=== PATIENT | female | born 2000 | race Caucasian/White ===

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

== ENCOUNTER 2020-01-02 16:13 | Emergency (ER) | payer MEDICAID, SELFPAY ==
[2020-01-02 16:14] VITALS: BP 156/89; PULSE 107; PULSE 99; RESP 17; RESP 18; TEMP 36.7; O2SAT 96; BMI 40.5
--- NOTE | 2020-01-02 16:35 | ED.DCSUM_ITS ---
History of Present Illness Chief Complaint: Abd Pain Informant: Patient, Family Onset: Days - 3 days Context: Gradual Onset Timing: Waxes and wanes Current Severity: Mild Maximum Severity: Moderate Narrative: Patient presents a 3-day history of periumbilical abdominal pain. Family notes he thought was because she is not having normal bowel movements and gave her a laxative. In spite of having a bowel movement she still complains of pain. She had no fever. No vomiting. She has not had a menstrual cycle in the last 4 months. Family family called PCP today who advised her to come to the emergency room for possible CT scan. - Past Medical History (1) Hypothyroid Status: Chronic Past Medical History - Allergies and Home Meds Allergies/Adverse Reactions: Allergies amoxicillin [From Augmentin] Allergy (Verified 01/02/20 16:13) Other amoxicillin trihydrate [From Augmentin] Allergy (Verified 01/02/20 16:13) Other azithromycin Allergy (Verified 01/02/20 16:13) Other clavulanic acid [From Augmentin] Allergy (Verified 01/02/20 16:13) Other erythromycin base [From E-Mycin] Allergy (Verified 01/02/20 16:13) Unknown potassium clavulanate [From Augmentin] Allergy (Verified 01/02/20 16:13) Other ibuprofen Adverse Reaction (Verified 01/02/20 16:13) Nausea Primary Care Physician: Care Physician,No Primary [Primary Care Provider] - Prior records reviewed: Yes Surgical History: no surgical history Lives: With Family Smoking Status: Never smoker Review of Systems General: Denies: Chills, Fever Eyes: Denies: Visual changes - bilaterally ENT: Denies: Bilateral ear pain Cardiovascular: Denies: Chest pain Respiratory: Denies: Dyspnea, Cough Gastrointestinal: Reports: Abdominal pain. Denies: Nausea, Vomiting, Diarrhea Genitourinary: Denies: Dysuria Musculoskeletal: Denies: Extremity Pain Skin: Denies: Rash Neurological: Denies: Headache Allergy: Denies: Uticaria Physical Exam Vital Signs/Narrative: Vital Signs Temp Pulse Resp BP Pulse Ox 01/02/20 16:14 98.0 F 99 17 156/89 H 96 Inital Vital Signs reviewed: Yes General: Well nourished, Well developed Head: Normocephalic ENT: Moist mucous membranes Neck: Supple Cardiovascular: Regular rate, Regular rhythm Respiratory: No distress, CTA bilaterally Abdomen: Soft, Nontender, Hypoactive bowel sounds Extremities: Nontender Skin: Normal color Neurological: Alert, Oriented x3 Psychological: Normal affect Diagnostic/Tx/Re-eval Impressions Abdomen X-Ray 01/02/20 17:15 IMPRESSION: Question mild constipation without evidence for obstruction. Electronically Signed: Sameer Saxena DO at 17:35 EDT Tel [phone], Service support , 01/02/20 17:15 XRAY Abdomen [Abd Inc Decub and/or Erect] [RAD] Stat Laboratory Results 01/02/20 01/02/20 01/02/20 16:50 16:50 16:50 WBC 12.7 H RBC 5.25 Hgb 14.7 Hct 46.5 MCV 88.6 MCH 28.0 MCHC 31.6 L RDW Std Deviation 43.8 RDW Coeff of Alcon 13.5 Plt Count 323 MPV 10.1 Immature Gran % (Auto) 0.200 Neut % (Auto) 49.9 Lymph % (Auto) 39.7 Mccreary % (Auto) 8.2 Eos % (Auto) 1.3 Baso % (Auto) 0.7 Absolute Neuts (auto) 6.3 Absolute Lymphs (auto) 5.04 H Nucleated RBC % 0 Differential Comment SEE COMMENT Platelet Estimate ADEQUATE RBC Morphology N CHROM Anisocytosis RARE Sodium 139 Potassium 3.8 Chloride 106 Carbon Dioxide 29.0 Anion Gap 4 L BUN 9 Creatinine 0.63 Estim Creat Clear Calc 144.89 Est GFR (MDRD) Af Amer 156 Est GFR (MDRD) Non-Af 129 BUN/Creatinine Ratio 14.3 Glucose 81 Calcium 9.6 Serum , Qual NEGATIVE Urine Color Urine Clarity Urine pH Ur Specific Lorraine Urine Protein Urine Glucose (UA) Urine Ketones Urine Occult Blood Urine Nitrite Urine Bilirubin Urine Urobilinogen Ur Leukocyte Esterase Urine RBC Urine WBC Ur Squamous Epith Cells Urine Bacteria Urine Mucus 01/02/20 19:05 WBC RBC Hgb Hct MCV MCH MCHC RDW Std Deviation RDW Coeff of Alcon Plt Count MPV Immature Gran % (Auto) Neut % (Auto) Lymph % (Auto) Mccreary % (Auto) Eos % (Auto) Baso % (Auto) Absolute Neuts (auto) Absolute Lymphs (auto) Nucleated RBC % Differential Comment Platelet Estimate RBC Morphology Anisocytosis Sodium Potassium Chloride Carbon Dioxide Anion Gap BUN Creatinine Estim Creat Clear Calc Est GFR (MDRD) Af Amer Est GFR (MDRD) Non-Af BUN/Creatinine Ratio Glucose Calcium Serum , Qual Urine Color Yellow Urine Clarity Sl. Cloudy Urine pH 5.0 Ur Specific Lorraine 1.020 Urine Protein Negative Urine Glucose (UA) Normal Urine Ketones Negative Urine Occult Blood 10 H Urine Nitrite Negative Urine Bilirubin Negative Urine Urobilinogen Normal Ur Leukocyte Esterase 100 H Urine RBC 0-5 SEEN Urine WBC 0-5 SEEN Ur Squamous Epith Cells 10-25 SEEN Urine Bacteria 0 SEEN Urine Mucus 0 SEEN - Medical Decision Making Patient was given p.o. fluids. At this time there is no evidence of acute infection. I am not impressed with abdominal exam in regards to appendicitis. She does have mild constipation. She begin a prescription for MiraLAX. ED Disposition - Plan for ED Patient: Disposition: Home or Assisted Living Diagnosis: Abdominal pain, Constipation Instructions: ED Constipation, ED Abdominal Pain Unkn Cause Fem Prescriptions: Polyethylene Glycol 3350 [Miralax] 17 gm PO DAILY #30 packet Transmission Status: Pending to [facility]
[2020-01-02 17:00] LABS: Absolute Lymphocyte Count 5.04 X10^3/uL (0.83-4.51); Absolute Neutrophil Count 6.3 X10^3/uL (2.0-7.7); Basophil# 0.09 X10^3/uL; Basophil% 0.7 % (0-1); Eosinophil# 0.16 X10^3/uL; Eosinophils% 1.3 % (0-5); Hematocrit 46.5 % (37-47); Hemoglobin 14.7 g/dL (12.0-15.0); Lymphocyte # 5.04 X10^3/ul (4.0); Lymphocyte % 39.7 % (19-41); Mean Corp Hgb Conc 31.6 g/dL (32-36); Mean Corpuscular Volume 88.6 fL (81-99); Mean Platelet Vol. 10.1 fl (6.2-12.0); Monocyte# 1.04 X10^3/uL; Monocyte% 8.2 % (0-10); NRBC Flagged by Analyzer 0 % (0-5); Neutrophil # 6.34 X10^3/uL (2.7-7.7); Neutrophil % 49.9 % (47-70); POSITIVE DIFFERENTIAL YES; Platelet Count 323 K/mm3 (150-450); RBC Distribution Width CV 13.5 % (11.6-14.6); RBC Distribution Width SD 43.8 fl (35.1-43.9); Red Blood Count 5.25 M/mm3 (4.2-5.4); White Blood Count 12.7 K/mm3 (4.4-11.0)
[2020-01-02 17:15] LABS: Anion Gap 4 (5-15); BUN 9 mg/dL (7-18); BUN/Creat Ratio 14.3 RATIO (10-20); Calcium,Total 9.6 mg/dL (8.5-10.1); Chloride 106 mmol/L (98-107); Creatinine, Serum 0.63 mg/dL (0.55-1.02); EST Glomerular Filtration Rate 129 mL/min (>60); Est Glom Filt Rate - Afr Amer 156 mL/min (>60); Estimated Creatinine Clearance 144.89 ml/min; Glucose 81 mg/dL (74-106); Potassium 3.8 mmol/L (3.5-5.1); Sodium Level 139 mmol/L (136-145)
--- NOTE | 2020-01-02 17:15 | RAD_ITS ---
STUDY: X-RAY - ABDOMEN/PELVIS REASON FOR EXAM: Female, 19 years old. Mid abdominal pain beginning 2 days ago. TECHNIQUE: AP supine and upright views of the abdomen and pelvis. COMPARISON: April 29, 2019. FINDINGS: Normal visualized lung bases. Air and feces is seen within the colon without marked distention. There is no small bowel dilatation. There are no air-fluid levels. There is no demonstrated free abdominal air. Question hepatomegaly. The spleen and kidneys appear normal. Normal soft tissue structures. Normal visualized osseous structures. RAD/Abd Inc Decub and/or Erect IMPRESSION: Question mild constipation without evidence for obstruction. Electronically Signed: Sameer Saxena DO at 17:35 EDT Tel [phone], Service support ,
[2020-01-02 17:21] LABS: Differential Indicated SCAN CRITERIA MET
[2020-01-02 17:22] LABS: Internal QC Validated? YES +Cl - CLEAR BKGD; Pregnancy, Serum, hCG Quali. NEGATIVE Negative
[2020-01-02 17:47] LABS: Anisocytosis RARE; Platelet Estimate ADEQUATE (ADEQ); Red Cell Morphology N CHROM NORMAL (NORM C&C)
--- NOTE | 2020-01-02 17:57 | CM.ED ---
Social Work Consult: ED Care Plan Meeting with patient and patient mother, Prabha. This social work administrator introduced self as well as social work administrator role. This social work administrator attempting to speak with patient and Prabha answers questions for patient. This social work administrator continuing to attempt to speak directly to patient, Prabha keeps speaking for patient. Prabha stating to be patient guardian and to make choices for patient. Patient did ask this social work administrator for a drink of water. Due to COVID-19 precautions at this time did not explore option of having Prabha step out of room at this time. This social work administrator speaking with Dr. Conrad, able to provide patient with drink of water, provided patient with glass of water. Patient did not make eye contact with this social work administrator and watched TV during the whole encounter. Will continue to follow and assist in helping to connect patient to the community. Patient being sent to the ED today per PCP recommendation. Erik FUNES, KIRT
[2020-01-02 18:13] VITALS: BP 132/82; PULSE 85; RESP 18; TEMP 36.8; O2SAT 95
[2020-01-02 19:12] LABS: Bacteria 0 SEEN /hpf (None Seen); Mucous, Urine 0 SEEN /hpf (<or=2+)
[2020-01-02 19:14] LABS: Color, Urine Yellow (Yellow); Glucose, Dipstick Normal (Normal); Ketone-Dipstick Negative (Negative); Leukocyte Esterase-Dipstick 100 /ul (Negative); Nitrite-Dipstick Negative (Negative); Occult Blood-Urine 10 /ul (Negative); Protein-Dipstick Negative (Negative); Urine Bilirubin Dipstick Negative (Negative); Urine Clarity Sl. Cloudy (Clear); Urine Urobilinogen Normal (Normal)
[2020-01-02 19:27] LABS: Red Blood Cells-Urine 0-5 SEEN /hpf (0-5); Squamous Epithelial Cells - UA 10-25 SEEN /hpf (5-10); White Blood Cells 0-5 SEEN /hpf (0-5)
== END 2020-01-02 19:51 | disposition home or self-care (01) ==
PROVIDERS: Emergency Provider Emergency Medicine
DX: K59.00 Constipation, unspecified (principal); R10.33 Periumbilical pain; E03.9 Hypothyroidism, unspecified; Z79.899 Other long term (current) drug therapy; Z88.0 Allergy status to penicillin; Z88.6 Allergy status to analgesic agent; Z88.1 Allergy status to other antibiotic agents
CPT/HCPCS: 74019; 80048; 81001; 84703; 85025; 99283; A4216

== ENCOUNTER 2020-01-11 13:55 | Emergency (ER) | payer MEDICAID, SELFPAY ==
[2020-01-11 13:57] VITALS: BP 149/84; PULSE 101; RESP 17; TEMP 36.3; O2SAT 100; BMI 42.7
--- NOTE | 2020-01-11 14:36 | ED.VIS.GI ---
History of Present Illness Chief Complaint: Constipation Informant: Patient, Family - Abdominal Pain/Flank Pain Onset: Weeks - 1-2 Context: Gradual Onset Timing: Intermittent Quality: Cramping Location: - - periumbilical Current Severity: Mild Maximum Severity: Mild - Nausea/Vomiting/Emesis GI Symptom: Nausea. Negative for: Vomiting - Diarrhea/Melena/Hematochezia GI Symptom: Negative for: Diarrhea, Melena, Hematochezia Associated Symptoms: Negative for: Dysuria, Frequency, Hematuria, Urgency Narrative: Patient brought by her long-term guardian for continued symptoms that she was here for a week or so ago. They are intermittent periumbilical abdominal aching/cramping, some nausea here and there but no vomiting or fevers. Symptoms improve after bowel movements. Able to eat and drink without any difficulty. She does have periods without the discomfort. No issues urinating or vaginal symptoms. Also states for the past week or 2 she has had painful numbness below the right knee, mostly in the lateral part of her lower leg and dorsum of her foot. Denies any pain in her back or any injuries recently or surgeries. Prior similar symptoms: Yes Recent Illness/Hospitalization: No - Past Medical History (1) Constipation Status: Chronic (2) Hypothyroid Status: Chronic Past Medical History - Allergies and Home Meds Allergies/Adverse Reactions: Allergies amoxicillin [From Augmentin] Allergy (Verified 01/11/20 13:57) Other amoxicillin trihydrate [From Augmentin] Allergy (Verified 01/11/20 13:57) Other azithromycin Allergy (Verified 01/11/20 13:57) Other clavulanic acid [From Augmentin] Allergy (Verified 01/11/20 13:57) Other erythromycin base [From E-Mycin] Allergy (Verified 01/11/20 13:57) Unknown potassium clavulanate [From Augmentin] Allergy (Verified 01/11/20 13:57) Other ibuprofen Adverse Reaction (Verified 01/11/20 13:57) Nausea Primary Care Physician: Pan Contreras MD [Primary Care Provider] - Surgical History: no surgical history Lives: With Family Smoking Status: Never smoker Review of Systems General: Denies: Chills, Fever, Sweats Eyes: Denies: Visual changes - bilaterally, Diplopia ENT: Denies: Rhinorrhea, Sore throat Cardiovascular: Denies: Chest pain, Palpitations Respiratory: Denies: Dyspnea, Cough, Dyspnea on exertion Gastrointestinal: Reports: Abdominal pain, Nausea, Constipation. Denies: Vomiting, Diarrhea, Melena, Hematochezia Genitourinary: Denies: Dysuria, Hematuria, Frequency Musculoskeletal: Reports: Extremity Pain. Denies: Back pain Skin: Denies: Rash, Wounds Neurological: Reports: Parasthesia. Denies: Headache, Weakness Physical Exam Vital Signs/Narrative: Vital Signs Temp Pulse Resp BP Pulse Ox 01/11/20 13:57 97.4 F L 101 H 17 149/84 H 100 Inital Vital Signs reviewed: Yes General: Well nourished, Well developed, Obese, No Acute Distress Head: Normocephalic, Atraumatic Eyes: Perrl, EOMI ENT: Moist mucous membranes, No rhinorrhea Neck: Supple, Nontender Cardiovascular: Regular rate, Regular rhythm, No murmurs Respiratory: No distress, CTA bilaterally, Chest nontender Abdomen: Soft, Nontender, Nondistended, Normal bowel sounds Back: Nontender, Normal Inspection. Negative for: CVA tenderness Extremities: Nontender, No edema. Negative for: Calf Tenderness Skin: Normal color, No rash - Including the right lower extremity, No Trauma Neurological: Alert, Oriented x3, Cranial nerves II-XII grossly intact, Normal Strength, Parasthesia - Peroneal aspect of the dorsum of the right foot and lateral lower leg Psychological: Normal affect, Normal Mood Diagnostic/Tx/Re-eval - Medical Decision Making Patient's abdomen is very benign. She had an x-ray a week or so ago along with some blood work that I reviewed, the x-ray was consistent with constipation as is her history and exam. Therefore I do not think she needs any new emergent studies/ancillary testing performed. I discussed giving her a dose of Bentyl, Zofran, add magnesium citrate here after offered an enema and declining it. She was amenable to all of this, and she was given appropriate discharge instructions with follow-up afterwards. We also discussed about her symptoms of peripheral neuropathic pain in her right lower extremity and to follow-up for that as well. ED Disposition - Plan for ED Patient: Disposition: Home or Assisted Living Diagnosis: Constipation, Peripheral neuropathic pain Instructions: ED Constipation, ED PERIPHERAL NEUROPATHY Referrals: Pan Contreras MD [Primary Care Provider] - 1 Week if not improving Additional Instructions: If you do not have a good bowel movement in 24 hours, drink the rest of the bottle of magnesium citrate, along with plenty of fluids. Continue taking docusate (stool softener) 1 pill twice daily. You may additionally take the equivalent of 1 packet of MiraLAX, dissolved in any liquid 8 ounces, once daily along with plenty of fluids.
[2020-01-11] MEDS: Ondansetron ODT 4 MG Tablet 8 MG PO (14:43)
[2020-01-11] MEDS: Dicyclomine 10 MG Capsule 20 MG PO (14:44)
[2020-01-11 15:06] VITALS: RESP 16
== END 2020-01-11 15:07 | disposition home or self-care (01) ==
PROVIDERS: Emergency Provider Emergency Medicine; PCP Pediatrics
DX: K59.00 Constipation, unspecified (principal); G62.9 Polyneuropathy, unspecified; E03.9 Hypothyroidism, unspecified; Z79.899 Other long term (current) drug therapy; Z88.6 Allergy status to analgesic agent; Z88.1 Allergy status to other antibiotic agents; Z88.0 Allergy status to penicillin
CPT/HCPCS: 99283

== ENCOUNTER 2020-01-19 18:16 | Emergency (ER) | payer MEDICAID, SELFPAY ==
[2020-01-19 18:17] VITALS: PULSE 100; RESP 18; TEMP 36.3; O2SAT 98; BMI 42.5
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
[2020-01-19 19:01] VITALS: BP 140/86
[2020-01-19 19:03] VITALS: BP 138/60; PULSE 92; RESP 18; O2SAT 98
== END 2020-01-19 19:04 | disposition home or self-care (01) ==
PROVIDERS: Emergency Provider Emergency Medicine; PCP Pediatrics
DX: S09.90XA Unspecified injury of head, initial encounter (principal); M79.641 Pain in right hand; W22.8XXA Striking against or struck by other objects, initial encounter; Y93.9 Activity, unspecified; Y99.9 Unspecified external cause status; Z88.6 Allergy status to analgesic agent; Z88.1 Allergy status to other antibiotic agents; Z88.0 Allergy status to penicillin
CPT/HCPCS: 99282

== ENCOUNTER 2020-03-27 12:12 | Emergency (ER) | payer MEDICAID, SELFPAY ==
[2020-03-27 12:14] VITALS: BP 162/99; PULSE 94; RESP 17; TEMP 36.1; O2SAT 96; BMI 36.3
[2020-03-27 13:30] VITALS: RESP 16
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
[2020-03-27 15:56] VITALS: BP 156/78; PULSE 18; RESP 55; TEMP 36.8; O2SAT 97
[2020-03-27] MEDS: Acetaminophen 325 MG Tablet 650 MG PO (15:59)
== END 2020-03-27 16:04 | disposition home or self-care (01) ==
PROVIDERS: Emergency Provider Student in an Organized Health Care Education/Training Program; PCP Pediatrics
DX: S09.90XA Unspecified injury of head, initial encounter (principal); R26.9 Unspecified abnormalities of gait and mobility; V86.55XA Driver of 3- or 4- wheeled all-terrain vehicle (ATV) injured in nontraffic accident, initial encounter; Y93.9 Activity, unspecified; Y92.9 Unspecified place or not applicable; Y99.9 Unspecified external cause status; E66.9 Obesity, unspecified; Z79.899 Other long term (current) drug therapy
CPT/HCPCS: 70450; 99283

== ENCOUNTER → 2020-04-10 08:55 | Outpatient (CLI) | payer MEDICAID, SELFPAY ==
[2020-03-27 12:14] VITALS: BMI 36.3
--- NOTE | 2020-04-10 13:03 | NEURO ---
NCS and/or EMG Patient Report Ordering Doctor: Pan Huggins DATE OF SERVICE: 04/10/20 Aide Lopez is a 19 year old female who presents for electrodiagnostic testing of the right lower limb. She reports pain for the past 6 months in the right lower leg Electrodiagnostic Findings: Right peroneal motor nerve demonstrates normal distal latency, amplitude and conduction velocity. Normal right tibial motor response. Normal right tibial and peroneal F wave. Normal right-sided H reflex. Sensory responses are within normal limits. On needle EMG, all muscles tested in the right lower limb showed no evidence of denervation with normal motor unit action potentials. Electrodiagnostic assessment: This is a normal electrodiagnostic study in the right lower limb. There is no electrodiagnostic evidence for peripheral neuropathy or lumbosacral radiculopathy. If there are any further questions, please do not hesitate to contact me
== END ==
PROVIDERS: PCP Pediatrics; Referring Provider Podiatrist Foot & Ankle Surgery; Visit Provider Podiatrist Foot & Ankle Surgery
DX: R20.0 Anesthesia of skin (principal)
CPT/HCPCS: 95886; 95909

== ENCOUNTER 2020-04-12 19:21 | Emergency (ER) | payer MEDICAID, SELFPAY ==
[2020-04-12 19:22] VITALS: BP 143/60; PULSE 102; RESP 18; TEMP 36.8; O2SAT 98; BMI 26.3
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
== END 2020-04-12 20:05 | disposition home or self-care (01) ==
LOC: ED 19:54
PROVIDERS: Emergency Provider Emergency Medicine; PCP Pediatrics
DX: S00.33XA Contusion of nose, initial encounter (principal); W20.8XXA Other cause of strike by thrown, projected or falling object, initial encounter; Y93.9 Activity, unspecified; Y92.9 Unspecified place or not applicable; Y99.9 Unspecified external cause status; F90.9 Attention-deficit hyperactivity disorder, unspecified type; Z79.899 Other long term (current) drug therapy
CPT/HCPCS: 99282

== ENCOUNTER 2020-04-20 19:46 | Emergency (ER) | payer MEDICAID, SELFPAY ==
[2020-04-20 19:49] VITALS: BP 161/128; PULSE 124; RESP 18; TEMP 37; O2SAT 96; BMI 43.5
--- NOTE | 2020-04-20 20:49 | RAD_ITS ---
STUDY: X-RAY - RIGHT SHOULDER REASON FOR EXAM: Female, 19 years old. Trauma TECHNIQUE: Two view(s) of the shoulder. COMPARISON: None. FINDINGS: There is no evidence of fracture or dislocation. There are no significant degenerative changes. There are no radiodense foreign bodies. RAD/Shoulder min 2 Views IMPRESSION: No fracture or dislocation. Electronically Signed: Néstor Zamora, at 21:17 EDT Tel , Service support ,
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
[2020-04-20 22:02] VITALS: RESP 18
== END 2020-04-20 22:02 | disposition home or self-care (01) ==
PROVIDERS: Emergency Provider Emergency Medicine; PCP Pediatrics
DX: S40.011A Contusion of right shoulder, initial encounter (principal); M54.2 Cervicalgia; R51 Headache; V89.2XXA Person injured in unspecified motor-vehicle accident, traffic, initial encounter; Y93.9 Activity, unspecified; Y92.9 Unspecified place or not applicable; Y99.9 Unspecified external cause status; G47.33 Obstructive sleep apnea (adult) (pediatric); Z79.899 Other long term (current) drug therapy
CPT/HCPCS: 73030; 99284

== ENCOUNTER → 2020-05-01 20:00 | Outpatient (CLI) | payer MEDICAID, SELFPAY | PROVIDERS: PCP Pediatrics; Referring Provider Psychiatry & Neurology Psychiatry; Visit Provider Psychiatry & Neurology Psychiatry | DX: G47.33 Obstructive sleep apnea (adult) (pediatric) (principal) | CPT/HCPCS: 95811 ==

== ENCOUNTER 2020-05-10 18:33 | Emergency (ER) | payer MEDICAID, SELFPAY ==
[2020-05-10 18:39] VITALS: BP 129/53; PULSE 113; RESP 17; TEMP 36.5; O2SAT 95; BMI 41.9
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
== END 2020-05-10 19:27 | disposition home or self-care (01) ==
LOC: ED 19:06
PROVIDERS: Emergency Provider Emergency Medicine; PCP Pediatrics
DX: S80.11XA Contusion of right lower leg, initial encounter (principal); Y04.0XXA Assault by unarmed brawl or fight, initial encounter; Y93.9 Activity, unspecified; Y92.9 Unspecified place or not applicable; Y99.9 Unspecified external cause status; E66.9 Obesity, unspecified; Z79.899 Other long term (current) drug therapy
CPT/HCPCS: 99282

== ENCOUNTER 2020-05-27 19:33 | Emergency (ER) | payer MEDICAID, SELFPAY ==
[2020-05-27 19:34] VITALS: BP 161/103; PULSE 69; RESP 18; TEMP 36.6; O2SAT 98; BMI 38.7
--- NOTE | 2020-05-27 20:09 | ED.VIS.GEN ---
History of Present Illness Chief Complaint: Fall Informant: Patient Narrative: Patient states that she was walking the backyard Wednesday night stepped a small hole fell down injured the lateral left hand. She also notes she got a bruise on her right knee but is able to ambulate normally. Pain got worse today when she was at school. Past Medical History - Allergies and Home Meds Allergies/Adverse Reactions: Allergies amoxicillin [From Augmentin] Allergy (Verified 05/27/20 19:37) Other amoxicillin trihydrate [From Augmentin] Allergy (Verified 05/27/20 19:37) Other azithromycin Allergy (Verified 05/27/20 19:37) Other clavulanic acid [From Augmentin] Allergy (Verified 05/27/20 19:37) Other erythromycin base [From E-Mycin] Allergy (Verified 05/27/20 19:37) Unknown potassium clavulanate [From Augmentin] Allergy (Verified 05/27/20 19:37) Other ibuprofen Adverse Reaction (Verified 05/27/20 19:37) Nausea Primary Care Physician: Pan Contreras MD [Primary Care Provider] - Surgical History: no surgical history Smoking Status: Never smoker Review of Systems General: Denies: Chills, Fever, Sweats Eyes: Denies: Visual changes - bilaterally, Diplopia ENT: Denies: Rhinorrhea, Sore throat Cardiovascular: Denies: Chest pain, Palpitations Respiratory: Denies: Dyspnea, Cough, Dyspnea on exertion Gastrointestinal: Denies: Abdominal pain, Nausea, Vomiting, Diarrhea, Melena, Hematochezia Genitourinary: Denies: Dysuria, Hematuria, Frequency Musculoskeletal: Reports: Extremity Pain. Denies: Back pain Skin: Denies: Rash, Wounds Neurological: Denies: Headache, Weakness, Numbness Physical Exam Vital Signs/Narrative: Vital Signs Temp Pulse Resp BP Pulse Ox 05/27/20 19:34 97.9 F 69 18 161/103 H 98 General: Well nourished, Well developed, No Acute Distress Head: Normocephalic, Atraumatic Eyes: Perrl, EOMI ENT: Moist mucous membranes, No rhinorrhea Neck: Supple, Nontender Cardiovascular: Regular rate, Regular rhythm, No murmurs Respiratory: No distress, CTA bilaterally, Chest nontender Abdomen: Soft, Nontender, Nondistended, Normal bowel sounds Back: Nontender, Normal Inspection Extremities: No edema, Tenderness - Tender palpation over the left fifth metacarpal Skin: Normal color, No rash Neurological: Alert, Oriented x3, Cranial nerves II-XII grossly intact, Normal Strength, Normal Sensation Psychological: Normal affect, Normal Mood Diagnostic/Tx/Re-eval - Medical Decision Making X-rays of the hand did not reveal an obvious fracture. Patient will be discharged home with supportive care. ED Disposition - Plan for ED Patient: Disposition: Home or Assisted Living Diagnosis: Contusion of left hand Instructions: ED HAND CONTUSION Referrals: Pan Contreras MD [Primary Care Provider] - As Needed
--- NOTE | 2020-05-27 20:10 | RAD_ITS ---
STUDY: X-RAY - LEFT HAND REASON FOR EXAM: Female, 19 years old. FALL TECHNIQUE: 2 view(s) of the hand. COMPARISON: 02/28/2019 FINDINGS: Normal radiocarpal articulation. Normal distal radioulnar joint. Normal visualized carpal bones. Normal carpal articulations Normal carpometacarpal articulation of the thumb. Normal second through fifth carpometacarpal joints. Normal metacarpi. Normal metacarpophalangeal joint of the thumb. Normal interphalangeal joint of the thumb. Normal proximal and distal phalanges of the thumb. Normal metacarpophalangeal joints of the second through fifth fingers. Normal proximal and distal interphalangeal joints of the second through fifth fingers. Normal phalanges of the second through fifth fingers. The soft tissue structures are unremarkable. RAD/Hand 2 Views IMPRESSION: Normal x-ray examination of the hand. Electronically Signed: Veronique Stanley MD at 20:50 EDT Tel , Service support ,
== END 2020-05-27 20:40 | disposition home or self-care (01) ==
PROVIDERS: Emergency Provider Emergency Medicine; PCP Pediatrics
DX: S60.222A Contusion of left hand, initial encounter (principal); X58.XXXA Exposure to other specified factors, initial encounter
CPT/HCPCS: 73120; 99282

== ENCOUNTER 2020-06-01 13:53 | Emergency (ER) | payer MEDICAID, SELFPAY ==
[2020-06-01 13:55] VITALS: BP 135/72; PULSE 112; RESP 16; TEMP 36.2; O2SAT 98; BMI 43.7
--- NOTE | 2020-06-01 14:32 | RAD_ITS ---
STUDY: X-RAY - PELVIS AND RIGHT HIP REASON FOR EXAM: Female, 19 years old. FELL 5 DAYS AGO. PAIN TECHNIQUE: 3 views of the pelvis and hip. COMPARISON: None. FINDINGS: There is a non-specific bowel gas pattern. Normal visualized soft tissue structures. Normal bilateral iliac wings, sacroiliac joints and visualized sacrum. Normal bilateral superior and inferior pubic rami. Normal pubic symphysis. Normal bilateral ischial tuberosities. Normal visualized femoral head. Normal acetabulum. Normal hip joint. RAD/HIP, UNI W/ Pelvis 2-3 Views IMPRESSION: Normal x-ray examination of the pelvis and hip. Electronically Signed: Gallito Beal MD at 15:17 EDT Tel , Service support ,
[2020-06-01] MEDS: Naproxen 500 MG Tablet PO (14:55)
--- NOTE | 2020-06-01 14:55 | ED.VIS.INJ ---
History of Present Illness Chief Complaint: Lower Extremity Injury Informant: Patient, Family Onset: Days - Reoccurred 4 days ago Mechanism/Context: Fall - Fall. Her right foot went into a hole and she stoved her right lower extremity and complained of right hip pain immediately. Mother has been giving her Tylenol without improvement. Quality of Pain: Dull, Aching, Throbbing Location: Right greater trochanteric region Current Severity: Mild Maximum Severity: Moderate Worsened by: Movement, walking and bending Relieved by: Nothing Associated Symptoms: Negative for: Parasthesias, Weakness, Loss of function, Inability to ambulate, Loss of consciousness Narrative: Patient is a 19-year-old who presents with right hip pain secondary to near fall. She localizes the pain to the right greater trochanteric region. She denies paresthesia, anesthesia motor weeks. She denies low back pain. She denies radicular pain. She denies bowel or bladder dysfunction. She denies saddle paresthesia or anesthesia. She denies foot drop. She denies weakness in her thigh muscles going up or down steps. I.e. her knee does not buckle. She has not noted a rash. There is no history of direct trauma. Tetanus Immunization: 5-10 years Prior similar symptoms: No Recent Illness/Hospitalization: No - Past Medical History (1) Hypothyroid Status: Chronic Past Medical History - Allergies and Home Meds Allergies/Adverse Reactions: Allergies amoxicillin [From Augmentin] Allergy (Verified 06/01/20 14:32) Other amoxicillin trihydrate [From Augmentin] Allergy (Verified 06/01/20 14:32) Other azithromycin Allergy (Verified 06/01/20 14:32) Other clavulanic acid [From Augmentin] Allergy (Verified 06/01/20 14:32) Other erythromycin base [From E-Mycin] Allergy (Verified 06/01/20 14:32) Unknown potassium clavulanate [From Augmentin] Allergy (Verified 06/01/20 14:32) Other ibuprofen Adverse Reaction (Verified 06/01/20 14:32) Nausea Primary Care Physician: Pan Contreras MD [Primary Care Provider] - Prior records reviewed: Yes Surgical History: no surgical history Lives: With Family Smoking Status: Never smoker Alcohol: None Drugs: None Review of Systems General: Denies: Chills, Fever, Malaise, Sweats Gastrointestinal: Denies: Nausea, Vomiting, Diarrhea Genitourinary: Denies: Dysuria, Hematuria, Frequency Musculoskeletal: Reports: Extremity Pain. Denies: Myalgias, Arthralgias, Neck pain, Back pain, Swelling Skin: Denies: Rash, Wounds Neurological: Denies: Weakness, Parasthesia, Numbness Hematologic: Denies: Easy bruising, Easy bleeding, Lymphadenopathy Allergy: Denies: Uticaria Physical Exam Vital Signs/Narrative: Vital Signs Temp Pulse Resp BP Pulse Ox 06/01/20 13:55 97.2 F L 112 H 16 135/72 H 98 Inital Vital Signs reviewed: Yes General: Well nourished, Well developed, Obese Head: Normocephalic, Atraumatic Eyes: Perrl, EOMI. Negative for: Pale conjunctiva, Scleral icterus Neck: Nontender, Full ROM. Negative for: Spinal Tenderness, Paraspinal Tenderness Cardiovascular: Regular rate, Regular rhythm, No murmurs, Normal S1, Normal S2 Respiratory: No distress, CTA bilaterally, Chest nontender Abdomen: Soft, Nontender, Nondistended, Normal bowel sounds, No masses Back: Nontender, Negative SLR - Right, Negative SLR - Left. Negative for: CVA Tenderness - Right, CVA Tenderness - Left Skin: Normal color, No rash, No Trauma. Negative for: Cyanosis, Diaphoresis, Jaundice Neurological: Alert, Oriented x3, Cranial nerves II-XII grossly intact, Normal Strength, Normal Sensation, Normal DTR - Tell and ankle reflex are 2+ symmetric with no clonus or Babinski sign. EHLs intact. She has pain with passive flexion extension of the hip as well as internal and external rotation. DP and PT pulse are palpable. Psychological: Depressed Diagnostic/Tx/Re-eval Chest X-Ray - ED: Read by ED Physician, - - 3 view x-ray of the right hip reveals no fracture, subluxation or dislocation. There is no evidence of foreign body. There is no soft tissue swelling noted. No comparison. 06/01/20 14:32 HIP, UNI W/ Pelvis 2-3 Views [RAD] Stat - Medical Decision Making He was obtained. X-rays interpreted by me as negative. This was obtained to rule out fracture versus sprain. ED Disposition - Plan for ED Patient: Disposition: Home or Assisted Living Diagnosis: Strain of right hip and thigh Instructions: ED Strain Muscle Ext Prescriptions: Naproxen [Naprosyn] 500 mg PO BID #14 tab Transmission Status: Pending to [facility] Referrals: Pan Contreras MD [Primary Care Provider] - 1 Week if not improving
== END 2020-06-01 15:09 | disposition home or self-care (01) ==
PROVIDERS: Emergency Provider Emergency Medicine; PCP Pediatrics
DX: S76.011A Strain of muscle, fascia and tendon of right hip, initial encounter (principal); S76.911A Strain of unspecified muscles, fascia and tendons at thigh level, right thigh, initial encounter; W17.2XXA Fall into hole, initial encounter; Y93.9 Activity, unspecified; Y92.9 Unspecified place or not applicable; Y99.9 Unspecified external cause status; E03.9 Hypothyroidism, unspecified; E66.9 Obesity, unspecified; Z79.899 Other long term (current) drug therapy
CPT/HCPCS: 73502; 99283

== ENCOUNTER 2020-06-16 12:18 | Emergency (ER) | payer MEDICAID, SELFPAY ==
[2020-06-16 12:19] VITALS: BP 133/93; PULSE 98; RESP 16; TEMP 36.2; O2SAT 96; BMI 37.3
--- NOTE | 2020-06-16 12:28 | ED.VIS.GEN ---
History of Present Illness Chief Complaint: Sore Throat Informant: Patient Narrative: 19-year-old female presenting with left ear pain last couple of days. She is not had any drainage. She denies fever at home. She went to the urgent care today who diagnosed her with otitis media and sent her prescription for what sounds like amoxicillin, however they also sent her to the ER for COVID?19 testing. Patient does not have shortness of breath, cough, myalgias, loss of taste or smell, known sick contacts. - Past Medical History (1) Hypothyroid Status: Chronic Past Medical History - Allergies and Home Meds Allergies/Adverse Reactions: Allergies amoxicillin [From Augmentin] Allergy (Verified 06/16/20 12:19) Other amoxicillin trihydrate [From Augmentin] Allergy (Verified 06/16/20 12:19) Other azithromycin Allergy (Verified 06/16/20 12:19) Other clavulanic acid [From Augmentin] Allergy (Verified 06/16/20 12:19) Other erythromycin base [From E-Mycin] Allergy (Verified 06/16/20 12:19) Unknown potassium clavulanate [From Augmentin] Allergy (Verified 06/16/20 12:19) Other ibuprofen Adverse Reaction (Verified 06/16/20 12:19) Nausea Primary Care Physician: Contreras Thomas DO [STAFF PHYSICIAN] - Pan Contreras MD [Primary Care Provider] - Past Medical History: - - Reviewed and problem list Surgical History: no surgical history Lives: With Family Smoking Status: Never smoker Alcohol: None Drugs: None Review of Systems General: Denies: Chills, Fever Eyes: Denies: Visual changes - bilaterally, Diplopia ENT: Reports: Right ear pain, Sore throat. Denies: Rhinorrhea Cardiovascular: Denies: Chest pain, Palpitations Respiratory: Denies: Dyspnea, Cough, Sputum Gastrointestinal: Denies: Abdominal pain, Nausea, Vomiting Genitourinary: Denies: Dysuria, Hematuria Musculoskeletal: Denies: Myalgias, Arthralgias Skin: Denies: Rash, Abscess Neurological: Denies: Headache, Weakness Physical Exam Vital Signs/Narrative: Vital Signs Temp Pulse Resp BP Pulse Ox 06/16/20 12:19 97.2 F L 98 16 133/93 H 96 General: Well nourished, No Acute Distress Head: Normocephalic, Atraumatic Eyes: Perrl, EOMI ENT: Moist mucous membranes, - - Right TM is within normal limits. External auditory canal is also free of erythema is no pain with movement of the tragus. Left TM is erythematous and bulging with tenderness on exam. Oropharynx has no erythema or exudates.. Negative for: No rhinorrhea Neck: Supple, Nontender Cardiovascular: Regular rate, Regular rhythm Respiratory: No distress, CTA bilaterally Extremities: - Skin: Normal color, No rash Neurological: Alert, Oriented x3 Psychological: Normal affect Diagnostic/Tx/Re-eval - Medical Decision Making She was seen and examined on arrival. Her vital signs are stable and she is afebrile. She is nontoxic-appearing. She has no signs or symptoms of COVID?19. She has a clear left otitis media and already has antibiotics prescribed. Patient and family counseled to fill the prescription and take them as prescribed. They are given return precautions. I do not believe she needs to be tested for COVID?19. Patient be discharged home in stable condition. Impression: 1. Left otitis media ED Disposition - Plan for ED Patient: Disposition: Home or Assisted Living Instructions: ED SEROUS OTITIS MEDIA Adult Referrals: Pan Contreras MD [Primary Care Provider] - Contreras Thomas DO [STAFF PHYSICIAN] -
== END 2020-06-16 12:53 | disposition home or self-care (01) ==
LOC: ED 12:45
PROVIDERS: Emergency Provider Student in an Organized Health Care Education/Training Program; PCP Pediatrics
DX: H66.92 Otitis media, unspecified, left ear (principal); E03.9 Hypothyroidism, unspecified; Z79.899 Other long term (current) drug therapy
CPT/HCPCS: 99283

== ENCOUNTER → 2020-06-20 17:14 | Outpatient (CLI) | payer MEDICAID, SELFPAY ==
[2020-06-16 12:19] VITALS: BMI 37.3
== END ==
PROVIDERS: PCP Pediatrics; Referring Provider Registered Nurse; Visit Provider Registered Nurse
DX: Z20.828 Contact with and (suspected) exposure to other viral communicable diseases (principal)
CPT/HCPCS: 87635; C9803; U0003

== ENCOUNTER 2020-07-08 20:42 | Emergency (ER) | payer MEDICAID, SELFPAY ==
[2020-07-02 11:44] VITALS: BMI 37.3
[2020-07-08 20:42] VITALS: BP 142/85; PULSE 105; RESP 20; TEMP 36.6; O2SAT 95; BMI 42.7
--- NOTE | 2020-07-08 20:53 | ED.VIS.GEN ---
History of Present Illness Chief Complaint: Lower Extremity Injury Detail of Chief Complaint: Left foot injury Informant: Patient, Family Onset: Days Context: Gradual Onset Current Severity: Mild Maximum Severity: Mild Narrative: Patient presents with 2-day history of left foot pain. She states the bathroom door in their home closed pinching her left foot. She then dropped her phone on her foot as well. She does have crutches with her but triage nurse states she was not using them correctly. She denies paresthesias or any other injury. - Past Medical History (1) GERD (gastroesophageal reflux disease) Status: Chronic (2) Hypothyroid Status: Chronic Past Medical History - Allergies and Home Meds Allergies/Adverse Reactions: Allergies amoxicillin [From Augmentin] Allergy (Verified 07/02/20 11:42) Other amoxicillin trihydrate [From Augmentin] Allergy (Verified 07/02/20 11:42) Other azithromycin Allergy (Verified 07/02/20 11:42) Other clavulanic acid [From Augmentin] Allergy (Verified 07/02/20 11:42) Other erythromycin base [From E-Mycin] Allergy (Verified 07/02/20 11:42) Unknown potassium clavulanate [From Augmentin] Allergy (Verified 07/02/20 11:42) Other ibuprofen Adverse Reaction (Verified 07/02/20 11:42) Nausea Primary Care Physician: Pan Contreras MD [Primary Care Provider] - Prior records reviewed: Yes Surgical History: no surgical history Lives: With Family Smoking Status: Never smoker Review of Systems General: Denies: Chills, Fever Eyes: Denies: Visual changes - bilaterally ENT: Denies: Bilateral ear pain Cardiovascular: Denies: Chest pain Respiratory: Denies: Dyspnea, Cough Gastrointestinal: Denies: Abdominal pain, Nausea, Vomiting, Diarrhea Musculoskeletal: Reports: Extremity Pain. Denies: Swelling Skin: Denies: Rash, Wounds Neurological: Denies: Headache, Weakness, Parasthesia Hematologic: Denies: Easy bruising, Easy bleeding Allergy: Denies: Uticaria Physical Exam Vital Signs/Narrative: Vital Signs Temp Pulse Resp BP Pulse Ox 07/08/20 20:42 97.8 F 105 H 20 H 142/85 H 95 Inital Vital Signs reviewed: Yes General: Well nourished, Well developed Head: Normocephalic ENT: Moist mucous membranes Neck: Supple Cardiovascular: Regular rate, Regular rhythm Respiratory: No distress, CTA bilaterally Abdomen: Soft, Nontender Extremities: - - Mild tenderness of the left midfoot. No significant edema, ecchymosis, or abrasions noted. Strong pulses. Normal cap refill and sensation. Neurological: Alert, Oriented x3, Normal Strength, Normal Sensation Psychological: Normal affect Diagnostic/Tx/Re-eval Left foot x-ray per my review reveals no bony injury. - Medical Decision Making Test results discussed with patient family at bedside. She already has crutches that she can use. Gene wrap is applied. She can use Tylenol for pain. ED Disposition - Plan for ED Patient: Disposition: Home or Assisted Living Diagnosis: Foot contusion Instructions: ED EXTREMITY CONTUSION Lower Referrals: Pan Contreras MD [Primary Care Provider] - As Needed
--- NOTE | 2020-07-08 21:07 | RAD_ITS ---
STUDY: X-RAY - LEFT FOOT CLINICAL: Female, 19 years old. LEFT FOOT PAIN TECHNIQUE: 3 view(s) of the foot. COMPARISON: None. FINDINGS: Normal talus, calcaneus, and tarsal bones. Normal visualized subtalar, talonavicular, calcaneocuboid, tarsal and tarsometatarsal articulations. Normal metatarsi. Normal metatarsophalangeal joint of the great toe. Normal tibial and fibular sesamoid bones. Normal interphalangeal joint of the great toe. Possible old injury at the base of the distal phalanx of the great toe. Normal second through fifth metatarsophalangeal joints. Normal interphalangeal joints and phalanges of the lesser toes. The soft tissue structures are unremarkable. RAD/Foot min 3 Views IMPRESSION: No acute bony injury of the foot. Electronically Signed: Ben Glover DO at 22:26 EDT Tel [phone], Service support ,
== END 2020-07-08 22:04 | disposition home or self-care (01) ==
LOC: ED 21:58
PROVIDERS: Emergency Provider Emergency Medicine; PCP Pediatrics
DX: S90.32XA Contusion of left foot, initial encounter (principal); W23.0XXA Caught, crushed, jammed, or pinched between moving objects, initial encounter; Y93.9 Activity, unspecified; Y92.9 Unspecified place or not applicable; Y99.9 Unspecified external cause status; E03.9 Hypothyroidism, unspecified; K21.9 Gastro-esophageal reflux disease without esophagitis; Z79.899 Other long term (current) drug therapy
CPT/HCPCS: 73630; 99281; 99283

== ENCOUNTER 2020-08-02 18:00 | Emergency (ER) | payer MEDICAID, SELFPAY ==
[2020-08-02 18:01] VITALS: BP 126/104; PULSE 110; RESP 19; TEMP 36.3; O2SAT 95; BMI 47.2
--- NOTE | 2020-08-02 18:06 | RAD_ITS ---
STUDY: X-RAY - LEFT SHOULDER REASON FOR EXAM: Female, 19 years old. LEFT ARM PAIN AFTER PLAYING BASKETBALL TECHNIQUE: 2 view(s) of the shoulder. COMPARISON: 21 January 2019 FINDINGS: Normal glenohumeral articulation. Normal acromioclavicular joint. Normal acromion. Normal humeral head and visualized proximal humerus. The soft tissue structures are unremarkable. Normal visualized pulmonary apex. RAD/Shoulder min 2 Views IMPRESSION: Normal x-ray examination of the shoulder. Electronically Signed: Heath Beltran, at 18:40 EST Tel , Service support ,
--- NOTE | 2020-08-02 18:20 | RAD_ITS ---
STUDY: X-RAY - LEFT CLAVICLE REASON FOR EXAM: Female, 19 years old. LEFT ARM PAIN AFTER PLAYING BASKETBALL TECHNIQUE: 2 view(s) of the clavicle. COMPARISON: None. FINDINGS: Normal clavicle. Normal acromioclavicular articulation. Normal visualized sternoclavicular articulation. Normal visualized pulmonary apex. RAD/Clavicle IMPRESSION: Normal x-ray examination of the clavicle. Electronically Signed: Heath Beltran, at 18:41 EST Tel , Service support ,
--- NOTE | 2020-08-02 19:01 | ED.VIS.GEN ---
History of Present Illness Chief Complaint: Upper Extremity Injury Informant: Patient Narrative: 19-year-old female with developmental delay presents with left shoulder pain. States that she was playing basketball when she fell and struck her left shoulder. No head injury or loss of consciousness. States she has aching pain in her left shoulder. Worse with movement. Denies any numbness or tingling. Past Medical History - Allergies and Home Meds Allergies/Adverse Reactions: Allergies amoxicillin [From Augmentin] Allergy (Verified 08/02/20 18:01) Other amoxicillin trihydrate [From Augmentin] Allergy (Verified 08/02/20 18:) Other azithromycin Allergy (Verified 08/02/20 18:01) Other clavulanic acid [From Augmentin] Allergy (Verified 08/02/20 18:01) Other erythromycin base [From E-Mycin] Allergy (Verified 08/02/20 18:) Unknown potassium clavulanate [From Augmentin] Allergy (Verified 08/02/20 18:01) Other ibuprofen Adverse Reaction (Verified 08/02/20 18:01) Nausea Primary Care Physician: Pan Contreras MD [Primary Care Provider] - Past Medical History: - - DD Surgical History: no surgical history Lives: With Family Smoking Status: Never smoker Alcohol: None Drugs: None Review of Systems General: Denies: Chills, Fever, Sweats Eyes: Denies: Visual changes - bilaterally, Diplopia ENT: Denies: Rhinorrhea, Sore throat Cardiovascular: Denies: Chest pain, Palpitations Respiratory: Denies: Dyspnea, Cough, Dyspnea on exertion Gastrointestinal: Denies: Abdominal pain, Nausea, Vomiting, Diarrhea, Melena, Hematochezia Genitourinary: Denies: Dysuria, Hematuria, Frequency Musculoskeletal: Reports: Arthralgias. Denies: Back pain, Extremity Pain Skin: Denies: Rash, Wounds Neurological: Denies: Headache, Weakness, Numbness Physical Exam Vital Signs/Narrative: Vital Signs Temp Pulse Resp BP Pulse Ox 08/02/20 18:01 97.3 F L 110 H 19 H 126/104 H 95 Inital Vital Signs reviewed: Yes General: Well nourished, Well developed, No Acute Distress Head: Normocephalic, Atraumatic Eyes: Perrl, EOMI ENT: Moist mucous membranes, No rhinorrhea Neck: Supple, Nontender Cardiovascular: Regular rate, Regular rhythm, No murmurs Respiratory: No distress, CTA bilaterally, Chest nontender Abdomen: Soft, Nontender, Nondistended, Normal bowel sounds Back: Nontender, Normal Inspection Extremities: No edema, - - TTP over the anterior shoulder. Full ROM. Strong and palpable pulses. Skin: Normal color, No rash Neurological: Alert, Oriented x3, Cranial nerves II-XII grossly intact, Normal Strength, Normal Sensation Psychological: Normal affect, Normal Mood Diagnostic/Tx/Re-eval Clinical Impression(s) from Imaging Studies Shoulder X-Ray 08/02/20 18:06 IMPRESSION: Normal x-ray examination of the shoulder. Electronically Signed: Heath Ruby, at 18:40 EST Tel , Service support , Clavicle X-Ray 08/02/20 18:20 IMPRESSION: Normal x-ray examination of the clavicle. Electronically Signed: Imanimarylin Ruby, at 18:41 EST Tel , Service support , - Medical Decision Making Appears well nontoxic. Imaging negative. Patient will be given sling. Given Naprosyn for home. Asked to return for new or worsening symptoms. Patient agreeable and discharged home in stable condition. Impression: 1. Left shoulder contusion ED Disposition - Plan for ED Patient: Disposition: Home or Assisted Living Instructions: ED EXTREMITY CONTUSION Upper Prescriptions: Naproxen [Naprosyn] 500 mg PO BID #14 tab Prescription Printed Referrals: Pan Contreras MD [Primary Care Provider] - 2 Days
[2020-08-02 19:17] VITALS: PULSE 72; RESP 14
--- NOTE | 2020-08-02 19:18 | ED.RN ---
THIS NURSE REVIEWED D/C INSTRUCTIONS WITH PT AND MOTHER. BOTH VERBALIZED UNDERSTANDING OF INSTRUCTIONS. PT DENIES FURTHER NEEDS OR QUESTIONS AT THIS TIME
== END 2020-08-02 19:18 | disposition home or self-care (01) ==
LOC: ED 19:14
PROVIDERS: Emergency Provider Emergency Medicine; PCP Pediatrics
DX: S40.012A Contusion of left shoulder, initial encounter (principal); W01.10XA Fall on same level from slipping, tripping and stumbling with subsequent striking against unspecified object, initial encounter; Y93.67 Activity, basketball; Y92.9 Unspecified place or not applicable; Y99.9 Unspecified external cause status; R62.50 Unspecified lack of expected normal physiological development in childhood
CPT/HCPCS: 73000; 73030; 99282

== ENCOUNTER 2020-08-05 21:34 | Emergency (ER) | payer MEDICAID, SELFPAY ==
[2020-08-05 21:35] VITALS: BP 133/78; PULSE 88; RESP 18; TEMP 36.5; O2SAT 96; BMI 43.7
[2020-08-05 22:17] LABS: Bacteria 0 SEEN /hpf (None Seen); Mucous, Urine 0 SEEN /hpf (<or=2+)
[2020-08-05 22:33] LABS: Color, Urine Yellow (Yellow); Glucose, Dipstick Normal (Normal); Ketone-Dipstick Negative (Negative); Leukocyte Esterase-Dipstick 100 /ul (Negative); Nitrite-Dipstick Negative (Negative); Occult Blood-Urine Negative /ul (Negative); Protein-Dipstick 15 mg/dl (Negative); Urine Bilirubin Dipstick Negative (Negative); Urine Clarity Clear (Clear); Urine Urobilinogen Normal (Normal)
[2020-08-05 22:50] LABS: Red Blood Cells-Urine 0-5 SEEN /hpf (0-5); Squamous Epithelial Cells - UA 5-10 SEEN /hpf (5-10); White Blood Cells 0-5 SEEN /hpf (0-5)
--- NOTE | 2020-08-05 23:02 | ED.VIS.GEN ---
History of Present Illness Chief Complaint: Abd Pain Informant: Patient, Family Narrative: 19-year-old female who is well-known to the emergency department and has a care plan presents for the evaluation of abdominal pain, dysuria, left thigh pain. Symptoms abruptly began tonight. She was recently seen today for a ear infection and was placed on cefdinir. She has not yet taken it. Patient's not had any falls today. Normal bowel movement. She notes suprapubic discomfort and states it radiates to her hip. - Past Medical History (1) GERD (gastroesophageal reflux disease) Status: Chronic (2) Hypothyroid Status: Chronic Past Medical History - Allergies and Home Meds Allergies/Adverse Reactions: Allergies amoxicillin [From Augmentin] Allergy (Verified 08/02/20 18:01) Other amoxicillin trihydrate [From Augmentin] Allergy (Verified 08/02/20 18:01) Other azithromycin Allergy (Verified 08/02/20 18:01) Other clavulanic acid [From Augmentin] Allergy (Verified 08/02/20 18:01) Other erythromycin base [From E-Mycin] Allergy (Verified 08/02/20 18:01) Unknown potassium clavulanate [From Augmentin] Allergy (Verified 08/02/20 18:01) Other ibuprofen Adverse Reaction (Verified 08/02/20 18:01) Nausea Primary Care Physician: Pan Contreras MD [Primary Care Provider] - Prior records reviewed: Yes Surgical History: no surgical history Lives: With Family Smoking Status: Never smoker Alcohol: None Drugs: None Review of Systems General: Denies: Chills, Fever, Sweats Eyes: Denies: Visual changes - bilaterally, Diplopia ENT: Denies: Rhinorrhea, Sore throat Cardiovascular: Denies: Chest pain, Palpitations Respiratory: Denies: Dyspnea, Cough, Dyspnea on exertion Gastrointestinal: Reports: Abdominal pain. Denies: Nausea, Vomiting, Diarrhea, Melena, Hematochezia Genitourinary: Reports: Dysuria. Denies: Hematuria, Frequency Musculoskeletal: Reports: Extremity Pain. Denies: Back pain Skin: Denies: Rash, Wounds Neurological: Denies: Headache, Weakness, Numbness Physical Exam Vital Signs/Narrative: Vital Signs Temp Pulse Resp BP Pulse Ox 08/05/20 21:35 97.7 F L 88 18 133/78 H 96 Inital Vital Signs reviewed: Yes General: Well nourished, Well developed, Obese, No Acute Distress Head: Normocephalic, Atraumatic Eyes: Perrl, EOMI ENT: Moist mucous membranes, No rhinorrhea Neck: Supple, Nontender Cardiovascular: Regular rate, Regular rhythm, No murmurs Respiratory: No distress, CTA bilaterally, Chest nontender Abdomen: Soft, Nontender, Nondistended, Normal bowel sounds Back: Nontender, Normal Inspection Extremities: Nontender, No edema Skin: Normal color, No rash Neurological: Alert, Oriented x3, Cranial nerves II-XII grossly intact, Normal Strength, Normal Sensation Psychological: Normal affect, Normal Mood Diagnostic/Tx/Re-eval - Medical Decision Making Patient is laying back in the bed hands behind her head watching television. The exam is benign. When I tell her that her urine is negative she then tells me it is not her thigh it is her knee that is hurting. The knee appears normal ligaments are stable. I will recommend she take some Tylenol or Motrin and if she continues to have symptoms repeat examination in 24 hours. ED Disposition - Plan for ED Patient: Disposition: Home or Assisted Living Diagnosis: Abdominal pain, Left knee pain, Dysuria Instructions: ED Abdominal Pain Unkn Cause Fem Additional Instructions: If continued symptoms please follow-up with primary care.
== END 2020-08-05 23:18 | disposition home or self-care (01) ==
PROVIDERS: Emergency Provider Emergency Medicine; PCP Pediatrics
DX: R10.9 Unspecified abdominal pain (principal); M25.562 Pain in left knee; M79.652 Pain in left thigh; R30.0 Dysuria; E03.9 Hypothyroidism, unspecified; K21.9 Gastro-esophageal reflux disease without esophagitis; E66.9 Obesity, unspecified; Z79.899 Other long term (current) drug therapy
CPT/HCPCS: 81001; 99282

== ENCOUNTER 2020-08-07 15:10 | Emergency (ER) | payer MEDICAID, SELFPAY ==
[2020-08-07 15:12] VITALS: BP 156/93; PULSE 81; RESP 16; TEMP 36.2; O2SAT 96; BMI 41.0
--- NOTE | 2020-08-07 15:20 | CM.ED ---
SOCIAL WORK Active ED Care Plan Reviewed ED Care Plan with Dr. Joyce. Dr. Joyce to discuss with patient. Nicole Rosen, PATTERN MARKING SUPERVISOR, PHOTOGRAPHY COORDINATOR
--- NOTE | 2020-08-07 16:17 | ED.VIS.GEN ---
History of Present Illness Chief Complaint: Dizziness Informant: Patient, Family Narrative: Patient is well-known to the emergency department and has a care plan. She tells me that she has had intermittent lightheadedness since waking this morning. One point she went outside to aydin a rabbit slipped in the mud and now has pain from behind her knee to her medial calf. Apparently she was not lightheaded while trying to aydin a rabbit in the mud. Past Medical History - Allergies and Home Meds Allergies/Adverse Reactions: Allergies amoxicillin [From Augmentin] Allergy (Verified 08/07/20 15:14) Other amoxicillin trihydrate [From Augmentin] Allergy (Verified 08/07/20 15:14) Other azithromycin Allergy (Verified 08/07/20 15:14) Other clavulanic acid [From Augmentin] Allergy (Verified 08/07/20 15:14) Other erythromycin base [From E-Mycin] Allergy (Verified 08/07/20 15:14) Unknown potassium clavulanate [From Augmentin] Allergy (Verified 08/07/20 15:14) Other ibuprofen Adverse Reaction (Verified 08/07/20 15:14) Nausea Primary Care Physician: Pan Contreras MD [Primary Care Provider] - As soon as possible Prior records reviewed: Yes Surgical History: no surgical history Lives: With Family Smoking Status: Never smoker Drugs: None Review of Systems General: Reports: - - Light headed sensation. Denies: Chills, Fever, Sweats Eyes: Denies: Visual changes - bilaterally, Diplopia ENT: Denies: Rhinorrhea, Sore throat Cardiovascular: Denies: Chest pain, Palpitations Respiratory: Denies: Dyspnea, Cough, Dyspnea on exertion Gastrointestinal: Denies: Abdominal pain, Nausea, Vomiting, Diarrhea, Melena, Hematochezia Genitourinary: Denies: Dysuria, Hematuria, Frequency Musculoskeletal: Reports: Extremity Pain. Denies: Back pain Skin: Denies: Rash, Wounds Neurological: Denies: Headache, Weakness, Numbness Physical Exam Vital Signs/Narrative: Vital Signs Temp Pulse Resp BP Pulse Ox 08/07/20 15:12 97.1 F L 81 16 156/93 H 96 Inital Vital Signs reviewed: Yes General: Well nourished, Well developed, Obese, No Acute Distress Head: Normocephalic, Atraumatic Eyes: Perrl, EOMI ENT: Moist mucous membranes, No rhinorrhea Neck: Supple, Nontender Cardiovascular: Regular rate, Regular rhythm, No murmurs Respiratory: No distress, CTA bilaterally, Chest nontender Abdomen: Soft, Nontender, Nondistended, Normal bowel sounds Back: Nontender, Normal Inspection Extremities: Nontender, No edema Skin: Normal color, No rash Neurological: Alert, Oriented x3, Cranial nerves II-XII grossly intact, Normal Strength, Normal Sensation Psychological: Normal affect, Normal Mood Diagnostic/Tx/Re-eval - Medical Decision Making I explained to Aide that if anything she has more of a muscular strain of the leg. She notes various aches and pains throughout her body wonders if she is stoved her finger. Her exam is benign. She ambulates to the bathroom. I explained to Aide that everybody has aches and pains from time to time and minor injuries. We have to work through them, rest when we can. I explained to her that this is her 19th visit this year. It is her third visit in 5 days. ED Disposition - Plan for ED Patient: Disposition: Home or Assisted Living Diagnosis: Lightheaded, Muscle strain of lower leg Instructions: ED Dizziness UKO, ED Strain Muscle Ext Referrals: Pan Contreras MD [Primary Care Provider] - As soon as possible
[2020-08-07 16:53] VITALS: PULSE 88; RESP 17; O2SAT 97
== END 2020-08-07 16:54 | disposition home or self-care (01) ==
PROVIDERS: Emergency Provider Emergency Medicine; PCP Pediatrics
DX: S86.919A Strain of unspecified muscle(s) and tendon(s) at lower leg level, unspecified leg, initial encounter (principal); X58.XXXA Exposure to other specified factors, initial encounter; Y93.02 Activity, running; Y92.9 Unspecified place or not applicable; Y99.9 Unspecified external cause status; E66.9 Obesity, unspecified; Z79.899 Other long term (current) drug therapy
CPT/HCPCS: 99282

== ENCOUNTER 2020-08-12 21:24 | Emergency (ER) | payer MEDICAID, SELFPAY ==
[2020-08-12 21:25] VITALS: BP 156/94; PULSE 85; RESP 16; TEMP 35.8; O2SAT 95; BMI 43.2
--- NOTE | 2020-08-12 21:53 | RAD_ITS ---
HISTORY: FALL TODAY. PAIN ALL OVER WRIST COMPARISON: Previous x-rays of the left hand from May 27, 2020 FINDINGS: # of images incl. paperwork: 3 XR Wrist Min 3 Views : Left wrist Bowing to the distal ulna with lateral displacement of the distal ulna at the distal radial ulnar joint with the older styloid abutting adjacent to the lunate due to this malalignment is chronic and not due to an acute fracture. No fracture No osseous or soft tissue abnormality. The carpal bones have a normal appearance. The distal radius and ulna are unremarkable. No evidence of radiopaque foreign body. RAD/Wrist min 3 Views IMPRESSION: Bowing laterally to the distal ulna with the ulnar styloid having a pseudoarticulation with the lunate due to this malalignment is chronic.. at 2203 Reported and signed by: Samuel Gillespie MD Electronically Signed: Samuel Gillespie MD at 22:02 EST Tel , Service support ,
[2020-08-12] MEDS: Naproxen 500 MG Tablet PO (22:09)
--- NOTE | 2020-08-12 22:18 | ED.VISSUMM ---
- ER Visit Summary Date of Service: 08/12/20 Chief Complaint: Left wrist pain History of Present Illness: The patient is a [address] Contreras. She is right-hand dominant. She reports she has left wrist pain that began approximately a month ago. She denies any trauma. No fall, MVA, or change in activity. She states it is sharp pain is 10 of 10 with movement. She states is 100 relieved with rest, Tylenol, or a splint. She also reports she has not had an x-ray of this. Patient has an appointment to follow-up with a hand surgeon on August 19. Physical Examination: Vitals: Stable. Afebrile. General: Well-nourished and well-developed. Head: Normocephalic atraumatic. Neck: Supple, no lymphadenopathy. No JVD. Nontender. Cardiovascular: Regular rate and rhythm. No murmurs. Respiratory: No respiratory distress. Clear to auscultation bilaterally. Abdominal: Soft, nontender, nondistended, normal bowel sounds. No guarding, rebound, or peritoneal signs. Back: Nontender. Extremities: Moderate tenderness palpation is focal over the left ulnar styloid. There is no soft tissue swelling, discoloration, or contusion here. She has a 2+ radial pulse. She is neuro vas intact distal to this. Skin: Normal color, no rash. Neurologic: Alert and oriented ?3. Cranial nerves II through XII are intact. Normal strength and sensation. Psych: Normal affect. Test Results: Clinical Impression(s) from Imaging Studies Wrist X-Ray 08/12/20 21:53 IMPRESSION: Bowing laterally to the distal ulna with the ulnar styloid having a pseudoarticulation with the lunate due to this malalignment is chronic.. at 2203 Reported and signed by: Samuel Gillespie MD Electronically Signed: Samuel Gillespie MD at 22:02 EST Tel , Service support , Emergency Department Course and Treatment: Patient was treated with naproxen. She refused a splint. Treatment Plan: Patient will be discharged with naproxen. Instructed to follow-up with her hand surgeon as previously scheduled. Return to the emergency department for any worsening symptoms. Disposition: To home in improved and stable condition. Impression: 1. Left wrist pain, chronic. This note was generated with [employer] dictation software. It may contain incorrect words, spelling, and punctuation that were not noted in review of the chart prior to signing ED Disposition - Plan for ED Patient: Disposition: Acute [facility] Instructions: ED Sprain Wrist Prescriptions: Naproxen [Naprosyn] 500 mg PO BID #14 tab Prescription Printed Referrals: Doctor,Your [STAFF PHYSICIAN] - Keep Alejandro appointment
== END 2020-08-12 22:26 | disposition short-term general hospital (02) ==
PROVIDERS: Emergency Provider Emergency Medicine; PCP Pediatrics
DX: M25.532 Pain in left wrist (principal); G89.29 Other chronic pain; F90.9 Attention-deficit hyperactivity disorder, unspecified type; Z79.899 Other long term (current) drug therapy
CPT/HCPCS: 73110; 99282

== ENCOUNTER 2020-08-20 18:43 | Emergency (ER) | payer MEDICAID, SELFPAY ==
[2020-08-20 18:44] VITALS: BP 153/72; PULSE 110; RESP 18; TEMP 36.5; O2SAT 97; BMI 42.2
--- NOTE | 2020-08-20 19:09 | ED.VIS.GEN ---
History of Present Illness Chief Complaint: Upper Extremity Injury Informant: Patient Onset: Today Current Severity: Mild Maximum Severity: Moderate Narrative: Patient presents with pain to her left wrist area after falling off her bed. She is right-hand dominant. She denies any other injury. - Past Medical History (1) GERD (gastroesophageal reflux disease) Status: Chronic (2) Hypothyroid Status: Chronic Past Medical History - Allergies and Home Meds Allergies/Adverse Reactions: Allergies amoxicillin [From Augmentin] Allergy (Verified 08/20/20 18:44) Other amoxicillin trihydrate [From Augmentin] Allergy (Verified 08/20/20 18:44) Other azithromycin Allergy (Verified 08/20/20 18:44) Other clavulanic acid [From Augmentin] Allergy (Verified 08/20/20 18:44) Other erythromycin base [From E-Mycin] Allergy (Verified 08/20/20 18:44) Unknown potassium clavulanate [From Augmentin] Allergy (Verified 08/20/20 18:44) Other ibuprofen Adverse Reaction (Verified 08/20/20 18:44) Nausea Primary Care Physician: Pan Cnotreras MD [Primary Care Provider] - Surgical History: no surgical history Lives: With Family Smoking Status: Never smoker Review of Systems General: Denies: Chills, Fever Eyes: Denies: Visual changes - bilaterally ENT: Denies: Bilateral ear pain Cardiovascular: Denies: Chest pain Respiratory: Denies: Dyspnea, Cough Gastrointestinal: Denies: Abdominal pain Musculoskeletal: Reports: Extremity Pain Neurological: Denies: Headache, Parasthesia Hematologic: Denies: Easy bruising, Easy bleeding Allergy: Denies: Uticaria Physical Exam Vital Signs/Narrative: Vital Signs Temp Pulse Resp BP Pulse Ox 08/20/20 18:44 97.7 F L 110 H 18 153/72 H 97 Inital Vital Signs reviewed: Yes General: Well nourished, Well developed Head: Normocephalic ENT: Moist mucous membranes Cardiovascular: Regular rate, Regular rhythm Respiratory: No distress Extremities: - - Tenderness around the left wrist, no obvious deformity. No tenderness over the proximal forearm, elbow, or upper arm. No tenderness over the hand itself. Neurological: Alert, Oriented x3 Psychological: Normal affect Diagnostic/Tx/Re-eval Impressions Wrist X-Ray 08/20/20 19:12 IMPRESSION: Stable exam. 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 No acute fracture. Electronically Signed: Michael Godinez MD ([place]) at 19:43 EST , Service support , 08/20/20 19:12 Wrist min 3 Views [RAD] Stat - Medical Decision Making Test results discussed with patient at bedside. Gene wrap is applied. She can use Tylenol at home for pain. ED Disposition - Plan for ED Patient: Disposition: Home or Assisted Living Diagnosis: Wrist contusion Instructions: ED Sprain Wrist Referrals: Pan Contreras MD [Primary Care Provider] - As Needed
--- NOTE | 2020-08-20 19:12 | RAD_ITS ---
STUDY: X-RAY - LEFT WRIST REASON FOR EXAM: Female, 19 years old. fell off bed; pain along ulnar side of wrist TECHNIQUE: 3 view(s) of the wrist were obtained. COMPARISON: 08/12/2020 FINDINGS: Persistent lateral bowing of the distal ulna, stable; stable chronic malalignment of the distal radial-ulnar articulation. Normal radiocarpal articulation. Normal distal radioulnar articulation. Normal carpal bones. Normal carpal articulations. Normal carpometacarpal articulation of the thumb. Normal second through fifth carpometacarpal articulations. Normal visualized metacarpal bones. The soft tissue structures are unremarkable. RAD/Wrist min 3 Views IMPRESSION: Stable exam. 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 No acute fracture. Electronically Signed: Michael Godinez MD ([place]) at 19:43 EST , Service support ,
== END 2020-08-20 20:16 | disposition home or self-care (01) ==
PROVIDERS: Emergency Provider Emergency Medicine; PCP Pediatrics
DX: S60.212A Contusion of left wrist, initial encounter (principal); W06.XXXA Fall from bed, initial encounter; Y93.9 Activity, unspecified; Y92.9 Unspecified place or not applicable; Y99.9 Unspecified external cause status; E03.9 Hypothyroidism, unspecified; K21.9 Gastro-esophageal reflux disease without esophagitis; Z79.899 Other long term (current) drug therapy
CPT/HCPCS: 73110; 99282

== ENCOUNTER 2020-09-17 19:47 | Emergency (ER) | payer MEDICAID, SELFPAY ==
[2020-09-17 19:48] VITALS: BP 153/101; PULSE 95; RESP 16; TEMP 36.4; O2SAT 98; BMI 44.9
--- NOTE | 2020-09-17 20:04 | ED.DCSUM_ITS ---
History of Present Illness Chief Complaint: Upper Extremity Injury Informant: Patient Narrative: Patient is a 19-year-old female with a past medical history of hypothyroidism who presents to the emerge department after injury to her left wrist. She states that her she was untied and she slipped on black ice. She landed on her hand. She denies any hand pain but has been having wrist pain. She is right- handed at baseline. She states that she has been taking Tylenol and putting ice over the area which does help a little bit. She feels like she lost some sensation in her left pinky finger. She denies hitting her head or losing consciousness. She did not injure her neck. No chest pain or shortness of breath. No abdominal pain or nausea/vomiting. Past Medical History - Allergies and Home Meds Allergies/Adverse Reactions: Allergies amoxicillin [From Augmentin] Allergy (Verified 09/17/20 19:50) Other amoxicillin trihydrate [From Augmentin] Allergy (Verified 09/17/20 19:50) Other azithromycin Allergy (Verified 09/17/20 19:50) Other clavulanic acid [From Augmentin] Allergy (Verified 09/17/20 19:50) Other erythromycin base [From E-Mycin] Allergy (Verified 09/17/20 19:50) Unknown potassium clavulanate [From Augmentin] Allergy (Verified 09/17/20 19:50) Other ibuprofen Adverse Reaction (Verified 09/17/20 19:50) Nausea Primary Care Physician: Pan Contreras MD [Primary Care Provider] - Prior records reviewed: Yes Surgical History: no surgical history Smoking Status: Never smoker Review of Systems All systems negative except as indicated General: Denies: Chills, Fever, Sweats Eyes: Denies: Visual changes - bilaterally, Diplopia ENT: Denies: Rhinorrhea, Sore throat Cardiovascular: Denies: Chest pain, Palpitations Respiratory: Denies: Dyspnea, Cough, Dyspnea on exertion Gastrointestinal: Denies: Abdominal pain, Nausea, Vomiting, Diarrhea Musculoskeletal: Reports: Extremity Pain. Denies: Neck pain, Back pain, Swelling Skin: Denies: Rash, Wounds Neurological: Reports: Numbness - Left pinky finger. Denies: Headache, Weakness Physical Exam Vital Signs/Narrative: Vital Signs Temp Pulse Resp BP Pulse Ox 09/17/20 19:48 97.5 F L 95 16 153/101 H 98 Inital Vital Signs reviewed: Yes General: Well nourished, Well developed, No Acute Distress Head: Normocephalic, Atraumatic Eyes: Perrl, EOMI ENT: Moist mucous membranes, No rhinorrhea Neck: Supple, Nontender Cardiovascular: Regular rate, Regular rhythm, No murmurs Respiratory: No distress, CTA bilaterally, Chest nontender Abdomen: Soft, Nontender, Nondistended, Normal bowel sounds Back: Nontender, Normal Inspection Extremities: No edema, Tenderness - Tenderness along distal radius and ulna. No snuffbox tenderness. Good technical communicator strength. Good capillary refill. 2+ radial pulse. No obvious deformity. Skin: Normal color, No rash Neurological: Alert, Normal Strength, Normal Sensation Psychological: Normal affect, Normal Mood Diagnostic/Tx/Re-eval X-ray of the left wrist interpreted by myself. No obvious fracture or dislocation of the radius/ulna distally. No obvious carpal or finger fracture/dislocation. Agree with radiologist interpretation. - Medical Decision Making Patient presents emerge department after a fall injuring her left wrist yesterday. Will check with an x-ray at this time. X-ray did not show any obvious acute fracture or dislocation. Will discharge home in stable condition. She is given a wrist splint. Recommend rice. Use Tylenol and ibuprofen back and forth. She understands and is agreeable this plan. We will have her follow-up with her PCP. All questions were answered. ED Disposition - Plan for ED Patient: Disposition: Home or Assisted Living Diagnosis: Wrist sprain Instructions: ED Wrist Sprain Referrals: Pan Contreras MD [Primary Care Provider] - 1 Week if not improving
--- NOTE | 2020-09-17 20:20 | RAD_ITS ---
STUDY: X-RAY - LEFT WRIST REASON FOR EXAM: Female, 19 years old. Pain. Trauma. TECHNIQUE: 3 view(s) of the wrist were obtained. COMPARISON: None. FINDINGS: There is no evidence of fracture or dislocation. There are no significant degenerative changes. There are no radiodense foreign bodies. RAD/Wrist min 3 Views IMPRESSION: No fracture or dislocation. Electronically Signed: Néstor Zamora, at 20:49 EST Tel , Service support ,
[2020-09-17 21:20] VITALS: RESP 16
== END 2020-09-17 21:27 | disposition home or self-care (01) ==
PROVIDERS: Emergency Provider Emergency Medicine; PCP Pediatrics
DX: S63.502A Unspecified sprain of left wrist, initial encounter (principal); W00.0XXA Fall on same level due to ice and snow, initial encounter; Y93.9 Activity, unspecified; Y92.9 Unspecified place or not applicable; Y99.9 Unspecified external cause status; E03.9 Hypothyroidism, unspecified; Z79.3 Long term (current) use of hormonal contraceptives; Z79.890 Hormone replacement therapy
CPT/HCPCS: 73110; 99283

== ENCOUNTER 2020-09-22 17:22 | Emergency (ER) | payer MEDICAID, SELFPAY ==
[2020-09-22 17:23] VITALS: BP 152/101; PULSE 140; RESP 17; TEMP 37.4; O2SAT 96; BMI 41.8
[2020-09-22] MEDS: 0.9% Normal Saline 1,000 ML 1000 ML IV (17:48)
[2020-09-22] MEDS: Ketorolac 15 MG/ML Vial IV (17:49)
[2020-09-22] MEDS: Ondansetron 4 MG/2 ML Vial IV (17:49)
[2020-09-22 18:11] LABS: Internal QC Validated? YES +Cl - CLEAR BKGD; Pregnancy, Serum, hCG Quali. NEGATIVE Negative
[2020-09-22 18:15] LABS: Anion Gap 7 (5-15); BUN 9 mg/dL (7-18); BUN/Creat Ratio 11.7 RATIO (10-20); Chloride 105 mmol/L (98-107); Creatinine, Serum 0.77 mg/dL (0.55-1.02); EST Glomerular Filtration Rate 102 mL/min (>60); Est Glom Filt Rate - Afr Amer 124 mL/min (>60); Estimated Creatinine Clearance 114.28 ml/min; Glucose 104 mg/dL (74-106); Potassium 3.5 mmol/L (3.5-5.1); Sodium Level 137 mmol/L (136-145)
--- NOTE | 2020-09-22 18:24 | ED.DCSUM_ITS ---
- ER Visit Summary Date of Service: 09/22/20 Chief Complaint: Vomiting History of Present Illness: The patient is a [address] Contreras. Patient has been nausea and vomited 3 times in the past 14 hours. No blood in her emesis. No diarrhea. Her last bowel was today. Normal hematochezia. No dysuria or frequency. No abdominal pain. Mother reports patient's temperature was 102 degrees at home. Patient complains of a headache is 4-10 in severity. Her review of systems is otherwise negative. Physical Examination: Vitals: 99.4, 152/101, 140, 17, 96% room air which is not hypoxic. General: Well-nourished and well-developed. Head: Normocephalic atraumatic. Neck: Supple, no lymphadenopathy. No JVD. Nontender. Cardiovascular: Tachycardic regular rhythm. No murmurs. Respiratory: No respiratory distress. Clear to auscultation bilaterally. Abdominal: Soft, nontender, nondistended, normal bowel sounds. No guarding, rebound, or peritoneal signs. Back: Nontender. Extremities: Nontender, no edema. Skin: Normal color, no rash. Neurologic: Alert and oriented ?3. Cranial nerves II through XII are intact. Normal strength and sensation. Psych: Normal affect. Test Results: Chem-7 is normal. test is negative. Urinalysis shows leukocytes, nitrites, blood, 50-100 white blood cells, 2+ bacteria. CBC shows a white count of 11.9 with 74 segmented neutrophils and 17 lymphocytes. Lactic acid is 1.1. Emergency Department Course and Treatment: Patient was given Toradol and Zofran IV. She is resting comfortably. She has not vomited while here. Urine was sent for culture. The patient is given a dose of Rocephin IV. Treatment Plan: Patient be discharged with Zofran and Keflex. Instructed to push fluids. Follow-up her primary care physician 1 to 2 days if not improving. Return to the emergency department for any worsening symptoms. Disposition: To home in improved and stable condition. Impression: 1. Vomiting. 2. Urinary tract infection. 3. Sinus tachycardia. This note was generated with [employer] software. It may contain incorrect words, spelling, and punctuation that were not noted in review of the chart prior to signing ED Disposition - Plan for ED Patient: Instructions: ED Vomiting (Adult) Prescriptions: Cephalexin [Keflex] 500 mg PO Q12 #14 cap Ondansetron [Zofran Odt] 4 mg PO Q8H PRN PRN #10 tab PRN Reason: Nausea Prescription Printed Referrals: Pan Contreras MD [Primary Care Provider] - 1-2 Days if not improving
[2020-09-22 18:54] LABS: Mucous, Urine 0 SEEN /hpf (<or=2+)
[2020-09-22 18:59] LABS: Color, Urine Yellow (Yellow); Glucose, Dipstick Normal (Normal); Ketone-Dipstick 5 mg/dl (Negative); Leukocyte Esterase-Dipstick 500 /ul (Negative); Nitrite-Dipstick Positive (Negative); Occult Blood-Urine 150 /ul (Negative); Protein-Dipstick 100 mg/dl (Negative); Specific Gravity, Urine 1.015 (1.002-1.030); Urine Bilirubin Dipstick Negative (Negative); Urine Clarity Cloudy (Clear); Urine Urobilinogen 1 mg/dl (Normal)
[2020-09-22 19:04] LABS: White Blood Cells 50-100 SEEN /hpf (0-5)
[2020-09-22 19:05] LABS: Bacteria 2+ /hpf (None Seen); Squamous Epithelial Cells - UA 0-5 SEEN /hpf (5-10)
[2020-09-22 19:09] LABS: Red Blood Cells-Urine 0-5 SEEN /hpf (0-5)
[2020-09-22] MEDS: Ceftriaxone 1 GM/50 ML BAG IV (19:51)
[2020-09-22 20:16] LABS: Absolute Lymphocyte Count 1.98 X10^3/uL (0.83-4.51); Absolute Neutrophil Count 8.8 X10^3/uL (2.0-7.7); Basophil# 0.05 X10^3/uL; Basophil% 0.4 % (0-1); Eosinophil# 0.05 X10^3/uL; Eosinophils% 0.4 % (0-5); Hematocrit 43.4 % (37-47); Hemoglobin 13.6 g/dL (12.0-15.0); Lymphocyte # 1.98 X10^3/ul (4.0); Lymphocyte % 16.7 % (19-41); Mean Corp Hgb Conc 31.3 g/dL (32-36); Mean Corpuscular Hgb 28.6 pg (27.0-32.0); Mean Corpuscular Volume 91.2 fL (81-99); Mean Platelet Vol. 10.4 fl (6.2-12.0); Monocyte# 0.94 X10^3/uL; Monocyte% 7.9 % (0-10); NRBC Flagged by Analyzer 0 % (0-5); Neutrophil # 8.83 X10^3/uL (2.7-7.7); Neutrophil % 74.3 % (47-70); Platelet Count 282 K/mm3 (150-450); RBC Distribution Width CV 13.3 % (11.6-14.6); RBC Distribution Width SD 45.1 fl (35.1-43.9); Red Blood Count 4.76 M/mm3 (4.2-5.4); White Blood Count 11.9 K/mm3 (4.4-11.0)
[2020-09-22 20:33] LABS: Lactic Acid 1.1 mmol/L (0.4-1.9)
[2020-09-22 20:46] VITALS: BP 148/91; PULSE 102; RESP 18; TEMP 37.2; O2SAT 97
== END 2020-09-22 20:46 | disposition home or self-care (01) ==
PROVIDERS: Emergency Provider Emergency Medicine; PCP Pediatrics
DX: R11.2 Nausea with vomiting, unspecified (principal); N39.0 Urinary tract infection, site not specified; R00.0 Tachycardia, unspecified; R51.9 Headache, unspecified; J45.909 Unspecified asthma, uncomplicated; Z79.899 Other long term (current) drug therapy
CPT/HCPCS: 80048; 81001; 83605; 84703; 85025; 87077; 87086; 87088; 87186; 96361; 96365; 96375; 99282; J7030; J2405

== ENCOUNTER 2020-10-07 07:35 | Emergency (ER) | payer MEDICAID, SELFPAY ==
[2020-10-07 07:37] VITALS: BP 125/81; PULSE 99; RESP 17; TEMP 36.2; O2SAT 95; BMI 41.1
--- NOTE | 2020-10-07 07:49 | ED.DCSUM_ITS ---
History of Present Illness Chief Complaint: Nausea/Vomiting Informant: Patient, Family Narrative: 19-year-old female presents with her grandmother with concern for nausea and vomiting. States that she had 2 episodes of nausea and vomiting last night. The patient has been seen here for this complaint many times before in the past. Denies any vaginal bleeding or discharge. States that she has mild abdominal cramping. Denies any fever, chills, cough. Past Medical History - Allergies and Home Meds Allergies/Adverse Reactions: Allergies amoxicillin [From Augmentin] Allergy (Verified 10/07/20 07:36) Other amoxicillin trihydrate [From Augmentin] Allergy (Verified 10/07/20 07:36) Other azithromycin Allergy (Verified 10/07/20 07:36) Other clavulanic acid [From Augmentin] Allergy (Verified 10/07/20 07:36) Other erythromycin base [From E-Mycin] Allergy (Verified 10/07/20 07:36) Unknown potassium clavulanate [From Augmentin] Allergy (Verified 10/07/20 07:36) Other ibuprofen Adverse Reaction (Verified 10/07/20 07:36) Nausea Primary Care Physician: Pan Contreras MD [Primary Care Provider] - Prior records reviewed: Yes Past Medical History: None Surgical History: no surgical history Lives: With Family Smoking Status: Never smoker Alcohol: None Drugs: None Review of Systems General: Denies: Chills, Fever, Sweats Eyes: Denies: Visual changes - bilaterally, Diplopia ENT: Denies: Rhinorrhea, Sore throat Cardiovascular: Denies: Chest pain, Palpitations Respiratory: Denies: Dyspnea, Cough, Dyspnea on exertion Gastrointestinal: Reports: Nausea, Vomiting. Denies: Abdominal pain, Diarrhea, Melena, Hematochezia Genitourinary: Denies: Dysuria, Hematuria, Frequency Musculoskeletal: Denies: Back pain, Extremity Pain Skin: Denies: Rash, Wounds Neurological: Denies: Headache, Weakness, Numbness Physical Exam Vital Signs/Narrative: Vital Signs Temp Pulse Resp BP Pulse Ox 10/07/20 07:37 97.1 F L 99 17 125/81 H 95 Inital Vital Signs reviewed: Yes General: Well nourished, Well developed, No Acute Distress Head: Normocephalic, Atraumatic Eyes: Perrl, EOMI ENT: Moist mucous membranes, No rhinorrhea Neck: Supple, Nontender Cardiovascular: Regular rate, Regular rhythm, No murmurs Respiratory: No distress, CTA bilaterally, Chest nontender Abdomen: Soft, Nontender, Nondistended, Normal bowel sounds Back: Nontender, Normal Inspection Extremities: Nontender, No edema Skin: Normal color, No rash Neurological: Alert, Oriented x3, Cranial nerves II-XII grossly intact, Normal Strength, Normal Sensation Psychological: Normal affect, Normal Mood Diagnostic/Tx/Re-eval Laboratory Data 10/07/20 08:00 Urine Color Yellow Urine Clarity Sl. Cloudy Urine pH 6.0 Ur Specific Chrisney 1.025 Urine Protein 30 H Urine Glucose (UA) 50 H Urine Ketones Negative Urine Occult Blood 50 H Urine Nitrite Negative Urine Bilirubin 1 H Urine Urobilinogen 4 H Ur Leukocyte Esterase 25 H Urine RBC 0 SEEN Urine WBC 0 SEEN Ur Squamous Epith Cells 0 SEEN Urine Bacteria 0 SEEN Urine Mucus 0 SEEN Urine Test Negative - Medical Decision Making Patient appears well and nontoxic. Vital signs within normal limits. Not actively vomiting. Benign abdominal exam. negative with resolution of her UTI. Patient will be given Zofran for home and gastrointestinal follow- up. Asked to return for new or worsening symptoms. Grandmother and patient agreeable and discharged home in stable condition. Impression: 1. Nausea and vomiting 2. Abdominal cramping ED Disposition - Plan for ED Patient: Disposition: Home or Assisted Living Instructions: ED Vomiting (Adult) Prescriptions: Ondansetron [Zofran Odt] 4 mg PO Q8H PRN PRN #10 tab PRN Reason: Nausea Prescription Printed Referrals: Pan Contreras MD [Primary Care Provider] - 1 Day Fidencio Roman MD [NON-STAFF] - 5-7 Days
[2020-10-07] MEDS: Ondansetron ODT 4 MG Tablet PO (08:01)
[2020-10-07 08:04] LABS: Mucous, Urine 0 SEEN /hpf (<or=2+)
[2020-10-07 08:08] LABS: Color, Urine Yellow (Yellow); Glucose, Dipstick 50 mg/dl (Normal); Ketone-Dipstick Negative (Negative); Leukocyte Esterase-Dipstick 25 /ul (Negative); Nitrite-Dipstick Negative (Negative); Occult Blood-Urine 50 /ul (Negative); Protein-Dipstick 30 mg/dl (Negative); Specific Gravity, Urine 1.025 (1.002-1.030); Urine Clarity Sl. Cloudy (Clear); Urine Urobilinogen 4 mg/dl (Normal)
[2020-10-07 08:10] LABS: Internal QC Validated? YES +Cl - CLEAR BKGD; Pregnancy, Urine Negative Negative
[2020-10-07 08:13] LABS: Urine Bilirubin Dipstick 1 mg/dL (Negative)
[2020-10-07 08:18] LABS: Red Blood Cells-Urine 0-5 SEEN /hpf (0-5); Squamous Epithelial Cells - UA 5-10 SEEN /hpf (5-10); White Blood Cells 5-10 SEEN /hpf (0-5)
[2020-10-07 08:19] LABS: Bacteria 1+ /hpf (None Seen)
--- NOTE | 2020-10-07 08:24 | ED.RN ---
Prabha (grandmother) is physically standing over the pt as she is lying in the bed in the room. When asked to come to the bathroom to obtains a urine sample the pt had to push the grandmother out of the way so she could get up. Pt was ambulating to the bathroom and grandmother was following close behind. Explained pt would be right back but grandmother states she has to go with her because she might need help. Pt did not show any signs of distress or need for assistance. Went in to give pt her discharge instructions. Prabha stated the pt was c/o abd pain at this time. Pt is resting in the bed and keeps laughing at what the grandmother is saying. again went over the discharge instructions and encouraged them to f/u with PCP and GI as ordered by the dr. Prabha then requested to talk to Dr Rosas again. Physician went in and explained why he felt the pt did not need further examination. Pt then told the Dr that she thinks her stomach hurts because she is getting ready to start her period. Pt and Prabha were told they were good to leave. Prabha then put call light on again and requested a school note for the pt. one was given and encouraged pt to try Pamprin or Midol for her cramps. Pt then ambulated out of Ed without difficulty or any sign of distress.
== END 2020-10-07 08:47 | disposition home or self-care (01) ==
PROVIDERS: Emergency Provider Emergency Medicine; PCP Pediatrics
DX: R11.2 Nausea with vomiting, unspecified (principal); R10.9 Unspecified abdominal pain; Z79.899 Other long term (current) drug therapy
CPT/HCPCS: 81001; 81025; 99281; 99283

== ENCOUNTER 2020-11-24 21:35 | Emergency (ER) | payer MEDICAID, SELFPAY ==
[2020-11-24 21:37] VITALS: BP 138/96; PULSE 98; RESP 18; TEMP 36.1; O2SAT 95; BMI 41.8
[2020-11-24 22:22] LABS: Bacteria 0 SEEN /hpf (None Seen); Mucous, Urine 0 SEEN /hpf (<or=2+)
[2020-11-24 22:25] LABS: Color, Urine Yellow (Yellow); Glucose, Dipstick Normal (Normal); Ketone-Dipstick 5 mg/dl (Negative); Leukocyte Esterase-Dipstick 25 /ul (Negative); Nitrite-Dipstick Negative (Negative); Occult Blood-Urine 50 /ul (Negative); Protein-Dipstick 15 mg/dl (Negative); Specific Gravity, Urine 1.025 (1.002-1.030); Urine Bilirubin Dipstick Negative (Negative); Urine Clarity Sl. Cloudy (Clear); Urine Urobilinogen Normal (Normal)
[2020-11-24] MEDS: Acetaminophen 500 MG Tablet 1000 MG PO (22:30)
[2020-11-24] MEDS: Phenazopyridine 95 MG Tablet 190 MG PO (22:31)
[2020-11-24 22:35] LABS: Squamous Epithelial Cells - UA 0-5 SEEN /hpf (5-10)
--- NOTE | 2020-11-24 22:35 | ED.VISSUMM ---
- ER Visit Summary Date of Service: 11/24/20 Chief Complaint: Dysuria History of Present Illness: The patient is a [address] Contreras. She reports that she has dysuria and frequency that began yesterday. Similar to when she had a UTI in the past. She denies any fever, chills, nausea, vomiting, or back pain. Patient does complain of a headache that is 3 out of 10 in severity. She has a history of similar headaches. Last menstrual period was proximately 3 weeks ago. She denies any vaginal bleeding or discharge. Physical Examination: Vitals: Stable. Afebrile. General: Well-nourished and well-developed. Head: Normocephalic atraumatic. Neck: Supple, no lymphadenopathy. No JVD. Nontender. Cardiovascular: Regular rate and rhythm. No murmurs. Respiratory: No respiratory distress. Clear to auscultation bilaterally. Abdominal: Soft, nontender, nondistended, normal bowel sounds. No guarding, rebound, or peritoneal signs. Back: Nontender. Extremities: Nontender, no edema. Skin: Normal color, no rash. Neurologic: Alert and oriented ?3. Cranial nerves II through XII are intact. Normal strength and sensation. Psych: Normal affect. Test Results: Urinalysis shows leukocytes, blood, ketones. test is negative. Emergency Department Course and Treatment: Patient was treated with Tylenol and Azo p.o. She is resting comfortably. Treatment Plan: At this time I do not have an explanation for the patient's dysuria and frequency. She will be discharged with Azo for symptomatic management. Use Tylenol and/or ibuprofen for pain. Instructed follow-up Dr. Contreras in 1 to 2 days if not improving. Return to the emergency department for any worsening symptoms. Disposition: To home in improved and stable condition. Impression: 1. Dysuria, uncertain cause. This note was generated with [employer] dictation software. It may contain incorrect words, spelling, and punctuation that were not noted in review of the chart prior to signing ED Disposition - Plan for ED Patient: Instructions: ED Dysuria, Uncertain Cause (Adult) Prescriptions: Phenazopyridine HCl [Pyridium] 200 mg PO BID PRN PRN #10 tablet PRN Reason: Pain Referrals: Pan Contreras MD [Primary Care Provider] - 1-2 Days if not improving
[2020-11-24 22:36] LABS: Internal QC Validated? YES +Cl - CLEAR BKGD; Pregnancy, Urine Negative Negative; Red Blood Cells-Urine 0-5 SEEN /hpf (0-5); White Blood Cells 0-5 SEEN /hpf (0-5)
== END 2020-11-24 22:46 | disposition home or self-care (01) ==
LOC: ED 22:44
PROVIDERS: Emergency Provider Emergency Medicine; PCP Pediatrics
DX: R30.0 Dysuria (principal); R35.0 Frequency of micturition; R51.9 Headache, unspecified; Z79.890 Hormone replacement therapy; Z79.899 Other long term (current) drug therapy; Z87.440 Personal history of urinary (tract) infections
CPT/HCPCS: 81001; 81025; 99283

== ENCOUNTER 2020-11-30 22:06 | Emergency (ER) | payer MEDICAID, SELFPAY ==
[2020-11-30 22:07] VITALS: BP 162/124; PULSE 120; RESP 15; TEMP 36.2; O2SAT 95; BMI 37.9
--- NOTE | 2020-11-30 22:35 | RAD_ITS ---
EXAM: XR LEFT CLAVICLE COMPLETE, 2 OR MORE VIEWS : 2000 CLINICAL INDICATION: pain, injury TECHNIQUE: Frontal and lordotic views of the left clavicle. This report was created using [employer] report tuul technology. COMPARISON: Previous imaging of the left clavicle is from August 02, 2020 FINDINGS: BONES/JOINTS: Unremarkable. No acute fracture. No subluxation. Normal alignment. Preservation of the joint space. No sclerotic or destructive changes observed. SOFT TISSUES: Unremarkable. No soft tissue swelling or gas. No radiopaque foreign body. RAD/Clavicle IMPRESSION: Negative left clavicle x-rays. at [id number] Reported and signed by: Samuel Gillespie MD Electronically Signed: Samuel Gillespie MD at 22:58 EST Tel , Service support ,
[2020-11-30] MEDS: Acetaminophen 325 MG Tablet 650 MG PO (22:47)
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
== END 2020-11-30 23:37 | disposition home or self-care (01) ==
PROVIDERS: Emergency Provider Emergency Medicine; PCP Pediatrics
DX: S46.812A Strain of other muscles, fascia and tendons at shoulder and upper arm level, left arm, initial encounter (principal); W22.8XXA Striking against or struck by other objects, initial encounter; Y93.9 Activity, unspecified; Y92.810 Car as the place of occurrence of the external cause; Y99.9 Unspecified external cause status; E03.9 Hypothyroidism, unspecified; K21.9 Gastro-esophageal reflux disease without esophagitis; E66.9 Obesity, unspecified; Z79.899 Other long term (current) drug therapy
CPT/HCPCS: 73000; 99283

== ENCOUNTER 2020-12-22 20:56 | Emergency (ER) | payer MEDICAID, SELFPAY ==
[2020-12-22 20:57] VITALS: BP 171/115; PULSE 92; RESP 16; TEMP 36.6; O2SAT 99; BMI 41.3
[2020-12-22] MEDS: Naproxen 500 MG Tablet PO (21:17)
--- NOTE | 2020-12-22 21:25 | RAD_ITS ---
STUDY: X-RAY - LEFT SHOULDER REASON FOR EXAM: Female, 20 years old. Injury/Pain TECHNIQUE: 4 view(s) of the shoulder. COMPARISON: None. FINDINGS: Normal glenohumeral articulation. Normal acromioclavicular joint. Normal acromion. Normal humeral head and visualized proximal humerus. The soft tissue structures are unremarkable. There is no demonstrated fracture. Normal visualized pulmonary apex. RAD/Shoulder min 2 Views IMPRESSION: Normal x-ray examination of the shoulder. Electronically Signed: Johnathon Cruz MD at 22:18 EDT , Service support ,
--- NOTE | 2020-12-22 21:52 | ED.VISSUMM ---
- ER Visit Summary Date of Service: 12/22/20 Chief Complaint: Left shoulder pain History of Present Illness: The patient is a [address] Contreras. She reports she has left shoulder pain began 3 days ago. Is a continuous sharp pain is 10-10 severity. Is worsened by movement and relieved by Tylenol. She denies any trauma. No fall, MVA, or change in activity. She denies any paresthesias distally. Physical Examination: Vitals: Stable. Afebrile. General: Well-nourished and well-developed. Head: Normocephalic atraumatic. Neck: Supple, no lymphadenopathy. No JVD. Nontender. Cardiovascular: Regular rate and rhythm. No murmurs. Respiratory: No respiratory distress. Clear to auscultation bilaterally. Abdominal: Soft, nontender, nondistended, normal bowel sounds. No guarding, rebound, or peritoneal signs. Back: Nontender. Extremities: Mild tenderness palpation over the left clavicle. Minimal pain over the proximal humerus. There is no overlying erythema or warmth to suggest a septic joint. She has no pain with short arc movements.. Skin: Normal color, no rash. Neurologic: Alert and oriented ?3. Cranial nerves II through XII are intact. Normal strength and sensation. Psych: Normal affect. Test Results: Left shoulder x-ray shows no acute disease. There is no clavicle fracture. Emergency Department Course and Treatment: Patient was treated with naproxen. Treatment Plan: Patient be discharged instructions use naproxen for pain. She is placed in a sling. Instructed to follow-up Dr. Contreras in a week if not improving. Disposition: To home in improved and stable condition. Impression: 1. Left shoulder pain. 2. ED care plan. This note was generated with [employer] software. It may contain incorrect words, spelling, and punctuation that were not noted in review of the chart prior to signing ED Disposition - Plan for ED Patient: Instructions: ED Shoulder Pain, Uncertain Cause Prescriptions: Naproxen [Naprosyn] 500 mg PO BID #14 tablet Referrals: Pan Contreras MD [Primary Care Provider] - 1 Week if not improving
[2020-12-22 21:59] VITALS: BP 162/78; PULSE 90; RESP 15; O2SAT 97
== END 2020-12-22 22:09 | disposition home or self-care (01) ==
LOC: ED 21:08
PROVIDERS: Emergency Provider Emergency Medicine; PCP Pediatrics
DX: M25.512 Pain in left shoulder (principal); F90.9 Attention-deficit hyperactivity disorder, unspecified type; F79 Unspecified intellectual disabilities
CPT/HCPCS: 73030; 99283

== ENCOUNTER 2020-12-31 22:23 | Emergency (ER) | payer MEDICAID, SELFPAY ==
[2020-12-31 22:24] VITALS: BP 153/102; PULSE 108; RESP 18; TEMP 35.8; O2SAT 95; BMI 40.3
--- NOTE | 2020-12-31 22:40 | RAD_ITS ---
INDICATION: injury EXAMINATION/TECHNIQUE: X-RAY - LEFT XR Wrist Min 3 Views COMPARISON: None. FINDINGS: No acute fracture or malalignment. No blastic or lytic lesions. No degenerative changes are seen. The soft tissues are unremarkable. RAD/Wrist min 3 Views IMPRESSION: No acute radiographic abnormalities. Electronically Signed: Hasmukh Cooper MD at 22:52 EDT Tel , Service support ,
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
--- NOTE | 2020-12-31 23:20 | RAD_ITS ---
STUDY: X-RAY - LEFT ELBOW REASON FOR EXAM: Female, 20 years old. Pain TECHNIQUE: 3 view(s) of the elbow. COMPARISON: None. FINDINGS: Normal visualized humerus, radius and ulna. Normal radiocapitellar and ulnotrochlear articulations. The soft tissue structures are unremarkable. RAD/Elbow min 3 Views IMPRESSION: Normal x-ray examination of the elbow. Electronically Signed: Rudy Garner DO at 23:31 EDT Tel , Service support ,
[2020-12-31 23:50] VITALS: BP 141/74; PULSE 92; RESP 15; O2SAT 98
== END 2020-12-31 23:51 | disposition home or self-care (01) ==
PROVIDERS: Emergency Provider Emergency Medicine; PCP Family Medicine
DX: S53.402A Unspecified sprain of left elbow, initial encounter (principal); M25.532 Pain in left wrist; Y04.0XXA Assault by unarmed brawl or fight, initial encounter; Y93.9 Activity, unspecified; Y92.9 Unspecified place or not applicable; Y99.9 Unspecified external cause status; I10 Essential (primary) hypertension
CPT/HCPCS: 73080; 73110; 99282

== ENCOUNTER 2021-01-03 13:28 | Emergency (ER) | payer MEDICAID, SELFPAY ==
[2021-01-03 13:30] VITALS: BP 143/95; PULSE 97; RESP 16; TEMP 36.1; O2SAT 99; BMI 43.0
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
[2021-01-03] MEDS: Acetaminophen 500 MG Tablet 1000 MG PO (14:15)
--- NOTE | 2021-01-03 14:25 | RAD_ITS ---
STUDY: X-RAY - LEFT HUMERUS REASON FOR EXAM: Injury of the left upper arm. TECHNIQUE: 2 view(s) of the humerus. COMPARISON: Left shoulder radiographs 08/02/2020. FINDINGS: Normal visualized humerus. There is no demonstrated fracture or osseous destructive process. There is no demonstrated soft tissue abnormality. RAD/Humerus min 2 Views IMPRESSION: Normal x-ray examination of the left humerus. Electronically Signed: Sanya Toussaint MD at 14:47 EDT Tel , Service support ,
--- NOTE | 2021-01-03 14:56 | ED.VISSUMM ---
- ER Visit Summary Date of Service: 01/03/21 Chief Complaint: Pain History of Present Illness: The patient is a 20 F with left arm pain for about a week. The patient said that her arm was stepped on. She had previous x-rays of her wrist and elbow, but continues to have upper arm pain. Associated with some mild swelling. No other associated symptoms. Patient feels safe at home. Physical Examination: Vitals reviewed. Normal inspection to the left arm. Tender to palpation diffusely over the left upper arm. Good range of motion. No laxity or deformity. Neurovascular intact distally. Compartments soft and supple. Test Results: X-rays reviewed by the radiologist and myself are unremarkable. Emergency Department Course and Treatment: Patient was treated with Tylenol for pain. X-rays were negative. Rest, ice, elevate. [id number] remedies for pain. Patient was given a number to contact police as she would like to file a report. Treatment Plan: As above Disposition: Discharge Impression: Left arm pain This note was generated with [employer] dictation software. It may contain incorrect words, spelling, and punctuation that were not noted in review of the chart prior to signing ED Disposition - Plan for ED Patient: Referrals: Gregor Trujillo MD [Primary Care Provider] -
--- NOTE | 2021-01-03 14:58 | ED.DEP ---
ED Disposition - Plan for ED Patient: Instructions: ED Contusion, Upper Extremity Referrals: Gregor Trujillo MD [Primary Care Provider] -
== END 2021-01-03 15:07 | disposition home or self-care (01) ==
PROVIDERS: Emergency Provider Emergency Medicine; PCP Family Medicine
DX: M79.622 Pain in left upper arm (principal); Y04.8XXA Assault by other bodily force, initial encounter; Y93.9 Activity, unspecified; Y92.9 Unspecified place or not applicable; Y99.9 Unspecified external cause status; E03.9 Hypothyroidism, unspecified; K21.9 Gastro-esophageal reflux disease without esophagitis; Z79.899 Other long term (current) drug therapy
CPT/HCPCS: 73060; 99283

== ENCOUNTER 2021-01-21 21:58 | Emergency (ER) | payer MEDICAID, SELFPAY ==
[2021-01-21 21:59] VITALS: BP 145/86; PULSE 112; RESP 16; TEMP 36.4; O2SAT 98; BMI 41.8
--- NOTE | 2021-01-21 22:10 | EX.ED.GENINJ ---
HPI History of Present Illness Chief Complaint: Fall Informant: patient Narrative Narrative: 20-year-old female presents with concern for right knee and back pain. States she sat on a chair which broke she fell backwards. Denies any head injury or loss of consciousness. States her right knee pain is aching and worse with movement. States that her back pain is also aching and worse with movement. Denies any numbness or tingling. 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 HTN (hypertension) Knee pain Severe headache Thyroid disease Home Medications norethindrone (contraceptive) 1 tab PO DAILY 01/21/19 [History Last Taken 04/22/19] levothyroxine 75 mcg tablet 1 tab PO DAILY 07/02/20 [History Last Taken Unknown] naproxen 500 mg PO BID #14 tablet 12/22/20 [Rx Last Taken Unknown] Allergy/AdvReac Type Severity Reaction Status Date / Time amoxicillin [From Augmentin] Allergy Other Verified 01/21/21 22:01 amoxicillin trihydrate Allergy Other Verified 01/21/21 22:01 [From Augmentin] azithromycin Allergy Other Verified 01/21/21 22:01 clavulanic acid Allergy Other Verified 01/21/21 22:01 [From Augmentin] erythromycin base Allergy Unknown Verified 01/21/21 22:01 [From E-Mycin] potassium clavulanate Allergy Other Verified 01/21/21 22:01 [From Augmentin] ibuprofen AdvReac Nausea Verified 01/21/21 22:01 Surgical History History of ear surgery History of eye surgery Social History Smoking Status: Never smoker alcohol intake: never ROS ROS ED Constitutional Constitutional ED: Denies chills, fever(s) or sweats Eyes Eyes: Denies blurry vision, change in vision or diplopia ENT ENT ED: Denies rhinorrhea or sore throat Cardiovascular Cardiovascular: Denies chest pain, orthopnea, palpitations or racing heartbeat Respiratory/Chest Respiratory/Chest: Denies cough, dyspnea, dyspnea on exertion, orthopnea or sputum Gastrointestinal Gastrointestinal: Denies abdominal pain, constipation, diarrhea, melena, nausea or vomiting Genitourinary Genitourinary ED: Denies dysuria, hematuria or urinary frequency Musculoskeletal Musculoskeletal: Reports arthralgias and back pain; Denies myalgias or neck pain Integumentary Denies rash Neurologic Neurologic: Denies headache(s), paresthesias or weakness Psychiatric Psychiatric: Denies anxiety or depression Hematologic/Lymphatic Hematologic/Lymphatic: Denies easy bleeding or easy bruising Allergic/Immunologic Allergic/Immunologic ED: Denies mouth swelling or tongue swelling EXAM Physical Exam Const Vital Signs: 01/21/21 21:59 Temperature 97.6 F L Temperature Source Temporal Pulse Rate 112 H Respiratory Rate 16 Blood Pressure 145/86 H Blood Pressure Mean 105 Pulse Ox 98 Oxygen Delivery Method Room Air Positive well nourished and well developed General Appearance ED: well developed HEENT Reports TM's clear and moist mucous membranes normocephalic and atraumatic Tympanic Membrane ED: Yes TM's clear Eyes PERRL and EOMs intact bilaterally Neck no lymphadenopathy, supple and no JVD Chest Wall inspection of chest normal Resp normal respiratory effort and clear to auscultation bilaterally Cardio regular rate, S1 normal heart sound, S2 normal heart sound and no murmurs Peripheral Pulses: pulses 2+ throughout GI soft to palpation, non-tender and non-distended Back/Spine no CVA tenderness and no thoracic nor lumbar tenderness Back/Spine Narrative: Right lumbar paraspinal TTP Extremity normal to inspection Extremity Narrative: TTP of the lateral right knee. Full ROM. General Extremety ED: Negative for edema General Extremity: Negative for edema Neuro oriented x3, CN's II-XII intact bilaterally and no sensory deficits noted Sensorium / Orientation: alert Motor Exam: strength 5/5 throughout Psych mental status grossly normal Skin no rashes or lesions noted MDM MDM MDM Narrative Medical decision making narrative: Patient appears well and nontoxic. No significant injury on exam. X-ray of the right knee negative. Lumbar x-ray negative. Patient given 1 g of Tylenol. Advised on rice therapy at home. Asked to return for new or worsening symptoms. Patient and mother agreeable. Discharged home in stable condition. Radiography Diagnostic Testing: Radiology Impression Knee X-Ray 01/21/21 22:35 IMPRESSION: Normal x-ray examination of the knee. Electronically Signed: Ben Glover DO at 23:01 EDT Tel [phone], Service support , Lumbar Spine X-Ray 01/21/21 22:41 IMPRESSION: Grade 1 spondylolisthesis at L5-S1. Spondylolysis of L5. Electronically Signed: Ben Glover DO at 23:03 EDT Tel [phone], Service support , Discharge Plan Triage Chief Complaint: Fall ED Provider: Renard Witt Dx/Rx/DC Orders Clinical Impression: Contusion of knee, right, Lumbar contusion Instructions: ED Soft Tissue Contusion, ED Back Contusion Prescriptions: No Action levothyroxine 75 mcg tablet 1 tab PO DAILY RF: 0 norethindrone (contraceptive) 0.35 MG tablet 1 tab PO DAILY RF: 0 naproxen 500 MG tablet 500 mg PO BID Qty: 14 RF: 0 Primary Care Provider: Gregor Trujillo Referrals: Gregor Trujillo MD [Primary Care Provider] - 2 Days Disposition Patient Disposition: Home, self care
--- NOTE | 2021-01-21 22:35 | RAD_ITS ---
STUDY: X-RAY - RIGHT KNEE REASON FOR EXAM: Female, 20 years old. Knee pain after fall TECHNIQUE: 4 view(s) of the knee. COMPARISON: None. FINDINGS: Normal visualized distal femur. Normal visualized proximal tibia and fibula. Normal proximal tibiofibular articulation. Normal medial femorotibial compartment. Normal lateral femorotibial compartment. Normal patellofemoral articulation. The soft tissue structures are unremarkable. RAD/Knee 4 or More Views IMPRESSION: Normal x-ray examination of the knee. Electronically Signed: Ben Glover DO at 23:01 EDT Tel [phone], Service support ,
--- NOTE | 2021-01-21 22:41 | RAD_ITS ---
STUDY: X-RAY - LUMBAR SPINE REASON FOR EXAM: Female, 20 years old. Back pain after fall TECHNIQUE: 3 view(s) of the lumbar spine were obtained. COMPARISON: None FINDINGS: Normal lumbar lordosis. There is grade 1 spondylolisthesis at L5-S1. There is a normal alignment of the vertebrae. Normal vertebral bodies and endplates. Normal disc space heights. Spondylolysis of L5. The soft tissue structures are unremarkable. RAD/Lumbar Spine 2 or 3 Views IMPRESSION: Grade 1 spondylolisthesis at L5-S1. Spondylolysis of L5. Electronically Signed: Ben Glover DO at 23:03 EDT Tel [phone], Service support ,
[2021-01-21 23:30] VITALS: RESP 14
== END 2021-01-21 23:30 | disposition home or self-care (01) ==
PROVIDERS: Emergency Provider Emergency Medicine; PCP Family Medicine
DX: S80.01XA Contusion of right knee, initial encounter (principal); S30.0XXA Contusion of lower back and pelvis, initial encounter; M43.17 Spondylolisthesis, lumbosacral region; W07.XXXA Fall from chair, initial encounter; Y93.9 Activity, unspecified; Y92.9 Unspecified place or not applicable; Y99.9 Unspecified external cause status; I10 Essential (primary) hypertension; E07.9 Disorder of thyroid, unspecified; Z79.3 Long term (current) use of hormonal contraceptives; Z79.890 Hormone replacement therapy
CPT/HCPCS: 72100; 73564; 99282

== ENCOUNTER 2021-01-31 18:10 | Emergency (ER) | payer MEDICAID, SELFPAY ==
[2021-01-31 18:11] VITALS: BP 142/84; PULSE 106; RESP 18; TEMP 35.8; O2SAT 96; BMI 42.2
--- NOTE | 2021-01-31 19:26 | EDS_ITS ---
HPI History of Present Illness Chief Complaint: Dizziness Informant: patient and parent Onset/Context/Timing Onset: Today Context: Gradual Onset Timing: Waxes and wanes Quality: Dizzy-lightheaded and spinning at times Location: Head Current Severity: Mild Maximum Severity: Moderate Worsened by: Turning head Relieved by: Remaining still and lying down now is better Associated Symptoms Associated Symptoms: Malaise Narrative Narrative: Mother has dysarthria along with a history of strokes, and has a hard time relaying history about this patient, the patient has history of an intellectual disability and also has trouble. From what it sounds like, earlier today she was walking and remembers feeling dizzy like she was spinning. She remembers also feeling little lightheaded at times and just feeling malaise, no fevers or chills but she did not feel near syncopal or syncopal. She has had a minor cough for a few days, along with some eye irritation on the left along with some crusty discharge. No vision changes or photophobia. No headache, tinnitus, earache, otorrhea. She denies any contact with anyone that she knows of with COVID-19 she has not been vaccinated. [facility] Medical History (Updated 01/31/21 @ 19:[address] 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 HTN (hypertension) Intellectual disability Knee pain Madelung's deformity Oppositional defiant disorder Severe headache Thyroid disease Undersocialized conduct disorder, aggressive type, moderate Home Medications norethindrone (contraceptive) 1 tab PO DAILY 01/21/19 [History Last Taken 04/22/19] levothyroxine 75 mcg tablet 1 tab PO DAILY 07/02/20 [History Last Taken Unknown] naproxen 500 mg PO BID #14 tablet 12/22/20 [Rx Last Taken Unknown] meclizine 25 mg PO TID PRN #20 tab 01/31/21 [Rx Last Taken Unknown] Allergy/AdvReac Type Severity Reaction Status Date / Time amoxicillin [From Augmentin] Allergy Other Verified 01/31/21 18:11 amoxicillin trihydrate Allergy Other Verified 01/31/21 18:11 [From Augmentin] azithromycin Allergy Other Verified 01/31/21 18:11 clavulanic acid Allergy Other Verified 01/31/21 18:11 [From Augmentin] erythromycin base Allergy Unknown Verified 01/31/21 18:11 [From E-Mycin] potassium clavulanate Allergy Other Verified 01/31/21 18:11 [From Augmentin] ibuprofen AdvReac Nausea Verified 01/31/21 18:11 Surgical History History of ear surgery History of eye surgery Social History Smoking Status: Never smoker alcohol intake: never ROS ROS ED Constitutional Constitutional ED: Reports malaise and other Details: dizziness ; Denies chills or fever(s) Eyes Eyes: Reports as per HPI, discharge from eye(s), irritation and itchy eyes; Denies change in vision or diplopia ENT ENT ED: Reports discharge from eye(s); Denies ear discharge, ear pain, hearing loss, rhinorrhea, sore throat, throat swelling or tinnitus Cardiovascular Cardiovascular: Denies chest pain or palpitations Respiratory/Chest Respiratory/Chest: Reports dry cough; Denies dyspnea Gastrointestinal Gastrointestinal: Denies abdominal pain, diarrhea, nausea or vomiting Genitourinary Genitourinary ED: Denies dysuria or hematuria Musculoskeletal Musculoskeletal: Denies back pain or neck pain Integumentary Denies abscess or rash Neurologic Neurologic: Denies headache(s), paresthesias or weakness Psychiatric Psychiatric: Denies anxiety or suicidal thoughts EXAM Physical Exam Const Vital Signs: 01/31/21 18:11 01/31/21 18:27 Temperature 96.4 F L Temperature Source Temporal Pulse Rate 106 H Respiratory Rate 18 Respiratory Effort Normal Non-Labored Respiratory Pattern Normal Blood Pressure 142/84 H Blood Pressure Mean 103 Pulse Ox 96 Oxygen Delivery Method Room Air Positive well nourished, well developed and obese General Appearance ED: well developed and NAD Nutritional Appearance: obese HEENT Reports moist mucous membranes normocephalic and atraumatic Eyes PERRL and EOMs intact bilaterally Neck full ROM and supple Resp normal respiratory effort and clear to auscultation bilaterally Cardio regular rate, regular rhythm and no murmurs GI non-tender and non-distended Auscultation: normoactive bowel sounds Palpation: soft Back/Spine no CVA tenderness General Back: other FROM Extremity normal to inspection General Extremety ED: Negative for edema, pulses abnormal or tenderness General Extremity: Negative for edema or pulses abnormal Neuro oriented x3, CN's II-XII intact bilaterally and no sensory deficits noted Sensorium / Orientation: awake and alert Motor Exam: strength 5/5 throughout Skin no rashes or lesions noted and no wounds MDM MDM MDM Narrative Medical decision making narrative: Patient turns her head back and forth and reproduces some mild vertigo but she is well-appearing now. She was seen in urgent care prior to this apparently, according to mom, and sent here for further evaluation. Her vital signs are unremarkable, she has no lateralizing abnormal neurologic findings and I do not think she is having a stroke. I think it would be reasonable to treat her with meclizine, and have her return if she is having further problems, discussed that with mom as well and she is comfortable with that plan. Discharge Plan Triage Chief Complaint: Dizziness ED Provider: Reji Henderson Dx/Rx/DC Orders Clinical Impression: Viral URI with cough, Viral conjunctivitis of left eye, Peripheral vertigo Instructions: ED Vertigo, Unspecified Prescriptions: New meclizine 25 mg tablet 25 mg PO TID PRN (Reason: vertigo) Qty: 20 RF: 0 No Action levothyroxine 75 mcg tablet 1 tab PO DAILY RF: 0 norethindrone (contraceptive) 0.35 MG tablet 1 tab PO DAILY RF: 0 naproxen 500 MG tablet 500 mg PO BID Qty: 14 RF: 0 Primary Care Provider: Gregor Trujillo Referrals: Gregor Trujillo MD [Primary Care Provider] - 1 Week if not improving Disposition Disposition: Home, self care Discharge Date/Time: 01/31/21 19:39
[2021-01-31] MEDS: Meclizine HCl 25 MG Tablet PO (19:35)
== END 2021-01-31 19:39 | disposition home or self-care (01) ==
PROVIDERS: Emergency Provider Emergency Medicine; PCP Family Medicine
DX: J06.9 Acute upper respiratory infection, unspecified (principal); B30.9 Viral conjunctivitis, unspecified; H81.399 Other peripheral vertigo, unspecified ear; Z20.822 Contact with and (suspected) exposure to COVID-19; I10 Essential (primary) hypertension; F90.9 Attention-deficit hyperactivity disorder, unspecified type; F79 Unspecified intellectual disabilities; Q74.0 Other congenital malformations of upper limb(s), including shoulder girdle; F91.3 Oppositional defiant disorder; E07.9 Disorder of thyroid, unspecified; Z79.3 Long term (current) use of hormonal contraceptives; Z79.890 Hormone replacement therapy; Z79.1 Long term (current) use of non-steroidal anti-inflammatories (NSAID); Z79.899 Other long term (current) drug therapy
CPT/HCPCS: 87426; 99283

== ENCOUNTER 2021-02-06 00:50 | Emergency (ER) | payer MEDICAID, SELFPAY ==
[2021-02-06 00:51] VITALS: BP 161/92; PULSE 95; RESP 18; TEMP 36.8; O2SAT 98; BMI 43.7
--- NOTE | 2021-02-06 00:51 | RAD_ITS ---
STUDY: X-RAY - LEFT WRIST REASON FOR EXAM: Female, 20 years old. Trauma TECHNIQUE: 3 view(s) of the wrist were obtained. COMPARISON: December 31, 2020 left wrist x-ray, left hand x-ray May 27, 2020 FINDINGS: Normal visualized distal radius and ulna. Normal radiocarpal articulation. There is a age indeterminate negative ulnar variance. Normal carpal bones. Normal carpal articulations. Normal carpometacarpal articulation of the thumb. Normal second through fifth carpometacarpal articulations. Normal visualized metacarpal bones. The soft tissue structures are unremarkable. RAD/Wrist min 3 Views IMPRESSION: Age indeterminant stable possible developmental and/or congenital negative ulnar variance. No visualized acute fracture. Electronically Signed: Dottie Barraza MD at 1:29 EDT Tel , Service support ,
--- NOTE | 2021-02-06 01:37 | EX.ED.DYSGE1 ---
HPI History of Present Illness Chief Complaint: Fall Informant: patient Onset/Context/Timing Onset: Today Context: Sudden Onset Location: Left wrist Current Severity: Moderate Maximum Severity: Severe Worsened by: Use Associated Symptoms Associated Symptoms: None Narrative Narrative: Patient slipped getting out of the shower and injured her left wrist. No other injuries. Prior similar symptoms: Yes Recent Illness/Hospitalization: No PFSH PFSH Medical History (Updated 02/06/21 @ 01:[address] 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 HTN (hypertension) Intellectual disability Knee pain Madelung's deformity Oppositional defiant disorder Severe headache Thyroid disease Undersocialized conduct disorder, aggressive type, moderate Home Medications norethindrone (contraceptive) 1 tab PO DAILY 01/21/19 [History Last Taken 04/22/19] levothyroxine 75 mcg tablet 1 tab PO DAILY 07/02/20 [History Last Taken Unknown] naproxen 500 mg PO BID #14 tablet 12/22/20 [Rx Last Taken Unknown] meclizine 25 mg PO TID PRN #20 tab 01/31/21 [Rx Last Taken Unknown] Allergy/AdvReac Type Severity Reaction Status Date / Time amoxicillin [From Augmentin] Allergy Other Verified 02/06/21 00:56 amoxicillin trihydrate Allergy Other Verified 02/06/21 00:56 [From Augmentin] azithromycin Allergy Other Verified 02/06/21 00:56 clavulanic acid Allergy Other Verified 02/06/21 00:56 [From Augmentin] erythromycin base Allergy Unknown Verified 02/06/21 00:56 [From E-Mycin] potassium clavulanate Allergy Other Verified 02/06/21 00:56 [From Augmentin] ibuprofen AdvReac Nausea Verified 02/06/21 00:56 Surgical History History of ear surgery History of eye surgery Social History Smoking Status: Never smoker alcohol intake: never ROS ROS ED Constitutional Constitutional ED: Denies chills, fever(s), subjective, sweats, weight loss or other Eyes Eyes: Denies blurry vision, change in vision, diplopia or other ENT ENT ED: Denies ear pain, rhinorrhea, sore throat or other Cardiovascular Cardiovascular: Denies chest pain, orthopnea, palpitations, paroxysmal nocturnal dyspnea, racing heartbeat or other Respiratory/Chest Respiratory/Chest: Denies cough, dyspnea, dyspnea on exertion, orthopnea, paroxysmal nocturnal dyspnea, sputum or other Gastrointestinal Gastrointestinal: Denies abdominal pain, constipation, diarrhea, melena, nausea, vomiting or other Genitourinary Genitourinary ED: Denies dysuria, hematuria, LMP (females 10-50), urinary frequency or other Musculoskeletal Musculoskeletal: Reports arthralgias; Denies back pain, myalgias or neck pain Integumentary Denies abscess, Abrasions or rash Neurologic Neurologic: Denies headache(s), paresthesias or weakness Allergic/Immunologic Allergic/Immunologic ED: Denies mouth swelling, tongue swelling or urticaria EXAM Physical Exam Narrative Exam Narrative: Vital signs reviewed. General: Alert and oriented, no acute distress Head and neck: Atraumatic, HEENT exam unremarkable, neck nontender Heart: Regular rate and rhythm Lungs: Clear bilateral Musculoskeletal: Diffuse left wrist tenderness. Normal inspection. Range of motion intact. Skin: Intact, atraumatic Neurologic: Good motor and sensory testing, symmetric Const Vital Signs: 02/06/21 00:51 02/06/21 00:54 Temperature 98.2 F Temperature Source Temporal Pulse Rate 95 Respiratory Rate 18 Respiratory Effort Normal Blood Pressure 161/92 H Blood Pressure Mean 115 Pulse Ox 98 Oxygen Delivery Method Room Air MDM MDM MDM Narrative Medical decision making narrative: X-rays reviewed by the radiologist and myself are negative. Patient treated with an ice pack. Use [id number] remedies for pain. Outpatient follow-up. Radiography Chest X-Ray - ED: Read by ED Physician and Read by Radiologist Diagnostic Testing: Radiology Impression Wrist X-Ray 02/06/21 00:51 IMPRESSION: Age indeterminant stable possible developmental and/or congenital negative ulnar variance. No visualized acute fracture. Electronically Signed: Dottie Barraza MD at 1:29 EDT Tel , Service support , Discharge Plan Triage Chief Complaint: Fall ED Provider: Cong Waldron Dx/Rx/DC Orders Clinical Impression: Left wrist sprain Instructions: ED Wrist Sprain Prescriptions: No Action levothyroxine 75 mcg tablet 1 tab PO DAILY RF: 0 norethindrone (contraceptive) 0.35 MG tablet 1 tab PO DAILY RF: 0 naproxen 500 MG tablet 500 mg PO BID Qty: 14 RF: 0 meclizine 25 mg tablet 25 mg PO TID PRN (Reason: vertigo) Qty: 20 RF: 0 Primary Care Provider: Gregor Trujillo Referrals: Gregor Trujillo MD [Primary Care Provider] - Disposition Disposition: Home, self care
== END 2021-02-06 01:46 | disposition home or self-care (01) ==
PROVIDERS: Emergency Provider Emergency Medicine; PCP Family Medicine
DX: S63.502A Unspecified sprain of left wrist, initial encounter (principal); W18.2XXA Fall in (into) shower or empty bathtub, initial encounter; Y93.E1 Activity, personal bathing and showering; Y92.9 Unspecified place or not applicable; Y99.9 Unspecified external cause status; I10 Essential (primary) hypertension; E07.9 Disorder of thyroid, unspecified; D64.9 Anemia, unspecified; F91.3 Oppositional defiant disorder; F90.9 Attention-deficit hyperactivity disorder, unspecified type; Q74.0 Other congenital malformations of upper limb(s), including shoulder girdle; Z79.1 Long term (current) use of non-steroidal anti-inflammatories (NSAID); Z79.3 Long term (current) use of hormonal contraceptives; Z79.899 Other long term (current) drug therapy
CPT/HCPCS: 73110; 99282

== ENCOUNTER 2021-02-15 13:17 | Emergency (ER) | payer MEDICAID, SELFPAY ==
[2021-02-15 13:19] VITALS: BP 155/84; PULSE 94; RESP 16; TEMP 35.8; O2SAT 99; BMI 43.8
--- NOTE | 2021-02-15 13:34 | RAD_ITS ---
STUDY: X-RAY - LEFT ANKLE REASON FOR EXAM: Female, 20 years old. fall , pain TECHNIQUE: 3 view(s) of the ankle. COMPARISON: None. FINDINGS: Normal visualized distal tibia and fibula. Normal medial and lateral malleoli. Normal tibiotalar articulation and ankle mortise. Normal visualized talus and calcaneus. The visualized subtalar, talonavicular, calcaneocuboid and tarsal articulations are normal. The soft tissue structures are unremarkable. RAD/Ankle min 3 Views IMPRESSION: No demonstrated fracture or malalignment. Electronically Signed: Michael Godinez MD ([place]) at 14:18 EDT , Service support ,
--- NOTE | 2021-02-15 13:34 | RAD_ITS ---
STUDY: X-RAY - LEFT FOOT CLINICAL: Female, 20 years old. fall, pain TECHNIQUE: 3 view(s) of the foot. COMPARISON: None. FINDINGS: Normal talus, calcaneus, and tarsal bones. Normal visualized subtalar, talonavicular, calcaneocuboid, tarsal and tarsometatarsal articulations. Normal metatarsi. Normal metatarsophalangeal joint of the great toe. Normal tibial and fibular sesamoid bones. Normal interphalangeal joint of the great toe. Normal phalanges of the great toe. Normal second through fifth metatarsophalangeal joints. Normal interphalangeal joints and phalanges of the lesser toes. The soft tissue structures are unremarkable. RAD/Foot min 3 Views IMPRESSION: No fracture or malalignment. Electronically Signed: Michael Godinez MD ([place]) at 14:18 EDT , Service support ,
--- NOTE | 2021-02-15 14:29 | EDS_ITS ---
HPI History of Present Illness Chief Complaint: Lower Extremity Injury Informant: patient Narrative Narrative: 20-year-old female presenting with left ankle pain. Patient states she fell in between 2 steps yesterday. She did not hit her head or lose consciousness. She complains of left ankle pain. Denies other injuries. Prior similar symptoms: Yes [facility] Medical History (Updated 02/15/21 @ 14:[address] 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 HTN (hypertension) Intellectual disability Knee pain Madelung's deformity Oppositional defiant disorder Severe headache Thyroid disease Undersocialized conduct disorder, aggressive type, moderate Home Medications norethindrone (contraceptive) 1 tab PO DAILY 01/21/19 [History Last Taken 04/22/19] levothyroxine 75 mcg tablet 1 tab PO DAILY 07/02/20 [History Last Taken Unknown] meclizine 25 mg PO TID PRN #20 tab 01/31/21 [Rx Last Taken Unknown] Allergy/AdvReac Type Severity Reaction Status Date / Time amoxicillin [From Augmentin] Allergy Other Verified 02/15/21 13:18 amoxicillin trihydrate Allergy Other Verified 02/15/21 13:18 [From Augmentin] azithromycin Allergy Other Verified 02/15/21 13:18 clavulanic acid Allergy Other Verified 02/15/21 13:18 [From Augmentin] erythromycin base Allergy Unknown Verified 02/15/21 13:18 [From E-Mycin] potassium clavulanate Allergy Other Verified 02/15/21 13:18 [From Augmentin] ibuprofen AdvReac Nausea Verified 02/15/21 13:18 Surgical History History of ear surgery History of eye surgery Social History Smoking Status: Never smoker alcohol intake: never ROS ROS ED Constitutional Constitutional ED: Denies fever(s) Cardiovascular Cardiovascular: Denies chest pain Respiratory/Chest Respiratory/Chest: Denies dyspnea Gastrointestinal Gastrointestinal: Denies abdominal pain Musculoskeletal Musculoskeletal: Reports other Details: left ankle pain Integumentary Denies rash Neurologic Neurologic: Denies headache(s) EXAM Physical Exam Const Vital Signs: 02/15/21 13:19 Temperature 96.4 F L Temperature Source Temporal Pulse Rate 94 Respiratory Rate 16 Blood Pressure 155/84 H Blood Pressure Mean 107 Pulse Ox 99 Oxygen Delivery Method Room Air Positive well nourished and well developed General Appearance ED: well developed HEENT Reports normocephalic and head/scalp atraumatic Eyes PERRL and EOMs intact bilaterally Neck supple General: Negative for tenderness Chest Wall inspection of chest normal Resp normal respiratory effort and clear to auscultation bilaterally Cardio regular rate and regular rhythm no CVA tenderness Extremity Extremity Narrative: Left lateral ankle tenderness and swelling. Mild fifth metatarsal tenderness. No Achilles tendon tenderness. No proximal fibula tenderness. Normal pulses. Neuro oriented x3 Sensorium / Orientation: alert Psych mental status grossly normal MDM MDM MDM Narrative Medical decision making narrative: Left foot and ankle x-ray read by myself and radiology show no fracture. Patient was given Aircast. She is advised to ice and elevate. Advised use NSAIDs for pain. Advised to follow-up with primary care physician. Advised return to ED for worsening complaints. Radiography Diagnostic Testing: Radiology Impression Ankle X-Ray 02/15/21 13:34 IMPRESSION: No demonstrated fracture or malalignment. Electronically Signed: Michael oGdinez MD ([place]) at 14:18 EDT , Service support , Foot X-Ray 02/15/21 13:34 IMPRESSION: No fracture or malalignment. Electronically Signed: Michael Godinez MD ([place]) at 14:18 EDT , Service support , Discharge Plan Triage Chief Complaint: Lower Extremity Injury ED Provider: Debra Frank Dx/Rx/DC Orders Clinical Impression: Left ankle sprain Instructions: ED Sprain Ankle W X Ray Prescriptions: No Action levothyroxine 75 mcg tablet 1 tab PO DAILY RF: 0 norethindrone (contraceptive) 0.35 MG tablet 1 tab PO DAILY RF: 0 meclizine 25 mg tablet 25 mg PO TID PRN (Reason: vertigo) Qty: 20 RF: 0 Primary Care Provider: Gregor Trujillo Referrals: Gregor Trujillo MD [Primary Care Provider] - Disposition Disposition: Home, self care
[2021-02-15 15:00] VITALS: BP 131/79; PULSE 72; RESP 15; O2SAT 99
== END 2021-02-15 15:00 | disposition home or self-care (01) ==
PROVIDERS: Emergency Provider Emergency Medicine; PCP Family Medicine
DX: S93.402A Sprain of unspecified ligament of left ankle, initial encounter (principal); W10.9XXA Fall (on) (from) unspecified stairs and steps, initial encounter; Y93.9 Activity, unspecified; Y92.9 Unspecified place or not applicable; Y99.9 Unspecified external cause status; E07.9 Disorder of thyroid, unspecified; Z79.3 Long term (current) use of hormonal contraceptives; Z79.890 Hormone replacement therapy; Z79.899 Other long term (current) drug therapy
CPT/HCPCS: 73610; 73630; 99283

== ENCOUNTER → 2021-02-21 15:07 | Outpatient (CLI) | payer MEDICAID, SELFPAY ==
[2021-02-15 13:19] VITALS: BMI 43.8
== END ==
PROVIDERS: PCP Family Medicine; Visit Provider Psychiatry & Neurology Sleep Medicine
DX: Z00.00 Encounter for general adult medical examination without abnormal findings (principal)

== ENCOUNTER 2021-02-21 15:27 | Emergency (ER) | payer MEDICAID, SELFPAY ==
[2021-02-21 15:27] VITALS: BP 165/84; PULSE 84; RESP 16; TEMP 36.6; O2SAT 96; BMI 33.4
--- NOTE | 2021-02-21 15:29 | RAD_ITS ---
STUDY: X-RAY - RIGHT SHOULDER REASON FOR EXAM: Female, 20 years old. PAIN TECHNIQUE: 4 view(s) of the shoulder. COMPARISON: None. FINDINGS: Normal glenohumeral articulation. Normal acromioclavicular joint. Normal acromion. Normal humeral head and visualized proximal humerus. The soft tissue structures are unremarkable. Normal visualized pulmonary apex. RAD/Shoulder min 2 Views IMPRESSION: Normal x-ray examination of the shoulder. Electronically Signed: Julianne Collins MD at 16:19 EDT Tel , Service support ,
--- NOTE | 2021-02-21 18:46 | EX.ED.UPPERE ---
HPI History of Present Illness HPI Narrative: Patient presents with right shoulder pain that began last night. Patient states she was reaching behind the freezer drawer of the refrigerator freezer when she felt pain in her shoulder. Patient describes the pain as sharp. Patient states the pain is worse with movement. Patient states it has been getting better with ice and heat. Patient denies any paresthesias or weakness. Patient denies any snapping or popping sensation. Patient denies any other injuries. 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 HTN (hypertension) Intellectual disability Knee pain Madelung's deformity Oppositional defiant disorder Severe headache Thyroid disease Undersocialized conduct disorder, aggressive type, moderate Home Medications norethindrone (contraceptive) 1 tab PO DAILY 01/21/19 [History Last Taken 04/22/19] levothyroxine 75 mcg tablet 1 tab PO DAILY 07/02/20 [History Last Taken Unknown] meclizine 25 mg PO TID PRN #20 tab 01/31/21 [Rx Last Taken Unknown] Allergy/AdvReac Type Severity Reaction Status Date / Time amoxicillin [From Augmentin] Allergy Other Verified 02/15/21 13:18 amoxicillin trihydrate Allergy Other Verified 02/15/21 13:18 [From Augmentin] azithromycin Allergy Other Verified 02/15/21 13:18 clavulanic acid Allergy Other Verified 02/15/21 13:18 [From Augmentin] erythromycin base Allergy Unknown Verified 02/15/21 13:18 [From E-Mycin] potassium clavulanate Allergy Other Verified 02/15/21 13:18 [From Augmentin] ibuprofen AdvReac Nausea Verified 02/15/21 13:18 Surgical History History of ear surgery History of eye surgery Social History Smoking Status: Never smoker alcohol intake: never ROS ROS ED Constitutional Constitutional ED: Denies chills or subjective Eyes Eyes: Denies blurry vision or change in vision ENT ENT ED: Denies rhinorrhea or sore throat Cardiovascular Cardiovascular: Denies chest pain or palpitations Respiratory/Chest Respiratory/Chest: Reports cough; Denies dyspnea Gastrointestinal Gastrointestinal: Denies nausea or vomiting Genitourinary Genitourinary ED: Denies dysuria or hematuria Musculoskeletal Musculoskeletal: Reports neck pain; Denies back pain Integumentary Denies abscess or rash Neurologic Neurologic: Reports headache(s); Denies weakness Psychiatric Psychiatric: Reports depression and suicidal thoughts Allergic/Immunologic Allergic/Immunologic ED: Denies mouth swelling or urticaria EXAM Physical Exam Const Vital Signs: 02/21/21 15:27 Temperature 98 F Temperature Source Temporal Pulse Rate 84 Respiratory Rate 16 Blood Pressure 165/84 H Blood Pressure Mean 111 Pulse Ox 96 Oxygen Delivery Method Room Air Positive well nourished and well developed General Appearance ED: well developed HEENT normocephalic and atraumatic Neck full ROM and supple Neck Narrative: There is some mild right cervical paraspinal tenderness. There is no midline tenderness. There is no bony crepitance or step-off. There is good range of motion. General: tenderness Extremity Extremity Narrative: There is tenderness over the right shoulder. There is no obvious deformity. Range of motion was limited all motions of the right shoulder secondary to pain. There is no bony crepitance or step-off. There is also some mild tenderness along the clavicle. There is no edema or ecchymosis. Strength is 5/5 bilaterally upper and lower extremities. There are no sensory deficits noted. Radial pulses are equal bilaterally. Neuro oriented x3, CN's II-XII intact bilaterally, moves all extremities, no focal motor deficits and no sensory deficits noted Sensorium / Orientation: alert Psych mental status grossly normal MDM MDM MDM Narrative Medical decision making narrative: X-rays of the right shoulder were obtained. There are 4 views. On my interpretation, there is no acute fracture. There is no dislocation. There is no soft tissue swelling. Radiologist also interpreted the x-rays and agrees. Patient was advised of her findings. Patient was instructed to use ice to the area. Patient was instructed to take Tylenol or ibuprofen as needed for pain. Patient was instructed to follow-up with her primary care physician in 5 to 7 days. Patient and family understood and were agreeable with the plan. All questions were answered. Radiography Diagnostic Testing: Radiology Impression Shoulder X-Ray 02/21/21 15:29 IMPRESSION: Normal x-ray examination of the shoulder. Electronically Signed: Julianne Collins MD at 16:19 EDT Tel , Service support , Discharge Plan Triage Chief Complaint: Upper Extremity Injury ED Provider: Shaheen Arnett Dx/Rx/DC Orders Clinical Impression: Muscle strain of right shoulder region Instructions: ED Muscle Strain, Extremity Prescriptions: No Action levothyroxine 75 mcg tablet 1 tab PO DAILY RF: 0 norethindrone (contraceptive) 0.35 MG tablet 1 tab PO DAILY RF: 0 meclizine 25 mg tablet 25 mg PO TID PRN (Reason: vertigo) Qty: 20 RF: 0 Primary Care Provider: Gregor Trujillo Referrals: Gregor Trujillo MD [Primary Care Provider] - 5-7 Days Disposition Disposition: Home, self care
== END 2021-02-21 19:04 | disposition home or self-care (01) ==
PROVIDERS: Emergency Provider Emergency Medicine; PCP Family Medicine
DX: S46.911A Strain of unspecified muscle, fascia and tendon at shoulder and upper arm level, right arm, initial encounter (principal); X58.XXXA Exposure to other specified factors, initial encounter
CPT/HCPCS: 73030; 99282

== ENCOUNTER 2021-02-25 21:10 | Emergency (ER) | payer MEDICAID, SELFPAY ==
[2021-02-25 21:11] VITALS: BP 143/85; PULSE 99; RESP 16; TEMP 37.1; O2SAT 98; BMI 42.1
--- NOTE | 2021-02-25 22:22 | EDS_ITS ---
HPI History of Present Illness Chief Complaint: Lower Extremity Injury Informant: patient Onset/Context/Timing Onset: Yesterday Context: Gradual Onset Timing: Continuous Quality of Pain: Stabbing Location: Right ankle Worsened by: Weightbearing Relieved by: Nothing Associated Symptoms Associated Symptoms: Negative for Parasthesia, Weakness and Loss of Funtion Narrative Narrative: Patient presents with right ankle pain that has been gradually getting worse since yesterday. Patient denies any trauma or injury. Patient states the pain is worse over the anterior medial aspect of the right ankle. Patient states the pain radiates up her calf. Patient states the pain is worse with weightbearing. Patient denies any paresthesias or weakness. 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 HTN (hypertension) Intellectual disability Knee pain Madelung's deformity Oppositional defiant disorder Severe headache Thyroid disease Undersocialized conduct disorder, aggressive type, moderate Home Medications norethindrone (contraceptive) 1 tab PO DAILY 01/21/19 [History Last Taken 04/22/19] levothyroxine 75 mcg tablet 1 tab PO DAILY 07/02/20 [History Last Taken Unknown] meclizine 25 mg PO TID PRN #20 tab 01/31/21 [Rx Last Taken Unknown] Allergy/AdvReac Type Severity Reaction Status Date / Time amoxicillin [From Augmentin] Allergy Other Verified 02/25/21 21:11 amoxicillin trihydrate Allergy Other Verified 02/25/21 21:11 [From Augmentin] azithromycin Allergy Other Verified 02/25/21 21:11 clavulanic acid Allergy Other Verified 02/25/21 21:11 [From Augmentin] erythromycin base Allergy Unknown Verified 02/25/21 21:11 [From E-Mycin] potassium clavulanate Allergy Other Verified 02/25/21 21:11 [From Augmentin] ibuprofen AdvReac Nausea Verified 02/25/21 21:11 Surgical History History of ear surgery History of eye surgery Social History Smoking Status: Never smoker alcohol intake: never ROS ROS ED Constitutional Constitutional ED: Denies chills or fever(s) Eyes Eyes: Denies blurry vision or change in vision ENT ENT ED: Denies rhinorrhea or sore throat Cardiovascular Cardiovascular: Denies chest pain or palpitations Respiratory/Chest Respiratory/Chest: Denies cough or dyspnea Gastrointestinal Gastrointestinal: Denies nausea or vomiting Genitourinary Genitourinary ED: Denies dysuria or hematuria Musculoskeletal Musculoskeletal: Denies back pain or neck pain Integumentary Denies abscess or rash Neurologic Neurologic: Denies headache(s) or weakness Allergic/Immunologic Allergic/Immunologic ED: Denies mouth swelling or urticaria EXAM Physical Exam Const Vital Signs: 02/25/21 21:11 Temperature 98.7 F Temperature Source Temporal Pulse Rate 99 Respiratory Rate 16 Blood Pressure 143/85 H Blood Pressure Mean 104 Pulse Ox 98 Oxygen Delivery Method Room Air Positive well nourished, well developed and obese General Appearance ED: well developed Nutritional Appearance: obese HEENT Reports moist mucous membranes Extremity Extremity Narrative: There is tenderness over the medial aspect of the right ankle. There is no edema or ecchymosis. There is no bony crepitance or step- off. There is no deformity noted. There is no calf tenderness. There is no erythema or warmth. There is good range of motion of the right ankle. Pedal pulses are equal bilaterally. Neuro oriented x3, CN's II-XII intact bilaterally, moves all extremities and no sensory deficits noted Sensorium / Orientation: alert Motor Exam: strength 5/5 throughout Psych mental status grossly normal MDM MDM MDM Narrative Medical decision making narrative: Patient was advised that this is most likely a tendinitis. Patient was instructed to ice and elevate the right ankle. P atient was instructed to take ibuprofen as needed for pain. Patient was instructed to follow-up with her primary care physician in 5 to 7 days. Patient understood and was agreeable with the plan. All questions were answered. Discharge Plan Triage Chief Complaint: Lower Extremity Injury ED Provider: Shaheen Arnett Dx/Rx/DC Orders Clinical Impression: Tendinitis of right ankle Instructions: ED Tendonitis Prescriptions: No Action levothyroxine 75 mcg tablet 1 tab PO DAILY RF: 0 norethindrone (contraceptive) 0.35 MG tablet 1 tab PO DAILY RF: 0 meclizine 25 mg tablet 25 mg PO TID PRN (Reason: vertigo) Qty: 20 RF: 0 Primary Care Provider: Gregor Trujillo Referrals: Gregor Trujillo MD [Primary Care Provider] - 5-7 Days Disposition Disposition: Home, self care
[2021-02-25 22:34] VITALS: BP 122/71; PULSE 74; RESP 17; O2SAT 98
== END 2021-02-25 22:37 | disposition home or self-care (01) ==
PROVIDERS: Emergency Provider Emergency Medicine; PCP Family Medicine
DX: M77.51 Other enthesopathy of right foot and ankle (principal); E66.9 Obesity, unspecified
CPT/HCPCS: 99282; A4216

== ENCOUNTER → 2021-03-03 17:11 | Outpatient (CLI) | payer MEDICAID, SELFPAY ==
[2021-02-25 21:11] VITALS: BMI 42.1
--- NOTE | 2021-03-03 17:12 | RAD_ITS ---
HISTORY: Trauma, left little toe injury EXAMINATION/TECHNIQUE: XR Toes Min 2 Views: COMPARISON: None FINDINGS: BONES/JOINTS: Intra-articular cortical avulsion fracture from the medial aspect of the fifth proximal phalanx at the PIP joint, minimal displacement. Preservation of the joint spaces. SOFT TISSUES: No soft tissue swelling or gas. No radiopaque foreign body. RAD/Toe(s) Min 2 Views IMPRESSION: Intra-articular cortical avulsion fracture from the fifth proximal phalanx. at 1801 Reported and signed by: Joseph Nation MD Electronically Signed: Joseph Nation MD at 17:59 EDT Tel , Service support ,
== END ==
PROVIDERS: PCP Family Medicine; Referring Provider Physician Assistant; Visit Provider Physician Assistant
DX: S99.922A Unspecified injury of left foot, initial encounter (principal); X58.XXXA Exposure to other specified factors, initial encounter; Y93.9 Activity, unspecified; Y92.9 Unspecified place or not applicable; Y99.9 Unspecified external cause status
CPT/HCPCS: 73660

== ENCOUNTER 2021-03-13 22:58 | Emergency (ER) | payer MEDICAID, SELFPAY ==
[2021-03-13 22:59] VITALS: BP 162/90; PULSE 94; RESP 18; TEMP 36.3; O2SAT 96; BMI 41.8
--- NOTE | 2021-03-13 23:20 | RAD_ITS ---
STUDY: X-RAY - LEFT ANKLE REASON FOR EXAM: Female, 20 years old. ankle pain TECHNIQUE: 3 view(s) of the ankle. COMPARISON: None. FINDINGS: Normal visualized distal tibia and fibula. Normal medial and lateral malleoli. Normal tibiotalar articulation and ankle mortise. Normal visualized talus and calcaneus. The visualized subtalar, talonavicular, calcaneocuboid and tarsal articulations are normal. The soft tissue structures are unremarkable. RAD/Ankle min 3 Views IMPRESSION: No evidence of acute fracture or dislocation. Electronically Signed: Daniel Krueger DO at 23:42 EDT , Service support ,
[2021-03-13] MEDS: HYDROcodone Bitartrate/Apap 5/325 Tablet PO (23:22)
--- NOTE | 2021-03-13 23:50 | EDS_ITS ---
HPI History of Present Illness Chief Complaint: Lower Extremity Injury Narrative Narrative: 20-year-old female presenting with her mother for complaint of left toe pain. She states that she broke this a couple of weeks ago. She is unable to get a visit with her primary care doctor. She has a sports medicine appointment in 1 month. She was seen previously at the [facility] where she had an x-ray done and showed that she had a fracture however they did not give her anything for pain and told her to alternate Tylenol and ibuprofen. This is not helping. Patient also has complaint of left ankle pain and she states she never had this x-rayed. 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 HTN (hypertension) Injury of left toe Intellectual disability Knee pain Madelung's deformity Nondisplaced fracture of middle phalanx of left lesser toe(s), initial encounter for closed fracture Nondisplaced fracture of proximal phalanx of left lesser toe(s), initial encounter for closed fracture Oppositional defiant disorder Severe headache Thyroid disease Undersocialized conduct disorder, aggressive type, moderate Home Medications norethindrone (contraceptive) 1 tab PO DAILY 01/21/19 [History Last Taken 04/22/19] levothyroxine 75 mcg tablet 1 tab PO DAILY 07/02/20 [History Last Taken Unknown] meclizine 25 mg PO TID PRN #20 tab 01/31/21 [Rx Last Taken Unknown] hydrocodone-acetaminophen 1 tab PO Q6H PRN PRN 3 Days #12 tablet 03/13/21 [Rx Last Taken Unknown] Allergy/AdvReac Type Severity Reaction Status Date / Time amoxicillin [From Augmentin] Allergy Other Verified 03/13/21 23:01 amoxicillin trihydrate Allergy Other Verified 03/13/21 23:01 [From Augmentin] azithromycin Allergy Other Verified 03/13/21 23:01 clavulanic acid Allergy Other Verified 03/13/21 23:01 [From Augmentin] erythromycin base Allergy Unknown Verified 03/13/21 23:01 [From E-Mycin] potassium clavulanate Allergy Other Verified 03/13/21 23:01 [From Augmentin] ibuprofen AdvReac Nausea Verified 03/13/21 23:01 Surgical History History of ear surgery History of eye surgery Social History Smoking Status: Never smoker alcohol intake: never ROS ROS ED Constitutional Constitutional ED: Denies chills, fever(s) or sweats Eyes Eyes: Denies blurry vision or change in vision ENT ENT ED: Denies ear pain, rhinorrhea or sore throat Cardiovascular Cardiovascular: Denies chest pain, palpitations or racing heartbeat Respiratory/Chest Respiratory/Chest: Denies cough, dyspnea or sputum Gastrointestinal Gastrointestinal: Denies abdominal pain, constipation, diarrhea or vomiting Genitourinary Genitourinary ED: Denies dysuria, hematuria or urinary frequency Musculoskeletal Musculoskeletal: Reports arthralgias and other Details: Left fifth toe pain. Left ankle pain. ; Denies myalgias or neck pain Integumentary Denies abscess, Abrasions or rash Neurologic Neurologic: Denies headache(s), paresthesias or weakness Psychiatric Psychiatric: Denies anxiety, depression, suicidal ideation or suicidal thoughts Endocrine Endocrinology: Denies polydipsia or polyuria EXAM Physical Exam Const Vital Signs: 03/13/21 22:59 Temperature 97.3 F L Temperature Source Temporal Pulse Rate 94 Respiratory Rate 18 Blood Pressure 162/90 H Blood Pressure Mean 114 Pulse Ox 96 Oxygen Delivery Method Room Air Positive well nourished General Appearance ED: NAD HEENT Reports moist mucous membranes Negative for tenderness Eyes PERRL and EOMs intact bilaterally Resp normal respiratory effort and clear to auscultation bilaterally Cardio regular rate and regular rhythm Extremity Extremity Narrative: Tenderness to palpation diffusely around the left ankle. There is no deformity. There is no swelling. The left small toe is tender to palpation. This does not appear to be swollen or deformed. Left foot is neurovascular intact with prescription for all 5 toes. Neuro oriented x3 Sensorium / Orientation: alert Psych mental status grossly normal Skin no rashes or lesions noted and no wounds MDM MDM MDM Narrative Medical decision making narrative: Patient presenting for pain medication because she states that Tylenol and ibuprofen are not helping. I was able to see her x-ray and she does have an interarticular fracture of the left small toe. She also complaining of ankle pain today so I did get an x-ray of the left ankle which by my interpretation shows no acute evidence of fracture or dislocation. The radiologist does agree. I did not natalee-ray the foot given that I can see it is already broken on previous x-ray. I will give her [place] here and give her a prescription for [place]. I did family and marriage counsellor her to use ibuprofen or Aleve as an adjunct and only use the [place] for breakthrough pain. Patient is amenable to this plan. She is discharged home in stable condition. Impression: 1. History of left fifth toe fracture 2. Left ankle sprain Radiography Diagnostic Testing: Radiology Impression Ankle X-Ray 03/13/21 23:20 IMPRESSION: No evidence of acute fracture or dislocation. Electronically Signed: Daniel DO Evans at 23:42 EDT , Service support , Discharge Plan Triage Chief Complaint: Lower Extremity Injury ED Provider: Timothy Grigsby Dx/Rx/DC Orders Instructions: ED Fracture, Foot, ED Ankle Sprain (Adult) Prescriptions: New hydrocodone-acetaminophen 5-325 mg tablet 1 tab PO Q6H PRN PRN (Reason: Pain) 3 Days Qty: 12 RF: 0 No Action levothyroxine 75 mcg tablet 1 tab PO DAILY RF: 0 norethindrone (contraceptive) 0.35 MG tablet 1 tab PO DAILY RF: 0 meclizine 25 mg tablet 25 mg PO TID PRN (Reason: vertigo) Qty: 20 RF: 0 Primary Care Provider: Gregor Trujillo Referrals: Gregor Trujillo MD [Primary Care Provider] -
[2021-03-13 23:53] VITALS: BP 156/90; PULSE 89; RESP 18; O2SAT 97
== END 2021-03-13 23:54 | disposition home or self-care (01) ==
PROVIDERS: Emergency Provider Student in an Organized Health Care Education/Training Program; PCP Family Medicine
DX: S93.402A Sprain of unspecified ligament of left ankle, initial encounter (principal); X58.XXXA Exposure to other specified factors, initial encounter; Y93.9 Activity, unspecified; Y92.9 Unspecified place or not applicable; Y99.9 Unspecified external cause status; S92.52 Fracture of middle phalanx of lesser toe(s); S92.515D Nondisplaced fracture of proximal phalanx of left lesser toe(s), subsequent encounter for fracture with routine healing; X58.XXXD Exposure to other specified factors, subsequent encounter; I10 Essential (primary) hypertension; E07.9 Disorder of thyroid, unspecified; F79 Unspecified intellectual disabilities; Q74.0 Other congenital malformations of upper limb(s), including shoulder girdle; Z79.3 Long term (current) use of hormonal contraceptives; Z79.890 Hormone replacement therapy; Z79.899 Other long term (current) drug therapy
CPT/HCPCS: 73610; 99283

== ENCOUNTER 2021-03-14 22:06 | Emergency (ER) | payer MEDICAID, SELFPAY ==
[2021-03-13 22:59] VITALS: BMI 41.8
[2021-03-14 22:07] VITALS: BP 146/85; PULSE 109; RESP 18; TEMP 36.2; O2SAT 99; BMI 41.1
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
--- NOTE | 2021-03-14 22:55 | RAD_ITS ---
INDICATION: wrist pain EXAMINATION/TECHNIQUE: X-RAY - LEFT XR Wrist Min 3 Views COMPARISON: None. FINDINGS: No acute fracture or malalignment. No blastic or lytic lesions. No degenerative changes are seen. The soft tissues are unremarkable. RAD/Wrist min 3 Views IMPRESSION: No acute radiographic abnormalities. Electronically Signed: Hasmukh Cooper MD at 23:35 EDT Tel , Service support ,
--- NOTE | 2021-03-14 22:55 | RAD_ITS ---
INDICATION: foot pain EXAMINATION/TECHNIQUE: X-RAY - RIGHT XR Foot Min 3 Views COMPARISON: None. FINDINGS: No acute fracture or malalignment. No blastic or lytic lesions. No degenerative changes are seen. The soft tissues are unremarkable. RAD/Foot min 3 Views IMPRESSION: No acute radiographic abnormalities. Electronically Signed: Hasmukh Cooper MD at 23:34 EDT Tel , Service support ,
--- NOTE | 2021-03-14 23:12 | RAD_ITS ---
INDICATION: FOOT PAIN EXAMINATION/TECHNIQUE: X-RAY - LEFT XR Foot Min 3 Views COMPARISON: None. FINDINGS: No acute fracture or malalignment. Apparent lucent line projecting over the medial aspect of the head of the fifth proximal phalanx is most likely a skinfold. No blastic or lytic lesions. No degenerative changes are seen. The soft tissues are unremarkable. RAD/Foot min 3 Views IMPRESSION: No acute radiographic abnormalities. Electronically Signed: Hasmukh Cooper MD at 23:35 EDT Tel , Service support ,
== END 2021-03-15 00:07 | disposition home or self-care (01) ==
PROVIDERS: Emergency Provider Student in an Organized Health Care Education/Training Program; PCP Family Medicine
DX: S10.81XA Abrasion of other specified part of neck, initial encounter (principal); S63.502A Unspecified sprain of left wrist, initial encounter; S90.32XA Contusion of left foot, initial encounter; S90.31XA Contusion of right foot, initial encounter; Y04.0XXA Assault by unarmed brawl or fight, initial encounter; Y93.9 Activity, unspecified; Y92.009 Unspecified place in unspecified non-institutional (private) residence as the place of occurrence of the external cause; Y99.9 Unspecified external cause status; S92.502D Displaced unspecified fracture of left lesser toe(s), subsequent encounter for fracture with routine healing; X58.XXXD Exposure to other specified factors, subsequent encounter; I10 Essential (primary) hypertension; E07.9 Disorder of thyroid, unspecified; Z79.899 Other long term (current) drug therapy
CPT/HCPCS: 73110; 73630; 99282

== ENCOUNTER 2021-03-17 21:22 | Emergency (ER) | payer MEDICAID, SELFPAY ==
[2021-03-17 21:23] VITALS: BP 147/89; PULSE 86; RESP 15; TEMP 36.3; O2SAT 96; BMI 48.5
--- NOTE | 2021-03-17 21:32 | RAD_ITS ---
STUDY: X-RAY - LEFT SHOULDER REASON FOR EXAM: Female, 20 years old. PAIN WITH MOVEMENT TECHNIQUE: view(s) of the shoulder. COMPARISON: None. FINDINGS: Normal glenohumeral articulation. Normal acromioclavicular joint. Normal acromion. Normal humeral head and visualized proximal humerus. The soft tissue structures are unremarkable. Normal visualized pulmonary apex. RAD/Shoulder min 2 Views IMPRESSION: Normal x-ray examination of the shoulder. Electronically Signed: Johnathon Cruz MD at 22:01 EDT , Service support ,
--- NOTE | 2021-03-17 23:22 | EX.ED.UPPERE ---
HPI History of Present Illness HPI Narrative: Patient lost her balance and fell onto her left shoulder today. No other injuries or complaints. 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 HTN (hypertension) Injury of left toe Intellectual disability Knee pain Madelung's deformity Nondisplaced fracture of middle phalanx of left lesser toe(s), initial encounter for closed fracture Nondisplaced fracture of proximal phalanx of left lesser toe(s), initial encounter for closed fracture Oppositional defiant disorder Severe headache Thyroid disease Undersocialized conduct disorder, aggressive type, moderate Home Medications norethindrone (contraceptive) 1 tab PO DAILY 01/21/19 [History Last Taken 04/22/19] levothyroxine 75 mcg tablet 1 tab PO DAILY 07/02/20 [History Last Taken Unknown] meclizine 25 mg PO TID PRN #20 tab 01/31/21 [Rx Last Taken Unknown] hydrocodone-acetaminophen 1 tab PO Q6H PRN PRN 3 Days #12 tablet 03/13/21 [Rx Last Taken Unknown] Allergy/AdvReac Type Severity Reaction Status Date / Time amoxicillin [From Augmentin] Allergy Other Verified 03/17/21 21:25 amoxicillin trihydrate Allergy Other Verified 03/17/21 21:25 [From Augmentin] azithromycin Allergy Other Verified 03/17/21 21:25 clavulanic acid Allergy Other Verified 03/17/21 21:25 [From Augmentin] erythromycin base Allergy Unknown Verified 03/17/21 21:25 [From E-Mycin] potassium clavulanate Allergy Other Verified 03/17/21 21:25 [From Augmentin] ibuprofen AdvReac Nausea Verified 03/17/21 21:25 Surgical History History of ear surgery History of eye surgery Social History Smoking Status: Never smoker alcohol intake: never ROS ROS ED Constitutional Constitutional ED: Reports frequent falls; Denies chills Eyes Eyes: Denies change in vision ENT ENT ED: Denies ear pain Cardiovascular Cardiovascular: Denies chest pain Respiratory/Chest Respiratory/Chest: Denies dyspnea Gastrointestinal Gastrointestinal: Denies abdominal pain, nausea or vomiting Genitourinary Genitourinary ED: Denies dysuria Musculoskeletal Musculoskeletal: Reports myalgias; Denies back pain or neck pain Integumentary Denies abscess, Abrasions or rash Neurologic Neurologic: Denies headache(s), paresthesias or weakness Psychiatric Psychiatric: Denies depression Endocrine Endocrinology: Denies polyuria Hematologic/Lymphatic Hematologic/Lymphatic: Denies easy bruising Allergic/Immunologic Allergic/Immunologic ED: Denies urticaria EXAM Physical Exam Const Vital Signs: 03/17/21 21:23 Temperature 97.3 F L Temperature Source Temporal Pulse Rate 86 Respiratory Rate 15 Blood Pressure 147/89 H Blood Pressure Mean 108 Pulse Ox 96 Oxygen Delivery Method Room Air Positive well nourished and well developed General Appearance ED: well developed HEENT normocephalic and atraumatic Eyes EOMs intact bilaterally Neck full ROM and supple General: Negative for tenderness Resp normal respiratory effort and clear to auscultation bilaterally Cardio regular rate and regular rhythm Back/Spine no CVA tenderness Cervical Spine: Negative for cervical spine tenderness Thoracic Spine / Upper Back: Negative for thoracic spinal tenderness Lumbar Spine / Lower Back: Negative for lumbar spinal tenderness Extremity normal to inspection and full ROM General Extremety ED: Negative for edema or other findings General Extremity: Negative for edema or other findings Neuro oriented x3, no focal motor deficits and no sensory deficits noted Sensorium / Orientation: alert Psych mental status grossly normal Skin Lesions: no lesions Rashes: no rashes MDM MDM MDM Narrative Medical decision making narrative: Patient presents with a fall. Left shoulder injury. Exam is unremarkable. X-rays reviewed by the radiologist and myself are unremarkable. Patient was treated with the pain pill and will be discharged with outpatient follow-up. Radiography Diagnostic Testing: Radiology Impression Shoulder X-Ray 03/17/21 21:32 IMPRESSION: Normal x-ray examination of the shoulder. Electronically Signed: Johnathon Cruz MD at 22:01 EDT , Service support , Discharge Plan Triage Chief Complaint: Upper Extremity Injury ED Provider: Cong Waldron Dx/Rx/DC Orders Clinical Impression: Acute shoulder pain Instructions: ED Arthralgia Prescriptions: No Action levothyroxine 75 mcg tablet 1 tab PO DAILY RF: 0 norethindrone (contraceptive) 0.35 MG tablet 1 tab PO DAILY RF: 0 meclizine 25 mg tablet 25 mg PO TID PRN (Reason: vertigo) Qty: 20 RF: 0 hydrocodone-acetaminophen 5-325 mg tablet 1 tab PO Q6H PRN PRN (Reason: Pain) 3 Days Qty: 12 RF: 0 Primary Care Provider: Gregor Trujillo Referrals: Gregor Trujillo MD [Primary Care Provider] - Disposition Disposition: Home, self care
[2021-03-17 23:51] VITALS: BP 136/78; PULSE 79; RESP 18
== END 2021-03-17 23:52 | disposition home or self-care (01) ==
PROVIDERS: Emergency Provider Emergency Medicine; PCP Family Medicine
DX: M25.512 Pain in left shoulder (principal); W18.30XA Fall on same level, unspecified, initial encounter; R29.6 Repeated falls; Y93.9 Activity, unspecified; Y92.9 Unspecified place or not applicable; Y99.9 Unspecified external cause status; I10 Essential (primary) hypertension; E07.9 Disorder of thyroid, unspecified; F79 Unspecified intellectual disabilities; Z79.899 Other long term (current) drug therapy
CPT/HCPCS: 73030; 99282

== ENCOUNTER → 2021-03-18 16:01 | Outpatient (CLI) | payer MEDICAID, SELFPAY ==
[2021-03-18 15:53] VITALS: BMI 48.5
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
== END ==
PROVIDERS: PCP Family Medicine; Referring Provider Physician Assistant Surgical; Visit Provider Physician Assistant Surgical
DX: S50.12XA Contusion of left forearm, initial encounter (principal); S60.212A Contusion of left wrist, initial encounter; X58.XXXA Exposure to other specified factors, initial encounter; Y93.9 Activity, unspecified; Y92.9 Unspecified place or not applicable; Y99.9 Unspecified external cause status
CPT/HCPCS: 73090; 73110

== ENCOUNTER 2021-03-29 18:02 | Emergency (ER) | payer MEDICAID, SELFPAY ==
[2021-03-18 15:53] VITALS: BMI 48.5
[2021-03-29 18:03] VITALS: BP 152/81; PULSE 71; RESP 14; TEMP 36.1; O2SAT 97; BMI 42.0
--- NOTE | 2021-03-29 18:05 | EKG12_ITS ---
Test Reason : CP Blood Pressure : / mmHG Vent. Rate : 068 BPM Atrial Rate : 068 BPM P-R Int : 158 ms QRS Dur : 084 ms QT Int : 396 ms P-R-T Axes : 038 050 041 degrees QTc Int : 421 ms Normal sinus rhythm Normal ECG Confirmed by KARIN ECHEVARRIA, JOEL ([id number]), food expeditor CHERYL HATHAWAY ([id number]) on 04/02/2021 1:09:16 PM Referred By: LOUISE Confirmed By:JOEL FRAZIER MD
--- NOTE | 2021-03-29 18:20 | EDS_ITS ---
HPI History of Present Illness Chief Complaint: Chest Pain Informant: patient and parent Onset/Context/Timing Onset: Yesterday Timing: Continuous Location: Substernal Current Severity: Mild Maximum Severity: Mild Worsened By: Eating Relieved By: Nothing Associated Symptoms: Positive for Acid Reflux; Negative for Nausea, Vomiting, Diaphoresis, Dyspnea, Cough, Fever, Lightheadedness and Palpitations Narrative Narrative: 20-year-old female chest pain since yesterday. Worse with swallowing. Not changed with exertion. No shortness of breath. No hemoptysis. No DVT or PE history or risk factors. No leg pain or swelling. 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 HTN (hypertension) Injury of left toe Intellectual disability Knee pain Madelung's deformity Nondisplaced fracture of middle phalanx of left lesser toe(s), initial encounter for closed fracture Nondisplaced fracture of proximal phalanx of left lesser toe(s), initial encounter for closed fracture Oppositional defiant disorder Severe headache Thyroid disease Undersocialized conduct disorder, aggressive type, moderate Home Medications norethindrone (contraceptive) 1 tab PO DAILY 01/21/19 [History Last Taken 04/22/19] levothyroxine 75 mcg tablet 1 tab PO DAILY 07/02/20 [History Last Taken Unknown] meclizine 25 mg PO TID PRN #20 tab 01/31/21 [Rx Last Taken Unknown] hydrocodone-acetaminophen 1 tab PO Q6H PRN PRN 3 Days #12 tablet 03/13/21 [Rx Last Taken Unknown] Allergy/AdvReac Type Severity Reaction Status Date / Time amoxicillin [From Augmentin] Allergy Other Verified 03/29/21 18:03 amoxicillin trihydrate Allergy Other Verified 03/29/21 18:03 [From Augmentin] azithromycin Allergy Other Verified 03/29/21 18:03 clavulanic acid Allergy Other Verified 03/29/21 18:03 [From Augmentin] erythromycin base Allergy Unknown Verified 03/29/21 18:03 [From E-Mycin] potassium clavulanate Allergy Other Verified 03/29/21 18:03 [From Augmentin] ibuprofen AdvReac Nausea Verified 03/29/21 18:03 Surgical History History of ear surgery History of eye surgery Social History Smoking Status: Never smoker alcohol intake: never ROS ROS ED ROS Narrative Denies any recent illness. Has had reflux symptoms with eating. Review of Systems ROS Unobtainable: Denies due to encephalopathy Constitutional Constitutional ED: Denies chills or fever(s) Eyes Eyes: Denies none ENT ENT ED: Denies ear pain or sore throat Cardiovascular Cardiovascular: Reports chest pain; Denies palpitations or racing heartbeat Respiratory/Chest Respiratory/Chest: Denies cough, dyspnea or sputum Gastrointestinal Gastrointestinal: Denies abdominal pain, diarrhea, nausea or vomiting Genitourinary Genitourinary ED: Denies dysuria or hematuria Musculoskeletal Musculoskeletal: Denies myalgias Integumentary Denies rash Neurologic Neurologic: Denies headache(s) Psychiatric Psychiatric: Denies depression Endocrine Endocrinology: Denies polyuria Hematologic/Lymphatic Hematologic/Lymphatic: Denies easy bruising Allergic/Immunologic Allergic/Immunologic ED: Denies urticaria EXAM Physical Exam Narrative Exam Narrative: 20-year-old female complaining of burning chest pain since last evening. Vital signs stable afebrile. Pulse ox 97%. No distress. HEENT exam unremarkable. Lungs clear to auscultation. Heart regular rate and rhythm no murmur rate 70. Chest wall nontender. Abdomen obese soft nontender normal bowel sounds no peritoneal signs. Moving all 4 extremities. She also has a bruise on the back of her right hand consistent with a contusion. It is tender. There is no gross bony deformity. Calves are nontender without edema or cords. Neurologically she is awake and alert. Const Vital Signs: 03/29/21 18:03 Temperature 97 F L Temperature Source Temporal Pulse Rate 71 Respiratory Rate 14 Blood Pressure 152/81 H Blood Pressure Mean 104 Pulse Ox 97 Oxygen Delivery Method Room Air Positive well nourished, well developed and obese General Appearance ED: well developed Nutritional Appearance: obese HEENT Reports moist mucous membranes normocephalic and atraumatic; Negative for trauma or tenderness Eyes PERRL and EOMs intact bilaterally Neck no lymphadenopathy, supple and no JVD General: Negative for tenderness Chest Wall inspection of chest normal and palpation of chest normal Resp normal respiratory effort and clear to auscultation bilaterally Effort and Inspection: respiratory distress Cardio regular rate, regular rhythm, S1 normal heart sound, S2 normal heart sound and no murmurs Peripheral Pulses: radial pulses present GI normal to inspection, nondistended, normoactive bowel sounds, soft to palpation, non-tender, non-distended and no masses Auscultation: Negative for hyperactive bowel sounds Back/Spine no CVA tenderness Extremity normal to inspection General Extremety ED: Negative for edema, pulses abnormal or tenderness General Extremity: Negative for edema or pulses abnormal Neuro Sensorium / Orientation: awake and alert Psych mental status grossly normal Skin no rashes or lesions noted and no wounds Heart Score History: Slightly/Non-Suspicious ECG: Normal Age: </= 45 years Risk Factors: No Risk Factors Score: 0 MDM MDM MDM Narrative Medical decision making narrative: 20-year-old female unremarkable exam. No reproducible chest wall pain. EKG is a normal sinus rhythm rate of 68 no acute signs of VT or ischemia. She is on control but really has no other significant risk factors for DVT or PE. No recent travel, surgery or immobilization. No calf pain or swelling. No hemoptysis. Pain is not pleuritic. There is no significant family history of blood clots. She has reflux type of symptoms. She be treated with GI cocktail and Pepcid. A chest x-ray also be obtained. Repeat exam patient is doing well at 6:50 PM. Chest pain relieved with the GI cocktail and Protonix. I went over x-ray and test results with the patient and her mom and they are comfortable with her being discharged home. Radiography Chest X-Ray - ED: 1 View, Read by ED Physician, Normal, Heart, Lungs, Mediastinum, Bony Structures and No Acute Disease Rhythm Strip Rhythm Strip: Sinus Rhythm Rate: 68 Ectopy: None EKG Initial EKG: Attestation: I personally reviewed and interpreted this EKG as follows: Interpretation: Sinus Rhythm and No Acute Injury Pattern Comments: Normal sinus rhythm rate of 68 no acute signs of VT or ischemia. Inverted T waves in V1 and V2. Prior EKG tracings: not available for review Prior: No Prior Discharge Plan Triage Chief Complaint: Chest Pain ED Provider: Godfrey Mcintosh Dx/Rx/DC Orders Clinical Impression: Acid reflux, Chest pain, Contusion of hand, right Instructions: What Is GERD?, Bruises (Contusions), ED Chest Pain, Uncertain Cause Prescriptions: No Action levothyroxine 75 mcg tablet 1 tab PO DAILY RF: 0 norethindrone (contraceptive) 0.35 MG tablet 1 tab PO DAILY RF: 0 meclizine 25 mg tablet 25 mg PO TID PRN (Reason: vertigo) Qty: 20 RF: 0 hydrocodone-acetaminophen 5-325 mg tablet 1 tab PO Q6H PRN PRN (Reason: Pain) 3 Days Qty: 12 RF: 0 Primary Care Provider: Gregor Trujillo Referrals: Gregor Trujillo MD [Primary Care Provider] - 3-5 Days if not improving Activity Restrictions/Additional Instructions: The chest pain seems to be associated with acid reflux and not her heart. She may use Tums or Protonix at home for the discomfort. Follow-up with your doctor if not improving. Return if she is feeling worse. Her chest x-ray and EKG were unremarkable. Her hand x-ray was normal. Disposition Disposition: Home, Self Care
[2021-03-29] MEDS: Pantoprazole Sodium 40 MG Tablet PO (18:23)
[2021-03-29] MEDS: Mag Hydrox/Al Hydrox/Simeth 30 ML UDC PO (18:23)
--- NOTE | 2021-03-29 18:38 | RAD_ITS ---
STUDY: X-RAY - RIGHT HAND REASON FOR EXAM: Female, 20 years old. trauma, pain TECHNIQUE: 3 view(s) of the hand. COMPARISON: None. FINDINGS: Normal radiocarpal articulation. There is a negative ulnar variant of the distal radioulnar articulation. Normal visualized carpal bones. Normal carpal articulations Normal carpometacarpal articulation of the thumb. Normal second through fifth carpometacarpal joints. Normal metacarpi. Normal metacarpophalangeal joint of the thumb. Normal interphalangeal joint of the thumb. Normal proximal and distal phalanges of the thumb. Normal metacarpophalangeal joints of the second through fifth fingers. Normal proximal and distal interphalangeal joints of the second through fifth fingers. Normal phalanges of the second through fifth fingers. The soft tissue structures are unremarkable. RAD/Hand Min 3 Views IMPRESSION: No fracture or malalignment. Electronically Signed: Michael Godinez MD ([place]) at 19:13 EDT , Service support ,
--- NOTE | 2021-03-29 18:38 | RAD_ITS ---
STUDY: X-RAY CHEST REASON FOR EXAM: Female, 20 years old. cp TECHNIQUE: PA and lateral views of the chest. COMPARISON: None. FINDINGS: The lungs are clear but under expanded. There is no demonstrated pleural abnormality. Normal size heart. Normal mediastinum and igor. Normal visualized pulmonary arteries. Normal visualized aortic arch and descending thoracic aorta. Normal visualized thoracic spine. Normal visualized ribs, clavicles, and shoulders. There is no demonstrated abnormality of the visualized soft tissue structures of the upper abdomen. RAD/Chest PA and Lateral IMPRESSION: No acute cardiopulmonary process. Electronically Signed: Michael Godinez MD ([place]) at 19:12 EDT , Service support ,
== END 2021-03-29 18:58 | disposition home or self-care (01) ==
PROVIDERS: Emergency Provider Emergency Medicine; PCP Family Medicine
DX: R07.9 Chest pain, unspecified (principal); K21.9 Gastro-esophageal reflux disease without esophagitis; S60.221A Contusion of right hand, initial encounter; X58.XXXA Exposure to other specified factors, initial encounter; Y93.9 Activity, unspecified; Y92.9 Unspecified place or not applicable; Y99.9 Unspecified external cause status; I10 Essential (primary) hypertension; F79 Unspecified intellectual disabilities; Q74.0 Other congenital malformations of upper limb(s), including shoulder girdle; E07.9 Disorder of thyroid, unspecified; E66.9 Obesity, unspecified; Z79.3 Long term (current) use of hormonal contraceptives; Z79.899 Other long term (current) drug therapy
CPT/HCPCS: 71046; 73130; 93005; 99283

== ENCOUNTER 2021-04-12 16:17 | Emergency (ER) | payer MEDICAID, SELFPAY ==
[2021-04-12 16:18] VITALS: BP 152/85; PULSE 97; RESP 16; TEMP 36.3; O2SAT 98; BMI 42.4
--- NOTE | 2021-04-12 17:16 | EX.ED.VIS.EY ---
HPI History of Present Illness Chief Complaint: Eye Problem Informant: patient and parent Narrative Narrative: Nontraumatic left eye pain since yesterday. Wears glasses for distance. Chronic blurry vision. States also pain along lower eyelids and cheek. No fevers. Also reports her left foot was stepped on yesterday. Pain in the pinky toe. No other complaints. 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 HTN (hypertension) Injury of left toe Intellectual disability Knee pain Madelung's deformity Nondisplaced fracture of middle phalanx of left lesser toe(s), initial encounter for closed fracture Nondisplaced fracture of proximal phalanx of left lesser toe(s), initial encounter for closed fracture Oppositional defiant disorder Severe headache Thyroid disease Undersocialized conduct disorder, aggressive type, moderate Home Medications norethindrone (contraceptive) 1 tab PO DAILY 01/21/19 [History Last Taken 04/22/19] levothyroxine 75 mcg tablet 1 tab PO DAILY 07/02/20 [History Last Taken Unknown] meclizine 25 mg PO TID PRN #20 tab 01/31/21 [Rx Last Taken Unknown] hydrocodone-acetaminophen 1 tab PO Q6H PRN PRN 3 Days #12 tablet 03/13/21 [Rx Last Taken Unknown] Allergy/AdvReac Type Severity Reaction Status Date / Time amoxicillin [From Augmentin] Allergy Other Verified 04/12/21 16:22 amoxicillin trihydrate Allergy Other Verified 04/12/21 16:22 [From Augmentin] azithromycin Allergy Other Verified 04/12/21 16:22 clavulanic acid Allergy Other Verified 04/12/21 16:22 [From Augmentin] erythromycin base Allergy Unknown Verified 04/12/21 16:22 [From E-Mycin] potassium clavulanate Allergy Other Verified 04/12/21 16:22 [From Augmentin] ibuprofen AdvReac Nausea Verified 04/12/21 16:22 Surgical History History of ear surgery History of eye surgery Social History Smoking Status: Never smoker alcohol intake: never ROS ROS ED Constitutional Constitutional ED: Denies chills, fever(s) or sweats Eyes Eyes: Reports blurry vision and other Details: Left eye pain ; Denies change in vision ENT ENT ED: Denies dysphagia or sore throat Cardiovascular Cardiovascular: Denies chest pain, leg edema, palpitations or racing heartbeat Respiratory/Chest Respiratory/Chest: Denies cough, dyspnea or dyspnea on exertion Gastrointestinal Gastrointestinal: Denies abdominal pain, diarrhea, nausea or vomiting Genitourinary Genitourinary ED: Denies dysuria, hematuria or urinary frequency Musculoskeletal Musculoskeletal: Reports other Details: Left fifth toe pain ; Denies back pain, extremity pain or neck pain Integumentary Denies rash or wounds Neurologic Neurologic: Denies headache(s), paresthesias or weakness EXAM Physical Exam Const Vital Signs: 04/12/21 16:18 Temperature 97.3 F L Temperature Source Temporal Pulse Rate 97 Respiratory Rate 16 Blood Pressure 152/85 H Blood Pressure Mean 107 Pulse Ox 98 Oxygen Delivery Method Room Air Positive well nourished and well developed General Appearance ED: well developed and NAD HEENT Reports moist mucous membranes HEENT Narrative: There is erythema along the maxillary region with tenderness. There is no crepitus. normocephalic and atraumatic Eyes PERRL, EOMs intact bilaterally and conjunctivae normal Eyes Narrative: Visual acuity 20/50 OD, 20/200 OS, 20/70 OU. Left eye examination, normal eyelids, normal sclera, no erythema. Pupils equal and reactive to light, no fixed pupils. No pain with eye movement. General Eye ED: Yes normal appearance of both eyes Neck no lymphadenopathy and supple General: Negative for tenderness Chest Wall Chest: Negative for tenderness Resp normal respiratory effort and normal air movement Effort and Inspection: symmetric chest movement; Negative for respiratory distress Cardio regular rate, regular rhythm and no murmurs Peripheral Pulses: pulses 2+ throughout GI normal to inspection, nondistended, normoactive bowel sounds and non-tender Palpation: Negative for guarding or rebound tenderness present Back/Spine no CVA tenderness and no thoracic nor lumbar tenderness Extremity Extremity Narrative: Left lower extremity: No ankle tenderness. No midfoot tenderness. There is tender palpation of the proximal fifth toe with no deformities. Skin intact. Neurovascular intact. General Extremety ED: Negative for edema or tenderness General Extremity: Negative for edema Neuro oriented x3 and no sensory deficits noted Sensorium / Orientation: awake and alert Skin no rashes or lesions noted and no wounds MDM MDM MDM Narrative Medical decision making narrative: Patient multiple complaints. Reports eye pain with no sclera, left eye was more blurry there was no fixed pupils for concerns of glaucoma. She has not had her eyes checked for the past year. She had erythema around her cheek could be early cellulitis. There is no crepitus. She is started on doxycycline. With her left foot injury x-ray was ordered noted fracture of middle phalanx of the fourth toe. This was closed. She is tender on reevaluation in this area. Prior to initial x-ray nursing reported she had a left pinky finger injury from a car door recently. Left hand x-ray was added, this was negative for any fracture. Evaluation mild tenderness at the MCP joint of the fifth digit. Skin was intact. Neurovascular intact. She is provided a postop shoe. She is given follow-up with Dr. Gorman for her toe fracture. She is also given follow-up with ophthalmology with her eye complaints and blurry vision. Prescription for doxycycline. Radiography Diagnostic Testing: Left hand x-ray 3 views: No fracture or dislocation. Left foot x-ray 3 views: Oblique fracture middle phalanx fourth toe Discharge Plan Triage Chief Complaint: Eye Problem ED Provider: Christian Cortez Dx/Rx/DC Orders Clinical Impression: Cellulitis of face, Blurred vision, left eye, Contusion of hand, left, Closed fracture of toe, phalanx Instructions: ED Blurred Vision, ED Cellulitis, Facial, ED Hand Contusion, ED Fracture, Toe, Closed Prescriptions: No Action levothyroxine 75 mcg tablet 1 tab PO DAILY RF: 0 norethindrone (contraceptive) 0.35 MG tablet 1 tab PO DAILY RF: 0 meclizine 25 mg tablet 25 mg PO TID PRN (Reason: vertigo) Qty: 20 RF: 0 hydrocodone-acetaminophen 5-325 mg tablet 1 tab PO Q6H PRN PRN (Reason: Pain) 3 Days Qty: 12 RF: 0 Primary Care Provider: Gregor Trujillo Referrals: Victor Hugo Walker MD [STAFF PHYSICIAN] - 1 Day (left eye pain/blurry vision) Victor Hugo Gorman DPM [STAFF PHYSICIAN] - 1 Week (toe fracture) Gregor Trujillo MD [Primary Care Provider] - 3-5 Days if not improving Activity Restrictions/Additional Instructions: Fourth toe fracture. Postop shoe for comfort. Tylenol or Motrin as needed. Follow-up with podiatry. Left eye blurry vision and pain. Follow-up with ophthalmology. Take antibiotic for cellulitis of the face. Disposition Disposition: Home, Self Care
--- NOTE | 2021-04-12 17:22 | RAD_ITS ---
STUDY: X-RAY - LEFT HAND REASON FOR EXAM: Female, 20 years old. pinky finger pain TECHNIQUE: 3 view(s) of the hand. COMPARISON: Left hand x-ray dated May 27, 2020 FINDINGS: Normal radiocarpal articulation. Normal distal radioulnar joint. Normal visualized carpal bones. Normal carpal articulations Normal carpometacarpal articulation of the thumb. Normal second through fifth carpometacarpal joints. Normal metacarpi. No visualized fracture. Normal metacarpophalangeal joint of the thumb. Normal interphalangeal joint of the thumb. Normal proximal and distal phalanges of the thumb. Normal metacarpophalangeal joints of the second through fifth fingers. Normal proximal and distal interphalangeal joints of the second through fifth fingers. Normal phalanges of the second through fifth fingers. The soft tissue structures are unremarkable. RAD/Hand Min 3 Views IMPRESSION: Normal x-ray examination of the hand. Electronically Signed: Pako Baker MD at 18:11 EDT , Service support ,
--- NOTE | 2021-04-12 17:35 | RAD_ITS ---
STUDY: X-RAY - LEFT FOOT CLINICAL: Female, 20 years old. 5th toe injury TECHNIQUE: 3 view(s) of the foot. COMPARISON: None. FINDINGS: An acute oblique corner fracture is present at the base of the middle phalanx of the fourth digit with mild displacement. Mild to moderate soft tissue swelling is present over the dorsum of the forefoot. Normal talus, calcaneus, and tarsal bones. Normal visualized subtalar, talonavicular, calcaneocuboid, tarsal and tarsometatarsal articulations. Normal metatarsi. Normal metatarsophalangeal joint of the great toe. Normal tibial and fibular sesamoid bones. Normal interphalangeal joint of the great toe. Normal phalanges of the great toe. Normal second through fifth metatarsophalangeal joints. RAD/Foot min 3 Views IMPRESSION: An acute oblique corner fracture is present at the base of the middle phalanx of the fourth digit with mild displacement Electronically Signed: Pako Baker MD at 18:13 EDT , Service support ,
[2021-04-12] MEDS: Doxycycline 100 MG CAPSULE PO (19:02)
[2021-04-12 19:04] VITALS: PULSE 76; RESP 17; O2SAT 97
== END 2021-04-12 19:05 | disposition home or self-care (01) ==
PROVIDERS: Emergency Provider Emergency Medicine; PCP Family Medicine
DX: L03.211 Cellulitis of face (principal); H53.8 Other visual disturbances; S60.222A Contusion of left hand, initial encounter; S92.525A Nondisplaced fracture of middle phalanx of left lesser toe(s), initial encounter for closed fracture; W50.0XXA Accidental hit or strike by another person, initial encounter; Y93.9 Activity, unspecified; Y92.9 Unspecified place or not applicable; Y99.9 Unspecified external cause status; Q74.0 Other congenital malformations of upper limb(s), including shoulder girdle; I10 Essential (primary) hypertension; E07.9 Disorder of thyroid, unspecified
CPT/HCPCS: 73130; 73630; 99284

== ENCOUNTER 2021-05-03 23:25 | Emergency (ER) | payer MEDICAID, SELFPAY ==
[2021-05-03 23:26] VITALS: BP 144/82; PULSE 107; RESP 18; TEMP 36.7; O2SAT 98; BMI 42.4
--- NOTE | 2021-05-03 23:55 | EDS_ITS ---
HPI History of Present Illness Chief Complaint: Eye Problem Informant: patient and parent Narrative Narrative: Patient presents with some itching of the left eye. There is a little bit of redness. It is better if she does not rub it. She states she was cleaning at home and may have gotten some dust from the top of a ceiling fan in the eye. But she is not sure. There is not a foreign body sensation. There is no pain. She states the vision seems okay but it is hard for her to open her eye fully. She has a remote history of right eye surgery. She has no fevers chills. No headache. No nausea or vomiting. Rubbing makes it worse doing nothing makes it better. 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 HTN (hypertension) Injury of left toe Intellectual disability Knee pain Madelung's deformity Nondisplaced fracture of middle phalanx of left lesser toe(s), initial encounter for closed fracture Nondisplaced fracture of proximal phalanx of left lesser toe(s), initial encounter for closed fracture Oppositional defiant disorder Severe headache Thyroid disease Undersocialized conduct disorder, aggressive type, moderate Home Medications norethindrone (contraceptive) 1 tab PO DAILY 01/21/19 [History Last Taken 04/22/19] levothyroxine 75 mcg tablet 1 tab PO DAILY 07/02/20 [History Last Taken Unknown] meclizine 25 mg PO TID PRN #20 tab 01/31/21 [Rx Last Taken Unknown] hydrocodone-acetaminophen 1 tab PO Q6H PRN PRN 3 Days #12 tablet 03/13/21 [Rx Last Taken Unknown] Allergy/AdvReac Type Severity Reaction Status Date / Time amoxicillin [From Augmentin] Allergy Other Verified 05/03/21 23:28 amoxicillin trihydrate Allergy Other Verified 05/03/21 23:28 [From Augmentin] azithromycin Allergy Other Verified 05/03/21 23:28 clavulanic acid Allergy Other Verified 05/03/21 23:28 [From Augmentin] erythromycin base Allergy Unknown Verified 05/03/21 23:28 [From E-Mycin] potassium clavulanate Allergy Other Verified 05/03/21 23:28 [From Augmentin] ibuprofen AdvReac Nausea Verified 05/03/21 23:28 Surgical History History of ear surgery History of eye surgery Social History Smoking Status: Never smoker alcohol intake: never ROS ROS ED Constitutional Constitutional ED: Denies chills or fever(s) Eyes Eyes: Reports other Details: See history of present illness. Patient states it is just a little hard for her to open her eyes. Otherwise she feels her vision is normal. We had trouble doing visual acuity because she does not recognize her letter as well. She had great difficulty understanding the instructions to do this. ; Denies diplopia ENT ENT ED: Denies ear pain or rhinorrhea Gastrointestinal Gastrointestinal: Denies nausea or vomiting Musculoskeletal Musculoskeletal: Denies arthralgias or myalgias Integumentary Denies rash Neurologic Neurologic: Denies headache(s) Allergic/Immunologic Allergic/Immunologic ED: Denies urticaria EXAM Physical Exam Const Vital Signs: 05/03/21 23:26 Temperature 98.1 F Temperature Source Temporal Pulse Rate 107 H Respiratory Rate 18 Blood Pressure 144/82 H Blood Pressure Mean 102 Pulse Ox 98 Oxygen Delivery Method Room Air Positive well nourished, well developed and obese General Appearance ED: well developed and NAD Nutritional Appearance: obese HEENT HEENT Narrative: No sign of trauma or abrasions. No facial rash or vesicles. Negative Irizarry sign. atraumatic; Negative for trauma Eyes Eyes Narrative: Very minimal photophobia. Pupillary function is normal. Extraocular muscles are normal. There is no tearing. There is a small amount of discharge. There is some injection of the scleral conjunctival on the left. Slit-lamp exam shows no foreign body under either lid. I see no abrasions. There is no fluorescein dye uptake. Neck supple Lymph Lymphatic Narrative: No local lymph nodes. Neuro oriented x3 Sensorium / Orientation: alert Skin Rashes: no rashes MDM MDM MDM Narrative Medical decision making narrative: Patient has some injection and itching of the left eye. This could have been from a small amount of dust. Patient also has animals including a dog and a rabbit. She evidently gets pinkeye frequently. I think antibiotic drops/ointment is appropriate. No sign of glaucoma. Pupils are reactive and there is minimal if any photophobia. Cornea is not cloudy. We discussed reasons to return with her and her mother. Discharge Plan Triage Chief Complaint: Eye Problem ED Provider: Mike Lombardo Dx/Rx/DC Orders Clinical Impression: Conjunctivitis Instructions: ED Conjunctivitis, Nonspecific Prescriptions: No Action levothyroxine 75 mcg tablet 1 tab PO DAILY RF: 0 norethindrone (contraceptive) 0.35 MG tablet 1 tab PO DAILY RF: 0 meclizine 25 mg tablet 25 mg PO TID PRN (Reason: vertigo) Qty: 20 RF: 0 hydrocodone-acetaminophen 5-325 mg tablet 1 tab PO Q6H PRN PRN (Reason: Pain) 3 Days Qty: 12 RF: 0 Primary Care Provider: Gregor Trujillo Referrals: Gregor Trujillo MD [Primary Care Provider] - 1-2 Days if not improving Disposition Disposition: Home, Self Care Discharge Date/Time: 05/04/21 01:29
[2021-05-04] MEDS: Tetracaine 0.5% Ophthalmic Bottle 1 DRP OPHTHALMIC (00:30)
[2021-05-04] MEDS: Fluorescein 1 MG STRIP 1 STRIP OPHTHALMIC (00:31)
[2021-05-04 00:57] VITALS: BP 144/82; PULSE 107; RESP 15; O2SAT 98
[2021-05-04] MEDS: BACITRACIN 15 GM Tube 1 APPLIC TOPICAL (01:12)
[2021-05-04 01:17] VITALS: BP 144/82; PULSE 107; RESP 15; O2SAT 97
== END 2021-05-04 01:29 | disposition home or self-care (01) ==
PROVIDERS: Emergency Provider Emergency Medicine; PCP Family Medicine
DX: H10.9 Unspecified conjunctivitis (principal); I10 Essential (primary) hypertension; E07.9 Disorder of thyroid, unspecified; F79 Unspecified intellectual disabilities; Q74.0 Other congenital malformations of upper limb(s), including shoulder girdle; F90.9 Attention-deficit hyperactivity disorder, unspecified type; F91.3 Oppositional defiant disorder; E66.9 Obesity, unspecified; Z79.890 Hormone replacement therapy; Z79.899 Other long term (current) drug therapy
CPT/HCPCS: 99284

== ENCOUNTER 2021-05-04 22:12 | Emergency (ER) | payer MEDICAID, SELFPAY ==
[2021-05-03 23:26] VITALS: BMI 42.4
[2021-05-04 22:13] VITALS: BP 138/96; PULSE 86; RESP 15; TEMP 36.3; O2SAT 98; BMI 41.1
--- NOTE | 2021-05-04 22:36 | EDS_ITS ---
HPI History of Present Illness Chief Complaint: Laceration Informant: patient and parent Narrative Narrative: Patient abraded her left ankle on a piece of tile in their house. It sounds like she may have rolled this ankle also. She did not fall to the ground though. No other injury. Both she and her mother states her tetanus shot was just updated recently. Her sole complaint is the left ankle injury. Nothing really makes it better or worse that they can ascertain. 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 HTN (hypertension) Injury of left toe Intellectual disability Knee pain Madelung's deformity Nondisplaced fracture of middle phalanx of left lesser toe(s), initial encounter for closed fracture Nondisplaced fracture of proximal phalanx of left lesser toe(s), initial encounter for closed fracture Oppositional defiant disorder Severe headache Thyroid disease Undersocialized conduct disorder, aggressive type, moderate Home Medications norethindrone (contraceptive) 1 tab PO DAILY 01/21/19 [History Last Taken 04/22/19] levothyroxine 75 mcg tablet 1 tab PO DAILY 07/02/20 [History Last Taken Unknown] meclizine 25 mg PO TID PRN #20 tab 01/31/21 [Rx Last Taken Unknown] hydrocodone-acetaminophen 1 tab PO Q6H PRN PRN 3 Days #12 tablet 03/13/21 [Rx Last Taken Unknown] Allergy/AdvReac Type Severity Reaction Status Date / Time amoxicillin [From Augmentin] Allergy Other Verified 05/04/21 22:15 amoxicillin trihydrate Allergy Other Verified 05/04/21 22:15 [From Augmentin] azithromycin Allergy Other Verified 05/04/21 22:15 clavulanic acid Allergy Other Verified 05/04/21 22:15 [From Augmentin] erythromycin base Allergy Unknown Verified 05/04/21 22:15 [From E-Mycin] potassium clavulanate Allergy Other Verified 05/04/21 22:15 [From Augmentin] ibuprofen AdvReac Nausea Verified 05/04/21 22:15 Surgical History History of ear surgery History of eye surgery Social History Smoking Status: Never smoker alcohol intake: never ROS ROS ED Gastrointestinal Gastrointestinal: Denies nausea or vomiting Musculoskeletal Musculoskeletal: Reports other Details: Left ankle pain as above ; Denies back pain or neck pain Integumentary Reports Abrasions Neurologic Neurologic: Denies weakness Hematologic/Lymphatic Hematologic/Lymphatic: Denies easy bleeding or easy bruising EXAM Physical Exam Const Vital Signs: 05/04/21 22:13 Temperature 97.4 F L Temperature Source Temporal Pulse Rate 86 Respiratory Rate 15 Blood Pressure 138/96 H Blood Pressure Mean 110 Pulse Ox 98 Oxygen Delivery Method Room Air Positive well nourished, well developed and obese General Appearance ED: well developed and NAD Nutritional Appearance: obese HEENT normocephalic Eyes General Eye ED: Yes other Other Details: Improving eye from last night. Resp normal respiratory effort Cardio regular rate and regular rhythm Extremity full ROM Extremity Narrative: There is an abrasion to the anterior lateral aspect of the left ankle. There is some mild swelling and tenderness there. It is hard to ascertain if the tenderness is due to deeper structures or the superficial abrasion. Ankle does seem to be stable to inversion eversion and drawer. Neuro oriented x3 Sensorium / Orientation: alert Psych mental status grossly normal Skin Trauma: abrasion MDM MDM MDM Narrative Medical decision making narrative: Three-view right patient's ankle looked at by me shows no sign of acute fracture. Cleansing and dressing was done. This abrasion is not amenable to suturing. It is really a superficial abrasion. She does not need antibiotics. This should heal with conservative care. Return with redness pain fevers chills or other concerns. Discharge Plan Triage Chief Complaint: Laceration ED Provider: Mike Lombardo Dx/Rx/DC Orders Clinical Impression: Abrasion of ankle, left Instructions: ED Abrasion Prescriptions: No Action levothyroxine 75 mcg tablet 1 tab PO DAILY RF: 0 norethindrone (contraceptive) 0.35 MG tablet 1 tab PO DAILY RF: 0 meclizine 25 mg tablet 25 mg PO TID PRN (Reason: vertigo) Qty: 20 RF: 0 hydrocodone-acetaminophen 5-325 mg tablet 1 tab PO Q6H PRN PRN (Reason: Pain) 3 Days Qty: 12 RF: 0 Primary Care Provider: Gregor Trujillo Referrals: Gregor Trujillo MD [Primary Care Provider] - 3-5 Days if not improving Disposition Disposition: Home, Self Care
--- NOTE | 2021-05-04 22:51 | RAD_ITS ---
STUDY: X-RAY - LEFT ANKLE REASON FOR EXAM: Female, 20 years old. trauma TECHNIQUE: 3 view(s) of the ankle. COMPARISON: March 13, 2021. FINDINGS: Normal visualized distal tibia and fibula. Normal medial and lateral malleoli. Normal tibiotalar articulation and ankle mortise. Normal visualized talus and calcaneus. The visualized subtalar, talonavicular, calcaneocuboid and tarsal articulations are normal. The soft tissue structures are unremarkable. RAD/Ankle min 3 Views IMPRESSION: Normal x-ray examination of the ankle. Electronically Signed: Joseph Valentine MD at 0:15 EDT , Service support ,
== END 2021-05-05 00:10 | disposition home or self-care (01) ==
PROVIDERS: Emergency Provider Emergency Medicine; PCP Family Medicine
DX: S90.512A Abrasion, left ankle, initial encounter (principal); W45.8XXA Other foreign body or object entering through skin, initial encounter; Y93.9 Activity, unspecified; Y92.009 Unspecified place in unspecified non-institutional (private) residence as the place of occurrence of the external cause; Y99.9 Unspecified external cause status; I10 Essential (primary) hypertension; E07.9 Disorder of thyroid, unspecified; F79 Unspecified intellectual disabilities; Q74.0 Other congenital malformations of upper limb(s), including shoulder girdle; E66.9 Obesity, unspecified; Z79.890 Hormone replacement therapy; Z79.899 Other long term (current) drug therapy
CPT/HCPCS: 73610; 99282

== ENCOUNTER 2021-05-06 16:38 | Emergency (ER) | payer MEDICAID, SELFPAY ==
[2021-05-06 16:38] VITALS: BP 128/76; PULSE 84; RESP 16; TEMP 36.9; O2SAT 98; BMI 31.3
--- NOTE | 2021-05-06 16:43 | RAD_ITS ---
STUDY: X-RAY CHEST REASON FOR EXAM: Female, 20 years old. Cough. TECHNIQUE: Single AP portable view of the chest. COMPARISON: 03/29/2021. FINDINGS: The lungs are hypoexpanded. No acute cardiopulmonary disease or interval change. There is no demonstrated pleural abnormality. Normal size heart. Normal mediastinum and igor. Normal visualized pulmonary arteries. Normal visualized aortic arch and descending thoracic aorta. Normal visualized thoracic spine. Normal visualized ribs, clavicles, and shoulders. There is no demonstrated abnormality of the visualized soft tissue structures of the upper abdomen. RAD/Chest 1 View IMPRESSION: No acute cardiopulmonary disease or interval change. Electronically Signed: Sameer Saxena DO at 16:53 EDT Tel [phone], Service support ,
== END 2021-05-06 18:16 | disposition left against medical advice (07) ==
LOC: ED 18:18
PROVIDERS: PCP Family Medicine
DX: R05 Cough (principal); Z53.21 Procedure and treatment not carried out due to patient leaving prior to being seen by health care provider
CPT/HCPCS: 71045

== ENCOUNTER 2021-05-08 14:29 | Emergency (ER) | payer MEDICAID, SELFPAY ==
[2021-05-08 14:30] VITALS: BP 148/98; PULSE 93; RESP 18; TEMP 35.8; O2SAT 96; BMI 36.9
--- NOTE | 2021-05-08 14:48 | EDS_ITS ---
HPI History of Present Illness Chief Complaint: Fall Detail of Chief Complaint: Fall down steps with injury to left wrist and right ribs Informant: patient Narrative Narrative: Patient presents to the emergency department with her mother after sustaining a fall yesterday. Patient states that she was coming out of the home and fell going down the steps leading to the outside of their house and porch. Patient fell down 3 steps and landed on the concrete porch. No head injury or loss of consciousness. She is now complaining of left wrist pain and pain to the right shoulder blade and posterior right ribs. Denies any shortness of servando ath. Patient does have a slight cough that she has had for about 4 5 days that she believes her allergies. She denies fever. She denies Covid exposures. 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 HTN (hypertension) Injury of left toe Intellectual disability Knee pain Madelung's deformity Nondisplaced fracture of middle phalanx of left lesser toe(s), initial encounter for closed fracture Nondisplaced fracture of proximal phalanx of left lesser toe(s), initial encounter for closed fracture Oppositional defiant disorder Severe headache Thyroid disease Undersocialized conduct disorder, aggressive type, moderate Home Medications norethindrone (contraceptive) 1 tab PO DAILY 01/21/19 [History Last Taken 04/22/19] levothyroxine 75 mcg tablet 1 tab PO DAILY 07/02/20 [History Last Taken Unknown] meclizine 25 mg PO TID PRN #20 tab 01/31/21 [Rx Last Taken Unknown] hydrocodone-acetaminophen 1 tab PO Q6H PRN PRN 3 Days #12 tablet 03/13/21 [Rx Last Taken Unknown] Allergy/AdvReac Type Severity Reaction Status Date / Time amoxicillin [From Augmentin] Allergy Other Verified 05/08/21 14:29 amoxicillin trihydrate Allergy Other Verified 05/08/21 14:29 [From Augmentin] azithromycin Allergy Other Verified 05/08/21 14:29 clavulanic acid Allergy Other Verified 05/08/21 14:29 [From Augmentin] erythromycin base Allergy Unknown Verified 05/08/21 14:29 [From E-Mycin] potassium clavulanate Allergy Other Verified 05/08/21 14:29 [From Augmentin] ibuprofen AdvReac Nausea Verified 05/08/21 14:29 Surgical History History of ear surgery History of eye surgery Social History Smoking Status: Never smoker alcohol intake: never ROS ROS ED Constitutional Constitutional ED: Reports systems reviewed and no addt'l complaints, except as documented; Denies body ache(s), change in weight or chills Eyes Eyes: Denies acute decrease in peripheral vision, change in vision, double vision or loss of vision ENT ENT ED: Reports none; Denies ear pain, lip swelling, loss taste/smell, neck pain, otalgia or sore throat Cardiovascular Cardiovascular: Reports none; Denies abdominal pain, chest pain with activity, leg edema, lightheadedness, palpitations, rapid heart rate or syncope Respiratory/Chest Respiratory/Chest: Reports none; Denies change in mental status, dry cough, dyspnea, hemoptysis, shortness of breath at rest or shortness of breath with exertion Gastrointestinal Gastrointestinal: Reports none; Denies abdominal pain, change in stool charac ter, diarrhea, hematemesis, hematochezia, melena, rectal bleeding or vomiting Genitourinary Genitourinary ED: Reports none; Denies abdominal discomfort, anuria, dysuria, genital pain or polyuria Musculoskeletal Musculoskeletal: Reports none, back pain and other Details: Left wrist pain ; Denies arthralgias, difficulty walking, extremity pain, muscle weakness or myalgias Integumentary Reports none; Denies abscess or rash Neurologic Neurologic: Reports none; Denies abnormal gait, confusion, focal weakness, frequent falls, headache(s), loss of vision, numbness, paresthesias, radicular pain, vertigo or weakness Psychiatric Psychiatric: Reports systems reviewed and no addt'l complaints, except as documented and none; Denies behavioral changes, confusion, difficulty concentrating, hallucinations, suicidal ideation, tactile hallucinations or visual hallucinations Endocrine Endocrinology: Denies none, cold intolerance, excessive sweating, fatigue or heat intolerance Hematologic/Lymphatic Hematologic/Lymphatic: Reports none; Denies anemia, easy bleeding or easy bruising Allergic/Immunologic Allergic/Immunologic ED: Denies as per HPI, none, lip swelling, mouth swelling, throat swelling, tongue swelling or hives EXAM Physical Exam Const Vital Signs: 05/08/21 14:30 05/08/21 15:18 Temperature 96.5 F L Temperature Source Temporal Pulse Rate 93 Respiratory Rate 18 Respiratory Effort Normal Respiratory Depth Normal Respiratory Pattern Normal Blood Pressure 148/98 H Blood Pressure Mean 114 Pulse Ox 96 Oxygen Delivery Method Room Air Room Air Positive well nourished and well developed General Appearance ED: well developed and NAD HEENT Reports TM's clear and moist mucous membranes normocephalic and atraumatic; Negative for trauma or tenderness Tympanic Membrane ED: Yes TM's clear Eyes PERRL and EOMs intact bilaterally General Eye ED: Negative for pale conjunctiva or scleral icterus Neck no lymphadenopathy, supple and no JVD General: Negative for tenderness Chest Wall inspection of chest normal and palpation of chest normal Chest: Negative for tenderness Resp normal respiratory effort and clear to auscultation bilaterally Effort and Inspection: Negative for respiratory distress or pain with movement Auscultation: Negative for rhonchi, wheezes or diminished lung sounds Cardio regular rate, regular rhythm, S1 normal heart sound, S2 normal heart sound and no murmurs Peripheral Pulses: pulses 2+ throughout GI normal to inspection, nondistended, normoactive bowel sounds, soft to palpation, non-tender, non-distended and no masses Back/Spine no CVA tenderness and no thoracic nor lumbar tenderness Back/Spine Narrative: Patient has tenderness palpation over the posterior right ribs without any evidence of ecchymosis or bruising or subcutaneous emphysema. Patient also has some tenderness over the right scapula. Extremity Extremity Narrative: Evaluation of the left wrist reveal some ecchymosis and bruising over the ulnar aspect of the wrist. She has decreased range of motion flexion extension secondary to pain. There is no significant deformity noted. Neurovascularly intact. General Extremety ED: Negative for edema General Extremity: Negative for edema Neuro oriented x3, CN's II-XII intact bilaterally, no sensory deficits noted and gait normal Sensorium / Orientation: awake, alert, oriented to person, oriented to place and oriented to time Motor Exam: strength 5/5 throughout and strength abnormal Psych mental status grossly normal Skin no rashes or lesions noted and no wounds MDM MDM MDM Narrative Medical decision making narrative: Patient will be given an Gene wrap for her wrist. She will take Tylenol for discomfort. She is to follow-up with her primary care physician 5 to 7 days. Radiography Diagnostic Testing: Radiology Impression Ribs w/Chest X-Ray 05/08/21 15:30 IMPRESSION: RIBS: No displaced rib fracture identified. CHEST: Clear lungs. Electronically Signed: Néstor Zamora MD at 16:26 EDT Tel , Service support , Wrist X-Ray 05/08/21 15:30 IMPRESSION: No fracture or dislocation. Electronically Signed: Néstor Zamora MD at 16:26 EDT Tel , Service support , Three-view x-rays of the left wrist obtained interpreted by myself as no acute fractures or dislocations. Radiology in agreement. Patient also had 4 view x- rays of the right ribs and chest x-ray which interpreted by myself showed no fractures with no evidence of pneumothorax. Radiology in agreement. Discharge Plan Triage Chief Complaint: Fall ED Provider: Codie Chu Dx/Rx/DC Orders Clinical Impression: Fall, Back contusion, Contusion of left wrist Instructions: ED Back Contusion, ED Mechanical Fall, ED Contusion, Rib Prescriptions: No Action levothyroxine 75 mcg tablet 1 tab PO DAILY RF: 0 norethindrone (contraceptive) 0.35 MG tablet 1 tab PO DAILY RF: 0 meclizine 25 mg tablet 25 mg PO TID PRN (Reason: vertigo) Qty: 20 RF: 0 hydrocodone-acetaminophen 5-325 mg tablet 1 tab PO Q6H PRN PRN (Reason: Pain) 3 Days Qty: 12 RF: 0 Primary Care Provider: Gregor Trujillo Referrals: Gregor Trujillo MD [Primary Care Provider] - 5-7 Days Disposition Disposition: Home, Self Care
--- NOTE | 2021-05-08 14:53 | CM.ED ---
SOCIAL WORK Referral Source: Self-Referral Reason for Consult: Active ED Care Plan Met with patient and patient's mother in room. 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 Patient reports fell yesterday due to steps being slippery from the rain. Mother states called patient's PCP and was advised to come to ER. Patient and mother aware of ED Care Plan due to utilizing ER as PCP. SW to continue to follow as needed. Nicole Rosen, [employer], WEATHERIZATION DIRECTOR
--- NOTE | 2021-05-08 15:30 | RAD_ITS ---
STUDY: X-RAY - UNILATERAL RIBS ( RIGHT ) WITH CHEST REASON FOR EXAM: Female, 20 years old. Fall TECHNIQUE - RIBS: 4 view(s) of the ribs. TECHNIQUE - CHEST: Frontal view COMPARISON: 05/06/21 FINDINGS - RIBS: There are no displaced rib fractures identified. FINDINGS - CHEST: The lungs are clear. There are no pleural effusions. There is no pneumothorax. The heart is normal in size. RAD/Ribs Uni Min 3V w/PA Chest IMPRESSION: RIBS: No displaced rib fracture identified. CHEST: Clear lungs. Electronically Signed: Néstor Zamora MD at 16:26 EDT Tel , Service support ,
--- NOTE | 2021-05-08 15:30 | RAD_ITS ---
STUDY: X-RAY - LEFT WRIST REASON FOR EXAM: Female, 20 years old. Injury TECHNIQUE: 3 view(s) of the wrist were obtained. COMPARISON: None. FINDINGS: There is no evidence of fracture or dislocation. There are no significant degenerative changes. There are no radiodense foreign bodies. RAD/Wrist min 3 Views IMPRESSION: No fracture or dislocation. Electronically Signed: Néstor Zamora MD at 16:26 EDT Tel , Service support ,
[2021-05-08] MEDS: Acetaminophen 325 MG Tablet 650 MG PO (16:46)
== END 2021-05-08 17:03 | disposition home or self-care (01) ==
PROVIDERS: Emergency Provider Emergency Medicine; PCP Family Medicine
DX: S60.212A Contusion of left wrist, initial encounter (principal); S20.229A Contusion of unspecified back wall of thorax, initial encounter; R07.81 Pleurodynia; W10.9XXA Fall (on) (from) unspecified stairs and steps, initial encounter; Y93.01 Activity, walking, marching and hiking; Y92.009 Unspecified place in unspecified non-institutional (private) residence as the place of occurrence of the external cause; Y99.9 Unspecified external cause status; Z20.822 Contact with and (suspected) exposure to COVID-19; I10 Essential (primary) hypertension; E07.9 Disorder of thyroid, unspecified; D64.9 Anemia, unspecified; R05 Cough; F79 Unspecified intellectual disabilities; Q74.0 Other congenital malformations of upper limb(s), including shoulder girdle; Z79.899 Other long term (current) drug therapy
CPT/HCPCS: 71101; 73110; 87426; 99283

== ENCOUNTER 2021-05-16 23:30 | Emergency (ER) | payer MEDICAID, SELFPAY ==
[2021-05-16 23:31] VITALS: BP 133/90; PULSE 92; RESP 16; TEMP 36.6; O2SAT 97; BMI 41.1
--- NOTE | 2021-05-17 00:42 | EDS_ITS ---
HPI History of Present Illness Chief Complaint: Allergic Reaction Informant: patient and parent Onset/Context/Timing Onset: Yesterday Context: Sudden Onset Timing: Continuous Quality: sore and itchy Location: L hand Current Severity: Mild Maximum Severity: Mild Worsened by: palpation Relieved by: nothing Associated Symptoms Associated Symptoms: redness. no discharge. Narrative Narrative: Frequent visitor to the emergency department for a yellowjacket bee sting to the left hand yesterday that is sore and itchy. Mom is concerned stinger may still be there. No symptoms of anaphylaxis. 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 HTN (hypertension) Injury of left toe Intellectual disability Knee pain Madelung's deformity Nondisplaced fracture of middle phalanx of left lesser toe(s), initial encounter for closed fracture Nondisplaced fracture of proximal phalanx of left lesser toe(s), initial encounter for closed fracture Oppositional defiant disorder Severe headache Thyroid disease Undersocialized conduct disorder, aggressive type, moderate Home Medications norethindrone (contraceptive) 1 tab PO DAILY 01/21/19 [History Last Taken 04/22/19] levothyroxine 75 mcg tablet 1 tab PO DAILY 07/02/20 [History Last Taken Unknown] meclizine 25 mg PO TID PRN #20 tab 01/31/21 [Rx Last Taken Unknown] hydrocodone-acetaminophen 1 tab PO Q6H PRN PRN 3 Days #12 tablet 03/13/21 [Rx Last Taken Unknown] Allergy/AdvReac Type Severity Reaction Status Date / Time amoxicillin [From Augmentin] Allergy Other Verified 05/13/21 17:54 amoxicillin trihydrate Allergy Other Verified 05/13/21 17:54 [From Augmentin] azithromycin Allergy Other Verified 05/13/21 17:54 clavulanic acid Allergy Other Verified 05/13/21 17:54 [From Augmentin] erythromycin base Allergy Unknown Verified 05/13/21 17:54 [From E-Mycin] potassium clavulanate Allergy Other Verified 05/13/21 17:54 [From Augmentin] ibuprofen AdvReac Nausea Verified 05/13/21 17:54 Surgical History History of ear surgery History of eye surgery Social History Smoking Status: Never smoker alcohol intake: never ROS ROS ED Constitutional Constitutional ED: Denies chills or fever(s) Musculoskeletal Musculoskeletal: Reports extremity pain; Denies neck pain Integumentary Reports as per HPI, pruritus and rash; Denies Abrasions or wounds Neurologic Neurologic: Denies paresthesias or weakness EXAM Physical Exam Const Vital Signs: 05/16/21 23:31 Temperature 98 F Temperature Source Temporal Pulse Rate 92 Respiratory Rate 16 Blood Pressure 133/90 H Blood Pressure Mean 104 Pulse Ox 97 Oxygen Delivery Method Room Air Positive well nourished and well developed General Appearance ED: well developed and NAD Neck full ROM and supple Back/Spine normal ROM and normal to inspection Extremity full ROM Extremity Narrative: Sting site near the left thumb metacarpophalangeal joint dorsally, with some surrounding erythema mild tenderness, no lymphangitis or abscess. No stinger or foreign body seen within the small superficial wound. Neuro oriented x3, no focal motor deficits and no sensory deficits noted Sensorium / Orientation: alert Psych mental status grossly normal and thought process normal Skin no wounds Rashes: no rashes MDM MDM MDM Narrative Medical decision making narrative: Reassured, given Tylenol because she has nausea with ibuprofen, I do not think this is infected. I recommend topical hydrocortisone cream if she is having itching, Tylenol and ice as needed for pain, we discussed reasons to return. Discharge Plan Triage Chief Complaint: Allergic Reaction ED Provider: Reji Henderson Dx/Rx/DC Orders Clinical Impression: Sting from hornet, wasp, or bee Instructions: ED Insect Sting, Local Reaction Prescriptions: No Action levothyroxine 75 mcg tablet 1 tab PO DAILY RF: 0 norethindrone (contraceptive) 0.35 MG tablet 1 tab PO DAILY RF: 0 meclizine 25 mg tablet 25 mg PO TID PRN (Reason: vertigo) Qty: 20 RF: 0 hydrocodone-acetaminophen 5-325 mg tablet 1 tab PO Q6H PRN PRN (Reason: Pain) 3 Days Qty: 12 RF: 0 Primary Care Provider: Gregor Trujillo Referrals: Gregor Trujillo MD [Primary Care Provider] - As Needed Activity Restrictions/Additional Instructions: Topical 1% hydrocortisone cream 2-3 times daily to affected area as needed for itching. Ice to affected area and oral Tylenol as needed for discomfort/pain. Return to the ER for fevers or red streaking up the arm. Disposition Disposition: Home, Self Care
[2021-05-17] MEDS: Acetaminophen 500 MG Tablet 1000 MG PO (01:03)
[2021-05-17 01:04] VITALS: BP 133/92; PULSE 90; RESP 18; O2SAT 98
== END 2021-05-17 01:05 | disposition home or self-care (01) ==
LOC: ED 05-17 00:54
PROVIDERS: Emergency Provider Emergency Medicine; PCP Family Medicine
DX: T63.461A Toxic effect of venom of wasps, accidental (unintentional), initial encounter (principal); L29.9 Pruritus, unspecified; Y92.9 Unspecified place or not applicable; I10 Essential (primary) hypertension; Q74.0 Other congenital malformations of upper limb(s), including shoulder girdle; F79 Unspecified intellectual disabilities; Z79.890 Hormone replacement therapy; Z79.899 Other long term (current) drug therapy
CPT/HCPCS: 99283

== ENCOUNTER 2021-06-14 23:30 | Emergency (ER) | payer MEDICAID, SELFPAY ==
[2021-06-14 23:30] VITALS: BP 131/82; PULSE 91; RESP 16; TEMP 36.3; O2SAT 96; BMI 41.1
--- NOTE | 2021-06-14 23:39 | EX.ED.DYSGE1 ---
HPI History of Present Illness Chief Complaint: Rash Informant: patient Onset/Context/Timing Onset: Yesterday Context: Gradual Onset Timing: Continuous Quality: Erythematous Location: Right breast Worsened by: Sitting Relieved by: Nothing Narrative Narrative: Patient presents with a rash under her right breast that began yesterday. Patient denies any fevers or chills. Patient states she has had some nausea and vomiting. Patient denies any discharge or drainage. Patient states it is worse whenever she sits back. Patient denies any new soaps, laundry detergents, fabric softeners, or other new exposures. 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 HTN (hypertension) Injury of left toe Intellectual disability Knee pain Madelung's deformity Nondisplaced fracture of middle phalanx of left lesser toe(s), initial encounter for closed fracture Nondisplaced fracture of proximal phalanx of left lesser toe(s), initial encounter for closed fracture Oppositional defiant disorder Severe headache Thyroid disease Undersocialized conduct disorder, aggressive type, moderate Home Medications norethindrone (contraceptive) 1 tab PO DAILY 01/21/19 [History Last Taken 04/22/19] levothyroxine 75 mcg tablet 1 tab PO DAILY 07/02/20 [History Last Taken Unknown] meclizine 25 mg PO TID PRN #20 tab 01/31/21 [Rx Last Taken Unknown] hydrocodone-acetaminophen 1 tab PO Q6H PRN PRN 3 Days #12 tablet 03/13/21 [Rx Last Taken Unknown] clotrimazole 1 applic TOPICAL BID #15 g 06/15/21 [Rx Last Taken Unknown] Allergy/AdvReac Type Severity Reaction Status Date / Time amoxicillin [From Augmentin] Allergy Other Verified 05/13/21 17:54 amoxicillin trihydrate Allergy Other Verified 05/13/21 17:54 [From Augmentin] azithromycin Allergy Other Verified 05/13/21 17:54 clavulanic acid Allergy Other Verified 05/13/21 17:54 [From Augmentin] erythromycin base Allergy Unknown Verified 05/13/21 17:54 [From E-Mycin] potassium clavulanate Allergy Other Verified 05/13/21 17:54 [From Augmentin] ibuprofen AdvReac Nausea Verified 05/13/21 17:54 Surgical History History of ear surgery History of eye surgery Social History Smoking Status: Never smoker alcohol intake: never ROS ROS ED Constitutional Constitutional ED: Denies chills or fever(s) Eyes Eyes: Denies blurry vision or change in vision ENT ENT ED: Denies rhinorrhea or sore throat Cardiovascular Cardiovascular: Denies chest pain or palpitations Respiratory/Chest Respiratory/Chest: Denies cough or dyspnea Gastrointestinal Gastrointestinal: Reports nausea and vomiting Genitourinary Genitourinary ED: Denies dysuria or hematuria Musculoskeletal Musculoskeletal: Denies back pain or neck pain Integumentary Reports rash; Denies abscess Neurologic Neurologic: Denies headache(s) or weakness Allergic/Immunologic Allergic/Immunologic ED: Denies mouth swelling or urticaria EXAM Physical Exam Const Vital Signs: 06/14/21 23:30 Temperature 97.4 F L Temperature Source Temporal Pulse Rate 91 Respiratory Rate 16 Blood Pressure 131/82 H Blood Pressure Mean 98 Pulse Ox 96 Oxygen Delivery Method Room Air Positive well nourished and well developed General Appearance ED: well developed HEENT Reports moist mucous membranes Neck supple and no JVD Resp normal respiratory effort and clear to auscultation bilaterally Cardio regular rate, regular rhythm and no murmurs GI normal to inspection, nondistended, normoactive bowel sounds and non-tender Palpation: soft Extremity normal to inspection General Extremety ED: Negative for edema or tenderness General Extremity: Negative for edema Neuro oriented x3, CN's II-XII intact bilaterally and no sensory deficits noted Sensorium / Orientation: alert Motor Exam: strength 5/5 throughout Psych mental status grossly normal Skin Skin Narrative: The rash appears to be consistent with candidiasis. Rashes: rashes noted Right breast macule Under right breast erythematous Yes soft smooth other MDM MDM MDM Narrative Medical decision making narrative: Rashes consistent with candidiasis. Patient was given a prescription for an antifungal cream. Patient was instructed to follow-up with her primary care physician in 5 to 7 days. Patient understood and was agreeable with the plan. All questions were answered. Discharge Plan Triage Chief Complaint: Rash ED Provider: Shaheen Arnett Dx/Rx/DC Orders Clinical Impression: Tinea corporis Instructions: ED Lenka Skin Infection (Adult) Prescriptions: New clotrimazole 1 % cream 1 applic topical BID Qty: 15 RF: 0 No Action levothyroxine 75 mcg tablet 1 tab PO DAILY RF: 0 norethindrone (contraceptive) 0.35 MG tablet 1 tab PO DAILY RF: 0 meclizine 25 mg tablet 25 mg PO TID PRN (Reason: vertigo) Qty: 20 RF: 0 hydrocodone-acetaminophen 5-325 mg tablet 1 tab PO Q6H PRN PRN (Reason: Pain) 3 Days Qty: 12 RF: 0 Primary Care Provider: Gregor Trujillo Referrals: Gregor Trujillo MD [Primary Care Provider] - 5-7 Days Disposition Disposition: Home, Self Care
[2021-06-15 01:23] VITALS: RESP 18
== END 2021-06-15 01:26 | disposition home or self-care (01) ==
PROVIDERS: Emergency Provider Emergency Medicine; PCP Family Medicine
DX: B35.4 Tinea corporis (principal); R11.2 Nausea with vomiting, unspecified; I10 Essential (primary) hypertension; E07.9 Disorder of thyroid, unspecified; F79 Unspecified intellectual disabilities; Q74.0 Other congenital malformations of upper limb(s), including shoulder girdle; Z79.3 Long term (current) use of hormonal contraceptives; Z79.890 Hormone replacement therapy; Z79.899 Other long term (current) drug therapy
CPT/HCPCS: 99282

== ENCOUNTER 2021-06-18 01:14 | Emergency (ER) | payer MEDICAID, SELFPAY ==
[2021-06-18 01:17] VITALS: BP 158/97; PULSE 96; RESP 16; TEMP 36.8; O2SAT 98; BMI 43.2
--- NOTE | 2021-06-18 01:34 | RAD_ITS ---
EXAM: XR LEFT KNEE COMPLETE, 4 OR MORE VIEWS : 2000 CLINICAL INDICATION: trauma TECHNIQUE: Four or more views of the left knee. This report was created using [employer] report generation technology. COMPARISON: None. FINDINGS: BONES/JOINTS: Unremarkable. No acute fracture. No subluxation. Normal alignment. Preservation of the joint space. No sclerotic or destructive changes observed. SOFT TISSUES: Unremarkable. No soft tissue swelling or gas. No radiopaque foreign body. RAD/Knee 4 or More Views IMPRESSION: Negative left knee x-rays. at 0214 Reported and signed by: Deepak Gonzalez MD Electronically Signed: Deepak Gonzalez MD at 2:13 EDT Tel , Service support ,
--- NOTE | 2021-06-18 01:36 | EX.ED.DYSGE1 ---
HPI History of Present Illness Chief Complaint: Other, Pain/Inj Informant: patient Narrative Narrative: Patient comes in with soreness to the front of her left knee and the anterior lateral left webb area. She states she fell about 2 weeks ago and hurt the webb. Its been sore ever since. She did see her doctor. They thought this was likely a contusion. There was questions of an outpatient ultrasound but she does not know if this is being done. She states earlier today she did fall and hit the left knee. This was a mechanical trip and fall. Not syncopal. She did not hit her head. Nothing makes her symptoms better. Pressing on the areas make them worse. She is not short of breath or having chest pain. There has not been any syncope. There has not been any travel surgery immobilization personal or family history of DVT or PE. 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 HTN (hypertension) Injury of left toe Intellectual disability Knee pain Madelung's deformity Nondisplaced fracture of middle phalanx of left lesser toe(s), initial encounter for closed fracture Nondisplaced fracture of proximal phalanx of left lesser toe(s), initial encounter for closed fracture Oppositional defiant disorder Severe headache Thyroid disease Undersocialized conduct disorder, aggressive type, moderate Home Medications norethindrone (contraceptive) 1 tab PO DAILY 01/21/19 [History Last Taken 04/22/19] levothyroxine 75 mcg tablet 1 tab PO DAILY 07/02/20 [History Last Taken Unknown] meclizine 25 mg PO TID PRN #20 tab 01/31/21 [Rx Last Taken Unknown] clotrimazole 1 applic TOPICAL BID #15 g 06/15/21 [Rx Last Taken Unknown] Allergy/AdvReac Type Severity Reaction Status Date / Time amoxicillin [From Augmentin] Allergy Other Verified 06/18/21 01:15 amoxicillin trihydrate Allergy Other Verified 06/18/21 01:15 [From Augmentin] azithromycin Allergy Other Verified 06/18/21 01:15 clavulanic acid Allergy Other Verified 06/18/21 01:15 [From Augmentin] erythromycin base Allergy Unknown Verified 06/18/21 01:15 [From E-Mycin] potassium clavulanate Allergy Other Verified 06/18/21 01:15 [From Augmentin] ibuprofen AdvReac Nausea Verified 06/18/21 01:15 Surgical History History of ear surgery History of eye surgery Social History Smoking Status: Never smoker alcohol intake: never ROS ROS ED Constitutional Constitutional ED: Denies chills or fever(s) Cardiovascular Cardiovascular: Denies chest pain, palpitations or racing heartbeat Respiratory/Chest Respiratory/Chest: Denies cough or dyspnea Gastrointestinal Gastrointestinal: Denies nausea or vomiting Musculoskeletal Musculoskeletal: Reports other Details: See history of present illness. Integumentary Denies rash Neurologic Neurologic: Denies paresthesias or weakness EXAM Physical Exam Const Vital Signs: 06/18/21 01:17 Temperature 98.2 F Temperature Source Oral Pulse Rate 96 Respiratory Rate 16 Respiratory Effort Normal Respiratory Pattern Normal Blood Pressure 158/97 H Blood Pressure Mean 117 Pulse Ox 98 Oxygen Delivery Method Room Air Positive well nourished, well developed and obese General Appearance ED: well developed and NAD Nutritional Appearance: obese HEENT Reports moist mucous membranes Eyes General Eye ED: Negative for scleral icterus Resp normal respiratory effort and clear to auscultation bilaterally Effort and Inspection: Negative for pain with movement Auscultation: Negative for rales, rhonchi or wheezes Cardio regular rate and regular rhythm GI normal to inspection, nondistended, normoactive bowel sounds and non-tender Palpation: soft Back/Spine no CVA tenderness Extremity Extremity Narrative: Patient has some mild tenderness to the patella lateral aspect on the left knee. No effusion. No deformity. Good range of motion. She also has some mild tenderness in the anterior lateral compartment of the left leg. This is not calf tenderness. There is no cord. There is no asymmetry. There is no distended veins. No erythema or warmth. Skin no rashes or lesions noted MDM MDM MDM Narrative Medical decision making narrative: X-rays show no fracture. I think this patient is very low risk for DVT. She has a Wells criteria of -2. I do not think this justifies Lovenox pending an outpatient ultrasound. I will put in for this ultrasound. She is okay to go home at this time. Radiography Diagnostic Testing: Radiology Impression Knee X-Ray 06/18/21 01:34 IMPRESSION: Negative left knee x-rays. at 0214 Reported and signed by: Deepak Gonzalez MD Electronically Signed: Deepak Gonzalez MD at 2:13 EDT Tel , Service support , Discharge Plan Triage Chief Complaint: Other, Pain/Inj ED Provider: Mike Lombardo Dx/Rx/DC Orders Clinical Impression: Contusion of left leg, Contusion of left knee Instructions: Bruises (Contusions) Prescriptions: No Action levothyroxine 75 mcg tablet 1 tab PO DAILY RF: 0 norethindrone (contraceptive) 0.35 MG tablet 1 tab PO DAILY RF: 0 meclizine 25 mg tablet 25 mg PO TID PRN (Reason: vertigo) Qty: 20 RF: 0 clotrimazole 1 % cream 1 applic topical BID Qty: 15 RF: 0 Primary Care Provider: Gregor Trujillo Referrals: Gregor Trujillo MD [Primary Care Provider] - 3-5 Days Activity Restrictions/Additional Instructions: An outpatient ultrasound has been ordered. You will be called within 24 hours. Please see the attached information sheets also. Disposition Disposition: Home, Self Care
== END 2021-06-18 02:48 | disposition home or self-care (01) ==
PROVIDERS: Emergency Provider Emergency Medicine; PCP Family Medicine
DX: S80.02XA Contusion of left knee, initial encounter (principal); S80.12XA Contusion of left lower leg, initial encounter; W01.0XXA Fall on same level from slipping, tripping and stumbling without subsequent striking against object, initial encounter; Y93.9 Activity, unspecified; Y92.9 Unspecified place or not applicable; Y99.9 Unspecified external cause status; I10 Essential (primary) hypertension; E07.9 Disorder of thyroid, unspecified; Q74.0 Other congenital malformations of upper limb(s), including shoulder girdle; F79 Unspecified intellectual disabilities; Z79.890 Hormone replacement therapy; Z79.3 Long term (current) use of hormonal contraceptives; Z79.899 Other long term (current) drug therapy
CPT/HCPCS: 73564

== ENCOUNTER → 2021-06-18 13:29 | Outpatient (CLI) | payer MEDICAID, SELFPAY ==
--- NOTE | 2021-06-18 13:32 | VDLE_ITS ---
Reason For Study: Lump in leg Procedure LEFT This is a venous duplex using B-mode, color GSV is normal. flow and spectral Doppler. CFV is compressible, spontaneous, phasic, Exam performed in department. competent, and demonstrates normal A preliminary report was called and/or faxed augmentation. to PCP: Cassandra. FV is compressible, spontaneous, phasic, competent and demonstrates normal augmentation. POP V is compressible, spontaneous, phasic, competent and demonstrates normal augmentation. T/P Trunk is compressible. PTV is compressible. LT PerV is compressible. VL/Venous Duplex US, Unilateral Interpretation Summary Deep veins of the left lower extremity are patent and compressible segmentally. There is no evidence of left lower extremity deep vein thrombosis. Valvular competence appears intac t within the proximal deep venous system on the left . The left great saphenous vein appears patent a nd compressible segmentally. Ordering Physician: Mike Lombardo Referring Physician: MD Cassandra Gregor Performed By: Rocio Glez, RVT
== END ==
PROVIDERS: PCP Family Medicine; Referring Provider Emergency Medicine; Visit Provider Emergency Medicine
DX: M79.605 Pain in left leg (principal); S80.02XA Contusion of left knee, initial encounter; S80.12XA Contusion of left lower leg, initial encounter; W01.0XXA Fall on same level from slipping, tripping and stumbling without subsequent striking against object, initial encounter; Y93.9 Activity, unspecified; Y92.9 Unspecified place or not applicable; Y99.9 Unspecified external cause status; I10 Essential (primary) hypertension; E07.9 Disorder of thyroid, unspecified; Q74.0 Other congenital malformations of upper limb(s), including shoulder girdle; F79 Unspecified intellectual disabilities; Z79.890 Hormone replacement therapy; Z79.3 Long term (current) use of hormonal contraceptives; Z79.899 Other long term (current) drug therapy
CPT/HCPCS: 73564; 93971; 99282

== ENCOUNTER 2021-06-24 20:05 | Emergency (ER) | payer MEDICAID, SELFPAY ==
[2021-06-24 20:06] VITALS: BP 134/96; PULSE 76; RESP 18; TEMP 36.3; O2SAT 98; BMI 37.0
--- NOTE | 2021-06-24 21:33 | RAD_ITS ---
STUDY: X-RAY - RIGHT KNEE REASON FOR EXAM: Female, 20 years old. Injury/Pain TECHNIQUE: 4 view(s) of the knee. COMPARISON: None. FINDINGS: Normal visualized distal femur. Normal visualized proximal tibia and fibula. Normal proximal tibiofibular articulation. Normal medial femorotibial compartment. Normal lateral femorotibial compartment. Normal patellofemoral articulation. The soft tissue structures are unremarkable. RAD/Knee 4 or More Views IMPRESSION: Normal x-ray examination of the knee. Electronically Signed: Victor Hugo Huntley MD at 22:17 EDT , Service support ,
--- NOTE | 2021-06-24 21:35 | ED.VIS.LOWEX ---
HPI History of Present Illness Chief Complaint: Lower Extremity Injury Detail of Chief Complaint: Right knee pain status post fall Informant: patient Occured/Mechanism Mechanism/Context: Yes blunt trauma and Yes same level fall Comment: Pain anterior right knee Onset/Context/Timing Onset: Days (Injury occurred 3 days ago) Context: Sudden Onset Timing: Continuous Quality of Pain: Dull, Aching and Throbbing Current Severity: Mild Maximum Severity: Moderate Worsened by: Use of right lower extremity Relieved by: Nothing Associated Symptoms Associated Symptoms: Negative for Parasthesia, Weakness and Loss of Funtion Narrative Narrative: Patient is a 20-year-old female who presents because of right knee pain after fall. She is not certain how she landed. She localizes pain anteriorly. She denies paresthesia, anesthesia medics. She denies any other injury. 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 HTN (hypertension) Injury of left toe Intellectual disability Knee pain Madelung's deformity Nondisplaced fracture of middle phalanx of left lesser toe(s), initial encounter for closed fracture Nondisplaced fracture of proximal phalanx of left lesser toe(s), initial encounter for closed fracture Oppositional defiant disorder Severe headache Thyroid disease Undersocialized conduct disorder, aggressive type, moderate Home Medications norethindrone (contraceptive) 1 tab PO DAILY 01/21/19 [History Last Taken 04/22/19] levothyroxine 75 mcg tablet 1 tab PO DAILY 07/02/20 [History Last Taken Unknown] meclizine 25 mg PO TID PRN #20 tab 01/31/21 [Rx Last Taken Unknown] clotrimazole 1 applic TOPICAL BID #15 g 06/15/21 [Rx Last Taken Unknown] Allergy/AdvReac Type Severity Reaction Status Date / Time amoxicillin [From Augmentin] Allergy Other Verified 06/24/21 20:08 amoxicillin trihydrate Allergy Other Verified 06/24/21 20:08 [From Augmentin] azithromycin Allergy Other Verified 06/24/21 20:08 clavulanic acid Allergy Other Verified 06/24/21 20:08 [From Augmentin] erythromycin base Allergy Unknown Verified 06/24/21 20:08 [From E-Mycin] potassium clavulanate Allergy Other Verified 06/24/21 20:08 [From Augmentin] ibuprofen AdvReac Nausea Verified 06/24/21 20:08 Surgical History History of ear surgery History of eye surgery Social History (Updated 06/24/21 @ 21:[address] Jerson Gustafson MD) household members: other details: Lives with her grandmother Smoking Status: Never smoker alcohol intake: never substance use type: does not use ROS ROS ED Cardiovascular Cardiovascular: Denies chest pain Respiratory/Chest Respiratory/Chest: Denies dyspnea Gastrointestinal Gastrointestinal: Denies abdominal pain, nausea or vomiting Genitourinary Genitourinary ED: Denies hematuria Musculoskeletal Musculoskeletal: Reports other Details: Right knee pain ; Denies arthralgias, back pain, myalgias or neck pain Integumentary Denies Abrasions or rash Neurologic Neurologic: Denies paresthesias or weakness Hematologic/Lymphatic Hematologic/Lymphatic: Denies easy bleeding or easy bruising EXAM Physical Exam Const Vital Signs: 06/24/21 20:06 Temperature 97.4 F L Temperature Source Temporal Pulse Rate 76 Respiratory Rate 18 Blood Pressure 134/96 H Blood Pressure Mean 108 Pulse Ox 98 Oxygen Delivery Method Room Air Positive well nourished, well developed and obese General Appearance ED: well developed and NAD Nutritional Appearance: obese HEENT normocephalic and atraumatic Eyes PERRL Eyes Narrative: Extraocular muscle intact Neck full ROM and supple Chest Wall inspection of chest normal Resp normal respiratory effort Cardio regular rate and regular rhythm Extremity normal to inspection and full ROM Extremity Narrative: There is pain the patient of the patella. The patellas not blottable. There is no effusion. There is no lax with varus valgus stress testing. Mai's tests are modified Jeremias's tests are negative. She is able to extend 180 degrees. Is able to flex to approximately 100 degrees. She complains of pain in the popliteal fossa. General Extremety ED: Yes weight-bearing difficulty; Negative for cyanosis or edema General Extremity: weight-bearing difficulty; Negative for cyanosis or edema Neuro oriented x3, CN's II-XII intact bilaterally and moves all extremities Sensorium / Orientation: alert Psych mental status grossly normal Skin no wounds Lesions: no lesions Rashes: no rashes MDM MDM MDM Narrative Medical decision making narrative: X-ray was obtained to evaluate for contusion versus fracture. Radiography Diagnostic Testin view x-ray of the left knee interpreted by me as negative. There is no fracture or effusion noted. X-ray was interpreted by me at 10/29/2008 Discharge Plan Triage Chief Complaint: Lower Extremity Injury ED Provider: Jerson Gustafson Dx/Rx/DC Orders Clinical Impression: Strain of knee and leg, right Instructions: ED Knee Sprain Prescriptions: No Action levothyroxine 75 mcg tablet 1 tab PO DAILY RF: 0 norethindrone (contraceptive) 0.35 MG tablet 1 tab PO DAILY RF: 0 meclizine 25 mg tablet 25 mg PO TID PRN (Reason: vertigo) Qty: 20 RF: 0 clotrimazole 1 % cream 1 applic topical BID Qty: 15 RF: 0 Primary Care Provider: Gregor Trujillo Referrals: Gregor Trujillo MD [Primary Care Provider] - 1 Week if not improving Activity Restrictions/Additional Instructions: 1. Apply ice 6-8 times a day to your right knee 2. Take either ibuprofen or Aleve for your pain Disposition Disposition: Home, Self Care
[2021-06-24 22:18] VITALS: PULSE 78; RESP 14; O2SAT 98
== END 2021-06-24 22:19 | disposition home or self-care (01) ==
PROVIDERS: Emergency Provider Emergency Medicine; PCP Family Medicine
DX: S86.911A Strain of unspecified muscle(s) and tendon(s) at lower leg level, right leg, initial encounter (principal); W18.30XA Fall on same level, unspecified, initial encounter; Y93.9 Activity, unspecified; Y92.9 Unspecified place or not applicable; Y99.9 Unspecified external cause status; I10 Essential (primary) hypertension; E07.9 Disorder of thyroid, unspecified; Q74.0 Other congenital malformations of upper limb(s), including shoulder girdle; F79 Unspecified intellectual disabilities; E66.9 Obesity, unspecified; Z79.3 Long term (current) use of hormonal contraceptives; Z79.890 Hormone replacement therapy; Z79.899 Other long term (current) drug therapy
CPT/HCPCS: 73564; 99282

== ENCOUNTER 2021-07-01 00:26 | Emergency (ER) | payer MEDICAID, SELFPAY ==
[2021-07-01 00:31] VITALS: BP 132/89; PULSE 94; RESP 18; TEMP 36; O2SAT 96; BMI 40.2
[2021-07-01] MEDS: Doxycycline 100 MG CAPSULE PO (00:59)
--- NOTE | 2021-07-01 01:00 | EX.ED.GENINJ ---
HPI History of Present Illness Chief Complaint: Bite Informant: patient Narrative Narrative: Patient presents with mother evaluation dog bite this evening. She states her uncle moved in with them, they currently have 13 dogs and one rabbit. Reports and the mother dog was going after one of the other dogs, she was pulling them apart. States she had bit on her right lower leg, also states bit on the left upper forehead. Her tetanus was recently. Allergies to Augmentin. No anticoagulation medicines. Bleeding controlled. 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 HTN (hypertension) Injury of left toe Intellectual disability Knee pain Madelung's deformity Nondisplaced fracture of middle phalanx of left lesser toe(s), initial encounter for closed fracture Nondisplaced fracture of proximal phalanx of left lesser toe(s), initial encounter for closed fracture Oppositional defiant disorder Severe headache Thyroid disease Undersocialized conduct disorder, aggressive type, moderate Home Medications norethindrone (contraceptive) 1 tab PO DAILY 01/21/19 [History Last Taken 04/22/19] levothyroxine 75 mcg tablet 1 tab PO DAILY 07/02/20 [History Last Taken Unknown] meclizine 25 mg PO TID PRN #20 tab 01/31/21 [Rx Last Taken Unknown] clotrimazole 1 applic TOPICAL BID #15 g 06/15/21 [Rx Last Taken Unknown] doxycycline hyclate 100 mg PO BID #14 cap 07/01/21 [Rx Last Taken Unknown] Allergy/AdvReac Type Severity Reaction Status Date / Time amoxicillin [From Augmentin] Allergy Other Verified 07/01/21 00:33 amoxicillin trihydrate Allergy Other Verified 07/01/21 00:33 [From Augmentin] azithromycin Allergy Other Verified 07/01/21 00:33 clavulanic acid Allergy Other Verified 07/01/21 00:33 [From Augmentin] erythromycin base Allergy Unknown Verified 07/01/21 00:33 [From E-Mycin] potassium clavulanate Allergy Other Verified 07/01/21 00:33 [From Augmentin] ibuprofen AdvReac Nausea Verified 07/01/21 00:33 Surgical History History of ear surgery History of eye surgery Social History household members: other details: Lives with her grandmother Smoking Status: Never smoker alcohol intake: never substance use type: does not use ROS ROS ED Constitutional Constitutional ED: Denies chills, fever(s) or sweats Eyes Eyes: Denies change in vision ENT ENT ED: Denies dysphagia or sore throat Cardiovascular Cardiovascular: Denies chest pain, leg edema, palpitations or racing heartbeat Respiratory/Chest Respiratory/Chest: Denies cough, dyspnea or dyspnea on exertion Gastrointestinal Gastrointestinal: Denies abdominal pain, diarrhea, nausea or vomiting Genitourinary Genitourinary ED: Denies dysuria, hematuria or urinary frequency Musculoskeletal Musculoskeletal: Denies back pain, extremity pain or neck pain Integumentary Reports other Details: Dog bite ; Denies rash or wounds Neurologic Neurologic: Denies headache(s), paresthesias or weakness EXAM Physical Exam Const Vital Signs: 07/01/21 00:31 Temperature 96.8 F L Temperature Source Temporal Pulse Rate 94 Respiratory Rate 18 Blood Pressure 132/89 H Blood Pressure Mean 103 Pulse Ox 96 Oxygen Delivery Method Room Air Positive well nourished and well developed Constitutional Narrative: GCS 15 General Appearance ED: well developed and NAD HEENT Reports moist mucous membranes HEENT Narrative: Superficial abrasion left forehead above the brow, 1 small puncture was noted medial aspect of the upper brow. There is no active bleeding. normocephalic Eyes PERRL, EOMs intact bilaterally and conjunctivae normal General Eye ED: Yes normal appearance of both eyes Neck no lymphadenopathy and supple General: Negative for tenderness Chest Wall Chest: Negative for tenderness Resp normal respiratory effort and normal air movement Effort and Inspection: symmetric chest movement; Negative for respiratory distress Cardio regular rate, regular rhythm and no murmurs Peripheral Pulses: pulses 2+ throughout GI normal to inspection, nondistended, normoactive bowel sounds and non-tender Palpation: Negative for guarding or rebound tenderness present Back/Spine no CVA tenderness and no thoracic nor lumbar tenderness Extremity Extremity Narrative: Right lower extremity: Multiple areas of abrasion lateral leg and posteriorly, there is no lacerations or punctures. No active bleeding. Pulses intact distally. General Extremety ED: Negative for edema or tenderness General Extremity: Negative for edema Neuro oriented x3 and no sensory deficits noted Sensorium / Orientation: awake and alert Skin Skin Narrative: See above MDM MDM MDM Narrative Medical decision making narrative: Patient with superficial wounds with abrasion. There is no active bleeding. Allergy to Augmentin. Treated with doxycycline in the ED. Wound care discussed. Prescription antibiotic sent to her pharmacy. She used Tylenol before she came. Declined any additional meds. Discharged with outpatient follow-up. All questions were answered. Discharge Plan Triage Chief Complaint: Bite ED Provider: Christian Crotez Dx/Rx/DC Orders Clinical Impression: Dog bite, Abrasion head, Abrasion of leg, right Instructions: Animal Bites and Scratches, ED Dog Bite Prescriptions: New doxycycline hyclate 100 mg capsule 100 mg PO BID Qty: 14 RF: 0 No Action levothyroxine 75 mcg tablet 1 tab PO DAILY RF: 0 norethindrone (contraceptive) 0.35 MG tablet 1 tab PO DAILY RF: 0 meclizine 25 mg tablet 25 mg PO TID PRN (Reason: vertigo) Qty: 20 RF: 0 clotrimazole 1 % cream 1 applic topical BID Qty: 15 RF: 0 Primary Care Provider: Gregor Trujillo Referrals: Gregor Trujillo MD [Primary Care Provider] - 1 Week Disposition Disposition: Home, Self Care
== END 2021-07-01 01:13 | disposition home or self-care (01) ==
LOC: ED 01:09
PROVIDERS: Emergency Provider Emergency Medicine; PCP Family Medicine
DX: S00.81XA Abrasion of other part of head, initial encounter (principal); S80.811A Abrasion, right lower leg, initial encounter; W54.0XXA Bitten by dog, initial encounter; Y93.9 Activity, unspecified; Y92.9 Unspecified place or not applicable; Y99.9 Unspecified external cause status; I10 Essential (primary) hypertension; E07.9 Disorder of thyroid, unspecified; Z79.890 Hormone replacement therapy; Q74.0 Other congenital malformations of upper limb(s), including shoulder girdle
CPT/HCPCS: 99283

== ENCOUNTER 2021-07-09 19:07 | Emergency (ER) | payer MEDICAID, SELFPAY ==
[2021-07-09 19:08] VITALS: BP 134/99; PULSE 91; RESP 18; TEMP 36.4; O2SAT 99; BMI 41.1
--- NOTE | 2021-07-09 22:07 | RAD_ITS ---
STUDY: X-RAY - LEFT WRIST REASON FOR EXAM: Female, 20 years old. injury Generalized left wrist pain. TECHNIQUE: 3 view(s) of the wrist were obtained. COMPARISON: None. FINDINGS: Normal visualized distal radius and ulna. Normal radiocarpal articulation. Normal distal radioulnar articulation. Normal carpal bones. Normal carpal articulations. Normal carpometacarpal articulation of the thumb. Normal second through fifth carpometacarpal articulations. Normal visualized metacarpal bones. Mild soft tissue swelling is present in the forearm and wrist. There is no demonstrated acute fracture. RAD/Wrist min 3 Views IMPRESSION: Mild soft tissue swelling Electronically Signed: Pako Baker MD at 22:43 EDT , Service support ,
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
== END 2021-07-09 23:09 | disposition home or self-care (01) ==
PROVIDERS: Emergency Provider Emergency Medicine; PCP Family Medicine
DX: S60.212A Contusion of left wrist, initial encounter (principal); Y00.XXXA Assault by blunt object, initial encounter; Y93.9 Activity, unspecified; Y92.9 Unspecified place or not applicable; Y99.9 Unspecified external cause status; I10 Essential (primary) hypertension; E07.9 Disorder of thyroid, unspecified; Q74.0 Other congenital malformations of upper limb(s), including shoulder girdle; F79 Unspecified intellectual disabilities; Z79.3 Long term (current) use of hormonal contraceptives; Z79.890 Hormone replacement therapy; Z79.899 Other long term (current) drug therapy
CPT/HCPCS: 73110; 99282

== ENCOUNTER 2021-07-21 21:00 | Emergency (ER) | payer MEDICAID, SELFPAY ==
[2021-07-21 21:03] VITALS: BP 137/102; PULSE 110; RESP 16; TEMP 35.8; O2SAT 96; BMI 43.0
--- NOTE | 2021-07-21 21:33 | RAD_ITS ---
HISTORY: trauma pain EXAMINATION/TECHNIQUE: XR Foot Min 3 Views: Left COMPARISON: None FINDINGS: SOFT TISSUES: No significant soft tissue swelling. No radiopaque foreign body identified. BONES/JOINTS: No acute fracture or subluxation. Normal alignment. Preservation of the joint spaces. No suspicious osseous lesion. RAD/Foot min 3 Views IMPRESSION: Negative left foot. at 2216 Reported and signed by: Gregor Lozada MD Electronically Signed: Gregor Lozada MD at 22:14 EDT Tel , Service support ,
--- NOTE | 2021-07-21 21:33 | RAD_ITS ---
HISTORY: trauma pain EXAMINATION/TECHNIQUE: XR Humerus Min 2 Views: Right COMPARISON: None FINDINGS: SOFT TISSUES: No significant soft tissue swelling. No radiopaque foreign body identified. BONES/JOINTS: No acute fracture or subluxation. Normal alignment. Preservation of the joint spaces. No suspicious osseous lesion. RAD/Humerus min 2 Views IMPRESSION: Negative right humerus. at 2221 Reported and signed by: Gregor Lozada MD Electronically Signed: Gregor Lozada MD at 22:19 EDT Tel , Service support ,
--- NOTE | 2021-07-21 21:34 | EDS_ITS ---
HPI History of Present Illness Chief Complaint: Fall Informant: patient Narrative Narrative: Patient states she slipped on the monitor earlier today. She hurt her right upper arm and her left small toe. Denies hitting head or losing consciousness. This was a mechanical fall and was not syncope. Motion or touching makes the pain worse and rest makes it better. No other injury than these 2 spots. 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 HTN (hypertension) Injury of left toe Intellectual disability Knee pain Madelung's deformity Nondisplaced fracture of middle phalanx of left lesser toe(s), initial encounter for closed fracture Nondisplaced fracture of proximal phalanx of left lesser toe(s), initial encounter for closed fracture Oppositional defiant disorder Severe headache Thyroid disease Undersocialized conduct disorder, aggressive type, moderate Home Medications norethindrone (contraceptive) 1 tab PO DAILY 01/21/19 [History Last Taken 04/22/19] levothyroxine 75 mcg tablet 1 tab PO DAILY 07/02/20 [History Last Taken Unknown] meclizine 25 mg PO TID PRN #20 tab 01/31/21 [Rx Last Taken Unknown] clotrimazole 1 applic TOPICAL BID #15 g 06/15/21 [Rx Last Taken Unknown] doxycycline hyclate 100 mg PO BID #14 cap 07/01/21 [Rx Last Taken Unknown] Allergy/AdvReac Type Severity Reaction Status Date / Time amoxicillin [From Augmentin] Allergy Other Verified 07/21/21 21:01 amoxicillin trihydrate Allergy Other Verified 07/21/21 21:01 [From Augmentin] azithromycin Allergy Other Verified 07/21/21 21:01 clavulanic acid Allergy Other Verified 07/21/21 21:01 [From Augmentin] erythromycin base Allergy Unknown Verified 07/21/21 21:01 [From E-Mycin] potassium clavulanate Allergy Other Verified 07/21/21 21:01 [From Augmentin] ibuprofen AdvReac Nausea Verified 07/21/21 21:01 Surgical History History of ear surgery History of eye surgery Social History household members: other details: Lives with her grandmother Smoking Status: Never smoker alcohol intake: never substance use type: does not use ROS ROS ED Eyes Eyes: Denies blurry vision Respiratory/Chest Respiratory/Chest: Denies dyspnea Gastrointestinal Gastrointestinal: Denies nausea or vomiting Musculoskeletal Musculoskeletal: Reports other Details: See history of present illness. ; Denies back pain or neck pain Integumentary Denies abscess, Abrasions or rash Neurologic Neurologic: Denies headache(s), paresthesias or weakness Hematologic/Lymphatic Hematologic/Lymphatic: Denies easy bleeding or easy bruising EXAM Physical Exam Const Vital Signs: 07/21/21 21:03 Temperature 96.5 F L Temperature Source Temporal Pulse Rate 110 H Respiratory Rate 16 Blood Pressure 137/102 H Blood Pressure Mean 113 Pulse Ox 96 Oxygen Delivery Method Room Air Positive well nourished, well developed and obese General Appearance ED: well developed and NAD Nutritional Appearance: obese HEENT atraumatic Eyes EOMs intact bilaterally Neck full ROM General: Negative for tenderness Chest Wall inspection of chest normal Resp normal respiratory effort and clear to auscultation bilaterally Auscultation: Negative for rales, rhonchi or wheezes Cardio Rate: regular rate Back/Spine normal to inspection Extremity normal to inspection Extremity Narrative: No deformity. She does have tenderness at her left small toe. There is also tenderness right above the elbow on the right humerus. But she has excellent range of motion of shoulder and elbow. No distal tenderness. No tenderness about the shoulder. Distal pulses are intact. [employer] strength and sensation are intact. Psych mental status grossly normal Skin no rashes or lesions noted and no wounds Trauma: Negative for abrasion Wounds: Negative for wounds noted MDM MDM MDM Narrative Medical decision making narrative: X-rays looked at my me and read by radiology are negative. Patient will be discharged. Radiography Diagnostic Testing: Clinical Impression(s) from Imaging Studies Foot X-Ray 07/21/21 21:33 IMPRESSION: Negative left foot. at 2216 Reported and signed by: Gregor Lozada MD Electronically Signed: Gregor Lozada MD at 22:14 EDT Tel , Service support , Humerus X-Ray 07/21/21 21:33 IMPRESSION: Negative right humerus. at 2221 Reported and signed by: Gregor Lozada MD Electronically Signed: Gregor Lozada MD at 22:19 EDT Tel , Service support , Discharge Plan Triage Chief Complaint: Fall ED Provider: Mike Lombardo Dx/Rx/DC Orders Clinical Impression: Fall from slipping, Contusion of foot, left, Contusion of arm, right Instructions: Bruises (Contusions) Prescriptions: No Action levothyroxine 75 mcg tablet 1 tab PO DAILY RF: 0 norethindrone (contraceptive) 0.35 MG tablet 1 tab PO DAILY RF: 0 meclizine 25 mg tablet 25 mg PO TID PRN (Reason: vertigo) Qty: 20 RF: 0 clotrimazole 1 % cream 1 applic topical BID Qty: 15 RF: 0 doxycycline hyclate 100 mg capsule 100 mg PO BID Qty: 14 RF: 0 Primary Care Provider: Gregor Trujillo Referrals: Gregor Trujillo MD [Primary Care Provider] - As Needed Disposition Disposition: Home, Self Care
== END 2021-07-21 22:59 | disposition home or self-care (01) ==
PROVIDERS: Emergency Provider Emergency Medicine; PCP Family Medicine
DX: S90.32XA Contusion of left foot, initial encounter (principal); S40.021A Contusion of right upper arm, initial encounter; W01.0XXA Fall on same level from slipping, tripping and stumbling without subsequent striking against object, initial encounter; Y93.9 Activity, unspecified; Y92.9 Unspecified place or not applicable; Y99.9 Unspecified external cause status; I10 Essential (primary) hypertension; E07.9 Disorder of thyroid, unspecified; Q74.0 Other congenital malformations of upper limb(s), including shoulder girdle; F79 Unspecified intellectual disabilities; E66.9 Obesity, unspecified; Z79.890 Hormone replacement therapy; Z79.899 Other long term (current) drug therapy
CPT/HCPCS: 73060; 73630; 99282

== ENCOUNTER 2021-07-30 21:07 | Emergency (ER) | payer MEDICAID, SELFPAY ==
[2021-07-30 21:08] VITALS: BP 158/98; PULSE 101; RESP 16; TEMP 36.4; O2SAT 98; BMI 43.8
[2021-07-30 22:01] LABS: Mucous, Urine 0 SEEN /hpf (<or=2+)
[2021-07-30 22:03] LABS: Color, Urine Yellow (Yellow); Glucose, Dipstick Normal (Normal); Ketone-Dipstick Negative (Negative); Leukocyte Esterase-Dipstick 25 /ul (Negative); Nitrite-Dipstick Negative (Negative); Occult Blood-Urine 25 /ul (Negative); Protein-Dipstick Negative (Negative); Urine Bilirubin Dipstick Negative (Negative); Urine Clarity Clear (Clear); Urine Urobilinogen Normal (Normal)
[2021-07-30 22:07] LABS: Internal QC Validated? YES +Cl - CLEAR BKGD; Pregnancy, Urine Negative Negative
[2021-07-30 22:11] LABS: Squamous Epithelial Cells - UA 0-5 SEEN /hpf (5-10); White Blood Cells 0-5 SEEN /hpf (0-5)
[2021-07-30 22:12] LABS: Bacteria 1+ /hpf (None Seen); Red Blood Cells-Urine 0-5 SEEN /hpf (0-5)
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
[2021-07-30] MEDS: Nitrofurantoin Macrocrystals 100 MG Capsule PO (22:51)
--- NOTE | 2021-07-30 23:21 | RAD_ITS ---
STUDY: X-RAY - RIGHT FOOT CLINICAL: Female, 20 years old. injury TECHNIQUE: 3 view(s) of the foot. COMPARISON: None. FINDINGS: Normal talus, calcaneus, and tarsal bones. Normal visualized subtalar, talonavicular, calcaneocuboid, tarsal and tarsometatarsal articulations. Normal metatarsi. Normal metatarsophalangeal joint of the great toe. Normal tibial and fibular sesamoid bones. Normal interphalangeal joint of the great toe. Normal phalanges of the great toe. Normal second through fifth metatarsophalangeal joints. Normal interphalangeal joints and phalanges of the lesser toes. The soft tissue structures are unremarkable. RAD/Foot min 3 Views IMPRESSION: Normal x-ray examination of the foot. Electronically Signed: Joseph Valentine MD at 23:59 EDT , Service support ,
[2021-07-31 00:17] VITALS: RESP 17
== END 2021-07-31 00:17 | disposition home or self-care (01) ==
PROVIDERS: Emergency Provider Emergency Medicine; PCP Family Medicine
DX: N39.0 Urinary tract infection, site not specified (principal); S90.31XA Contusion of right foot, initial encounter; W22.8XXA Striking against or struck by other objects, initial encounter; Y93.9 Activity, unspecified; Y92.9 Unspecified place or not applicable; Y99.9 Unspecified external cause status; T76.21XA Adult sexual abuse, suspected, initial encounter; I10 Essential (primary) hypertension; E07.9 Disorder of thyroid, unspecified; F79 Unspecified intellectual disabilities; Q74.0 Other congenital malformations of upper limb(s), including shoulder girdle; Z87.440 Personal history of urinary (tract) infections; Z79.890 Hormone replacement therapy; Z79.899 Other long term (current) drug therapy
CPT/HCPCS: 73630; 81001; 81025; 99282

== ENCOUNTER → 2021-08-18 16:53 | Outpatient (CLI) | payer MEDICAID, SELFPAY ==
--- NOTE | 2021-08-18 16:55 | RAD_ITS ---
INDICATION: injury EXAMINATION/TECHNIQUE: X-RAY - RIGHT XR Hand Min 3 Views 3 VIEWS COMPARISON: None. FINDINGS: SOFT TISSUES: No soft tissue swelling or gas. No radiopaque foreign body. BONES/JOINTS: No acute fracture or subluxation.. Normal alignment with the exception ulnar minus configuration of distal radial ulnar joint. Preservation of the joint space.. No sclerotic or destructive changes observed. RAD/Hand Min 3 Views IMPRESSION: 1. No acute fracture or destructive bony process or acute joint space abnormality involving the RIGHT hand. 2. Ulna minus configuration of distal radial ulnar joint. Electronically Signed: Ruddy Toledo MD at 17:55 EST Tel , Service support ,
--- NOTE | 2021-08-18 16:55 | RAD_ITS ---
INDICATION: injury EXAMINATION/TECHNIQUE: X-RAY - RIGHT XR Wrist Min 3 Views 3 VIEWS COMPARISON: None. FINDINGS: SOFT TISSUES: No soft tissue swelling or gas. No radiopaque foreign body. BONES/JOINTS: No acute fracture or subluxation.. There is normal alignment with the exception ulnar minus configuration of distal radial ulnar joint. No focal abnormalities identified within the lunate. Preservation of the joint space.. No sclerotic or destructive changes observed. RAD/Wrist min 3 Views IMPRESSION: 1. No evidence of fracture, malalignment or acute bony changes. 2. Ulna minus configuration of distal radial ulnar joint. No compensatory changes noted within the lunate. Electronically Signed: Ruddy Toledo MD at 17:51 EST Tel , Service support ,
== END ==
PROVIDERS: PCP Family Medicine; Referring Provider Physician Assistant; Visit Provider Physician Assistant
DX: S69.91XA Unspecified injury of right wrist, hand and finger(s), initial encounter (principal)
CPT/HCPCS: 73110; 73130

== ENCOUNTER 2021-09-02 20:08 | Emergency (ER) | payer MEDICAID, SELFPAY ==
[2021-09-02 20:09] VITALS: BP 148/89; PULSE 89; RESP 16; TEMP 35.7; O2SAT 99; BMI 31.3
--- NOTE | 2021-09-02 20:17 | RAD_ITS ---
STUDY: X-RAY - RIGHT SHOULDER REASON FOR EXAM: Female, 20 years old. PAIN TECHNIQUE: 2 view(s) of the shoulder. COMPARISON: None. FINDINGS: There is inferior positioning of the humerus with respect to the glenoid, possibly effusion or capsular laxity. The joint is located. AC joint is normal. Clavicle is intact. RAD/Shoulder min 2 Views IMPRESSION: Mild inferior subluxation, possibly functional/due to laxity. Electronically Signed: Heath Beltran MD at 21:15 EST Tel , Service support ,
--- NOTE | 2021-09-02 21:43 | CM.ED ---
SW Note SW updated MD that patient has a care plan. was aware. Ewelina BURCH
--- NOTE | 2021-09-02 21:44 | EDS_ITS ---
HPI History of Present Illness Chief Complaint: Upper Extremity Injury Detail of Chief Complaint: Right posterior shoulder pain Informant: patient Onset/Context/Timing Onset: Days (4 days) Context: Gradual Onset Timing: Waxes and wanes Current Severity: Mild Maximum Severity: Moderate Narrative Narrative: Patient presents with pain to the right shoulder blade region for the past 4 days. Pain is worse with palpation over the musculature. No known injury. Patient is right-hand dominant. 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 HTN (hypertension) Injury of left toe Intellectual disability Knee pain Madelung's deformity Nondisplaced fracture of middle phalanx of left lesser toe(s), initial encounter for closed fracture Nondisplaced fracture of proximal phalanx of left lesser toe(s), initial encounter for closed fracture Oppositional defiant disorder Right wrist sprain Severe headache Sprain of right hand Thyroid disease Undersocialized conduct disorder, aggressive type, moderate Home Medications norethindrone (contraceptive) 1 tab PO DAILY 01/21/19 [History Last Taken 04/22/19] levothyroxine 75 mcg tablet 1 tab PO DAILY 07/02/20 [History Last Taken Unknown] meclizine 25 mg PO TID PRN #20 tab 01/31/21 [Rx Last Taken Unknown] clotrimazole 1 applic TOPICAL BID #15 g 06/15/21 [Rx Last Taken Unknown] doxycycline hyclate 100 mg PO BID #14 cap 07/01/21 [Rx Last Taken Unknown] nitrofurantoin monohyd/m-cryst [Macrobid] 100 mg PO Q12H 5 Days #10 cap 07/31/21 [Rx Last Taken Unknown] lidocaine [Lidoderm] 1 patch TOPICAL DAILY #6 ea 09/02/21 [Rx Last Taken Unknown] naproxen [Naprosyn] 500 mg PO BID PRN #20 tab 09/02/21 [Rx Last Taken Unknown] sertraline 50 mg PO DAILY 09/02/21 [History Last Taken Unknown] Allergy/AdvReac Type Severity Reaction Status Date / Time amoxicillin [From Augmentin] Allergy Other Verified 07/24/21 17:01 amoxicillin trihydrate Allergy Other Verified 07/24/21 17:01 [From Augmentin] azithromycin Allergy Other Verified 07/24/21 17:01 clavulanic acid Allergy Other Verified 07/24/21 17:01 [From Augmentin] erythromycin base Allergy Unknown Verified 07/24/21 17:01 [From E-Mycin] potassium clavulanate Allergy Other Verified 07/24/21 17:01 [From Augmentin] ibuprofen AdvReac Nausea Verified 07/24/21 17:01 Surgical History History of ear surgery History of eye surgery Social History household members: other details: Lives with her grandmother Smoking Status: Never smoker alcohol intake: never substance use type: does not use ROS ROS ED Constitutional Constitutional ED: Denies chills or fever(s) Eyes Eyes: Denies change in vision ENT ENT ED: Denies sore throat Cardiovascular Cardiovascular: Denies chest pain Respiratory/Chest Respiratory/Chest: Denies cough or dyspnea Gastrointestinal Gastrointestinal: Denies abdominal pain, diarrhea, nausea or vomiting Genitourinary Genitourinary ED: Denies dysuria Musculoskeletal Musculoskeletal: Reports back pain Integumentary Denies rash Neurologic Neurologic: Denies headache(s), paresthesias or weakness Allergic/Immunologic Allergic/Immunologic ED: Denies urticaria EXAM Physical Exam Const Vital Signs: 09/02/21 20:09 Temperature 96.2 F L Temperature Source Temporal Pulse Rate 89 Respiratory Rate 16 Blood Pressure 148/89 H Blood Pressure Mean 108 Pulse Ox 99 Oxygen Delivery Method Room Air Positive well nourished and well developed General Appearance ED: well developed Eyes PERRL and EOMs intact bilaterally Neck supple Chest Wall inspection of chest normal and palpation of chest normal Resp normal respiratory effort and clear to auscultation bilaterally Cardio regular rate and regular rhythm GI non-tender Palpation: soft Extremity normal to inspection Extremity Narrative: No tenderness location of the shoulder joint itself. Full range of motion without difficulty. Patient does have tenderness over the inferior aspect of the right scapula. Neuro oriented x3 and no sensory deficits noted Sensorium / Orientation: alert Motor Exam: strength 5/5 throughout Skin Lesions: no lesions Rashes: no rashes MDM MDM Radiography Diagnostic Testing: Clinical Impression(s) from Imaging Studies Shoulder X-Ray 09/02/21 20:17 IMPRESSION: Mild inferior subluxation, possibly functional/due to laxity. Electronically Signed: Heath Beltran MD at 21:15 EST Tel , Service support , Treatment and Re-Evaluation Comments:: Patient has a documented allergy to ibuprofen. She reportedly has taken naproxen in the past without difficulty. Should be given naproxen and Lidoderm patches to place topically over the area. Right shoulder x-rays have been obtained per nursing protocol and reveal possible mild subluxation from laxity. No acute findings noted. Discharge Plan Triage Chief Complaint: Upper Extremity Injury ED Provider: Dania Conrad Dx/Rx/DC Orders Clinical Impression: Musculoskeletal back pain Instructions: ED Back Pain (Acute or Chronic) Prescriptions: New naproxen [Naprosyn] 500 mg tablet 500 mg PO BID PRN (Reason: pain) Qty: 20 RF: 0 lidocaine [Lidoderm] 5 % adhesive patch,medicated 1 patch topical DAILY Qty: 6 RF: 0 No Action levothyroxine 75 mcg tablet 1 tab PO DAILY RF: 0 norethindrone (contraceptive) 0.35 MG tablet 1 tab PO DAILY RF: 0 meclizine 25 mg tablet 25 mg PO TID PRN (Reason: vertigo) Qty: 20 RF: 0 clotrimazole 1 % cream 1 applic topical BID Qty: 15 RF: 0 doxycycline hyclate 100 mg capsule 100 mg PO BID Qty: 14 RF: 0 nitrofurantoin monohyd/m-cryst [Macrobid] 100 mg capsule 100 mg PO Q12H 5 Days Qty: 10 RF: 0 sertraline 50 mg tablet 50 mg PO DAILY RF: 0 Primary Care Provider: Gregor Trujillo Referrals: Gergor Trujillo MD [Primary Care Provider] - 1 Week if not improving Disposition Disposition: Home, Self Care
[2021-09-02] MEDS: Lidocaine 5% Patch 1 PATCH TOPICAL (21:55)
[2021-09-02] MEDS: Naproxen 500 MG Tablet PO (21:56)
== END 2021-09-02 22:17 | disposition home or self-care (01) ==
PROVIDERS: Emergency Provider Emergency Medicine; PCP Family Medicine
DX: M54.9 Dorsalgia, unspecified (principal); Q74.0 Other congenital malformations of upper limb(s), including shoulder girdle; I10 Essential (primary) hypertension; E07.9 Disorder of thyroid, unspecified; F79 Unspecified intellectual disabilities; Z79.890 Hormone replacement therapy; Z79.1 Long term (current) use of non-steroidal anti-inflammatories (NSAID); Z79.899 Other long term (current) drug therapy; F91.3 Oppositional defiant disorder
CPT/HCPCS: 73030; 99284

== ENCOUNTER 2021-09-22 21:26 | Emergency (ER) | payer MEDICAID, SELFPAY ==
[2021-09-22 21:27] VITALS: BP 159/95; PULSE 100; RESP 18; TEMP 36.4; O2SAT 96; BMI 41.4
--- NOTE | 2021-09-22 23:03 | EDS_ITS ---
HPI History of Present Illness Chief Complaint: Upper Extremity Injury Detail of Chief Complaint: Right posterior shoulder discomfort. Informant: patient Onset/Context/Timing Onset: Today Context: Gradual Onset Timing: Continuous Quality of Pain: Sharp Current Severity: Mild Maximum Severity: Mild Narrative Narrative: 20-year-old female states she has pain behind her right shoulder blade. At times is tingling in her right arm. Denies any other complaints. No weakness. No headache. No head trauma. No recent illness. She is never had a stroke or mini stroke. No head or neck surgeries. 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 HTN (hypertension) Injury of left toe Intellectual disability Knee pain Madelung's deformity Nondisplaced fracture of middle phalanx of left lesser toe(s), initial encounter for closed fracture Nondisplaced fracture of proximal phalanx of left lesser toe(s), initial encounter for closed fracture Oppositional defiant disorder Right wrist sprain Severe headache Sprain of right hand Thyroid disease Undersocialized conduct disorder, aggressive type, moderate Home Medications norethindrone (contraceptive) 1 tab PO DAILY 01/21/19 [History Last Taken 04/22/19] levothyroxine 75 mcg tablet 1 tab PO DAILY 07/02/20 [History Last Taken Unknown] meclizine 25 mg PO TID PRN #20 tab 01/31/21 [Rx Last Taken Unknown] clotrimazole 1 applic TOPICAL BID #15 g 06/15/21 [Rx Last Taken Unknown] lidocaine [Lidoderm] 1 patch TOPICAL DAILY #6 ea 09/02/21 [Rx Last Taken Unknown] naproxen [Naprosyn] 500 mg PO BID PRN #20 tab 09/02/21 [Rx Last Taken Unknown] sertraline 50 mg PO DAILY 09/02/21 [History Last Taken Unknown] Allergy/AdvReac Type Severity Reaction Status Date / Time amoxicillin [From Augmentin] Allergy Other Verified 09/22/21 21:30 amoxicillin trihydrate Allergy Other Verified 09/22/21 21:30 [From Augmentin] azithromycin Allergy Other Verified 09/22/21 21:30 clavulanic acid Allergy Other Verified 09/22/21 21:30 [From Augmentin] erythromycin base Allergy Unknown Verified 09/22/21 21:30 [From E-Mycin] potassium clavulanate Allergy Other Verified 09/22/21 21:30 [From Augmentin] ibuprofen AdvReac Nausea Verified 09/22/21 21:30 Surgical History History of ear surgery History of eye surgery Social History household members: other details: Lives with her grandmother Smoking Status: Never smoker alcohol intake: never substance use type: does not use ROS ROS ED ROS Narrative Denies Review of Systems ROS Unobtainable: Denies due to encephalopathy Constitutional Constitutional ED: Denies fever(s) Eyes Eyes: Denies blurry vision, change in vision or diplopia ENT ENT ED: Denies ear pain Cardiovascular Cardiovascular: Denies chest pain Respiratory/Chest Respiratory/Chest: Denies dyspnea Gastrointestinal Gastrointestinal: Denies abdominal pain Genitourinary Genitourinary ED: Denies dysuria Musculoskeletal Musculoskeletal: Denies myalgias Integumentary Denies rash Neurologic Neurologic: Denies headache(s) Psychiatric Psychiatric: Denies depression Endocrine Endocrinology: Denies polyuria Hematologic/Lymphatic Hematologic/Lymphatic: Denies easy bruising Allergic/Immunologic Allergic/Immunologic ED: Denies urticaria EXAM Physical Exam Narrative Exam Narrative: 20-year-old female no acute distress vital signs stable afebrile. H EENT exam normal. No facial droop. Normal speech. Give medical reactive light extra motions are intact. Neck nontender. Lungs are clear. Heart regular rhythm. Abdomen soft nontender obese. Moving all 4 extremities. 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 Normal dorsi plantar flexion. She can lift either arm or leg off the bed without drift. [id number] within normal limits. Neurologic exam normal. Back stretches reproducible soft tissue tenderness on her right posterior back. There is no signs of trauma. NIH score of 0. Const Vital Signs: 09/22/21 21:27 Temperature 97.6 F L Temperature Source Temporal Pulse Rate 100 Respiratory Rate 18 Blood Pressure 159/95 H Blood Pressure Mean 116 Pulse Ox 96 Oxygen Delivery Method Room Air Positive well nourished, well developed and obese; Negative for cachectic, contractures or unkempt General Appearance ED: well developed and NAD; Negative for unkempt, cachectic, contractures, cyanotic, diaphoretic or other Nutritional Appearance: obese; Negative for cachectic HEENT normocephalic and atraumatic; Negative for trauma or tenderness Eyes PERRL and EOMs intact bilaterally Neck full ROM and supple General: Negative for tenderness Chest Wall inspection of chest normal and palpation of chest normal Resp normal respiratory effort and clear to auscultation bilaterally Effort and Inspection: Negative for pain with movement Auscultation: Negative for rales, rhonchi or wheezes Cardio regular rate, regular rhythm, S1 normal heart sound, S2 normal heart sound and no murmurs GI non-tender, non-distended and no masses Auscultation: normoactive bowel sounds Palpation: soft; Negative for tender or guarding Back/Spine no CVA tenderness General Back: Negative for CVA tenderness Cervical Spine: Negative for cervical spine tenderness Thoracic Spine / Upper Back: Negative for thoracic spinal tenderness Extremity normal to inspection and full ROM General Extremety ED: Negative for edema General Extremity: Negative for edema Neuro CN's II-XII intact bilaterally, moves all extremities and no focal motor deficits Sensorium / Orientation: alert, oriented to person, oriented to place and oriented to time; Negative for orientation impaired, lethargic or stuporous Motor Exam: strength 5/5 throughout Psych mental status grossly normal Appearance: Negative for unkempt Attitude: No agitated Mood & Affect: Negative for depressed, anxious or tearful Skin Lesions: no lesions Rashes: no rashes Trauma: no lacerations or abrasions; Negative for abrasion or laceration MDM MDM MDM Narrative Medical decision making narrative: 20-year-old female normal exam.. Will be discharged home. Discharge Plan Triage Chief Complaint: Upper Extremity Injury ED Provider: Godfrey Mcintosh Dx/Rx/DC Orders Clinical Impression: Acute pain of right shoulder Instructions: ED Muscle Strain, Extremity Prescriptions: No Action levothyroxine 75 mcg tablet 1 tab PO DAILY RF: 0 norethindrone (contraceptive) 0.35 MG tablet 1 tab PO DAILY RF: 0 meclizine 25 mg tablet 25 mg PO TID PRN (Reason: vertigo) Qty: 20 RF: 0 clotrimazole 1 % cream 1 applic topical BID Qty: 15 RF: 0 sertraline 50 mg tablet 50 mg PO DAILY RF: 0 naproxen [Naprosyn] 500 mg tablet 500 mg PO BID PRN (Reason: pain) Qty: 20 RF: 0 lidocaine [Lidoderm] 5 % adhesive patch,medicated 1 patch topical DAILY Qty: 6 RF: 0 Primary Care Provider: Gregor Trujillo Referrals: Gregor Trujillo MD [Primary Care Provider] - 3-5 Days if not improving Activity Restrictions/Additional Instructions: Motrin for pain. Hot showers and warm bath to relax the muscles in your shoulder. Disposition Disposition: Home, Self Care
== END 2021-09-22 23:18 | disposition home or self-care (01) ==
PROVIDERS: Emergency Provider Emergency Medicine; PCP Family Medicine
DX: M25.511 Pain in right shoulder (principal); R20.2 Paresthesia of skin; I10 Essential (primary) hypertension; E07.9 Disorder of thyroid, unspecified; F79 Unspecified intellectual disabilities; Q74.0 Other congenital malformations of upper limb(s), including shoulder girdle; F91.3 Oppositional defiant disorder; E66.9 Obesity, unspecified; Z79.1 Long term (current) use of non-steroidal anti-inflammatories (NSAID); Z79.890 Hormone replacement therapy; Z79.899 Other long term (current) drug therapy
CPT/HCPCS: 99282

== ENCOUNTER 2021-09-27 18:48 | Emergency (ER) | payer MEDICAID, SELFPAY ==
[2021-09-27 18:50] VITALS: BP 143/97; PULSE 102; RESP 16; TEMP 35.8; O2SAT 95; BMI 46.8
--- NOTE | 2021-09-27 19:00 | RAD_ITS ---
STUDY: X-RAY - RIGHT WRIST REASON FOR EXAM: Female, 20 years old. wrist pain TECHNIQUE: 3 view(s) of the wrist were obtained. COMPARISON: 08/18/2021 FINDINGS: Normal visualized distal radius and ulna. Normal radiocarpal articulation. There is a negative ulnar variance. Relative enlargement of the lunate, stable. Normal carpal articulations. Normal carpometacarpal articulation of the thumb. Normal second through fifth carpometacarpal articulations. Normal visualized metacarpal bones. Soft tissue swelling of the dorsal wrist. RAD/Wrist min 3 Views IMPRESSION: No demonstrated fracture or malalignment. Soft tissue swelling. Electronically Signed: Michael Godinez MD ([place]) at 19:43 EST , Service support ,
--- NOTE | 2021-09-27 19:04 | EDS_ITS ---
HPI History of Present Illness Chief Complaint: Upper Extremity Injury Narrative Narrative: 20-year-old female presenting with right wrist pain. She states she fell while going up the stairs yesterday at her home. She states she was seen in [place] for her wrist pain. She did not have an x-ray but she was placed in a fiberglass splint. Apparently did not think she had broken her wrist. Patient arrives today with a splint and an Gene wrap on her right wrist on the lateral surface. There is no deformities, swelling, bruising. Patient is actually using her right hand to carry her purse and her soda. 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 HTN (hypertension) Injury of left toe Intellectual disability Knee pain Madelung's deformity Nondisplaced fracture of middle phalanx of left lesser toe(s), initial encounter for closed fracture Nondisplaced fracture of proximal phalanx of left lesser toe(s), initial encounter for closed fracture Oppositional defiant disorder Right wrist sprain Severe headache Sprain of right hand Thyroid disease Undersocialized conduct disorder, aggressive type, moderate Home Medications norethindrone (contraceptive) 1 tab PO DAILY 01/21/19 [History Last Taken 04/22/19] levothyroxine 75 mcg tablet 1 tab PO DAILY 07/02/20 [History Last Taken Unknown] meclizine 25 mg PO TID PRN #20 tab 01/31/21 [Rx Last Taken Unknown] clotrimazole 1 applic TOPICAL BID #15 g 06/15/21 [Rx Last Taken Unknown] lidocaine [Lidoderm] 1 patch TOPICAL DAILY #6 ea 09/02/21 [Rx Last Taken Unknown] naproxen [Naprosyn] 500 mg PO BID PRN #20 tab 09/02/21 [Rx Last Taken Unknown] sertraline 50 mg PO DAILY 09/02/21 [History Last Taken Unknown] Allergy/AdvReac Type Severity Reaction Status Date / Time amoxicillin [From Augmentin] Allergy Other Verified 09/27/21 18:53 amoxicillin trihydrate Allergy Other Verified 09/27/21 18:53 [From Augmentin] azithromycin Allergy Other Verified 09/27/21 18:53 clavulanic acid Allergy Other Verified 09/27/21 18:53 [From Augmentin] erythromycin base Allergy Unknown Verified 09/27/21 18:53 [From E-Mycin] potassium clavulanate Allergy Other Verified 09/27/21 18:53 [From Augmentin] ibuprofen AdvReac Nausea Verified 09/27/21 18:53 Surgical History History of ear surgery History of eye surgery Social History household members: other details: Lives with her grandmother Smoking Status: Never smoker alcohol intake: never substance use type: does not use ROS ROS ED Constitutional Constitutional ED: Denies chills, fever(s) or sweats Eyes Eyes: Denies blurry vision or diplopia ENT ENT ED: Denies rhinorrhea or sore throat Cardiovascular Cardiovascular: Denies chest pain or palpitations Respiratory/Chest Respiratory/Chest: Denies cough or dyspnea Gastrointestinal Gastrointestinal: Denies abdominal pain or nausea Genitourinary Genitourinary ED: Denies dysuria or hematuria Musculoskeletal Musculoskeletal: Reports other Details: Right wrist pain Integumentary Denies Abrasions or rash Neurologic Neurologic: Denies headache(s) or paresthesias EXAM Physical Exam Const Vital Signs: 09/27/21 18:50 Temperature 96.5 F L Temperature Source Temporal Pulse Rate 102 H Respiratory Rate 16 Blood Pressure 143/97 H Blood Pressure Mean 112 Pulse Ox 95 Oxygen Delivery Method Room Air Positive well nourished General Appearance ED: NAD HEENT normocephalic and atraumatic Eyes PERRL and EOMs intact bilaterally Resp normal respiratory effort Extremity Extremity Narrative: Tenderness palpation on the ulnar side of the right wrist. There is no bony deformity, swelling, bruising. Right hand neurovascular intact. Neuro oriented x3 and CN's II-XII intact bilaterally Sensorium / Orientation: alert Psych mental status grossly normal Skin Rashes: no rashes MDM MDM MDM Narrative Medical decision making narrative: 20-year-old female presenting with right wrist pain. She is already been evaluated for this and put in a splint. She requests an x-ray of the right wrist. There is no external signs of injury. X- ray of the right wrist is performed on my interpretation shows no acute fracture or subluxation. Radiologist agree. Patient counseled to use ice and wear her splint as needed. She can come out of this if she needs to. Tylenol for pain since she is allergic to ibuprofen. Patient stable for discharge. Impression: 1.Right wrist strain Discharge Plan Triage Chief Complaint: Upper Extremity Injury ED Provider: Timothy Grigsby Dx/Rx/DC Orders Instructions: ED Wrist Sprain Prescriptions: No Action levothyroxine 75 mcg tablet 1 tab PO DAILY RF: 0 norethindrone (contraceptive) 0.35 MG tablet 1 tab PO DAILY RF: 0 meclizine 25 mg tablet 25 mg PO TID PRN (Reason: vertigo) Qty: 20 RF: 0 clotrimazole 1 % cream 1 applic topical BID Qty: 15 RF: 0 sertraline 50 mg tablet 50 mg PO DAILY RF: 0 naproxen [Naprosyn] 500 mg tablet 500 mg PO BID PRN (Reason: pain) Qty: 20 RF: 0 lidocaine [Lidoderm] 5 % adhesive patch,medicated 1 patch topical DAILY Qty: 6 RF: 0 Primary Care Provider: Gregor Trujillo Referrals: Gregor Trujillo MD [Primary Care Provider] - Disposition Disposition: Home, Self Care
== END 2021-09-27 20:03 | disposition home or self-care (01) ==
PROVIDERS: Emergency Provider Student in an Organized Health Care Education/Training Program; PCP Family Medicine
DX: S63.501A Unspecified sprain of right wrist, initial encounter (principal); W10.9XXA Fall (on) (from) unspecified stairs and steps, initial encounter; F79 Unspecified intellectual disabilities; D64.9 Anemia, unspecified; F90.9 Attention-deficit hyperactivity disorder, unspecified type; F91.3 Oppositional defiant disorder; I10 Essential (primary) hypertension; Q74.0 Other congenital malformations of upper limb(s), including shoulder girdle; Z79.1 Long term (current) use of non-steroidal anti-inflammatories (NSAID); Z79.899 Other long term (current) drug therapy
CPT/HCPCS: 73110; 99282

== ENCOUNTER 2021-11-22 12:26 | Emergency (ER) | payer MEDICAID, SELFPAY ==
[2021-11-22 12:27] VITALS: BP 145/89; PULSE 89; RESP 16; TEMP 36.7; O2SAT 97; BMI 32.3
--- NOTE | 2021-11-22 13:07 | EX.ED.DYSGE1 ---
HPI History of Present Illness Chief Complaint: Rash Informant: patient Onset/Context/Timing Onset: Days Context: Gradual Onset Timing: Continuous Current Severity: Mild Maximum Severity: Mild Narrative Narrative: 21-year-old female with a rash to both legs for approximately a week. Was seen in the clinic urgent care started on Bactrim and bacitracin ointment. Not improving. States that the rash itches and she has been scratching them a lot excoriating the skin. No fever or chills. No prior history. There is also one area on her abdomen. 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 HTN (hypertension) Injury of left toe Intellectual disability Knee pain Madelung's deformity Nondisplaced fracture of middle phalanx of left lesser toe(s), initial encounter for closed fracture Nondisplaced fracture of proximal phalanx of left lesser toe(s), initial encounter for closed fracture Oppositional defiant disorder Right wrist sprain Severe headache Sprain of right hand Thyroid disease Undersocialized conduct disorder, aggressive type, moderate Home Medications norethindrone (contraceptive) 1 tab PO DAILY 01/21/19 [History Last Taken 04/22/19] levothyroxine 75 mcg tablet 1 tab PO DAILY 07/02/20 [History Last Taken Unknown] meclizine 25 mg PO TID PRN #20 tab 01/31/21 [Rx Last Taken Unknown] clotrimazole 1 applic TOPICAL BID #15 g 06/15/21 [Rx Last Taken Unknown] lidocaine [Lidoderm] 1 patch TOPICAL DAILY #6 ea 09/02/21 [Rx Last Taken Unknown] naproxen [Naprosyn] 500 mg PO BID PRN #20 tab 09/02/21 [Rx Last Taken Unknown] sertraline 50 mg PO DAILY 09/02/21 [History Last Taken Unknown] bacitracin 1 applic TOPICAL BID 11/22/21 [History Last Taken Unknown] prednisone 40 mg PO DAILY 7 Days #14 tab 11/22/21 [Rx Last Taken Unknown] sulfamethoxazole-trimethoprim 1 tab PO BID 11/22/21 [History Last Taken Unknown] Allergy/AdvReac Type Severity Reaction Status Date / Time amoxicillin [From Augmentin] Allergy Other Verified 09/27/21 18:53 amoxicillin trihydrate Allergy Other Verified 09/27/21 18:53 [From Augmentin] azithromycin Allergy Other Verified 09/27/21 18:53 clavulanic acid Allergy Other Verified 09/27/21 18:53 [From Augmentin] erythromycin base Allergy Unknown Verified 09/27/21 18:53 [From E-Mycin] potassium clavulanate Allergy Other Verified 09/27/21 18:53 [From Augmentin] ibuprofen AdvReac Nausea Verified 09/27/21 18:53 Surgical History History of ear surgery History of eye surgery Social History household members: other details: Lives with her grandmother Smoking Status: Never smoker alcohol intake: never substance use type: does not use ROS ROS ED ROS Narrative Denies. Rash. Review of Systems ROS Unobtainable: Denies due to encephalopathy Constitutional Constitutional ED: Denies chills or fever(s) Eyes Eyes: Denies change in vision ENT ENT ED: Denies ear pain Cardiovascular Cardiovascular: Denies chest pain Respiratory/Chest Respiratory/Chest: Denies dyspnea Gastrointestinal Gastrointestinal: Denies abdominal pain, diarrhea, nausea or vomiting Genitourinary Genitourinary ED: Denies dysuria Musculoskeletal Musculoskeletal: Denies myalgias Integumentary Reports rash Neurologic Neurologic: Denies headache(s) Psychiatric Psychiatric: Denies depression Endocrine Endocrinology: Denies polyuria Allergic/Immunologic Allergic/Immunologic ED: Denies urticaria EXAM Physical Exam Narrative Exam Narrative: 21-year-old female no acute distress vital signs stable afebrile. HEENT exam unremarkable. Lungs are clear. Heart regular rhythm. Abdomen soft nontender normal bowel sounds no peritoneal signs. Obese. Moving all 4 extremities neurovascular intact. Back nontender. Skin rash red raised on the right thigh and left thigh. Excoriated from scratching. No cellulitis. No abscess. 1 area just below the bellybutton. Clinically I think is secondary to allergic reaction and not infection. Const Vital Signs: 11/22/21 12:27 Temperature 98.1 F Temperature Source Temporal Pulse Rate 89 Respiratory Rate 16 Blood Pressure 145/89 H Blood Pressure Mean 107 Pulse Ox 97 Oxygen Delivery Method Room Air Positive well nourished, well developed and obese; Negative for cachectic, contractures or unkempt General Appearance ED: well developed and NAD; Negative for unkempt, cachectic, contractures, cyanotic, diaphoretic or pallor Nutritional Appearance: obese; Negative for cachectic HEENT Reports moist mucous membranes Eyes PERRL and EOMs intact bilaterally Neck no lymphadenopathy, supple and no JVD General: Negative for tenderness Chest Wall inspection of chest normal and palpation of chest normal Resp normal respiratory effort and clear to auscultation bilaterally Auscultation: Negative for rales, rhonchi or wheezes Cardio regular rate, regular rhythm, S1 normal heart sound, S2 normal heart sound and no murmurs GI normal to inspection, nondistended, normoactive bowel sounds, non-tender, non-distended and no masses Auscultation: normoactive bowel sounds Palpation: soft; Negative for tender, guarding or rebound tenderness present Back/Spine no CVA tenderness General Back: CVA tenderness Cervical Spine: Negative for cervical spine tenderness Thoracic Spine / Upper Back: Negative for thoracic spinal tenderness Extremity normal to inspection Extremity Narrative: Skin rash on both extremities. General Extremety ED: Negative for edema or tenderness General Extremity: Negative for edema Neuro oriented x3 Sensorium / Orientation: alert Motor Exam: strength 5/5 throughout Psych mental status grossly normal Appearance: Negative for unkempt Mood & Affect: Negative for depressed or tearful Skin No no rashes or lesions noted and no wounds General Skin Exam: Negative for jaundice or pallor Rashes: rashes noted MDM MDM MDM Narrative Medical decision making narrative: Rash that itches on bilateral lower extremities consistent with allergic reaction. Patient be started on prednisone given first dose here and then 40 mg a day for the next 6 days. Continue her current antibiotic and antibiotic cream. Follow-up with dermatology if not improving or getting worse. Discharge Plan Triage Chief Complaint: Rash ED Provider: Godfrey Mcintosh Dx/Rx/DC Orders Clinical Impression: Hives, Allergic reaction Instructions: ED Hives (Adult) Prescriptions: New prednisone 20 mg tablet 40 mg PO DAILY 7 Days Qty: 14 RF: 0 No Action levothyroxine 75 mcg tablet 1 tab PO DAILY RF: 0 norethindrone (contraceptive) 0.35 MG tablet 1 tab PO DAILY RF: 0 meclizine 25 mg tablet 25 mg PO TID PRN (Reason: vertigo) Qty: 20 RF: 0 clotrimazole 1 % cream 1 applic topical BID Qty: 15 RF: 0 sertraline 50 mg tablet 50 mg PO DAILY RF: 0 naproxen [Naprosyn] 500 mg tablet 500 mg PO BID PRN (Reason: pain) Qty: 20 RF: 0 lidocaine [Lidoderm] 5 % adhesive patch,medicated 1 patch topical DAILY Qty: 6 RF: 0 bacitracin 500 unit/gram ointment 1 applic TOPICAL BID RF: 0 sulfamethoxazole-trimethoprim 800-160 mg tablet 1 tab PO BID RF: 0 Primary Care Provider: Gregor Trujillo Referrals: Rita Barroso MD [NON-STAFF] - 1 Week if not improving Gregor Trujillo MD [Primary Care Provider] - Activity Restrictions/Additional Instructions: Prednisone daily until gone. I think the rash is most likely a allergic reaction. You can continue the oral antibiotic and the antibiotic cream. Follow-up with a local automatic corn grinder operator if this is not improving and going away. Disposition Disposition: Home, Self Care
[2021-11-22] MEDS: predniSONE 20 MG Tablet 60 MG PO (13:26)
== END 2021-11-22 13:37 | disposition home or self-care (01) ==
PROVIDERS: Emergency Provider Emergency Medicine; PCP Family Medicine; Visit Provider Emergency Medicine
DX: T78.40XA Allergy, unspecified, initial encounter (principal); L50.9 Urticaria, unspecified; I10 Essential (primary) hypertension; E66.9 Obesity, unspecified; F91.3 Oppositional defiant disorder; Z79.1 Long term (current) use of non-steroidal anti-inflammatories (NSAID); Z79.52 Long term (current) use of systemic steroids; Z79.899 Other long term (current) drug therapy
CPT/HCPCS: 99283

== ENCOUNTER 2021-11-24 06:40 | Emergency (ER) | payer MEDICAID, SELFPAY ==
[2021-11-24 06:41] VITALS: BP 161/97; PULSE 91; RESP 18; TEMP 36.6; O2SAT 95; BMI 42.3
--- NOTE | 2021-11-24 07:04 | ED.VIS.LOWEX ---
HPI History of Present Illness HPI Narrative: Patient presents with right foot pain and abrasion that began after a fall this morning. Patient fell while getting up off of the toilet this morning. Patient states she was trying to push up on a handle and the handle broke. Patient states her pain is constant in her right foot. Patient states it is worse with any movement. Patient admits to some numbness in her right foot but denies any weakness. Patient states her tetanus is up-to-date. Patient denies any other injuries. 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 HTN (hypertension) Injury of left toe Intellectual disability Knee pain Madelung's deformity Nondisplaced fracture of middle phalanx of left lesser toe(s), initial encounter for closed fracture Nondisplaced fracture of proximal phalanx of left lesser toe(s), initial encounter for closed fracture Oppositional defiant disorder Right wrist sprain Severe headache Sprain of right hand Thyroid disease Undersocialized conduct disorder, aggressive type, moderate Home Medications norethindrone (contraceptive) 1 tab PO DAILY 01/21/19 [History Last Taken 04/22/19] levothyroxine 75 mcg tablet 1 tab PO DAILY 07/02/20 [History Last Taken Unknown] meclizine 25 mg PO TID PRN #20 tab 01/31/21 [Rx Last Taken Unknown] clotrimazole 1 applic TOPICAL BID #15 g 06/15/21 [Rx Last Taken Unknown] lidocaine [Lidoderm] 1 patch TOPICAL DAILY #6 ea 09/02/21 [Rx Last Taken Unknown] naproxen [Naprosyn] 500 mg PO BID PRN #20 tab 09/02/21 [Rx Last Taken Unknown] sertraline 50 mg PO DAILY 09/02/21 [History Last Taken Unknown] bacitracin 1 applic TOPICAL BID 11/22/21 [History Last Taken Unknown] prednisone 40 mg PO DAILY 7 Days #14 tab 11/22/21 [Rx Last Taken Unknown] sulfamethoxazole-trimethoprim 1 tab PO BID 11/22/21 [History Last Taken Unknown] ondansetron 4 mg PO Q8H PRN PRN #10 tab 11/24/21 [Rx Last Taken Unknown] Allergy/AdvReac Type Severity Reaction Status Date / Time amoxicillin [From Augmentin] Allergy Other Verified 09/27/21 18:53 amoxicillin trihydrate Allergy Other Verified 09/27/21 18:53 [From Augmentin] azithromycin Allergy Other Verified 09/27/21 18:53 clavulanic acid Allergy Other Verified 09/27/21 18:53 [From Augmentin] erythromycin base Allergy Unknown Verified 09/27/21 18:53 [From E-Mycin] potassium clavulanate Allergy Other Verified 09/27/21 18:53 [From Augmentin] ibuprofen AdvReac Nausea Verified 09/27/21 18:53 Surgical History History of ear surgery History of eye surgery Social History household members: other details: Lives with her grandmother Smoking Status: Never smoker alcohol intake: never substance use type: does not use ROS ROS ED Constitutional Constitutional ED: Denies chills or fever(s) Eyes Eyes: Denies blurry vision or change in vision ENT ENT ED: Denies rhinorrhea or sore throat Cardiovascular Cardiovascular: Denies chest pain or palpitations Respiratory/Chest Respiratory/Chest: Reports cough; Denies dyspnea Gastrointestinal Gastrointestinal: Reports nausea; Denies vomiting Genitourinary Genitourinary ED: Denies dysuria or hematuria Musculoskeletal Musculoskeletal: Denies back pain or neck pain Integumentary Reports Abrasions; Denies abscess or rash Neurologic Neurologic: Denies headache(s) or weakness Allergic/Immunologic Allergic/Immunologic ED: Denies mouth swelling or urticaria EXAM Physical Exam Const Vital Signs: 11/24/21 06:41 Temperature 97.9 F Temperature Source Temporal Pulse Rate 91 Respiratory Rate 18 Blood Pressure 161/97 H Blood Pressure Mean 118 Pulse Ox 95 Oxygen Delivery Method Room Air Positive well nourished, well developed, obese and unkempt General Appearance ED: unkempt, well developed and NAD Nutritional Appearance: obese HEENT Reports moist mucous membranes Neck full ROM and supple Extremity Extremity Narrative: There is tenderness over the dorsal aspect of the right foot. There is trace edema. There is no obvious deformity. There is a superficial abrasion over the dorsum of the right foot as well as on the medial aspect of the right foot. There is no active bleeding. There are no foreign bodies. Range of motion was limited in all motions of the right foot and ankle secondary to pain. Sensation was intact to light touch in all digits. Capillary refill was less than 2 seconds in all digits. There is a strong pedal pulse noted. Neuro oriented x3, CN's II-XII intact bilaterally, moves all extremities and no sensory deficits noted Sensorium / Orientation: alert Motor Exam: strength 5/5 throughout Psych mental status grossly normal Appearance: unkempt Skin Trauma: abrasion MDM MDM MDM Narrative Medical decision making narrative: X-rays of the right foot were obtained. There are 3 views. On my interpretation, there is no acute fracture. There is no dislocation. There is no soft tissue swelling. Radiologist also interpreted the x-rays and agrees. Bacitracin dressings were applied. Patient was instructed to ice and elevate the right foot. Patient was instructed to take Tylenol as needed for pain. Patient was instructed to follow-up with her primary care physician in 5 to 7 days. Patient understood and was agreeable with the plan. All questions were answered. Radiography Diagnostic Testing: Clinical Impression(s) from Imaging Studies Foot X-Ray 11/24/21 07:25 IMPRESSION: Normal x-ray examination of the foot. Electronically Signed: Herbert Carlton MD at 10:05 [facility] , Discharge Plan Triage Chief Complaint: Lower Extremity Injury ED Provider: Shaheen Arnett Dx/Rx/DC Orders Clinical Impression: Contusion of foot, right, Abrasion of foot, right Instructions: ED Abrasion, ED Foot Contusion Prescriptions: New ondansetron [ondansetron] 4 MG tablet 4 mg PO Q8H PRN PRN (Reason: Nausea) Qty: 10 RF: 0 No Action levothyroxine 75 mcg tablet 1 tab PO DAILY RF: 0 norethindrone (contraceptive) 0.35 MG tablet 1 tab PO DAILY RF: 0 meclizine 25 mg tablet 25 mg PO TID PRN (Reason: vertigo) Qty: 20 RF: 0 clotrimazole 1 % cream 1 applic topical BID Qty: 15 RF: 0 sertraline 50 mg tablet 50 mg PO DAILY RF: 0 naproxen [Naprosyn] 500 mg tablet 500 mg PO BID PRN (Reason: pain) Qty: 20 RF: 0 lidocaine [Lidoderm] 5 % adhesive patch,medicated 1 patch topical DAILY Qty: 6 RF: 0 bacitracin 500 unit/gram ointment 1 applic TOPICAL BID RF: 0 sulfamethoxazole-trimethoprim 800-160 mg tablet 1 tab PO BID RF: 0 prednisone 20 mg tablet 40 mg PO DAILY 7 Days Qty: 14 RF: 0 Primary Care Provider: Gregor Trujillo Referrals: Gregor Trujillo MD [Primary Care Provider] - 5-7 Days Disposition Disposition: Home, Self Care Discharge Date/Time: 11/24/21 10:20
--- NOTE | 2021-11-24 07:25 | RAD_ITS ---
STUDY: X-RAY - RIGHT FOOT CLINICAL: Female, 21 years old. Injury/Pain TECHNIQUE: 3 view(s) of the foot. COMPARISON: None. FINDINGS: Normal talus, calcaneus, and tarsal bones. Normal visualized subtalar, talonavicular, calcaneocuboid, tarsal and tarsometatarsal articulations. Normal metatarsi. Normal metatarsophalangeal joint of the great toe. Normal tibial and fibular sesamoid bones. Normal interphalangeal joint of the great toe. Normal phalanges of the great toe. Normal second through fifth metatarsophalangeal joints. Normal interphalangeal joints and phalanges of the lesser toes. The soft tissue structures are unremarkable. RAD/Foot min 3 Views IMPRESSION: Normal x-ray examination of the foot. Electronically Signed: Herbert Carlton MD at 10:05 [facility] ,
== END 2021-11-24 10:20 | disposition home or self-care (01) ==
PROVIDERS: Emergency Provider Emergency Medicine; PCP Family Medicine; Visit Provider Emergency Medicine
DX: S90.31XA Contusion of right foot, initial encounter (principal); E66.9 Obesity, unspecified; W18.11XA Fall from or off toilet without subsequent striking against object, initial encounter
CPT/HCPCS: 73630; 99282

== ENCOUNTER 2021-12-26 17:01 | Emergency (ER) | payer MEDICAID, SELFPAY ==
[2021-12-26 17:02] VITALS: BP 146/94; PULSE 82; RESP 16; TEMP 35.4; O2SAT 96; BMI 33.3
--- NOTE | 2021-12-26 17:46 | EDS_ITS ---
HPI History of Present Illness Chief Complaint: Back Informant: patient and family Onset/Context/Timing Onset: Days Context: Sudden Onset Injury: direct trauma Timing: Continuous Quality: Dull and Aching Location: Lumbar Current Severity: Mild Maximum Severity: Mild Worsened by: improves with Movement and Bending Relieved by: Nothing Associated Symptoms Associated Symptoms: Negative for Numbness, Tingling, Radiation to Right Leg, Radiation to Left Leg, Abdominal Pain, Dysuria, Unable to Ambulate, Unable to Transfer, Urinary Retention, Urinary Incontinence, Constipation and Fecal Incontinence Narrative Narrative: 21-year-old female well-known to this emergency department. Reportedly fell several days ago hitting her back. Since that time has had lower back pain. She was seen in urgent care. She denies any bowel or bladder incontinence. No weakness to her legs. No dysuria. No hematuria or fever. No prior back history or back surgery. 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 HTN (hypertension) Injury of left toe Intellectual disability Knee pain Madelung's deformity Nondisplaced fracture of middle phalanx of left lesser toe(s), initial encounter for closed fracture Nondisplaced fracture of proximal phalanx of left lesser toe(s), initial encounter for closed fracture Oppositional defiant disorder Right wrist sprain Severe headache Sprain of right hand Thyroid disease Undersocialized conduct disorder, aggressive type, moderate Home Medications norethindrone (contraceptive) 1 tab PO DAILY 01/21/19 [History Last Taken 04/22/19] levothyroxine 75 mcg tablet 1 tab PO DAILY 07/02/20 [History Last Taken Unknown] meclizine 25 mg PO TID PRN #20 tab 01/31/21 [Rx Last Taken Unknown] clotrimazole 1 applic TOPICAL BID #15 g 06/15/21 [Rx Last Taken Unknown] lidocaine [Lidoderm] 1 patch TOPICAL DAILY #6 ea 09/02/21 [Rx Last Taken Unknown] naproxen [Naprosyn] 500 mg PO BID PRN #20 tab 09/02/21 [Rx Last Taken Unknown] sertraline 50 mg PO DAILY 09/02/21 [History Last Taken Unknown] bacitracin 1 applic TOPICAL BID 11/22/21 [History Last Taken Unknown] prednisone 40 mg PO DAILY 7 Days #14 tab 11/22/21 [Rx Last Taken Unknown] sulfamethoxazole-trimethoprim 1 tab PO BID 11/22/21 [History Last Taken Unknown] ondansetron 4 mg PO Q8H PRN PRN #10 tab 11/24/21 [Rx Last Taken Unknown] Allergy/AdvReac Type Severity Reaction Status Date / Time amoxicillin [From Augmentin] Allergy Other Verified 09/27/21 18:53 amoxicillin trihydrate Allergy Other Verified 09/27/21 18:53 [From Augmentin] azithromycin Allergy Other Verified 09/27/21 18:53 clavulanic acid Allergy Other Verified 09/27/21 18:53 [From Augmentin] erythromycin base Allergy Unknown Verified 09/27/21 18:53 [From E-Mycin] potassium clavulanate Allergy Other Verified 09/27/21 18:53 [From Augmentin] ibuprofen AdvReac Nausea Verified 09/27/21 18:53 Surgical History History of ear surgery History of eye surgery Social History household members: other details: Lives with her grandmother Smoking Status: Never smoker alcohol intake: never substance use type: does not use ROS ROS ED ROS Narrative Denies recent illness. Review of Systems ROS Unobtainable: Denies due to encephalopathy Constitutional Constitutional ED: Denies fever(s) Eyes Eyes: Denies change in vision ENT ENT ED: Denies ear pain Cardiovascular Cardiovascular: Denies chest pain Respiratory/Chest Respiratory/Chest: Denies dyspnea Gastrointestinal Gastrointestinal: Denies abdominal pain Genitourinary Genitourinary ED: Denies dysuria Musculoskeletal Musculoskeletal: Denies myalgias Integumentary Denies rash Neurologic Neurologic: Denies headache(s) Psychiatric Psychiatric: Denies depression Endocrine Endocrinology: Denies polyuria Hematologic/Lymphatic Hematologic/Lymphatic: Denies easy bruising Allergic/Immunologic Allergic/Immunologic ED: Denies urticaria EXAM Physical Exam Narrative Exam Narrative: 21-year-old female vital signs stable afebrile. H EENT exam unremarkable. Moist membranes. Neck nontender. Scalp atraumatic. Lungs are clear. Heart regular rhythm. Abdomen morbidly obese but soft. Nontender. Nondistended. No peritoneal signs. Moving all 4 extremities. Neurovascular intact. Nontender no deformity. Back there is not any signs of trauma to her back. No bruising. No abrasions or contusions. Spine is nontender. She complains of soft tissue tenderness along the iliac crest. There is no redness or warmth. Neurologically she is awake alert with no focal motor or sensory deficits. Const Vital Signs: 12/26/21 17:02 Temperature 95.7 F L Temperature Source Temporal Pulse Rate 82 Respiratory Rate 16 Blood Pressure 146/94 H Blood Pressure Mean 111 Pulse Ox 96 Oxygen Delivery Method Room Air Positive well nourished, well developed and obese; Negative for cachectic, contractures or unkempt General Appearance ED: well developed and NAD; Negative for unkempt, cachectic, contractures or pallor Nutritional Appearance: obese; Negative for cachectic HEENT Reports moist mucous membranes Negative for trauma or tenderness Eyes PERRL and EOMs intact bilaterally General Eye ED: Negative for pale conjunctiva or scleral icterus Neck no lymphadenopathy, supple and no JVD General: Negative for tenderness Resp normal respiratory effort and clear to auscultation bilaterally Effort and Inspection: Negative for pain with movement or other Auscultation: Negative for rales or rhonchi Cardio regular rate, regular rhythm, S1 normal heart sound, S2 normal heart sound and no murmurs GI normal to inspection, nondistended, normoactive bowel sounds, soft to palpation, non-tender, non-distended and no masses Inspection: Negative for abdominal distention Palpation: Negative for tender, guarding or rebound tenderness present Back/Spine normal to inspection and no thoracic nor lumbar tenderness General Back: Negative for CVA tenderness or scar(s) Cervical Spine: Negative for cervical spine tenderness and Negative for paracervical muscle tenderness Thoracic Spine / Upper Back: paraspinal muscle tenderness Lumbar Spine / Lower Back: Negative for straight leg raise positive right Extremity normal to inspection General Extremety ED: Negative for edema or tenderness General Extremity: Negative for edema Neuro oriented x3 Sensorium / Orientation: alert; Negative for confused, lethargic or stuporous Motor Exam: strength 5/5 throughout Psych mental status grossly normal Appearance: Negative for unkempt Mood & Affect: Negative for depressed Skin no rashes or lesions noted and no wounds General Skin Exam: Negative for jaundice or pallor MDM MDM MDM Narrative Medical decision making narrative: Patient complaining of lower back pain post fall. There is no spinal tenderness. There is no signs of trauma. She will be given p.o. Motrin discharged home. Follow-up if not improving. She does not need imaging at this time. Discharge Plan Triage Chief Complaint: Back ED Provider: Godfrey Mcintosh Dx/Rx/DC Orders Clinical Impression: Fall, Back contusion Instructions: ED Back Contusion Prescriptions: No Action levothyroxine 75 mcg tablet 1 tab PO DAILY RF: 0 norethindrone (contraceptive) 0.35 MG tablet 1 tab PO DAILY RF: 0 meclizine 25 mg tablet 25 mg PO TID PRN (Reason: vertigo) Qty: 20 RF: 0 clotrimazole 1 % cream 1 applic topical BID Qty: 15 RF: 0 sertraline 50 mg tablet 50 mg PO DAILY RF: 0 naproxen [Naprosyn] 500 mg tablet 500 mg PO BID PRN (Reason: pain) Qty: 20 RF: 0 lidocaine [Lidoderm] 5 % adhesive patch,medicated 1 patch topical DAILY Qty: 6 RF: 0 bacitracin 500 unit/gram ointment 1 applic TOPICAL BID RF: 0 sulfamethoxazole-trimethoprim 800-160 mg tablet 1 tab PO BID RF: 0 prednisone 20 mg tablet 40 mg PO DAILY 7 Days Qty: 14 RF: 0 ondansetron [ondansetron] 4 MG tablet 4 mg PO Q8H PRN PRN (Reason: Nausea) Qty: 10 RF: 0 Primary Care Provider: Gregor Trujillo Referrals: Gregor Trujillo MD [Primary Care Provider] - 3-5 Days if not improving Activity Restrictions/Additional Instructions: Ice to your back. Motrin for pain. Follow-up with your doctor if not improving. Disposition Disposition: Home, Self Care
[2021-12-26] MEDS: Ibuprofen 600 MG Tablet PO (17:57)
--- NOTE | 2021-12-26 17:59 | ED.RN ---
Patient has an adverse reaction,nausea, from ibuprofen listed in allergies, denies severe allergy and states can take medication. Dr. Mcintosh approves and pateient requests ibuprofen instead of tylenol.
== END 2021-12-26 18:01 | disposition home or self-care (01) ==
PROVIDERS: Emergency Provider Emergency Medicine; PCP Family Medicine; Visit Provider Emergency Medicine
DX: S20.229A Contusion of unspecified back wall of thorax, initial encounter (principal); E66.9 Obesity, unspecified; W19.XXXA Unspecified fall, initial encounter
CPT/HCPCS: 99283

== ENCOUNTER 2022-01-12 00:03 | Emergency (ER) | payer MEDICAID, SELFPAY ==
[2022-01-12 00:04] VITALS: BP 153/93; PULSE 86; RESP 16; TEMP 36.6; O2SAT 97; BMI 43.9
--- NOTE | 2022-01-12 00:16 | RAD_ITS ---
STUDY: COMPLETE LEFT ANKLE SERIES OF 0028 HOURS ON 01/12/2022: REASON FOR EXAM: 21-year-old female with a left ankle injury and pain. TECHNIQUE: 3 view(s) of the ankle. COMPARISON: None. FINDINGS: Normal visualized distal tibia and fibula. Normal medial and lateral malleoli. Normal tibiotalar articulation and ankle mortise. Normal visualized talus and calcaneus. Balanced ankle mortise. No arthritic or degenerative changes. The visualized subtalar, talonavicular, calcaneocuboid and tarsal articulations are normal. No fractures or dislocations. Minute Achilles spur. The soft tissue structures are unremarkable. RAD/Ankle min 3 Views IMPRESSION: 1. No fractures or dislocations. 2. Balanced ankle mortise. No arthritic or degenerative changes. 3. Minute Achilles spur. Electronically Signed: Luis Angel Summers MD at 0:51 EDT ,
--- NOTE | 2022-01-12 00:17 | ED.VIS.FALL ---
HPI HPI - Fall History of Present Illness Chief Complaint: Fall Informant: patient and parent Occured/Mechanism Occurred: Today (Just prior to arrival) Mechanism/Context: Yes slip Narrative: In bathtub Pain/Injury Location: Chest, face, left ankle Current Severity: Mild Maximum Severity: Moderate Worsened by: Weightbearing Relieved by: Resting Associated Symptoms Associated Symptoms: Negative for Parasthesias, Weakness, Loss of function, Inability to ambulate and Loss of consciousness Narrative Narrative: Patient slipped and fell in the bathtub. She hit her left eyebrow, the left lateral ankle, and she was not sure about her chest but she started having some soreness when she raised her arms up to wash her hair afterwards. She denies any trouble breathing or pleuritic discomfort. No other symptoms or injuries. She was able to walk, but with some mild difficulty on her left ankle. She states that she twisted it a couple days ago but now it is hurting worse since she hit it on the tub. 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 HTN (hypertension) Injury of left toe Intellectual disability Knee pain Madelung's deformity Nondisplaced fracture of middle phalanx of left lesser toe(s), initial encounter for closed fracture Nondisplaced fracture of proximal phalanx of left lesser toe(s), initial encounter for closed fracture Oppositional defiant disorder Right wrist sprain Severe headache Sprain of right hand Thyroid disease Undersocialized conduct disorder, aggressive type, moderate Home Medications norethindrone (contraceptive) 1 tab PO DAILY 01/21/19 [History Last Taken 04/22/19] levothyroxine 75 mcg tablet 1 tab PO DAILY 07/02/20 [History Last Taken Unknown] meclizine 25 mg PO TID PRN #20 tab 01/31/21 [Rx Last Taken Unknown] clotrimazole 1 applic TOPICAL BID #15 g 06/15/21 [Rx Last Taken Unknown] lidocaine [Lidoderm] 1 patch TOPICAL DAILY #6 ea 09/02/21 [Rx Last Taken Unknown] naproxen [Naprosyn] 500 mg PO BID PRN #20 tab 09/02/21 [Rx Last Taken Unknown] bacitracin 1 applic TOPICAL BID 11/22/21 [History Last Taken Unknown] ondansetron 4 mg PO Q8H PRN PRN #10 tab 11/24/21 [Rx Last Taken Unknown] cetirizine 10 mg tablet 10 mg PO tab 01/01/22 [History Last Taken Unknown] triamcinolone acetonide 0.1 % topical cream 1 applic TOPICAL g 01/01/22 [History Last Taken Unknown] Allergy/AdvReac Type Severity Reaction Status Date / Time amoxicillin [From Augmentin] Allergy Other Verified 01/01/22 10:54 amoxicillin trihydrate Allergy Other Verified 01/01/22 10:54 [From Augmentin] azithromycin Allergy Other Verified 01/01/22 10:54 clavulanic acid Allergy Other Verified 01/01/22 10:54 [From Augmentin] erythromycin base Allergy Unknown Verified 01/01/22 10:54 [From E-Mycin] potassium clavulanate Allergy Other Verified 01/01/22 10:54 [From Augmentin] ibuprofen AdvReac Nausea Verified 01/01/22 10:54 Surgical History History of ear surgery History of eye surgery Social History household members: other details: Lives with her grandmother Smoking Status: Never smoker alcohol intake: never substance use type: does not use ROS ROS ED Constitutional Constitutional ED: Denies chills or fever(s) Eyes Eyes: Denies change in vision or diplopia ENT ENT ED: Denies ear pain, epistaxis, facial pain or rhinorrhea Cardiovascular Cardiovascular: Denies chest pain or palpitations Respiratory/Chest Respiratory/Chest: Denies cough or dyspnea Gastrointestinal Gastrointestinal: Denies abdominal pain, diarrhea, melena, nausea or vomiting Genitourinary Genitourinary ED: Denies dysuria or hematuria Musculoskeletal Musculoskeletal: Denies back pain, extremity pain or neck pain Integumentary Denies abscess, Abrasions, laceration or rash Neurologic Neurologic: Denies confusion, headache(s), paresthesias or weakness EXAM Physical Exam Const Vital Signs: 01/12/22 00:04 Temperature 97.8 F Temperature Source Oral Pulse Rate 86 Respiratory Rate 16 Blood Pressure 153/93 H Blood Pressure Mean 113 Pulse Ox 97 Oxygen Delivery Method Room Air Positive well nourished and well developed General Appearance ED: well developed and NAD Nutritional Appearance: morbidly obese HEENT Reports nasal mucous membranes and turbinates normal HEENT Narrative: Tenderness left superior orbital brim with an exterior abrasion no laceration. No crepitance. No enophthalmos, proptosis, or evidence of globe trauma. Midface nontender and stable. Nose nontender. Face and Sinus: Negative for facial tenderness Eyes PERRL and EOMs intact bilaterally Visual Acuity: other Other Details: no entrapment or pain with extraocular movements Neck full ROM and supple General: Negative for tenderness Chest Wall inspection of chest normal and palpation of chest normal Chest Narrative: Mild tenderness left parasternal area without any outward signs of trauma throughout the chest. No splinting on deep inspiration. Chest: symmetrical chest wall rise and tenderness; Negative for crepitus Resp normal respiratory effort and clear to auscultation bilaterally Percussion: other equal BS bilat Cardio no murmurs Rate: regular rate Rhythm: regular rhythm GI normal to inspection, nondistended, normoactive bowel sounds, soft to palpation and non-tender Back/Spine normal ROM Cervical Spine: Negative for cervical spine tenderness Thoracic Spine / Upper Back: Negative for thoracic spinal tenderness Lumbar Spine / Lower Back: Negative for lumbar spinal tenderness Extremity normal to inspection and full ROM Extremity Narrative: Tender left lateral malleolus. Nontender at the medial malleolus, base of the fifth metatarsal, the rest of the foot, and the proximal fibula. Normal inspection, no deformities. Otherwise extremities nontender and full range of motion. General Extremety ED: Yes tenderness Neuro oriented x3, CN's II-XII intact bilaterally, moves all extremities, no focal motor deficits and no sensory deficits noted [place] Coma Scale: document GCS findings Spontaneous Obeys Commands Oriented 15 Sensorium / Orientation: awake and alert Psych mental status grossly normal and thought process normal Skin Skin Narrative: Abrasion just above left eyebrow no other wounds Lesions: no lesions Rashes: no rashes MDM MDM MDM Narrative Medical decision making narrative: Three-view x-ray series of the left ankle on my interpretation negative for any fracture dislocation. Patient reassured given an Gene wrap and Tylenol and instructions for follow-up as needed. I do not think she needs x-rays of her head, face, or sternum at this time. Supportive care advised. Discharge Plan Triage Chief Complaint: Fall ED Provider: Reji Henderson Dx/Rx/DC Orders Clinical Impression: Mild sprain of left ankle, Contusion of face, Chest wall contusion, Fall from slipping Instructions: ED Bandage Elastic Wrap, ED Ankle Sprain (Adult) Prescriptions: No Action levothyroxine 75 mcg tablet 1 tab PO DAILY RF: 0 triamcinolone acetonide 0.1 % cream 1 applic topical RF: 0 cetirizine 10 mg tablet 10 mg PO RF: 0 norethindrone (contraceptive) 0.35 MG tablet 1 tab PO DAILY RF: 0 meclizine 25 mg tablet 25 mg PO TID PRN (Reason: vertigo) Qty: 20 RF: 0 clotrimazole 1 % cream 1 applic topical BID Qty: 15 RF: 0 naproxen [Naprosyn] 500 mg tablet 500 mg PO BID PRN (Reason: pain) Qty: 20 RF: 0 lidocaine [Lidoderm] 5 % adhesive patch,medicated 1 patch topical DAILY Qty: 6 RF: 0 bacitracin 500 unit/gram ointment 1 applic TOPICAL BID RF: 0 ondansetron [ondansetron] 4 MG tablet 4 mg PO Q8H PRN PRN (Reason: Nausea) Qty: 10 RF: 0 Primary Care Provider: Gregor Trujillo Referrals: Gregor Trujillo MD [Primary Care Provider] - As Needed Disposition Disposition: Home, Self Care
[2022-01-12] MEDS: Acetaminophen 325 MG Tablet 650 MG PO (00:45)
[2022-01-12 00:47] VITALS: BP 148/78; PULSE 80; RESP 16; O2SAT 97
== END 2022-01-12 00:48 | disposition home or self-care (01) ==
LOC: ED 00:29
PROVIDERS: Emergency Provider Emergency Medicine; PCP Family Medicine; Visit Provider Emergency Medicine
DX: S93.402A Sprain of unspecified ligament of left ankle, initial encounter (principal); S00.83XA Contusion of other part of head, initial encounter; S20.20XA Contusion of thorax, unspecified, initial encounter; I10 Essential (primary) hypertension; R26.2 Difficulty in walking, not elsewhere classified; W18.2XXA Fall in (into) shower or empty bathtub, initial encounter; Y93.E1 Activity, personal bathing and showering; E07.9 Disorder of thyroid, unspecified; Z79.890 Hormone replacement therapy; Z79.899 Other long term (current) drug therapy
CPT/HCPCS: 73610; 99283

== ENCOUNTER 2022-02-12 16:28 | Emergency (ER) | payer MEDICAID, SELFPAY ==
[2022-02-12 16:29] VITALS: BP 154/108; PULSE 103; RESP 16; TEMP 37.1; O2SAT 96; BMI 44.8
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
[2022-02-12] MEDS: Ibuprofen 600 MG Tablet PO (17:01)
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
== END 2022-02-12 18:31 | disposition home or self-care (01) ==
PROVIDERS: Emergency Provider Emergency Medicine; PCP Family Medicine; Visit Provider Emergency Medicine
DX: S60.212A Contusion of left wrist, initial encounter (principal); S93.402A Sprain of unspecified ligament of left ankle, initial encounter; V43.62XA Car passenger injured in collision with other type car in traffic accident, initial encounter; I10 Essential (primary) hypertension; E07.9 Disorder of thyroid, unspecified; Z79.890 Hormone replacement therapy; Z79.899 Other long term (current) drug therapy
CPT/HCPCS: 73110; 73721; 99284

== ENCOUNTER → 2022-02-12 | Outpatient (CLI) | payer MEDICAID, SELFPAY ==
--- NOTE | 2022-02-12 07:32 | MRI_ITS ---
STUDY: MRI LEFT ANKLE WITHOUT CONTRAST REASON FOR EXAM: Left ankle pain, left ankle injury. TECHNIQUE: Standardized fat and water weighted pulse sequences were obtained in all 3 orthogonal planes. COMPARISON: Radiographs 01/12/2022. FINDINGS: Normal subcutis adipose space. Normal posterior tibialis tendon. Normal flexor digitorum longus tendon. Normal flexor hallucis longus tendon. Normal peroneus longus and brevis tendons. Normal tibialis anterior tendon. Normal extensor hallucis longus tendon. Normal extensor digitorum longus tendons. Normal Achilles tendon and teno-osseous insertion. Normal plantar fascia. Normal plantar calcaneal tubercles. Normal intrinsic muscles of the rearfoot. Normal distal tibiofibular syndesmotic ligamentous complex. Normal lateral ligamentous complex. There is a small cyst in the sinus tarsi (inversion recovery sagittal image 15) measuring 0.8 cm in AP dimension. Normal deltoid ligamentous complexes. Normal plantar calcaneonavicular (spring) ligament. Normal tibiotalar articulation. Normal talar dome. Normal subtalar articulations. Normal talonavicular articulation. Normal calcaneocuboid articulation. Normal navicular-cuneiform articulations. There is very mild bone edema in the plantar aspect of the middle cuneiform (inversion recovery sagittal image 11). MRI/Lower Ext Joint Only (Routine) IMPRESSION: Very mild bone contusion of the plantar aspect of the middle cuneiform. Small cyst in the sinus tarsi. Otherwise, unremarkable MRI of the left ankle. Electronically Signed: Sanya Toussaint MD at 9:34 EDT ,
== END | disposition home or self-care (01) ==
LOC: MRI 07:32
PROVIDERS: PCP Family Medicine
DX: S93.402A Sprain of unspecified ligament of left ankle, initial encounter (principal)
CPT/HCPCS: 73721

== ENCOUNTER 2022-03-08 13:22 | Emergency (ER) | payer MEDICAID, SELFPAY ==
[2022-03-08 13:23] VITALS: BP 154/97; PULSE 86; RESP 14; TEMP 36.5; O2SAT 97; BMI 31.3
--- NOTE | 2022-03-08 13:46 | EDS_ITS ---
HPI HPI - URI History of Present Illness Chief Complaint: Sore Throat Detail of Chief Complaint: Sore throat since January Informant: patient Onset/Context/Timing Onset: Month(s) Context: Sudden Onset Timing: Continuous Quality: Throat pain Location: Posterior pharynx Current Severity: Mild Maximum Severity: Mild Worsened by: Not Worsened By Swallowing, Eating Solids and Drinking Liquids Associated Symptoms Associated Symptoms: Positive for Nasal Congestion and Nonproductive cough; Negative for Headache, Sinus Pressure, Myalgias, Nausea, Vomiting, Diarrhea, Shortness of Breath, Chest Pain and Hemoptysis Narrative Narrative: Patient is a 21-year-old who presents with sore throat since the beginning of January. She woke up her sleeve and stated she needed IV because she is dehydrated. I informed patient that I did ask her question determine what she may or may not have and what is appropriate treatment. Patient denies fever, chills night sweats. She does report rhinorrhea and congestion. She does report sore throat. She also endorses cough. She denies ear pain. She believes she is dehydrated. She denies decreased urine output. She denies dark-colored urine. She denies vomiting or diarrhea. She has not noted a rash. Prior similar symptoms: Yes Recent Illness/Hospitalization: No ROS ROS ED Constitutional Constitutional ED: Denies chills, fever(s), subjective, sweats or weight loss Eyes Eyes: Denies blurry vision, change in vision or diplopia ENT ENT ED: Reports rhinorrhea and sore throat; Denies ear pain Cardiovascular Cardiovascular: Denies chest pain, orthopnea or palpitations Respiratory/Chest Respiratory/Chest: Reports cough; Denies dyspnea, dyspnea on exertion, orthopnea or sputum Gastrointestinal Gastrointestinal: Denies diarrhea, nausea or vomiting Genitourinary Genitourinary ED: Denies dysuria, hematuria or urinary frequency Integumentary Denies rash Neurologic Neurologic: Denies headache(s) or paresthesias Hematologic/Lymphatic Hematologic/Lymphatic: Denies easy bruising [facility] Medical History ADHD Anemia Fatigue 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 HTN (hypertension) Injury of left toe Intellectual disability Knee pain 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 Nondisplaced fracture of middle phalanx of left lesser toe(s), initial encounter for closed fracture Nondisplaced fracture of proximal phalanx of left lesser toe(s), initial encounter for closed fracture Oppositional defiant disorder Right wrist sprain Severe headache Sprain of right hand Thyroid disease Undersocialized conduct disorder, aggressive type, moderate Home Medications norethindrone (contraceptive) 1 tab PO DAILY 01/21/19 [History Last Taken 04/22/19] levothyroxine 75 mcg tablet 1 tab PO DAILY 07/02/20 [History Last Taken Unknown] meclizine 25 mg PO TID PRN #20 tab 01/31/21 [Rx Last Taken Unknown] clotrimazole 1 applic TOPICAL BID #15 g 06/15/21 [Rx Last Taken Unknown] lidocaine [Lidoderm] 1 patch TOPICAL DAILY #6 ea 09/02/21 [Rx Last Taken Unknown] naproxen [Naprosyn] 500 mg PO BID PRN #20 tab 09/02/21 [Rx Last Taken Unknown] bacitracin 1 applic TOPICAL BID 11/22/21 [History Last Taken Unknown] ondansetron 4 mg PO Q8H PRN PRN #10 tab 11/24/21 [Rx Last Taken Unknown] cetirizine 10 mg tablet 10 mg PO tab 01/01/22 [History Last Taken Unknown] triamcinolone acetonide 0.1 % topical cream 1 applic TOPICAL g 01/01/22 [History Last Taken Unknown] Allergy/AdvReac Type Severity Reaction Status Date / Time amoxicillin [From Augmentin] Allergy Other Verified 03/08/22 13:25 amoxicillin trihydrate Allergy Other Verified 03/08/22 13:25 [From Augmentin] azithromycin Allergy Other Verified 03/08/22 13:25 clavulanic acid Allergy Other Verified 03/08/22 13:25 [From Augmentin] erythromycin base Allergy Unknown Verified 03/08/22 13:25 [From E-Mycin] potassium clavulanate Allergy Other Verified 03/08/22 13:25 [From Augmentin] ibuprofen AdvReac Nausea Verified 03/08/22 13:25 Surgical History History of ear surgery History of eye surgery Social History household members: other details: Lives with her grandmother Smoking Status: Never smoker alcohol intake: never substance use type: does not use EXAM Physical Exam Const Vital Signs: 03/08/22 13:23 Temperature 97.7 F L Temperature Source Temporal Pulse Rate 86 Respiratory Rate 14 Blood Pressure 154/97 H Blood Pressure Mean 116 Pulse Ox 97 Oxygen Delivery Method Room Air Positive well nourished, well developed and obese General Appearance ED: well developed and NAD; Negative for cyanotic, diaphoretic or pallor Nutritional Appearance: obese HEENT Reports moist mucous membranes normocephalic and atraumatic External Ear: external ears normal, mastoids normal and no preauricular geronimo nopathy External Auditory Canal: EAC's normal Tympanic Membrane ED: Yes TM's normal bilaterally Throat: posterior oropharynx normal Eyes PERRL and EOMs intact bilaterally General Eye ED: Negative for pale conjunctiva or scleral icterus Neck no lymphadenopathy, supple, no meningeal signs and no JVD Resp normal respiratory effort and clear to auscultation bilaterally Cardio S1 normal heart sound, S2 normal heart sound and no murmurs Rate: regular rate Rhythm: regular rhythm Neuro oriented x3 and CN's II-XII intact bilaterally Sensorium / Orientation: alert Psych Negative for mental status grossly normal Mood & Affect: depressed Skin General Skin Exam: Negative for jaundice or pallor Lesions: no lesions Rashes: no rashes MDM MDM MDM Narrative Medical decision making narrative: Centor score is 0. Since symptom score is 0 and she had symptoms beginning of January rapid strep was not obtained. Patient was informed there is no need for an IV and clinically she is not dehydrated. Discharge Plan Triage Chief Complaint: Sore Throat ED Provider: Jerson Gustafson Dx/Rx/DC Orders Clinical Impression: Pharyngitis, Upper respiratory infection with cough and congestion Instructions: ED URI, Viral, No Abx (Adult) Prescriptions: No Action levothyroxine 75 mcg tablet 1 tab PO DAILY RF: 0 triamcinolone acetonide 0.1 % cream 1 applic topical RF: 0 cetirizine 10 mg tablet 10 mg PO RF: 0 norethindrone (contraceptive) 0.35 MG tablet 1 tab PO DAILY RF: 0 meclizine 25 mg tablet 25 mg PO TID PRN (Reason: vertigo) Qty: 20 RF: 0 clotrimazole 1 % cream 1 applic topical BID Qty: 15 RF: 0 naproxen [Naprosyn] 500 mg tablet 500 mg PO BID PRN (Reason: pain) Qty: 20 RF: 0 lidocaine [Lidoderm] 5 % adhesive patch,medicated 1 patch topical DAILY Qty: 6 RF: 0 bacitracin 500 unit/gram ointment 1 applic TOPICAL BID RF: 0 ondansetron [ondansetron] 4 MG tablet 4 mg PO Q8H PRN PRN (Reason: Nausea) Qty: 10 RF: 0 Primary Care Provider: Gregor Trujillo Referrals: Gregor Trujillo MD [Primary Care Provider] - 1 Week if not improving Disposition Disposition: Home, Self Care
== END 2022-03-08 13:53 | disposition home or self-care (01) ==
PROVIDERS: Emergency Provider Emergency Medicine; PCP Family Medicine; Visit Provider Emergency Medicine
DX: J06.9 Acute upper respiratory infection, unspecified (principal); I10 Essential (primary) hypertension; E07.9 Disorder of thyroid, unspecified; E66.9 Obesity, unspecified; Z79.890 Hormone replacement therapy; Z79.899 Other long term (current) drug therapy
CPT/HCPCS: 99282

== ENCOUNTER 2022-03-31 20:32 | Emergency (ER) | payer MEDICAID, SELFPAY ==
[2022-03-31 20:32] VITALS: BP 129/97; PULSE 104; RESP 15; TEMP 36.2; O2SAT 96; BMI 43.0
--- NOTE | 2022-03-31 22:37 | EX.ED.DYSGE1 ---
HPI History of Present Illness Chief Complaint: Nausea/Vomiting Informant: patient and legal guardian Narrative Narrative: Patient presents with a couple complaints. 1 is that she has been getting some nausea for 2 or 3 weeks. It sounds like she is not actually vomiting. She does get sour taste in her mouth. She sometimes gets abdominal pain but does not recall where it occurs. She is not having abdominal pain now. She does have mild nausea now. No chest pain no fevers chills. She had 1 episode of diarrhea about 3 days ago but otherwise normal bowel movements. She is able to eat and drink. She is small amounts and she drinks Sprite and 7-Up. She is not on anything for acid reduction. Patient also states that sometimes her arms feel tired. They are not actually weak. She also complains that she has soreness of her right hand at the base of her thumb after she fell at home 1 to 2 weeks ago. She tripped on some coolness at somebody working on the house had left. 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 Nondisplaced fracture of middle phalanx of left lesser toe(s), initial encounter for closed fracture Nondisplaced fracture of proximal phalanx of left lesser toe(s), initial encounter for closed fracture Oppositional defiant disorder Right wrist sprain Severe headache Sprain of right hand Thyroid disease Undersocialized conduct disorder, aggressive type, moderate Home Medications norethindrone (contraceptive) 0.35 mg tablet 1 tab PO DAILY hormones/ control 01/21/19 [History Last Taken 04/22/19] levothyroxine 75 mcg tablet 1 tab PO DAILY 07/02/20 [History Last Taken Unknown] meclizine 25 mg tablet 25 mg PO TID PRN vertigo #20 tabs 01/31/21 [Rx Last Taken Unknown] clotrimazole 1 % topical cream 1 applic topical BID #15 grams 06/15/21 [Rx Last Taken Unknown] lidocaine 5 % topical patch (Lidoderm) 1 patch topical DAILY #6 ea 09/02/21 [Rx Last Taken Unknown] naproxen 500 mg tablet (Naprosyn) 500 mg PO BID PRN pain #20 tabs 09/02/21 [Rx Last Taken Unknown] bacitracin 500 unit/gram topical ointment 1 applic topical BID 11/22/21 [History Last Taken Unknown] ondansetron 4 mg disintegrating tablet 4 mg PO Q8H PRN PRN Nausea #10 tabs 11/24/21 [Rx Last Taken Unknown] cetirizine 10 mg tablet 10 mg PO 01/01/22 [History Last Taken Unknown] triamcinolone acetonide 0.1 % topical cream 1 applic topical 01/01/22 [History Last Taken Unknown] ondansetron 4 mg disintegrating tablet 4 mg PO Q8H PRN nausea and vomiting #10 tabs 03/31/22 [Rx Last Taken Unknown] Allergy/AdvReac Type Severity Reaction Status Date / Time amoxicillin [From Augmentin] Allergy Other Verified 03/31/22 20:39 amoxicillin trihydrate Allergy Other Verified 03/31/22 20:39 [From Augmentin] azithromycin Allergy Other Verified 03/31/22 20:39 clavulanic acid Allergy Other Verified 03/31/22 20:39 [From Augmentin] erythromycin base Allergy Unknown Verified 03/31/22 20:39 [From E-Mycin] potassium clavulanate Allergy Other Verified 03/31/22 20:39 [From Augmentin] ibuprofen AdvReac Nausea Verified 03/31/22 20:39 Surgical History History of ear surgery History of eye surgery Social History household members: other details: Lives with her grandmother Smoking Status: Never smoker alcohol intake: never substance use type: does not use ROS ROS ED Constitutional Constitutional ED: Denies chills, fever(s) or subjective Eyes Eyes: Denies change in vision ENT ENT ED: Denies rhinorrhea or sore throat Cardiovascular Cardiovascular: Denies chest pain or palpitations Respiratory/Chest Respiratory/Chest: Denies cough or dyspnea Gastrointestinal Gastrointestinal: Reports abdominal pain, diarrhea and nausea; Denies vomiting Genitourinary Genitourinary ED: Denies dysuria, hematuria or urinary frequency Musculoskeletal Musculoskeletal: Reports other Details: Right hand pain. ; Denies arthralgias or myalgias Integumentary Denies abscess, Abrasions or rash Neurologic Neurologic: Reports weakness and other Details: Sometimes her arms feel heavy. This usually occurs when she is overall tired. She has no numbness or tingling. She does not have the symptoms now. ; Denies paresthesias Psychiatric Psychiatric: Reports anxiety and depression Endocrine Endocrinology: Denies polydipsia or polyuria Hematologic/Lymphatic Hematologic/Lymphatic: Denies easy bleeding or easy bruising Allergic/Immunologic Allergic/Immunologic ED: Denies urticaria EXAM Physical Exam Const Vital Signs: 03/31/22 20:32 Temperature 97.2 F L Temperature Source Temporal Pulse Rate 104 H Respiratory Rate 15 Blood Pressure 129/97 H Blood Pressure Mean 107 Pulse Ox 96 Oxygen Delivery Method Room Air Positive well nourished and well developed General Appearance ED: well developed and NAD; Negative for cyanotic or diaphoretic HEENT Reports moist mucous membranes; Denies dry mucous membranes Mouth ED: No dry mucous membranes Mouth: No dry mucous membranes Eyes EOMs intact bilaterally General Eye ED: Negative for scleral icterus Neck supple Chest Wall inspection of chest normal Resp normal respiratory effort and clear to auscultation bilaterally Cardio regular rate, regular rhythm and no murmurs GI normal to inspection, nondistended, normoactive bowel sounds, non-tender, non-distended and no masses; Negative for hepatosplenomegaly GI Narrative: Very benign abdomen Back/Spine no CVA tenderness Extremity Extremity Narrative: Patient complains of pain mostly at the thenar eminence in the right hand. No deformity noted. Neuro Sensorium / Orientation: alert Psych mental status grossly normal Skin no rashes or lesions noted MDM MDM MDM Narrative Medical decision making narrative: Patient's labs show nonspecific elevation of white count. Remainder of CBC is normal. Electrolytes are normal including BUN and creatinine. Liver function test are normal. Lipase is not elevated. is negative. X-ray is negative. Is Patient has no vomiting here. She is able to tolerate fluids. She has used Zofran off and on. It sounds like she has some chronic recurrent issues with nausea. I will get her some Zofran. She can follow-up with her primary physician. Lab Data Attestation: I reviewed the patient's lab results. Labs: Laboratory Results - last 24 hr 03/31/22 03/31/22 03/31/22 22:50 22:50 22:50 WBC 11.9 H RBC 4.88 Hgb 14.1 Hct 45.1 MCV 92.4 MCH 28.9 MCHC 31.3 L RDW Std Deviation 45.9 H RDW Coeff of Alcon 13.5 Plt Count 351 MPV 10.1 Immature Gran % (Auto) 0.300 Neut % (Auto) 52.6 Lymph % (Auto) 33.6 [place] % (Auto) 10.2 H Eos % (Auto) 2.6 Baso % (Auto) 0.7 Absolute Neuts (auto) 6.3 Absolute Lymphs (auto) 4.00 Nucleated RBC % 0 Sodium 141 Potassium 3.9 Chloride 107 Carbon Dioxide 28.0 Anion Gap 6 BUN 10 Creatinine 0.72 Estim Creat Clear Calc 115.71 Est GFR (MDRD) Af Amer 131 Est GFR (MDRD) Non-Af 109 BUN/Creatinine Ratio 13.9 Glucose 88 Calcium 9.2 Total Bilirubin 0.40 AST 29 ALT 49 Alkaline Phosphatase 91 Total Protein 7.2 Albumin 3.7 Globulin 3.5 Albumin/Globulin Ratio 1.1 Lipase 67 L Serum , Qual NEGATIVE Radiography Diagnostic Testing: Clinical Impression(s) from Imaging Studies Hand X-Ray 03/31/22 22:42 IMPRESSION: Normal x-ray examination of the hand. Electronically Signed: Leonard Hernandez MD at 23:26 EDT , Discharge Plan Triage Chief Complaint: Nausea/Vomiting Other Complaint: Abd Pain ED Provider: Mike Lombardo Dx/Rx/DC Orders Clinical Impression: Nausea, Contusion of hand, right Instructions: Nausea Vomit Control, ED Hand Contusion Prescriptions: New ondansetron 4 mg tablet,disintegrating 4 mg PO Q8H PRN (Reason: nausea and vomiting) Qty: 10 0RF No Action levothyroxine 75 mcg tablet 1 tab PO DAILY triamcinolone acetonide 0.1 % cream 1 applic topical cetirizine 10 mg tablet 10 mg PO norethindrone (contraceptive) 0.35 MG tablet 1 tab PO DAILY meclizine 25 mg tablet 25 mg PO TID PRN (Reason: vertigo) Qty: 20 0RF clotrimazole 1 % cream 1 applic topical BID Qty: 15 0RF naproxen [Naprosyn] 500 mg tablet 500 mg PO BID PRN (Reason: pain) Qty: 20 0RF lidocaine [Lidoderm] 5 % adhesive patch,medicated 1 patch topical DAILY Qty: 6 0RF Rx Instructions: leave on most painful area for up to 12 hrs bacitracin 500 unit/gram ointment 1 applic TOPICAL BID ondansetron [ondansetron] 4 MG tablet 4 mg PO Q8H PRN PRN (Reason: Nausea) Qty: 10 0RF Primary Care Provider: Gregor Trujillo Referrals: Gregor Trujillo MD [Primary Care Provider] - As soon as possible Disposition Disposition: Home, Self Care
[2022-03-31] MEDS: Ondansetron ODT 4 MG Tablet 8 MG PO (22:42)
--- NOTE | 2022-03-31 22:42 | RAD_ITS ---
STUDY: X-RAY - RIGHT HAND REASON FOR EXAM: Female, 21 years old. Pain after trauma TECHNIQUE: 3 view(s) of the hand. COMPARISON: None. FINDINGS: Normal radiocarpal articulation. Normal distal radioulnar joint. Normal visualized carpal bones. Normal carpal articulations Normal carpometacarpal articulation of the thumb. Normal second through fifth carpometacarpal joints. Normal metacarpi. Normal metacarpophalangeal joint of the thumb. Normal interphalangeal joint of the thumb. Normal proximal and distal phalanges of the thumb. Normal metacarpophalangeal joints of the second through fifth fingers. Normal proximal and distal interphalangeal joints of the second through fifth fingers. Normal phalanges of the second through fifth fingers. The soft tissue structures are unremarkable. RAD/Hand Min 3 Views IMPRESSION: Normal x-ray examination of the hand. Electronically Signed: Leonard Hernandez MD at 23:26 EDT ,
[2022-03-31 23:02] LABS: Absolute Neutrophil Count 6.3 X10^3/uL (2.0-7.7); Basophil# 0.08 X10^3/uL; Basophil% 0.7 % (0-1); Eosinophil# 0.31 X10^3/uL; Eosinophils% 2.6 % (0-5); Hematocrit 45.1 % (37-47); Hemoglobin 14.1 g/dL (12.0-15.0); Lymphocyte % 33.6 % (19-41); Mean Corp Hgb Conc 31.3 g/dL (32-36); Mean Corpuscular Hgb 28.9 pg (27.0-32.0); Mean Corpuscular Volume 92.4 fL (81-99); Mean Platelet Vol. 10.1 fl (6.2-12.0); Monocyte# 1.21 X10^3/uL; Monocyte% 10.2 % (0-10); NRBC Flagged by Analyzer 0 % (0-5); Neutrophil # 6.29 X10^3/uL (2.7-7.7); Neutrophil % 52.6 % (47-70); Platelet Count 351 K/mm3 (150-450); RBC Distribution Width CV 13.5 % (11.6-14.6); RBC Distribution Width SD 45.9 fl (35.1-43.9); Red Blood Count 4.88 M/mm3 (4.2-5.4); White Blood Count 11.9 K/mm3 (4.4-11.0)
[2022-03-31 23:13] LABS: Internal QC Validated? YES +Cl - CLEAR BKGD; Pregnancy, Serum, hCG Quali. NEGATIVE Negative
[2022-03-31 23:23] LABS: ALB/GLOB Ratio 1.1 RATIO (0.9-2.4); AST(SGOT) 29 U/L (15-37); Alanine Aminotransfer ALT/SGPT 49 U/L (13-56); Albumin, Serum 3.7 g/dL (3.2-5.0); Alkaline Phosphatase 91 U/L (45-117); Anion Gap 6 (5-15); BUN 10 mg/dL (7-18); BUN/Creat Ratio 13.9 RATIO (10-20); Calcium,Total 9.2 mg/dL (8.5-10.1); Chloride 107 mmol/L (98-107); Creatinine, Serum 0.72 mg/dL (0.55-1.02); EST Glomerular Filtration Rate 109 mL/min (>60); Est Glom Filt Rate - Afr Amer 131 mL/min (>60); Estimated Creatinine Clearance 115.71 ml/min; Globulin 3.5 g/dL (2.2-4.2); Glucose 88 mg/dL (74-106); Lipase 67 U/L (73-393); Potassium 3.9 mmol/L (3.5-5.1); Protein, Total 7.2 g/dL (6.4-8.2); Sodium Level 141 mmol/L (136-145)
== END 2022-04-01 00:27 | disposition home or self-care (01) ==
PROVIDERS: Emergency Provider Emergency Medicine; PCP Family Medicine; Visit Provider Emergency Medicine
DX: R11.0 Nausea (principal); R10.9 Unspecified abdominal pain; R19.7 Diarrhea, unspecified; I10 Essential (primary) hypertension; S60.221A Contusion of right hand, initial encounter; Y92.019 Unspecified place in single-family (private) house as the place of occurrence of the external cause; Z79.890 Hormone replacement therapy; Z79.899 Other long term (current) drug therapy
CPT/HCPCS: 36415; 73130; 80053; 83690; 84703; 85025; 99283

== ENCOUNTER 2022-05-04 18:22 | Emergency (ER) | payer MEDICAID, SELFPAY ==
[2022-05-04 18:25] VITALS: BP 138/93; PULSE 103; RESP 18; TEMP 36.4; O2SAT 94; BMI 41.8
--- NOTE | 2022-05-04 20:37 | CM.ED ---
Social Work Note Reason for Referral: ED Care Plan SW reviewed chart and noted pt has a ED Care Plan. SW updated MD Lombardo. Rocio Ng [employer]
--- NOTE | 2022-05-04 21:03 | EDS_ITS ---
HPI History of Present Illness Chief Complaint: Lower Extremity Injury Informant: patient and legal guardian Narrative Narrative: Patient was referred in by the [facility] for right leg pain and concern for DVT. Patient states she felt fine. Yesterday she was swimming. She jumped off a diving board and hit the right calf on the back of the diving board. Since then its been sore. She has been up walking on it. Its not swollen. She has no chest pain or dyspnea. No history of DVT or PE. Rest makes it better. Pressing on it makes it worse. No other complaints. 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 HTN (hypertension) Injury of left toe Intellectual disability Knee pain 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 Nondisplaced fracture of middle phalanx of left lesser toe(s), initial encounter for closed fracture Nondisplaced fracture of proximal phalanx of left lesser toe(s), initial encounter for closed fracture Oppositional defiant disorder Right wrist sprain Severe headache Sprain of right hand Thyroid disease Undersocialized conduct disorder, aggressive type, moderate Home Medications norethindrone (contraceptive) 0.35 mg tablet 1 tab PO DAILY hormones/ control 01/21/19 [History Last Taken 04/22/19] meclizine 25 mg tablet 25 mg PO TID PRN vertigo #20 tabs 01/31/21 [Rx Last Taken Unknown] clotrimazole 1 % topical cream 1 applic topical BID #15 grams 06/15/21 [Rx Last Taken Unknown] lidocaine 5 % topical patch (Lidoderm) 1 patch topical DAILY #6 ea 09/02/21 [Rx Last Taken Unknown] naproxen 500 mg tablet (Naprosyn) 500 mg PO BID PRN pain #20 tabs 09/02/21 [Rx Last Taken Unknown] bacitracin 500 unit/gram topical ointment 1 applic topical BID 11/22/21 [History Last Taken Unknown] ondansetron 4 mg disintegrating tablet 4 mg PO Q8H PRN PRN Nausea #10 tabs 11/24/21 [Rx Last Taken Unknown] cetirizine 10 mg tablet 10 mg PO 01/01/22 [History Last Taken Unknown] triamcinolone acetonide 0.1 % topical cream 1 applic topical 01/01/22 [History Last Taken Unknown] ondansetron 4 mg disintegrating tablet 4 mg PO Q8H PRN nausea and vomiting #10 tabs 03/31/22 [Rx Last Taken Unknown] levothyroxine 88 mcg tablet 88 mcg PO DAILY 05/04/22 [History Last Taken Unknown] Allergy/AdvReac Type Severity Reaction Status Date / Time amoxicillin [From Augmentin] Allergy Other Verified 05/04/22 18:23 amoxicillin trihydrate Allergy Other Verified 05/04/22 18:23 [From Augmentin] azithromycin Allergy Other Verified 05/04/22 18:23 clavulanic acid Allergy Other Verified 05/04/22 18:23 [From Augmentin] erythromycin base Allergy Unknown Verified 05/04/22 18:23 [From E-Mycin] potassium clavulanate Allergy Other Verified 05/04/22 18:23 [From Augmentin] ibuprofen AdvReac Nausea Verified 05/04/22 18:23 Surgical History History of ear surgery History of eye surgery Social History household members: other details: Lives with her grandmother Smoking Status: Never smoker alcohol intake: never substance use type: does not use ROS ROS ED Constitutional Constitutional ED: Denies chills or fever(s) ENT ENT ED: Denies sore throat Cardiovascular Cardiovascular: Denies chest pain, palpitations or racing heartbeat Respiratory/Chest Respiratory/Chest: Denies cough or dyspnea Gastrointestinal Gastrointestinal: Denies nausea or vomiting Musculoskeletal Musculoskeletal: Reports myalgias and other Details: See history of present illness Integumentary Denies abscess, Abrasions or rash Neurologic Neurologic: Denies paresthesias or weakness Hematologic/Lymphatic Hematologic/Lymphatic: Denies easy bleeding or easy bruising Allergic/Immunologic Allergic/Immunologic ED: Denies urticaria EXAM Physical Exam Const Vital Signs: 05/04/22 18:25 Temperature 97.6 F L Temperature Source Temporal Pulse Rate 103 H Respiratory Rate 18 Blood Pressure 138/93 H Blood Pressure Mean 108 Pulse Ox 94 Oxygen Delivery Method Room Air Positive well nourished and well developed General Appearance ED: well developed and NAD HEENT Reports moist mucous membranes Eyes General Eye ED: Negative for scleral icterus Chest Wall inspection of chest normal Resp normal respiratory effort and clear to auscultation bilaterally Cardio regular rate and regular rhythm Rate: Negative for bradycardia or tachycardic GI normal to inspection, nondistended, normoactive bowel sounds and non-tender Back/Spine no CVA tenderness Extremity normal to inspection Extremity Narrative: No visible skin changes. There might be a subtle sign of early bruising to the right upper posterior medial calf. There is some mild tenderness in that area. But there is no cord. No proximal tenderness. The calf is the exact same size on both. Is no distended veins. Neuro oriented x3 Psych mental status grossly normal Skin no rashes or lesions noted MDM MDM MDM Narrative Medical decision making narrative: Patient has soreness after hitting her calf on a diving board. It is well localized. There is no edema. She has a Wells criteria of -2. I do not think this requires a an ultrasound. Ice rest Tylenol is appropriate. She and her legal guardian are okay with this. We did discuss that if she has worsening pain any swelling chest pain shortness of breath or other problems she should return acutely. Discharge Plan Triage Chief Complaint: Lower Extremity Injury ED Provider: Mike Lombardo Dx/Rx/DC Orders Clinical Impression: Contusion of right calf Instructions: ED Contusion, Lower Extremity Prescriptions: No Action triamcinolone acetonide 0.1 % cream 1 applic topical cetirizine 10 mg tablet 10 mg PO norethindrone (contraceptive) 0.35 MG tablet 1 tab PO DAILY meclizine 25 mg tablet 25 mg PO TID PRN (Reason: vertigo) Qty: 20 0RF clotrimazole 1 % cream 1 applic topical BID Qty: 15 0RF naproxen [Naprosyn] 500 mg tablet 500 mg PO BID PRN (Reason: pain) Qty: 20 0RF lidocaine [Lidoderm] 5 % adhesive patch,medicated 1 patch topical DAILY Qty: 6 0RF Rx Instructions: leave on most painful area for up to 12 hrs bacitracin 500 unit/gram ointment 1 applic TOPICAL BID ondansetron [ondansetron] 4 MG tablet 4 mg PO Q8H PRN PRN (Reason: Nausea) Qty: 10 0RF ondansetron 4 mg tablet,disintegrating 4 mg PO Q8H PRN (Reason: nausea and vomiting) Qty: 10 0RF levothyroxine 88 mcg tablet 88 mcg PO DAILY Label Comments: take 1 tablet by mouth once daily before breakfast Primary Care Provider: Gregor Trujillo Referrals: Gregor Trujillo MD [Primary Care Provider] - 1 Week if not improving Disposition Disposition: Home, Self Care
== END 2022-05-04 21:31 | disposition home or self-care (01) ==
PROVIDERS: Emergency Provider Emergency Medicine; PCP Family Medicine; Visit Provider Emergency Medicine
DX: S80.11XA Contusion of right lower leg, initial encounter (principal); W21.4XXA Striking against diving board, initial encounter; Y93.11 Activity, swimming; Y92.34 Swimming pool (public) as the place of occurrence of the external cause; I10 Essential (primary) hypertension
CPT/HCPCS: 99282

== ENCOUNTER 2022-05-07 21:07 | Emergency (ER) | payer MEDICAID, SELFPAY ==
[2022-05-07 21:08] VITALS: BP 150/99; PULSE 107; RESP 18; TEMP 36; O2SAT 95; BMI 41.8
--- NOTE | 2022-05-07 21:14 | EX.ED.GENINJ ---
HPI History of Present Illness Chief Complaint: Head Injury Detail of Chief Complaint: Head injury left parietal area Informant: patient and legal guardian Onset/Context/Timing Onset: Yesterday Mechanism/Context: Fall Location: Left parietal area Current Severity: 10/06 Maximum Severity: 04/05 Worsened by: Palpation Relieved by: Nothing Associated Symptoms Associated Symptoms: Negative for Parasthesias, Weakness, Loss of function, Inability to ambulate, Loss of consciousness or Amnesia Narrative Narrative: Patient is a 21-year-old who presents after head trauma. She apparently fell. She hit the left side of her head. There is no loss conscious. She not amnestic. She has had no vomiting. She denies neck pain. Denies paresthesia, anesthesia medics. She denies cardiac respiratory symptoms. She is on no anticoagulant or antiplatelet medicine. She states she was instructed by the nurse to come in because she hit her head and there was no improvement. 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 Nondisplaced fracture of middle phalanx of left lesser toe(s), initial encounter for closed fracture Nondisplaced fracture of proximal phalanx of left lesser toe(s), initial encounter for closed fracture Oppositional defiant disorder Right wrist sprain Severe headache Sprain of right hand Thyroid disease Undersocialized conduct disorder, aggressive type, moderate Home Medications norethindrone (contraceptive) 0.35 mg tablet 1 tab PO DAILY hormones/ control 01/21/19 [History Last Taken 04/22/19] meclizine 25 mg tablet 25 mg PO TID PRN vertigo #20 tabs 01/31/21 [Rx Last Taken Unknown] clotrimazole 1 % topical cream 1 applic topical BID #15 grams 06/15/21 [Rx Last Taken Unknown] lidocaine 5 % topical patch (Lidoderm) 1 patch topical DAILY #6 ea 09/02/21 [Rx Last Taken Unknown] naproxen 500 mg tablet (Naprosyn) 500 mg PO BID PRN pain #20 tabs 09/02/21 [Rx Last Taken Unknown] bacitracin 500 unit/gram topical ointment 1 applic topical BID 11/22/21 [History Last Taken Unknown] ondansetron 4 mg disintegrating tablet 4 mg PO Q8H PRN PRN Nausea #10 tabs 11/24/21 [Rx Last Taken Unknown] cetirizine 10 mg tablet 10 mg PO 01/01/22 [History Last Taken Unknown] triamcinolone acetonide 0.1 % topical cream 1 applic topical 01/01/22 [History Last Taken Unknown] ondansetron 4 mg disintegrating tablet 4 mg PO Q8H PRN nausea and vomiting #10 tabs 03/31/22 [Rx Last Taken Unknown] levothyroxine 88 mcg tablet 88 mcg PO DAILY 05/04/22 [History Last Taken Unknown] Allergy/AdvReac Type Severity Reaction Status Date / Time amoxicillin [From Augmentin] Allergy Other Verified 05/07/22 21:08 amoxicillin trihydrate Allergy Other Verified 05/07/22 21:08 [From Augmentin] azithromycin Allergy Other Verified 05/07/22 21:08 clavulanic acid Allergy Other Verified 05/07/22 21:08 [From Augmentin] erythromycin base Allergy Unknown Verified 05/07/22 21:08 [From E-Mycin] potassium clavulanate Allergy Other Verified 05/07/22 21:08 [From Augmentin] ibuprofen AdvReac Nausea Verified 05/07/22 21:08 Surgical History History of ear surgery History of eye surgery Social History household members: other details: Lives with her grandmother Smoking Status: Never smoker alcohol intake: never substance use type: does not use ROS ROS ED Constitutional Constitutional ED: Denies chills, fever(s) or subjective Eyes Eyes: Denies blurry vision or change in vision ENT ENT ED: Reports other Details: Denies tinnitus ; Denies ear pain, rhinorrhea or sore throat Cardiovascular Cardiovascular: Denies chest pain Respiratory/Chest Respiratory/Chest: Denies dyspnea Gastrointestinal Gastrointestinal: Reports nausea; Denies abdominal pain or vomiting Neurologic Neurologic: Denies headache(s), paresthesias or weakness Hematologic/Lymphatic Hematologic/Lymphatic: Denies easy bleeding, easy bruising or lymphadenopathy EXAM Physical Exam Const Vital Signs: 05/07/22 21:08 Temperature 96.8 F L Temperature Source Temporal Pulse Rate 107 H Respiratory Rate 18 Blood Pressure 150/99 H Blood Pressure Mean 116 Pulse Ox 95 Oxygen Delivery Method Room Air Positive well nourished and well developed General Appearance ED: well developed and NAD HEENT Reports TM's clear HEENT Narrative: There is tenderness over the left orthodox area. There is no obvious soft tissue swelling or contusion noted. atraumatic and tenderness Nose: Negative for septum abnormal Tympanic Membrane ED: Yes TM's clear Eyes PERRL and EOMs intact bilaterally General Eye ED: Yes other Other Details: There is no subconjunctival hemorrhage. There is no nystagmus. There is no evidence of facial trauma. Neck full ROM Neck Narrative: No pain no patient midline posterior neck. Full active range of motion without hesitation or discomfort. Resp normal respiratory effort and clear to auscultation bilaterally Cardio regular rhythm, S1 normal heart sound, S2 normal heart sound and no murmurs GI normal to inspection, nondistended, normoactive bowel sounds, non-tender and non-distended Palpation: soft Back/Spine normal to inspection and no thoracic nor lumbar tenderness Extremity normal to inspection and full ROM General Extremety ED: Negative for deformity, edema or tenderness General Extremity: Negative for deformity or edema Neuro oriented x3, CN's II-XII intact bilaterally, moves all extremities, no focal motor deficits, no sensory deficits noted and gait normal Austin Coma Scale: document GCS findings Spontaneous Obeys Commands Oriented 15 Sensorium / Orientation: alert Plantar Reflex: Downgoing: bilateral (There is no clonus.) Psych mental status grossly normal and thought process normal Skin no rashes or lesions noted, skin turgor normal and no jaundice MDM MDM MDM Narrative Medical decision making narrative: With history of blunt trauma tenderness patient has a scalp contusion. Imaging is not required. She was discharged to home. Discharge Plan Triage Chief Complaint: Head Injury ED Provider: Jerson Gustafson Dx/Rx/DC Orders Clinical Impression: Contusion of head Instructions: ED Soft Tissue Contusion Prescriptions: No Action triamcinolone acetonide 0.1 % cream 1 applic topical cetirizine 10 mg tablet 10 mg PO norethindrone (contraceptive) 0.35 MG tablet 1 tab PO DAILY meclizine 25 mg tablet 25 mg PO TID PRN (Reason: vertigo) Qty: 20 0RF clotrimazole 1 % cream 1 applic topical BID Qty: 15 0RF naproxen [Naprosyn] 500 mg tablet 500 mg PO BID PRN (Reason: pain) Qty: 20 0RF lidocaine [Lidoderm] 5 % adhesive patch,medicated 1 patch topical DAILY Qty: 6 0RF Rx Instructions: leave on most painful area for up to 12 hrs bacitracin 500 unit/gram ointment 1 applic TOPICAL BID ondansetron [ondansetron] 4 MG tablet 4 mg PO Q8H PRN PRN (Reason: Nausea) Qty: 10 0RF ondansetron 4 mg tablet,disintegrating 4 mg PO Q8H PRN (Reason: nausea and vomiting) Qty: 10 0RF levothyroxine 88 mcg tablet 88 mcg PO DAILY Label Comments: take 1 tablet by mouth once daily before breakfast Primary Care Provider: Gregor Trujillo Referrals: Gregor Trujillo MD [Primary Care Provider] - As Needed Activity Restrictions/Additional Instructions: 1. Take either Tylenol or Advil for your pain 2. Apply ice 6-8 times a day. 3. You may be sore for several more days Disposition Disposition: Home, Self Care
[2022-05-07 21:23] VITALS: PULSE 74; RESP 16
== END 2022-05-07 21:41 | disposition home or self-care (01) ==
LOC: ED 21:26
PROVIDERS: Emergency Provider Emergency Medicine; PCP Family Medicine; Visit Provider Emergency Medicine
DX: S00.03XA Contusion of scalp, initial encounter (principal); I10 Essential (primary) hypertension; W01.10XA Fall on same level from slipping, tripping and stumbling with subsequent striking against unspecified object, initial encounter; Z79.1 Long term (current) use of non-steroidal anti-inflammatories (NSAID); Z79.890 Hormone replacement therapy; Z79.899 Other long term (current) drug therapy
CPT/HCPCS: 99283

== ENCOUNTER → 2022-06-08 | Outpatient (CLI) | payer MEDICAID, SELFPAY ==
--- NOTE | 2022-06-08 16:57 | RAD_ITS ---
EXAM: XR RIGHT FINGERS, 2 OR MORE VIEWS CLINICAL INDICATION: injury TECHNIQUE: Frontal, lateral and oblique views of the fingers of the right hand. This report was created using [facility] report generation technology. COMPARISON: None. FINDINGS: BONES/JOINTS: Unremarkable. No acute fracture. No subluxation. Normal alignment. Preservation of the joint space. No sclerotic or destructive changes observed. SOFT TISSUES: Unremarkable. No soft tissue swelling or gas. No radiopaque foreign body. RAD/Finger(s) Min 2 Views IMPRESSION: Negative x-rays of the visualized right fingers. Electronically Signed: Júnior Diaz MD at 17:49 EDT ,
--- NOTE | 2022-06-08 16:57 | RAD_ITS ---
EXAM: XR RIGHT FOOT COMPLETE, 3 OR MORE VIEWS CLINICAL INDICATION: injury pain TECHNIQUE: Frontal, lateral and oblique views of the right foot. This report was created using [employer] report generation technology. COMPARISON: None. FINDINGS: BONES/JOINTS: There is an enthesophyte involving the posterior superior calcaneus at the site of insertion of the Achilles tendon. No acute fracture. No subluxation. Normal alignment. Preservation of the joint space. No sclerotic or destructive changes observed. SOFT TISSUES: Unremarkable. No soft tissue swelling or gas. No radiopaque foreign body. RAD/Foot min 3 Views IMPRESSION: There is an enthesophyte involving the posterior superior calcaneus at the site of insertion of the Achilles tendon. Electronically Signed: Júnior Diaz MD at 17:50 EDT ,
== END | disposition home or self-care (01) ==
LOC: MTRAD 16:57
PROVIDERS: PCP Family Medicine; Referring Provider Physician Assistant; Visit Provider Physician Assistant
DX: S69.91XA Unspecified injury of right wrist, hand and finger(s), initial encounter (principal); S99.921A Unspecified injury of right foot, initial encounter
CPT/HCPCS: 73140; 73630

== ENCOUNTER 2022-06-15 15:04 | Emergency (ER) | payer MEDICAID, SELFPAY ==
[2022-06-15 15:04] VITALS: BP 133/94; PULSE 105; RESP 16; TEMP 35.8; O2SAT 97; BMI 37.5
--- NOTE | 2022-06-15 15:08 | RAD_ITS ---
INDICATION: INJURY EXAMINATION/TECHNIQUE: X-RAY - RIGHT XR Shoulder Min 2 Views 5 VIEWS COMPARISON: 06/12/2022. FINDINGS: SOFT TISSUES: No soft tissue swelling or gas. No radiopaque foreign body. BONES/JOINTS: No acute fracture or subluxation.. Normal alignment. Preservation of the joint space.. No sclerotic or destructive changes observed. RAD/Shoulder min 2 Views IMPRESSION: No evidence of acute osseous abnormality is seen. Electronically Signed: Etienne Shaw MD at 15:29 EDT ,
--- NOTE | 2022-06-15 15:10 | RAD_ITS ---
INDICATION: INJURY EXAMINATION/TECHNIQUE: X-RAY - RIGHT XR Hand Min 3 Views 3 VIEWS COMPARISON: None. FINDINGS: SOFT TISSUES: No soft tissue swelling or gas. No radiopaque foreign body. BONES/JOINTS: No acute fracture or subluxation.. Normal alignment. Preservation of the joint space.. No sclerotic or destructive changes observed. RAD/Hand Min 3 Views IMPRESSION: No evidence of acute osseous abnormality is seen. Electronically Signed: Etienne Shaw MD at 15:27 EDT ,
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
[2022-06-15 16:34] VITALS: PULSE 73; RESP 18; O2SAT 100
== END 2022-06-15 16:34 | disposition home or self-care (01) ==
PROVIDERS: Emergency Provider Emergency Medicine; PCP Family Medicine; Visit Provider Emergency Medicine
DX: S49.91XA Unspecified injury of right shoulder and upper arm, initial encounter (principal); I10 Essential (primary) hypertension; Y04.0XXA Assault by unarmed brawl or fight, initial encounter
CPT/HCPCS: 73030; 73130; 99283

== ENCOUNTER → 2022-07-14 | Outpatient (CLI) | payer MEDICAID, SELFPAY ==
[2022-07-14 23:41] LABS: Mucous, Urine 0 SEEN /hpf (<or=2+)
[2022-07-15 00:40] LABS: Color, Urine Yellow (Yellow); Glucose, Dipstick 50 mg/dl (Normal); Ketone-Dipstick 5 mg/dl (Negative); Leukocyte Esterase-Dipstick 25 /ul (Negative); Nitrite-Dipstick Negative (Negative); Occult Blood-Urine Negative /ul (Negative); Protein-Dipstick Negative (Negative); Specific Gravity, Urine 1.015 (1.002-1.030); Urine Bilirubin Dipstick Negative (Negative); Urine Clarity Clear (Clear); Urine Urobilinogen Normal (Normal); Urine pH 6.5 (5.0 - 8.0)
[2022-07-15 00:52] LABS: Bacteria 1+ /hpf (None Seen); Red Blood Cells-Urine 0-5 SEEN /hpf (0-5); Squamous Epithelial Cells - UA 0-5 SEEN /hpf (5-10); White Blood Cells 0-5 SEEN /hpf (0-5)
== END | disposition home or self-care (01) ==
PROVIDERS: PCP Family Medicine; Referring Provider Physician Assistant; Visit Provider Physician Assistant
DX: R30.0 Dysuria (principal)
CPT/HCPCS: 81001; 87077; 87086; 87088; 87186

== ENCOUNTER 2022-07-18 01:34 | Emergency (ER) | payer MEDICAID, SELFPAY ==
[2022-07-18 01:35] VITALS: BP 160/109; PULSE 111; RESP 16; TEMP 36.4; O2SAT 93; BMI 42.2
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
[2022-07-18 03:57] VITALS: PULSE 97; RESP 15; O2SAT 96
== END 2022-07-18 04:05 | disposition home or self-care (01) ==
PROVIDERS: Emergency Provider Emergency Medicine; PCP Family Medicine; Visit Provider Emergency Medicine
DX: S80.01XA Contusion of right knee, initial encounter (principal); S90.01XA Contusion of right ankle, initial encounter; Y04.8XXA Assault by other bodily force, initial encounter; I10 Essential (primary) hypertension; F90.9 Attention-deficit hyperactivity disorder, unspecified type; Z79.1 Long term (current) use of non-steroidal anti-inflammatories (NSAID); Z79.890 Hormone replacement therapy; Z79.52 Long term (current) use of systemic steroids; Z79.899 Other long term (current) drug therapy
CPT/HCPCS: 73564; 73610; 99282

== ENCOUNTER 2022-07-26 02:11 | Emergency (ER) | payer MEDICAID, SELFPAY ==
[2022-07-26 02:12] VITALS: BP 138/90; PULSE 75; RESP 18; TEMP 36.6; O2SAT 98; BMI 42.2
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
[2022-07-26] MEDS: Acetaminophen 500 MG Tablet 1000 MG PO (02:53)
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
[2022-07-26 03:58] VITALS: PULSE 78; RESP 18; O2SAT 98
== END 2022-07-26 03:58 | disposition home or self-care (01) ==
PROVIDERS: Emergency Provider Emergency Medicine; PCP Family Medicine; Visit Provider Emergency Medicine
DX: S80.11XA Contusion of right lower leg, initial encounter (principal); W22.03XA Walked into furniture, initial encounter; D16.9 Benign neoplasm of bone and articular cartilage, unspecified; S82.409D Unspecified fracture of shaft of unspecified fibula, subsequent encounter for closed fracture with routine healing; I10 Essential (primary) hypertension; Z79.890 Hormone replacement therapy; Z79.899 Other long term (current) drug therapy
CPT/HCPCS: 73590; 99282

== ENCOUNTER → 2022-08-04 | Outpatient (CLI) | payer MEDICAID, SELFPAY ==
--- NOTE | 2022-08-04 11:13 | MRI_ITS ---
EXAM: MR RIGHT LOWER EXTREMITY WITHOUT INTRAVENOUS CONTRAST, KNEE CLINICAL INDICATION: Fracture TECHNIQUE: Multiplanar and multisequence MR images of the right knee without intravenous contrast. This report was created using [employer] report generation technology. COMPARISON: July 18, 2022 right knee radiography. FINDINGS: BONES/JOINTS: Osteochondral impaction type fracture at the anterior weightbearing portion of the medial femoral condyle with adjacent bone marrow edema. Menisci are intact. No synovial hypertrophy. EXTENSOR MECHANISM: Unremarkable. MEDIAL MENISCUS: See above. LATERAL MENISCUS: See above. MEDIAL CAPSULE/SUPPORTING STRUCTURES: Unremarkable. Intact. LATERAL CAPSULE/SUPPORTING STRUCTURES: Unremarkable. Lateral collateral ligamentous complex, inclusive of the popliteal tendon, are intact. ANTERIOR CRUCIATE LIGAMENT: Unremarkable. Intact. POSTERIOR CRUCIATE LIGAMENT: Unremarkable. Intact. MUSCLES: Strain injury involving the deep fibers of the lateral gastrocnemius as well as the plantaris muscle. CARTILAGE: No other focal chondral defects. FLUID: Unremarkable. No joint effusion. OTHER SOFT TISSUES: Unremarkable. No popliteal cyst. MRI/Lower Ext Joint Only (Routine) IMPRESSION: 1. Osteochondral impaction type fracture at the anterior weightbearing portion of the medial femoral condyle with adjacent bone marrow edema. 2. Strain injury involving the deep fibers of the lateral gastrocnemius as well as the plantaris muscle. Electronically Signed: Douglas Jiménez MD at 2:55 EST ,
== END | disposition home or self-care (01) ==
LOC: MRI 11:13
PROVIDERS: PCP Family Medicine
DX: S82.839A Other fracture of upper and lower end of unspecified fibula, initial encounter for closed fracture (principal); M23.91 Unspecified internal derangement of right knee; X58.XXXA Exposure to other specified factors, initial encounter
CPT/HCPCS: 73721

== ENCOUNTER → 2022-08-24 | Outpatient (CLI) | payer MEDICAID, SELFPAY ==
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
== END | disposition home or self-care (01) ==
LOC: MTRAD 16:55
PROVIDERS: PCP Family Medicine; Referring Provider Physician Assistant; Visit Provider Physician Assistant
DX: S69.92XA Unspecified injury of left wrist, hand and finger(s), initial encounter (principal); X58.XXXA Exposure to other specified factors, initial encounter
CPT/HCPCS: 73140

== ENCOUNTER 2022-10-06 19:46 | Emergency (ER) | payer MEDICAID, SELFPAY ==
[2022-10-06 19:47] VITALS: BP 140/91; PULSE 77; RESP 15; TEMP 36.5; O2SAT 98; BMI 39.1
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
--- NOTE | 2022-10-06 20:40 | RAD_ITS ---
STUDY: X-RAY - RIGHT SHOULDER REASON FOR EXAM: Female, 21 years old. pain TECHNIQUE: 4 view(s) of the shoulder. COMPARISON: None. FINDINGS: Normal glenohumeral articulation. Normal acromioclavicular joint. Normal acromion. Normal humeral head and visualized proximal humerus. The soft tissue structures are unremarkable. There is no demonstrated fracture. Normal visualized pulmonary apex. RAD/Shoulder min 2 Views IMPRESSION: Normal x-ray examination of the shoulder. Electronically Signed: Reji Theodore MD at 21:32 EST ,
--- NOTE | 2022-10-06 22:17 | ED.VIS.LOWEX ---
HPI History of Present Illness Chief Complaint: Fall Narrative Narrative: 21-year-old female presenting with right leg pain, right shoulder pain, rib pain. Apparently she tried to get out of bed and her leg was asleep when she fell on her right side. She is able to ambulate. She has a history of a fibular head fracture. She follows with Dr. Kamara. Apparently she was told that she needs to weight-bear more but she has been laying around a lot. Patient states that she was trying to get a second opinion and [place] because they are not doing anything for her here in [place]. Patient also complains of right shoulder pain and rib pains from falling. She does not have any shortness of breath. She does not have a limitation of range of motion of her right shoulder that she is complaining of pain in. 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 HTN (hypertension) Injury of left index finger Injury of left toe Intellectual disability Knee pain 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 Nondisplaced fracture of middle phalanx of left lesser toe(s), initial encounter for closed fracture Nondisplaced fracture of proximal phalanx of left lesser toe(s), initial encounter for closed fracture Oppositional defiant disorder Osteochondral fracture Right wrist sprain Severe headache Sprain of left index finger Sprain of right hand Sprain of right index finger Thyroid disease Undersocialized conduct disorder, aggressive type, moderate Home Medications norethindrone (contraceptive) 0.35 mg tablet 1 tab PO DAILY hormones/ control 01/21/19 [History Last Taken 04/22/19] meclizine 25 mg tablet 25 mg PO TID PRN vertigo #20 tabs 01/31/21 [Rx Last Taken Unknown] clotrimazole 1 % topical cream 1 applic topical BID #15 grams 06/15/21 [Rx Last Taken Unknown] lidocaine 5 % topical patch (Lidoderm) 1 patch topical DAILY #6 ea 09/02/21 [Rx Last Taken Unknown] bacitracin 500 unit/gram topical ointment 1 applic topical BID 11/22/21 [History Last Taken Unknown] ondansetron 4 mg disintegrating tablet 4 mg PO Q8H PRN PRN Nausea #10 tabs 11/24/21 [Rx Last Taken Unknown] cetirizine 10 mg tablet 10 mg PO 01/01/22 [History Last Taken Unknown] triamcinolone acetonide 0.1 % topical cream 1 applic topical 01/01/22 [History Last Taken Unknown] ondansetron 4 mg disintegrating tablet 4 mg PO Q8H PRN nausea and vomiting #10 tabs 03/31/22 [Rx Last Taken Unknown] levothyroxine 88 mcg tablet 88 mcg PO DAILY 05/04/22 [History Last Taken Unknown] lidocaine 5 % topical patch (Lidoderm) 1 patch topical DAILY PRN pain #15 ea 06/15/22 [Rx Last Taken Unknown] naproxen 500 mg tablet 500 mg PO BID #30 tabs 06/15/22 [Rx Last Taken Unknown] prednisone 10 mg tablet 10 mg PO DAILY #30 tabs 07/01/22 [Rx Last Taken Unknown] lidocaine 4 % topical patch 1 patch topical DAILY PRN pain #15 ea 07/03/22 [Rx Last Taken Unknown] dexamethasone 6 mg tablet 6 mg PO DAILY #5 tabs 07/09/22 [Rx Last Taken Unknown] doxycycline monohydrate 100 mg capsule 100 mg PO BID #20 caps 07/09/22 [Rx Last Taken Unknown] naproxen 500 mg tablet (Naprosyn) 500 mg PO BID PRN pain #20 tabs 07/21/22 [Rx Last Taken Unknown] Allergy/AdvReac Type Severity Reaction Status Date / Time amoxicillin [From Augmentin] Allergy Other Verified 10/06/22 19:51 amoxicillin trihydrate Allergy Other Verified 10/06/22 19:51 [From Augmentin] azithromycin Allergy Other Verified 10/06/22 19:51 clavulanic acid Allergy Other Verified 10/06/22 19:51 [From Augmentin] erythromycin base Allergy Unknown Verified 10/06/22 19:51 [From E-Mycin] potassium clavulanate Allergy Other Verified 10/06/22 19:51 [From Augmentin] ibuprofen AdvReac Nausea Verified 10/06/22 19:51 Surgical History History of ear surgery History of eye surgery Social History household members: other details: Lives with her grandmother Smoking Status: Never smoker alcohol intake: never substance use type: does not use ROS ROS ED Constitutional Constitutional ED: Denies chills or fever(s) Eyes Eyes: Denies change in vision or diplopia ENT ENT ED: Denies rhinorrhea or sore throat Cardiovascular Cardiovascular: Denies chest pain or palpitations Respiratory/Chest Respiratory/Chest: Denies cough or dyspnea Gastrointestinal Gastrointestinal: Denies abdominal pain or constipation Genitourinary Genitourinary ED: Denies dysuria or hematuria Musculoskeletal Musculoskeletal: Reports other Details: Right shoulder pain, right knee pain Integumentary Denies abscess or Abrasions Neurologic Neurologic: Denies headache(s) or paresthesias Psychiatric Psychiatric: Denies anxiety or depression Endocrine Endocrinology: Denies polydipsia or polyphagia EXAM Physical Exam Const Vital Signs: 10/06/22 19:47 Temperature 97.7 F L Temperature Source Temporal Pulse Rate 77 Respiratory Rate 15 Blood Pressure 140/91 H Blood Pressure Mean 107 Pulse Ox 98 Oxygen Delivery Method Room Air Positive well nourished General Appearance ED: NAD HEENT normocephalic Neck full ROM Chest Wall inspection of chest normal and palpation of chest normal Resp normal respiratory effort Auscultation: Negative for rales, rhonchi or wheezes Cardio regular rate and regular rhythm GI non-tender Extremity Extremity Narrative: Tenderness to palpation of the right fibular head. No obvious deformity. No ligament laxity. Full range of motion in flexion extension. Patient is weightbearing. Right shoulder subjective pain with range of motion however her range of motion is full. No obvious deformity. No bruising or swelling. Patient using her right arm to support herself while standing Neuro oriented x3 Sensorium / Orientation: alert Psych mental status grossly normal Skin no wounds MDM MDM MDM Narrative Medical decision making narrative: Presenting after a fall and states her leg was asleep and this came out from under her. She states that the right leg. She has history of osteochondral fracture in the right fibular head which is present again on x-ray of the right knee on my interpretation. There does not appear to be any acute changes. this does not appear to be well here. She is having trouble with this. She is been followed with Dr. Kamara. But looking through the notes it looks like they are telling her to weight-bear more often but they are having trouble getting her out of bed. Her mother reports that she does not get out of bed very often and she is very lazy. They are currently trying to get a second opinion in [place] about second half until next week. Chest x-ray was obtained because she was stating she had bilateral rib pain although she does not have any obvious pain on examination. Her lungs are clear to auscultation. Chest x-ray on my interpretation shows no acute cardiopulmonary process. There are also no obvious rib fractures. Right shoulder x-ray was performed due to her pain in the right shoulder although she has no limitation in the right shoulder range of motion. She is actually using her right hand and arm to lean on the side of the bed while she standing and weightbearing on her right leg. Impression: 1. Fall 2. Right shoulder contusion 3. History of osteochondral fracture right fibula 4. Rib contusions Lab Data Attestation: I reviewed the patient's lab results. Radiography Diagnostic Testing: Clinical Impression(s) from Imaging Studies Chest X-Ray 10/06/22 20:40 IMPRESSION: Normal x-ray examination of the chest. Electronically Signed: Reji Theodore MD at 21:12 EST , Knee X-Ray 10/06/22 20:40 IMPRESSION: Stable nonunited fracture of the fibular head. Electronically Signed: Reji Theodore MD at 21:18 EST , Shoulder X-Ray 10/06/22 20:40 IMPRESSION: Normal x-ray examination of the shoulder. Electronically Signed: Reji Theodore MD at 21:32 EST , Discharge Plan Triage Chief Complaint: Fall ED Provider: Timothy Grigsby Dx/Rx/DC Orders Instructions: ED Fracture, Lower Extremity Prescriptions: No Action triamcinolone acetonide 0.1 % cream 1 applic topical cetirizine 10 mg tablet 10 mg PO lidocaine 4 % adhesive patch,medicated 1 patch topical DAILY PRN (Reason: pain) Qty: 15 0RF prednisone 10 mg tablet 10 mg PO DAILY Qty: 30 0RF Rx Instructions: 4 tablets daily for 3 days, then 3 tablets daily for 3 days, then 2 tablets daily for 3 days, then 1 tablet daily for 3 days doxycycline monohydrate 100 mg capsule 100 mg PO BID Qty: 20 0RF dexamethasone 6 mg tablet 6 mg PO DAILY Qty: 5 0RF naproxen [Naprosyn] 500 mg tablet 500 mg PO BID PRN (Reason: pain) Qty: 20 0RF Rx Instructions: Do not take in conjunction with other NSAIDs. Tylenol is okay. norethindrone (contraceptive) 0.35 MG tablet 1 tab PO DAILY meclizine 25 mg tablet 25 mg PO TID PRN (Reason: vertigo) Qty: 20 0RF clotrimazole 1 % cream 1 applic topical BID Qty: 15 0RF lidocaine [Lidoderm] 5 % adhesive patch,medicated 1 patch topical DAILY Qty: 6 0RF Rx Instructions: leave on most painful area for up to 12 hrs bacitracin 500 unit/gram ointment 1 applic TOPICAL BID ondansetron [ondansetron] 4 MG tablet 4 mg PO Q8H PRN PRN (Reason: Nausea) Qty: 10 0RF ondansetron 4 mg tablet,disintegrating 4 mg PO Q8H PRN (Reason: nausea and vomiting) Qty: 10 0RF levothyroxine 88 mcg tablet 88 mcg PO DAILY Label Comments: take 1 tablet by mouth once daily before breakfast naproxen 500 mg tablet 500 mg PO BID Qty: 30 0RF lidocaine [Lidoderm] 5 % adhesive patch,medicated 1 patch topical DAILY PRN (Reason: pain) Qty: 15 0RF Rx Instructions: leave on most painful area for up to 12 hrs Primary Care Provider: Gregor Trujillo Referrals: Gregor Trujillo MD [Primary Care Provider] - Brent Kamara MD [Med Staff - Active Staff] - 3-5 Days Disposition Disposition: Home, Self Care
== END 2022-10-06 22:40 | disposition home or self-care (01) ==
PROVIDERS: Emergency Provider Student in an Organized Health Care Education/Training Program; PCP Family Medicine; Visit Provider Student in an Organized Health Care Education/Training Program
DX: S40.011A Contusion of right shoulder, initial encounter (principal); S20.219A Contusion of unspecified front wall of thorax, initial encounter; I10 Essential (primary) hypertension; M25.561 Pain in right knee; W19.XXXA Unspecified fall, initial encounter
CPT/HCPCS: 71045; 73030; 73564; 99282

== ENCOUNTER 2022-10-19 02:31 | Emergency (ER) | payer MEDICAID, SELFPAY ==
[2022-10-19 02:32] VITALS: BP 118/96; PULSE 113; RESP 18; TEMP 35.8; O2SAT 95; BMI 41.8
--- NOTE | 2022-10-19 02:55 | ED.VIS.LOWEX ---
HPI History of Present Illness Chief Complaint: Lower Extremity Injury Informant: patient Narrative Narrative: Presents for evaluation of pain to the right great toe prior to arrival. She states there bumped the lateral aspect of the toe. She is concerned for infection. She is nondiabetic. She has similar on her other foot nontender. 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 HTN (hypertension) Injury of left index finger Injury of left toe Intellectual disability Knee pain 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 Nondisplaced fracture of middle phalanx of left lesser toe(s), initial encounter for closed fracture Nondisplaced fracture of proximal phalanx of left lesser toe(s), initial encounter for closed fracture Oppositional defiant disorder Osteochondral fracture Right wrist sprain Severe headache Sprain of left index finger Sprain of right hand Sprain of right index finger Thyroid disease Undersocialized conduct disorder, aggressive type, moderate Home Medications norethindrone (contraceptive) 0.35 mg tablet 1 tab PO DAILY hormones/ control 01/21/19 [History Last Taken 04/22/19] meclizine 25 mg tablet 25 mg PO TID PRN vertigo #20 tabs 01/31/21 [Rx Last Taken Unknown] cetirizine 10 mg tablet 10 mg PO 01/01/22 [History Last Taken Unknown] levothyroxine 88 mcg tablet 88 mcg PO DAILY 05/04/22 [History Last Taken Unknown] sertraline 100 mg tablet 100 mg PO DAILY 10/19/22 [History Last Taken Unknown] Allergy/AdvReac Type Severity Reaction Status Date / Time amoxicillin [From Augmentin] Allergy Other Verified 10/13/22 10:02 amoxicillin trihydrate Allergy Other Verified 10/13/22 10:02 [From Augmentin] azithromycin Allergy Other Verified 10/13/22 10:02 clavulanic acid Allergy Other Verified 10/13/22 10:02 [From Augmentin] erythromycin base Allergy Unknown Verified 10/13/22 10:02 [From E-Mycin] potassium clavulanate Allergy Other Verified 10/13/22 10:02 [From Augmentin] ibuprofen AdvReac Nausea Verified 10/13/22 10:02 Surgical History History of ear surgery History of eye surgery Social History household members: other details: Lives with her grandmother Smoking Status: Never smoker alcohol intake: never substance use type: does not use ROS ROS ED Constitutional Constitutional ED: Denies chills, fever(s) or sweats Eyes Eyes: Denies change in vision ENT ENT ED: Denies dysphagia or sore throat Cardiovascular Cardiovascular: Denies chest pain, leg edema, palpitations or racing heartbeat Respiratory/Chest Respiratory/Chest: Denies cough, dyspnea or dyspnea on exertion Gastrointestinal Gastrointestinal: Denies abdominal pain, diarrhea, nausea or vomiting Genitourinary Genitourinary ED: Denies dysuria, hematuria or urinary frequency Musculoskeletal Musculoskeletal: Reports extremity pain and other Details: Right toe pain ; Denies back pain or neck pain Integumentary Denies rash or wounds Neurologic Neurologic: Denies headache(s), paresthesias or weakness EXAM Physical Exam Const Vital Signs: 10/19/22 02:32 Temperature 96.4 F L Temperature Source Temporal Pulse Rate 113 H Respiratory Rate 18 Blood Pressure 118/96 H Blood Pressure Mean 103 Pulse Ox 95 Oxygen Delivery Method Room Air Positive well nourished and well developed General Appearance ED: well developed and NAD HEENT Reports moist mucous membranes normocephalic and atraumatic Eyes PERRL, EOMs intact bilaterally and conjunctivae normal General Eye ED: Yes normal appearance of both eyes Neck no lymphadenopathy and supple General: Negative for tenderness Chest Wall Chest: Negative for tenderness Resp normal respiratory effort and normal air movement Effort and Inspection: symmetric chest movement; Negative for respiratory distress Cardio regular rate, regular rhythm and no murmurs Peripheral Pulses: pulses 2+ throughout GI normal to inspection, nondistended, normoactive bowel sounds and non-tender Palpation: Negative for guarding or rebound tenderness present Back/Spine no CVA tenderness and no thoracic nor lumbar tenderness Extremity Extremity Narrative: Bilateral feet, calluses on the medial aspect of the great toe bilaterally right side mild tender palpation no erythema drainage fluctuance. No pain at the MTP. Differential likely callus, no clinical concerns for gout. No signs of ecchymosis or contusion. No injuries for concerns of fracture. No patient seen multiple times in ED for different types of injuries. There is no reported injury today I do not feel images are necessary. She is given follow-up with podiatry as outpatient for treatment plans. All questions were answered. General Extremety ED: Negative for edema or tenderness General Extremity: Negative for edema Neuro oriented x3 and no sensory deficits noted Sensorium / Orientation: awake and alert Skin no rashes or lesions noted and no wounds Discharge Plan Triage Chief Complaint: Lower Extremity Injury ED Provider: Christian Cortez Dx/Rx/DC Orders Clinical Impression: Callus of foot Instructions: Treating Corns and Calluses Prescriptions: No Action cetirizine 10 mg tablet 10 mg PO norethindrone (contraceptive) 0.35 MG tablet 1 tab PO DAILY meclizine 25 mg tablet 25 mg PO TID PRN (Reason: vertigo) Qty: 20 0RF levothyroxine 88 mcg tablet 88 mcg PO DAILY Label Comments: take 1 tablet by mouth once daily before breakfast sertraline 100 mg tablet 100 mg PO DAILY Primary Care Provider: Gregor Trujillo Referrals: Victor Hugo Gorman DPM [Med Staff - Active Staff] - 1 Week Gregor Trujillo MD [Primary Care Provider] - Disposition Disposition: Home, Self Care
== END 2022-10-19 03:00 | disposition home or self-care (01) ==
LOC: ED 02:57
PROVIDERS: Emergency Provider Emergency Medicine; PCP Family Medicine; Visit Provider Emergency Medicine
DX: L84 Corns and callosities (principal); I10 Essential (primary) hypertension
CPT/HCPCS: 99282

== ENCOUNTER 2022-10-25 22:38 | Emergency (ER) | payer MEDICAID, SELFPAY ==
[2022-10-25 22:39] VITALS: BP 148/101; PULSE 95; RESP 15; TEMP 36.4; O2SAT 97; BMI 42.2
--- NOTE | 2022-10-25 22:56 | EX.ED.DYSGE1 ---
HPI History of Present Illness Chief Complaint: Lower Extremity Injury Informant: patient Narrative Narrative: Patient presents with 2 complaints. First complaint is that she noted 2 red dots on the back of her left lower leg. She does not have any sensation specifically associated with them. She does not know how long they have been there. She denies fevers chills. There is no swelling. They are not tender. She just saw them and was concerned about them. She just saw them tonight. Her second complaint is that she has continual pain at the right knee and proximal fibula area. She has a known fracture with poor or nonunion in this area. She states that she has this pain all the time and is not new or different today. She denies any recent falls or injury. She states this is just something she deals with every day so she mentioned it today. She is not having swelling. There is no dyspnea. 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 HTN (hypertension) Injury of left index finger Injury of left toe Intellectual disability Knee pain 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 Nondisplaced fracture of middle phalanx of left lesser toe(s), initial encounter for closed fracture Nondisplaced fracture of proximal phalanx of left lesser toe(s), initial encounter for closed fracture Oppositional defiant disorder Osteochondral fracture Right wrist sprain Severe headache Sprain of left index finger Sprain of right hand Sprain of right index finger Thyroid disease Undersocialized conduct disorder, aggressive type, moderate Home Medications norethindrone (contraceptive) 0.35 mg tablet 1 tab PO DAILY hormones/ control 01/21/19 [History Last Taken 04/22/19] meclizine 25 mg tablet 25 mg PO TID PRN vertigo #20 tabs 01/31/21 [Rx Last Taken Unknown] cetirizine 10 mg tablet 10 mg PO 01/01/22 [History Last Taken Unknown] levothyroxine 88 mcg tablet 88 mcg PO DAILY 05/04/22 [History Last Taken Unknown] sertraline 100 mg tablet 100 mg PO DAILY 10/19/22 [History Last Taken Unknown] Allergy/AdvReac Type Severity Reaction Status Date / Time amoxicillin [From Augmentin] Allergy Other Verified 10/13/22 10:02 amoxicillin trihydrate Allergy Other Verified 10/13/22 10:02 [From Augmentin] azithromycin Allergy Other Verified 10/13/22 10:02 clavulanic acid Allergy Other Verified 10/13/22 10:02 [From Augmentin] erythromycin base Allergy Unknown Verified 10/13/22 10:02 [From E-Mycin] potassium clavulanate Allergy Other Verified 10/13/22 10:02 [From Augmentin] ibuprofen AdvReac Nausea Verified 10/13/22 10:02 Surgical History History of ear surgery History of eye surgery Social History household members: other details: Lives with her grandmother Smoking Status: Never smoker alcohol intake: never substance use type: does not use ROS ROS ED Constitutional Constitutional ED: Denies chills or fever(s) ENT ENT ED: Denies sore throat Cardiovascular Cardiovascular: Denies chest pain or palpitations Respiratory/Chest Respiratory/Chest: Denies cough or dyspnea Gastrointestinal Gastrointestinal: Denies nausea or vomiting Musculoskeletal Musculoskeletal: Reports arthralgias; Denies neck pain Integumentary Reports rash Neurologic Neurologic: Denies paresthesias or weakness Allergic/Immunologic Allergic/Immunologic ED: Denies urticaria EXAM Physical Exam Narrative Exam Narrative: General: Patient awake alert no acute distress. She is looking at a book that she brought with her. She is sitting comfortably in bed. HEENT shows no sign of trauma. Mucous membranes are moist. Lungs are clear bilaterally no shortness of breath dyspnea or pain with deep breath. No wheezes or rhonchi. Heart is regular without murmur gallop or rub noted Abdomen is obese but otherwise benign Examination extremities reveal a lidocaine patch on the right proximal lateral aspect of her leg. There is really still no tenderness in that area. I do not see any erythema out from under the patch. No swelling distally. The exam is really normal. Her area of pain is consistent with her known injury and nonunion. The knee itself has no pain with range of motion or effusion. Examination of the left lower leg reveals 2 small red dots about 2 mm around on the lower leg posteriorly. These look to be associated with abraded hair follicles. There is no pustule. There is no cellulitis. There is no swelling. No tenderness. No warmth. These are very small and should resolve on their own. Const Vital Signs: 10/25/22 22:39 Temperature 97.5 F L Temperature Source Temporal Pulse Rate 95 Respiratory Rate 15 Blood Pressure 148/101 H Blood Pressure Mean 116 Pulse Ox 97 Oxygen Delivery Method Room Air MDM MDM MDM Narrative Medical decision making narrative: Patient presents with chronic discomfort and a area of nonunion. This can be followed up with orthopedics. She can use her Lidoderm patches and/or Tylenol. I do not think repeat imaging is needed. She is already had imaging of this area of this month. The areas on her left lower leg are very small at about 2 mm. These look to be small abrasions or irritation of follicles but no sign of infection. Just cleaning the area and watching it is appropriate. I would not add antibiotics at this time. I do not think she needs repeat x-rays or blood work for either 1 of these. I do not think a CBC is going to add to our treatment. 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
== END 2022-10-26 00:35 | disposition home or self-care (01) ==
PROVIDERS: Emergency Provider Emergency Medicine; PCP Family Medicine; Visit Provider Emergency Medicine
DX: S82.831K Other fracture of upper and lower end of right fibula, subsequent encounter for closed fracture with nonunion (principal); L73.9 Follicular disorder, unspecified; I10 Essential (primary) hypertension; Z79.899 Other long term (current) drug therapy; X58.XXXA Exposure to other specified factors, initial encounter
CPT/HCPCS: 99282

== ENCOUNTER 2022-11-05 16:32 | Emergency (ER) | payer MEDICAID, SELFPAY ==
[2022-11-05 16:33] VITALS: BP 159/112; PULSE 82; RESP 16; TEMP 36.6; O2SAT 97; BMI 31.3
--- NOTE | 2022-11-05 17:37 | ED.VIS.LOWEX ---
HPI History of Present Illness Chief Complaint: Lower Extremity Injury Informant: patient Occured/Mechanism Mechanism/Context: Yes fall Comment: Tripped and fell in house Onset/Context/Timing Onset: Yesterday Narrative Narrative: Patient had a fracture of her proximal fibula last month, she is seen orthopedics for it, she has not needed any specific braces or anything like that. She tripped last night and states that she think she reinjured that area because the pain is worse there, and in addition she thinks she might of sprained both ankles. She has been able to ambulate on both of them. The right one seems worse than the left. She states it does not hurt until she puts weight on it, so she does this to display where the pain is, and she points just distal to the medial malleolus of both ankles. 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 HTN (hypertension) Injury of left index finger Injury of left toe Intellectual disability Knee pain 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 Nondisplaced fracture of middle phalanx of left lesser toe(s), initial encounter for closed fracture Nondisplaced fracture of proximal phalanx of left lesser toe(s), initial encounter for closed fracture Oppositional defiant disorder Osteochondral fracture Right wrist sprain Severe headache Sprain of left index finger Sprain of right hand Sprain of right index finger Thyroid disease Undersocialized conduct disorder, aggressive type, moderate Home Medications norethindrone (contraceptive) 0.35 mg tablet 1 tab PO DAILY hormones/ control 01/21/19 [History Last Taken 04/22/19] meclizine 25 mg tablet 25 mg PO TID PRN vertigo #20 tabs 01/31/21 [Rx Last Taken Unknown] cetirizine 10 mg tablet 10 mg PO 01/01/22 [History Last Taken Unknown] levothyroxine 88 mcg tablet 88 mcg PO DAILY 05/04/22 [History Last Taken Unknown] sertraline 100 mg tablet 100 mg PO DAILY 10/19/22 [History Last Taken Unknown] Allergy/AdvReac Type Severity Reaction Status Date / Time amoxicillin [From Augmentin] Allergy Other Verified 10/13/22 10:02 amoxicillin trihydrate Allergy Other Verified 10/13/22 10:02 [From Augmentin] azithromycin Allergy Other Verified 10/13/22 10:02 clavulanic acid Allergy Other Verified 10/13/22 10:02 [From Augmentin] erythromycin base Allergy Unknown Verified 10/13/22 10:02 [From E-Mycin] potassium clavulanate Allergy Other Verified 10/13/22 10:02 [From Augmentin] ibuprofen AdvReac Nausea Verified 10/13/22 10:02 Surgical History History of ear surgery History of eye surgery Social History household members: other details: Lives with her grandmother Smoking Status: Never smoker alcohol intake: never substance use type: does not use ROS ROS ED Constitutional Constitutional ED: Denies chills or fever(s) Musculoskeletal Musculoskeletal: Reports extremity pain; Denies neck pain Integumentary Denies Abrasions, rash or wounds Neurologic Neurologic: Denies paresthesias or weakness EXAM Physical Exam Const Vital Signs: 11/05/22 16:33 Temperature 97.8 F Temperature Source Temporal Pulse Rate 82 Respiratory Rate 16 Blood Pressure 159/112 H Blood Pressure Mean 127 Pulse Ox 97 Oxygen Delivery Method Room Air Positive well nourished, well developed and obese General Appearance ED: well developed and NAD Nutritional Appearance: obese Neck full ROM and supple Back/Spine normal ROM and normal to inspection Extremity normal to inspection and full ROM Extremity Narrative: No bony tenderness in either ankle, more tender in the soft tissue just distal to the medial malleolus bilaterally. No significant signs of injury or deformities. Tender to the right proximal fibula, no deformity there, no other knee issues or tenderness or limited range of motion. Able to stand and walk. Neuro oriented x3, no focal motor deficits and no sensory deficits noted Sensorium / Orientation: alert Psych mental status grossly normal and thought process normal Skin no wounds Rashes: no rashes MDM MDM MDM Narrative Medical decision making narrative: I obtained x-rays of the ankles, 3 views of each 1 on my interpretation are negative/normal, and 2 view x-ray of the right knee shows old fibular head fracture, nothing acute or different compared to the old one. Radiology in agreement with both of these. She was given Naprosyn and Gene wrap, she is asking for orthotic boots for both feet. I think that would create more harm than good here, and they are not indicated. I discussed that with her. Radiography Diagnostic Testing: Clinical Impression(s) from Imaging Studies Ankle X-Ray 11/05/22 17:40 IMPRESSION: Normal x-ray examination of the ankle. Electronically Signed: Gabriel Ray MD at 17:58 EST , Ankle X-Ray 11/05/22 17:40 IMPRESSION: Normal x-ray examination of the ankle. Electronically Signed: Gabriel Ray MD at 17:56 EST Reading Location ID and State: [id number] [place] / [place] , Service support , Knee X-Ray 11/05/22 17:40 IMPRESSION: Old fracture of fibular head. No acute disease. Electronically Signed: Gabirel Ray MD at 18:00 EST , Discharge Plan Triage Chief Complaint: Lower Extremity Injury ED Provider: Reji Henderson Dx/Rx/DC Orders Clinical Impression: Left ankle sprain, Right ankle sprain, Fall from slip, trip, or stumble Instructions: ED Bandage Elastic Wrap, ED Ankle Sprain (Adult) Prescriptions: No Action cetirizine 10 mg tablet 10 mg PO norethindrone (contraceptive) 0.35 MG tablet 1 tab PO DAILY meclizine 25 mg tablet 25 mg PO TID PRN (Reason: vertigo) Qty: 20 0RF levothyroxine 88 mcg tablet 88 mcg PO DAILY Label Comments: take 1 tablet by mouth once daily before breakfast sertraline 100 mg tablet 100 mg PO DAILY Primary Care Provider: Gregor Trujillo Referrals: Gregor Trujillo MD [Primary Care Provider] - 10-14 Days if not better Disposition Disposition: Home, Self Care
--- NOTE | 2022-11-05 17:40 | RAD_ITS ---
STUDY: X-RAY - LEFT ANKLE REASON FOR EXAM: Female, 21 years old. injury TECHNIQUE: 3 view(s) of the ankle. COMPARISON: January 12, 2022. FINDINGS: Normal visualized distal tibia and fibula. Normal medial and lateral malleoli. Normal tibiotalar articulation and ankle mortise. Normal visualized talus and calcaneus. The visualized subtalar, talonavicular, calcaneocuboid and tarsal articulations are normal. The soft tissue structures are unremarkable. RAD/Ankle min 3 Views IMPRESSION: Normal x-ray examination of the ankle. Electronically Signed: Gabriel Ray MD at 17:58 EST ,
--- NOTE | 2022-11-05 17:40 | RAD_ITS ---
STUDY: X-RAY - RIGHT KNEE REASON FOR EXAM: Female, 21 years old. fib head pain TECHNIQUE: 2 view(s) of the knee. COMPARISON: 10/06/2022 FINDINGS: Normal visualized distal femur. Normal fibula. Well-corticated defect fibular head unchanged. Normal proximal tibiofibular articulation. Normal medial femorotibial compartment. Normal lateral femorotibial compartment. Normal patellofemoral articulation. The soft tissue structures are unremarkable. RAD/Knee 1 or 2 Views IMPRESSION: Old fracture of fibular head. No acute disease. Electronically Signed: Gabriel Ray MD at 18:00 EST ,
--- NOTE | 2022-11-05 17:40 | RAD_ITS ---
STUDY: X-RAY - RIGHT ANKLE REASON FOR EXAM: Female, 21 years old. PAIN TECHNIQUE: 3 view(s) of the ankle. COMPARISON: July 18, 2022. FINDINGS: Normal visualized distal tibia and fibula. Normal medial and lateral malleoli. Normal tibiotalar articulation and ankle mortise. Normal visualized talus and calcaneus. The visualized subtalar, talonavicular, calcaneocuboid and tarsal articulations are normal. The soft tissue structures are unremarkable. RAD/Ankle min 3 Views IMPRESSION: Normal x-ray examination of the ankle. Electronically Signed: Gabriel Ray MD at 17:56 EST ,
[2022-11-05] MEDS: Naproxen 250 MG Tablet 500 MG PO (18:18)
== END 2022-11-05 18:46 | disposition home or self-care (01) ==
PROVIDERS: Emergency Provider Emergency Medicine; PCP Family Medicine; Visit Provider Emergency Medicine
DX: S93.401A Sprain of unspecified ligament of right ankle, initial encounter (principal); I10 Essential (primary) hypertension; E66.9 Obesity, unspecified; S93.402A Sprain of unspecified ligament of left ankle, initial encounter; W01.0XXA Fall on same level from slipping, tripping and stumbling without subsequent striking against object, initial encounter
CPT/HCPCS: 73560; 73610; 99283

== ENCOUNTER 2022-11-15 21:23 | Emergency (ER) | payer MEDICAID, SELFPAY ==
[2022-11-15 21:25] VITALS: BP 153/107; PULSE 98; RESP 18; TEMP 35.7; O2SAT 98; BMI 41.0
--- NOTE | 2022-11-15 21:38 | EDS_ITS ---
HPI <SAMAN Chavarria - Last Filed: 11/15/22 21:42> History of Present Illness Chief Complaint: Laceration Narrative Narrative: 22-year-old female presents with abrasion to her right arm. Her mom was stapling papers and accidentally tossed the stapler and it struck her arm. There is no bleeding. Patient then fell and struck her arm on the chair and complains of pain. No head injury. 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 HTN (hypertension) Injury of left index finger Injury of left toe Intellectual disability Knee pain 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 Nondisplaced fracture of middle phalanx of left lesser toe(s), initial encounter for closed fracture Nondisplaced fracture of proximal phalanx of left lesser toe(s), initial encounter for closed fracture Oppositional defiant disorder Osteochondral fracture Right wrist sprain Severe headache Sprain of left index finger Sprain of right hand Sprain of right index finger Thyroid disease Undersocialized conduct disorder, aggressive type, moderate Home Medications norethindrone (contraceptive) 0.35 mg tablet 1 tab PO DAILY hormones/ control 01/21/19 [History Last Taken 04/22/19] meclizine 25 mg tablet 25 mg PO TID PRN vertigo #20 tabs 01/31/21 [Rx Last Taken Unknown] cetirizine 10 mg tablet 10 mg PO 01/01/22 [History Last Taken Unknown] levothyroxine 88 mcg tablet 88 mcg PO DAILY 05/04/22 [History Last Taken Unknown] sertraline 100 mg tablet 100 mg PO DAILY 10/19/22 [History Last Taken Unknown] Allergy/AdvReac Type Severity Reaction Status Date / Time amoxicillin [From Augmentin] Allergy Other Verified 11/15/22 21:24 amoxicillin trihydrate Allergy Other Verified 11/15/22 21:24 [From Augmentin] azithromycin Allergy Other Verified 11/15/22 21:24 clavulanic acid Allergy Other Verified 11/15/22 21:24 [From Augmentin] erythromycin base Allergy Unknown Verified 11/15/22 21:24 [From E-Mycin] potassium clavulanate Allergy Other Verified 11/15/22 21:24 [From Augmentin] ibuprofen AdvReac Nausea Verified 11/15/22 21:24 Surgical History History of ear surgery History of eye surgery Social History household members: other details: Lives with her grandmother Smoking Status: Never smoker alcohol intake: never substance use type: does not use ROS <SAMAN Chavarria - Last Filed: 11/15/22 21:42> ROS ED ROS Narrative Constitutional: Negative for fever, chills, malaise. CVS: Negative for palpitations, chest pain. Respiratory: Negative for shortness of breath. Neuro: Negative for motor/sensory dysfunction. Skin: Positive for abrasion. Musc: Negative for joint pain, swelling, trauma. Heme: Negative for easy bruising, bleeding, lymphadenopathy. EXAM <SAMAN Chavarria - Last Filed: 11/15/22 21:42> Physical Exam Narrative Exam Narrative: CONST: Patient sitting in no acute distress. EYES: Normal inspection. NECK: Normal inspection. RESP: No respiratory distress, CTAB. CVS: Regular rate and rhythm, no murmur, no gallop. SKIN: Two 2 cm linear abrasions on right posterior arm proximal to the elbow. There is no break in the skin. EXTREMITIES: Normal appearance, full range of motion, no bony tenderness of upper extremities, 2+ radial pulses. NEURO: Oriented x4. PSYCH: Normal affect. Const Vital Signs: 11/15/22 21:25 Temperature 96.3 F L Temperature Source Temporal Pulse Rate 98 Respiratory Rate 18 Blood Pressure 153/107 H Blood Pressure Mean 122 Pulse Ox 98 Oxygen Delivery Method Room Air <Dr. Shaheen Arnett, DO - Last Filed: 11/15/22 21:46> Physical Exam Const Vital Signs: 11/15/22 21:25 Temperature 96.3 F L Temperature Source Temporal Pulse Rate 98 Respiratory Rate 18 Blood Pressure 153/107 H Blood Pressure Mean 122 Pulse Ox 98 Oxygen Delivery Method Room Air <Dr. Shaheen Arnett, DO - Last Filed: 11/15/22 21:46> [facility] Treatment and Re-Evaluation Narrative: I have personally performed a face to face assessment of the patient and have reviewed the YARIEL Note. I performed a substantive portion of the visit including all aspects of the following. My france findings include: History: Patient presents with right arm pain that began tonight. Patient was hit in the arm by a stapler that was thrown. Patient has an abrasion over the extensor surface of the right upper arm. Patient states there is minimal pain in this area. Patient then fell and hit her right shoulder. Patient denies any pain with movement. Patient denies any paresthesias or weakness. Patient denies any other injuries. Exam: Vital signs are stable. Patient is afebrile. Patient is in no acute distress. There is a superficial abrasion over the extensor surface of the right upper extremity. There is no edema or ecchymosis. There is no bony crepitance or step-off. There is no deformity. There is full range of motion of the right upper extremity. Radial pulses are equal bilaterally. Sensation was intact to light touch in the radial, median, and ulnar areas. Strength is 5/5 in the radial, median, and ulnar areas. Medical Decision Making: Differential diagnosis includes contusion and abrasion to the right upper extremity. I do not feel x-rays are necessary at this time. Patient was given a dose of Tylenol. Band-Aid dressing was applied. Patient was instructed to continue Tylenol as needed for any pain. Patient was instructed to return if worse in any way. Patient understood and was agreeable with the plan. All questions were answered. Discharge Plan Triage Chief Complaint: Laceration ED Midlevel Provider: Radha Tamez ED Provider: Shaheen Arnett Dx/Rx/DC Orders Clinical Impression: Abrasion of arm, right Instructions: ED Abrasion Prescriptions: No Action cetirizine 10 mg tablet 10 mg PO norethindrone (contraceptive) 0.35 MG tablet 1 tab PO DAILY meclizine 25 mg tablet 25 mg PO TID PRN (Reason: vertigo) Qty: 20 0RF levothyroxine 88 mcg tablet 88 mcg PO DAILY Label Comments: take 1 tablet by mouth once daily before breakfast sertraline 100 mg tablet 100 mg PO DAILY Primary Care Provider: Elderbrock,Gregor Referrals: Gregor Trujillo MD [Primary Care Provider] - Activity Restrictions/Additional Instructions: Take Tylenol or 6 hours as needed Disposition Disposition: Home, Self Care
[2022-11-15] MEDS: Acetaminophen 500 MG Tablet 1000 MG PO (22:00)
== END 2022-11-15 22:11 | disposition home or self-care (01) ==
LOC: ED 21:44
PROVIDERS: Emergency Provider Emergency Medicine; PCP Family Medicine; Visit Provider Emergency Medicine
DX: S50.811A Abrasion of right forearm, initial encounter (principal); I10 Essential (primary) hypertension; W07.XXXA Fall from chair, initial encounter; W22.8XXA Striking against or struck by other objects, initial encounter
CPT/HCPCS: 99283

== ENCOUNTER 2022-11-30 18:37 | Emergency (ER) | payer MEDICAID, SELFPAY ==
[2022-11-30 18:37] VITALS: BP 131/88; PULSE 104; RESP 16; TEMP 36.7; O2SAT 97; BMI 41.1
--- NOTE | 2022-11-30 19:05 | ED.RN ---
PT STATE CANT WAIT AND IS GOING TO [facility]
--- NOTE | 2022-11-30 22:28 | RAD_ITS ---
INDICATION: Trauma, fall EXAMINATION/TECHNIQUE: X-RAY - LEFT XR Wrist Min 3 Views 3 VIEWS COMPARISON: 09/14/2022 FINDINGS: SOFT TISSUES: No soft tissue swelling or gas. No radiopaque foreign body. BONES/JOINTS: No acute fracture. Joint spaces anatomically aligned. RAD/Wrist min 3 Views IMPRESSION: No acute bony injury. Electronically Signed: Joseph Nation MD at 23:31 EST ,
--- NOTE | 2022-11-30 22:28 | RAD_ITS ---
INDICATION: Trauma, fall EXAMINATION/TECHNIQUE: X-RAY - LEFT XR Ankle Min 3 Views 3 VIEWS COMPARISON: 11/05/2022 FINDINGS: SOFT TISSUES: No soft tissue swelling or gas. No radiopaque foreign body. BONES/JOINTS: No acute fracture. Joint spaces anatomically aligned. RAD/Ankle min 3 Views IMPRESSION: No acute bony abnormalities. Electronically Signed: Joseph Nation MD at 23:28 EST ,
--- NOTE | 2022-11-30 22:32 | EDS_ITS ---
HPI History of Present Illness Chief Complaint: Lower Extremity Injury Detail of Chief Complaint: Left wrist, left hip, left ankle pain after fall Informant: patient Narrative Narrative: Patient presents with left wrist, ankle, hip pain after fall 2 days ago. She states she just tripped and lost her balance falling onto her left side. She has been able to ambulate. 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 HTN (hypertension) Injury of left index finger Injury of left toe Intellectual disability Knee pain 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 Nondisplaced fracture of middle phalanx of left lesser toe(s), initial encounter for closed fracture Nondisplaced fracture of proximal phalanx of left lesser toe(s), initial encounter for closed fracture Oppositional defiant disorder Osteochondral fracture Right wrist sprain Severe headache Sprain of left index finger Sprain of right hand Sprain of right index finger Thyroid disease Undersocialized conduct disorder, aggressive type, moderate Home Medications norethindrone (contraceptive) 0.35 mg tablet 1 tab PO DAILY hormones/ control 01/21/19 [History Last Taken 04/22/19] meclizine 25 mg tablet 25 mg PO TID PRN vertigo #20 tabs 01/31/21 [Rx Last Taken Unknown] cetirizine 10 mg tablet 10 mg PO 01/01/22 [History Last Taken Unknown] levothyroxine 88 mcg tablet 88 mcg PO DAILY 05/04/22 [History Last Taken Unknown] sertraline 100 mg tablet 100 mg PO DAILY 10/19/22 [History Last Taken Unknown] Allergy/AdvReac Type Severity Reaction Status Date / Time amoxicillin [From Augmentin] Allergy Other Verified 11/30/22 18:39 amoxicillin trihydrate Allergy Other Verified 11/30/22 18:39 [From Augmentin] azithromycin Allergy Other Verified 11/30/22 18:39 clavulanic acid Allergy Other Verified 11/30/22 18:39 [From Augmentin] erythromycin base Allergy Unknown Verified 11/30/22 18:39 [From E-Mycin] potassium clavulanate Allergy Other Verified 11/30/22 18:39 [From Augmentin] ibuprofen AdvReac Nausea Verified 11/30/22 18:39 Surgical History History of ear surgery History of eye surgery Social History household members: other details: Lives with her grandmother Smoking Status: Never smoker alcohol intake: never substance use type: does not use ROS ROS ED Constitutional Constitutional ED: Denies chills or fever(s) Eyes Eyes: Denies change in vision or discharge from eye(s) ENT ENT ED: Denies discharge from eye(s), rhinorrhea or sore throat Cardiovascular Cardiovascular: Denies chest pain or palpitations Respiratory/Chest Respiratory/Chest: Denies cough or dyspnea Gastrointestinal Gastrointestinal: Denies abdominal pain, diarrhea, nausea or vomiting Genitourinary Genitourinary ED: Denies dysuria Musculoskeletal Musculoskeletal: Reports extremity pain; Denies back pain Integumentary Denies Abrasions or rash Neurologic Neurologic: Denies headache(s) or weakness Psychiatric Psychiatric: Denies anxiety or depression Allergic/Immunologic Allergic/Immunologic ED: Denies lip swelling or urticaria EXAM Physical Exam Const Vital Signs: 11/30/22 18:37 Temperature 98.0 F Temperature Source Temporal Pulse Rate 104 H Respiratory Rate 16 Blood Pressure 131/88 H Blood Pressure Mean 102 Pulse Ox 97 Oxygen Delivery Method Room Air Positive well nourished and well developed General Appearance ED: well developed HEENT Reports normocephalic and head/scalp atraumatic Eyes PERRL and EOMs intact bilaterally Neck supple Chest Wall inspection of chest normal and palpation of chest normal Resp normal respiratory effort and clear to auscultation bilaterally Cardio regular rate and regular rhythm GI normal to inspection, nondistended, normoactive bowel sounds Palpation: soft Extremity Extremity Narrative: Minimal tenderness palpation left wrist. No significant edema or erythema. No abrasions. Good cap refill distally with full range of motion. Minimal tenderness to the anterior left hip with full range of motion. Mild tenderness with minimal edema to the lateral malleolus of the left ankle. Good cap refill distally. Good range of motion. Neuro oriented x3 and no sensory deficits noted Sensorium / Orientation: alert Motor Exam: strength 5/5 throughout Psych mental status grossly normal Skin no rashes or lesions noted MDM MDM MDM Narrative Medical decision making narrative: X-rays of the left wrist and left ankle obtained. I do not feel patient needs imaging of her hip. Radiography Diagnostic Testing: Clinical Impression(s) from Imaging Studies Ankle X-Ray 11/30/22 22:28 IMPRESSION: No acute bony abnormalities. Electronically Signed: Joseph Nation MD at 23:28 EST , Wrist X-Ray 11/30/22 22:28 IMPRESSION: No acute bony injury. Electronically Signed: Joseph Nation MD at 23:31 EST , Treatment and Re-Evaluation :: Left wrist and ankle x-rays per my interpretation reveal no evidence of acute fracture or injury. Radiology interpretation is reviewed and agrees. Gene wrap's are applied to the wrist and ankle. She can take Tylenol as needed for pain. Discharge Plan Triage Chief Complaint: Lower Extremity Injury ED Provider: Dania Conrad Dx/Rx/DC Orders Clinical Impression: Fall, Left wrist sprain, Left ankle sprain, Contusion of hip Instructions: ED Hip Contusion, ED Wrist Sprain, ED Ankle Sprain (Adult) Prescriptions: No Action cetirizine 10 mg tablet 10 mg PO norethindrone (contraceptive) 0.35 MG tablet 1 tab PO DAILY meclizine 25 mg tablet 25 mg PO TID PRN (Reason: vertigo) Qty: 20 0RF levothyroxine 88 mcg tablet 88 mcg PO DAILY Label Comments: take 1 tablet by mouth once daily before breakfast sertraline 100 mg tablet 100 mg PO DAILY Primary Care Provider: Gregor Trujillo Referrals: Gregor Trujillo MD [Primary Care Provider] - As Needed Disposition Disposition: Home, Self Care
== END 2022-11-30 23:54 | disposition home or self-care (01) ==
PROVIDERS: Emergency Provider Emergency Medicine; PCP Family Medicine; Visit Provider Emergency Medicine
DX: S93.402A Sprain of unspecified ligament of left ankle, initial encounter (principal); S70.02XA Contusion of left hip, initial encounter; I10 Essential (primary) hypertension; S63.502A Unspecified sprain of left wrist, initial encounter; W01.0XXA Fall on same level from slipping, tripping and stumbling without subsequent striking against object, initial encounter
CPT/HCPCS: 73110; 73610; 99282

== ENCOUNTER 2023-01-02 22:18 | Emergency (ER) | payer MEDICAID, SELFPAY ==
[2023-01-02 22:21] VITALS: BP 187/144; PULSE 84; RESP 18; TEMP 35.5; O2SAT 100; BMI 42.3
[2023-01-02 23:58] VITALS: PULSE 88; RESP 16; O2SAT 98
--- NOTE | 2023-01-02 23:59 | EX.ED.DYSGE1 ---
HPI History of Present Illness Chief Complaint: Rash Informant: patient Narrative Narrative: Patient states she has had a fine red itchy rash on her left greater than right forearms for 3 days. Also the other day she got stung by a bee at her left wrist, it has been sore but not overly so. She denies any syncope or swelling anywhere. Also, as a third complaint, she states the other day she was cleaning her room and her grandfather kicked the door shut, accidentally kicking it into her left forehead. For the last day or so she has had a headache and some sensitivity to light. No nausea or vomiting or other changes in her vision or focal neurologic symptoms. 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 HTN (hypertension) Injury of left index finger Injury of left toe Intellectual disability Knee pain 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 Nondisplaced fracture of middle phalanx of left lesser toe(s), initial encounter for closed fracture Nondisplaced fracture of proximal phalanx of left lesser toe(s), initial encounter for closed fracture Oppositional defiant disorder Osteochondral fracture Right wrist sprain Severe headache Sprain of left index finger Sprain of right hand Sprain of right index finger Thyroid disease Undersocialized conduct disorder, aggressive type, moderate Home Medications norethindrone (contraceptive) 0.35 mg tablet 1 tab PO DAILY hormones/ control 01/21/19 [History Last Taken 04/22/19] meclizine 25 mg tablet 25 mg PO TID PRN vertigo #20 tabs 01/31/21 [Rx Last Taken Unknown] cetirizine 10 mg tablet 10 mg PO 01/01/22 [History Last Taken Unknown] levothyroxine 88 mcg tablet 88 mcg PO DAILY 05/04/22 [History Last Taken Unknown] sertraline 100 mg tablet 100 mg PO DAILY 10/19/22 [History Last Taken Unknown] Allergy/AdvReac Type Severity Reaction Status Date / Time amoxicillin [From Augmentin] Allergy Other Verified 01/02/23 22:19 amoxicillin trihydrate Allergy Other Verified 01/02/23 22:19 [From Augmentin] azithromycin Allergy Other Verified 01/02/23 22:19 clavulanic acid Allergy Other Verified 01/02/23 22:19 [From Augmentin] erythromycin base Allergy Unknown Verified 01/02/23 22:19 [From E-Mycin] potassium clavulanate Allergy Other Verified 01/02/23 22:19 [From Augmentin] ibuprofen AdvReac Nausea Verified 01/02/23 22:19 Surgical History History of ear surgery History of eye surgery Social History household members: other details: Lives with her grandmother Smoking Status: Never smoker alcohol intake: never substance use type: does not use ROS ROS ED Constitutional Constitutional ED: Denies chills or fever(s) Eyes Eyes: Reports photophobia; Denies blurry vision or diplopia ENT ENT ED: Denies ear pain or sore throat Cardiovascular Cardiovascular: Denies chest pain or palpitations Respiratory/Chest Respiratory/Chest: Denies cough or dyspnea Gastrointestinal Gastrointestinal: Denies abdominal pain, diarrhea, nausea or vomiting Genitourinary Genitourinary ED: Denies dysuria or urinary frequency Musculoskeletal Musculoskeletal: Denies back pain or myalgias Integumentary Reports rash; Denies abscess Neurologic Neurologic: Reports headache(s); Denies paresthesias or weakness EXAM Physical Exam Const Vital Signs: 01/02/23 22:21 Temperature 96 F L Temperature Source Temporal Pulse Rate 84 Respiratory Rate 18 Blood Pressure 187/144 H Blood Pressure Mean 158 Pulse Ox 100 Oxygen Delivery Method Room Air Positive well nourished, well developed and obese General Appearance ED: well developed and NAD Nutritional Appearance: obese HEENT Reports normocephalic and moist mucous membranes HEENT Narrative: No CSF otorhinorrhea. No michaels sign. No periorbital ecchymosis. atraumatic; Negative for tenderness Eyes PERRL, EOMs intact bilaterally and conjunctivae normal Eyes Narrative: photophobia Neck no lymphadenopathy, supple and no meningeal signs Resp normal respiratory effort and clear to auscultation bilaterally GI non-tender and non-distended Palpation: soft Extremity normal to inspection and full ROM Neuro oriented x3 and CN's II-XII intact bilaterally Sensorium / Orientation: awake and alert Speech: speech normal Gait (Neuro): normal gait Motor Exam: strength 5/5 throughout Psych mental status grossly normal Skin Skin Narrative: Mild, if present, fine red blanching macular nonpetechial rash on both forearms. No tenderness. Nothing raised. No bullae. Small area of minor erythema surrounding a scab where she states she was stung by bee and volar left wrist. Lesions: no lesions MDM MDM MDM Narrative Medical decision making narrative: Commend [id number] 1% hydrocortisone for the dermatitis on her forearms, which is very nonspecific but does not appear to be a dangerous rash. She does not need a head scan for this minor head injury, according to the [place] trauma head CT rule. She will be symptomatically treated prior to discharge. Discharge Plan Triage Chief Complaint: Rash Other Complaint: Head Injury ED Provider: Reji Henderson Dx/Rx/DC Orders Clinical Impression: Closed head injury without concussion, Dermatitis Instructions: Self-Care for Skin Rashes Prescriptions: No Action cetirizine 10 mg tablet 10 mg PO norethindrone (contraceptive) 0.35 MG tablet 1 tab PO DAILY meclizine 25 mg tablet 25 mg PO TID PRN (Reason: vertigo) Qty: 20 0RF levothyroxine 88 mcg tablet 88 mcg PO DAILY Label Comments: take 1 tablet by mouth once daily before breakfast sertraline 100 mg tablet 100 mg PO DAILY Primary Care Provider: Gregor Trujillo Referrals: Gregor Trujillo MD [Primary Care Provider] - 1 Week if not improving Activity Restrictions/Additional Instructions: Apply OTC hydrocortisone 1% to affected itchy rash areas twice daily as needed Disposition Disposition: Home, Self Care
[2023-01-03] MEDS: Ketorolac 60 MG/2 ML Vial IM (00:06)
[2023-01-03] MEDS: Metoclopramide 10 MG Tablet PO (00:17)
== END 2023-01-03 00:18 | disposition home or self-care (01) ==
PROVIDERS: Emergency Provider Emergency Medicine; PCP Family Medicine; Visit Provider Emergency Medicine
DX: S09.90XA Unspecified injury of head, initial encounter (principal); L30.9 Dermatitis, unspecified; I10 Essential (primary) hypertension; E66.9 Obesity, unspecified; W23.0XXA Caught, crushed, jammed, or pinched between moving objects, initial encounter
CPT/HCPCS: 96372; 99283

== ENCOUNTER 2023-01-09 15:56 | Emergency (ER) | payer MEDICAID, SELFPAY ==
[2023-01-09 15:56] VITALS: BP 111/90; PULSE 87; RESP 18; TEMP 36.8; O2SAT 98; BMI 37.0
--- NOTE | 2023-01-09 16:07 | EDS_ITS ---
HPI History of Present Illness Chief Complaint: Lower Extremity Injury Narrative Narrative: 22-year-old female here with left foot and ankle pain. States she rolled her left foot and ankle. States since then she had constant severe pain is worse with movement and palpation. She localizes pain to the calf muscle. Denies any ankle pain. She ambulates well in the emergency department. 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 HTN (hypertension) Injury of left index finger Injury of left toe Intellectual disability Knee pain 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 Nondisplaced fracture of middle phalanx of left lesser toe(s), initial encounter for closed fracture Nondisplaced fracture of proximal phalanx of left lesser toe(s), initial encounter for closed fracture Oppositional defiant disorder Osteochondral fracture Right wrist sprain Severe headache Sprain of left index finger Sprain of right hand Sprain of right index finger Thyroid disease Undersocialized conduct disorder, aggressive type, moderate Home Medications norethindrone (contraceptive) 0.35 mg tablet 1 tab PO DAILY hormones/ control 01/21/19 [History Last Taken 04/22/19] meclizine 25 mg tablet 25 mg PO TID PRN vertigo #20 tabs 01/31/21 [Rx Last Taken Unknown] cetirizine 10 mg tablet 10 mg PO 01/01/22 [History Last Taken Unknown] levothyroxine 88 mcg tablet 88 mcg PO DAILY 05/04/22 [History Last Taken Unknown] sertraline 100 mg tablet 100 mg PO DAILY 10/19/22 [History Last Taken Unknown] Allergy/AdvReac Type Severity Reaction Status Date / Time amoxicillin [From Augmentin] Allergy Other Verified 01/09/23 15:58 amoxicillin trihydrate Allergy Other Verified 01/09/23 15:58 [From Augmentin] azithromycin Allergy Other Verified 01/09/23 15:58 clavulanic acid Allergy Other Verified 01/09/23 15:58 [From Augmentin] erythromycin base Allergy Unknown Verified 01/09/23 15:58 [From E-Mycin] potassium clavulanate Allergy Other Verified 01/09/23 15:58 [From Augmentin] ibuprofen AdvReac Nausea Verified 01/09/23 15:58 Surgical History History of ear surgery History of eye surgery Social History household members: other details: Lives with her grandmother Smoking Status: Never smoker alcohol intake: never substance use type: does not use ROS ROS ED ROS Narrative Constitutional: Denies fever HEENT: Denies sore throat Neck: Denies neck pain Cardiovascular: Denies chest pain, syncope Respiratory: Denies shortness of breath GI: Denies nausea vomiting or abdominal pain : Denies changes in urinary habits Musculoskeletal: Endorses calf tenderness Neurologic: Denies numbness weakness or loss of sensation Skin denies rash EXAM Physical Exam Narrative Exam Narrative: Nursing triage notes reviewed, Vital signs reviewed Constitutional: please see mdm Lungs: Clear to auscultation, No wheezing or rales. No increased work of breathing, no conversational dyspnea, no accessory muscle use, no nasal flaring. No respiratory distress noted Heart: Regular rate and rhythm, No murmurs, No rubs and No gallops, 2+ distal pulses (radial, femoral, posterior tibial) in all extremities Abdomen: Soft, there is no tenderness, rigidity, rebound or guarding, no obvious peritoneal signs, no palpable pulsatile abdominal masses, no auscultated abdominal bruit : No CVAT Extremities: No edema, TTP over calf, no obvious TTP over base of the fifth metatarsal, lateral or medial malleolus. No obvious deformity. Neuro: Intact sensation L1-S1 dermatomal distributions. Intact 5/5 strength in hip flexion (T12-L3). Knee extension (L2-L4). Ankle dorsiflexion (L4-L5). Ankle plantar flexion (S1). Great toe extension (L5). 2+ patellar and Achilles DTRs. Skin: No rash or lesions noted Const Vital Signs: 01/09/23 15:56 Temperature 98.3 F Temperature Source Temporal Pulse Rate 87 Respiratory Rate 18 Blood Pressure 111/90 H Blood Pressure Mean 97 Pulse Ox 98 Oxygen Delivery Method Room Air MDM MDM MDM Narrative Medical decision making narrative: Chief Complaint: Left calf pain after twisting her ankle. External records reviewed: Left ankle x-ray from 11/30/2022 is negative I considered the following differential diagnosis: Muscle strain, ankle fracture dislocation, tibial fracture dislocation, DVT. There is no obvious deformity on exam. Patient was neurovascular intact. Tenderness over the calf muscle. Patient had recent trauma and a low DVT risk score and as such I below suspicion for DVT likely suffering from a gastrocnemius strain. Instructed the patient to take ibuprofen and Tylenol. Factors affecting care: Frequent ED utilization Social determinants of health: Poor health literacy History obtained from others: The patient's mother Shared decision making: I will have a discussion with the patient and or visitors regarding risk/benefits of further testing or admission. They will be made aware of of the risk/benefits inherent in this decision they will be given the opportunity to voice understanding. Consults: none Discharge Plan Triage Chief Complaint: Lower Extremity Injury ED Provider: Eris Knox Dx/Rx/DC Orders Clinical Impression: Strain of calf muscle Instructions: ED Contusion, Lower Extremity Prescriptions: No Action cetirizine 10 mg tablet 10 mg PO norethindrone (contraceptive) 0.35 MG tablet 1 tab PO DAILY meclizine 25 mg tablet 25 mg PO TID PRN (Reason: vertigo) Qty: 20 0RF levothyroxine 88 mcg tablet 88 mcg PO DAILY Label Comments: take 1 tablet by mouth once daily before breakfast sertraline 100 mg tablet 100 mg PO DAILY Primary Care Provider: Gregor Trujillo Referrals: Gregor Trujillo MD [Primary Care Provider] - Activity Restrictions/Additional Instructions: Thank you for trusting us with your care today! Please take Tylenol (2 pills, 650 mg), ibuprofen (2 pills, 400 mg) every 6 hours as needed for pain and fever control. Please return to the emergency department if your symptoms change or worsen. Please follow with your primary care physician for further outpatient evaluation and management. Disposition Disposition: Home, Self Care Discharge Date/Time: 01/09/23 16:47
== END 2023-01-09 16:47 | disposition home or self-care (01) ==
PROVIDERS: Emergency Provider Emergency Medicine; PCP Family Medicine; Visit Provider Emergency Medicine
DX: S86.112A Strain of other muscle(s) and tendon(s) of posterior muscle group at lower leg level, left leg, initial encounter (principal); I10 Essential (primary) hypertension; X50.1XXA Overexertion from prolonged static or awkward postures, initial encounter
CPT/HCPCS: 99282

== ENCOUNTER 2023-01-24 03:18 | Emergency (ER) | payer MEDICAID, SELFPAY ==
[2023-01-24 03:20] VITALS: BP 142/94; PULSE 86; RESP 18; TEMP 37.1; O2SAT 98; BMI 54.4
--- NOTE | 2023-01-24 03:28 | EDS_ITS ---
HPI History of Present Illness Chief Complaint: Lower Extremity Injury Narrative Narrative: 22-year-old female here for ankle pain. Notes she hurt her ankle 10 days ago. States tonight she slipped in the garage causing increased pain. Pain is constant, severe worse with movement improved with rest. Patient notes she was able to bear weight immediately after injury. She was able to bear weight here in the emergency department. 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 HTN (hypertension) Injury of left index finger Injury of left toe Intellectual disability Knee pain 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 Nondisplaced fracture of middle phalanx of left lesser toe(s), initial encounter for closed fracture Nondisplaced fracture of proximal phalanx of left lesser toe(s), initial encounter for closed fracture Oppositional defiant disorder Osteochondral fracture Right wrist sprain Severe headache Sprain of left index finger Sprain of right hand Sprain of right index finger Thyroid disease Undersocialized conduct disorder, aggressive type, moderate Home Medications norethindrone (contraceptive) 0.35 mg tablet 1 tab PO DAILY hormones/ control 01/21/19 [History Last Taken 04/22/19] meclizine 25 mg tablet 25 mg PO TID PRN vertigo #20 tabs 01/31/21 [Rx Last Taken Unknown] cetirizine 10 mg tablet 10 mg PO DAILY 01/01/22 [History Last Taken Unknown] levothyroxine 88 mcg tablet 88 mcg PO DAILY 05/04/22 [History Last Taken Unknown] sertraline 100 mg tablet 100 mg PO DAILY 10/19/22 [History Last Taken Unknown] Allergy/AdvReac Type Severity Reaction Status Date / Time amoxicillin [From Augmentin] Allergy Other Verified 01/24/23 03:19 amoxicillin trihydrate Allergy Other Verified 01/24/23 03:19 [From Augmentin] azithromycin Allergy Other Verified 01/24/23 03:19 clavulanic acid Allergy Other Verified 01/24/23 03:19 [From Augmentin] erythromycin base Allergy Unknown Verified 01/24/23 03:19 [From E-Mycin] potassium clavulanate Allergy Other Verified 01/24/23 03:19 [From Augmentin] ibuprofen AdvReac Nausea Verified 01/24/23 03:19 Surgical History History of ear surgery History of eye surgery Social History household members: other details: Lives with her grandmother Smoking Status: Never smoker alcohol intake: never substance use type: does not use ROS ROS ED ROS Narrative Constitutional: Denies fever HEENT: Denies sore throat Neck: Denies neck pain Cardiovascular: Denies chest pain, syncope Respiratory: Denies shortness of breath GI: Denies nausea vomiting or abdominal pain : Denies changes in urinary habits Musculoskeletal: Endorses ankle pain Neurologic: Denies numbness weakness or loss of sensation Skin denies rash EXAM Physical Exam Narrative Exam Narrative: Nursing triage notes reviewed, Vital signs reviewed Constitutional: please see mdm HENT: MMM Eyes: Pupils equal round and reactive to light, Extraocular muscles intact Neck: No stridor, no JVD, full neck ROM Lungs: Clear to auscultation, No wheezing or rales. No increased work of breathing, no conversational dyspnea, no accessory muscle use, no nasal flaring. No respiratory distress noted Heart: Regular rate and rhythm, No murmurs, No rubs and No gallops, 2+ distal pulses (radial, femoral, posterior tibial) in all extremities Abdomen: Soft, there is no tenderness, rigidity, rebound or guarding, no obvious peritoneal signs, no palpable pulsatile abdominal masses, no auscultated abdominal bruit : No CVAT Extremities: No edema, no signs of trauma, no TTP over the medial, lateral malleolus, no TTP over the fifth metatarsal. No TTP over the navicular. Neuro: Intact sensation L1-S1 dermatomal distributions. Intact 5/5 strength in hip flexion (T12-L3). Knee extension (L2-L4). Ankle dorsiflexion (L4-L5). Ankle plantar flexion (S1). Great toe extension (L5). 2+ patellar and Achilles DTRs. Skin: No rash or lesions noted Const Vital Signs: 01/24/23 03:20 Temperature 98.7 F Temperature Source Temporal Pulse Rate 86 Respiratory Rate 18 Blood Pressure 142/94 H Blood Pressure Mean 110 Pulse Ox 98 Oxygen Delivery Method Room Air MDM MDM MDM Narrative Medical decision making narrative: Chief Complaint: Ankle pain External records reviewed: X-ray left ankle from November 2022 shows no acute abnormalities MDM: The patient was hemodynamically stable, afebrile, nontoxic-appearing. I considered the following differential diagnosis: Ankle fracture, dislocation, ankle sprain. Exam without evidence of obvious trauma, no bruising, no deformities, patient had a negative [place] ankle rule evaluation as such does not require advanced imaging of the ankle. She is appropriate discharge home with RICE instructions. Factors affecting care: Chronic musculoskeletal injuries Social determinants of health: Poor health literacy History obtained from others: The patient's mother Shared decision making: I will have a discussion with the patient and or visitors regarding risk/benefits of further testing or admission. They will be made aware of of the risk/benefits inherent in this decision they will be given the opportunity to voice understanding. Consults: None Discharge Plan Triage Chief Complaint: Lower Extremity Injury ED Provider: Eris Knox Dx/Rx/DC Orders Clinical Impression: Ankle sprain Instructions: ED Foot Sprain Prescriptions: No Action cetirizine 10 mg tablet 10 mg PO DAILY norethindrone (contraceptive) 0.35 MG tablet 1 tab PO DAILY meclizine 25 mg tablet 25 mg PO TID PRN (Reason: vertigo) Qty: 20 0RF levothyroxine 88 mcg tablet 88 mcg PO DAILY Label Comments: take 1 tablet by mouth once daily before breakfast sertraline 100 mg tablet 100 mg PO DAILY Primary Care Provider: Gregor Trujillo Referrals: Gregor Trujillo MD [Primary Care Provider] - Activity Restrictions/Additional Instructions: Thank you for trusting us with your care today! Please take Tylenol (2 pills, 650 mg), ibuprofen (2 pills, 400 mg) every 6 hours as needed for pain and fever control. Please return to the emergency department if your symptoms change or worsen. Please follow with your primary care physician for further outpatient evaluation and management. Disposition Disposition: Home, Self Care Discharge Date/Time: 01/24/23 04:00
== END 2023-01-24 04:00 | disposition home or self-care (01) ==
LOC: ED 03:53
PROVIDERS: Emergency Provider Emergency Medicine; PCP Family Medicine; Visit Provider Emergency Medicine
DX: S93.402A Sprain of unspecified ligament of left ankle, initial encounter (principal); I10 Essential (primary) hypertension; W18.40XA Slipping, tripping and stumbling without falling, unspecified, initial encounter
CPT/HCPCS: 99282

== ENCOUNTER 2023-04-09 19:31 | Emergency (ER) | payer MEDICAID, SELFPAY ==
[2023-04-09 19:32] VITALS: BP 124/90; PULSE 99; RESP 16; TEMP 36.8; O2SAT 98; BMI 42.5
--- NOTE | 2023-04-09 21:56 | EX.ED.DYSGE1 ---
HPI History of Present Illness Chief Complaint: Headache Informant: patient and legal guardian Narrative Narrative: Patient presents with complaints of headache and left third MCP pain. Patient states she has had a headache mostly on the left side for about 3 to 4 days. It started when her guardian had to have a scope done. Aide was not able to eat food for most of the day because the procedure took longer than expected. Occasionally she does get headaches but denies history of migraines. But evidently her mother does have significant migraines. She has not had any neurologic deficit. She denies any trauma to the head. No fevers or chills. No visual complaints although bright lights do bother it slightly. She has been eating and drinking now. She also states that yesterday she started to fall and hit her left hand she has pain in her left hand. She points to the third MCP. Her headache started before this partial fall. 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 HTN (hypertension) Injury of left index finger Injury of left toe Intellectual disability Knee pain 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 Nondisplaced fracture of middle phalanx of left lesser toe(s), initial encounter for closed fracture Nondisplaced fracture of proximal phalanx of left lesser toe(s), initial encounter for closed fracture Oppositional defiant disorder Osteochondral fracture Right wrist sprain Severe headache Sprain of left index finger Sprain of right hand Sprain of right index finger Thyroid disease Undersocialized conduct disorder, aggressive type, moderate Home Medications norethindrone (contraceptive) 0.35 mg tablet 1 tab PO DAILY hormones/ control 01/21/19 [History Last Taken 04/22/19] meclizine 25 mg tablet 25 mg PO TID PRN vertigo #20 tabs 01/31/21 [Rx Last Taken Unknown] cetirizine 10 mg tablet 10 mg PO DAILY 01/01/22 [History Last Taken Unknown] levothyroxine 88 mcg tablet 88 mcg PO DAILY 05/04/22 [History Last Taken Unknown] sertraline 100 mg tablet 100 mg PO DAILY 10/19/22 [History Last Taken Unknown] Allergy/AdvReac Type Severity Reaction Status Date / Time amoxicillin [From Augmentin] Allergy Other Verified 04/09/23 19:35 amoxicillin trihydrate Allergy Other Verified 04/09/23 19:35 [From Augmentin] azithromycin Allergy Other Verified 04/09/23 19:35 clavulanic acid Allergy Other Verified 04/09/23 19:35 [From Augmentin] erythromycin base Allergy Unknown Verified 04/09/23 19:35 [From E-Mycin] potassium clavulanate Allergy Other Verified 04/09/23 19:35 [From Augmentin] ibuprofen AdvReac Nausea Verified 04/09/23 19:35 Surgical History History of ear surgery History of eye surgery Social History household members: other details: Lives with her grandmother Smoking Status: Never smoker alcohol intake: never substance use type: does not use ROS ROS ED Constitutional Constitutional ED: Denies chills, fever(s) or sweats Eyes Eyes: Denies blurry vision or diplopia ENT ENT ED: Denies rhinorrhea or sore throat Cardiovascular Cardiovascular: Denies chest pain or palpitations Respiratory/Chest Respiratory/Chest: Denies cough or dyspnea Gastrointestinal Gastrointestinal: Denies nausea or vomiting Musculoskeletal Musculoskeletal: Reports arthralgias; Denies back pain or neck pain Integumentary Denies rash Neurologic Neurologic: Reports headache(s); Denies paresthesias or weakness Hematologic/Lymphatic Hematologic/Lymphatic: Denies easy bleeding or easy bruising Allergic/Immunologic Allergic/Immunologic ED: Denies urticaria EXAM Physical Exam Narrative Exam Narrative: Patient awake alert no acute distress sitting comfortably in bed. HEENT shows no sign of trauma. No erythema. No rash. No vesicles. Tympanic membranes are clear. Oropharynx is clear. No temporal artery tenderness. No sinus tenderness. No nasal drainage. Oropharynx is normal. Neck is supple with no meningismus at all. No lymphadenopathy. Lungs are clear bilaterally. Saturation is normal at 98% on room air showing no hypoxia. Chest shows a normal heart rate. No murmur. Abdomen is obese but otherwise benign. Extremities are normal other than her left hand that does have a slight contusion and swelling in the area of the third MCP. There is no visible deformity though. Her range of motion is still good. Skin shows no rashes or pallor or diaphoresis. Const Vital Signs: 04/09/23 19:32 Temperature 98.3 F Temperature Source Temporal Pulse Rate 99 Respiratory Rate 16 Blood Pressure 124/90 H Blood Pressure Mean 101 Pulse Ox 98 Oxygen Delivery Method Room Air MDM MDM MDM Narrative Medical decision making narrative: Depend interpretation the patient's CT of the head does not show any acute abnormality or bleeding. I see no mass. Final reading is no evidence of acute intracranial abnormality. My independent interpretation of her three-view x-ray of the left hand shows no sign of acute fracture or dislocation. Final reading is pending. I think patient is safe to go. Her headache started after period of not eating. I think we will try Tylenol. The headache was not sudden onset. Is not the worst she is ever had. She has had these before although does not get them all the time. I do not think blood work is going to help. I do not see any indication of meningitis. She has no neck pain stiffness fevers. Radiography Diagnostic Testing: Clinical Impression(s) from Imaging Studies Brain CT 04/09/23 22:06 IMPRESSION: No evidence of acute intracranial abnormality. Electronically Signed: Gregor Lozada MD at 22:25 EDT , Discharge Plan Triage Chief Complaint: Headache ED Provider: Mike Lombardo Dx/Rx/DC Orders Clinical Impression: Headache, Contusion of hand, left Instructions: ED Hand Contusion, ED Headache Unspecified Prescriptions: No Action cetirizine 10 mg tablet 10 mg PO DAILY norethindrone (contraceptive) 0.35 MG tablet 1 tab PO DAILY meclizine 25 mg tablet 25 mg PO TID PRN (Reason: vertigo) Qty: 20 0RF levothyroxine 88 mcg tablet 88 mcg PO DAILY Patient Comments: take 1 tablet by mouth once daily before breakfast sertraline 100 mg tablet 100 mg PO DAILY Primary Care Provider: Gregor Trujillo Referrals: Gregor Trujillo MD [Primary Care Provider] - 3-5 Days if not improving Disposition Disposition: Home, Self Care
--- NOTE | 2023-04-09 22:06 | CT_ITS ---
INDICATION: headache EXAMINATION: CT Head or Brain W/O Contrast Injection TECHNIQUE: Multiple axial images were obtained of the head without intravenous contrast. A radiation dose optimization technique was used for this scan. IV Contrast dosage and agent: None. COMPARISON: Head CT from 03/27/2020 FINDINGS: BRAIN PARENCHYMA: No intra- or extra-axial hemorrhage. No evidence of acute major territorial infarct. No intracranial mass or mass effect. There is preservation of the eid/white matter interface. Posterior fossa structures are unremarkable. CSF SPACES: Mild cavum septum pellucidum variant again noted. No hydrocephalus. Basal cisterns are patent. CALVARIUM, SKULL BASE, PARANASAL SINUSES AND MASTOID AIR CELLS: Calvarium is intact. No acute findings within imaged paranasal sinuses. Mastoid air cells are well-pneumatized. ORBITS: No acute findings, as visualized. CT/Brain/Head without Contrast IMPRESSION: No evidence of acute intracranial abnormality. Electronically Signed: Gregor Lozada MD at 22:25 EDT ,
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
[2023-04-09] MEDS: Acetaminophen 500 MG Tablet 1000 MG PO (22:50)
== END 2023-04-09 22:58 | disposition home or self-care (01) ==
PROVIDERS: Emergency Provider Emergency Medicine; PCP Family Medicine; Visit Provider Emergency Medicine
DX: R51.9 Headache, unspecified (principal); S60.222A Contusion of left hand, initial encounter; W22.8XXA Striking against or struck by other objects, initial encounter; M25.542 Pain in joints of left hand; I10 Essential (primary) hypertension; Z79.890 Hormone replacement therapy; Z79.899 Other long term (current) drug therapy
CPT/HCPCS: 70450; 73130; 99283

== ENCOUNTER 2023-06-04 19:02 | Emergency (ER) | payer MEDICAID, SELFPAY ==
[2023-06-04 19:03] VITALS: BP 138/81; PULSE 90; RESP 16; TEMP 35.9; O2SAT 94; BMI 41.8
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
== END 2023-06-04 21:43 | disposition home or self-care (01) ==
PROVIDERS: Emergency Provider Emergency Medicine; PCP Family Medicine; Visit Provider Emergency Medicine
DX: S00.83XA Contusion of other part of head, initial encounter (principal); Y04.8XXA Assault by other bodily force, initial encounter; I10 Essential (primary) hypertension; Z79.890 Hormone replacement therapy; Z79.899 Other long term (current) drug therapy
CPT/HCPCS: 99283

== ENCOUNTER 2023-07-21 07:10 | Emergency (ER) | payer MEDICAID, SELFPAY ==
[2023-07-21 07:11] VITALS: BP 130/89; PULSE 63; RESP 14; TEMP 36.4; O2SAT 94; BMI 41.6
--- NOTE | 2023-07-21 07:47 | EX.ED.DYSGE1 ---
HPI History of Present Illness Chief Complaint: Back Informant: patient Narrative Narrative: She is here with concerns of having caught a UTI. Her mother's ex- has a UTI. She used the same bathroom as him. She was told do not do this. She states sometimes it howard when she urinates. Triage note mentions back pain. She states sometimes she gets back pain but she is not having it now. Her only complaint is that she might have a UTI. She also thinks she is not drinking as much. But she was drinking a Coke when she came in. I have encouraged her to drink water. She is not having pain. There is no fever. No nausea vomiting. 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 HTN (hypertension) Injury of left index finger Injury of left toe Intellectual disability Knee pain 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 Nondisplaced fracture of middle phalanx of left lesser toe(s), initial encounter for closed fracture Nondisplaced fracture of proximal phalanx of left lesser toe(s), initial encounter for closed fracture Oppositional defiant disorder Osteochondral fracture Right wrist sprain Severe headache Sprain of left index finger Sprain of right hand Sprain of right index finger Thyroid disease Undersocialized conduct disorder, aggressive type, moderate Home Medications norethindrone (contraceptive) 0.35 mg tablet 1 tab PO DAILY hormones/ control 01/21/19 [History Last Taken 04/22/19] meclizine 25 mg tablet 25 mg PO TID PRN vertigo #20 tabs 01/31/21 [Rx Last Taken Unknown] cetirizine 10 mg tablet 10 mg PO DAILY 01/01/22 [History Last Taken Unknown] levothyroxine 88 mcg tablet 88 mcg PO DAILY 05/04/22 [History Last Taken Unknown] sertraline 100 mg tablet 100 mg PO DAILY 10/19/22 [History Last Taken Unknown] Allergy/AdvReac Type Severity Reaction Status Date / Time amoxicillin [From Augmentin] Allergy Other Verified 07/21/23 07:12 amoxicillin trihydrate Allergy Other Verified 07/21/23 07:12 [From Augmentin] azithromycin Allergy Other Verified 07/21/23 07:12 clavulanic acid Allergy Other Verified 07/21/23 07:12 [From Augmentin] erythromycin base Allergy Unknown Verified 07/21/23 07:12 [From E-Mycin] potassium clavulanate Allergy Other Verified 07/21/23 07:12 [From Augmentin] ibuprofen AdvReac Nausea Verified 07/21/23 07:12 Surgical History History of ear surgery History of eye surgery Social History household members: other details: Lives with her grandmother Smoking Status: Never smoker alcohol intake: never substance use type: does not use ROS ROS ED Constitutional Constitutional ED: Denies chills or fever(s) Eyes Eyes: Denies change in vision ENT ENT ED: Denies rhinorrhea Cardiovascular Cardiovascular: Denies chest pain Gastrointestinal Gastrointestinal: Denies abdominal pain, diarrhea, nausea or vomiting Genitourinary Genitourinary ED: Reports dysuria; Denies hematuria or urinary frequency Musculoskeletal Musculoskeletal: Reports other Details: Straight present illness. Patient is not having back pain now. ; Denies back pain or myalgias Integumentary Denies rash Hematologic/Lymphatic Hematologic/Lymphatic: Denies easy bleeding or easy bruising Allergic/Immunologic Allergic/Immunologic ED: Denies urticaria EXAM Physical Exam Narrative Exam Narrative: General: Patient awake alert comfortable sitting on bed. HEENT shows no trauma. Mucous membranes do look a little bit dry but she admits she has not been drinking a lot of fluids. We will get her some here. Neck is supple. Lungs are clear bilateral only. Patient normal at 94% on room air showing no hypoxia and she is not dyspneic when she walks in the apartment. Heart: Regular rate and rhythm. I hear no murmur. Abdomen: Soft nontender mild obesity. Back shows no CVA tenderness. No paraspinal tenderness. Extremities show no trauma. Const Vital Signs: 07/21/23 07:11 Temperature 97.6 F L Temperature Source Temporal Pulse Rate 63 Respiratory Rate 14 Blood Pressure 130/89 H Blood Pressure Mean 102 Pulse Ox 94 Oxygen Delivery Method Room Air MDM MDM MDM Narrative Medical decision making narrative: Since urine shows 0-5 white cells, negative nitrites, only 25 leukocyte Estrace. I do not think this requires treatment for UTI. Patient should return if worsening symptoms fevers hematuria or other concerns. Lab Data Attestation: I reviewed the patient's lab results. Labs: Laboratory Results - last 24 hr 07/21/23 08:32 Urine Color Yellow Urine Clarity Sl. Cloudy Urine pH 6.0 Ur Specific [place] 1.020 Urine Protein Negative Urine Glucose (UA) Normal Urine Ketones Negative Urine Occult Blood 50 H Urine Nitrite Negative Urine Bilirubin Negative Urine Urobilinogen Normal Ur Leukocyte Esterase 25 H Urine RBC 0-5 SEEN Urine WBC 0-5 SEEN Ur Squamous Epith Cells 5-10 SEEN Urine Bacteria 1+ Urine Mucus 0 SEEN Discharge Plan Triage Chief Complaint: Back ED Provider: Mike Lombardo Dx/Rx/DC Orders Clinical Impression: Dysuria Instructions: Dysuria Prescriptions: No Action cetirizine 10 mg tablet 10 mg PO DAILY norethindrone (contraceptive) 0.35 MG tablet 1 tab PO DAILY meclizine 25 mg tablet 25 mg PO TID PRN (Reason: vertigo) Qty: 20 0RF levothyroxine 88 mcg tablet 88 mcg PO DAILY Patient Comments: take 1 tablet by mouth once daily before breakfast sertraline 100 mg tablet 100 mg PO DAILY Primary Care Provider: Gregor Trujillo Referrals: Gregor Trujillo MD [Primary Care Provider] - 3-5 Days Disposition Disposition: Home, Self Care
[2023-07-21 08:41] LABS: Mucous, Urine 0 SEEN /hpf (<or=2+)
[2023-07-21 09:05] LABS: Color, Urine Yellow (Yellow); Glucose, Dipstick Normal (Normal); Ketone-Dipstick Negative (Negative); Leukocyte Esterase-Dipstick 25 /ul (Negative); Nitrite-Dipstick Negative (Negative); Occult Blood-Urine 50 /ul (Negative); Protein-Dipstick Negative (Negative); Urine Bilirubin Dipstick Negative (Negative); Urine Clarity Sl. Cloudy (Clear); Urine Urobilinogen Normal (Normal)
[2023-07-21 09:14] LABS: Bacteria 1+ /hpf (None Seen); Red Blood Cells-Urine 0-5 SEEN /hpf (0-5); Squamous Epithelial Cells - UA 5-10 SEEN /hpf (5-10); White Blood Cells 0-5 SEEN /hpf (0-5)
== END 2023-07-21 09:29 | disposition home or self-care (01) ==
PROVIDERS: Emergency Provider Emergency Medicine; PCP Family Medicine; Visit Provider Emergency Medicine
DX: R30.0 Dysuria (principal); I10 Essential (primary) hypertension
CPT/HCPCS: 81001; 99282

== ENCOUNTER 2023-08-14 19:50 | Emergency (ER) | payer MEDICAID, SELFPAY ==
[2023-08-14 19:52] VITALS: BP 142/97; PULSE 95; RESP 16; TEMP 35.6; O2SAT 97; BMI 42.7
[2023-08-14 19:54] VITALS: BP 142/97; PULSE 95; RESP 16; TEMP 35.6; O2SAT 97
--- NOTE | 2023-08-14 20:07 | EX.ED.UPPERE ---
HPI History of Present Illness HPI Narrative: Female tripped over an extension cord yesterday fell and when she went to catch herself and injured her left wrist. She has had a prior left wrist fracture in the past. No surgery. She is right-hand dominant. Denies any head or neck trauma denies any other complaints. Chief Complaint: Upper Extremity Injury Informant: patient Occured/Mechanism Mechanism/Context: Yes injury and Yes blunt trauma Onset/Context/Timing Onset: Yesterday Context: Sudden Onset Timing: Continuous Quality of Pain: Dull and Aching Current Severity: Mild Maximum Severity: Mild Associated Symptoms Associated Symptoms: Negative for Parasthesia, Weakness or Loss of Funtion Narrative Narrative: 22-year-old female fell yesterday over an extension cord and when she landed she injured her left wrist. 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 HTN (hypertension) Injury of left index finger Injury of left toe Intellectual disability Knee pain 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 Nondisplaced fracture of middle phalanx of left lesser toe(s), initial encounter for closed fracture Nondisplaced fracture of proximal phalanx of left lesser toe(s), initial encounter for closed fracture Oppositional defiant disorder Osteochondral fracture Right wrist sprain Severe headache Sprain of left index finger Sprain of right hand Sprain of right index finger Thyroid disease Undersocialized conduct disorder, aggressive type, moderate Home Medications norethindrone (contraceptive) 0.35 mg tablet 1 tab PO DAILY hormones/ control 01/21/19 [History Last Taken 04/22/19] meclizine 25 mg tablet 25 mg PO TID PRN vertigo #20 tabs 01/31/21 [Rx Last Taken Unknown] cetirizine 10 mg tablet 10 mg PO DAILY 01/01/22 [History Last Taken Unknown] levothyroxine 88 mcg tablet 88 mcg PO DAILY 05/04/22 [History Last Taken Unknown] sertraline 100 mg tablet 100 mg PO DAILY 10/19/22 [History Last Taken Unknown] Allergy/AdvReac Type Severity Reaction Status Date / Time amoxicillin [From Augmentin] Allergy Other Verified 08/14/23 19:51 amoxicillin trihydrate Allergy Other Verified 08/14/23 19:51 [From Augmentin] azithromycin Allergy Other Verified 08/14/23 19:51 clavulanic acid Allergy Other Verified 07/21/23 07:12 [From Augmentin] erythromycin base Allergy Unknown Verified 08/14/23 19:51 [From E-Mycin] potassium clavulanate Allergy Other Verified 08/14/23 19:51 [From Augmentin] ibuprofen AdvReac Nausea Verified 08/14/23 19:51 Surgical History History of ear surgery History of eye surgery Social History household members: other details: Lives with her grandmother Smoking Status: Never smoker alcohol intake: never substance use type: does not use ROS ROS ED ROS Narrative Denies recent illness. Review of Systems ROS Unobtainable: Denies due to encephalopathy Constitutional Constitutional ED: Denies chills or fever(s) Eyes Eyes: Denies blurry vision ENT ENT ED: Denies ear pain Cardiovascular Cardiovascular: Denies chest pain or palpitations Respiratory/Chest Respiratory/Chest: Denies cough or dyspnea Gastrointestinal Gastrointestinal: Denies abdominal pain Genitourinary Genitourinary ED: Denies dysuria or hematuria Musculoskeletal Musculoskeletal: Denies back pain or myalgias Integumentary Denies abscess or Abrasions Neurologic Neurologic: Denies headache(s) Psychiatric Psychiatric: Denies anxiety Endocrine Endocrinology: Denies cold intolerance Hematologic/Lymphatic Hematologic/Lymphatic: Denies easy bleeding or easy bruising Allergic/Immunologic Allergic/Immunologic ED: Denies mouth swelling, tongue swelling or urticaria EXAM Physical Exam Narrative Exam Narrative: 22-year-old female no acute distress. Vital signs stable. H EENT exam unremarkable atraumatic. Pupils round reactive light. Nontender. Neck nontender full range of motion. Back nontender. Lungs clear. Heart regular rate and rhythm no murmur. Chest wall nontender. Abdomen soft nontender. Pelvic girdle intact. Moving all 4 extremities. Neurovascular intact. Left shoulder and elbow are nontender. Left distal radius, ulna and wrist tender. Decreased range of motion due to pain. Minimal swelling. Hand no deformity. No significant tenderness. Able to open and close the hand. Normal radial pulse. Skin intact. Both right upper and both lower extremities are unremarkable. Neurologically she is awake and alert with no focal motor deficits. Const Vital Signs: 08/14/23 19:52 08/14/23 19:54 Temperature 96.0 F L 96.0 F L Temperature Source Temporal Temporal Pulse Rate 95 95 Respiratory Rate 16 16 Blood Pressure 142/97 H 142/97 H Blood Pressure Mean 112 112 Pulse Ox 97 97 Oxygen Delivery Method Room Air Room Air Positive well nourished and well developed; Negative for cachectic, contractures or unkempt General Appearance ED: well developed and NAD; Negative for unkempt, cachectic, contractures, cyanotic or diaphoretic Nutritional Appearance: Negative for cachectic HEENT Reports moist mucous membranes normocephalic and atraumatic; Negative for trauma or tenderness Eyes PERRL and EOMs intact bilaterally General Eye ED: Negative for other Neck full ROM and supple General: Negative for tenderness Lymph Lymphatic: Negative for other Chest Wall inspection of chest normal and palpation of chest normal Chest: Negative for other Resp normal respiratory effort and clear to auscultation bilaterally Effort and Inspection: Negative for pain with movement Auscultation: Negative for rales, rhonchi or wheezes Cardio regular rate, regular rhythm, S1 normal heart sound, S2 normal heart sound and no murmurs Rate: Negative for bradycardia or tachycardic Rhythm: Negative for abnormal rhythm GI non-tender, non-distended and no masses Inspection: Negative for abdominal distention Auscultation: normoactive bowel sounds Palpation: soft; Negative for tender or guarding Back/Spine no CVA tenderness General Back: Negative for CVA tenderness Cervical Spine: Negative for cervical spine tenderness Thoracic Spine / Upper Back: Negative for thoracic spinal tenderness Lumbar Spine / Lower Back: Negative for lumbar spinal tenderness Extremity normal to inspection and full ROM Extremity Narrative: Except tenderness to her left wrist. Mild swelling. Decreased range of motion due to pain. No gross bony deformity. General Extremety ED: Negative for edema General Extremity: Negative for edema Neuro oriented x3 and CN's II-XII intact bilaterally Sensorium / Orientation: alert, oriented to person, oriented to place and oriented to time; Negative for orientation impaired, lethargic or stuporous Motor Exam: strength 5/5 throughout Psych mental status grossly normal Appearance: Negative for unkempt Attitude: No agitated Mood & Affect: Negative for depressed, anxious or tearful Skin General Skin Exam: Negative for petechiae Lesions: no lesions Rashes: no rashes Trauma: no lacerations or abrasions; Negative for abrasion, laceration or puncture MDM MDM MDM Narrative Medical decision making narrative: 22-year-old female well-known to this emergency department. Fell yesterday injuring her left wrist. Sprain versus fracture. X-ray being obtained. She took one of her own naproxen for pain. Patient doing well at 8:25 PM. We went over her x-rays. She will be treated as a wrist sprain. Ice and elevate. Motrin for pain and swelling. Tylenol for pain. Velcro wrist splint. Off in 1 week. Follow-up as needed. Radiography Diagnostic Testing: Left wrist x-ray, 3 views, interpreted by myself shows shows no acute abnormality. No fracture. No dislocation. I compared this to films that were done in December of this year which significant change. I did go over the x-rays with the patient. Discharge Plan Triage Chief Complaint: Upper Extremity Injury ED Provider: Godfrey Mcintosh Dx/Rx/DC Orders Clinical Impression: Fall, Left wrist sprain Instructions: ED Wrist Sprain Prescriptions: No Action cetirizine 10 mg tablet 10 mg PO DAILY norethindrone (contraceptive) 0.35 MG tablet 1 tab PO DAILY meclizine 25 mg tablet 25 mg PO TID PRN (Reason: vertigo) Qty: 20 0RF levothyroxine 88 mcg tablet 88 mcg PO DAILY Patient Comments: take 1 tablet by mouth once daily before breakfast sertraline 100 mg tablet 100 mg PO DAILY Primary Care Provider: Gregor Trujillo Referrals: Grgeor Trujillo MD [Primary Care Provider] - 10-14 Days if not better Activity Restrictions/Additional Instructions: The x-rays of your wrist look good. No broken bones. Ice and elevate to decrease pain and swelling. Return for pain and swelling. Tylenol for pain. May wear the left wrist Velcro splint for comfort. After 1 week you should take it off. Follow-up with your doctor if not improving. Disposition Disposition: Home, Self Care
--- NOTE | 2023-08-14 20:09 | RAD_ITS ---
STUDY: X-RAY - LEFT WRIST REASON FOR EXAM: Female, 22 years old. Fall, wrist pain TECHNIQUE: 3 view(s) of the wrist were obtained. COMPARISON: 01/11/2023 FINDINGS: Normal visualized distal radius and ulna. Normal radiocarpal articulation. Stable distal radioulnar articulation. Normal carpal bones. Normal carpal articulations. Normal carpometacarpal articulation of the thumb. Normal second through fifth carpometacarpal articulations. Normal visualized metacarpal bones. The soft tissue structures are unremarkable. RAD/Wrist min 3 Views IMPRESSION: No fracture or malalignment. Electronically Signed: Michael Godinez MD ([place]) at 20:27 EST ,
[2023-08-14 20:33] VITALS: RESP 16
== END 2023-08-14 20:34 | disposition home or self-care (01) ==
PROVIDERS: Emergency Provider Emergency Medicine; PCP Family Medicine; Visit Provider Emergency Medicine
DX: S63.92XA Sprain of unspecified part of left wrist and hand, initial encounter (principal); W18.09XA Striking against other object with subsequent fall, initial encounter; I10 Essential (primary) hypertension
CPT/HCPCS: 73110; 99283

== ENCOUNTER → 2023-09-29 | Outpatient (CLI) | payer MEDICAID, SELFPAY ==
--- NOTE | 2023-09-29 11:08 | US_ITS ---
HISTORY: Cyst base of thumb near basal joint. TECHNIQUE: Routine and color duplex imaging of the left hand. 5 images. COMPARISON: Radiograph 08/14/2023. FINDINGS: No cystic or solid lesion demonstrated. US/Ext Non Vasc Limited/Soft Tiss IMPRESSION: Unremarkable sonographic examination. Electronically Signed: Naina Pendleton MD at 13:39 EST ,
== END | disposition home or self-care (01) ==
LOC: US 11:05
PROVIDERS: PCP Family Medicine; Referring Provider Physician Assistant; Visit Provider Physician Assistant
DX: M85.641 Other cyst of bone, right hand (principal)
CPT/HCPCS: 76882

== ENCOUNTER 2023-10-11 01:21 | Emergency (ER) | payer MEDICAID, SELFPAY ==
[2023-10-11 01:23] VITALS: BP 132/90; PULSE 101; RESP 16; TEMP 36.1; O2SAT 99; BMI 42.7
--- NOTE | 2023-10-11 01:43 | EDS_ITS ---
HPI History of Present Illness Chief Complaint: Chest Other Narrative Narrative: Patient presents with cough and chest congestion. Patient was sent around but left prior to my evaluation. Patient did not want to wait. Patient left without being seen. 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 Nondisplaced fracture of middle phalanx of left lesser toe(s), initial encounter for closed fracture Nondisplaced fracture of proximal phalanx of left lesser toe(s), initial encounter for closed fracture Oppositional defiant disorder Osteochondral fracture Right wrist sprain Severe headache Sprain of left index finger Sprain of right hand Sprain of right index finger Thyroid disease Undersocialized conduct disorder, aggressive type, moderate Home Medications norethindrone (contraceptive) 0.35 mg tablet 1 tab PO DAILY hormones/ control 01/21/19 [History Last Taken 04/22/19] meclizine 25 mg tablet 25 mg PO TID PRN vertigo #20 tabs 01/31/21 [Rx Last Taken Unknown] cetirizine 10 mg tablet 10 mg PO DAILY 01/01/22 [History Last Taken Unknown] levothyroxine 88 mcg tablet 88 mcg PO DAILY 05/04/22 [History Last Taken Unknown] sertraline 100 mg tablet 100 mg PO DAILY 10/19/22 [History Last Taken Unknown] Allergy/AdvReac Type Severity Reaction Status Date / Time amoxicillin [From Augmentin] Allergy Other Verified 10/11/23 01:22 amoxicillin trihydrate Allergy Other Verified 10/11/23 01:22 [From Augmentin] azithromycin Allergy Other Verified 10/11/23 01:22 clavulanic acid Allergy Other Verified 10/11/23 01:22 [From Augmentin] erythromycin base Allergy Unknown Verified 10/11/23 01:22 [From E-Mycin] potassium clavulanate Allergy Other Verified 10/11/23 01:22 [From Augmentin] ibuprofen AdvReac Nausea Verified 10/11/23 01:22 Surgical History History of ear surgery History of eye surgery Social History household members: other details: Lives with her grandmother Smoking Status: Never smoker alcohol intake: never substance use type: does not use EXAM Physical Exam Const Vital Signs: 10/11/23 01:23 10/11/23 01:23 Temperature 97 F L Temperature Source Temporal Pulse Rate 101 H Respiratory Rate 16 Respiratory Effort Short of Breath Blood Pressure 132/90 H Blood Pressure Mean 104 Pulse Ox 99 Discharge Plan Triage Chief Complaint: Chest Other ED Provider: Provider,Ed Physician Dx/Rx/DC Orders Prescriptions: No Action cetirizine 10 mg tablet 10 mg PO DAILY norethindrone (contraceptive) 0.35 MG tablet 1 tab PO DAILY meclizine 25 mg tablet 25 mg PO TID PRN (Reason: vertigo) Qty: 20 0RF levothyroxine 88 mcg tablet 88 mcg PO DAILY Patient Comments: take 1 tablet by mouth once daily before breakfast sertraline 100 mg tablet 100 mg PO DAILY Primary Care Provider: Gregor Trujillo
--- OUTSIDE RECORDS SUMMARY | 2023-10-11 01:48 | XMS RPT_ITS | CCD ---
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 170.[address] CANDELARIA BOUDREAXU DO [facility] 04-21-2023 21:59-0400 Body temperature 97.88 [degF] DR CANDELARIA BOUDREAUX DO [facility] 04-21-2023 21:59-0400 Body weight 123.[address] CANDELARIA BOUDREAUX DO [facility] 04-21-2023 21:59-0400 Diastolic Blood Pressure Non-Invasive [address] CANDELARIA BOUDREAUX DO [facility] 04-21-2023 21:59-0400 Heart rate 80 /min DR GAONA KANIKA DO [facility] 04-21-2023 21:59-0400 Reason For Taking VItal Signs DR CANDELARIA BOUDREAUX DO [facility] 04-21-2023 21:59-0400 Respiratory rate 18 /min DR GAONA KBAVTAR DO [facility] 04-21-2023 21:59-0400 Systolic Blood Pressure Non-Invasive [address] GAONA KBAVTAR DO [facility] 04-12-2023 11:32-0400 Body weight 122.92 kg Al Greg PROVIDER SCRIBE.FIELD GEOLOGIST Work Phone: [facility] 04-12-2023 11:32-0400 Diastolic blood pressure 82 mm[Hg] Al Greg PROVIDER SCRIBE.FIELD GEOLOGIST Work Phone: [facility] 04-12-2023 11:32-0400 Heart rate 76 /min Al Greg PROVIDER SCRIBE.FIELD GEOLOGIST Work Phone: [facility] 04-12-2023 11:32-0400 Respiratory rate 16 /min Al Greg PROVIDER SCRIBE.FIELD GEOLOGIST Work Phone: [facility] 04-12-2023 11:32-0400 Systolic blood pressure 126 mm[Hg] Al Greg PROVIDER SCRIBE.FIELD GEOLOGIST Work Phone: [facility] 04-07-2023 11:34-0400 Body weight 122.47 kg Mamta Corneliusf PROVIDER SCRIBE.FIELD GEOLOGIST Work Phone: [facility] 04-07-2023 11:34-0400 Diastolic blood pressure 80 mm[Hg] Mamta Tannhof PROVIDER SCRIBE.FIELD GEOLOGIST Work Phone: [facility] 04-07-2023 11:34-0400 Heart rate 96 /min Mamta Tannhof PROVIDER SCRIBE.FIELD GEOLOGIST Work Phone: [facility] 04-07-2023 11:34-0400 Respiratory rate 16 /min Mamta Tannhof PROVIDER SCRIBE.FIELD GEOLOGIST Work Phone: [facility] 04-07-2023 11:34-0400 SaO2% (BldA) [Mass fraction] 95 % Mamta Tannhof PROVIDER SCRIBE.FIELD GEOLOGIST Work Phone: [facility] 04-07-2023 11:34-0400 Systolic blood pressure 130 mm[Hg] Mamta Tannhof PROVIDER SCRIBE.FIELD GEOLOGIST Work Phone: [facility] 04-06-2023 17:14-0400 Body temperature 97.39 [degF] Silvia Praaraceliler-Ashish PROVIDER SCRIBE.FIELD GEOLOGIST Work Phone: [facility] 04-06-2023 17:14-0400 Body weight 123.2 kg Silvia Praisler-Wood PROVIDER SCRIBE.FIELD GEOLOGIST Work Phone: [facility] 04-06-2023 17:14-0400 Diastolic blood pressure 88 mm[Hg] Silvia Praisler-Wood PROVIDER SCRIBE.FIELD GEOLOGIST Work Phone: [facility] 04-06-2023 17:14-0400 Heart rate 98 /min Silvia Praisler-Wood PROVIDER SCRIBE.FIELD GEOLOGIST Work Phone: [facility] 04-06-2023 17:14-0400 Respiratory rate 18 /min Silvia Praisler-Wood PROVIDER SCRIBE.FIELD GEOLOGIST Work Phone: [facility] 04-06-2023 17:14-0400 SaO2% (BldA) [Mass fraction] 97 % Silvia Praisler-Wood PROVIDER SCRIBE.FIELD GEOLOGIST Work Phone: [facility] 04-06-2023 17:14-0400 Systolic blood pressure 126 mm[Hg] Silvia Praisler-Wood PROVIDER SCRIBE.FIELD GEOLOGIST Work Phone: [facility] 03-31-2023 14:06-0400 Body temperature 97.5 [degF] Ernesto Mckinney PROVIDER SCRIBE.FIELD GEOLOGIST Work Phone: [facility] 03-31-2023 14:06-0400 Body weight 97.98 kg Ernesto Mckinney PROVIDER SCRIBE.FIELD GEOLOGIST Work Phone: [facility] 03-31-2023 14:06-0400 Diastolic blood pressure 74 mm[Hg] Ernesto Mckinney PROVIDER SCRIBE.FIELD GEOLOGIST Work Phone: [facility] 03-31-2023 14:06-0400 Heart rate 91 /min Ernesto Mckinney PROVIDER SCRIBE.FIELD GEOLOGIST Work Phone: [facility] 03-31-2023 14:06-0400 Respiratory rate 18 /min Ernesto Mckinney PROVIDER SCRIBE.FIELD GEOLOGIST Work Phone: [facility] 03-31-2023 14:06-0400 SaO2% (BldA) [Mass fraction] 96 % Ernesto Mckinney PROVIDER SCRIBE.FIELD GEOLOGIST Work Phone: [facility] 03-31-2023 14:06-0400 Systolic blood pressure 112 mm[Hg] Ernesto Mckinney PROVIDER SCRIBE.FIELD GEOLOGIST Work Phone: [facility] 03-28-2023 22:19-0400 Body temperature 99.32 [degF] DR ELVIA BORREGO MD [facility] 03-28-2023 22:19-0400 Diastolic Blood Pressure Non-Invasive [address] ELVIA BORREGO MD [facility] 03-28-2023 22:19-0400 Heart rate 94 /min DR ELVIA BORREGO MD [facility] 03-28-2023 22:19-0400 Respiratory rate 18 /min DR ELVIA BORREGO MD [facility] 03-28-2023 22:19-0400 Systolic Blood Pressure Non-Invasive [address] ELVIA BORREGO MD [facility] 01-21-2023 10:50-0400 Body height 170.2 cm Ericka Larkin MD Work Phone: [facility] 01-21-2023 10:50-0400 Body mass index (BMI) [Ratio] 41.66 kg/m2 Ericka Larkin MD Work Phone: [facility] 01-21-2023 10:50-0400 Body weight 120.66 kg Ericka Larkin MD Work Phone: [facility] 01-15-2023 14:00-0400 Body height 170.2 cm LULA XIAO MD [facility] 01-15-2023 14:00-0400 Body temperature 98.06 [degF] LULA XIAO MD [facility] 01-15-2023 14:00-0400 Body weight 90.9 kg LULA XIAO MD [facility] 01-15-2023 14:00-0400 Diastolic Blood Pressure Non-Invasive 80 1 LULA XIAO MD [facility] 01-15-2023 14:00-0400 Heart rate 86 /min LULA XIAO MD [facility] 01-15-2023 14:00-0400 Respiratory rate 16 /min LULA XIAO MD [facility] 01-15-2023 14:00-0400 Systolic Blood Pressure Non-Invasive 128 1 LULA XIAO MD [facility] 01-13-2023 11:54-0400 Body height 170.2 cm Ericka Larkin MD Work Phone: [facility] 01-13-2023 11:54-0400 Body mass index (BMI) [Ratio] 41.66 kg/m2 Ericka Larkin MD Work Phone: [facility] 01-13-2023 11:54-0400 Body weight 120.66 kg Ericka Larkin MD Work Phone: [employer] 12-15-2022 23:20-0400 Diastolic Blood Pressure Non-Invasive 78 1 KIMBERLY REICHFIELD DO [facility] 12-15-2022 23:20-0400 Heart rate 91 /min KIMBERLY REICHFIELD DO [facility] 12-15-2022 23:20-0400 Reason For Taking VItal Signs KIMBERLY REICHFIELD DO [facility] 12-15-2022 23:20-0400 Respiratory rate 18 /min KIMBERLY REICHFIELD DO [facility] 12-15-2022 23:20-0400 Systolic Blood Pressure Non-Invasive 119 1 KIMBERLY REICHFIELD DO [facility] 12-15-2022 20:55-0400 Diastolic Blood Pressure Non-Invasive 84 1 KIMBERLY REICHFIELD DO [facility] 12-15-2022 20:55-0400 Heart rate 88 /min KIMBERLY REICHFIELD DO [facility] 12-15-2022 20:55-0400 Reason For Taking VItal Signs KIMBERLY REICHFIELD DO [facility] 12-15-2022 20:55-0400 Respiratory rate 18 /min KIMBERLY REICHFIELD DO [facility] 12-15-2022 20:55-0400 Systolic Blood Pressure Non-Invasive 124 1 KIMBERLY REICHFIELD DO [facility] 12-15-2022 19:25-0400 Blood Pressure Location KIMBERLY REICHFIELD DO [facility] 12-15-2022 19:25-0400 Body temperature 97.16 [degF] [facility] DO [facility] 12-15-2022 19:25-0400 Diastolic Blood Pressure Non-Invasive 81 1 [facility] DO [facility] 12-15-2022 19:25-0400 Heart rate 96 /min [facility] DO [facility] 12-15-2022 19:25-0400 Systolic Blood Pressure Non-Invasive 118 1 [facility] DO [facility] 12-15-2022 10:11-0400 Body temperature 97.88 [degF] CAMACHO DELGADO MD [facility] 12-15-2022 10:11-0400 Body weight 123 kg CAMACHO DELGADO MD [facility] 12-15-2022 10:11-0400 Diastolic Blood Pressure Non-Invasive 79 1 CAMACHO DELGADO MD [facility] 12-15-2022 10:11-0400 Heart rate 78 /min CAMACHO DELGADO MD [facility] 12-15-2022 10:11-0400 Respiratory rate 18 /min CAMACHO DELGADO MD [facility] 12-15-2022 10:11-0400 Systolic Blood Pressure Non-Invasive 124 1 CAMACHO DELGADO MD [facility] 02-17-2022 15:54-0400 Body temperature 97.81 [degF] Gaurang Nesheim DO Work Phone: [facility] 02-17-2022 15:54-0400 Diastolic blood pressure 73 mm[Hg] Gaurang Nesheim DO Work Phone: [facility] 02-17-2022 15:54-0400 Heart rate 85 /min Gaurang Nesheim DO Work Phone: [facility] 02-17-2022 15:54-0400 Respiratory rate 16 /min Gaurang Nesheim DO Work Phone: [facility] 02-17-2022 15:54-0400 SaO2% (BldA) [Mass fraction] 96 % Gaurang Nesheim DO Work Phone: [facility] 02-17-2022 15:54-0400 Systolic blood pressure 139 mm[Hg] Gaurang Nesheim DO Work Phone: [facility] 02-17-2022 14:20-0400 Body mass index (BMI) [Ratio] 41.66 kg/m2 Gaurang Nesheim DO Work Phone: [facility] 02-17-2022 14:20-0400 Body weight 120.66 kg Gaurang Nesheim DO Work Phone: [facility] 12-07-2019 19:19-0400 Body Temperature 98.4 [degF] [employer], [place] 12-07-2019 19:19-0400 BP Diastolic 88 mm[Hg] [employer] , [place] 12-07-2019 19:19-0400 BP Systolic 152 mm[Hg] [employer] , [place] 12-07-2019 19:19-0400 Pulse (Heart Rate) 92 /min [employer], [place] 12-07-2019 19:19-0400 Pulse Oximetry 95 % [employer] , [place] 12-07-2019 19:19-0400 Respiratory Rate 20 /min [employer], [place] Encounters Encounter Date Encounter Type Care Provider Facility Start: 10-07-2023 End: 10-07-2023 ambulatory MARLON DASILVA Facility:[facility] Start: 10-01-2023 End: 10-01-2023 Emergency department patient visit IKER TRUJILLO Facility:[facility] Start: 10-01-2023 End: 10-01-2023 ambulatory FARRUKH MAXWELL Facility:[facility] Start: 09-13-2023 Telephone encounter Iker petersen MD Work Phone: [facility] Procedures Date Procedure Procedure Detail Performing Clinician Start: 08-31-2023 Brncdilat rspse spmt ry pre&post-brncdilat admn Farrukh Maxwell MD Work Phone: Start: 08-30-2023 Radiologic exam ches t 2 views Farrukh Maxwell MD Work Phone: Start: 08-23-2023 WIDIP-BIONTNintu Oy COVI D-19 VACCINE ( SEASON) AGE 12+ YR Iker Trujillo MD Work Phone: Start: 07-07-2023 INFLUENZA VACCINE, A GE 6 MO - 64 YR, QUADRIVALENT (AFLURIA, FLULAVAL, FLUZONE) Mamta Saez PROVIDER SCRIBE.FIELD GEOLOGIST Work Phone: Start: 03-31-2023 Radex ankle complete minimum 3 views Ernesto Mckinney PROVIDER SCRIBE.FIELD GEOLOGIST Work Phone: Start: 03-22-2023 Radex foot complete minimum 3 views Sruthi Vijaya Work Phone: Start: 02-01-2023 Radex ankle complete minimum 3 views Sruthi Lilly Work Phone: Start: 01-13-2023 Radex ankle complete minimum 3 views Ericka Larkin MD Work Phone: Start: 11-26-2022 Radiologic examinati on tibia & fibula 2 views Veronica Jiang DO Work Phone: Start: 10-23-2022 Thyrotropin [Units/v olume] in Serum or Plasma [facility] Start: 02-17-2022 End: 02-17-2022 Gluc bld gluc mntr dev cleared fda spec home use Gaurang G Nesheim DO Work Phone: Start: 02-17-2022 Radex foot complete minimum 3 views Gaurang G Nesheim DO Work Phone: Start: 12-07-2019 Radiologic examinati on tibia & fibula 2 views Contreras Wilkins Work Phone: Plan of Treatment Date Care Activity Detail Author Start: 2050 Zoster Vaccines (1 of 2) Zoste r Vaccines (1 of 2) [facility] Start: 12-16-2030 DTaP/Tdap/Td Vaccine s (8 - Td or Tdap) DTaP/Tdap/Td Vaccines (8 - Td or Tdap) [facility] Start: 12-16-2030 Urine microalbumin profile [facility] Start: 08-23-2024 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 Disease Visit Annual PCP Team Chronic Disease Visit [facility] Start: 08-17-2024 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 Disease Visit Annual PCP Team Chronic Disease Visit [facility] Start: 07-07-2024 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 Disease Visit Annual PCP Team Chronic Disease Visit [facility] Start: 07-07-2024 Chlamydia Screening (-) Ch lamydia Screening () [facility] Immunizations Immunization Date Immunization Notes Care Provider Margaret salgado 08-23-2023 COVID-19 vaccine, ag e 12+ yr, season (PFIZER-BIONTNintu Oy) Iker Trujillo MD Work Phone: [facility] 07-07-2023 influenza, injectabl e, quadrivalent, contains preservative Mamta Saez APRN.CNP Work Phone: [facility] 10-22-2021 influenza, injectabl e, quadrivalent, contains preservative Sruthi Lilly Work Phone: [facility] 10-22-2021 influenza virus vacc ine, unspecified formulation [facility] 1 [facility] 01-16-2021 COVID-19 original vaccine, full dose, monovalent (MODERNA) Sruthi Lilly Work Phone: [facility] 12-19-2020 COVID-19 original vaccine, full dose, monovalent (MODERNA) Sruthi Lilly Work Phone: [facility] 12-16-2020 tetanus toxoid, redu vivi diphtheria toxoid, and acellular pertussis vaccine, adsorbed Sruthi Lilly Work Phone: [facility] 06-29-2019 influenza, injectabl e, quadrivalent, preservative free Sruthi [employer] Work Phone: [facility] 07-30-2018 influenza, injectabl e, quadrivalent, preservative free Sruthi [employer] Work Phone: [facility] Work Phone: 06-07-2017 influenza, injectabl e, quadrivalent, contains preservative Sruthi [employer] Work Phone: [facility] Work Phone: 06-07-2017 meningococcal polysaccharide (groups A, C, Y and W-135) diphtheria toxoid conjugate vaccine (MCV4P) [employer] Work Phone: [facility] Work Phone: 06-29-2016 influenza, injectabl e, quadrivalent, preservative free [employer] Work Phone: [facility] Work Phone: 08-21-2014 human papilloma viru s vaccine, quadrivalent [employer] Work Phone: [facility] Work Phone: 08-21-2014 influenza, injectabl e, quadrivalent, preservative free Sruthi Testrake Work Phone: [facility] Work Phone: 08-04-2013 influenza virus vacc ine, unspecified formulation [facility] Work Phone: [facility] 05-02-2013 human papilloma viru s vaccine, quadrivalent [employer] Work Phone: [facility] 07-16-2012 influenza virus vacc ine, unspecified formulation [employer] Work Phone: [facility] 05-11-2012 human papilloma viru s vaccine, quadrivalent [employer] Work Phone: [facility] 05-11-2012 Meningococcal, MCV4, unspecified conjugate formulation(groups A, C, Y and W-135) Sruthi [employer] Work Phone: [facility] 05-11-2012 tetanus toxoid, redu vivi diphtheria toxoid, and acellular pertussis vaccine, adsorbed Sruthi [employer] Work Phone: [facility] 09-15-2010 influenza virus vacc ine, unspecified formulation Sruthi Zumbl Work Phone: [facility] 08-08-2009 influenza virus vacc ine, unspecified formulation Sruthi [employer] Work Phone: [facility] Work Phone: 08-06-2009 novel influenza-H1N1 -09, all formulations Sruthi [employer] Work Phone: [facility] 01-09-2009 hepatitis A vaccine, unspecified formulation Sruthi Zumbl Work Phone: [facility] Work Phone: 08-04-2007 influenza virus vacc ine, unspecified formulation Sruthi Zumbl Work Phone: [facility] Work Phone: 05-17-2007 hepatitis A vaccine, unspecified formulation Sruthi Zumbl Work Phone: [facility] Work Phone: 05-17-2007 varicella virus vaccine Sarkis hayden [employer] Work Phone: [facility] Work Phone: 08-05-2006 influenza virus vacc ine, unspecified formulation Sruthi Zumbl Work Phone: [facility] Work Phone: 06-28-2006 diphtheria, tetanus toxoids and acellular pertussis vaccine Sruthi [employer] Work Phone: [facility] Work Phone: 06-28-2006 measles, mumps and rubella virus vaccine Sruthi [employer] Work Phone: [facility] Work Phone: 06-28-2006 poliovirus vaccine, inactivated Sruthi [employer] Work Phone: [facility] Work Phone: 06-07-2006 diphtheria, tetanus toxoids and pertussis vaccine Sruthi Zumbl Work Phone: [facility] Work Phone: 06-07-2006 measles, mumps and rubella virus vaccine Sruthi [employer] Work Phone: [facility] Work Phone: 06-07-2006 poliovirus vaccine, inactivated Sruthi [employer] Work Phone: [facility] Work Phone: 02-27-2003 hepatitis B vaccine, pediatric or pediatric/adolescent dosage Sruthi Zumbl Work Phone: [facility] Work Phone: 02-27-2003 pneumococcal conjuga te vaccine, 7 valent Sruthi Zumbl Work Phone: [facility] Work Phone: 09-04-2002 influenza virus vacc ine, unspecified formulation Sruthi [employer] Work Phone: [facility] Work Phone: 08-07-2002 influenza virus vacc ine, unspecified formulation [facility] Work Phone: [facility] Work Phone: 07-04-2002 diphtheria, tetanus toxoids and acellular pertussis vaccine Sruthi Zumbl Work Phone: [facility] Work Phone: 07-04-2002 haemophilus influenz ae type b vaccine, HbOC conjugate Sruthi Zumbl Work Phone: [facility] Work Phone: 07-04-2002 hepatitis B vaccine, pediatric or pediatric/adolescent dosage [facility] Work Phone: [facility] Work Phone: 06-01-2002 hepatitis B vaccine, pediatric or pediatric/adolescent dosage Sruthi Zumbl Work Phone: [facility] Work Phone: 06-01-2002 measles, mumps and rubella virus vaccine Sruthi [employer] Work Phone: [facility] Work Phone: 06-01-2002 varicella virus vaccine Sarkis blake [employer] Work Phone: [facility] Work Phone: 07-06-2001 diphtheria, tetanus toxoids and acellular pertussis vaccine Sruthi [employer] Work Phone: [facility] Work Phone: 07-06-2001 haemophilus influenz ae type b vaccine, HbOC conjugate Sruthi [employer] Work Phone: [facility] Work Phone: 07-06-2001 pneumococcal conjuga te vaccine, 7 valent Sruthi Zumbl Work Phone: [facility] Work Phone: 07-06-2001 poliovirus vaccine, inactivated Sruthi Zumbl Work Phone: [facility] Work Phone: 03-31-2001 diphtheria, tetanus toxoids and acellular pertussis vaccine Sruthi [employer] Work Phone: [facility] Work Phone: 03-31-2001 haemophilus influenz ae type b vaccine, HbOC conjugate Sruthi Zumbl Work Phone: [facility] Work Phone: 03-31-2001 pneumococcal conjuga te vaccine, 7 valent Sruthi Zumbl Work Phone: [facility] Work Phone: 03-31-2001 poliovirus vaccine, inactivated Sruthi [employer] Work Phone: [facility] Work Phone: 01-19-2001 diphtheria, tetanus toxoids and acellular pertussis vaccine Sruthi [employer] Work Phone: [facility] Work Phone: 01-19-2001 haemophilus influenz ae type b vaccine, HbOC conjugate Sruthi [employer] Work Phone: [facility] Work Phone: 01-19-2001 pneumococcal conjuga te vaccine, 7 valent Sruthi Lilly Work Phone: [facility] Work Phone: 01-19-2001 poliovirus vaccine, inactivated Sruthi Lilly Work Phone: [facility] Work Phone: Payers Date Payer Category Payer Medicaid [id number] 2019 Medicaid [id number] 2019 Private Health Insurance [id number] 2000 Unknown [id number] [id number] 2000 Unknown [id number] 2.16.8 [id number] 2000 Unknown [id number] 2.16.8 [id number] 2000 Unknown [id number] 2.16.8 [id number] 2000 Unknown [id number] 2.16.8 [id number] 2000 Unknown [id number] 2.16.8 [id number] 2000 Unknown [id number] 2.16.8 [id number] 2000 Unknown [id number] 2.16.8 [id number] 2000 Unknown [id number] 2.16.8 [id number] 2000 Unknown [id number] 2.16.8 [id number] Social History Date Type Detail Facility Start: 05-11-2012 End: 12-07-2019 [facility] 12-07-2019 End: 01-21-2023 Alcohol intake Ex-drinker (finding) [facility] Isra BILL Y Start: 2000 Sex Assigned At Not on file C [facility] Start: 05-11-2012 End: 12-07-2019 Tobacco use and exposure Smokeless tobacco non-user [facility] Work Phone: Start: 02-07-2022 End: 01-13-2023 Exposure to SARS-CoV-2 (event) Not sure [facility] Work Phone: Sex Assigned At Female [facility] Start: 10-23-2022 History SDOH Alcohol Frequency 1 [facility] Start: 10-23-2022 History SDOH Alcohol Std Drinks 0 [facility] Start: 01-15-2023 End: 09-13-2023 Alcohol intake Current non-drinker of alcohol (finding) [facility] Start: 04-01-2023 End: 08-08-2023 History of Social function [facility] Work Phone: Start: 04-01-2023 End: 08-08-2023 Tobacco use panel [facility] Work Phone: National Score (1-10 0), lower number is lower risk 75 [facility] Work Phone: Start: 03-03-2021 Gender identity Choose not to disclo se [facility] Start: 03-03-2021 Sexual orientation Bisexual (finding ) [facility] Functional Status Date Assessment Result Facility 08-24-2023 Functional Status Independent [facility] 08-24-2023 Functional Status ID band on, Allergy Band on, Call device within reach, Bed in low position, Wheels locked, Upper/Half-Length side-rails up, Visitor at bedside, Safety level maintained [facility] 05-23-2023 Functional Status Independent [facility] 05-23-2023 Functional Status Ambulation in [place] 04-21-2023 Functional Status Independent [facility] 04-21-2023 Functional Status Ambulating in [place], Ambulating in room, Awake, Bathroom privileges [facility] 03-28-2023 Functional Status Awake [facility] 01-15-2023 Functional Status Ambulating in [place], Ambulating in room, Awake [facility] 12-15-2022 Functional Status Standard Safet y ID band on, Call device within reach, Bed in low position, Wheels locked, Bedside Cart Locked, Visitor at bedside, Safety level maintained [facility] 12-15-2022 Functional Status ID band on, Allergy Band on, Call device within reach, Bed in low position, Wheels locked, Upper/Half-Length side-rails up [facility] Mental Status Date Assessment Result Facility 08-24-2023 Mental Status Orientation Oriented x 4 [facility] 08-24-2023 Mental Status [facility] 05-23-2023 Mental Status Orientation Oriented x 4 [facility] 05-23-2023 Mental Status [facility] 04-21-2023 Mental Status Orientation Oriented x 4 [facility] 04-21-2023 Mental Status [facility] 03-28-2023 Mental Status Oriented x 4 [facility] 01-15-2023 Mental Status Oriented x 4 [facility] 12-15-2022 Mental Status Orientation Oriented x 4 [facility] 12-15-2022 Mental Status Oriented x 4 [facility] Clinical Notes 06-19-2014 to 10-07-2023 Telephone Encounter - Mary Spaulding Ma - 09/13/2023 2:02 PM ESTTelephone Encounter - Iker Trujillo MD - 09/13/2023 1:42 PM ESTTelephone Encounter - Estefani Amato Ma - 09/13/2023 1:24 PM EST Note Date & Type Note Facility 10-07-2023 Note [facility] 10-07-2023 Note [facility] 10-01-2023 Note HNO ID: [id number] Author: SHAKEEL RHODES RT(R) Service: ? Author Type: Technologist Type: Progress Notes Filed: 10/01/2023 17:03 Note Text: Radiology Service Progress Note PATIENT NAME: Aide Lopez DATE OF SERVICE: October 01, 2023 TIME: 5:02 PM PATIENT IDENTITY VERIFICATION COMPLETED USING TWO (2) IDENTIFIERS: Name and Date of confirmed by patient verbally and Name and Date of confirmed by identification band. FALL SCREENING: Has the patient had 2 falls in the last year or 1 fall with injury or currently using an Ambulatory Assistive Device (Walker, Cane, Wheelchair, Crutches, etc.)? Emergency Room Patient: Screened in ED PATIENT GENDER DATA: Female. status: : No status: NO. PATIENT RELEVANT IMPLANT DATA REVIEWED: Not Applicable RADIOLOGY DEPARTMENT: General X-ray: Exam(s) Completed: Lower Extremity X-Ray(s): Knee, AP / LAT Left and Ankle, Left PERIPHERAL IV DATA: Not applicable SIGNED BY: RT Sheyla(R) October 01, 2023 5:02 PM [facility] 10-01-2023 Note [facility] 09-13-2023 Note [facility] 09-13-2023 Miscellaneous Notes Prabha notified that forms are ready for warehouse picker at [facility]. Copy made for records. Mary Spaulding Ma Form done Iker Trujillo MD Pt and Guardian, Prabha brought in new Probate forms that need completed for court tomorrow. Tried to bring in last week but Provider was out of office. Needs completed by tomorrow and wants to warehouse picker later today. Old copies attached they would like back. Notified Prabha would route to PCP and call her back later today to warehouse picker at [facility]. Make copy of new paperwork and call Prabha back at [phone] when ready to warehouse picker with all other papers at [facility]. Routed to PCP. 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 Regular astigmatism of both eyes 3. Developmental disability Finalized spec rx Unsure of accuracy of prescription due to patient cooperation Follow-up in 1 year or sooner as needed Balwinder Corbin, ARABELLA September 09, 2023 4:17 PM documented in this encounter [facility] 09-03-2023 Note [facility] 09-03-2023 History of Presen t illness Narrative Images from the original note were not included. Follow Up Visit Chief Complaint Aide Lopez is a 22 year old adult who presents today for follow up office visit. Patient presents with: Left Knee - Established Patient, Knee Pain History of Present Illness PAIN EVALUATION 09/03/2023 0938 Pain Level: 10 Pain Location: Leg-Left Description: Sore;Aching;Throbbing;Sharp Duration Amount of Time: 3 Duration Units: Days Frequency: Intermittent Intervention/Comfort measure: -- crutches, ice, knee brace, lidocane patches HPI: Aide Lopez is a 22 year old adult for a follow up visit new issue of left leg/knee pain. They have sustained multiple falls over the past few weeks and has sustained multiple injuries. They state that this is due to instability in the legs. Pain history is noted as above. Denies calf pain, numbness, tingling, fever, chills or other constitutional symptoms. Patient is using crutches and a knee brace. Is there any overall improvement in your condition? No Any new injury, since being seen last: Yes, multiple falls REVIEW OF SYMPTOMS: Patient did not have, and does not currently have, any weight loss, malaise, fever, chills, headache, chest pain, chest pressure, palpitations, cough, shortness of breath, orthopnea, paroxsymal nocturnal dyspnea, nausea, vomiting, diarrhea, constipation, melena, hematochezia, urinary difficulties, prolonged bleeding, easily bruising, heat or cold intolerance, new onset joint pain or swelling, new onset extremity weakness or numbness, new onset auditory or visual disturbances, lightheadedness, dizziness, partial loss of consciousness or full loss of consciousness. Current Outpatient Medications Medication Sig capsaicin (ZOSTRIX) 0.025 % cream Apply to affected area three times a day. buPROPion SR (WELLBUTRIN SR) 100 mg 12 hr tablet Take 100 mg by mouth two times a day. levothyroxine (SYNTHROID) 88 mcg tablet Take 1 tablet by mouth daily before breakfast. fluticasone (FLONASE) 50 mcg/actuation nasal spray Use 2 Sprays in each nostril once daily. Rinse mouth after use. ammonium lactate (LAC-HYDRIN) 12 % cream Apply twice a day to keratosis pilaris on arms, legs as needed naproxen (NAPROSYN) 500 mg tablet Take 1 tablet by mouth two times a day with meals. TAKE WITH FOOD lidocaine (LIDODERM) 5 % Apply 1 Patch as directed once daily. to affected area. Remove patch after 12 hours. Norethindrone, Contraceptive, (ORTHO MICRONOR) 0.35 mg tablet Take 1 tablet by mouth once daily. pantoprazole DR (PROTONIX) 20 mg tablet Take 1 tablet by mouth once daily. beginning 48 hours prior to menses and continue for 5 days while taking Naproxen. acetaminophen (TYLENOL EXTRA STRENGTH) 500 mg tablet Take 1 tablet by mouth every 8 hours as needed for pain. CPAP Please fit patient for new mask as well as instruct patient on machine sewer. polyethylene glycol 3350 (MIRALAX) 17 gram/dose powder Take 8.5 g by mouth once daily. Mix with 4 ounces of liquid and allow time to dissolve. (1/2 capful = 8.5 g = approx 2 level teaspoons) Cholecalciferol, Vitamin D3, (VITAMIN D-3) 25 mcg (1,000 unit) chew Take 1 tablet by mouth once daily. (Patient not taking: Reported on 08/30/2023) No current facility-administered medications for this visit. Physical Exam Vitals: [facility] 08/06/2023 Psych: Pleasant, good affect and mood General Appearance: Well appearing, alert, in no acute distress, well-hydrated, well nourished.. Skin: Skin color, texture, turgor normal, no suspicious rashes or lesions. Peripheral Pulses: Normal. Neurologic: Gait normal. Reflexes normal and symmetric. Sensation grossly intact.. Lymph Nodes: No cervical lymphadenopathy, No supraclavicular lymphadenopathy, No axillary lymphadenopathy., and No inguinal lymphadenopathy.. Respiratory: No recent pulmonary infection, hemoptysis, chronic cough, or shortness of breath at rest Rheumatologic: Joint deformities: left knee pain Right Knee Exam Right knee exam is normal. Muscle Strength The patient has normal right knee strength. Tenderness The patient is experiencing no tenderness. Range of Motion Extension: normal Flexion: normal Tests Mai: Anterior - negative Posterior - negative Drawer: Anterior - negative Posterior - negative Other Erythema: absent Sensation: normal Pulse: present Swelling: none Left Knee Exam Tenderness The patient is experiencing tenderness in the lateral joint line. Range of Motion Extension: abnormal Flexion: abnormal Tests Sharon: Lateral - positive Mai: Anterior - negative Posterior - negative Drawer: Anterior - negative Posterior - negative Other Erythema: absent Sensation: normal Pulse: present Swelling: none Comments: Neg homans bilaterally Assessment and Plan Radiographs: I have independently reviewed films and my findings are the same. and I have reviewed the images with the patient and family. Last XR Knee - Impression Only XR KNEE INJURY 4V AP/LAT/OBLS LEFT Exam End: 08/30/2023 3:21 PM (Final result) Impression: IMPRESSION: No acute osseous abnormality. ... Impression: Encounter Diagnosis ICD-10-CM 1. Acute pain of left knee M25.562 MRI KNEE WO IVCON LEFT 2. Tear of lateral meniscus of left knee, current, unspecified tear type, initial encounter S83.282A MRI KNEE WO IVCON LEFT Today, in detail, through a thorough evaluation, we discussed possible etiologies of pain and our plans for further diagnostic and therapeutic interventions. We discussed strategies for decreasing pain and improving strength, stability and motion. Patient's questions were answered in detailed. Patient verbalizes understanding and agrees with the treatment plan as discussed. Fall on black ice Mri left knee as fall and now with locking and instability and pain laterally with ttp and sharon signs Veronica YanezP.HMedhat documented in this encounter [facility] 08-31-2023 Note [facility] 08-31-2023 Note [facility] 08-31-2023 History of Presen t illness Narrative Program_ID:[id number] Access Code: [email or web address] URL: [email or web address] Date: 08-31-2023 Prepared By: Marlon Dasilva Program Notes Exercises - Supine Bridge - 1 x daily - 7 x weekly - 3 - 10 - Clamshell - 1 x daily - 7 x weekly - 4 - 10 - Sidelying Hip Abduction - 1 x daily - 7 x weekly - 4 - 10 - Supine Active Straight Leg Raise - 1 x daily - 7 x weekly - 4 - 10 - Squat with Chair Touch - 1 x daily - 7 x weekly - 4 - 10 - Sitting Knee Extension with Resistance - 1 x daily - 7 x weekly - 3 - 10 Episode Visit Count: 2 Therapist That Will Accept/Oversee The Plan Of Care: Marlon Dasilva PT Start of Care Date: 08/20/23 Onset Date: 05/26/23 Plan of Care Certification Date: 08/20/23 Next Certification Due Date: 09/24/23 Patient Identified by Name and Date of : Yes REHABILITATION AND SPORTS THERAPY PHYSICAL THERAPY TREATMENT NOTE ASSESSMENT: Aide Lopez tolerated the session with no issues. Aide Lopez demonstrated decreased motivation to complete all exercises. Pt taking long breaks between exercises as she gets cramps in her R hip per pt report. The patient will continue to benefit from ongoing skilled physical therapy to progress toward set goals. PLAN FOR NEXT VISIT: PN SUBJECTIVE: Pt went to the ER for a fall and she hurt the L leg. Now wearing a brace on the L. Pt states that she does not want to continue with anymore exercises. Pt states the only real pain is in the left leg now where she fell. Pain: Pain Pain Level: 0 Pain Location: Knee - Right Additional Pain Information : Location 2 Pain Level 2: 10 Pain Location 2: Knee - Left OBJECTIVE MEASURES WITH LEVEL OF FUNCTION: Knee ext ROM 0 degrees TREATMENT: Therapeutic Exercise: 1: SLR x 6 reps (Pt sayd she cannot due anymore due to cramps in the hip) 2: Resisted hip ER seated GTB x 10 3: Seated LAQ GTB x 10 4: Seated knee flexion GTB x 10 5: Supine march x 10 6: *Discussed the importance of the exercises and how to properly perform all of the exercises for maximal benefit. Discussed how exercise can bring on soreness and discomfort and this is not hurting the leg and should be expected. Skilled Intervention: Patient was educated in proper exercise technique and purpose for exercises. Correct performance of therapeutic exercises was facilitated with verbal and visual cuing. Billing Therapeutic Exercise Treatment Minutes: 43 Skilled Treatment Time Minutes (timed and untimed codes): 43 Total Session Time (minutes): 43 Session Start Time : 1423 Session Stop Time : 1506 Marlon Dasilva PT documented in this encounter [facility] 08-31-2023 History of Presen t illness Narrative PULM FUNCTION SMARTBLOCK: Provider: Farrukh Maxwell MD Assisting Tech: Sofi Ford RPFT Spirometry: 1 documented in this encounter [facility] 08-30-2023 Note HNO ID: [id number] Author: Flavia Cantu CT Service: Radiology Author Type: Technologist Type: Progress Notes Filed: 08/30/2023 1:07 PM Note Text: Radiology Service Progress Note PATIENT NAME: Aide Lopez DATE OF SERVICE: August 30, 2023 TIME: 1:06 PM PATIENT IDENTITY VERIFICATION COMPLETED USING TWO (2) IDENTIFIERS: Name and Date of confirmed by patient verbally and Name and Date of confirmed by identification band. FALL SCREENING: Has the patient had 2 falls in the last year or 1 fall with injury or currently using an Ambulatory Assistive Device (Walker, Cane, Wheelchair, Crutches, etc.)? No PATIENT GENDER DATA: Female. status: : No status: NO. PATIENT RELEVANT IMPLANT DATA REVIEWED: Not Applicable RADIOLOGY DEPARTMENT: General X-ray: Exam(s) Completed: Chest X-Ray PERIPHERAL IV DATA: Not applicable SIGNED BY: BRUCE Dubois August 30, 2023 1:06 PM [facility] 08-30-2023 Miscellaneous Notes Please inform the patient that her chest x ray is normal Thanks documented in this encounter [facility] 08-30-2023 Note [facility] 08-30-2023 History of Presen t illness Narrative Radiology Service Progress Note PATIENT NAME: Aide Lopez DATE OF SERVICE: August 30, 2023 TIME: 1:06 PM PATIENT IDENTITY VERIFICATION COMPLETED USING TWO (2) IDENTIFIERS: Name and Date of confirmed by patient verbally and Name and Date of confirmed by identification band. FALL SCREENING: Has the patient had 2 falls in the last year or 1 fall with injury or currently using an Ambulatory Assistive Device (Walker, Cane, Wheelchair, Crutches, etc.)? No PATIENT GENDER DATA: Female. status: : No status: NO. PATIENT RELEVANT IMPLANT DATA REVIEWED: Not Applicable RADIOLOGY DEPARTMENT: General X-ray: Exam(s) Completed: Chest X-Ray PERIPHERAL IV DATA: Not applicable SIGNED BY: BRUCE Dubois August 30, 2023 1:06 PM documented in this encounter [facility] 08-30-2023 Miscellaneous Notes Patient called and stated is in [facility], patient fell yesterday on black ice and hurt her left leg, states keeps giving out on her Patient asked if Dr Jiang would be okay with patient getting her leg check out. This nurse informed patient if you need it looked at and it its giving you trouble have it assessed. Patient wanted me to update Dr Jiang and has an appointment on 09/03/23. MARY Agarwal LPN documented in this encounter [facility] 08-30-2023 History of Presen t illness Narrative Images from the original note were not included. [facility]PART[facility] OFFICE VISIT CONSULT 08/30/2023 Patient Name: Aide Lopez PRIMARY CARE PHYSICIAN: Iker Trujillo MD REASON FOR CONSULT: SOB, MORBID OBESITY, ADHD REFERRING PHYSICIAN: No ref. provider found My final recommendations will be communicated to the requesting health care provider by way of the shared medical record for internal providers or by letter via US mail for external providers. CHIEF COMPLAINT: sob HISTORY OF PRESENT ILLNESS: Aide Lopez is a 22 year old adult, BMI 45.27 kg/m2 with a PMH significant for morbid obesity, ADHD, mental retardation, history of congenital heart anomaly, status post fall and wrist injury reported to the emergency room recently, referred to our office for evaluation of abnormal exam. The patient was told in the ER that she has 1 lung weaker than the other lung Patient accompanied by her mother Does not answer all the questions - mother is providing most of the medical history while patient is laying down on the exam table Nodded her head yes when asked about shortness of breath and cough never diagnosed with asthma Does not use any inhaler the symptoms are mild, intermittent, occur at rest and on exertion. No cxr or pft in c\panda Adopted Mother encouraging her about weight loss MMRC Dyspnea Scale: 0. Not troubled by breathlessness except on strenuous exercise Short of breath when hurrying or walking up a slight hill Walks slower than contemporaries on the level because of breathlessness, or has to stop for breath when walking at own pace Stops for breath after about 100 m or after a few minutes on the level Too breathless to leave the house, or breathless when dressing or undressing Environmental/ Occupational Exposure History: Pets: No birds Asbestos: No significant exposure Silica: No significant exposure [place]burn: No significant exposure Mold: No significant exposure Hot tub: No significant exposure Fumes: No significant exposure Metal dust: No significant exposure Beryllium: No significant exposure Dust: No significant exposure Medications: No relevant exposure for interstitial lung diseases PAST MEDICAL HISTORY Diagnosis Date ADHD (attention deficit hyperactivity disorder) 10/30/2010 initial dx by developmentalist 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 TONSILLECTOMY & ADENOIDECTOMY <AGE 12 04/2010 Dr. Mazariegos TYMPANOSTOMY LOCAL/TOPICAL ANESTHESIA 04/2010 Dr. Mazariegos FAMILY HISTORY Problem Relation Age of Onset Asthma Mother other (hearing problem) Mother Heart Father other (paralyzed due to accident) Sister Asthma Maternal Uncle Emphysema Maternal Grandmother Asthma Maternal Grandmother Heart Paternal Grandmother no pertinent family history Social History Tobacco Use Smoking status: Never Smokeless tobacco: Never Vaping Use Vaping Use: Never used Substance Use Topics Alcohol use: No Drug use: No ALLERGIES ALLERGIES Allergen Reactions Augmentin [Amoxicil* Hives Erythromycin Rash Ibuprofen GI Upset CURRENT OUTPATIENT MEDICATIONS buPROPion SR (WELLBUTRIN SR) 100 mg 12 hr tablet Take 100 mg by mouth two times a day. levothyroxine (SYNTHROID) 88 mcg tablet Take 1 tablet by mouth daily before breakfast. fluticasone (FLONASE) 50 mcg/actuation nasal spray Use 2 Sprays in each nostril once daily. Rinse mouth after use. ammonium lactate (LAC-HYDRIN) 12 % cream Apply twice a day to keratosis pilaris on arms, legs as needed naproxen (NAPROSYN) 500 mg tablet Take 1 tablet by mouth two times a day with meals. TAKE WITH FOOD polyethylene glycol 3350 (MIRALAX) 17 gram/dose powder Take 8.5 g by mouth once daily. Mix with 4 ounces of liquid and allow time to dissolve. (1/2 capful = 8.5 g = approx 2 level teaspoons) lidocaine (LIDODERM) 5 % Apply 1 Patch as directed once daily. to affected area. Remove patch after 12 hours. Norethindrone, Contraceptive, (ORTHO MICRONOR) 0.35 mg tablet Take 1 tablet by mouth once daily. pantoprazole DR (PROTONIX) 20 mg tablet Take 1 tablet by mouth once daily. beginning 48 hours prior to menses and continue for 5 days while taking Naproxen. acetaminophen (TYLENOL EXTRA STRENGTH) 500 mg tablet Take 1 tablet by mouth every 8 hours as needed for pain. Cholecalciferol, Vitamin D3, (VITAMIN D-3) 25 mcg (1,000 unit) chew Take 1 tablet by mouth once daily. (Patient not taking: Reported on 08/30/2023) CPAP Please fit patient for new mask as well as instruct patient on machine sewer. REVIEW OF SYSTEMS Review of Systems Constitutional: Negative for chills, fever and weight loss. Respiratory: Positive for shortness of breath. Negative for cough, hemoptysis, sputum production and wheezing. Cardiovascular: Negative for leg swelling. The remainder of review of systems was negative. PHYSICAL EXAM BP 117/82 Pulse 109 Wt 270 lb 1 oz (122.5kg) SpO2 94% LMP 07/06/2023 General appearance: Well appearing, alert, in no acute distress, well-hydrated, well nourished. Eyes: PERRLA Neck: no palpable masses Lungs: Lungs clear to auscultation. No wheezing, rhonchi, rales Heart: RRR without murmur, gallop, or rubs. No ectopy , normal peripheral pulses, no peripheral edema Abdomen: Abdomen soft, non-tender. Bowel sounds normal. No masses, organomegaly Extremities: Normal, Warm, No cyanosis, no clubbing, No edema, and Nontender Neuro: no focal weakness Psychiatry: Alert, Oriented X 3 DATA Diagnostic tests reviewed for today's visit, including films and specimens, personally reviewed by me: Most recent labs and imaging results. No results found for this or any previous visit (from the past 8760 hour(s)). Recent Results (from the past 30506 hour(s)) ECHO Collection Time: 03/20/22 3:43 PM Impression CONCLUSIONS: - Technically difficult exam due to body habitus. - Exam indication: Cardiac murmur - The left ventricle is normal in size. Left ventricular systolic function is normal. EF = 67 5% (2D 4-ch.) Normal left ventricular diastolic function. - The right ventricle is normal in size. Right ventricular systolic function is normal. - There are no significant valvular abnormalities. - Definity unavailable. - The patient has not had a prior CC echocardiographic exam for comparison. * * * Final * * * Immunizations: Unknown ASSESSMENT/PLAN: 1. SOB (shortness of breath) - ICD9: 786.05, ICD10: R06.02 (primary diagnosis) Poor historian Proceed with cxr and spirometry - XR CHEST 2V FRONTAL/LAT - SPIROMETRY - BASELINE AND POST DILATOR 2. Morbid obesity (HCC) - ICD9: 278.01, ICD10: E66.01 Referral to weight loss clinic Farrukh Maxwell MD, YULIANA Staff, Respiratory [place] [facility] CC: Iker Trujillo MD No ref. provider found documented in this encounter [facility] 08-24-2023 Hospital Discharg e instructions Patient Education 08/24/2023 16:56:27 Upper Extremity Contusion Upper Extremity Contusion You have a contusion (bruise) of an upper extremity (arm, wrist, hand, or fingers). Symptoms include pain, swelling, and skin discoloration. No bones are broken. This injury may take from a few days to a few weeks to heal. During that time, the bruise may change from reddish in color, to purple-blue, to green-yellow, to yellow-brown. Home care Unless another medicine was prescribed, you can take acetaminophen, ibuprofen, or naproxen to control pain. (If you have chronic liver or kidney disease or ever had a stomach ulcer or gastrointestinal bleeding, talk with your doctor before using these medicines.) Elevate the injured area to reduce pain and swelling. As much as possible, sit or lie down with the injured area raised about the level of your heart. This is especially important during the first 48 hours. Ice the injured area to help reduce pain and swelling. Wrap a cold source (ice pack or ice cubes in a plastic bag) in a thin towel. Apply to the bruised area for 20 minutes every 1 to 2 hours the first day. Continue this 3 to 4 times a day until the pain and swelling goes away. If a sling was provided, you may remove it to shower or bathe. To prevent joint stiffness, do not wear it for more than 1 week. Follow-up care Follow up with your healthcare provide, or as advised. Call if you are not improving within the next 1 to 2 weeks. When to seek medical advice Call your healthcare provider right away if any of these occur: Increased pain or swelling Hand or fingers become cold, blue, numb or tingly Signs of infection: Warmth, drainage, or increased redness or pain around the injury Inability to move the injured body part Frequent bruising for unknown reasons [id number] [employer] [place] [address]. All rights reserved. This information is not intended as a substitute for professional medical care. Always follow your healthcare professional's instructions. Follow Up Care 08/24/2023 15:57:06 With:IKER TRUJILLO MD Address: [address] [place] [address] [id number] When:2-4 days [facility] 08-24-2023 Note Discharge Instructions Thank you for allowing [facility] to assist you with your healthcare needs. The following is important discharge information regarding your hospital visit. Diagnosis from Today's Visit Wrist contusion Wrist pain-swelling What to Do Next Instructions from Your Care Team No qualifying data available. Post Acute Orders No qualifying data available. You Need to Schedule the Following Appointments Follow Up with IKER TRUJILLO MD When Within 2-4 days Where: [address] [place], [place] [id number]- Allergies Augmentin (Ibuprofen) erythromycin ibuprofen Medications Please ask your primary doctor or pharmacist before taking any other medication not listed, including over the counter drugs, herbal medications, vitamins and or supplements as they may interact with your home medications. What How Much When Why Instructions Last Dose Unchanged cholecalciferol (Vitamin D3 25 mcg (1000 intl units) oral capsule) 1 cap by mouth Every day Unchanged dicyclomine (dicyclomine 10 mg oral capsule) 1 cap by mouth Four (4) times a day Duration: 5 Days Unchanged famotidine (Pepcid 40 mg oral tablet) 1 tab(s) by mouth Two (2) times a day Duration: 14 Days Unchanged hydrocortisone topical (Hydrocortisone 1% cream) 1 application Topical Two (2) times a day Atopic dermatitis Unchanged levothyroxine (levothyroxine 75 mcg (0.075 mg) oral tablet) 1 tab(s) by mouth Once a day Unchanged levothyroxine (levothyroxine 88 mcg (0.088 mg) oral tablet) 1 tab(s) by mouth Once a day Unchanged loratadine (Claritin 10 mg oral tablet) 1 tab(s) by mouth Once a day Duration: 7 Days Unchanged naproxen (naproxen 500 mg oral tablet) take 1 tablet by mouth twice a day Unchanged norethindrone (Celestina 0.35 mg oral tablet) 1 tab(s) by mouth Once a day Unchanged sertraline 100 Milligram by mouth Once a day Please take this list to your next doctor s visit. Bring all medications you take, including over the counter medications, herbals and other supplements with you to your doctor s visit. Patients and families are reminded to discard old lists and to update any records with all medication providers or retail pharmacies. Education Materials Upper Extremity Contusion You have a contusion (bruise) of an upper extremity (arm, wrist, hand, or fingers). Symptoms include pain, swelling, and skin discoloration. No bones are broken. This injury may take from a few days to a few weeks to heal. During that time, the bruise may change from reddish in color, to purple-blue, to green-yellow, to yellow-brown. Home care Unless another medicine was prescribed, you can take acetaminophen, ibuprofen, or naproxen to control pain. (If you have chronic liver or kidney disease or ever had a stomach ulcer or gastrointestinal bleeding, talk with your doctor before using these medicines.) Elevate the injured area to reduce pain and swelling. As much as possible, sit or lie down with the injured area raised about the level of your heart. This is especially important during the first 48 hours. Ice the injured area to help reduce pain and swelling. Wrap a cold source (ice pack or ice cubes in a plastic bag) in a thin towel. Apply to the bruised area for 20 minutes every 1 to 2 hours the first day. Continue this 3 to 4 times a day until the pain and swelling goes away. If a sling was provided, you may remove it to shower or bathe. To prevent joint stiffness, do not wear it for more than 1 week. Follow-up care Follow up with your healthcare provide, or as advised. Call if you are not improving within the next 1 to 2 weeks. When to seek medical advice Call your healthcare provider right away if any of these occur: Increased pain or swelling Hand or fingers become cold, blue, numb or tingly Signs of infection: Warmth, drainage, or increased redness or pain around the injury Inability to move the injured body part Frequent bruising for unknown reasons [id number] [employer]. [address] [place] [address]. All rights reserved. This information is not intended as a substitute for professional medical care. Always follow your healthcare professional's instructions. Additional Information VACCINATE! IT SAVES LIVES! Members of the community who have not yet received the COVID-19 vaccine and would like to receive it can visit one of [facility] vaccine clinics. There are many vaccine clinic locations within the [facility]. For locations and available times, please visit [email or web address] [email or web address] It is important to note that some COVID mobile vaccine clinics are held outdoors and may be canceled in rainy or stormy conditions. To learn more about pediatric vaccinations (ages 5-11), we invite you to visit the [facility] webpage. [email or web address].[email or web address].org/p ages/2742-Fouof-Btmwidxutta-Freq rjvfgc-Pakzj-Zsbldfknj.html To learn more about the COVID-19 vaccine, we invite you to visit the CDC website for a list of frequently asked questions. https://www.cdc.gov/coronavirus/ 2019-ncov/vaccines/faq.html [facility] Access Instructions: Stay connected with your healthcare team and access your personal medical information anytime with the [facility]. If you would like a full copy of your medical records please contact the [facility] Medical Records Department Wednesday through Wednesday between 8a.m. and 4:30p.m. Please follow the directions below to access the portal: 1.Access the email account you provided upon registration to the [facility].2.Look for an invitation email from [facility].3.Open the email and access the invitation link: Accept Invitation to [employer]4.Fill in the required harrington to create your account. Sign into www.[email or web address] with your username and password that you created in the above steps to stay up to date. You can then view a summary of results, a summary of your visits, and the ability to download your summaries to your computer or send the information securely to a physician. Remember that your healthcare information is confidential, so carefully consider who you will allow to register on the [employer] Patient Portal for access to your information. You can also access the [employer] Patient Portal on the [employer]. Simply click on Health Records under [employer] and then click on the [facility] logo. HOW TO SAFELY DISPOSE OF PRESCRIPTION MEDICATIONS Please use one of the following methods to safely dispose of your unused medications. 1.Use a drug disposal kit: the drug disposal pouch allows you to safely discard your old and unused drugs. Ask your nurse to give you one when you are discharged.2.Visit a local take-back location: Many local pharmacies and police departments have programs that collect old and unwanted prescription drugs. Call your local pharmacy or go to http://[employer]asso.[employer]/8T1Uo9q to find one close to you.3.Make use of household items: Use cat litter or old coffee grounds to dispose medications if other options are not available. Mix your drugs with these household products, seal them in an airtight container and throw it into the garbage. Call [facility]: [phone] to be sure your drugs can be disposed of in this way. Some medicines may require a different approach.4.Never flush your medications down the toilet. IF YOU HAVE BEEN PRESCRIBED AN OPIOIDS FOR PAIN If you have been prescribed an opioid (such as hydrocodone, oxycodone or morphine), it is critical to understand the possible side effects and risks of opioid pain medications. Even when taken as directed, opioids can have several side effects including: Tolerance, meaning you might need to take more of a medication for the same pain relief. Nausea, vomiting and/or constipation. Sleepiness, dizziness, dry mouth, confusion, depression or itching. Physical dependence, meaning you have withdrawal symptoms when a medication is stopped ? this can develop within a few days. KNOW YOUR RESPONSIBILITIES It is important to know exactly how much and how often to take the opioid pain medications you are prescribed. Never take opioids in higher amounts or more often than prescribed. Do not combine opioids with alcohol or other drugs that cause drowsiness, such as benzodiazepines, also known as benzos, including diazepam and alprazolam, muscle relaxants or sleep aids. Never sell or share prescription opioids. This is illegal. Store opioids in a secure place and out of reach of others (including children, family, friends and visitors). The last page(s) of this document has been signed and retained as a CHART COPY Signatures Patient Education Materials Upper Extremity Contusion Medication Leaflets My discharge plan and instructions have been reviewed and explained to me and I,AIDE LOPEZ M understand my current condition and have read and understand these discharge instructions. I have received a written copy of the plan/instructions. If I have questions, I am aware that I should contact my doctor. 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 HISTORY: ORDERING SYSTEM PROVIDED HISTORY: Reason for Exam: pain FINDINGS: There is no evidence of acute fracture. There is normal alignment. No acute joint abnormality. No focal osseous lesion. No focal soft tissue abnormality. IMPRESSION: No acute osseous abnormality. Interpreted by: Cong Bernardo Preliminary Report By: Cong Bernardo Electronically signed By Cong Bernardo Dictated Date: 08/24/2023 4:51:54 PM Prelim Date: 08/24/2023 4:53:17 PM Sign Date: 08/24/2023 4:53:17 PM Ordering Provider: PRABHU PARKS [facility] 08-20-2023 Note [facility] 08-20-2023 History of Presen t illness Narrative Program_ID:[id number] Access Code: [email or web address] URL: [email or web address] Date: 08-20-2023 Prepared By: Mralon Dasilva Program Notes Exercises - Supine Bridge - 1 x daily - 7 x weekly - 3 - 10 - Clamshell - 1 x daily - 7 x weekly - 4 - 10 - Sidelying Hip Abduction - 1 x daily - 7 x weekly - 4 - 10 - Supine Active Straight Leg Raise - 1 x daily - 7 x weekly - 4 - 10 - Squat with Chair Touch - 1 x daily - 7 x weekly - 4 - 10 Episode Visit Count: 1 Therapist That Will Accept/Oversee The Plan Of Care: Marlon Dasilva PT Start of Care Date: 08/20/23 Onset Date: 05/26/23 Plan of Care Certification Date: 08/20/23 Next Certification Due Date: 09/24/23 Patient Identified by Name and Date of : Yes REHABILITATION AND SPORTS THERAPY PHYSICAL THERAPY EVALUATION PLAN OF CARE: Assessment: Aide Lopez presents with chief complaint of R knee pain that interferes with stair negotiation . Aide Lopez presents with impairments in independence in exercise, strength, and symptom management. Patient did not complete the PROMIS (Patient Reported Outcome Measures Information System). Prognosis for therapy is Fair due to: chronic nature of impairments, clinical presentation, poor historian, limited tolerance to activity, limited support system, multiple co- morbidities, poor understanding of deficits . Aide Lopez will benefit from skilled therapy services to meet the goals established for this plan of care as noted below. Goals for Episode of Care: created on 08/20/23 through 10/01/23 Pt will report a reduction in pain with stair negotiation and walking in 6 weeks or less [place] in home exercise program. Increased strength of RLE to 5/5 for ease of chores, stairs, and transfers Patient Goals: Stop the pain Planned Interventions, Frequency, and Duration: Current Frequency: 1x every other week Duration: 4 weeks Total Number of Visits Planned: 2 Planned Treatment Interventions: Therapeutic exercise (23955), Neuromuscular re-education (69738), Manual therapy (88107), Self-nursing home management (91198), Patient/Family/Caregiver Education PLAN FOR NEXT VISIT: NILE quintero Patient demonstrates good understanding of plan of care and treatment. The above goals and plan of care were discussed and agreed upon by patient/family. SUBJECTIVE: Pain in both knees. Not sure what made the pain flare up. Has a feeling that goes under the foot. Tingling in the leg. EMG testing is negative in the recent past. Recent medicine has increased pts weight. Pt states that everything hurts the knee. Pt's guardian states that Aide will say she has too much pain to work and do chores and that she mainly plays video games and does not do much at home. Patient Goals: Stop the pain Functional Limitations: stair negotiation Prior Level of Function: Independent without limitations Intake Information: Prescription present Previous Treatment: Physical Therapy Pain: Pain Pain Location: Knee - Right PROMIS Scales T-scores: mean of general population = 50. 5 points is clinically meaningfully difference Percentiles provide an indication of how the patient's score ranks in relation to the general population. Higher percentile rankings indicate better function/quality of life. 50th percentile is the average of the general population and indicates half of respondents had a worse score. OBJECTIVE MEASURES WITH LEVEL OF FUNCTION: Knee Observations R Knee Palpation Tenderness: No tenderness noted LE AROM R LE AROM: WNL L LE AROM: WNL LE Flexibility Flexibility: Hip Internal Rotation Flexibility, Hip External Rotation Flexibility R Hip Internal Rotation Flexibility: WNL L Hip Internal Rotation Flexibility: WNL R Hip External Rotation Flexibility: WNL L Hip External Rotation Flexibility: WNL LE Joint Mobility R Patellar Mobility: WNL L Patellar Mobility: WNL LE Strength R LE Strength: Grossly 4/5 (At times pt can generate more pressure but this is inconsistent based on motivation) L LE Strength: Grossly 4/5 Gait Gait Observation: excessive ER with bilat feet during gait Education: Education Learning Preferences: Demonstration, Explanation, Performance, Printed Materials Barriers: None Learning/educational needs: Home exercise program, Plan of Care Education Provided: Yes, see treatment interventions for education provided Education Provided To: Patient, Family Education Mode/Type: Demonstration, Explanation/Discussion, Literature/Printed Materials, Performance Response to Education/Teach Back: States/Identifies, Return Demonstration TREATMENT: PT Treatment Interventions: Therapeutic Exercise Evaluation Therapeutic Exercise: 1: Discussed exam findings, purpose of the HEP. HEP handout provided and discussed. 2: *Discussed proper form with SLR, bridge, hip abd, clamshell. Skilled Intervention: Patient was educated in proper exercise technique and purpose for exercises. Billing * Evaluation Low Complexity: 1 Unit Therapeutic Exercise Treatment Minutes: 10 Skilled Treatment Time Minutes (timed and untimed codes): 39 Total Session Time (minutes): 39 Session Start Time : 1303 Session Stop Time : 1342 Marlon Dasilva PT documented in this encounter [facility] 08-17-2023 Note HNO ID: [id number] Author: Ingrid De Dios RT(R) Service: Radiology Author Type: Technologist Type: Progress Notes Filed: 08/17/2023 3:06 PM Note Text: [facility] 08-17-2023 Note [facility] 08-13-2023 Note [facility] 08-13-2023 History of Presen t illness Narrative Images from the original note were not included. Subjective HPI HPI Aide Lopez is a 22 year old adult who presents today for CC of fall today, left wrist pain. Has tried otc medication for relief. Symptoms are worsened by rom of wrist. Denies numbness/tingling of left hand. 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 TONSILLECTOMY & ADENOIDECTOMY <AGE 12 04/2010 Dr. Mazariegos TYMPANOSTOMY LOCAL/TOPICAL ANESTHESIA 04/2010 Dr. Mazariegos ALLERGIES Augmentin [Amoxicillin-Pot Clavulanate], Erythromycin, and Ibuprofen MEDICATIONS naproxen (NAPROSYN) 500 mg tablet Take 1 tablet by mouth two times a day with meals. TAKE WITH FOOD ammonium lactate (LAC-HYDRIN) 12 % cream Apply twice a day to keratosis pilaris on arms, legs as needed fluticasone (FLONASE) 50 mcg/actuation nasal spray Use 2 Sprays in each nostril once daily. Rinse mouth after use. levothyroxine (SYNTHROID) 88 mcg tablet Take 1 tablet by mouth daily before breakfast. polyethylene glycol 3350 (MIRALAX) 17 gram/dose powder Take 8.5 g by mouth once daily. Mix with 4 ounces of liquid and allow time to dissolve. (1/2 capful = 8.5 g = approx 2 level teaspoons) lidocaine (LIDODERM) 5 % Apply 1 Patch as directed once daily. to affected area. Remove patch after 12 hours. Norethindrone, Contraceptive, (ORTHO MICRONOR) 0.35 mg tablet Take 1 tablet by mouth once daily. pantoprazole DR (PROTONIX) 20 mg tablet Take 1 tablet by mouth once daily. beginning 48 hours prior to menses and continue for 5 days while taking Naproxen. sertraline (ZOLOFT) 100 mg tablet Take 1 tablet by mouth once daily. acetaminophen (TYLENOL EXTRA STRENGTH) 500 mg tablet Take 1 tablet by mouth every 8 hours as needed for pain. acetaminophen (TYLENOL) 500 mg tablet Take 2 tablets by mouth every 8 hours as needed for pain. lidocaine (LIDOCAINE PAIN RELIEF) 4 % patch Apply 1 application as directed every 12 hours as needed. CPAP Please fit patient for new mask as well as instruct patient on machine sewer. lidocaine (LIDOCAINE PAIN RELIEF) 4 % patch Apply 1 Patch as directed once daily. lidocaine (LIDODERM) 5 % Apply 1 Patch as directed every 12 hours. Remove old patch prior to placing new patch. Location: left wrist. Cholecalciferol, Vitamin D3, (VITAMIN D-3) 25 mcg (1,000 unit) chew Take 1 tablet by mouth once daily. FAMILY HISTORY Problem Relation Age of Onset Asthma Mother other (hearing problem) Mother Heart Father other (paralyzed due to accident) Sister Asthma Maternal Uncle Emphysema Maternal Grandmother Asthma Maternal Grandmother Heart Paternal Grandmother Social History Tobacco Use Smoking status: Never Smokeless tobacco: Never Vaping Use Vaping Use: Never used Substance Use Topics Alcohol use: No Drug use: No ROS Objective Blood pressure 123/75, pulse 99, temperature 36.7 C (98.1 F), temperature source Tympanic, resp. rate 18, weight 121.5 kg (267 lb 12.8 oz), last menstrual period 07/06/2023, SpO2 96 %. Physical Exam Constitutional: General: Aide Lopez is not in acute distress. Appearance: Aide Lopez is not toxic-appearing or diaphoretic. HENT: Head: Normocephalic and atraumatic. Pulmonary: Effort: Pulmonary effort is normal. No accessory muscle usage or respiratory distress. Musculoskeletal: Arms: Neurological: Mental Status: Aide Lopez is alert and oriented to person, place, and time. ASSESSMENT/PLAN: 1. Injury of left wrist, initial encounter - ICD9: 959.3, ICD10: S69.92XA No xray at time of exam Brace applied Pain relief discussed F/u tomorrow for xray, call results. - XR WRIST GENERAL 3V PA/LAT/OBL LEFT Ernesto Mckinney APRN.FIELD GEOLOGIST documented in this encounter [facility] 08-06-2023 Note [facility] 08-06-2023 Note [facility] 08-05-2023 Miscellaneous Notes ----- Message from Kajal Olson sent at 08/05/2023 10:39 AM EST ----- Regarding: Orthopedics / Open Wrist: Pain / Recent ED Visit Subject Line Format: Orthopedics / [Provider Name or Open & Body Part ] / [Issue] Patient has been identified by name and Date of (Y/N): y Patient: Aide Lopez Date of : 2000 Previous Provider Seen: n/a Body Part(s) Identified: r wrist Diagnosis/Reason For Visit: er follow up- wrist pain and swelling Reason for the call/escalation: er follow up for wrist pain If reason for call/escalation is discharge from ED/ER or Hospital, which facility was the patient seen at: [facility] Was an appointment scheduled (Y/N): n/a Person calling if other than patient: n/a Return call to if other than patient: n/a Best contact number: [phone] Thank you, Kajal Lulabronwynaiden August 05, 2023 10:39 AM documented in this encounter [facility] 07-16-2023 Note [facility] 07-16-2023 History of Presen t illness Narrative Images from the original note were not included. This patient is an established Orthopaedic Surgery patient that is new to my practice. Patient seen at the request of: Al Huerta APRN for the chief complaint mentioned below. A copy of this note will be sent through the emr. History of present illness: Aide Lopez is a 22 year old adult who comes in today with a chief complaint of right knee pain . The pain is located to the anterior aspect and occasional radiation posterior and proximally . This pain has been present for 1 year . This pain occurred with the following preceding injury: knee hyperextension injury . There is pain with stairs. There is pain with squatting. Patient has No swelling. There is not popping/clicking. There is not locking. There is giving way. There is night pain. Prior treatment: physical therapy . Occupation/School: out of school, lives at home Recreational sports/Hobbies/competitive sports: none Physical Examination: This is a well appearing, well nourished patient in no acute distress. Patient's head is normocephalic and atraumatic. Patient has white sclera and pink conjunctiva. Mucous membranes are moist. Patient breathes easily and has normal chest wall excursion. Patient has a Normal. affect. Body habitus obese . Focused exam of the knee: Normal. or Abnormal. gait. Knee alignment: valgus Hindfoot alignment: normal. Generalized ligamentous laxity: Yes. Range of motion is -2-130 degrees . There is pain with patellofemoral compression. There is pain along medial and lateral facets. normal lateral retinaculum. Fat pad: Nontender. There is Apprehension. Tibial tuberosity position: midline. No effusion effusion. There is not quadriceps atrophy. There is not patellofemoral crepitance. There is medial joint line pain on palpation. There is lateral joint line pain on palpation. Mai's negative . Posterior drawer negative . Sharon's negative. The extremity is warm and well perfused. Sensation is grossly intact. Contralateral knee exam: Examination of the contralateral knee reveals that there is normal stability, strength, on palpation. Knee ROM -5-130 and symmetric with contralateral side. There is no significant effusion. Sensation grossly intact. Ipsilateral hip exam: Mild pain with end range of hip range of motion and log roll . Normal stability. Negative straight leg raise. Imaging: Plain films from [facility] are personally reviewed by me and demonstrate no acute osseus abnormality of the right knee of bilateral hips/ pelvis. Impression: Aide Lopez is a 22 year old adult with right knee patellofemoral pain and patellar instability . Discussed negative knee and hip xrays. Discussed re-visiting therapy for patellofemoral pain and to increase strength so she can increase her activities. Plan: 1. Return to clinic as needed 2. Physical therapy recommendation: order placed 3. Pharmacologic treatment: None 4. Bracing: alice-pull knee brace provided Rocio Hollingsworth MD Attending Attestation: I have seen and evaluated this patient. I agree with the impression and plan of care as outlined in the Resident's note. Knee pain. I wonder if there is a component of patellofemoral instability vs malalignment. Linda Recinos MD FAO Orthopaedic Surgery and Sports Medicine [facility] Sports Medicine ore crusher [facility] [employer] Mechanical Designer, Orthopaedic Sports Medicine Fellowship [facility] Orthopaedic and Rheumatologic [place] documented in this encounter [facility] 07-07-2023 Note [facility] 07-07-2023 History of Presen t illness Narrative This is a 22 year old adult who presents today with: Patient presents with: Physical HISTORY OF PRESENT ILLNESS: Aide Lopez is a 22 year old adult. Patient presents with: Physical Wellness Exam Diet: Pt reports eating well balanced diet, pt reports she needs to drink more water Exercise: Pt does not get regular exercise due to possible nerve damage in legs per pt Vision: Gets yearly exams Dental: Is due for routine exams Sleep: Gets about 6 or 7 hours of sleep a night, has not been using CPAP due to being in storage due to moving Mood: denies SI/HI Thyroid: Taking Synthroid 88mcg daily. Denies any difficulty swallowing, palpitations, or cold/heat intolerances. Defiant disorder: Taking Zoloft 100 mg daily, guardian doesn't feel it is helping much but will discuss with counselor. Following with psychiatry. 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 TONSILLECTOMY & ADENOIDECTOMY <AGE 12 04/2010 Dr. Mazariegos TYMPANOSTOMY LOCAL/TOPICAL ANESTHESIA 04/2010 Dr. Mazariegos ALLERGIES Augmentin [Amoxicillin-Pot Clavulanate], Erythromycin, and Ibuprofen MEDICATIONS Current Outpatient Medications Medication Sig nystatin-triamcinolone (MYCOLOG) ointment Apply sparingly to perineum twice daily for irritation/infection. naproxen (NAPROSYN) 500 mg tablet Take 500 mg by mouth twice daily with meals. (Patient not taking: Reported on 05/03/2023) polyethylene glycol 3350 (MIRALAX) 17 gram/dose powder Take 8.5 g by mouth once daily. Mix with 4 ounces of liquid and allow time to dissolve. (1/2 capful = 8.5 g = approx 2 level teaspoons) Cholecalciferol, Vitamin D3, (VITAMIN D-3) 25 mcg (1,000 unit) chew Take 1 tablet by mouth once daily. triamcinolone (KENALOG) 0.025 % cream Apply 1 application to affected area twice daily. ammonium lactate (LAC-HYDRIN) 12 % cream Apply twice a day to keratosis pilaris on arms, legs as needed nystatin (MYCOSTATIN) powder Apply 1 application to affected area four times daily. lidocaine (LIDODERM) 5 % Apply 1 Patch as directed once daily. to affected area. Remove patch after 12 hours. nystatin (MYCOSTATIN) powder Apply 1 application to affected area four times daily. fluticasone (FLONASE) 50 mcg/actuation nasal spray Use 2 Sprays in each nostril once daily. Rinse mouth after use. naproxen (NAPROSYN) 500 mg tablet Take 1 tablet by mouth every 12 hours. Take every 12 hours beginning 48 hours prior to menses and continue for 5 days. TAKE WITH FOOD. Norethindrone, Contraceptive, (ORTHO MICRONOR) 0.35 mg tablet Take 1 tablet by mouth once daily. pantoprazole DR (PROTONIX) 20 mg tablet Take 1 tablet by mouth once daily. beginning 48 hours prior to menses and continue for 5 days while taking Naproxen. sertraline (ZOLOFT) 100 mg tablet Take 1 tablet by mouth once daily. levothyroxine (SYNTHROID) 88 mcg tablet Take 1 tablet by mouth daily before breakfast. acetaminophen (TYLENOL EXTRA STRENGTH) 500 mg tablet Take 1 tablet by mouth every 8 hours as needed for pain. acetaminophen (TYLENOL) 500 mg tablet Take 2 tablets by mouth every 8 hours as needed for pain. lidocaine (LIDOCAINE PAIN RELIEF) 4 % patch Apply 1 application as directed every 12 hours as needed. CPAP Please fit patient for new mask as well as instruct patient on machine sewer. lidocaine (LIDOCAINE PAIN RELIEF) 4 % patch Apply 1 Patch as directed once daily. lidocaine (LIDODERM) 5 % Apply 1 Patch as directed every 12 hours. Remove old patch prior to placing new patch. Location: left wrist. No current facility-administered medications for this visit. FAMILY HISTORY Problem Relation Age of Onset Asthma Mother other (hearing problem) Mother Heart Father other (paralyzed due to accident) Sister Asthma Maternal Uncle Emphysema Maternal Grandmother Asthma Maternal Grandmother Heart Paternal Grandmother Social History Tobacco Use Smoking status: Never Smokeless tobacco: Never Vaping Use Vaping Use: Never used Substance Use Topics Alcohol use: No Drug use: No REVIEW OF SYSTEMS GENERAL: No weight loss, malaise or fevers/chills HEENT: Negative for frequent or significant headaches, No changes in hearing or vision. Tms pearly eid NECK: Negative for lumps, goiter, pain and significant neck swelling RESPIRATORY: Negative for cough, hemoptysis, wheezing, dyspnea or shortness of breath CARDIOVASCULAR: Negative for chest pain, leg swelling, orthopnea, or palpitations GI: No nausea, vomiting, or diarrhea/constipation. No hematochezia/melena. No heartburn or reflux symptoms. : No history of dysuria, frequency or incontinence MUSCULOSKELETAL: Negative for joint pain or swelling. SKIN: Negative for lesions, rash, and itching ENDOCRINE: Negative for cold or heat intolerance, polyuria, polydipsia and goiter NEURO: No history of headaches, syncope, paralysis, seizures or tremors MOOD: Negative for depression, anxiety, or suicidal ideation. EXAM: BP 126/80 Pulse 90 Resp 16 Ht 164.5 cm (5' 4.76 ) Wt 121.6 kg (268 lb) LMP 06/08/2023 (Approximate) SpO2 96% BMI 44.92 kg/m PHYSICAL EXAM: General Appearance: Well appearing, alert, in no acute distress, well-hydrated, well nourished.. Skin: Skin color, texture, turgor normal, no suspicious rashes or lesions. Head: Normocephalic, no masses, lesions, tenderness or abnormalities. Eyes: Anicteric sclera. Pupils are equally round and reactive to light. Extraocular movements are intact. . Ears: External ears normal, canals clear. Neck: Supple, no adenopathy; thyroid symmetric, normal size, no bruits. Lungs: Lungs clear to auscultation. No wheezing, rhonchi, rales.. Heart: RRR without murmur, gallop, or rubs. No ectopy. Neurologic: Gait normal. Reflexes normal and symmetric. Sensation grossly intact.. ASSESSMENT/PLAN: 1. Wellness examination - ICD9: V70.0, ICD10: Z00.00 (primary diagnosis) - Counseled on healthy diet and regular exercise - Get fasting labs completed 2. Vaginal yeast infection - ICD9: 112.1, ICD10: B37.31 - Pt instructed to take Diflucan, repeat in 3 days as needed - FLUCONAZOLE 150 MG TABLET 3. Otalgia of both ears - ICD9: 388.70, ICD10: H92.03 - Stable, refill provided - FLUTICASONE PROPIONATE 50 MCG/ACTUATION NASAL SPRAY,SUSPENSION 4. Primary dysmenorrhea - ICD9: 625.3, ICD10: N94.4 - Stable, refill provided - NAPROXEN 500 MG TABLET 5. Menorrhagia with regular cycle - ICD9: 626.2, ICD10: N92.0 - Same plan as #4 6. Acquired hypothyroidism - ICD9: 244.9, ICD10: E03.9 - Instructed patient on importance of taking on an empty stomach either first thing in the morning or at bedtime. - Placed order for labs, will follow up pending results - LEVOTHYROXINE 88 MCG TABLET - TSH BLD 7. Rash - ICD9: 782.1, ICD10: R21 - Refill provided - AMMONIUM LACTATE 12 % TOPICAL CREAM 8. Screening for diabetes mellitus - ICD9: V77.1, ICD10: Z13.1 - Placed order for labs, will follow up pending results - COMP METABOLIC PANEL - HGB A1C 9. Screening for lipid disorders - ICD9: V77.91, ICD10: Z13.220 - Placed order for labs, will follow up pending results - LIPID PANEL BASIC 10. Encounter for immunization - ICD9: V03.89, ICD10: Z23 - VIS provided - INFLUENZA VACCINE, AGE 6 MO - 64 YR, QUADRIVALENT (AFLURIA, FLULAVAL, FLUZONE) Discussed treatment plan and patient voices understanding. Patient's questions answered appropriately. Medications and potential side effects were discussed and patient voices understanding. Mamta Saez APRN.CNP This note was partially generated using Chrom[employer] voice recognition system. Note was reviewed for accuracy. There may be minor misspellings or grammar miscues with [employer] voice recognition. documented in this encounter [facility] 07-07-2023 Instructions Mamta Saez APRN.CNP - 07/07/2023 4:36 PM EDT Get follow up labs in the next week or so Keep follow up appointment with psychiatry Try to get about 64 ounces of water a day Try to eat a well balanced diet with plenty of fruits and vegetables Take Diflucan for vaginal discomfort, if no improvement may repeat in 3 days. Flu vaccine provided Follow up in 1 year for wellness exam or sooner pending labs result Health Promotion: - Eat healthy -- go to ChooseMyPlate.gov to get started - Have a yearly physical - Get at least 30 minutes of physical activity daily - Get at least 7 to 8 hours of sleep each night - Reach and maintain a healthy weight - Get help to quit or don't start smoking - Limit alcohol use to one drink or less - Do not use illegal drugs or misuse prescription drugs - Wear a helmet when riding a bike and wear protective gear for sports - Wear a seatbelt in cars and not text and drive - Wear sunscreen documented in this encounter [facility] 07-07-2023 Miscellaneous Notes Left vm message for patient, to schedule an appointment. Heidy García July 07, 2023 1:02 PM Left vm message for patient, follow up to a staff message she left on 07/02, desiring treatement of her left leg. Schedule with Dr. Renteria or Dr. Richardson. Heidy García July 06, 2023 8:20 AM Left vm message for patient, to schedule with Dr. Renteria or Dr. Richardson. Treatment of left leg desired. Heidy García July 05, 2023 9:28 AM ----- Message from Adeel Harris sent at 07/02/2023 12:59 PM EDT ----- Regarding: Orthopedics / Lon Leg: Pain / Prev Est Looking To Xfer Subject Line Format: Orthopedics / [Provider Name or Open & Body Part ] / [Issue] Patient has been identified by name and Date of (Y/N): y Patient: Aide Lopez Date of : 2000 Previous Provider Seen: Milan Forrest (DO) Body Part(s) Identified: left leg Diagnosis/Reason For Visit: pain Reason for the call/escalation: Pt called in to schedule an appointment with orthopedics for left leg concern. Pt stated they had seen Dr Forrest in the past but would like to see another provider moving forward, per tool pt could not be scheduled for appointment at this time, review of request is required prior to scheduling. If reason for call/escalation is discharge from ED/ER or Hospital, which facility was the patient seen at: n Was an appointment scheduled (Y/N): n Person calling if other than patient: self Return call to if other than patient: n Best contact number: [phone] Thank you, Adeel Cruz'Brien July 02, 2023 12:59 PM documented in this encounter [facility] 06-23-2023 Note HNO ID: [id number] Author: Luis Angel Beckman, Service: ? Author Type: Physician Type: Procedures Filed: 06/23/2023 1:24 PM Note Text: Patient Name: Aide Lopez Date: June 23, 2023 Patient : 2000 Patient Age: [age] year old CC: Patient presents with: EMG UNIVERSAL PROTOCOL / SAFETY CHECKLIST Procedure to be Performed: B/L LE EMG, referral from Reji Galicia MD Sign In: A Moment of CARE was completed. Personnel directly involved with the procedure wore the appropriate PPE (Personal Protective Equipment). Patient/Surrogate Stated/Verified: PATIENT VERIFIED(optional for EMERGENT procedures): Patient name, Date of , Relevant allergies and The intended procedure Time Out Communication: Consent documented and matches the intended procedure. Sign Out: SIGN OUT (optional for EMERGENT procedures): No specimen collected. Patient is aware of potential risks and benefits of this procedure. Patient wishes to proceed. Electrodiagnostic testing was performed today was a normal study of the bilateral lower extremities. Full report and data will be scanned into the chart. Luis Angel Beckman DO [facility] 06-22-2023 Note HNO ID: [id number] Author: Milan Forrest DO Service: ? Author Type: Physician Type: Progress Notes Filed: 06/22/2023 5:46 PM Note Text: HPI: Aide Lopez presented to Orthopedic office for right knee pain/swelling Seen in ER 9/8/23 Admits disagreement with grandfather and fell on stairs Thinks knee might have gotten twisted Seen at [facility] No xrays of knee just on exam was told possible fluid on knee Thinks possible still fluid on knee and increased pain at times Pain at rest 9/10 At times pain is up to 10/10 especially with walking weight bearing and up stairs ROM-- mild stiffness and increased pain with flexion more than extension Strength-- no new focal weakness Hx of knee pain in past In PT this year for right knee and Has tried heat, ice, nsaids Hx of remote fracture right proximal tibia seen on imaging in spring 2022 PAST MEDICAL HISTORY Diagnosis Date ADHD (attention deficit hyperactivity disorder) 10/30/2010 initial dx by developmentalist 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 TONSILLECTOMY AND ADENOIDECTOMY Dr. Mazariegos TYMPANOSTOMY LOCAL/TOPICAL ANESTHESIA 04/2010 Dr. Mazariegos Social History Tobacco Use Smoking status: Never Smokeless tobacco: Never Vaping Use Vaping Use: Never used Substance Use Topics Alcohol use: No Drug use: No Current Outpatient Medications Medication Sig nystatin-triamcinolone (MYCOLOG) ointment Apply sparingly to perineum twice daily for irritation/infection. polyethylene glycol 3350 (MIRALAX) 17 gram/dose powder Take 8.5 g by mouth once daily. Mix with 4 ounces of liquid and allow time to dissolve. (1/2 capful = 8.5 g = approx 2 level teaspoons) triamcinolone (KENALOG) 0.025 % cream Apply 1 application to affected area twice daily. ammonium lactate (LAC-HYDRIN) 12 % cream Apply twice a day to keratosis pilaris on arms, legs as needed nystatin (MYCOSTATIN) powder Apply 1 application to affected area four times daily. lidocaine (LIDODERM) 5 % Apply 1 Patch as directed once daily. to affected area. Remove patch after 12 hours. nystatin (MYCOSTATIN) powder Apply 1 application to affected area four times daily. fluticasone (FLONASE) 50 mcg/actuation nasal spray Use 2 Sprays in each nostril once daily. Rinse mouth after use. naproxen (NAPROSYN) 500 mg tablet Take 1 tablet by mouth every 12 hours. Take every 12 hours beginning 48 hours prior to menses and continue for 5 days. TAKE WITH FOOD. Norethindrone, Contraceptive, (ORTHO MICRONOR) 0.35 mg tablet Take 1 tablet by mouth once daily. pantoprazole DR (PROTONIX) 20 mg tablet Take 1 tablet by mouth once daily. beginning 48 hours prior to menses and continue for 5 days while taking Naproxen. sertraline (ZOLOFT) 100 mg tablet Take 1 tablet by mouth once daily. levothyroxine (SYNTHROID) 88 mcg tablet Take 1 tablet by mouth daily before breakfast. acetaminophen (TYLENOL EXTRA STRENGTH) 500 mg tablet Take 1 tablet by mouth every 8 hours as needed for pain. acetaminophen (TYLENOL) 500 mg tablet Take 2 tablets by mouth every 8 hours as needed for pain. lidocaine (LIDOCAINE PAIN RELIEF) 4 % patch Apply 1 application as directed every 12 hours as needed. CPAP Please fit patient for new mask as well as instruct patient on machine sewer. lidocaine (LIDOCAINE PAIN RELIEF) 4 % patch Apply 1 Patch as directed once daily. lidocaine (LIDODERM) 5 % Apply 1 Patch as directed every 12 hours. Remove old patch prior to placing new patch. Location: left wrist. naproxen (NAPROSYN) 500 mg tablet Take 500 mg by mouth twice daily with meals. (Patient not taking: Reported on 05/03/2023) Cholecalciferol, Vitamin D3, (VITAMIN D-3) 25 mcg (1,000 unit) chew Take 1 tablet by mouth once daily. No current facility-administered medications for this visit. ALLERGIES Allergen Reactions Augmentin [Amoxicil* Hives Erythromycin Rash Ibuprofen GI Upset Resp 16 Ht 5' 5 (1.65m) Wt 267 lb (121.1kg) LMP 03/27/2023 BMI 44.43 kg/(m2). ROS: I have reviewed and agree with the ROS performed and documented within this office visit EXAM: General: Alert and oriented ?3 uncomfortable at times but in no apparent distress. Gait: Antalgic gait using facility wheel-chair for assistance Head: Normocephalic and atraumatic Psyche: Normal affect, good insight and eye contact, no irritability or inappropriate behavior Skin: Skin condition is healthy without rashes or erythema. Cadiovascular: Normal palpable distal pulses and cap refill Neck: Supple Pulmonary: Non labored breathing and no pursed lips. There is no evidence of cyanosis. Neuro: Ther (more content not included)... [facility] 06-22-2023 Note HNO ID: [id number] Author: Samuel Sexton Tech Service: ? Author Type: Electric Sign Wirer Type: Progress Notes Filed: 06/22/2023 5:46 PM Note Text: Location of pain: right knee, Symptoms started: has had previous upper and lower leg fx. Has giving out and locking sensation, pain with stairs, posterior discomfort and has some numbness/tingling in LE Injury: 12 months BWC: no Seen by Dr Richardson, Dr Renteria or Dr Forrest in past 3 years?: no Pain at rest: 7/10 Pain at times up to : 10/10 Seen for this injury already: ER Previous treatment: 05/21/20 Previous imagin05/21/20 Previous surgery/fracture: no Previous injection: no Additional History related to concern: no [facility] 06-18-2023 Miscellaneous Notes Patient already scheduled to see Dr. Forrest for Right leg. Patient is scheduled to see her on 06/22 @1:30 pm at [facility]. Yinka Fonseca Lavelle Geraldine ----- Message from Sneha Bruno sent at 06/16/2023 12:50 PM EDT ----- Regarding: Orthopedics/Open Leg: Pain/Recent ED Visit Contact: Orthopedics/Open Leg: Pain/Recent ED Visit Patient has been identified by name and Date of (Y/N): y Patient: Aide Lopez Date of : 2000 Previous Provider Seen: n/a Body Part(s) Identified: R leg Diagnosis/Reason For Visit: ED visit 06/04/23 for R leg injury following fall. Said they had a fracture earlier this year Reason for the call/escalation: per sched tool If reason for call/escalation is discharge from ED/ER or Hospital, which facility was the patient seen at: somewhere in [facility] Was an appointment scheduled (Y/N): n Person calling if other than patient: n/a Return call to if other than patient: Prabha Amado (mother) Best contact number: [phone] Thank you, Sneha Bruno June 16, 2023 12:52 PM documented in this encounter [facility] 05-23-2023 Hospital Discharg e instructions Patient Education 05/23/2023 21:04:18 Gastroenteritis, Viral (Adult) Viral Gastroenteritis (Adult) Gastroenteritis is commonly called the stomach flu, although it has nothing to do with influenza. It is most often caused by a virus that affects the stomach and intestinal tract and usually lasts from 2 to 7 days. Common viruses causing gastroenteritis include norovirus, rotavirus, and hepatitis A. Non-viral causes of gastroenteritis include bacteria, parasites, and toxins. The danger from repeated vomiting or diarrhea is dehydration. This is the loss of too much fluid from the body. When this occurs, body fluids must be replaced. Antibiotics don't help with this illness because it is usually viral. Simple home treatment will be helpful. Symptoms of viral gastroenteritis may include: Watery, loose stools Stomach pain or abdominal cramps Fever and chills Nausea and vomiting Loss of bowel control Headache Home care Gastroenteritis is transmitted by contact with the stool or vomit of an infected person. This can occur from person to person or from contact with a contaminated surface. Follow these guidelines when caring for yourself at home: If symptoms are severe, rest at home for the next 24 hours or until you are feeling better. Wash your hands with soap and water or use alcohol-based client service executive to prevent the spread of infection. Wash your hands after touching anyone who is sick. Wash your hands or use alcohol-based client service executive after using the toilet and before meals. Clean the toilet after each use. Remember these tips when preparing food: People with diarrhea should not prepare or serve food to others. When preparing foods, wash your hands before and after. Wash your hands after using cutting boards, countertops, knives, or utensils that have been in contact with raw food. Dry your hands with a single use towel. Keep uncooked meats away from cooked and hitvc-kc-kxd foods. Medicine You may use acetaminophen or NSAID medicines like ibuprofen or naproxen to control fever unless another medicine was given. If you have chronic liver or kidney disease, talk with your healthcare provider before using these medicines. Also talk with your provider if you've had a stomach ulcer or gastrointestinal bleeding. Don't give aspirin to anyone under 18 years of age who is ill with a fever. It may cause severe liver damage. Don't use NSAIDS is you are already taking one for another condition (like arthritis) or are on aspirin (such as for heart disease or after a stroke). If medicine for vomiting or diarrhea are prescribed, take these only as directed. Nausea and diarrhea medicines are generally OK unless you have bleeding, fever, or severe abdominal pain. Diet Follow these guidelines for food: Water and liquids are important so you don't get dehydrated. Drink a small amount at a time or suck on ice chips if you are vomiting. If you eat, avoid fatty, greasy, spicy, or fried foods. Don't eat dairy if you have diarrhea. This can make diarrhea worse. Avoid tobacco, alcohol, and caffeine which may worsen symptoms. During the first 24 hours (the first full day), follow the diet below: Beverages. Sports drinks, soft drinks without caffeine, jose l alphonso, mineral water (plain or flavored), decaffeinated tea and coffee. If you are very dehydrated, sports drinks aren't a good choice. They have too much sugar and not enough electrolytes. In this case, commercially available products called oral rehydration solutions, are best. Soups. Eat clear broth, consomm , and bouillon. Desserts. Eat gelatin, ice pops, and fruit juice bars. During the next 24 hours (the second day), you may add the following to the above: Hot cereal, plain toast, bread, rolls, and crackers Plain noodles, rice, mashed potatoes, chicken noodle or rice soup Unsweetened canned fruit (avoid pineapple), bananas Limit fat intake to less than 15 grams per day. Do this by avoiding margarine, butter, oils, mayonnaise, sauces, gravies, fried foods, peanut butter, meat, poultry, and fish. Limit fiber and avoid raw or cooked vegetables, fresh fruits (except bananas), and bran cereals. Limit caffeine and chocolate. Don't use spices or seasonings other than salt. Limit dairy products. Avoid alcohol. During the next 24 hours: Gradually resume a normal diet as you feel better and your symptoms improve. If at any time it starts getting worse again, go back to clear liquids until you feel better. Follow-up care Follow up with your healthcare provider, or as advised. Call your provider if you don't get better within 24 hours or if diarrhea lasts more than a week. Also follow up if you are unable to keep down liquids and get dehydrated. If a stool (diarrhea) sample was taken, call as directed for the results. Call 911 Call 911 if any of these occur: Trouble breathing Chest pain Confused Severe drowsiness or trouble awakening Fainting or loss of consciousness Rapid heart rate Seizure Stiff neck When to seek medical advice Call your healthcare provider right away if any of these occur: Abdominal pain that gets worse Continued vomiting (unable to keep liquids down) Frequent diarrhea (more than 5 times a day) Blood in vomit or stool (black or red color) Dark urine, reduced urine output, or extreme thirst Weakness or dizziness Drowsiness Fever of 100.4 F (38 C) or higher, or as directed by your healthcare provider Kaleb muñoz [id number] [employer] [place] [address]. All rights reserved. This information is not intended as a substitute for professional medical care. Always follow your healthcare professional's instructions. Follow Up Care 05/23/2023 19:00:11 With:IKER TRUJILLO MD Address: [address] [place] [id number]- When:2-4 days [facility] 05-23-2023 Emergency department Discharge summary Discharge Instructions Thank you for allowing [facility] to assist you with your healthcare needs. The following is important discharge information regarding your hospital visit. Diagnosis from Today's Visit Gastroenteritis Nausea What to Do Next Instructions from Your Care Team No qualifying data available. Post Acute Orders No qualifying data available. You Need to Schedule the Following Appointments Follow Up with IKER TRUJILLO MD When Within 2-4 days Where: [address] [place] [address]- Allergies Augmentin (Ibuprofen) erythromycin ibuprofen Medications Please ask your primary doctor or pharmacist before taking any other medication not listed, including over the counter drugs, herbal medications, vitamins and or supplements as they may interact with your home medications. What How Much When Why Instructions Last Dose Unchanged cholecalciferol (Vitamin D3 25 mcg (1000 intl units) oral capsule) 1 cap by mouth Every day Unchanged dicyclomine (dicyclomine 10 mg oral capsule) 1 cap by mouth Four (4) times a day Duration: 5 Days Unchanged famotidine (Pepcid 40 mg oral tablet) 1 tab(s) by mouth Two (2) times a day Duration: 14 Days Unchanged hydrocortisone topical (Hydrocortisone 1% cream) 1 application Topical Two (2) times a day Atopic dermatitis Unchanged levothyroxine (levothyroxine 75 mcg (0.075 mg) oral tablet) 1 tab(s) by mouth Once a day Unchanged levothyroxine (levothyroxine 88 mcg (0.088 mg) oral tablet) 1 tab(s) by mouth Once a day Unchanged loratadine (Claritin 10 mg oral tablet) 1 tab(s) by mouth Once a day Duration: 7 Days Unchanged naproxen (naproxen 500 mg oral tablet) take 1 tablet by mouth twice a day Unchanged norethindrone (Celestina 0.35 mg oral tablet) 1 tab(s) by mouth Once a day Unchanged sertraline 100 Milligram by mouth Once a day Please take this list to your next doctor s visit. Bring all medications you take, including over the counter medications, herbals and other supplements with you to your doctor s visit. Patients and families are reminded to discard old lists and to update any records with all medication providers or retail pharmacies. Education Materials Viral Gastroenteritis (Adult) Gastroenteritis is commonly called the stomach flu, although it has nothing to do with influenza. It is most often caused by a virus that affects the stomach and intestinal tract and usually lasts from 2 to 7 days. Common viruses causing gastroenteritis include norovirus, rotavirus, and hepatitis A. Non-viral causes of gastroenteritis include bacteria, parasites, and toxins. The danger from repeated vomiting or diarrhea is dehydration. This is the loss of too much fluid from the body. When this occurs, body fluids must be replaced. Antibiotics don't help with this illness because it is usually viral. Simple home treatment will be helpful. Symptoms of viral gastroenteritis may include: Watery, loose stools Stomach pain or abdominal cramps Fever and chills Nausea and vomiting Loss of bowel control Headache Home care Gastroenteritis is transmitted by contact with the stool or vomit of an infected person. This can occur from person to person or from contact with a contaminated surface. Follow these guidelines when caring for yourself at home: If symptoms are severe, rest at home for the next 24 hours or until you are feeling better. Wash your hands with soap and water or use alcohol-based client service executive to prevent the spread of infection. Wash your hands after touching anyone who is sick. Wash your hands or use alcohol-based client service executive after using the toilet and before meals. Clean the toilet after each use. Remember these tips when preparing food: People with diarrhea should not prepare or serve food to others. When preparing foods, wash your hands before and after. Wash your hands after using cutting boards, countertops, knives, or utensils that have been in contact with raw food. Dry your hands with a single use towel. Keep uncooked meats away from cooked and kgjud-tb-jms foods. Medicine You may use acetaminophen or NSAID medicines like ibuprofen or naproxen to control fever unless another medicine was given. If you have chronic liver or kidney disease, talk with your healthcare provider before using these medicines. Also talk with your provider if you've had a stomach ulcer or gastrointestinal bleeding. Don't give aspirin to anyone under 18 years of age who is ill with a fever. It may cause severe liver damage. Don't use NSAIDS is you are already taking one for another condition (like arthritis) or are on aspirin (such as for heart disease or after a stroke). If medicine for vomiting or diarrhea are prescribed, take these only as directed. Nausea and diarrhea medicines are generally OK unless you have bleeding, fever, or severe abdominal pain. Diet Follow these guidelines for food: Water and liquids are important so you don't get dehydrated. Drink a small amount at a time or suck on ice chips if you are vomiting. If you eat, avoid fatty, greasy, spicy, or fried foods. Don't eat dairy if you have diarrhea. This can make diarrhea worse. Avoid tobacco, alcohol, and caffeine which may worsen symptoms. During the first 24 hours (the first full day), follow the diet below: Beverages. Sports drinks, soft drinks without caffeine, jose l alphonso, mineral water (plain or flavored), decaffeinated tea and coffee. If you are very dehydrated, sports drinks aren't a good choice. They have too much sugar and not enough electrolytes. In this case, commercially available products called oral rehydration solutions, are best. Soups. Eat clear broth, consomm , and bouillon. Desserts. Eat gelatin, ice pops, and fruit juice bars. During the next 24 hours (the second day), you may add the following to the above: Hot cereal, plain toast, bread, rolls, and crackers Plain noodles, rice, mashed potatoes, chicken noodle or rice soup Unsweetened canned fruit (avoid pineapple), bananas Limit fat intake to less than 15 grams per day. Do this by avoiding margarine, butter, oils, mayonnaise, sauces, gravies, fried foods, peanut butter, meat, poultry, and fish. Limit fiber and avoid raw or cooked vegetables, fresh fruits (except bananas), and bran cereals. Limit caffeine and chocolate. Don't use spices or seasonings other than salt. Limit dairy products. Avoid alcohol. During the next 24 hours: Gradually resume a normal diet as you feel better and your symptoms improve. If at any time it starts getting worse again, go back to clear liquids until you feel better. Follow-up care Follow up with your healthcare provider, or as advised. Call your provider if you don't get better within 24 hours or if diarrhea lasts more than a week. Also follow up if you are unable to keep down liquids and get dehydrated. If a stool (diarrhea) sample was taken, call as directed for the results. Call 911 Call 911 if any of these occur: Trouble breathing Chest pain Confused Severe drowsiness or trouble awakening Fainting or loss of consciousness Rapid heart rate Seizure Stiff neck When to seek medical advice Call your healthcare provider right away if any of these occur: Abdominal pain that gets worse Continued vomiting (unable to keep liquids down) Frequent diarrhea (more than 5 times a day) Blood in vomit or stool (black or red color) Dark urine, reduced urine output, or extreme thirst Weakness or dizziness Drowsiness Fever of 100.4 F (38 C) or higher, or as directed by your healthcare provider Kaleb muñoz [id number] [employer] [place] [address]. All rights reserved. This information is not intended as a substitute for professional medical care. Always follow your healthcare professional's instructions. Additional Information VACCINATE! IT SAVES LIVES! Members of the community who have not yet received the COVID-19 vaccine and would like to receive it can visit one of [facility] vaccine clinics. There are many vaccine clinic locations within the [facility]. For locations and available times, please visit [email or web address].[email or web address] [email or web address] It is important to note that some COVID mobile vaccine clinics are held outdoors and may be canceled in rainy or stormy conditions. To learn more about pediatric vaccinations (ages 5-11), we invite you to visit the [facility] webpage. [email or web address].[email or web address].org/p ages/9317-Oghwz-Tckngdkuydz-Freq hqnevf-Bzawn-Mpnxxhozm.[email or web address] To learn more about the COVID-19 vaccine, we invite you to visit the CDC website for a list of frequently asked questions. https://www.cdc.gov/coronavirus/ 2019-ncov/vaccines/faq.html [facility] Patient Portal Access Instructions: Stay connected with your healthcare team and access your personal medical information anytime with the [facility] Patient Portal. If you would like a full copy of your medical records please contact the [facility] Medical Records Department Wednesday through Wednesday between 8a.m. and 4:30p.m. Please follow the directions below to access the portal: 1.Access the email account you provided upon registration to the hospital.2.Look for an invitation email from [facility].3.Open the email and access the invitation link: Accept Invitation to [facility]4.Fill in the required harrington to create your account. Sign into [email or web address].[email or web address] with your username and password that you created in the above steps to stay up to date. You can then view a summary of results, a summary of your visits, and the ability to download your summaries to your computer or send the information securely to a physician. Remember that your healthcare information is confidential, so carefully consider who you will allow to register on the [facility] Patient Portal for access to your information. You can also access the [facility] Patient Portal on the Care Team Connect adrianna. Simply click on Health Records under Health Data and then click on the [facility] logo. HOW TO SAFELY DISPOSE OF PRESCRIPTION MEDICATIONS Please use one of the following methods to safely dispose of your unused medications. 1.Use a drug disposal kit: the drug disposal pouch allows you to safely discard your old and unused drugs. Ask your nurse to give you one when you are discharged.2.Visit a local take-back location: Many local pharmacies and police departments have programs that collect old and unwanted prescription drugs. Call your local pharmacy or go to http://Gold Lasso.[employer]/2A8Yw2m to find one close to you.3.Make use of household items: Use cat litter or old coffee grounds to dispose medications if other options are not available. Mix your drugs with these household products, seal them in an airtight container and throw it into the garbage. Call [facility]: [phone] to be sure your drugs can be disposed of in this way. Some medicines may require a different approach.4.Never flush your medications down the toilet. IF YOU HAVE BEEN PRESCRIBED AN OPIOIDS FOR PAIN If you have been prescribed an opioid (such as hydrocodone, oxycodone or morphine), it is critical to understand the possible side effects and risks of opioid pain medications. Even when taken as directed, opioids can have several side effects including: Tolerance, meaning you might need to take more of a medication for the same pain relief. Nausea, vomiting and/or constipation. Sleepiness, dizziness, dry mouth, confusion, depression or itching. Physical dependence, meaning you have withdrawal symptoms when a medication is stopped ? this can develop within a few days. KNOW YOUR RESPONSIBILITIES It is important to know exactly how much and how often to take the opioid pain medications you are prescribed. Never take opioids in higher amounts or more often than prescribed. Do not combine opioids with alcohol or other drugs that cause drowsiness, such as benzodiazepines, also known as benzos, including diazepam and alprazolam, muscle relaxants or sleep aids. Never sell or share prescription opioids. This is illegal. Store opioids in a secure place and out of reach of others (including children, family, friends and visitors). The last page(s) of this document has been signed and retained as a CHART COPY Signatures Patient Education Materials Gastroenteritis, Viral (Adult) Medication Leaflets My discharge plan and instructions have been reviewed and explained to me and IAIDE LOPEZ understand my current condition and have read and understand these discharge instructions. I have received a written copy of the plan/instructions. If I have questions, I am aware that I should contact my doctor. 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 Signature: Date/Time: Relationship to Patient: Witness Name/Signature: Date/Time: [facility] 05-20-2023 Note [facility] 05-20-2023 Miscellaneous Notes Addended by: MARLON DASILVA on: 05/20/2023 04:24 PM Modules accepted: Orders documented in this encounter [facility] 05-20-2023 History of Presen t illness Narrative Episode Visit Count: 1 Therapist That Will Accept/Oversee The Plan Of Care: Marlon Dasilva Start of Care Date: 05/20/23 Onset Date: 05/13/23 Plan of Care Certification Date: 05/20/23 Next Certification Due Date: 06/24/23 Patient Identified by Name and Date of : Yes REHABILITATION AND SPORTS THERAPY PHYSICAL THERAPY EVALUATION PLAN OF CARE: Assessment: Aide Lopez presents with chief complaint of Bilateral heel pain that interferes with stair negotiation, walking . Aide Lopez presents with impairments in ADL's and independence in exercise. Patient did not complete the PROMIS (Patient Reported Outcome Measures Information System). Prognosis for therapy is Fair due to: chronic nature of impairments, clinical presentation, poor historian, limited tolerance to activity, limited support system, multiple co- morbidities, poor understanding of deficits . Inconsistent findings with exam making it difficult to determine source of pain and proper treatment path. Pt states Aide Lopez will benefit from skilled therapy services to meet the goals established for this plan of care as noted below. Goals for Episode of Care: created on 05/20/23 through 07/15/23 Pt will report being able to climb stairs without increased heel pain Perform Pt will be able to walk long distances with 2/10 pain or less Patient Goals: Improve pain Planned Interventions, Frequency, and Duration: Current Frequency: 1x every other week Duration: 4 weeks Total Number of Visits Planned: 2 Planned Treatment Interventions: Therapeutic exercise (18436), Neuromuscular re-education (57412), Manual therapy (74453), Self-nursing home management (36065), Patient/Family/Caregiver Education PLAN FOR NEXT VISIT: Check-up in one month after pt undergoes EMG testing Patient demonstrates good understanding of plan of care and treatment. The above goals and plan of care were discussed and agreed upon by patient/family. SUBJECTIVE: It feels like she cannot lift her ;egs. Pt states she has pain in both of the legs now. Pain in the back of the heel. The pain can run all the way up the side. Patient Goals: Improve pain Functional Limitations: stair negotiation, walking Prior Level of Function: Independent without limitations Intake Information: Prescription present Pain: Pain Pain Location: Heel - Left, Heel - Right PROMIS Scales T-scores: mean of general population = 50. 5 points is clinically meaningfully difference Percentiles provide an indication of how the patient's score ranks in relation to the general population. Higher percentile rankings indicate better function/quality of life. 50th percentile is the average of the general population and indicates half of respondents had a worse score. OBJECTIVE MEASURES WITH LEVEL OF FUNCTION: LE AROM R LE AROM: WNL L LE AROM: WNL R Ankle Dorsiflexion: 19 Degrees L Ankle Dorsiflexion: 20 Degrees LE Strength R LE Strength: Grossly 4/5 L LE Strength: Grossly 4/5 Ankle DF and stretching of achilles bilat does not increase pain Negative SLR bilat Gait Gait Observation: xcessive ER with bilat feet during gait Pt reports numbness in the L4 and L5 and L3 dermatomes with sharp testing Education: Education Learning Preferences: Demonstration, Explanation, Performance, Printed Materials Barriers: None Learning/educational needs: Home exercise program, Plan of Care Education Provided: Yes, see treatment interventions for education provided Education Provided To: Patient Education Mode/Type: Demonstration, Explanation/Discussion, Literature/Printed Materials Response to Education/Teach Back: States/Identifies, Return Demonstration TREATMENT: PT Treatment Interventions: Therapeutic Exercise Evaluation Therapeutic Exercise: 1: Discussed therapy goals, exam findings, purpose of the HEP. Importance of exercising an hour a day discussed as long as it does not cause pain. 2: Ankle pumps x 20 3: Hip marches seated, x 20 4: Ankle circles x 20 Skilled Intervention: Patient was educated in proper exercise technique and purpose for exercises. Correct performance of therapeutic exercises was facilitated with verbal and visual cuing. Billing * Re-Evaluation Complexity: 1 Unit Therapeutic Exercise Treatment Minutes: 13 Total Treatment Time Minutes (timed/untimed): 40 Session Start Time : 1537 Session Stop Time : 1617 Marlon Dasilva PT documented in this encounter [facility] 05-19-2023 Note [facility] 05-19-2023 Instructions Mamta Saez APRN.FIELD GEOLOGIST - 05/19/2023 2:12 PM EDT Viral illness. May use Zofran as needed for nausea, wait about 30 minutes before eating. Stay well hydrated. Eat a bland diet and advance as tolerated. Worsening symptoms go to ER. Good hand hygiene. Follow up as needed. GASTROENTERITIS DESCRIPTION: Irritation and infection of the digestive tract that can often cause sudden and sometimes violent upsets. Gastroenteritis may be confused with spastic colitis. It affects all ages but is most severe in young children (1 to 5 years) and adults over 60. FREQUENT SIGNS AND SYMPTOMS: -Nausea that sometimes causes vomiting. -Diarrhea that ranges from 2 or 3 loose stools to many watery stools. -Abdominal cramps, pain or tenderness. -Appetite loss. -Fever. -Weakness. CAUSES: -A variety of viruses, bacteria or parasites that have contaminated food or water. -Food poisoning. -Use of harsh laxatives. -Change in bacteria that normally live in the intestinal tract. -Chemical toxins in certain plants, seafood, or contaminated food. -Heavy metal poisoning. RISK INCREASES WITH: -Adults over 60. -Newborns and infants. -Improper diet. -Excess alcohol consumption. -Use of drugs, such as aspirin, nonsteroidal anti-inflammatories, antibiotics, laxatives, cortisone or caffeine. -Travel to foreign countries. PREVENTIVE MEASURES: -Wash hands frequently if you or someone around you has gastroenteritis. -Avoid as many causes and risks mentioned above as possible. -Take care with food preparation. TREATMENT: GENERAL MEASURES: -Diagnostic tests may include laboratory studies of blood and stool. -Treatment is usually supportive (rest, fluids). -Mild cases are usually treated at home. -It is not necessary to isolate persons with gastroenteritis. -Hospitalization, if dehydration is severe. MEDICATIONS: -Medicine is usually not necessary. If gastroenteritis is severe or prolonged, you may be prescribed antinausea and antidiarrheal medication. -Certain bacteria and parasites may require specific antibiotic treatment. ACTIVITY: Rest in bed until nausea, vomiting, diarrhea and fever are gone. DIET: -Suck ice chips or drink small amounts of clear fluids frequently. -After diarrhea and vomiting stop, drink small amounts of clear liquids, such as tea, flat jose l alphonso or lemon-igiugig soda, broth and gelatin. -If liquids are tolerated for 12 hours, eat small amounts of soft foods, such as cooked cereal, rice, eggs, custard, baked potato and yogurt. -If soft food is tolerated for 2 - 3 days, gradually return to a normal diet. Avoid alcohol, spicy food (pizza, spaghetti, onions), gravy raw vegetables, raw fruit, salad dressing, cream soup, coffee and milk for several days. NOTIFY OFFICE: -Symptoms of gastroenteritis persist longer than 2 days. -The following occur during treatment: Mucus or blood in the stool. Fever of 101 degrees F (38.3 degrees C) or higher. Abdominal swelling. Severe pain in the abdomen or rectum especially pain that begins in the center and moves to the lower right side. -Vomiting and diarrhea recur after treatment. -Signs of dehydration, such as dry mouth, wrinkled skin, excess thirst or decreased urination, develop. documented in this encounter [facility] 05-19-2023 History of Presen t illness Narrative This is a 22 year old adult who presents today with: Patient presents with: Acute Visit: N/V diarrhea HISTORY OF PRESENT ILLNESS: Aide Lopez is a 22 year old adult. Patient presents with: Acute Visit: N/V diarrhea Here in the office for N/V/DX2 days. Refers that she has nausea and vomiting when she tries to eat or drink. Having about 4-5 episodes per day of diarrhea. No mucus or blood. No fever or chills. Other member of household started to get same symptoms last night. 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 TONSILLECTOMY & ADENOIDECTOMY <AGE 12 04/2010 Dr. Mazariegos TYMPANOSTOMY LOCAL/TOPICAL ANESTHESIA 04/2010 Dr. Mazariegos ALLERGIES Augmentin [Amoxicillin-Pot Clavulanate], Erythromycin, and Ibuprofen MEDICATIONS Current Outpatient Medications Medication Sig nystatin-triamcinolone (MYCOLOG) ointment Apply sparingly to perineum twice daily for irritation/infection. polyethylene glycol 3350 (MIRALAX) 17 gram/dose powder Take 8.5 g by mouth once daily. Mix with 4 ounces of liquid and allow time to dissolve. (1/2 capful = 8.5 g = approx 2 level teaspoons) triamcinolone (KENALOG) 0.025 % cream Apply 1 application to affected area twice daily. ammonium lactate (LAC-HYDRIN) 12 % cream Apply twice a day to keratosis pilaris on arms, legs as needed nystatin (MYCOSTATIN) powder Apply 1 application to affected area four times daily. lidocaine (LIDODERM) 5 % Apply 1 Patch as directed once daily. to affected area. Remove patch after 12 hours. nystatin (MYCOSTATIN) powder Apply 1 application to affected area four times daily. fluticasone (FLONASE) 50 mcg/actuation nasal spray Use 2 Sprays in each nostril once daily. Rinse mouth after use. naproxen (NAPROSYN) 500 mg tablet Take 1 tablet by mouth every 12 hours. Take every 12 hours beginning 48 hours prior to menses and continue for 5 days. TAKE WITH FOOD. Norethindrone, Contraceptive, (ORTHO MICRONOR) 0.35 mg tablet Take 1 tablet by mouth once daily. pantoprazole DR (PROTONIX) 20 mg tablet Take 1 tablet by mouth once daily. beginning 48 hours prior to menses and continue for 5 days while taking Naproxen. sertraline (ZOLOFT) 100 mg tablet Take 1 tablet by mouth once daily. levothyroxine (SYNTHROID) 88 mcg tablet Take 1 tablet by mouth daily before breakfast. acetaminophen (TYLENOL EXTRA STRENGTH) 500 mg tablet Take 1 tablet by mouth every 8 hours as needed for pain. acetaminophen (TYLENOL) 500 mg tablet Take 2 tablets by mouth every 8 hours as needed for pain. lidocaine (LIDOCAINE PAIN RELIEF) 4 % patch Apply 1 application as directed every 12 hours as needed. CPAP Please fit patient for new mask as well as instruct patient on machine sewer. lidocaine (LIDOCAINE PAIN RELIEF) 4 % patch Apply 1 Patch as directed once daily. lidocaine (LIDODERM) 5 % Apply 1 Patch as directed every 12 hours. Remove old patch prior to placing new patch. Location: left wrist. ondansetron (ZOFRAN) 4 mg tablet Take 1 tablet by mouth every 8 hours as needed for nausea/vomiting for up to 10 days. naproxen (NAPROSYN) 500 mg tablet Take 500 mg by mouth twice daily with meals. (Patient not taking: Reported on 05/03/2023) Cholecalciferol, Vitamin D3, (VITAMIN D-3) 25 mcg (1,000 unit) chew Take 1 tablet by mouth once daily. No current facility-administered medications for this visit. FAMILY HISTORY Problem Relation Age of Onset Asthma Mother other (hearing problem) Mother Heart Father other (paralyzed due to accident) Sister Asthma Maternal Uncle Emphysema Maternal Grandmother Asthma Maternal Grandmother Heart Paternal Grandmother Social History Tobacco Use Smoking status: Never Smokeless tobacco: Never Vaping Use Vaping Use: Never used Substance Use Topics Alcohol use: No Drug use: No REVIEW OF SYSTEMS GENERAL: No weight loss, malaise or fevers/chills HEENT: Negative for frequent or significant headaches, No changes in hearing or vision. NECK: Negative for lumps, goiter, pain and significant neck swelling RESPIRATORY: Negative for cough, hemoptysis, wheezing, dyspnea or shortness of breath CARDIOVASCULAR: Negative for chest pain, leg swelling, orthopnea, or palpitations GI: + N/V/D : No history of dysuria, frequency or incontinence MUSCULOSKELETAL: Negative for joint pain or swelling. SKIN: Negative for lesions, rash, and itching ENDOCRINE: Negative for cold or heat intolerance, polyuria, polydipsia and goiter NEURO: No history of headaches, syncope, paralysis, seizures or tremors MOOD: Negative for depression, anxiety, or suicidal ideation. EXAM: BP 130/96 Pulse 81 Resp 16 Wt 121.1 kg (267 lb) LMP 03/27/2023 SpO2 96% BMI 43.76 kg/m PHYSICAL EXAM: General Appearance: Well appearing, alert, in no acute distress, well-hydrated, well nourished.. Skin: Skin color, texture, turgor normal, no suspicious rashes or lesions. Head: Normocephalic, no masses, lesions, tenderness or abnormalities. Eyes: Anicteric sclera. Extraocular movements are intact. Lungs: Lungs clear to auscultation. No wheezing, rhonchi, rales.. Heart: RRR without murmur, gallop, or rubs. No ectopy. Abdomen: Normal abdominal exam, Abdomen soft, Bowel sounds normal. No masses, organomegaly, Negative CVA tenderness.+ mild epigastric tenderness, negative gusman's sign. Musculoskeletal: No joint swelling, deformity, or tenderness. Peripheral Pulses: Normal, Capillary refill <2secs, strong peripheral pulses, Pulses palpable. Neurologic: Gait normal. Reflexes normal and symmetric. Sensation grossly intact. ASSESSMENT/PLAN: 1. 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 - Continue supportive care at home. - Eat a bland diet, advance as tolerated. - Stay well-hydrated, good hand hygiene. - Red flag symptoms given to patient, she verbalizes understanding when to seek care. 2. Nausea - ICD9: 787.02, ICD10: R11.0 - May use zofran as needed. - ONDANSETRON HCL 4 MG TABLET Follow up if no improvement. Discussed treatment plan and patient voices understanding. Patient's questions answered appropriately. Medications and potential side effects were discussed and patient voices understanding. Mamta Saez APRN.COOPER This note was partially generated using [employer] voice recognition system. Note was reviewed for accuracy. There may be minor misspellings or grammar miscues with Dragon voice recognition. documented in this encounter [facility] 05-11-2023 Note [facility] 05-11-2023 Note HNO ID: [id number] Author: Raissa Mooney RN Service: ? Author Type: ? Type: Progress Notes Filed: 05/13/2023 7:49 AM Note Text: Patient presents with: Right Great Toe - Follow Up, Nail Check Patient is with her legal guardian Prabha Amado. [facility] 05-11-2023 Instructions Sruthi Lilly - 05/11/2023 4:05 PM EDT Recommend wearing lace up tennis shoe, ie asics, new balance or hoka or alvarado. Avoid sandals or crocks or hey dudes Wear heel lift to both shoes Ice ankle x 10 minutes twice daily. Recommend topical antibotic cream to left leg Stop picking at scabs documented in this encounter [facility] 05-11-2023 History of Presen t illness Narrative FOLLOW UP PODIATRIC OFFICE VISIT Chief Complaint: This 22 year old who presents for evalation of left great toe. Patient presents to clinic for follow-up left ankle pain. Patient has on/off ankle pain She was last seen one week ago and her left lateral ankle sprain was improved. She now is complaining of left achilles tendon pain She denies any recent injury PAIN EVALUATION No data found in the last 1 encounters. Hemoglobin A1C Date Value Ref Range Status 08/13/2022 5.6 4.3 - 5.6 % Final Comment: Citizen Of [place] Diabetes Association guidelines indicate that patients with HgbA1c in the range 5.7-6.4% are at increased risk for development of diabetes, and intervention by lifestyle modification may be beneficial. HgbA1c greater or equal to 6.5% is considered diagnostic of diabetes. 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 polyethylene glycol 3350 (MIRALAX) 17 gram/dose powder Take 8.5 g by mouth once daily. Mix with 4 ounces of liquid and allow time to dissolve. (1/2 capful = 8.5 g = approx 2 level teaspoons) triamcinolone (KENALOG) 0.025 % cream Apply 1 application to affected area twice daily. ammonium lactate (LAC-HYDRIN) 12 % cream Apply twice a day to keratosis pilaris on arms, legs as needed nystatin (MYCOSTATIN) powder Apply 1 application to affected area four times daily. lidocaine (LIDODERM) 5 % Apply 1 Patch as directed once daily. to affected area. Remove patch after 12 hours. nystatin (MYCOSTATIN) powder Apply 1 application to affected area four times daily. fluticasone (FLONASE) 50 mcg/actuation nasal spray Use 2 Sprays in each nostril once daily. Rinse mouth after use. naproxen (NAPROSYN) 500 mg tablet Take 1 tablet by mouth every 12 hours. Take every 12 hours beginning 48 hours prior to menses and continue for 5 days. TAKE WITH FOOD. Norethindrone, Contraceptive, (ORTHO MICRONOR) 0.35 mg tablet Take 1 tablet by mouth once daily. pantoprazole DR (PROTONIX) 20 mg tablet Take 1 tablet by mouth once daily. beginning 48 hours prior to menses and continue for 5 days while taking Naproxen. sertraline (ZOLOFT) 100 mg tablet Take 1 tablet by mouth once daily. levothyroxine (SYNTHROID) 88 mcg tablet Take 1 tablet by mouth daily before breakfast. acetaminophen (TYLENOL EXTRA STRENGTH) 500 mg tablet Take 1 tablet by mouth every 8 hours as needed for pain. acetaminophen (TYLENOL) 500 mg tablet Take 2 tablets by mouth every 8 hours as needed for pain. lidocaine (LIDOCAINE PAIN RELIEF) 4 % patch Apply 1 application as directed every 12 hours as needed. CPAP Please fit patient for new mask as well as instruct patient on machine sewer. lidocaine (LIDOCAINE PAIN RELIEF) 4 % patch Apply 1 Patch as directed once daily. lidocaine (LIDODERM) 5 % Apply 1 Patch as directed every 12 hours. Remove old patch prior to placing new patch. Location: left wrist. naproxen (NAPROSYN) 500 mg tablet Take 500 mg by mouth twice daily with meals. (Patient not taking: Reported on 05/03/2023) Cholecalciferol, Vitamin D3, (VITAMIN D-3) 25 mcg (1,000 unit) chew Take 1 tablet by mouth once daily. Current Facility-Administered Medications Medication Dose Route Frequency perflutren lipid microspheres 1.3 mL in NaCl (PF) 0.9% 10 mL injection (DEFINITY) INTRAVENOUS DIRECTED PRN sodium chloride 0.9 % (flush) 10 mL (BD POSIFLUSH) 10 mL INTRAVENOUS DIRECTED PRN ALLERGIES Allergen Reactions Augmentin [Amoxicil* Hives Erythromycin Rash Ibuprofen GI Upset PAST SURGICAL HISTORY Procedure Laterality Date PAST SURGICAL HISTORY OF right eye surgery unsure what for. TONSILLECTOMY & ADENOIDECTOMY <AGE 12 04/2010 Dr. Mazarieogs TYMPANOSTOMY LOCAL/TOPICAL ANESTHESIA 04/2010 Dr. Mazariegos Physical Exam: OBJECTIVE: Constitutional: Pt is a well developed 22 year old adult who is alert, oriented, cooperative and in no apparent distress. Eyes: Following during examination. No redness or drainage. Respiratory: RR normal and nonlabored. Even breathing. No evidence of distress. Psychology: Patient is engaged during conversation. Normal affect and mood. Does not appear depressed or anxious. NVSI unchanged from previous visit. Dermatological: Nails 1-5 b/l are normal. Webspaces clean and dry 1-4 b/l. Skin appears well hydrated and supple. good color, texture, turgor. No open lesions present. No callosities present. Musculoskeletal/Orthopaedic: Patient has pain to palpation of left achilles tendon De Dios test produces plantarflexion b/l No palpable achilles tendon rupture is detected clinically. ASSESSMENT: (M76.62) Tendonitis, Achilles, left (primary encounter diagnosis) PLAN: Discussed pain in left achilles. This is new without any history of injury. Prior ankle pain along lateral ankle sprain has resolved. I am going to have patient continue with therapy until pain resolved. Call if any issues arise Does have abrasion of left lateral leg that may be made worsened from patient picking. Recommend she avoid picking the scab. Continue with topical antibiotic cream Sruthi Lilly DPM Patient presents with: Right Great Toe - Follow Up, Nail Check Patient is with her legal guardian Prabha Amado. documented in this encounter [facility] 05-03-2023 Note [facility] 05-03-2023 Note [facility] 05-03-2023 Note HNO ID: [id number] Author: Elisabeth Patterson RN Service: ? Author Type: Registered Nurse Type: Progress Notes Filed: 05/04/2023 7:28 AM Note Text: Patient presents with: Right Foot - Established Patient: Growth on bottom of foot [facility] 05-03-2023 History of Presen t illness Narrative FOLLOW UP PODIATRIC OFFICE VISIT Chief Complaint: This 22 year old who presents growth on plantar aspect of right foot Patient presents to clinic for evaluation of right foot. She first noticed growth on the plantar aspect of right foot. She does report some pain with walking She also complains of corns to the right foot Patient also has left ankle sprain that she states is improving with rehab. PAIN EVALUATION 05/03/2023 1412 Pain Level: 8 Pain Location: Foot-Right Duration Amount of Time: 2 Duration Units: Weeks Frequency: Intermittent Hemoglobin A1C Date Value Ref Range Status 08/13/2022 5.6 4.3 - 5.6 % Final Comment: Citizen [place] Diabetes Association guidelines indicate that patients with HgbA1c in the range 5.7-6.4% are at increased risk for development of diabetes, and intervention by lifestyle modification may be beneficial. HgbA1c greater or equal to 6.5% is considered diagnostic of diabetes. 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 polyethylene glycol 3350 (MIRALAX) 17 gram/dose powder Take 8.5 g by mouth once daily. Mix with 4 ounces of liquid and allow time to dissolve. (09/28 capful = 8.5 g = approx 2 level teaspoons) Cholecalciferol, Vitamin D3, (VITAMIN D-3) 25 mcg (1,000 unit) chew Take 1 tablet by mouth once daily. triamcinolone (KENALOG) 0.025 % cream Apply 1 application to affected area twice daily. ammonium lactate (LAC-HYDRIN) 12 % cream Apply twice a day to keratosis pilaris on arms, legs as needed nystatin (MYCOSTATIN) powder Apply 1 application to affected area four times daily. lidocaine (LIDODERM) 5 % Apply 1 Patch as directed once daily. to affected area. Remove patch after 12 hours. nystatin (MYCOSTATIN) powder Apply 1 application to affected area four times daily. fluticasone (FLONASE) 50 mcg/actuation nasal spray Use 2 Sprays in each nostril once daily. Rinse mouth after use. Norethindrone, Contraceptive, (ORTHO MICRONOR) 0.35 mg tablet Take 1 tablet by mouth once daily. pantoprazole DR (PROTONIX) 20 mg tablet Take 1 tablet by mouth once daily. beginning 48 hours prior to menses and continue for 5 days while taking Naproxen. sertraline (ZOLOFT) 100 mg tablet Take 1 tablet by mouth once daily. levothyroxine (SYNTHROID) 88 mcg tablet Take 1 tablet by mouth daily before breakfast. acetaminophen (TYLENOL EXTRA STRENGTH) 500 mg tablet Take 1 tablet by mouth every 8 hours as needed for pain. acetaminophen (TYLENOL) 500 mg tablet Take 2 tablets by mouth every 8 hours as needed for pain. lidocaine (LIDOCAINE PAIN RELIEF) 4 % patch Apply 1 application as directed every 12 hours as needed. CPAP Please fit patient for new mask as well as instruct patient on machine sewer. lidocaine (LIDOCAINE PAIN RELIEF) 4 % patch Apply 1 Patch as directed once daily. lidocaine (LIDODERM) 5 % Apply 1 Patch as directed every 12 hours. Remove old patch prior to placing new patch. Location: left wrist. naproxen (NAPROSYN) 500 mg tablet Take 500 mg by mouth twice daily with meals. (Patient not taking: Reported on 05/03/2023) naproxen (NAPROSYN) 500 mg tablet Take 1 tablet by mouth every 12 hours. Take every 12 hours beginning 48 hours prior to menses and continue for 5 days. TAKE WITH FOOD. (Patient not taking: Reported on 05/03/2023) Current Facility-Administered Medications Medication Dose Route Frequency perflutren lipid microspheres 1.3 mL in NaCl (PF) 0.9% 10 mL injection (DEFINITY) INTRAVENOUS DIRECTED PRN sodium chloride 0.9 % (flush) 10 mL (BD POSIFLUSH) 10 mL INTRAVENOUS DIRECTED PRN ALLERGIES Allergen Reactions Augmentin [Amoxicil* Hives Erythromycin Rash Ibuprofen GI Upset PAST SURGICAL HISTORY Procedure Laterality Date PAST SURGICAL HISTORY OF right eye surgery unsure what for. TONSILLECTOMY & ADENOIDECTOMY <AGE 12 04/2010 Dr. Mazariegos TYMPANOSTOMY LOCAL/TOPICAL ANESTHESIA 04/2010 Dr. Mazariegos Physical Exam: OBJECTIVE: Constitutional: Pt is a well developed 22 year old adult who is alert, oriented, cooperative and in no apparent distress. Eyes: Following during examination. No redness or drainage. Respiratory: RR normal and nonlabored. Even breathing. No evidence of distress. Psychology: Patient is engaged during conversation. Normal affect and mood. Does not appear depressed or anxious. NVSI unchanged from previous visit. Dermatological: Nails 1-5 b/l are normal. Webspaces clean and dry 1-4 b/l. Skin appears well hydrated and supple. good color, texture, turgor. No open lesions present. Callus present to b/l 5th metatarsal. There is lesion to right lateral midfoot that appears to be more of blister following superficial debridement. There is dryness to b/l hallux Musculoskeletal/Orthopaedic: Patient has no pain to palpation of b/l feet ASSESSMENT: (S90.821A) Blister of right heel, initial encounter (primary encounter diagnosis) (L85.9) Hyperkeratosis (S93.402A) Sprain of left ankle, unspecified ligament, initial encounter PLAN: Patient was examined and informed of current findings. We discussed the callus of b/l 5th metatarsal. We reduced this with 15 blade. I want patient to use pummice stone periodically and use of lotion. There is dryness to b/l hallux and she was encouraged to continue with lotion There is small lesion of right lateral midfoot. Discussed possible wart vs blister vs skin nodule. Discussed referral to derm vs debridement. Informed patient that if debridement was performed, it could become larger. She elected for debridement. Upon debridement with 15 blade, lesion appears as blister Left ankle sprain is improving. Continue with rehab Follow-up kristin Lilly DPM Patient presents with: Right Foot - Established Patient: Growth on bottom of foot documented in this encounter [facility] 04-27-2023 Note [facility] 04-27-2023 History of Presen t illness Narrative Episode Visit Count: 3 Therapist That Will Accept/Oversee The Plan Of Care: Marlon Dasilva Start of Care Date: 03/22/23 Onset Date: 01/25/23 Plan of Care Certification Date: 03/22/23 Next Certification Due Date: 04/26/23 Patient Identified by Name and Date of : Yes REHABILITATION AND SPORTS THERAPY PHYSICAL THERAPY TREATMENT NOTE ASSESSMENT: Aide Lopez tolerated the session with no issues. Aide Lopez demonstrated difficulty with ankle pain that comes on and off. The patient will continue to benefit from ongoing skilled physical therapy for reassessment by supervising therapist. PLAN FOR NEXT VISIT: POC update SUBJECTIVE: Patient Reason for Visit: Really I think the ankle is better some days. The spasms is a little better. Not able to do the exercises because of being at the hospital with her mom. The back of the R calf was warm and red last night but not now. Pain: Pain Pain Level: 8 Pain Location: Ankle - Left OBJECTIVE MEASURES WITH LEVEL OF FUNCTION: R calf looks normal in color and temperature TREATMENT: Therapeutic Exercise: 1: Ankle PF BTB 2 x 10 2: Ankle eversion BTB 2 x 10 3: Ankle circles CW/CCW x 10 4: Calf stretch 3 x 30 sec 5: Ankle pumps Skilled Intervention: Patient was educated in proper exercise technique and purpose for exercises. Correct performance of therapeutic exercises was facilitated with verbal and visual cuing. Billing Therapeutic Exercise Treatment Minutes: 18 Manual TherapyTreatment Minutes: 11 Total Treatment Time Minutes (timed/untimed): 29 Session Start Time : 1740 Session Stop Time : 1809 Pt arrives 10 min late to this appointment Marlon Dasilva PT documented in this encounter [facility] 04-25-2023 Miscellaneous Notes Left message for patient with negative results and recommendations.Hillary Weber LPN Call patient and let her know her urine culture did not reveal any significant bacterial growth indicating UTI. If antibiotic is helping, she may finish it. If it is not helping, she may discontinue it. Follow-up with PCP. documented in this encounter [facility] 04-23-2023 Note [facility] 04-22-2023 Miscellaneous Notes Per phone notes, TC to Prabha, patients guardian to obtain medical information for patients upcoming appointment. Prabha states patient was in an accident in January and seen at [facility], headaches have been happening since then (about 3 months). Of note, Prabha was not aware that patient had scheduled appointment and was asking about the date and time. Prabha was unable to provide any detailed medical information, stating that doctors at [facility] told her headaches could be from head trauma as patient has hit her head several times in the past. Prabha could not give information on when these incidents occurred, the symptoms of the patients headache etc. This staff could hear Prabha asking patient, Aide, for medical information and Aide was refusing to respond. There was also another women heard in the background of the call prompting Prabha with no success. Information added to patients appointment notes. VERO Gould Sent [facility] message asking for clarification regarding patients upcoming appointment. Michelle Carolina LPN documented in this encounter [facility] 04-22-2023 Hospital Discharg e instructions Patient Education 04/21/2023 23:23:50 Abdominal Pain Abdominal Pain Abdominal pain is pain in the stomach or belly area. Everyone has this pain from time to time. In many cases it goes away on its own. But abdominal pain can sometimes be due to a serious problem, such as appendicitis. So it s important to know when to get help. Causes of abdominal pain There are many possible causes of abdominal pain. Common causes in adults include: Constipation, diarrhea, or gas Stomach acid flowing back up into the esophagus (acid reflux or heartburn) Severe acid reflux, called GERD (gastroesophageal reflux disease) A sore in the lining of the stomach or small intestine (peptic ulcer) Inflammation of the gallbladder, liver, or pancreas Gallstones or kidney stones Appendicitis Intestinal blockage An internal organ pushing through a muscle or other tissue (hernia) Urinary tract infections In women, menstrual cramps, fibroids, ovarian cysts, pelvic inflammatory disease, or endometriosis Inflammation or infection of the intestines, including Crohn's disease and ulcerative colitis Irritable bowel syndrome Diagnosing the cause of abdominal pain Your healthcare provider will give you a physical exam help find the cause of your pain. If needed, you will have tests. Belly pain has many possible causes. So it can be hard to find the reason for your pain. Giving details about your pain can help. Tell your provider where and when you feel the pain, and what makes it better or worse. Also let your provider know if you have other symptoms such as: Fever Tiredness Upset stomach (nausea) Vomiting Changes in bathroom habits Blood in the stool or black, tarry stool Weight loss that you can't explain (involuntary weight loss?) Also report any family history of stomach or intestinal problems, or cancers. Tell your provider about all your alcohol use and drug use. Tell your provider about all medicines you use, including herbs, vitamins, and supplements. Treating abdominal pain Some causes of pain need emergency medical treatment right away. These include appendicitis or a bowel blockage. Other problems can be treated with rest, fluids, or medicines. Your healthcare provider can give you specific instructions for treatment or self-care based on what is causing your pain. If you have vomiting or diarrhea, sip water or other clear fluids. When you are ready to eat solid foods again, start with small amounts of wbqh-zh-rfxypf, low-fat foods. These include apple sauce, toast, or crackers. When to get medical care Call 911 or go to the hospital right away if you: Can t pass stool and are vomiting Are vomiting blood or have bloody diarrhea or black, tarry diarrhea Have chest, neck, or shoulder pain Feel like you might pass out Have pain in your shoulder blades with nausea Have sudden, severe belly pain Have new, severe pain unlike any you have felt before Have a belly that is rigid, hard, and hurts to touch Call your healthcare provider if you have: Pain for more than 5 days Bloating for more than 2 days Diarrhea for more than 5 days A fever of 100.4 F (38 C) or higher, or as directed by your healthcare provider Pain that gets worse Weight loss for no reason Continued lack of appetite Blood in your stool How to prevent abdominal pain Here are some tips to help prevent abdominal pain: Eat smaller amounts of food at each meal. Don't eat greasy, fried, or other high-fat foods. Don't eat foods that give you gas. Exercise regularly. Drink plenty of fluids. To help prevent GERD symptoms: Quit smoking. Reduce alcohol and foods that increase stomach acid. Don't use aspirin or hmhy-kat-nkwwyez pain and fever medicines, if possible. This includes nonsteroidal anti-inflammatory drugs (NSAIDs). Lose excess weight. Finish eating at least 2 hours before you go to bed or lie down. Raise the head of your bed. 8432-6845 [employer]. [address] [place], [place] [address]J[place] [address]. All rights reserved. This information is not intended as a substitute for professional medical care. Always follow your healthcare professional's instructions. Follow Up Care 04/21/2023 21:43:45 With:IKER TRUJILLO MD Address: [address] [place] [id number]- When:2-4 days [facility] 04-21-2023 Note Discharge Instructions Thank you for allowing [facility] to assist you with your healthcare needs. The following is important discharge information regarding your hospital visit. Diagnosis from Today's Visit Abdominal pain What to Do Next Instructions from Your Care Team No qualifying data available. Post Acute Orders No qualifying data available. You Need to Schedule the Following Appointments Follow Up with IKER TRUJILLO MD When Within 2-4 days Where: [address] [place] [id number]- Allergies Augmentin (Ibuprofen) erythromycin ibuprofen Medications Please ask your primary doctor or pharmacist before taking any other medication not listed, including over the counter drugs, herbal medications, vitamins and or supplements as they may interact with your home medications. What How Much When Why Instructions Last Dose New dicyclomine (dicyclomine 10 mg oral capsule) 1 cap by mouth Four (4) times a day Duration: 5 Days Printed Prescription New famotidine (Pepcid 40 mg oral tablet) 1 tab(s) by mouth Two (2) times a day Duration: 14 Days Printed Prescription New ondansetron (ondansetron 4 mg oral tablet, disintegrating) 1 tab(s) by mouth Every 8 hours Duration: 3 Days Printed Prescription Unchanged cholecalciferol (Vitamin D3 25 mcg (1000 intl units) oral capsule) 1 cap by mouth Every day Unchanged hydrocortisone topical (Hydrocortisone 1% cream) 1 application Topical Two (2) times a day Atopic dermatitis Unchanged levothyroxine (levothyroxine 75 mcg (0.075 mg) oral tablet) 1 tab(s) by mouth Once a day Unchanged levothyroxine (levothyroxine 88 mcg (0.088 mg) oral tablet) 1 tab(s) by mouth Once a day Unchanged loratadine (Claritin 10 mg oral tablet) 1 tab(s) by mouth Once a day Duration: 7 Days Unchanged naproxen (naproxen 500 mg oral tablet) take 1 tablet by mouth twice a day Unchanged norethindrone (Celestina 0.35 mg oral tablet) 1 tab(s) by mouth Once a day Unchanged sertraline 100 Milligram by mouth Once a day Please take this list to your next doctor s visit. Bring all medications you take, including over the counter medications, herbals and other supplements with you to your doctor s visit. Patients and families are reminded to discard old lists and to update any records with all medication providers or retail pharmacies. Education Materials Abdominal Pain Abdominal pain is pain in the stomach or belly area. Everyone has this pain from time to time. In many cases it goes away on its own. But abdominal pain can sometimes be due to a serious problem, such as appendicitis. So it s important to know when to get help. Causes of abdominal pain There are many possible causes of abdominal pain. Common causes in adults include: Constipation, diarrhea, or gas Stomach acid flowing back up into the esophagus (acid reflux or heartburn) Severe acid reflux, called GERD (gastroesophageal reflux disease) A sore in the lining of the stomach or small intestine (peptic ulcer) Inflammation of the gallbladder, liver, or pancreas Gallstones or kidney stones Appendicitis Intestinal blockage An internal organ pushing through a muscle or other tissue (hernia) Urinary tract infections In women, menstrual cramps, fibroids, ovarian cysts, pelvic inflammatory disease, or endometriosis Inflammation or infection of the intestines, including Crohn's disease and ulcerative colitis Irritable bowel syndrome Diagnosing the cause of abdominal pain Your healthcare provider will give you a physical exam help find the cause of your pain. If needed, you will have tests. Belly pain has many possible causes. So it can be hard to find the reason for your pain. Giving details about your pain can help. Tell your provider where and when you feel the pain, and what makes it better or worse. Also let your provider know if you have other symptoms such as: Fever Tiredness Upset stomach (nausea) Vomiting Changes in bathroom habits Blood in the stool or black, tarry stool Weight loss that you can't explain (involuntary weight loss?) Also report any family history of stomach or intestinal problems, or cancers. Tell your provider about all your alcohol use and drug use. Tell your provider about all medicines you use, including herbs, vitamins, and supplements. Treating abdominal pain Some causes of pain need emergency medical treatment right away. These include appendicitis or a bowel blockage. Other problems can be treated with rest, fluids, or medicines. Your healthcare provider can give you specific instructions for treatment or self-care based on what is causing your pain. If you have vomiting or diarrhea, sip water or other clear fluids. When you are ready to eat solid foods again, start with small amounts of ezso-vn-tfqtyo, low-fat foods. These include apple sauce, toast, or crackers. When to get medical care Call 911 or go to the hospital right away if you: Can t pass stool and are vomiting Are vomiting blood or have bloody diarrhea or black, tarry diarrhea Have chest, neck, or shoulder pain Feel like you might pass out Have pain in your shoulder blades with nausea Have sudden, severe belly pain Have new, severe pain unlike any you have felt before Have a belly that is rigid, hard, and hurts to touch Call your healthcare provider if you have: Pain for more than 5 days Bloating for more than 2 days Diarrhea for more than 5 days A fever of 100.4 F (38 C) or higher, or as directed by your healthcare provider Pain that gets worse Weight loss for no reason Continued lack of appetite Blood in your stool How to prevent abdominal pain Here are some tips to help prevent abdominal pain: Eat smaller amounts of food at each meal. Don't eat greasy, fried, or other high-fat foods. Don't eat foods that give you gas. Exercise regularly. Drink plenty of fluids. To help prevent GERD symptoms: Quit smoking. Reduce alcohol and foods that increase stomach acid. Don't use aspirin or teoc-jyc-nwgkhbv pain and fever medicines, if possible. This includes nonsteroidal anti-inflammatory drugs (NSAIDs). Lose excess weight. Finish eating at least 2 hours before you go to bed or lie down. Raise the head of your bed. [id number] [employer]. [address] [facility], [place] [address]. All rights reserved. This information is not intended as a substitute for professional medical care. Always follow your healthcare professional's instructions. Additional Information VACCINATE! IT SAVES LIVES! Members of the community who have not yet received the COVID-19 vaccine and would like to receive it can visit one of [facility] vaccine clinics. There are many vaccine clinic locations within the State. For locations and available times, please visit [email or web address].[email or web address] [email or web address] It is important to note that some COVID mobile vaccine clinics are held outdoors and may be canceled in rainy or stormy conditions. To learn more about pediatric vaccinations (ages 5-11), we invite you to visit the [facility] webpage. https://[email or web address]/p [email or web address]-[email or web address] [email or web address]-[email or web address] To learn more about the COVID-19 vaccine, we invite you to visit the CDC website for a list of frequently asked questions. https://www.cdc.gov/coronavirus/ 2019-ncov/vaccines/faq.html [facility] Patient Portal Access Instructions: Stay connected with your healthcare team and access your personal medical information anytime with the [facility] Patient Portal. If you would like a full copy of your medical records please contact the [facility] Medical Records Department Wednesday through Wednesday between 8a.m. and 4:30p.m. Please follow the directions below to access the portal: 1.Access the email account you provided upon registration to the hospital.2.Look for an invitation email from [facility].3.Open the email and access the invitation link: Accept Invitation to [facility]4.Fill in the required harrington to create your account. Sign into www.[employer] with your username and password that you created in the above steps to stay up to date. You can then view a summary of results, a summary of your visits, and the ability to download your summaries to your computer or send the information securely to a physician. Remember that your healthcare information is confidential, so carefully consider who you will allow to register on the [facility] Patient Portal for access to your information. You can also access the [facility] Patient Portal on the Care Team Connect adrianna. Simply click on Health Records under Health Data and then click on the [facility] logo. HOW TO SAFELY DISPOSE OF PRESCRIPTION MEDICATIONS Please use one of the following methods to safely dispose of your unused medications. 1.Use a drug disposal kit: the drug disposal pouch allows you to safely discard your old and unused drugs. Ask your nurse to give you one when you are discharged.2.Visit a local take-back location: Many local pharmacies and police departments have programs that collect old and unwanted prescription drugs. Call your local pharmacy or go to http://Gold Lasso.CoreOptics/9Q4Rr1v to find one close to you.3.Make use of household items: Use cat litter or old coffee grounds to dispose medications if other options are not available. Mix your drugs with these household products, seal them in an airtight container and throw it into the garbage. Call [facility]: [phone] to be sure your drugs can be disposed of in this way. Some medicines may require a different approach.4.Never flush your medications down the toilet. IF YOU HAVE BEEN PRESCRIBED AN OPIOIDS FOR PAIN If you have been prescribed an opioid (such as hydrocodone, oxycodone or morphine), it is critical to understand the possible side effects and risks of opioid pain medications. Even when taken as directed, opioids can have several side effects including: Tolerance, meaning you might need to take more of a medication for the same pain relief. Nausea, vomiting and/or constipation. Sleepiness, dizziness, dry mouth, confusion, depression or itching. Physical dependence, meaning you have withdrawal symptoms when a medication is stopped ? this can develop within a few days. KNOW YOUR RESPONSIBILITIES It is important to know exactly how much and how often to take the opioid pain medications you are prescribed. Never take opioids in higher amounts or more often than prescribed. Do not combine opioids with alcohol or other drugs that cause drowsiness, such as benzodiazepines, also known as benzos, including diazepam and alprazolam, muscle relaxants or sleep aids. Never sell or share prescription opioids. This is illegal. Store opioids in a secure place and out of reach of others (including children, family, friends and visitors). The last page(s) of this document has been signed and retained as a CHART COPY Signatures Patient Education Materials Abdominal Pain Medication Leaflets My discharge plan and instructions have been reviewed and explained to me and IABRIL HALEY M understand my current condition and have read and understand these discharge instructions. I have received a written copy of the plan/instructions. If I have questions, I am aware that I should contact my doctor. 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 Jimena Bangura LPN Pt called in and requested to have the referral to Ortho faxed to [facility]. Hand pain and swelling. Pt was seen in the office today 04-12-23 after having a fall yesterday 04/07/23 and 03-30-23. Done. Jimena PATTERSON documented in this encounter [facility] 04-12-2023 Note [facility] 04-12-2023 History of Presen t illness Narrative Chief Complaint Patient presents with: Hand Pain: LEFT knuckle x 2 weeks HPI Aide Lopez is a 22 year old adult who presents here today for Above Complaints. Patient here with complaints of left hand pain pacifically left knuckle pain. Present for 2 weeks. Did have a fall, states that she tripped over her dog in the garage. Went to [facility] on April 09, had x-ray of left hand completed. There is no fracture or other concerning features. It was also imaged on 04/07, and did not show any fracture or other concerning features. States that picking up objects is painful. She has iced the area. Mother gave her Tylenol. Emergency room gave her a muscle relaxer which she tried and it did not help. Patient would like a referral to orthopedics. She would like to go to [facility] where her mother is going. Past medical history, appointments, medications, allergies reviewed. EXAM: BP 126/82 Pulse 76 Resp 16 Wt 122.9 kg (271 lb) LMP 03/27/2023 BMI 44.41 kg/m General Appearance: Well appearing, alert, in no acute distress, well-hydrated, well nourished.. Musculoskeletal: Left hand: She is able to freely move her fingers without difficulty. 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 When examining and comparing the left hand to the right hand, there is a small amount of swelling present on the third metatarsal. Tenderness is over the third metatarsal, knuckle region. ASSESSMENT/PLAN: 1. Hand pain, left - ICD9: 729.5, ICD10: M79.642 -Discussed with patient likely contusion. She has had 2 separate x-rays that were completed 10 days after the initial injury. Both showing no fracture. Continue with Tylenol. Patient wanted a referral to orthopedics. She would like to go to [facility]. She will make appointment. - CONSULT TO ORTHOPAEDICS Al Huerta APRN.CNP This note was partly generated using [employer]Dex voice recognition dictation and may contain some misspelled or inaccurate words missed on review. documented in this encounter [facility] 04-09-2023 Miscellaneous Notes Pt notified of results via ContactPoint. Mary Spaulding Ma Can you please call the patient and let her know that I reviewed her x-ray results. X-rays of both the hand and shoulder were all normal. No fractures, dislocations, or any other abnormalities were noted. She may continue supportive care at home. Please let me know if she has any questions. Thank you. Mamta Saez APRN.CNP documented in this encounter [facility] 04-07-2023 Note [facility] 04-07-2023 Note [facility] 04-07-2023 Instructions Mamta Saez APRN.COOPER - 04/07/2023 11:42 AM EDT Get xray completed today Continue with supportive care at home Ice, elevate, wear brace that was provided. Follow up pending test results. documented in this encounter [facility] 04-07-2023 History of Presen t illness Narrative This is a 22 year old adult who presents today with: Patient presents with: Acute Visit: right shoulder pain HISTORY OF PRESENT ILLNESS: Aide Lopez is a 22 year old adult. Patient presents with: Acute Visit: right shoulder pain On going right shoulder pain. Was seen in office on 04/01/2023. Refers that on March 30 she tripped getting into the pool falling on concrete. Exam at that time was within normal limits, no signs of injury were seen. Has been taking Tylenol as needed for pain. Refers that shoulder pain is improving with lidocaine patch. Was seen in express care yesterday for hand pain, refers that she tripped over her dog and fell. Hand brace was provided. Refers that her left knuckle is sore. Cannot tolerate wearing the brace, refers it hurts too bad. Refers that the hand goes numb when pushing wheelchair. 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 TONSILLECTOMY & ADENOIDECTOMY <AGE 12 04/2010 Dr. Mazariegos TYMPANOSTOMY LOCAL/TOPICAL ANESTHESIA 04/2010 Dr. Mazariegos ALLERGIES Augmentin [Amoxicillin-Pot Clavulanate], Erythromycin, and Ibuprofen MEDICATIONS Current Outpatient Medications Medication Sig naproxen (NAPROSYN) 500 mg tablet Take 500 mg by mouth twice daily with meals. polyethylene glycol 3350 (MIRALAX) 17 gram/dose powder Take 8.5 g by mouth once daily. Mix with 4 ounces of liquid and allow time to dissolve. (1/2 capful = 8.5 g = approx 2 level teaspoons) Cholecalciferol, Vitamin D3, (VITAMIN D-3) 25 mcg (1,000 unit) chew Take 1 tablet by mouth once daily. triamcinolone (KENALOG) 0.025 % cream Apply 1 application to affected area twice daily. ammonium lactate (LAC-HYDRIN) 12 % cream Apply twice a day to keratosis pilaris on arms, legs as needed nystatin (MYCOSTATIN) powder Apply 1 application to affected area four times daily. lidocaine (LIDODERM) 5 % Apply 1 Patch as directed once daily. to affected area. Remove patch after 12 hours. nystatin (MYCOSTATIN) powder Apply 1 application to affected area four times daily. fluticasone (FLONASE) 50 mcg/actuation nasal spray Use 2 Sprays in each nostril once daily. Rinse mouth after use. naproxen (NAPROSYN) 500 mg tablet Take 1 tablet by mouth every 12 hours. Take every 12 hours beginning 48 hours prior to menses and continue for 5 days. TAKE WITH FOOD. Norethindrone, Contraceptive, (ORTHO MICRONOR) 0.35 mg tablet Take 1 tablet by mouth once daily. pantoprazole DR (PROTONIX) 20 mg tablet Take 1 tablet by mouth once daily. beginning 48 hours prior to menses and continue for 5 days while taking Naproxen. sertraline (ZOLOFT) 100 mg tablet Take 1 tablet by mouth once daily. levothyroxine (SYNTHROID) 88 mcg tablet Take 1 tablet by mouth daily before breakfast. acetaminophen (TYLENOL EXTRA STRENGTH) 500 mg tablet Take 1 tablet by mouth every 8 hours as needed for pain. acetaminophen (TYLENOL) 500 mg tablet Take 2 tablets by mouth every 8 hours as needed for pain. lidocaine (LIDOCAINE PAIN RELIEF) 4 % patch Apply 1 application as directed every 12 hours as needed. CPAP Please fit patient for new mask as well as instruct patient on machine sewer. lidocaine (LIDOCAINE PAIN RELIEF) 4 % patch Apply 1 Patch as directed once daily. lidocaine (LIDODERM) 5 % Apply 1 Patch as directed every 12 hours. Remove old patch prior to placing new patch. Location: left wrist. Current Facility-Administered Medications Medication Dose Route Frequency perflutren lipid microspheres 1.3 mL in NaCl (PF) 0.9% 10 mL injection (DEFINITY) INTRAVENOUS DIRECTED PRN sodium chloride 0.9 % (flush) 10 mL (BD POSIFLUSH) 10 mL INTRAVENOUS DIRECTED PRN FAMILY HISTORY Problem Relation Age of Onset Asthma Mother other (hearing problem) Mother Heart Father other (paralyzed due to accident) Sister Asthma Maternal Uncle Emphysema Maternal Grandmother Asthma Maternal Grandmother Heart Paternal Grandmother Social History Tobacco Use Smoking status: Never Smokeless tobacco: Never Vaping Use Vaping Use: Never used Substance Use Topics Alcohol use: No Drug use: No REVIEW OF SYSTEMS GENERAL: No weight loss, malaise or fevers/chills HEENT: Negative for frequent or significant headaches, No changes in hearing or vision. NECK: Negative for lumps, goiter, pain and significant neck swelling RESPIRATORY: Negative for cough, hemoptysis, wheezing, dyspnea or shortness of breath CARDIOVASCULAR: Negative for chest pain, leg swelling, orthopnea, or palpitations GI: No nausea, vomiting, or diarrhea/constipation. No hematochezia/melena. No heartburn or reflux symptoms. : No history of dysuria, frequency or incontinence MUSCULOSKELETAL: + Right shoulder and Left hand pain. SKIN: Negative for lesions, rash, and itching ENDOCRINE: Negative for cold or heat intolerance, polyuria, polydipsia and goiter NEURO: No history of headaches, syncope, paralysis, seizures or tremors MOOD: Negative for depression, anxiety, or suicidal ideation. EXAM: BP 130/80 Pulse 96 Resp 16 Wt 122.5 kg (270 lb) LMP 03/27/2023 SpO2 95% BMI 44.25 kg/m PHYSICAL EXAM: General Appearance: Well appearing, alert, in no acute distress, well-hydrated, well nourished. Skin: Skin color, texture, turgor normal, no suspicious rashes or lesions. Head: Normocephalic, no masses, lesions, tenderness or abnormalities. Eyes: Anicteric sclera. Extraocular movements are intact. Extremities: No deformities, edema, skin discoloration, clubbing or cyanosis. Good capillary refill. Musculoskeletal: Left hand, mild swelling noted, no ecchymosis/color change, full ROM, tenderness with palpation along the middle finger. Peripheral Pulses: Normal, Capillary refill <2secs, strong peripheral pulses, Pulses palpable. Neurologic: Gait normal. Sensation grossly intact. ASSESSMENT/PLAN: 1. Left hand pain - ICD9: 729.5, ICD10: M79.642 (primary diagnosis) - Get xray completed. - Denied wanting Toradol injection for pain. - Continue supportive care at home, may continue with Tylenol, ice, and elevation. - XR HAND GENERAL 3V PA/LAT/OBL LEFT 2. Acute pain of right shoulder - ICD9: 719.41, ICD10: M25.511 - Due to ongoing pain patient is requesting x-ray to be completed. - XR SHOULDER GENERAL 3V OR MORE AP/TRUE AP/OTHER RIGHT Follow up pending test results or sooner as needed. Discussed treatment plan and patient voices understanding. Patient's questions answered appropriately. Medications and potential side effects were discussed and patient voices understanding. Mamta Saez APRN.FIELD GEOLOGIST This note was partially generated using [employer] voice recognition system. Note was reviewed for accuracy. There may be minor misspellings or grammar miscues with [employer] voice recognition. documented in this encounter [facility] 04-06-2023 Note [facility] 04-06-2023 History of Presen t illness Narrative Images from the original note were not included. Subjective Fall Pertinent negatives include no fever and no tingling. Aide Lopez is a 22 year old adult who presents with left hand pain. States tripped over dog and hit her hand. This happened 3 days ago. Complains of pain over MCP joints. No treatments tried at home. Rates her pain 10 . Review of Systems Constitutional: Negative for fever. Musculoskeletal: Positive for joint pain. Negative for falls. Skin: Negative for itching and rash. Neurological: Negative for tingling, sensory change and weakness. 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 TONSILLECTOMY & ADENOIDECTOMY <AGE 12 04/2010 Dr. Mazariegos TYMPANOSTOMY LOCAL/TOPICAL ANESTHESIA 04/2010 Dr. Mazariegos ALLERGIES Augmentin [Amoxicillin-Pot Clavulanate], Erythromycin, and Ibuprofen MEDICATIONS naproxen (NAPROSYN) 500 mg tablet^Take 500 mg by mouth twice daily with meals.^Disp: ^Rfl: polyethylene glycol 3350 (MIRALAX) 17 gram/dose powder^Take 8.5 g by mouth once daily. Mix with 4 ounces of liquid and allow time to dissolve. (1/2 capful = 8.5 g = approx 2 level teaspoons)^Disp: 510 g^Rfl: 5 Cholecalciferol, Vitamin D3, (VITAMIN D-3) 25 mcg (1,000 unit) chew^Take 1 tablet by mouth once daily.^Disp: 30 tablet^Rfl: 5 triamcinolone (KENALOG) 0.025 % cream^Apply 1 application to affected area twice daily.^Disp: 30 g^Rfl: 0 ammonium lactate (LAC-HYDRIN) 12 % cream^Apply twice a day to keratosis pilaris on arms, legs as needed^Disp: 60 g^Rfl: 0 nystatin (MYCOSTATIN) powder^Apply 1 application to affected area four times daily.^Disp: 60 g^Rfl: 5 lidocaine (LIDODERM) 5 %^Apply 1 Patch as directed once daily. to affected area. Remove patch after 12 hours.^Disp: 30 Patch^Rfl: 0 nystatin (MYCOSTATIN) powder^Apply 1 application to affected area four times daily.^Disp: 60 g^Rfl: 5 fluticasone (FLONASE) 50 mcg/actuation nasal spray^Use 2 Sprays in each nostril once daily. Rinse mouth after use.^Disp: 1 Each^Rfl: 3 naproxen (NAPROSYN) 500 mg tablet^Take 1 tablet by mouth every 12 hours. Take every 12 hours beginning 48 hours prior to menses and continue for 5 days. TAKE WITH FOOD.^Disp: 90 tablet^Rfl: 0 Norethindrone, Contraceptive, (ORTHO MICRONOR) 0.35 mg tablet^Take 1 tablet by mouth once daily.^Disp: 84 tablet^Rfl: [address] (PROTONIX) 20 mg tablet^Take 1 tablet by mouth once daily. beginning 48 hours prior to menses and continue for 5 days while taking Naproxen.^Disp: 90 tablet^Rfl: 4 sertraline (ZOLOFT) 100 mg tablet^Take 1 tablet by mouth once daily.^Disp: 30 tablet^Rfl: 11 levothyroxine (SYNTHROID) 88 mcg tablet^Take 1 tablet by mouth daily before breakfast.^Disp: 30 tablet^Rfl: 11 acetaminophen (TYLENOL EXTRA STRENGTH) 500 mg tablet^Take 1 tablet by mouth every 8 hours as needed for pain.^Disp: 30 tablet^Rfl: 0 acetaminophen (TYLENOL) 500 mg tablet^Take 2 tablets by mouth every 8 hours as needed for pain.^Disp: 50 tablet^Rfl: 0 lidocaine (LIDOCAINE PAIN RELIEF) 4 % patch^Apply 1 application as directed every 12 hours as needed.^Disp: 6 Patch^Rfl: 0 CPAP^Please fit patient for new mask as well as instruct patient on machine sewer.^Disp: 1 Device^Rfl: 99 lidocaine (LIDOCAINE PAIN RELIEF) 4 % patch^Apply 1 Patch as directed once daily.^Disp: 10 Patch^Rfl: 2 lidocaine (LIDODERM) 5 %^Apply 1 Patch as directed every 12 hours. Remove old patch prior to placing new patch. Location: left wrist.^Disp: 10 Patch^Rfl: 0 FAMILY HISTORY Problem Relation Age of Onset Asthma Mother other (hearing problem) Mother Heart Father other (paralyzed due to accident) Sister Asthma Maternal Uncle Emphysema Maternal Grandmother Asthma Maternal Grandmother Heart Paternal Grandmother Social History Tobacco Use Smoking status: Never Smokeless tobacco: Never Vaping Use Vaping Use: Never used Substance Use Topics Alcohol use: No Drug use: No Objective Physical Exam Vitals and nursing note reviewed. Constitutional: General: Aide Lopez is not in acute distress. Appearance: Normal appearance. Aide Lopez is obese. Aide Lopez is not ill-appearing. Musculoskeletal: General: Tenderness and signs of injury present. No swelling or deformity. Hands: Skin: General: Skin is warm and dry. Capillary Refill: Capillary refill takes less than 2 seconds. Findings: No bruising, erythema or rash. Neurological: Mental Status: Aide Lopez is alert. ASSESSMENT/PLAN: 1. Hand pain, left - ICD9: 729.5, ICD10: M79.642 - hand splint applied to left hand. - rest for 2 days, then gentle range of motion. - Follow-up with your PCP in 3-5 days if symptoms have not improved or sooner if symptoms worsen - Discussed red flags and need for immediate medical evaluation if any occur. - Discussed supportive care treatment with fluids, rest and analgesia. - Discussed expected course of illness Silvia Mireles APRN.FIELD GEOLOGIST documented in this encounter [facility] 04-06-2023 Instructions Silvia Mireles APRN.FIELD GEOLOGIST - 04/06/2023 5:25 PM EDT ASSESSMENT/PLAN: 1. Hand pain, left - ICD9: 729.5, ICD10: M79.642 - hand splint applied to left hand. - rest for 2 days, then gentle range of motion. - Follow-up with your PCP in 3-5 days if symptoms have not improved or sooner if symptoms worsen - Discussed red flags and need for immediate medical evaluation if any occur. - Discussed supportive care treatment with fluids, rest and analgesia. - Discussed expected course of illness Silvia Mireles APRN.FIELD GEOLOGIST R.I.C.E. The general care of your injury includes the following: Resting, Icing, Compressing and Elevating the injured area. Remember this as RICE. REST: Limit the use of the injured body part. ICE: By applying ice to the affected area, swelling and pain can be reduced. Place some ice cubes in a re-sealable (Ziploc) bag and add some water. Put a thin washcloth between the bag and your skin. Apply the ice bag to the area for at least 20 minutes. Do this at least 4 times per day. Using the ice for longer times and more frequently is OK. NEVER APPLY ICE DIRECTLY TO THE SKIN. COMPRESS: Compression means to apply pressure around the injured area such as with a splint, cast or an latricia bandage. Compression decreases swelling and improves comfort. Compression should be tight enough to relieve swelling but not so tight as to decrease circulation. Increasing pain, numbness, tingling, or change in skin color, are all signs of decreased circulation. ELEVATE: Elevate the injured part. For example, elevate your foot by placing it on a chair while sitting, or propping it up on pillows when lying down. documented in this encounter [facility] 04-06-2023 Note [facility] 04-06-2023 Miscellaneous Notes Patient present to office today for other appointment in different dept. Patient states dog ate speed pro brace. This nurse provided size Large brace to patient and notified rep. Of situation. Sruthi Lopez LPN documented in this encounter [facility] 04-06-2023 History of Presen t illness Narrative Episode Visit Count: 2 Therapist That Will Accept/Oversee The Plan Of Care: Marlon Dasilva Start of Care Date: 03/22/23 Onset Date: 01/25/23 Plan of Care Certification Date: 03/22/23 Next Certification Due Date: 04/26/23 Patient Identified by Name and Date of : Yes REHABILITATION AND SPORTS THERAPY PHYSICAL THERAPY TREATMENT NOTE ASSESSMENT: Aide Lopez tolerated the session with no issues. Aide Lopez demonstrated difficulty with calf spasms per pt report. The patient will continue to benefit from ongoing skilled physical therapy to progress toward set goals. PLAN FOR NEXT VISIT: STM over gastroc as tolerated. Stretching of gastroc SUBJECTIVE: Patient Reason for Visit: Gets cramps in the back of the leg. Wondering how you tell if muscles are tight. Pain: Pain Pain Level: (Not rated) Pain Location: Ankle - Left OBJECTIVE MEASURES WITH LEVEL OF FUNCTION: TREATMENT: Therapeutic Exercise: 1: Ankle PF BTB 2 x 10 2: Ankle eversion BTB 2 x 10 3: Sidelying clamshell 3 x 10 4: Calf stretch 3 x 30 sec Skilled Intervention: Patient was educated in proper exercise technique and purpose for exercises. Correct performance of therapeutic exercises was facilitated with verbal cuing. Billing Therapeutic Exercise Treatment Minutes: 30 Total Treatment Time Minutes (timed/untimed): 30 Pt arrived 15 min late for this appointment Marlon Dasilva PT documented in this encounter [facility] 04-02-2023 Miscellaneous Notes Pt viewed message with no further response.Anabella Andrade LPN ' Message sent to pt, when she was seen in the office on 12/17/22 refills were given. Will await further response from pt.Anabella Andrade LPN documented in this encounter [facility] 04-02-2023 Miscellaneous Notes OK to refill as ordered Iker Trujillo MD Patient phones requesting refills as follows: Requested Prescriptions Pending Prescriptions Disp Refills polyethylene glycol 3350 (MIRALAX) 17 gram/dose powder Sig: Take 8.5 g by mouth once daily. Mix with 4 ounces of liquid and allow time to dissolve. (1/2 capful = 8.5 g = approx 2 level teaspoons) Cholecalciferol, Vitamin D3, (VITAMIN D-3) 25 mcg (1,000 unit) chew 30 tablet 5 Sig: Take 1 tablet by mouth once daily. RONNY-04/01/23 Labs-10/23/22 NOV-none Please review and advise. Anna Gates LPN documented in this encounter [facility] 04-01-2023 Note [facility] 03-31-2023 Note [facility] 03-31-2023 Note [facility] 03-31-2023 History of Presen t illness Narrative Images from the original note were not included. Subjective HPI HPI Aide Lopez is a 22 year old adult who presents today for CC of left ankle injury while swimming 1 day ago. Has tried otc medication for relief. Symptoms are worsened by rom of ankle. Risk factors hx of left ankle. Denies possibility of being . 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 TONSILLECTOMY & ADENOIDECTOMY <AGE 12 04/2010 Dr. Mazariegos TYMPANOSTOMY LOCAL/TOPICAL ANESTHESIA 04/2010 Dr. Mazariegos ALLERGIES Augmentin [Amoxicillin-Pot Clavulanate], Erythromycin, and Ibuprofen MEDICATIONS naproxen (NAPROSYN) 500 mg tablet^Take 1 tablet by mouth every 12 hours. Take every 12 hours beginning 48 hours prior to menses and continue for 5 days. TAKE WITH FOOD.^Disp: 90 tablet^Rfl: 0 Norethindrone, Contraceptive, (ORTHO MICRONOR) 0.35 mg tablet^Take 1 tablet by mouth once daily.^Disp: 84 tablet^Rfl: [address] (PROTONIX) 20 mg tablet^Take 1 tablet by mouth once daily. beginning 48 hours prior to menses and continue for 5 days while taking Naproxen.^Disp: 90 tablet^Rfl: 4 fluticasone (FLONASE) 50 mcg/actuation nasal spray^Use 2 Sprays in each nostril once daily. Rinse mouth after use.^Disp: 1 Each^Rfl: 3 sertraline (ZOLOFT) 100 mg tablet^Take 1 tablet by mouth once daily.^Disp: 30 tablet^Rfl: 11 levothyroxine (SYNTHROID) 88 mcg tablet^Take 1 tablet by mouth daily before breakfast.^Disp: 30 tablet^Rfl: 11 nystatin (MYCOSTATIN) powder^Apply 1 application to affected area four times daily.^Disp: 60 g^Rfl: 5 nystatin (MYCOSTATIN) powder^Apply 1 application to affected area four times daily.^Disp: 60 g^Rfl: 5 lidocaine (LIDODERM) 5 %^Apply 1 Patch as directed once daily. to affected area. Remove patch after 12 hours.^Disp: 30 Patch^Rfl: 0 triamcinolone (KENALOG) 0.025 % cream^Apply 1 application to affected area twice daily.^Disp: 30 g^Rfl: 0 ammonium lactate (LAC-HYDRIN) 12 % cream^Apply twice a day to keratosis pilaris on arms, legs as needed^Disp: 60 g^Rfl: 0 acetaminophen (TYLENOL EXTRA STRENGTH) 500 mg tablet^Take 1 tablet by mouth every 8 hours as needed for pain.^Disp: 30 tablet^Rfl: 0 acetaminophen (TYLENOL) 500 mg tablet^Take 2 tablets by mouth every 8 hours as needed for pain.^Disp: 50 tablet^Rfl: 0 lidocaine (LIDOCAINE PAIN RELIEF) 4 % patch^Apply 1 application as directed every 12 hours as needed.^Disp: 6 Patch^Rfl: 0 CPAP^Please fit patient for new mask as well as instruct patient on machine sewer.^Disp: 1 Device^Rfl: 99 lidocaine (LIDOCAINE PAIN RELIEF) 4 % patch^Apply 1 Patch as directed once daily.^Disp: 10 Patch^Rfl: 2 lidocaine (LIDODERM) 5 %^Apply 1 Patch as directed every 12 hours. Remove old patch prior to placing new patch. Location: left wrist.^Disp: 10 Patch^Rfl: 0 polyethylene glycol 3350 (MIRALAX) 17 gram/dose powder^Take 8.5 g by mouth once daily. Mix with 4 ounces of liquid and allow time to dissolve. (1/2 capful = 8.5 g = approx 2 level teaspoons)^Disp: 1 Bottle^Rfl: 5 Cholecalciferol, Vitamin D3, (VITAMIN D-3) 1,000 unit chew^Take 1 tablet by mouth once daily.^Disp: 30 tablet^Rfl: 5 FAMILY HISTORY Problem Relation Age of Onset Asthma Mother other (hearing problem) Mother Heart Father other (paralyzed due to accident) Sister Asthma Maternal Uncle Emphysema Maternal Grandmother Asthma Maternal Grandmother Heart Paternal Grandmother Social History Tobacco Use Smoking status: Never Smokeless tobacco: Never Vaping Use Vaping Use: Never used Substance Use Topics Alcohol use: No Drug use: No ROS Objective Blood pressure 112/74, pulse 91, temperature 36.4 C (97.5 F), temperature source Tympanic, resp. rate 18, weight 98 kg (216 lb), last menstrual period 2022, SpO2 96 %. Physical Exam Constitutional: General: Aide Lopez is not in acute distress. Appearance: Aide Lopez is not toxic-appearing or diaphoretic. HENT: Head: Normocephalic and atraumatic. Cardiovascular: Pulses: Dorsalis pedis pulses are 2+ on the left side. Posterior tibial pulses are 2+ on the left side. Pulmonary: Effort: Pulmonary effort is normal. No accessory muscle usage or respiratory distress. Musculoskeletal: Legs: Neurological: Mental Status: Aide Lopez is alert and oriented to person, place, and time. ASSESSMENT/PLAN: 1. Ankle injuries, left, initial encounter - ICD9: 959.7, ICD10: S99.912A -no bony abnormality noted on xray -Rest, Ice, Compression, Elevation discussed -discussed use of ibuprofen -follow up with primary care if symptoms persist/worsen in 10-14 days - XR ANKLE GENERAL 3V AP/LAT/OBL LEFT IMPRESSION: Interval slight improvement of soft tissue swelling along the lateral malleolus. No acute fracture seen. Dictated by : MD Ernesto AMAYA APRN.FIELD GEOLOGIST documented in this encounter [facility] 03-29-2023 Hospital Discharg e instructions Patient Education 03/28/2023 22:27:52 Muscle Strain, Extremity Muscle Strain in the Extremities A muscle strain is a stretching and tearing of muscle fibers. This causes pain, especially when you move that muscle. There may also be some swelling and bruising. Home care Keep the hurt area raised above heart level to reduce pain and swelling. This is especially important during the first 48 hours. Apply an ice pack over the injured area for 15 to 20 minutes every 3 to 6 hours. You should do this for the first 24 to 48 hours. You can make an ice pack by filling a plastic bag that seals at the top with ice cubes and then wrapping it with a thin towel. Be careful not to injure your skin with the ice treatments. Ice should never be applied directly to skin. Continue the use of ice packs for relief of pain and swelling as needed. After 48 hours, apply heat (warm shower or warm bath) for 15 to 20 minutes several times a day, or alternate ice and heat. You may use [id number] pain medicine to control pain, unless another medicine was prescribed. If you have chronic liver or kidney disease or ever had a stomach ulcer or gastrointestinal bleeding, talk with your healthcare provider before using these medicines. For leg strains: If crutches have been recommended, don t put full weight on the hurt leg until you can do so without pain. You can return to sports when you are able to hop and run on the injured leg without pain. Follow-up care Follow up with your healthcare provider, or as advised. When to seek medical advice Call your healthcare provider right away if any of these occur: The toes of the injured leg become swollen, cold, blue, numb, or tingly Pain or swelling increases [phone] [employer]. [address] [place] [address], [place] [address]. All rights reserved. This information is not intended as a substitute for professional medical care. Always follow your healthcare professional's instructions. Follow Up Care 03/28/2023 22:10:33 With:IKER TRUJILLO MD Address: [address] [place] [id number]- When:2-4 days [facility] 03-28-2023 Note Discharge Instructions Thank you for allowing [facility] to assist you with your healthcare needs. The following is important discharge information regarding your hospital visit. What to Do Next Instructions from Your Care Team No qualifying data available. Post Acute Orders No qualifying data available. You Need to Schedule the Following Appointments Follow Up with IKER TRUJILLO MD When Within 2-4 days Where: [address] [place] [address] [phone]- Allergies Augmentin (Ibuprofen) erythromycin ibuprofen Medications Please ask your primary doctor or pharmacist before taking any other medication not listed, including over the counter drugs, herbal medications, vitamins and or supplements as they may interact with your home medications. What How Much When Why Instructions Last Dose Unchanged hydrocortisone topical (Hydrocortisone 1% cream) 1 application Topical Two (2) times a day Atopic dermatitis Unchanged levothyroxine (levothyroxine 75 mcg (0.075 mg) oral tablet) 1 tab(s) by mouth Once a day Unchanged loratadine (Claritin 10 mg oral tablet) 1 tab(s) by mouth Once a day Duration: 7 Days Unchanged naproxen (naproxen 500 mg oral tablet) take 1 tablet by mouth twice a day Please take this list to your next doctor s visit. Bring all medications you take, including over the counter medications, herbals and other supplements with you to your doctor s visit. Patients and families are reminded to discard old lists and to update any records with all medication providers or retail pharmacies. Education Materials Muscle Strain in the Extremities A muscle strain is a stretching and tearing of muscle fibers. This causes pain, especially when you move that muscle. There may also be some swelling and bruising. Home care Keep the hurt area raised above heart level to reduce pain and swelling. This is especially important during the first 48 hours. Apply an ice pack over the injured area for 15 to 20 minutes every 3 to 6 hours. You should do this for the first 24 to 48 hours. You can make an ice pack by filling a plastic bag that seals at the top with ice cubes and then wrapping it with a thin towel. Be careful not to injure your skin with the ice treatments. Ice should never be applied directly to skin. Continue the use of ice packs for relief of pain and swelling as needed. After 48 hours, apply heat (warm shower or warm bath) for 15 to 20 minutes several times a day, or alternate ice and heat. You may use [id number] pain medicine to control pain, unless another medicine was prescribed. If you have chronic liver or kidney disease or ever had a stomach ulcer or gastrointestinal bleeding, talk with your healthcare provider before using these medicines. For leg strains: If crutches have been recommended, don t put full weight on the hurt leg until you can do so without pain. You can return to sports when you are able to hop and run on the injured leg without pain. Follow-up care Follow up with your healthcare provider, or as advised. When to seek medical advice Call your healthcare provider right away if any of these occur: The toes of the injured leg become swollen, cold, blue, numb, or tingly Pain or swelling increases [phone] [employer]. [address] [place] [address]. All rights reserved. This information is not intended as a substitute for professional medical care. Always follow your healthcare professional's instructions. Additional Information VACCINATE! IT SAVES LIVES! Members of the community who have not yet received the COVID-19 vaccine and would like to receive it can visit one of [facility] vaccine clinics. There are many vaccine clinic locations within the [facility]. For locations and available times, please visit [email or web address] It is important to note that some COVID mobile vaccine clinics are held outdoors and may be canceled in rainy or stormy conditions. To learn more about pediatric vaccinations (ages 5-11), we invite you to visit the [facility] webpage. [email or web address] To learn more about the COVID-19 vaccine, we invite you to visit the CDC website for a list of frequently asked questions. https://www.cdc.gov/coronavirus/ 2019-ncov/vaccines/faq.html [facility] [employer] Patient Portal Access Instructions: Stay connected with your healthcare team and access your personal medical information anytime with the [facility] Patient Portal. If you would like a full copy of your medical records please contact the [facility] Medical Records Department Wednesday through Wednesday between 8a.m. and 4:30p.m. Please follow the directions below to access the portal: 1.Access the email account you provided upon registration to the [facility].2.Look for an invitation email from [facility].3.Open the email and access the invitation link: Accept Invitation to [facility]4.Fill in the required harrington to create your account. Sign into www.[email or web address] with your username and password that you created in the above steps to stay up to date. You can then view a summary of results, a summary of your visits, and the ability to download your summaries to your computer or send the information securely to a physician. Remember that your healthcare information is confidential, so carefully consider who you will allow to register on the [facility] Patient Portal for access to your information. You can also access the [facility] Patient Portal on the [employer]. Simply click on Health Records under Health Data and then click on the [facility] logo. HOW TO SAFELY DISPOSE OF PRESCRIPTION MEDICATIONS Please use one of the following methods to safely dispose of your unused medications. 1.Use a drug disposal kit: the drug disposal pouch allows you to safely discard your old and unused drugs. Ask your nurse to give you one when you are discharged.2.Visit a local take-back location: Many local pharmacies and police departments have programs that collect old and unwanted prescription drugs. Call your local pharmacy or go to http://Gold Lasso.CoreOptics/5B0Bk2h to find one close to you.3.Make use of household items: Use cat litter or old coffee grounds to dispose medications if other options are not available. Mix your drugs with these household products, seal them in an airtight container and throw it into the garbage. Call [facility]: [phone] to be sure your drugs can be disposed of in this way. Some medicines may require a different approach.4.Never flush your medications down the toilet. IF YOU HAVE BEEN PRESCRIBED AN OPIOIDS FOR PAIN If you have been prescribed an opioid (such as hydrocodone, oxycodone or morphine), it is critical to understand the possible side effects and risks of opioid pain medications. Even when taken as directed, opioids can have several side effects including: Tolerance, meaning you might need to take more of a medication for the same pain relief. Nausea, vomiting and/or constipation. Sleepiness, dizziness, dry mouth, confusion, depression or itching. Physical dependence, meaning you have withdrawal symptoms when a medication is stopped ? this can develop within a few days. KNOW YOUR RESPONSIBILITIES It is important to know exactly how much and how often to take the opioid pain medications you are prescribed. Never take opioids in higher amounts or more often than prescribed. Do not combine opioids with alcohol or other drugs that cause drowsiness, such as benzodiazepines, also known as benzos, including diazepam and alprazolam, muscle relaxants or sleep aids. Never sell or share prescription opioids. This is illegal. Store opioids in a secure place and out of reach of others (including children, family, friends and visitors). The last page(s) of this document has been signed and retained as a CHART COPY Signatures Patient Education Materials Muscle Strain, Extremity Medication Leaflets My discharge plan and instructions have been reviewed and explained to me and I,AIDE LOPEZ understand my current condition and have read and understand these discharge instructions. I have received a written copy of the plan/instructions. If I have questions, I am aware that I should contact my doctor. 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 Signature: Date/Time: Relationship to Patient: Witness Name/Signature: Date/Time: [facility] 03-28-2023 Emergency department Discharge summary Discharge Instructions Thank you for allowing [facility] to assist you with your healthcare needs. The following is important discharge information regarding your hospital visit. Diagnosis from Today's Visit Heart attack last night Shortness of breath When talking too much x 2 months What to Do Next Instructions from Your Care Team No qualifying data available. Post Acute Orders No qualifying data available. You Need to Schedule the Following Appointments Follow Up with IKER TRUJILLO MD When Within 2-4 days Where: [address] [place] [address]- Allergies Augmentin (Ibuprofen) erythromycin ibuprofen Medications Please ask your primary doctor or pharmacist before taking any other medication not listed, including over the counter drugs, herbal medications, vitamins and or supplements as they may interact with your home medications. What How Much When Why Instructions Last Dose Unchanged hydrocortisone topical (Hydrocortisone 1% cream) 1 application Topical Two (2) times a day Atopic dermatitis Unchanged levothyroxine (levothyroxine 75 mcg (0.075 mg) oral tablet) 1 tab(s) by mouth Once a day Unchanged loratadine (Claritin 10 mg oral tablet) 1 tab(s) by mouth Once a day Duration: 7 Days Unchanged naproxen (naproxen 500 mg oral tablet) take 1 tablet by mouth twice a day Please take this list to your next doctor s visit. Bring all medications you take, including over the counter medications, herbals and other supplements with you to your doctor s visit. Patients and families are reminded to discard old lists and to update any records with all medication providers or retail pharmacies. Education Materials Muscle Strain in the Extremities A muscle strain is a stretching and tearing of muscle fibers. This causes pain, especially when you move that muscle. There may also be some swelling and bruising. Home care Keep the hurt area raised above heart level to reduce pain and swelling. This is especially important during the first 48 hours. Apply an ice pack over the injured area for 15 to 20 minutes every 3 to 6 hours. You should do this for the first 24 to 48 hours. You can make an ice pack by filling a plastic bag that seals at the top with ice cubes and then wrapping it with a thin towel. Be careful not to injure your skin with the ice treatments. Ice should never be applied directly to skin. Continue the use of ice packs for relief of pain and swelling as needed. After 48 hours, apply heat (warm shower or warm bath) for 15 to 20 minutes several times a day, or alternate ice and heat. You may use uamn-mcz-wkeoomq pain medicine to control pain, unless another medicine was prescribed. If you have chronic liver or kidney disease or ever had a stomach ulcer or gastrointestinal bleeding, talk with your healthcare provider before using these medicines. For leg strains: If crutches have been recommended, don t put full weight on the hurt leg until you can do so without pain. You can return to sports when you are able to hop and run on the injured leg without pain. Follow-up care Follow up with your healthcare provider, or as advised. When to seek medical advice Call your healthcare provider right away if any of these occur: The toes of the injured leg become swollen, cold, blue, numb, or tingly Pain or swelling increases [id number] [employer]. [address] [place] [address], [place] [address]. All rights reserved. This information is not intended as a substitute for professional medical care. Always follow your healthcare professional's instructions. Additional Information VACCINATE! IT SAVES LIVES! Members of the community who have not yet received the COVID-19 vaccine and would like to receive it can visit one of [facility] vaccine clinics. There are many vaccine clinic locations within the [facility]. For locations and available times, please visit [email or web address] [email or web address] It is important to note that some COVID mobile vaccine clinics are held outdoors and may be canceled in rainy or stormy conditions. To learn more about pediatric vaccinations (ages 5-11), we invite you to visit the [employer] webpage. [email or web address] To learn more about the COVID-19 vaccine, we invite you to visit the CDC website for a list of frequently asked questions. https://www.cdc.gov/coronavirus/ 2019-ncov/vaccines/faq.html [facility] Patient Portal Access Instructions: Stay connected with your healthcare team and access your personal medical information anytime with the [facility] Patient Portal. If you would like a full copy of your medical records please contact the [facility] Medical Records Department Wednesday through Wednesday between 8a.m. and 4:30p.m. Please follow the directions below to access the portal: 1.Access the email account you provided upon registration to the hospital.2.Look for an invitation email from [facility].3.Open the email and access the invitation link: Accept Invitation to [facility]4.Fill in the required harrington to create your account. Sign into www.[employer] with your username and password that you created in the above steps to stay up to date. You can then view a summary of results, a summary of your visits, and the ability to download your summaries to your computer or send the information securely to a physician. Remember that your healthcare information is confidential, so carefully consider who you will allow to register on the [facility] Patient Portal for access to your information. You can also access the [facility] Patient Portal on the [employer]. Simply click on Health Records under Health Data and then click on the [facility] logo. HOW TO SAFELY DISPOSE OF PRESCRIPTION MEDICATIONS Please use one of the following methods to safely dispose of your unused medications. 1.Use a drug disposal kit: the drug disposal pouch allows you to safely discard your old and unused drugs. Ask your nurse to give you one when you are discharged.2.Visit a local take-back location: Many local pharmacies and police departments have programs that collect old and unwanted prescription drugs. Call your local pharmacy or go to http://Gold Lasso.[employer]Optics/8E0Va0u to find one close to you.3.Make use of household items: Use cat litter or old coffee grounds to dispose medications if other options are not available. Mix your drugs with these household products, seal them in an airtight container and throw it into the garbage. Call [facility]: [phone] to be sure your drugs can be disposed of in this way. Some medicines may require a different approach.4.Never flush your medications down the toilet. IF YOU HAVE BEEN PRESCRIBED AN OPIOIDS FOR PAIN If you have been prescribed an opioid (such as hydrocodone, oxycodone or morphine), it is critical to understand the possible side effects and risks of opioid pain medications. Even when taken as directed, opioids can have several side effects including: Tolerance, meaning you might need to take more of a medication for the same pain relief. Nausea, vomiting and/or constipation. Sleepiness, dizziness, dry mouth, confusion, depression or itching. Physical dependence, meaning you have withdrawal symptoms when a medication is stopped ? this can develop within a few days. KNOW YOUR RESPONSIBILITIES It is important to know exactly how much and how often to take the opioid pain medications you are prescribed. Never take opioids in higher amounts or more often than prescribed. Do not combine opioids with alcohol or other drugs that cause drowsiness, such as benzodiazepines, also known as benzos, including diazepam and alprazolam, muscle relaxants or sleep aids. Never sell or share prescription opioids. This is illegal. Store opioids in a secure place and out of reach of others (including children, family, friends and visitors). The last page(s) of this document has been signed and retained as a CHART COPY Signatures Patient Education Materials Muscle Strain, Extremity Medication Leaflets My discharge plan and instructions have been reviewed and explained to me and I,AIDE LOPEZ understand my current condition and have read and understand these discharge instructions. I have received a written copy of the plan/instructions. If I have questions, I am aware that I should contact my doctor. 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 Signature: Date/Time: Relationship to Patient: Witness Name/Signature: Date/Time: [facility] 03-22-2023 Note [facility] 03-22-2023 Note [facility] 03-22-2023 Note [facility] 03-22-2023 Note [facility] 03-22-2023 Note [facility] 03-22-2023 History of Presen t illness Narrative Episode Visit Count: 1 Therapist That Will Accept/Oversee The Plan Of Care: Marlon Dasilva Start of Care Date: 03/22/23 Onset Date: 01/25/23 Plan of Care Certification Date: 03/22/23 Next Certification Due Date: 04/26/23 Patient Identified by Name and Date of : Yes REHABILITATION AND SPORTS THERAPY PHYSICAL THERAPY EVALUATION PLAN OF CARE: Assessment: Aide Lopez presents with chief complaint of L ankle pain that interferes with stair negotiation . Aide Lopez presents with impairments in ADL's, independence in exercise, strength, and symptom management. Patient did not complete the PROMIS (Patient Reported Outcome Measures Information System). Prognosis for therapy is . Pain with palpation of achilles tendon per pt report. Ankle weakness observed in LLE. Aide Lopez will benefit from skilled therapy services to meet the goals established for this plan of care as noted below. Goals for Episode of Care: created on 03/22/23 through 05/17/23 Pt will report being able to walk without pain [place] in home exercise program. Perform stair negotiation without pain. Increased strength of L ankle to 4+/5 or greater for return to PLOF Patient Goals: Improve pain Planned Interventions, Frequency, and Duration: Current Frequency: 1x/week Duration: 4 weeks Total Number of Visits Planned: 4 Planned Treatment Interventions: Therapeutic exercise (98967), Neuromuscular re-education (39708), Manual therapy (57033), Self-nursing home management (20576), Gait Training (00863), Patient/Family/Caregiver Education PLAN FOR NEXT VISIT: Assess reaction to strengthening exercises. Progress HEP as tolerated Patient demonstrates good understanding of plan of care and treatment. The above goals and plan of care were discussed and agreed upon by patient/family. SUBJECTIVE: Aide Lopez is a 22 year old adult seen today for Was running and then twisted the ankle on the side-walk. Has spasms at times in the left leg. The ankle feels weak sometimes. Has had numbness in the leg for awhile now. Getting a nerve test at [facility]. Pain with stair negotiation and walking at times. Patient Goals: Improve pain Functional Limitations: stair negotiation Prior Level of Function: Independent without limitations Intake Information: Prescription present Previous Treatment: Immobilizer/brace Pain: Pain Pain Level: ( A lot of pain ) Pain Location: Ankle - Left PROMIS Scales T-scores: mean of general population = 50. 5 points is clinically meaningfully difference Percentiles provide an indication of how the patient's score ranks in relation to the general population. Higher percentile rankings indicate better function/quality of life. 50th percentile is the average of the general population and indicates half of respondents had a worse score. OBJECTIVE MEASURES WITH LEVEL OF FUNCTION: LE AROM R LE AROM: WNL L LE AROM: WNL L Ankle Dorsiflexion: 20 Degrees L Ankle Plantar Flexion: 55 Degrees L Ankle Inversion: 30 L Ankle Eversion: 20 LE Flexibility Flexibility: Gastrocnemius Flexibility L Gastrocnemius Flexibility: Tight LE Strength L Hip Flexion (L2): 3+/5 L Ankle Dorsiflexion (L4): 5/5 L Ankle Plantar Flexion: 4/5 L Ankle Inversion: 4/5 L Ankle Eversion: 4/5 Education: Education Learning Preferences: Demonstration, Explanation, Performance, Printed Materials Barriers: None Learning/educational needs: Home exercise program, Plan of Care Education Provided: Yes, see treatment interventions for education provided Education Provided To: Patient, Family Education Mode/Type: Demonstration, Explanation/Discussion, Literature/Printed Materials, Performance Response to Education/Teach Back: States/Identifies, Return Demonstration TREATMENT: PT Treatment Interventions: Therapeutic Exercise Evaluation Therapeutic Exercise: 1: Discussed therapy goals, exam findings, purpose of the HEP. Handout provided. 2: Ankle PF 2 x 10 against GTB 3: Ankle eversion against GTB x 10 reps Skilled Intervention: Patient was educated in proper exercise technique and purpose for exercises. Provided written instruction for home exercise program to facilitate proper performance and compliance. Correct performance of therapeutic exercises was facilitated with verbal and visual cuing. Billing * Evaluation Low Complexity: 1 Unit Therapeutic Exercise Treatment Minutes: 15 Total Treatment Time Minutes (timed/untimed): 46 Marlon Dasilva PT documented in this encounter [facility] 03-22-2023 History of Presen t illness Narrative Radiology Service Progress Note PATIENT NAME: Aide Lopez DATE OF SERVICE: March 22, 2023 TIME: 3:18 PM PATIENT IDENTITY VERIFICATION COMPLETED USING TWO (2) IDENTIFIERS: Name and Date of confirmed by patient verbally. FALL SCREENING: Has the patient had 2 falls in the last year or 1 fall with injury or currently using an Ambulatory Assistive Device (Walker, Cane, Wheelchair, Crutches, etc.)? Yes, Patient High Risk for Falls What interventions were put in place to prevent falls during this visit? Instructed Patient to Remain Seated (Not on Exam Table) Until Exam and Increased Observations by Caregivers PATIENT GENDER DATA: Female. status: : No status: NO. PATIENT RELEVANT IMPLANT DATA REVIEWED: Not Applicable RADIOLOGY DEPARTMENT: General X-ray: Exam(s) Completed: Lower Extremity X-Ray(s): Foot, Right PERIPHERAL IV DATA: Not applicable SIGNED BY: RT Martha(R) March 22, 2023 3:18 PM documented in this encounter [facility] 03-22-2023 History of Presen t illness Narrative Per Dr. Lilly, Aide was provided with post op shoe, size M, and instructed/educated in its application, wear, and care. All questions were answered, and patient was able to demonstrate competence with the necessary skills to utilize the above equipment. Sruthi Lopez LPN FOLLOW UP PODIATRIC OFFICE VISIT Chief Complaint: This 22 year old who presents for follow-up left ankle. Patient presents to clinic for follow-up left ankle sprain. Patient states the ankle is getting better. She is using the boot but states she feels better She does think she broke her big toe. She states 3 days ago, she kicked a box out of frustration. PAIN EVALUATION 03/22/2023 1416 Pain Level: 10 Pain Location: Toe Description: Sharp Duration Amount of Time: 4 Duration Units: Days Frequency: Intermittent Intervention/Comfort measure: Reposition;Relaxation Hemoglobin A1C Date Value Ref Range Status 08/13/2022 5.6 4.3 - 5.6 % Final Comment: Citizen Of [place] Diabetes Association guidelines indicate that patients with HgbA1c in the range 5.7-6.4% are at increased risk for development of diabetes, and intervention by lifestyle modification may be beneficial. HgbA1c greater or equal to 6.5% is considered diagnostic of diabetes. 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 Take every 12 hours beginning 48 hours prior to menses and continue for 5 days. TAKE WITH FOOD. Norethindrone, Contraceptive, (ORTHO MICRONOR) 0.35 mg tablet Take 1 tablet by mouth once daily. pantoprazole DR (PROTONIX) 20 mg tablet Take 1 tablet by mouth once daily. beginning 48 hours prior to menses and continue for 5 days while taking Naproxen. sertraline (ZOLOFT) 100 mg tablet Take 1 tablet by mouth once daily. levothyroxine (SYNTHROID) 88 mcg tablet Take 1 tablet by mouth daily before breakfast. nystatin (MYCOSTATIN) powder Apply 1 application to affected area four times daily. triamcinolone (KENALOG) 0.025 % cream Apply 1 application to affected area twice daily. ammonium lactate (LAC-HYDRIN) 12 % cream Apply twice a day to keratosis pilaris on arms, legs as needed acetaminophen (TYLENOL EXTRA STRENGTH) 500 mg tablet Take 1 tablet by mouth every 8 hours as needed for pain. acetaminophen (TYLENOL) 500 mg tablet Take 2 tablets by mouth every 8 hours as needed for pain. lidocaine (LIDOCAINE PAIN RELIEF) 4 % patch Apply 1 application as directed every 12 hours as needed. CPAP Please fit patient for new mask as well as instruct patient on machine sewer. Cholecalciferol, Vitamin D3, (VITAMIN D-3) 1,000 unit chew Take 1 tablet by mouth once daily. polyethylene glycol 3350 (MIRALAX) 17 gram/dose powder Take 8.5 g by mouth once daily. Mix with 4 ounces of liquid and allow time to dissolve. (1/2 capful = 8.5 g = approx 2 level teaspoons) fluticasone (FLONASE) 50 mcg/actuation nasal spray Use 2 Sprays in each nostril once daily. Rinse mouth after use. (Patient not taking: Reported on 12/17/2022) nystatin (MYCOSTATIN) powder Apply 1 application to affected area four times daily. (Patient not taking: Reported on 11/26/2022) lidocaine (LIDODERM) 5 % Apply 1 Patch as directed once daily. to affected area. Remove patch after 12 hours. (Patient not taking: Reported on 11/26/2022) lidocaine (LIDOCAINE PAIN RELIEF) 4 % patch Apply 1 Patch as directed once daily. (Patient not taking: Reported on 11/26/2022) lidocaine (LIDODERM) 5 % Apply 1 Patch as directed every 12 hours. Remove old patch prior to placing new patch. Location: left wrist. Current Facility-Administered Medications Medication Dose Route Frequency perflutren lipid microspheres 1.3 mL in NaCl (PF) 0.9% 10 mL injection (DEFINITY) INTRAVENOUS DIRECTED PRN sodium chloride 0.9 % (flush) 10 mL (BD POSIFLUSH) 10 mL INTRAVENOUS DIRECTED PRN ALLERGIES Allergen Reactions Augmentin [Amoxicil* Hives Erythromycin Rash Ibuprofen GI Upset PAST SURGICAL HISTORY Procedure Laterality Date PAST SURGICAL HISTORY OF right eye surgery unsure what for. TONSILLECTOMY & ADENOIDECTOMY <AGE 12 04/2010 Dr. Mazariegos TYMPANOSTOMY LOCAL/TOPICAL ANESTHESIA 04/2010 Dr. Mazariegos Physical Exam: OBJECTIVE: Constitutional: Pt is a well developed 22 year old adult who is alert, oriented, cooperative and in no apparent distress. Eyes: Following during examination. No redness or drainage. Respiratory: RR normal and nonlabored. Even breathing. No evidence of distress. Psychology: Patient is engaged during conversation. Normal affect and mood. Does not appear depressed or anxious. NVSI unchanged from previous visit. Dermatological: Nails 1-5 b/l are normal. Webspaces clean and dry 1-4 b/l. Skin appears well hydrated and supple. good color, texture, turgor. No open lesions present. No callosities present. Musculoskeletal/Orthopaedic: Patient has pain to palpation of right great toe. No bruising. No dislocation No pain to left ankle No laxity. ASSESSMENT: (S93.402A) Sprain of left ankle, unspecified ligament, initial encounter (primary encounter diagnosis) (S90.111A) Contusion of right great toe without damage to nail, initial encounter PLAN: Discussed left ankle sprain. Pain is improved. She states she is doing therapy and she can continue until pain is tolerable and ankle strength improves. Will transition from boot to ankle brace Discussed possible contusion of right hallux. Will dispense surgical shoe. Will order xrays. Will call with results. As I was leaving the room, patient acknowledge a possible foreign body vs wart vs callus. It appears small porokeratosis vs wart to right foot. Lesion was debrided and tca applied. Recommend the use of compound w or follow-up for debridement. Sruthi Lilly DPM AMB ROOMING INTAKE FLOWSHEET DATA Pain Pain Level: 10 Pain Location: Toe Description: Sharp Duration Amount of Time: 4 Duration Units: Days Frequency: Intermittent Intervention/Comfort measure: Reposition, Relaxation Patient presents with: Right Foot - Established Patient, Follow Up, Pain Patient states she thinks that she broke her right hallux. Patient states she kicked her a box. Sruthi Lopez LPN documented in this encounter [facility] 03-22-2023 Instructions Sruthi Lilly - 03/22/2023 2:25 PM EDT Ankle sprain: appears to be improving. Ok to transition out of boot into ankle brace at 1 hour/day and increase as tolerable. Wear brace until ankle feels strong without pain. Continue with therapy for ankle as needed Wear boot on right foot until xrays reviewed documented in this encounter [facility] 02-04-2023 Note [facility] 02-04-2023 Note [facility] 02-04-2023 Instructions Sruthi Lilly - 02/04/2023 10:51 AM EDT Continue with boot until pain subsides Can continue with ice bath x 10 minutes two to three times daily If pain improves, consider transition to ankle brace Would recommend trying therapy If pain fails to improve, consider mri documented in this encounter [facility] 02-04-2023 History of Presen t illness Narrative Images from the original note were not included. FOLLOW UP PODIATRIC OFFICE VISIT Chief Complaint: This 22 year old who presents for follow up:left ankle sprain Patient presents to clinic for follow-up left ankle sprain that occurred following a fall in mid December. Patient is using heating pad and is also icing the ankle She is using a knee walker and is using a boot. She states the pain is still 10/10. She does not feel the ankle is getting better. PAIN EVALUATION 02/04/2023 1035 Pain Level: 10 Pain Location: Foot-Left Description: Sharp Duration Amount of Time: 2 Duration Units: Months Frequency: Continuous Intervention/Comfort measure: Positioning cold/ ice Comments: ankle Hemoglobin A1C Date Value Ref Range Status 08/13/2022 5.6 4.3 - 5.6 % Final Comment: Citizen Of [place] Diabetes Association guidelines indicate that patients with HgbA1c in the range 5.7-6.4% are at increased risk for development of diabetes, and intervention by lifestyle modification may be beneficial. HgbA1c greater or equal to 6.5% is considered diagnostic of diabetes. 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 Take every 12 hours beginning 48 hours prior to menses and continue for 5 days. TAKE WITH FOOD. Norethindrone, Contraceptive, (ORTHO MICRONOR) 0.35 mg tablet Take 1 tablet by mouth once daily. pantoprazole DR (PROTONIX) 20 mg tablet Take 1 tablet by mouth once daily. beginning 48 hours prior to menses and continue for 5 days while taking Naproxen. sertraline (ZOLOFT) 100 mg tablet Take 1 tablet by mouth once daily. levothyroxine (SYNTHROID) 88 mcg tablet Take 1 tablet by mouth daily before breakfast. nystatin (MYCOSTATIN) powder Apply 1 application to affected area four times daily. triamcinolone (KENALOG) 0.025 % cream Apply 1 application to affected area twice daily. ammonium lactate (LAC-HYDRIN) 12 % cream Apply twice a day to keratosis pilaris on arms, legs as needed acetaminophen (TYLENOL EXTRA STRENGTH) 500 mg tablet Take 1 tablet by mouth every 8 hours as needed for pain. acetaminophen (TYLENOL) 500 mg tablet Take 2 tablets by mouth every 8 hours as needed for pain. lidocaine (LIDOCAINE PAIN RELIEF) 4 % patch Apply 1 application as directed every 12 hours as needed. CPAP Please fit patient for new mask as well as instruct patient on machine sewer. lidocaine (LIDODERM) 5 % Apply 1 Patch as directed every 12 hours. Remove old patch prior to placing new patch. Location: left wrist. Cholecalciferol, Vitamin D3, (VITAMIN D-3) 1,000 unit chew Take 1 tablet by mouth once daily. polyethylene glycol 3350 (MIRALAX) 17 gram/dose powder Take 8.5 g by mouth once daily. Mix with 4 ounces of liquid and allow time to dissolve. (1/2 capful = 8.5 g = approx 2 level teaspoons) fluticasone (FLONASE) 50 mcg/actuation nasal spray Use 2 Sprays in each nostril once daily. Rinse mouth after use. (Patient not taking: Reported on 12/17/2022) nystatin (MYCOSTATIN) powder Apply 1 application to affected area four times daily. (Patient not taking: Reported on 11/26/2022) lidocaine (LIDODERM) 5 % Apply 1 Patch as directed once daily. to affected area. Remove patch after 12 hours. (Patient not taking: Reported on 11/26/2022) lidocaine (LIDOCAINE PAIN RELIEF) 4 % patch Apply 1 Patch as directed once daily. (Patient not taking: Reported on 11/26/2022) Current Facility-Administered Medications Medication Dose Route Frequency perflutren lipid microspheres 1.3 mL in NaCl (PF) 0.9% 10 mL injection (DEFINITY) INTRAVENOUS DIRECTED PRN sodium chloride 0.9 % (flush) 10 mL (BD POSIFLUSH) 10 mL INTRAVENOUS DIRECTED PRN ALLERGIES Allergen Reactions Augmentin [Amoxicil* Hives Erythromycin Rash Ibuprofen GI Upset PAST SURGICAL HISTORY Procedure Laterality Date PAST SURGICAL HISTORY OF right eye surgery unsure what for. TONSILLECTOMY & ADENOIDECTOMY <AGE 12 04/2010 Dr. Mazariegos TYMPANOSTOMY LOCAL/TOPICAL ANESTHESIA 04/2010 Dr. Mazariegos Physical Exam: OBJECTIVE: Constitutional: Pt is a well developed 22 year old adult who is alert, oriented, cooperative and in no apparent distress. Eyes: Following during examination. No redness or drainage. Respiratory: RR normal and nonlabored. Even breathing. No evidence of distress. Psychology: Patient is engaged during conversation. Normal affect and mood. Does not appear depressed or anxious. NVSI unchanged from previous visit. Dermatological: Nails 1-5 b/l are normal. Webspaces clean and dry 1-4 b/l. Skin appears well hydrated and supple. good color, texture, turgor. No open lesions present. No callosities present. Musculoskeletal/Orthopaedic: Patient has pain to palpation of left lateral ankle along AFTL, and peroneal tendon No laxity with anterior drawer Xrays reviewed. No fracture noted ASSESSMENT: (S93.402A) Sprain of left ankle, unspecified ligament, initial encounter (primary encounter diagnosis) (M76.72) Peroneal tendinitis of left lower extremity PLAN: Reviewed xrays. No acute fracture Suspect soft-tissue sprain. Continue with boot but will allow patient to transition into lace up ankle brace as pain improves Would recommend icing x 2-3x/day. Will make referral to therapy for lateral ankle strengthening. If pain fails to improve, consider mri Sruthi Lilly DPM Patient presents with: Left Foot - Follow Up: follow up xray AMB ROOMING INTAKE FLOWSHEET DATA Pain Pain Level: 10 Pain Location: Foot-Left Description: Sharp Duration Amount of Time: 2 Duration Units: Months Frequency: Continuous Intervention/Comfort measure: Positioning (cold/ ice) Comments: ankle documented in this encounter [facility] 02-03-2023 Miscellaneous Notes Pt calling to update office about her ankle sprain. She states it is very painful. Difficult to bear weight. Has been laying down and elevating. She has been using Tylenol. It is unclear how much she is using the boot. Pt's mother on the call as well. She has appt tomorrow and will wear boot to appt. She also wants to bring in a knee scooter to see if provider would prefer her use that. Reiterated information that was given to patient at last appt. She will continue current plan pending tomorrow's appt unless otherwise instructed. Jimena Sahni documented in this encounter [facility] 02-01-2023 Note [facility] 02-01-2023 Note [facility] 02-01-2023 Note [facility] 02-01-2023 History of Presen t illness Narrative Radiology Service Progress Note PATIENT NAME: Aide Lopez DATE OF SERVICE: February 01, 2023 TIME: 12:45 PM PATIENT IDENTITY VERIFICATION COMPLETED USING TWO (2) IDENTIFIERS: Name and Date of confirmed by patient verbally. FALL SCREENING: Has the patient had 2 falls in the last year or 1 fall with injury or currently using an Ambulatory Assistive Device (Walker, Cane, Wheelchair, Crutches, etc.)? Yes, Patient High Risk for Falls What interventions were put in place to prevent falls during this visit? Increased Observations by Caregivers PATIENT GENDER DATA: Female. status: : No status: NO. PATIENT RELEVANT IMPLANT DATA REVIEWED: Not Applicable RADIOLOGY DEPARTMENT: General X-ray: Exam(s) Completed: Lower Extremity X-Ray(s): Ankle, Left PERIPHERAL IV DATA: Not applicable SIGNED BY: RT Martha(R) February 01, 2023 12:45 PM documented in this encounter [facility] 02-01-2023 Instructions Sruthi Lilly - 02/01/2023 11:45 AM EDT Discussed ankle brace vs boot. Patient elected for boot Recommend 81 mg aspirin twice daily when using boot Pending xrays, may consider brace and physical therapy documented in this encounter [facility] 02-01-2023 History of Presen t illness Narrative Initial Podiatric Office Visit: Chief Complaint: This 22 year old female who presents with chief complaint:left ankle pain HPI Patient presents to clinic for evaluation of left ankle. Patient states that a couple of weeks ago, a trash bag with a broken table in it bumped up against her left ankle. This caused her to experience pain. She states then in December (January 14), she rolled her left ankle. Patient states that she was walking out of the step to go outside and then she rolled her left ankle. Patient developed pain in the left ankle. Despite the pain, she has not had the ankle evaluated until today. She has pain to the left ankle. She is treating with ice, rest and tylenol. 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 Take every 12 hours beginning 48 hours prior to menses and continue for 5 days. TAKE WITH FOOD. Norethindrone, Contraceptive, (ORTHO MICRONOR) 0.35 mg tablet Take 1 tablet by mouth once daily. pantoprazole DR (PROTONIX) 20 mg tablet Take 1 tablet by mouth once daily. beginning 48 hours prior to menses and continue for 5 days while taking Naproxen. sertraline (ZOLOFT) 100 mg tablet Take 1 tablet by mouth once daily. levothyroxine (SYNTHROID) 88 mcg tablet Take 1 tablet by mouth daily before breakfast. nystatin (MYCOSTATIN) powder Apply 1 application to affected area four times daily. triamcinolone (KENALOG) 0.025 % cream Apply 1 application to affected area twice daily. ammonium lactate (LAC-HYDRIN) 12 % cream Apply twice a day to keratosis pilaris on arms, legs as needed acetaminophen (TYLENOL EXTRA STRENGTH) 500 mg tablet Take 1 tablet by mouth every 8 hours as needed for pain. acetaminophen (TYLENOL) 500 mg tablet Take 2 tablets by mouth every 8 hours as needed for pain. CPAP Please fit patient for new mask as well as instruct patient on machine sewer. Cholecalciferol, Vitamin D3, (VITAMIN D-3) 1,000 unit chew Take 1 tablet by mouth once daily. polyethylene glycol 3350 (MIRALAX) 17 gram/dose powder Take 8.5 g by mouth once daily. Mix with 4 ounces of liquid and allow time to dissolve. (1/2 capful = 8.5 g = approx 2 level teaspoons) fluticasone (FLONASE) 50 mcg/actuation nasal spray Use 2 Sprays in each nostril once daily. Rinse mouth after use. (Patient not taking: Reported on 12/17/2022) nystatin (MYCOSTATIN) powder Apply 1 application to affected area four times daily. (Patient not taking: Reported on 11/26/2022) lidocaine (LIDODERM) 5 % Apply 1 Patch as directed once daily. to affected area. Remove patch after 12 hours. (Patient not taking: Reported on 11/26/2022) lidocaine (LIDOCAINE PAIN RELIEF) 4 % patch Apply 1 application as directed every 12 hours as needed. lidocaine (LIDOCAINE PAIN RELIEF) 4 % patch Apply 1 Patch as directed once daily. (Patient not taking: Reported on 11/26/2022) lidocaine (LIDODERM) 5 % Apply 1 Patch as directed every 12 hours. Remove old patch prior to placing new patch. Location: left wrist. Current Facility-Administered Medications Medication Dose Route Frequency perflutren lipid microspheres 1.3 mL in NaCl (PF) 0.9% 10 mL injection (DEFINITY) INTRAVENOUS DIRECTED PRN sodium chloride 0.9 % (flush) 10 mL (BD POSIFLUSH) 10 mL INTRAVENOUS DIRECTED PRN ALLERGIES Allergen Reactions Augmentin [Amoxicil* Hives Erythromycin Rash Ibuprofen GI Upset PAST SURGICAL HISTORY Procedure Laterality Date PAST SURGICAL HISTORY OF right eye surgery unsure what for. TONSILLECTOMY & ADENOIDECTOMY <AGE 12 04/2010 Dr. Mazariegos TYMPANOSTOMY LOCAL/TOPICAL ANESTHESIA 04/2010 Dr. Mazariegos FAMILY HISTORY Problem Relation Age of Onset Asthma Mother other (hearing problem) Mother Heart Father other (paralyzed due to accident) Sister Asthma Maternal Uncle Emphysema Maternal Grandmother Asthma Maternal Grandmother Heart Paternal Grandmother Social History Tobacco Use Smoking status: Never Smokeless tobacco: Never Vaping Use Vaping Use: Never used Substance Use Topics Alcohol use: No Drug use: No REVIEW OF SYSTEMS GENERAL: Negative for Malaise, significant weight loss, fever RESPIRATORY: Negative for cough, wheezing and shortness of breath CARDIOVASCULAR: Negative for chest pain, leg swelling and palpitations GI: Negative for abdominal discomfort, blood in stools or black stools and change in bowel habits : Negative for dysuria, frequency and incontinence MUSCULOSKELETAL: Negative for joint pain or swelling, back pain, and muscle pain. SKIN: Negative for lesions, rash, and itching. HEMATOLOGY/LYMPHOLOGY Negative for prolonged bleeding, bruising easily, and swollen nodes. ENDOCRINE: Negative for cold or heat intolerance, polyuria, polydipsia and goiter. NEURO: negative Physical Exam: Constitutional: Pt is a well developed 22 year old adult who is alert, oriented and cooperative Eyes: Following during examination. No redness or drainage. Respiratory: RR normal and nonlabored. Even breathing. No evidence of distress or shortness of breath. Psychology: Patient is engaged during conversation. Normal affect and mood. Does not appear depressed or anxious during encounter. Vascular: Dorsalis pedis and posterior tibial pulses palpable as b/l Capillary Fill time < 5 seconds to digits 1-5 b/l Skin temperature warm to warm proximal to distal b/l Hair growth present to digits Neurological: intact light touch/epicritic sensation b/l intact protective sensation no significant neurological deficits Dermatological: Nails 1-5 b/l appear elongated. Webspaces clean and dry 1-4 b/l. Skin appears well hydrated and supple. good color, texture, turgor. No open lesions present. Callus present to b/l hallux Musculoskeletal/Orthopaedic: Patient has pain to palpation of left lateral ankle Foot type is neutral structurally AJ ROM is guarded with knee extended and flexed 1st MPJ is full when loaded and no pain or crepitus are noted with ROM. MTJ, STJ are full and free of pain and crepitus. +5/5 muscle strength dorsiflexion, plantarflexion, inversion, eversion b/l Radiographs: ordered ASSESSMENT: (S93.402A) Sprain of left ankle, unspecified ligament, initial encounter (primary encounter diagnosis) (L84) Callus (L60.3) Onychodystrophy PLAN: 1. History and physical examination performed. 2. Discussed sprain of left ankle. Will order xray. Discussed ankle brace but patinet would prefer boot. Discussed risk of dvt while in boot. Can limit risk by taking 81 mg aspirin bid. May warrant therapy pending xray results 3. Callus reduced with dremmel. 4. Toenails 1-5 b/l debrided in length and thickness. Patient informed of criteria governing nail care. She has elected to pursue nail care today. Sruthi Lilly DPM Podiatry [address] [facility] [address] Dept: [phone] Dept AMB ROOMING INTAKE FLOWSHEET DATA Pain Pain Level: 10 Pain Location: Ankle-Left Description: Throbbing, Radiating Duration Amount of Time: 3 Duration Units: Weeks Frequency: Intermittent Intervention/Comfort measure: Medication, Relaxation, Reposition, Cold, Heat Patient presents with: Left Ankle - Established Patient, Pain, Swelling Sruthi Lopez LPN documented in this encounter [facility] 01-21-2023 History of Presen t illness Narrative Images from the original note were not included. [facility] [address] [facility] [facility] [address] Dept: [phone] Dept Chief Complaint Patient presents with Follow-up Left ankle Subjective History of Present Illness: Aide Lopez follows up today for left ankle pain. Since the last visit on 01/13/23, symptoms are worsening. Current symptoms are unable to describe . She states she had multiple falls since the last appointment. Most recent one was yesterday. Rolled the ankle. She rates symptoms as a 10/10 at worst. Imaging to date: X-ray December 2022 Treatment to date: PT/OT/HEP: no Ice: yes, not helpful Heat: no Medications: Tylenol: yes, not helpful NSAIDs: no Oral steroids: no Muscle relaxants: no Nerve medications: no Targeted injections: none Assistive devices: straight cane and wheelchair Fall risk assessment: Less than 65, not applicable Using her moms wheel chair for ambulation, not using her latricia wrap over the contusion area. Objective There were no vitals taken for this visit. Physical Exam: General: Alert, well appearing, no acute distress. Respiratory: Breathing comfortably on room air. No respiratory distress. Skin: Warm, dry, intact. No visible rashes or erythema overlying area of focused exam. Physical Exam Musculoskeletal: Left lower leg: Tenderness (mild) present. No swelling. No edema. Left ankle: Tenderness present over the lateral malleolus (mild). No posterior TF ligament, base of 5th metatarsal or proximal fibula tenderness. Legs: Comments: Ankle stable External Notes No pertinent interval updates Labs No results found for: HGBA1C Lab Results Component Value Date CREATININE 0.55 10/23/2022 Imaging I have personally reviewed the images pertinent to the appointment today EMG/NCT N/A Procedure No procedures completed today Assessment Diagnosis Plan 1. Contusion of left ankle, subsequent encounter Ambulatory referral to Physical Therapy 2. Mild ankle sprain, left, subsequent encounter Ambulatory referral to Physical Therapy Plan Today we discussed the treatment spectrum of this illness/condition. From no change in treatment, to conservative treatments, to aggressive treatments including injections and surgery, and answered questions. We have today selected to proceed with formal physical therapy. Physical therapy will work on muscle range of motion, efficiency, endurance, strength, coordination ,balance and sequencing of neuro-muscular contractions. Physical therapy will set up the schedule of your visits, how many times a week, and will indicate when follow-up is appropriate. If the current course does not prove to be effective over the short term future, schedule a follow-up appointment to discuss and select an alternate course of therapy including possibly of injection, further imaging or surgical referral. No follow-ups on file. Ericka Larkin MD 01/21/2023 10:17 AM Please note that portions of this note may have been completed with voice recognition software. Documentation reviewed prior to signing but minor errors in respiratory medicine physician may have occurred. documented in this encounter [facility] 01-21-2023 Miscellaneous Notes TC to pt. Left a detailed message on a secure line with updates. Anna Gates LPN Can you please call the patient and let her know that she needs to schedule the EMG testing that was ordered from orthopedics, Dr. Galicia. X-ray of the ankle so far has been normal. I would recommend completing this testing to further evaluate possible causes of her symptoms. Mamta Saez APRN.FIELD GEOLOGIST Pt calling states seen Mamta for lft ankle she said she wants a referral sent to [facility] . documented in this encounter [facility] 01-15-2023 Hospital Discharg e instructions Patient Education 01/15/2023 02:11:05 Conjunctivitis, Allergic Conjunctivitis, Allergic Conjunctivitis is an irritation of a thin membrane in the eye. This membrane is called the conjunctiva. It covers the white of the eye and the inside of the eyelid. The condition is often called pink eye or red eye because the eye looks pink or red. The eye can also be swollen. A thick fluid may leak from the eyelid. The eye may itch and burn, and feel gritty or scratchy. Allergic conjunctivitis is caused by an allergen. Allergens are substances that cause the body to react with certain symptoms. Allergens that cause eye irritation include things such as house dust or pollen in the air. This can occur seasonally, most often in the spring. Home care Eye drops may be prescribed to reduce itching and redness. Use these as directed. Otherwise, [id number] decongestant eye drops may be used. Apply a cool compress (towel soaked in cool water) to the affected eye 3 to 4 times a day to reduce swelling and itching. It is common to have mucus drainage during the night, causing the eyelids to become crusted by morning. Use a warm, wet cloth to wipe this away. You may also use saline irrigating solution or artificial tears to rinse away mucus in the eye. Don't patch the eye. You may use acetaminophen or ibuprofen to control pain, unless another medicine was prescribed. (Note: If you have chronic liver or kidney disease, or if you have ever had a stomach ulcer or gastrointestinal bleeding, talk with your healthcare provider before using these medicines.) Don't wear contact lenses until your eyes have healed and all symptoms are gone. Follow-up care Follow up with your healthcare provider, or as advised. When to seek medical advice Call your healthcare provider right away if any of these occur: Increased eyelid swelling New or worsening drainage from the eye Increasing redness around the eye Facial swelling [id number] [employer] [place] [address]. All rights reserved. This information is not intended as a substitute for professional medical care. Always follow your healthcare professional's instructions. Follow Up Care 01/15/2023 01:53:36 With:Your eye doctor Address:Unknown When:5-7 days Comments:Schedule appointment for follow-up if your symptoms persist.Continue eyedrops as previously prescribed by your eye doctor.Use oral antihistamine (Claritin) as prescribed.Return to the ED if symptoms worsen. [facility] 01-15-2023 Note Discharge Instructions Thank you for allowing [facility] to assist you with your healthcare needs. The following is important discharge information regarding your hospital visit. Diagnosis from Today's Visit Eye problem What to Do Next Instructions from Your Care Team No qualifying data available. Post Acute Orders No qualifying data available. You Need to Schedule the Following Appointments Follow Up with Your eye doctor When Within 5-7 days Why: Schedule appointment for follow-up if your symptoms persist. Continue eyedrops as previously prescribed by your eye doctor. Use oral antihistamine (Claritin) as prescribed. Return to the ED if symptoms worsen. Allergies Augmentin (Ibuprofen) erythromycin ibuprofen Medications Please ask your primary doctor or pharmacist before taking any other medication not listed, including over the counter drugs, herbal medications, vitamins and or supplements as they may interact with your home medications. What How Much When Why Instructions Last Dose New loratadine (Claritin 10 mg oral tablet) 1 tab(s) by mouth Once a day Duration: 7 Days Refills: 2 Printed Prescription Unchanged hydrocortisone topical (Hydrocortisone 1% cream) 1 application Topical Two (2) times a day Atopic dermatitis Unchanged levothyroxine (levothyroxine 75 mcg (0.075 mg) oral tablet) 1 tab(s) by mouth Once a day Unchanged naproxen (naproxen 500 mg oral tablet) take 1 tablet by mouth twice a day Please take this list to your next doctor s visit. Bring all medications you take, including over the counter medications, herbals and other supplements with you to your doctor s visit. Patients and families are reminded to discard old lists and to update any records with all medication providers or retail pharmacies. Education Materials Conjunctivitis, Allergic Conjunctivitis is an irritation of a thin membrane in the eye. This membrane is called the conjunctiva. It covers the white of the eye and the inside of the eyelid. The condition is often called pink eye or red eye because the eye looks pink or red. The eye can also be swollen. A thick fluid may leak from the eyelid. The eye may itch and burn, and feel gritty or scratchy. Allergic conjunctivitis is caused by an allergen. Allergens are substances that cause the body to react with certain symptoms. Allergens that cause eye irritation include things such as house dust or pollen in the air. This can occur seasonally, most often in the spring. Home care Eye drops may be prescribed to reduce itching and redness. Use these as directed. Otherwise, [id number]-[id number] decongestant eye drops may be used. Apply a cool compress (towel soaked in cool water) to the affected eye 3 to 4 times a day to reduce swelling and itching. It is common to have mucus drainage during the night, causing the eyelids to become crusted by morning. Use a warm, wet cloth to wipe this away. You may also use saline irrigating solution or artificial tears to rinse away mucus in the eye. Don't patch the eye. You may use acetaminophen or ibuprofen to control pain, unless another medicine was prescribed. (Note: If you have chronic liver or kidney disease, or if you have ever had a stomach ulcer or gastrointestinal bleeding, talk with your healthcare provider before using these medicines.) Don't wear contact lenses until your eyes have healed and all symptoms are gone. Follow-up care Follow up with your healthcare provider, or as advised. When to seek medical advice Call your healthcare provider right away if any of these occur: Increased eyelid swelling New or worsening drainage from the eye Increasing redness around the eye Facial swelling [id number] [employer]. [address] [place] [address] [place] [address]. All rights reserved. This information is not intended as a substitute for professional medical care. Always follow your healthcare professional's instructions. Additional Information VACCINATE! IT SAVES LIVES! Members of the community who have not yet received the COVID-19 vaccine and would like to receive it can visit one of [facility] vaccine clinics. There are many vaccine clinic locations within the [facility]. For locations and available times, please visit [email or web address] [email or web address] It is important to note that some COVID mobile vaccine clinics are held outdoors and may be canceled in rainy or stormy conditions. To learn more about pediatric vaccinations (ages 5-11), we invite you to visit the [facility] webpage. https://www.[employer].org/p ages/3448-Ongdc-Rutpajyixgb-Freq eqxuty-Tnaga-Vdubrzdca.html To learn more about the COVID-19 vaccine, we invite you to visit the CDC website for a list of frequently asked questions. https://www.cdc.gov/coronavirus/ 2019-ncov/vaccines/faq.html [facility] [employer] Patient Portal Access Instructions: Stay connected with your healthcare team and access your personal medical information anytime with the [facility] Patient Portal. If you would like a full copy of your medical records please contact the [facility] Medical Records Department Wednesday through Wednesday between 8a.m. and 4:30p.m. Please follow the directions below to access the portal: 1.Access the email account you provided upon registration to the [facility].2.Look for an invitation email from [facility].3.Open the email and access the invitation link: Accept Invitation to [facility] [employer]4.Fill in the required harrington to create your account. Sign into www.[email or web address] with your username and password that you created in the above steps to stay up to date. You can then view a summary of results, a summary of your visits, and the ability to download your summaries to your computer or send the information securely to a physician. Remember that your healthcare information is confidential, so carefully consider who you will allow to register on the [facility] [employer] Patient Portal for access to your information. You can also access the [employer] Patient Portal on the Care Team Connect adrianna. Simply click on Health Records under Health Data and then click on the [facility] logo. HOW TO SAFELY DISPOSE OF PRESCRIPTION MEDICATIONS Please use one of the following methods to safely dispose of your unused medications. 1.Use a drug disposal kit: the drug disposal pouch allows you to safely discard your old and unused drugs. Ask your nurse to give you one when you are discharged.2.Visit a local take-back location: Many local pharmacies and police departments have programs that collect old and unwanted prescription drugs. Call your local pharmacy or go to http://Gold Lasso.[employer]/8R5Yy3p to find one close to you.3.Make use of household items: Use cat litter or old coffee grounds to dispose medications if other options are not available. Mix your drugs with these household products, seal them in an airtight container and throw it into the garbage. Call [facility]: [phone] to be sure your drugs can be disposed of in this way. Some medicines may require a different approach.4.Never flush your medications down the toilet. IF YOU HAVE BEEN PRESCRIBED AN OPIOIDS FOR PAIN If you have been prescribed an opioid (such as hydrocodone, oxycodone or morphine), it is critical to understand the possible side effects and risks of opioid pain medications. Even when taken as directed, opioids can have several side effects including: Tolerance, meaning you might need to take more of a medication for the same pain relief. Nausea, vomiting and/or constipation. Sleepiness, dizziness, dry mouth, confusion, depression or itching. Physical dependence, meaning you have withdrawal symptoms when a medication is stopped ? this can develop within a few days. KNOW YOUR RESPONSIBILITIES It is important to know exactly how much and how often to take the opioid pain medications you are prescribed. Never take opioids in higher amounts or more often than prescribed. Do not combine opioids with alcohol or other drugs that cause drowsiness, such as benzodiazepines, also known as benzos, including diazepam and alprazolam, muscle relaxants or sleep aids. Never sell or share prescription opioids. This is illegal. Store opioids in a secure place and out of reach of others (including children, family, friends and visitors). The last page(s) of this document has been signed and retained as a CHART COPY Signatures Patient Education Materials Conjunctivitis, Allergic Medication Leaflets My discharge plan and instructions have been reviewed and explained to me and I,AIDE LOPEZ understand my current condition and have read and understand these discharge instructions. I have received a written copy of the plan/instructions. If I have questions, I am aware that I should contact my doctor. 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 [facility] [address] [facility] [address] [facility] [address] Dept: [phone] Dept Chief Complaint Patient presents with Ankle Pain Left ankle Subjective History of Present Illness: Aide Lopez is a 22 y.o. female who presents today for evaluation of left ankle pain. Was carrying a table - hit ankle from the lateral side, did not sprain the ankle. Has been able to ambulate 10 feet without severe pain. Location: lateral Onset: about 4-5 days ago Injury: yes - was carrying a table and dropped it- hitting left ankle. Work related? no Quality: aching, throbbing Mechanical symptoms: no Radiation of symptoms: no Severity: mild to moderate Exacerbating factor(s): any weight bearing activities Relieving factor(s): rest and activity modification Timing: all day Evaluation: in the ER was told to keep her appt here and we would do the evaluation, was given and latricia wrap. No imaging there. [facility] Imaging to date: today at appt Treatment to date: PT/OT/HEP: no Ice: yes, helpful- temp Heat: no Medications: Tylenol: yes, helpful NSAIDs: no Oral steroids: no Muscle relaxants: no Nerve medications: no Targeted injections: none Assistive devices: none Prior surgery: no Occupation: not working right now Objective There were no vitals taken for this visit. Physical Exam: General: Alert, well appearing, no acute distress. Respiratory: Breathing comfortably on room air. No respiratory distress. Skin: Warm, dry, intact. No visible rashes or erythema overlying area of focused exam. Physical Exam Musculoskeletal: Left ankle: Swelling (mild) present. No deformity or ecchymosis. Tenderness (point of impact with the table) present over the lateral malleolus. No medial malleolus, ATF ligament, posterior TF ligament or proximal fibula tenderness. Decreased range of motion (secondary ot pain). Anterior drawer test negative. Normal pulse. Left Achilles Tendon: No tenderness. Left foot: No swelling. Legs: External Notes No pertinent interval updates, out of system Labs No results found for: HGBA1C Lab Results Component Value Date CREATININE 0.55 10/23/2022 Imaging Images reviewed with patient today I have personally reviewed the images pertinent to the appointment today Discussed EMG/NCT N/A Procedure No procedures completed today Assessment Diagnosis Plan 1. Contusion of left ankle, initial encounter 2. Severe ankle sprain, left, initial encounter XR ankle 3+ views left Plan Discussed care of contusion lateral ankle including bone bruise to this area. May use cane as needed, maximize vitamin d and recheck in 3-4 if needed. No follow-ups on file. Ericka Larkin MD 01/13/2023 11:40 AM Please note that portions of this note may have been completed with voice recognition software. Documentation reviewed prior to signing but minor errors in respiratory medicine physician may have occurred. documented in this encounter [facility] 01-13-2023 Instructions Ericka Larkin MD - 01/13/2023 11:15 AM EDT Take 10,000 units daily for 6 weeks Use the cane and an latricia wrap as needed for comfort. The following attachments cannot be sent through Care Everywhere.Contusion Discharge Instructions (Albanian)documented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 HospitalIn the event this information is protected by the Federal Confidentiality of Alcohol and Drug Abuse Patient Records regulations: The Federal rules restrict any use of the information to criminally investigate or prosecute any alcohol or drug abuse patient.[facility] HospitalIn the event this information is protected by the Federal Confidentiality of Alcohol and Drug Abuse Patient Records regulations: The Federal rules restrict any use of the information to criminally investigate or prosecute any alcohol or drug abuse patient.[facility] HospitalIn the event this information is protected by the Federal Confidentiality of Alcohol and Drug Abuse Patient Records regulations: The Federal rules restrict any use of the information to criminally investigate or prosecute any alcohol or drug abuse patient.[facility] HospitalIn the event this information is protected by the Federal Confidentiality of Alcohol and Drug Abuse Patient Records regulations: The Federal rules restrict any use of the information to criminally investigate or prosecute any alcohol or drug abuse patient.[facility] HospitalIn the event this information is protected by the Federal Confidentiality of Alcohol and Drug Abuse Patient Records regulations: The Federal rules restrict any use of the information to criminally investigate or prosecute any alcohol or drug abuse patient.[facility] HospitalIn the event this information is protected by the Federal Confidentiality of Alcohol and Drug Abuse Patient Records regulations: The Federal rules restrict any use of the information to criminally investigate or prosecute any alcohol or drug abuse patient.[facility] FOR RECORDS PERTAINING TO PATIENTS WHO ARE OR HAVE BEEN ENROLLED IN A CHEMICAL DEPENDENCY/SUBSTANCEABUSE PROGRAM, SOME INFORMATION MAY BE OMITTED. This clinical summary was aggregated from multiple sources. Caution should be exercised in using it in the provision of clinical care. This summary normalizes information from multiple sources, and as a consequence, information in this document may materially change the coding, format and clinical context of patient data. In addition, data may be omitted in some cases. CLINICAL DECISIONS SHOULD BE BASED ON THE PRIMARY CLINICAL RECORDS. [facility] [employer] [facility]. provides no warranty or guarantee of the accuracy or completeness of information in this document.
--- OUTSIDE RECORDS SUMMARY | 2023-10-11 03:04 | XMS RPT_ITS | CCD ---
Author Name Unknown Address [address] [place] [address] Organization [facility] Care Team Providers Care Candle Maker Name Role Phone Unavailable Primary Care Provider UnavailKavya Noyola Primary Care Provider [phone] OBED ECHEVARRIA, DR DONG Primary Care Physician [phone] Kavya Veras Primary Care Provider [phone] ERICKA MANZANO Referring Unavailable KAVYA VERAS Primary Care Unavailable KAVYA VERAS Primary Care Unavailable KAVYA VERAS Primary Care Unavailable ANGIE COTTER Attending Unavailable Iker Clay MD Primary Care Provider [phone] MILAN MENESES Attending Unavailable IKER CLAY Primary Care Unavailable YARA GALICIA Referring Unavailable IKER CLAY Primary Care Unavailable OBED ECHEVARRIA, DR DONG Primary Care Unavailab Rajiv ECHEVARRIA, CAMACHO Banerjee Attending Unavail KIMBERLY Sands DO Attending Nadira CLAY MD, DR DONG Primary Care Unavailab Jl ECHEVARRIA, LULA Attending Unavailable OBED ECHEVARRIA, DR DONG Primary Care Unavailab Joe ECHEVARRIA, DR ELVIA Lopez Attending Unavailable OBED ECHEVARRIA, DR DONG Primary Care Unavailab DICK Ye DO Attending Unavailable OBED ECHEVARRIA, DR DONG Primary Care Unavailab Kolton LANZA, DR CANDELARIA Lopez Attending Unavailable OBED ECHEVARRIA, DR DONG Primary Care Unavailab Rajiv ECHEVARRIA, CAMACHO Banerjee Attending Unavail lizzette CLAY MD, DR DONG Primary Care Unavailab Teresa ECHEVARRIA, DR DONG Primary Care Unavailab Kolton LANZA, DR CANDELARIA Lopez Attending Unavailable OBED ECHEVARRIA, DR DONG Primary Care Unavail le violent upsets. Gastroenteritis may be confused with [...] as tea, flat jose l alphonso or lemon-pa[place] harbor soda, broth and gelatin. -If liquids are [...] decreased urination, develop. 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 - Continue supportive [...] discussed and patient voices understanding. Mamta Saez APRN.MARBLE MECHANIC HELPER This note was partially generated using CatchTheEye voice recognition system. Note was reviewed for accuracy. There may be minor misspellings or grammar miscues with CatchTheEye voice recognition. documented in this encounter [facility] 05-11-[address] [facility] 05-11-2023 Note HNO ID: [id number] Author: Raissa Mooney RN Service: ? Author Type: ? Type: Progress Notes Filed: 05/13/2023 7:49 AM Note Text: Patient presents with: Right Great Toe - Follow Up, Nail Check Patient is with her legal guardian Prabha Amado. [facility] 05-11-2023 Instructions Jama Lilly - 05/11/2023 4:05 PM EDT Recommend wearing lace up tennis shoe, ie asics, new balance or hoka or alvarado. Avoid sandals or crocks or hey dudes Wear heel lift to both shoes Ice ankle x 10 minutes twice daily. Recommend topical antibotic cream to left leg Stop picking at scabs documented in this encounter [facility] 05-11-2023 History of Presen t illness [...] 5.6 4.3 - 5.6 % Final Comment: [place] [employer] guidelines indicate that patients with HgbA1c in the range 5.7-6.4% are at increased risk for development of diabetes, and intervention by lifestyle modification may be beneficial. HgbA1c greater or equal to 6.5% is considered diagnostic of diabetes. 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 lidocaine (LIDOCAINE PAIN RELIEF) 4 % patch [...] the scab. Continue with topical antibiotic cream Jama Lilly DPM Patient presents with: Right Great Toe - Follow Up, Nail Check Patient is with her legal guardian Prabha Amado. documented in this encounter [facility] 05-03-[address] [facility] 05-03-[address] [facility] 05-03-2023 Note HNO ID: [id number] Author: Elisabeth Patterson RN Service: ? Author Type: Registered Nurse Type: Progress Notes Filed: 05/04/2023 7:28 AM Note Text: Patient presents with: Right Foot - Established Patient: Growth on bottom of foot [facility] 05-03-2023 History of Presen t illness Narrative [...] 5.6 4.3 - 5.6 % Final Comment: [place] [employer] guidelines indicate that patients with HgbA1c in the range 5.7-6.4% are at increased risk for development of diabetes, and intervention by lifestyle modification may be beneficial. HgbA1c greater or equal to 6.5% is considered diagnostic of diabetes. 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 lidocaine (LIDOCAINE PAIN RELIEF) 4 % patch [...] bottom of foot documented in this encounter [facility] 04-27-[address] [facility] 04-27-2023 History of Presen t illness Narrative Episode Visit Count: 3 Therapist That Will Accept/Oversee The Plan Of Care: Marlon Cerrato Start of Care Date: 03/22/23 Onset Date: [...] Minutes (timed/untimed): 29 Session Start Time : 1741 Session Stop Time : 1810 Pt arrives 10 min late to this appointment Marlon Cerrato PT documented in this encounter [facility] 04-25-2023 Miscellaneous Notes Left message for patient with negative results and recommendations.Hillary Weber LPN Call patient and let her know her urine culture did not reveal any significant bacterial growth indicating UTI. If antibiotic is helping, she may finish it. If it is not helping, she may discontinue it. Follow-up with PCP. documented in this encounter [facility] 04-23-[address] [facility] 04-22-2023 Miscellaneous Notes Per phone notes, TC to Prabha patients guardian to obtain medical information for patients upcoming appointment. Prabha states patient was in an accident in January and seen at [facility], headaches have been happening since then (about 3 months). Of note, Prabha was not aware that patient had scheduled appointment and was asking about the date and time. Prabha was unable to provide any detailed medical information, stating that doctors at [facility] told her headaches could be from head [...] Michelle Carolina LPN documented in this encounter [facility] 04-22-2023 Hospital Discharg e instructions Patient [...] foods again, start with small amounts of vxre-fk-ipdpdb, low-fat foods. These include apple sauce, toast, [...] increase stomach acid. Don't use aspirin or sahs-lmt-qfqjfed pain and fever medicines, if possible. This includes nonsteroidal anti-inflammatory drugs (NSAIDs). Lose excess weight. Finish eating at least 2 hours before you go to bed or lie down. Raise the head of your bed. 9086-1037 [employer]. [address] [place] [address]. All rights reserved. This information is not intended as a substitute for professional medical care. Always follow your healthcare professional's instructions. Follow Up Care 04/21/2023 21:43:45 With:IKER CLAY MD Address: [address] [place] [address]- When:2-4 days [facility] 04-21-2023 Note Discharge Instructions Thank you for allowing [facility] to assist you with your healthcare needs. The following is important discharge information regarding your hospital visit. Diagnosis from Today's Visit Abdominal pain What to Do Next Instructions from Your Care Team No qualifying data available. Post Acute Orders No qualifying data available. You Need to Schedule the Following Appointments Follow Up with IKER CLAY MD When Within 2-4 days Where: [address] [place] [address]- Allergies Augmentin (Ibuprofen) erythromycin ibuprofen [...] foods again, start with small amounts of hlho-yk-yqczdx, low-fat foods. These include apple sauce, toast, [...] increase stomach acid. Don't use aspirin or wuqf-fik-ctqgknx pain and fever medicines, if possible. This includes nonsteroidal anti-inflammatory drugs (NSAIDs). Lose excess weight. Finish eating at least 2 hours before you go to bed or lie down. Raise the head of your bed. 7741-5550 [employer]. [address] [place] [address], [place] [address]. All rights reserved. This information is not intended as a substitute for professional medical care. Always follow your healthcare professional's instructions. Additional Information VACCINATE! IT SAVES LIVES! Members of the community who have not yet received the COVID-19 vaccine and would like to receive it can visit one of [facility] vaccine clinics. There are many vaccine clinic locations within the [facility]. For locations and available times, please visit [email or web address] [email or web address] It is important to note that some COVID mobile vaccine clinics are held outdoors and may be canceled in rainy or stormy conditions. To learn more about pediatric vaccinations (ages 5-11), we invite you to visit the [facility] webpage. https://www.akgov[facility]als.org/p ages/8790-Lgsmw-Dcfwpedfmqk-Freq dmxzzh-Sdbff-Kqqlnuxyj.html To learn more about the COVID-19 vaccine, we invite you to visit the CDC website for a list of frequently asked questions. https://www.cdc.gov/coronavirus/ 2019-ncov/vaccines/faq.html [facility] Patient Portal Access Instructions: Stay connected with your healthcare team and access your personal medical information anytime with the [employer] Patient Portal. If you would like a full copy of your medical records please contact the [facility] Medical Records Department Wednesday through Wednesday between 8a.m. and 4:30p.m. Please follow the directions below to access the portal: 1.Access the email account you provided upon registration to the [facility].2.Look for an invitation email from [facility].3.Open the email and access the invitation link: Accept Invitation to [facility].Fill in the required harrington to create your account. Sign into [email or web address] with your username and password that you [...] you will allow to register on the [facility] Patient Portal for access to your information. You can also access the [facility] Patient Portal on the [employer] adrianna. Simply click on Health Records under Health Data and then click on the Clue App logo. HOW TO SAFELY DISPOSE OF PRESCRIPTION [...] Call your local pharmacy or go to http://[email or web address]/[email or web address] to find one close to you.3.Make use of household items: Use cat litter or old coffee grounds to dispose medications if other options are not available. Mix your drugs with these household products, seal them in an airtight container and throw it into the garbage. Call [facility]: [phone] to be sure your drugs can be [...] aware that I should contact my doctor. Patient/Soyfreeze Operator Signature: Date/Time: Relationship to Patient: Witness Name/Signature: Date/Time: [facility] 04-12-2023 Miscellaneous Notes Fall was yesterday 04-11-23 not 04-07-23. Jimena Bangura LPN Pt called in and requested to have the referral to Ortho faxed to [facility] Benitez. Hand pain and swelling. Pt was seen in the office today 04-12-23 after having a fall yesterday 04/07/23 and 03-30-23. Done. Jimena PATTERSON documented in this encounter [facility] 04-12-[address] [facility] 04-12-2023 History of Presen t illness Narrative [...] her dog in the garage. Went to [facility] on April 09, had x-ray of left [...] orthopedics. She would like to go to [facility] where her mother is going. Past medical history, appointments, medications, allergies reviewed. EXAM: BP 126/82 Pulse 76 Resp 16 Wt 122.9 kg (271 lb) LMP 03/27/2023 BMI 44.41 kg/m General Appearance: Well appearing, alert, in no acute distress, well-hydrated, well nourished.. Musculoskeletal: Left hand: She is able to freely move her fingers without difficulty. 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 She would like to go to [facility]. She will make appointment. - CONSULT TO ORTHOPAEDICS Al Garza APRN.COOPER This note was partly generated using CatchTheEye voice recognition dictation and may contain some misspelled or inaccurate words missed on review. documented in this encounter [facility] 04-09-2023 Miscellaneous Notes Pt notified of results via [employer] Mary Spaulding Ma Can you please call the patient and let her know that I reviewed her x-ray results. X-rays of both the hand and shoulder were all normal. No fractures, dislocations, or any other abnormalities were noted. She may continue supportive care at home. Please let me know if she has any questions. Thank you. Mamta Saez APRN.MARBLE MECHANIC HELPER documented in this encounter [facility] 04-07-[address] [facility] 04-07-[address] [facility] 04-07-2023 Instructions Mamta Saez APRN.COOPER - 04/07/2023 11:42 AM EDT Get xray completed today Continue with supportive care at home Ice, elevate, wear brace that was provided. Follow up pending test results. 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 lidocaine (LIDOCAINE PAIN RELIEF) 4 % patch [...] APRN.COOPER This note was partially generated using CatchTheEye voice recognition system. Note was reviewed for accuracy. There may be minor misspellings or grammar miscues with CatchTheEye voice recognition. documented in this encounter [facility] 04-06-[address] 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 [...] expected course of illness Silvia Mireles APRN.CNP R.I.C.E. The general care of your injury [...] when lying down. documented in this encounter [facility] 04-06-[address] [facility] 04-06-2023 Miscellaneous Notes Patient present to office today for other appointment in different dept. Patient states dog ate speed pro brace. This nurse provided size Large brace to patient and notified rep. Of situation. Sruthi Lopez LPN documented in this encounter [facility] 04-06-2023 History of Presen t illness Narrative Episode Visit Count: 2 Therapist That Will Accept/Oversee The Plan Of Care: Marlon Cerrato Start of Care Date: 03/22/23 Onset Date: [...] 15 min late for this appointment Marlon Cerrato PT documented in this encounter [facility] 04-02-2023 Miscellaneous Notes Pt viewed message with no further response.Anabella Andrade LPN ' Message sent to pt, when she was seen in the office on 12/17/22 refills were given. Will await further response from pt.Anabella Andrade LPN documented in this encounter [facility] 04-02-2023 Miscellaneous Notes OK to refill as ordered Iker Clay MD Patient phones requesting refills as follows: [...] Anna Gates LPN documented in this encounter [facility] 04-01-[address] [facility] 03-31-[address] [facility] 03-31-[address] 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 Dictated by : MD Rick AMAYA APRN.MARBLE MECHANIC HELPER documented in this encounter [facility] 03-29-2023 Hospital Discharg e instructions Patient [...] alternate ice and heat. You may use ieqw-yqp-uszxnmq pain medicine to control pain, unless another [...] numb, or tingly Pain or swelling increases 4148-8876 [employer]. [address] [place] [address]. All rights reserved. This information is not intended as a substitute for professional medical care. Always follow your healthcare professional's instructions. Follow Up Care 03/28/2023 22:10:33 With:IKER CLAY MD Address: [address] [place] [address]- When:2-4 days [facility] 03-28-2023 Note Discharge Instructions Thank you for allowing [facility] to assist you with your healthcare needs. The following is important discharge information regarding your hospital visit. What to Do Next Instructions from Your Care Team No qualifying data available. Post Acute Orders No qualifying data available. You Need to Schedule the Following Appointments Follow Up with IKER CLAY MD When Within 2-4 days Where: [address] [place] [address]- Allergies Augmentin (Ibuprofen) erythromycin ibuprofen Medications Please [...] alternate ice and heat. You may use sksd-oou-quvepiy pain medicine to control pain, unless another [...] numb, or tingly Pain or swelling increases 0549-3791 [employer]. [address] [place] [address], [place] [address]. All rights reserved. This information is not intended as a substitute for professional medical care. Always follow your healthcare professional's instructions. Additional Information VACCINATE! IT SAVES LIVES! Members of the community who have not yet received the COVID-19 vaccine and would like to receive it can visit one of [facility] vaccine clinics. There are many vaccine clinic locations within the [facility]. For locations and available times, please visit www.[email or web address] gov/. It is important to note that some COVID mobile vaccine clinics are held outdoors and may be canceled in rainy or stormy conditions. To learn more about pediatric vaccinations (ages 5-11), we invite you to visit the [facility] webpage. https://www.[facility].org/p ages/9571-Qvvtc-Ekcmsvnvqjz-Freq symvtw-Gbuzg-Oykxmqkrv.html To learn more about the COVID-19 vaccine, we invite you to visit the CDC website for a list of frequently asked questions. https://www.cdc.gov/coronavirus/ 2019-ncov/vaccines/faq.html [facility] Patient Portal Access Instructions: Stay connected with your healthcare team and access your personal medical information anytime with the [facility] Patient Portal. If you would like a full copy of your medical records please contact the [facility] Medical Records Department Wednesday through Wednesday between 8a.m. and 4:30p.m. Please follow the directions below to access the portal: 1.Access the email account you provided upon registration to the [facility].2.Look for an invitation email from [facility].3.Open the email and access the invitation link: Accept Invitation to [facility]4.Fill in the required harrington to create your account. Sign into [email or web address] with your username and password that you [...] you will allow to register on the [facility] Patient Portal for access to your information. You can also access the [facility] Patient Portal on the [employer] adrianna. Simply click on Health Records under [...] Call your local pharmacy or go to http://Shoebox.Enteye/0X5Df5y to find one close to you.3.Make use of household items: Use cat litter or old coffee grounds to dispose medications if other options are not available. Mix your drugs with these household products, seal them in an airtight container and throw it into the garbage. Call [facility]: [phone] to be sure your drugs can be [...] aware that I should contact my doctor. Patient/Soyfreeze Operator Signature: Date/Time: Relationship to Patient: Witness Name/Signature: Date/Time: [facility] 03-28-2023 Emergency department Discharge summary Discharge Instructions Thank you for allowing [facility] to assist you with your healthcare needs. [...] the Following Appointments Follow Up with IKER CLAY MD When Within 2-4 days Where: [address] [place] [address]- Allergies Augmentin (Ibuprofen) erythromycin ibuprofen Medications Please [...] alternate ice and heat. You may use gikz-xok-gatsavq pain medicine to control pain, unless another [...] numb, or tingly Pain or swelling increases 5817-0211 [employer]. [address] [place] [address]. All rights reserved. This information is not intended as a substitute for professional medical care. Always follow your healthcare professional's instructions. Additional Information VACCINATE! IT SAVES LIVES! Members of the community who have not yet received the COVID-19 vaccine and would like to receive it can visit one of [facility] vaccine clinics. There are many vaccine clinic locations within the [facility]. For locations and available times, please visit www.[email or web address] gov/. It is important to note that some COVID mobile vaccine clinics are held outdoors and may be canceled in rainy or stormy conditions. To learn more about pediatric vaccinations (ages 5-11), we invite you to visit the [facility] webpage. https://www.[facility].org/p ages/4532-Jvtzh-Yyzxnezzbas-Freq njduwo-Lopnp-Snpwiqsbu.html To learn more about the COVID-19 vaccine, we invite you to visit the CDC website for a list of frequently asked questions. https://www.cdc.gov/coronavirus/ 2019-ncov/vaccines/faq.html [facility] Patient Portal Access Instructions: Stay connected with your healthcare team and access your personal medical information anytime with the [employer] Patient Portal. If you would like a full copy of your medical records please contact the [facility] Medical Records Department Wednesday through Wednesday between 8a.m. and 4:30p.m. Please follow the directions below to access the portal: 1.Access the email account you provided upon registration to the hospital.2.Look for an invitation email from [facility].3.Open the email and access the invitation link: Accept Invitation to [facility] [employer]4.Fill in the required harrington to create your account. Sign into [email or web address].Infer with your username and password that you [...] you will allow to register on the [facility] Patient Portal for access to your information. You can also access the [facility] Patient Portal on the [employer] adrianna. Simply click on Health Records under Health Data and then click on the Clue App logo. HOW TO SAFELY DISPOSE OF PRESCRIPTION [...] Call your local pharmacy or go to http://Shoebox.Enteye/4Q0My4n to find one close to you.3.Make use of household items: Use cat litter or old coffee grounds to dispose medications if other options are not available. Mix your drugs with these household products, seal them in an airtight container and throw it into the garbage. Call [facility]: [phone] to be sure your drugs can be [...] aware that I should contact my doctor. Patient/Soyfreeze Operator Signature: Date/Time: Relationship to Patient: Witness Name/Signature: Date/Time: [facility] 03-22-[address] [facility] 03-22-[address] [facility] 03-22-[address] [facility] 03-22-[address] [facility] 03-22-[address] [facility] 03-22-2023 History of Presen t illness Narrative Episode Visit Count: 1 Therapist That Will Accept/Oversee The Plan Of Care: Marlon Cerrato Start of Care Date: 03/22/23 Onset Date: [...] report being able to walk without pain [place] in home exercise program. Perform stair negotiation without pain. Increased strength of L ankle to 4+/5 or greater for return to PLOF Patient Goals: Improve pain Planned Interventions, Frequency, and Duration: Current Frequency: 1x/week Duration: 4 weeks Total Number of Visits Planned: 4 Planned Treatment Interventions: Therapeutic exercise (14338), Neuromuscular re-education (10961), Manual therapy (56472), Self-long term management (95235), Gait Training (59072), Patient/Family/Caregiver Education PLAN FOR NEXT VISIT: Assess [...] awhile now. Getting a nerve test at [facility]. Pain with stair negotiation and walking at [...] Total Treatment Time Minutes (timed/untimed): 46 Marlon Cerrato PT documented in this encounter [facility] 03-22-2023 History of Presen t illness [...] 2023 3:18 PM documented in this encounter [facility] 03-22-2023 History of Presen t illness [...] 5.6 4.3 - 5.6 % Final Comment: [place] [employer] guidelines indicate that patients with HgbA1c in the range 5.7-6.4% are at increased risk for development of diabetes, and intervention by lifestyle modification may be beneficial. HgbA1c greater or equal to 6.5% is considered diagnostic of diabetes. 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 Cholecalciferol, Vitamin D3, (VITAMIN D-3) 1,000 unit [...] of compound w or follow-up for debridement. Jama Testrake, DPM AMB ROOMING INTAKE FLOWSHEET DATA Pain [...] Sruthi Lopez LPN documented in this encounter [facility] 03-22-2023 Instructions Jama Lilly - 03/22/2023 2:25 PM EDT Ankle sprain: appears to be improving. Ok to transition out of boot into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 Clay MD [address] [place] [address] PCP - General Family Medicine 01/31/21 Candle Maker Relationship Specialty Start Date End Date Iker Clay MD [address] [facility] [place] [address] PCP - General Family Medicine 01/31/21 Candle Maker Relationship Specialty Start Date End Date Iker Clay MD [address] [facility] [place] [address] PCP - General Family Medicine 01/31/21 Candle Maker Relationship Specialty Start Date End Date Iker Clay MD [address] [facility] [place] [address] PCP - General Family Medicine 01/31/21 Candle Maker Relationship Specialty Start Date End Date Iker Clay MD [address] [facility] [place] [address] PCP - General Family Medicine 01/31/21 Candle Maker Relationship Specialty Start Date End Date Iker Clay MD [address] [facility] [place] [address] PCP - General Family Medicine 01/31/21 Candle Maker Relationship Specialty Start Date End Date Iker Clay MD [address] [facility] [place] [address] PCP - General Family Medicine 01/31/21 Candle Maker Relationship Specialty Start Date End Date Iker Clay MD [address] [facility] [place] [address] PCP - General Family Medicine 01/31/21 Candle Maker Relationship Specialty Start Date End Date Iker Clay MD [address] [facility] [place], [place] [address] PCP - General Family Medicine 01/31/21 Candle Maker Relationship Specialty Start Date End Date Iker Clay MD [address] [facility] [place], [place] [address] PCP - General Family Medicine 01/31/21 Candle Maker Relationship Specialty Start Date End Date Iker Clay MD [address] [facility] [place], [place] [address] PCP - General Family Medicine 01/31/21 Candle Maker Relationship Specialty Start Date End Date Iker Clay MD [address] [facility] [place], [place] [address] PCP - General Family Medicine 01/31/21 INFORMATION SOURCE (unrecogn ized section and content) DATE CREATED AUTHOR AUTHOR'S ORGANIZ ATION 01/18/2023 [facility] DATE CREATED AUTHOR AUTHOR'S ORGANIZ ATION 08/07/2023 [facility] DATE CREATED AUTHOR AUTHOR'S ORGANIZ ATION 08/31/2023 [facility] ([place]) DATE CREATED AUTHOR AUTHOR'S ORGANIZ ATION 10/03/2023 [facility] DATE CREATED AUTHOR AUTHOR'S ORGANIZ ATION 10/09/2023 [facility] Source Comments (unrecognize d section and content) In the event this informatio n is protected by the Federal Confidentiality of Alcohol and Drug Abuse Patient Records regulations: The Federal rules restrict any use of the information to criminally investigate or prosecute any alcohol or drug abuse patient.[facility] the event this information is protected by the Federal Confidentiality of Alcohol and Drug Abuse Patient Records regulations: The Federal rules restrict any use of the information to criminally investigate or prosecute any alcohol or drug abuse patient.[facility] HospitalIn the event this information is protected by the Federal Confidentiality of Alcohol and Drug Abuse Patient Records regulations: The Federal rules restrict any use of the information to criminally investigate or prosecute any alcohol or drug abuse patient.[facility] HospitalIn the event this information is protected by the Federal Confidentiality of Alcohol and Drug Abuse Patient Records regulations: The Federal rules restrict any use of the information to criminally investigate or prosecute any alcohol or drug abuse patient.[facility] HospitalIn the event this information is protected by the Federal Confidentiality of Alcohol and Drug Abuse Patient Records regulations: The Federal rules restrict any use of the information to criminally investigate or prosecute any alcohol or drug abuse patient.[facility] HospitalIn the event this information is protected by the Federal Confidentiality of Alcohol and Drug Abuse Patient Records regulations: The Federal rules restrict any use of the information to criminally investigate or prosecute any alcohol or drug abuse patient.[facility] HospitalIn the event this information is protected by the Federal Confidentiality of Alcohol and Drug Abuse Patient Records regulations: The Federal rules restrict any use of the information to criminally investigate or prosecute any alcohol or drug abuse patient.[facility] HospitalIn the event this information is protected by the Federal Confidentiality of Alcohol and Drug Abuse Patient Records regulations: The Federal rules restrict any use of the information to criminally investigate or prosecute any alcohol or drug abuse patient.[facility] HospitalIn the event this information is protected by the Federal Confidentiality of Alcohol and Drug Abuse Patient Records regulations: The Federal rules restrict any use of the information to criminally investigate or prosecute any alcohol or drug abuse patient.[facility] HospitalIn the event this information is protected by the Federal Confidentiality of Alcohol and Drug Abuse Patient Records regulations: The Federal rules restrict any use of the information to criminally investigate or prosecute any alcohol or drug abuse patient.[facility] HospitalIn the event this information is protected by the Federal Confidentiality of Alcohol and Drug Abuse Patient Records regulations: The Federal rules restrict any use of the information to criminally investigate or prosecute any alcohol or drug abuse patient.[facility] HospitalIn the event this information is protected by the Federal Confidentiality of Alcohol and Drug Abuse Patient Records regulations: The Federal rules restrict any use of the information to criminally investigate or prosecute any alcohol or drug abuse patient.[facility] HospitalIn the event this information is protected by the Federal Confidentiality of Alcohol and Drug Abuse Patient Records regulations: The Federal rules restrict any use of the information to criminally investigate or prosecute any alcohol or drug abuse patient.[facility] HospitalIn the event this information is protected by the Federal Confidentiality of Alcohol and Drug Abuse Patient Records regulations: The Federal rules restrict any use of the information to criminally investigate or prosecute any alcohol or drug abuse patient.[facility] HospitalIn the event this information is protected by the Federal Confidentiality of Alcohol and Drug Abuse Patient Records regulations: The Federal rules restrict any use of the information to criminally investigate or prosecute any alcohol or drug abuse patient.[facility] HospitalIn the event this information is protected by the Federal Confidentiality of Alcohol and Drug Abuse Patient Records regulations: The Federal rules restrict any use of the information to criminally investigate or prosecute any alcohol or drug abuse patient.[facility] HospitalIn the event this information is protected by the Federal Confidentiality of Alcohol and Drug Abuse Patient Records regulations: The Federal rules restrict any use of the information to criminally investigate or prosecute any alcohol or drug abuse patient.[facility] HospitalIn the event this information is protected by the Federal Confidentiality of Alcohol and Drug Abuse Patient Records regulations: The Federal rules restrict any use of the information to criminally investigate or prosecute any alcohol or drug abuse patient.[facility] HospitalIn the event this information is protected by the Federal Confidentiality of Alcohol and Drug Abuse Patient Records regulations: The Federal rules restrict any use of the information to criminally investigate or prosecute any alcohol or drug abuse patient.[facility] HospitalIn the event this information is protected by the Federal Confidentiality of Alcohol and Drug Abuse Patient Records regulations: The Federal rules restrict any use of the information to criminally investigate or prosecute any alcohol or drug abuse patient.[facility] HospitalIn the event this information is protected by the Federal Confidentiality of Alcohol and Drug Abuse Patient Records regulations: The Federal rules restrict any use of the information to criminally investigate or prosecute any alcohol or drug abuse patient.[facility] HospitalIn the event this information is protected by the Federal Confidentiality of Alcohol and Drug Abuse Patient Records regulations: The Federal rules restrict any use of the information to criminally investigate or prosecute any alcohol or drug abuse patient.[facility] HospitalIn the event this information is protected by the Federal Confidentiality of Alcohol and Drug Abuse Patient Records regulations: The Federal rules restrict any use of the information to criminally investigate or prosecute any alcohol or drug abuse patient.[facility] HospitalIn the event this information is protected by the Federal Confidentiality of Alcohol and Drug Abuse Patient Records regulations: The Federal rules restrict any use of the information to criminally investigate or prosecute any alcohol or drug abuse patient.[facility] HospitalIn the event this information is protected by the Federal Confidentiality of Alcohol and Drug Abuse Patient Records regulations: The Federal rules restrict any use of the information to criminally investigate or prosecute any alcohol or drug abuse patient.[facility] HospitalIn the event this information is protected by the Federal Confidentiality of Alcohol and Drug Abuse Patient Records regulations: The Federal rules restrict any use of the information to criminally investigate or prosecute any alcohol or drug abuse patient.[facility] HospitalIn the event this information is protected by the Federal Confidentiality of Alcohol and Drug Abuse Patient Records regulations: The Federal rules restrict any use of the information to criminally investigate or prosecute any alcohol or drug abuse patient.[facility] HospitalIn the event this information is protected by the Federal Confidentiality of Alcohol and Drug Abuse Patient Records regulations: The Federal rules restrict any use of the information to criminally investigate or prosecute any alcohol or drug abuse patient.[facility] HospitalIn the event this information is protected by the Federal Confidentiality of Alcohol and Drug Abuse Patient Records regulations: The Federal rules restrict any use of the information to criminally investigate or prosecute any alcohol or drug abuse patient.[facility] HospitalIn the event this information is protected by the Federal Confidentiality of Alcohol and Drug Abuse Patient Records regulations: The Federal rules restrict any use of the information to criminally investigate or prosecute any alcohol or drug abuse patient.[facility] HospitalIn the event this information is protected by the Federal Confidentiality of Alcohol and Drug Abuse Patient Records regulations: The Federal rules restrict any use of the information to criminally investigate or prosecute any alcohol or drug abuse patient.[facility] HospitalIn the event this information is protected by the Federal Confidentiality of Alcohol and Drug Abuse Patient Records regulations: The Federal rules restrict any use of the information to criminally investigate or prosecute any alcohol or drug abuse patient.[facility] HospitalIn the event this information is protected by the Federal Confidentiality of Alcohol and Drug Abuse Patient Records regulations: The Federal rules restrict any use of the information to criminally investigate or prosecute any alcohol or drug abuse patient.[facility] HospitalIn the event this information is protected by the Federal Confidentiality of Alcohol and Drug Abuse Patient Records regulations: The Federal rules restrict any use of the information to criminally investigate or prosecute any alcohol or drug abuse patient.[facility] HospitalIn the event this information is protected by the Federal Confidentiality of Alcohol and Drug Abuse Patient Records regulations: The Federal rules restrict any use of the information to criminally investigate or prosecute any alcohol or drug abuse patient.[facility] HospitalIn the event this information is protected by the Federal Confidentiality of Alcohol and Drug Abuse Patient Records regulations: The Federal rules restrict any use of the information to criminally investigate or prosecute any alcohol or drug abuse patient.[facility] HospitalIn the event this information is protected by the Federal Confidentiality of Alcohol and Drug Abuse Patient Records regulations: The Federal rules restrict any use of the information to criminally investigate or prosecute any alcohol or drug abuse patient.[facility] HospitalIn the event this information is protected by the Federal Confidentiality of Alcohol and Drug Abuse Patient Records regulations: The Federal rules restrict any use of the information to criminally investigate or prosecute any alcohol or drug abuse patient.[facility] HospitalIn the event this information is protected by the Federal Confidentiality of Alcohol and Drug Abuse Patient Records regulations: The Federal rules restrict any use of the information to criminally investigate or prosecute any alcohol or drug abuse patient.[facility] HospitalIn the event this information is protected by the Federal Confidentiality of Alcohol and Drug Abuse Patient Records regulations: The Federal rules restrict any use of the information to criminally investigate or prosecute any alcohol or drug abuse patient.[facility] HospitalIn the event this information is protected by the Federal Confidentiality of Alcohol and Drug Abuse Patient Records regulations: The Federal rules restrict any use of the information to criminally investigate or prosecute any alcohol or drug abuse patient.[facility] HospitalIn the event this information is protected by the Federal Confidentiality of Alcohol and Drug Abuse Patient Records regulations: The Federal rules restrict any use of the information to criminally investigate or prosecute any alcohol or drug abuse patient.[facility] HospitalIn the event this information is protected by the Federal Confidentiality of Alcohol and Drug Abuse Patient Records regulations: The Federal rules restrict any use of the information to criminally investigate or prosecute any alcohol or drug abuse patient.[facility] HospitalIn the event this information is protected by the Federal Confidentiality of Alcohol and Drug Abuse Patient Records regulations: The Federal rules restrict any use of the information to criminally investigate or prosecute any alcohol or drug abuse patient.[facility] HospitalIn the event this information is protected by the Federal Confidentiality of Alcohol and Drug Abuse Patient Records regulations: The Federal rules restrict any use of the information to criminally investigate or prosecute any alcohol or drug abuse patient.[facility] FOR RECORDS PERTAINING TO PATIENTS WHO [...] BE BASED ON THE PRIMARY CLINICAL RECORDS. [facility] [employer] [facility]. provides no warranty or guarantee of the accuracy or completeness of information in this document.
== END 2023-10-11 02:44 | disposition left against medical advice (07) ==
PROVIDERS: PCP Family Medicine
DX: R05.9 Cough, unspecified (principal); Z53.21 Procedure and treatment not carried out due to patient leaving prior to being seen by health care provider
CPT/HCPCS: 99281

== ENCOUNTER 2023-10-12 18:10 | Emergency (ER) | payer MEDICAID, SELFPAY ==
[2023-10-12 18:12] VITALS: BP 126/88; PULSE 80; RESP 18; TEMP 36; O2SAT 95; BMI 42.5
--- NOTE | 2023-10-12 18:28 | EKG12_ITS ---
Test Reason : CP Blood Pressure : / mmHG Vent. Rate : 093 BPM Atrial Rate : 093 BPM P-R Int : 166 ms QRS Dur : 078 ms QT Int : 336 ms P-R-T Axes : 041 039 038 degrees QTc Int : 417 ms Normal sinus rhythm Normal ECG Confirmed by YVES ECHEVARRIA, ARIEL ([id number]), editor managing newspaper HARRY OSBORN ([id number]) on 10/15/2023 7:55:08 AM Referred By: Confirmed By:ARIEL MARINELLI MD
--- NOTE | 2023-10-12 18:29 | EDS_ITS ---
HPI History of Present Illness Chief Complaint: Upper Extremity Injury Informant: patient Narrative Narrative: Patient complains of pain near her right shoulder and chest. Patient states that she does not know if she had a stress attack, or heart attack, or just hurt her shoulder falling into a box. She was helping her sister move and lifting boxes. She has what she describes as tightness on top of her right shoulder. It does not go into her chest. She is not short of breath. She also fell into a box but did not think she hurt herself. Never hit her head and she is not having headache. No fevers or chills. No coughing. 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 Nondisplaced fracture of middle phalanx of left lesser toe(s), initial encounter for closed fracture Nondisplaced fracture of proximal phalanx of left lesser toe(s), initial encounter for closed fracture Oppositional defiant disorder Osteochondral fracture Right wrist sprain Severe headache Sprain of left index finger Sprain of right hand Sprain of right index finger Thyroid disease Undersocialized conduct disorder, aggressive type, moderate Home Medications norethindrone (contraceptive) 0.35 mg tablet 1 tab PO DAILY hormones/ control 01/21/19 [History Last Taken 04/22/19] meclizine 25 mg tablet 25 mg PO TID PRN vertigo #20 tabs 01/31/21 [Rx Last Taken Unknown] cetirizine 10 mg tablet 10 mg PO DAILY 01/01/22 [History Last Taken Unknown] levothyroxine 88 mcg tablet 88 mcg PO DAILY 05/04/22 [History Last Taken Unknown] sertraline 100 mg tablet 100 mg PO DAILY 10/19/22 [History Last Taken Unknown] Allergy/AdvReac Type Severity Reaction Status Date / Time amoxicillin [From Augmentin] Allergy Other Verified 10/12/23 18:12 amoxicillin trihydrate Allergy Other Verified 10/12/23 18:12 [From Augmentin] azithromycin Allergy Other Verified 10/12/23 18:12 clavulanic acid Allergy Other Verified 10/12/23 18:12 [From Augmentin] erythromycin base Allergy Unknown Verified 10/12/23 18:12 [From E-Mycin] potassium clavulanate Allergy Other Verified 10/12/23 18:12 [From Augmentin] ibuprofen AdvReac Nausea Verified 10/12/23 18:12 Surgical History History of ear surgery History of eye surgery Social History household members: other details: Lives with her grandmother Smoking Status: Never smoker alcohol intake: never substance use type: does not use ROS ROS ED ROS Narrative Constitutional: No recent fevers or chills. EYE: No discharge, visual complaints, or pain. ENT: No difficulty swallowing. No swelling. No pain. No reflux symptoms. CV: See history of present illness. Respiratory: No coughing or trouble breathing. GI: No abdominal pain. No nausea vomiting diarrhea. No blood in stool. : No frequency dysuria or hematuria. Musculoskeletal: See history of present illness. Skin: Nondiaphoretic. No rashes or abrasions. Neuro: No weakness or numbness. Endocrine: No polyuria or polydipsia. EXAM Physical Exam Narrative Exam Narrative: CONSTITUTIONAL: Patient is nontoxic in appearance. The patient looks comfortable. Work of breathing looks normal. HEENT: No notable trauma. Mucous membranes moist. No sinus tenderness. No indication of pain with swallowing. EYES: No conjunctival injection. No proptosis. NECK:No JVD. No stridor. In the lower trapezius and upper supraspinatus area there is mild tenderness but no redness. No rashes. CARDIOVASCULAR: Regular rate. Regular rhythm. No notable murmur. No JVD. Distal pulses are normal x 4. RESPIRATORY: No respiratory distress. Breathing is unlabored. No wheezes. No rhonchi. No rales. No pain with a deep breath. No chest wall tenderness. All the tenderness is higher up on top of the shoulder. GASTROINTESTINAL: Not distended. Bowel sounds are normal. No tenderness. No guarding. No rebound. No palpable mass. No bruit is heard. GENITOURINARY: No tenderness over the bladder. No CVA tenderness. MUSCULOSKELETAL: A no sign of trauma. No bruising or abrasions. Shoulder is located. She reproduces the pain by moving the arm overhead and forward but there is no limitation. This seems musculoskeletal on exam. NEUROLOGICAL: Patient is alert and appropriate. No focal deficit noted. SKIN: No noted rashes. No diaphoresis. PSYCHIATRIC: Patient is calm. Mood is appropriate. Const Vital Signs: 10/12/23 18:12 Temperature 96.8 F L Temperature Source Temporal Pulse Rate 80 Respiratory Rate 18 Blood Pressure 126/88 H Blood Pressure Mean 100 Pulse Ox 95 Oxygen Delivery Method Room Air MDM MDM MDM Narrative Medical decision making narrative: My independent interpretation of her single view chest x-ray shows no acute process. Slightly poor inspiration. No bony injury. No pneumothorax. No subcutaneous air. Final reading is pending. Patient was very concerned about heart attack. I do not think her symptoms match this. We did do an EKG that showed no acute process. I think this is likely strain from lifting boxes and may be falling into a box. [id number] meds should be appropriate. EKG Initial EKG: Comments: My independent interpretation of the patient's EKG shows a normal sinus rhythm with a rate of 93. No ectopy. No acute ST elevation or dep ression. TX interval, QRS duration and QTc are all normal. Discharge Plan Triage Chief Complaint: Upper Extremity Injury ED Provider: Mike Lombardo Dx/Rx/DC Orders Clinical Impression: History of fall, Right shoulder strain Instructions: ED Shoulder Pain, Uncertain Cause Prescriptions: No Action cetirizine 10 mg tablet 10 mg PO DAILY norethindrone (contraceptive) 0.35 MG tablet 1 tab PO DAILY meclizine 25 mg tablet 25 mg PO TID PRN (Reason: vertigo) Qty: 20 0RF levothyroxine 88 mcg tablet 88 mcg PO DAILY Patient Comments: take 1 tablet by mouth once daily before breakfast sertraline 100 mg tablet 100 mg PO DAILY Primary Care Provider: Gregor Trujillo Referrals: Gregor Trujillo MD [Primary Care Provider] - Disposition Disposition: Home, Self Care Capacity Legal Assembly Room Supervisor Reflex Medical hold order details:: IF a medical hold is selected below, a suggested order for a MEDICAL HOLD will reflex upon signing the document. Next of kin: [place] law dictates a PRIORITY LIST for identifying legal decision-maker/legal next of kin in the following order (LNOK): 1st: The patient?s legal guardian, if any 2nd: The patient's spouse (if status is questionable, consult Risk Management) 3rd: The patient?s adult child(gracy) (majority, if multiple children) 4th: The patient?s parents 5th: The patient?s adult siblings (majority, if multiple children siblings)
--- NOTE | 2023-10-12 18:30 | RAD_ITS ---
STUDY: X-RAY CHEST REASON FOR EXAM: Female, 22 years old. fall TECHNIQUE: Single AP portable view of the chest. COMPARISON: 10/06/2022 FINDINGS: Poor inspiration with some bibasilar atelectasis. There is no demonstrated pleural abnormality. Normal size heart. Normal mediastinum and igor. Normal visualized pulmonary arteries. Normal visualized aortic arch and descending thoracic aorta. Normal visualized thoracic spine. Normal visualized ribs, clavicles, and shoulders. There is no demonstrated abnormality of the visualized soft tissue structures of the upper abdomen. RAD/Chest 1 View (Portable) IMPRESSION: Poor inspiration with some bibasilar atelectasis. Electronically Signed: Ruddy Russell MD at 19:08 EST ,
--- OUTSIDE RECORDS SUMMARY | 2023-10-12 18:53 | XMS RPT_ITS | CCD ---
Author Name Unknown Address [address] [place] [address] Organization [facility] Care Team Providers Care Medical Genetics Director Name Role Phone Unavailable Primary Care Provider UnavailKavya Noyola Primary Care Provider DR IKER TRUJILLO MD Primary Care Physician Kavya Contreras Primary Care Provider ERICKA LARKIN Referring Unavailable KAVYA CONTRERAS Primary Care Unavailable KAVYA CONTRERAS Primary Care Unavailable KAVYA CONTRERAS Primary Care Unavailable ANGIE COTTER Attending Unavailable Ikre Trujillo MD Primary Care Provider [phone] MILAN FORREST Attending Unavailable IKER TRUJILLO Primary Care Unavailable REJI GALICIA Referring Unavailable IKER TRUJILLO Primary Care Unavailable IKER TRUJILLO Primary Care Unavailable JAIMIE CANADA Attending UnavailIKER Quiñonez Primary Care Unavailable PROVIDER, UNKNOWN Referring Unavailable IKER TRUJILLO Primary Care Unavailable CELESTINE BYRNES Referring Unavailable VERONICA JIANG Referring Unavailab IKER Moore Primary Care Unavailable IKER TRUJILLO Primary Care Unavailable IKER TRUJILLO Primary Care Unavailable IKER TRUJILLO Primary Care Unavailable ERNESTO MCKINNEY Referring Unavailable IKER TRUJILLO Primary Care Unavailable ERNESTO MCKINNEY Referring Unavailable IKER TRUJILLO Primary Care Unavailable IKER TRUJILLO Primary Care Unavailable MAMTA SAEZ Attending Unavailable MARLON DASILVA Referring Unavailable MARLON DASILVA Attending Unavailable IKER TRUJILLO Primary Care Unavailable IKER TRUJILLO Primary Care Unavailable LINDA RECINOS Attending Unavailable IKER TRUJILLO Primary Care Unavailable AL HUERTA Referring Unavailable ELDERBROCK, IKER Meseret Primary Care Unavailable ELDERBROCK, IKER Meseret Primary Care Unavailable MAMTA SAEZ Attending Unavailable ELDERBROCK, IKER Carl Primary Care Unavailable BALWINDER CORBIN Attending Unavailable ELDERBROCK, IKER Meseret Primary Care Unavailable ELDERBROCK, IKER Carl Attending Unavailable SRUTHI LILLY Attending Unavailable ELDERBROCK, IKER Carl Primary Care Unavailable TESTSRUTHI MAN Attending Unavailable ELDERBROCK, IKER Meseret Primary Care Unavailable FARRUKH MAXWELL Attending Unavailable ELDERBROCK, IKER Meseret Primary Care Unavailable ELDERBROCK, IKER D Primary Care Unavailable CELESTINE BYRNES Attending Unavailable MICHELLE GLOVER Referring Unavailable ELDERBROCK, IKER Carl Primary Care Unavailable VERONICA JIANG Referring Unavailab le VERONICA JIANG Attending Unavailab le ELDERBROCK, IKER Carl Primary Care Unavailable VERONICA JIANG Referring Unavailab MARLON Garcia Attending Unavailable SRUTHI LILLY Referring Unavailable ELDERIKER AMANDA Primary Care Unavailable MARLON DASILVA Attending Unavailable LINDA RECINOS Referring Unavailable ELDERBROCK, IKER Carl Primary Care Unavailable MARLON DASILVA Attending Unavailable SRUTHI LILLY Referring Unavailable ELDERBROCK, IKER Carl Primary Care Unavailable ELDERKEISHACK, IKER Carl Primary Care Unavailable VERONICA JIANG Referring Unavailab MICHELLE Page Attending Unavailable MARLON DASILVA Attending Unavailable SRUTHI LILLY Referring Unavailable ELDERBROCKIKER Primary Care Unavailable MARLON DASILVA Attending Unavailable LINDA RECINOS Referring Unavailable ELDERBROCK, IKER Carl Primary Care Unavailable ELDERBROCK, IKER Carl Primary Care Unavailable MAMTA SAEZ Referring Unavailable ELDERBROCK, IKER Meseret Primary Care Unavailable ELDERBROCK, IKER Carl Primary Care Unavailable KERRY STEWARD Referring Unavailable ELDERBROCK, IKER Carl Primary Care Unavailable ELDERBROCK, IKER Carl Primary Care Unavailable MAMTA SAEZ Referring Unavailable ELDERBROCK, IKER Meseret Primary Care Unavailable AL HUERTA Attending Unavailable ELDERBROCK, IKER Meseret Primary Care Unavailable TESTSRUTHI MAN Attending Unavailable ELDERBROCK, IKER Carl Primary Care Unavailable ELDERBROCK, IKER Meseret Primary Care Unavailable MAMTA SAEZ Attending Unavailable OBED, IKER Carl Primary Care Unavailable MAMTA SAEZ Referring Unavailable SRUTHI LILLY Attending Unavailable ELDERBROCK, IKER Meseret Primary Care Unavailable SRUTHI LILLY Referring Unavailable IKER TRUJILLO Primary Care Unavailable MARLON DASILVA Attending Unavailable SRUTHI LILLY Referring Unavailable IKER TRUJILLO Primary Care Unavailable MARLON DASILVA Attending Unavailable MARLON DASILVA Referring Unavailable ELDERKEISHACK, IKER Carl Primary Care Unavailable ELDERIKER AMANDA Primary Care Unavailable VERONICA JIANG Attending Unavailab IKER Moore Primary Care Unavailable MAMTA SAEZ Attending Unavailable IKER TRUJILLO Primary Care Unavailable MAMTA SAEZ Referring Unavailable ELDERBROCK, IKER Carl Primary Care Unavailable SELF Referring Unavailable ELDERIKER AMANDA Primary Care Unavailable RENEE BARGER Attending Unavailable JAMISON MAXWELLIMAVika A Referring Unavailable IKER TRUJILLO Primary Care Unavailable MICHELLE COPPOLA Attending Unavailable SRUTHI LILLY Attending Unavailable IKER TRUJILLO Primary Care Unavailable ELDERIKER AMANDA Primary Care Unavailable MAMTA SAEZ Attending Unavailable IKER TRUJILLO Primary Care Unavailable MAMAT SAEZ Attending Unavailable IKER TRUJILLO Primary Care Unavailable ELDERIKER AMANDA Attending Unavailable BERNIE MAXWELLN A Referring Unavailable ELDERIKER AMANDA Primary Care Unavailable ELDERVASILIY, IKER Carl Primary Care Unavailable VERONICA JIANG Attending Unavailab REJI Garcia Attending Unavailable IKER TRUJILLO Primary Care Unavailable ELDERVASILIY, IKER Carl Primary Care Unavailable HENRY MCDUFFIE Attending Unavailable IKER TRUJILLO Primary Care Unavailable VERONICA JIANG Referring Unavailab SRUTHI Rivera Referring Unavailable IKER TRUJILLO Primary Care Unavailable KANIKA LANZA, DR CANDELARIA Lopez Attending Unavailable OBED ECHEVARRIA, DR DONG Primary Care Unavailab amy DELGADO MD, CAMACHO Banerjee Attending Unavail able OBED ECHEVARRIA, DR DONG Primary Care Unavailab VIDYA Pablo MD Attending Unavailable OBED ECHEVARRIA, DR DONG Primary Care Unavailab amy DELGADO MD, CAMACHO Banerjee Attending Unavail able OBED ECHEVARRIA, DR DONG Primary Care Unavailab amy DELGADO MD, CAMACHO Banerjee Attending Unavail able OBED ECHEVARRIA, DR DONG Primary Care Unavailab amy BOUDREAUX DO, DR CANDELARIA Lopez Attending Unavailable OBED ECHEVARRIA, DR DONG Primary Care Susana Moore MD, DR DONG Primary Care Unavailab Jo-Ann LANZA, KIMBERLY Attending KIMBERLY Baldwin DO Attending Nadira TRUJILLO MD, DR DONG Primary Care Susana Parikh MD, LULA Attending Nadira TRUJILLO MD, DR DONG Primary Care Susana Diaz MD, DR ELVIA Lopez Attending Nadira TRUJILLO MD, DR DONG Primary Care Susana Moore MD, DR DONG Primary Care UnavailDICK Blackburn DO Attending Unavailable Allergies Allergy Classification Reported Allergen(s) Allergy Type Date of Onset Reaction(s) Facility (20 sources) Ibuprofen; Translations: [ibuprofen] Drug Allergy 9 Nausea And Vomiting, GI Upset [facility], [place] (20 sources) Erythromycin; Translations: [erythromycin] Drug Allergy 6 Hives, Rash [facility] Work [facility]: (20 sources) Amoxicillin-Pot Clavulanate; Translations: [AMOXICILLIN-POT CLAVULANATE] Propensity to adverse reactions to drug 0 Hives, Nausea Only [facility] (9 sources) Amoxicillin / Clavulanate; Translations: [amoxicillin-cla vulanate] Drug Allergy Ibuprofen (substance) [facility] (4 sources) Azithromycin Drug Allergy 3 [facility] (4 sources) Clavulanate; Translations: [CLAVULANIC ACID] Drug Allergy 0 Other: See Comments [facility] Medications Current Medications Medication Drug Class(es) Dates [...] height 166.8 cm Pulm Wstr Work Phone: [facility] 08-31-2023 13:57-0500 Body weight 122.02 kg Pulm Wstr Work Phone: [facility] 08-31-2023 13:57-0500 Heart rate 64 /min Pulm Wstr Work Phone: [facility] 08-31-2023 13:57-0500 SaO2% (BldA) [Mass fraction] 98 % Pulm Wstr Work Phone: [facility] 08-30-2023 11:48-0500 Body weight 122.5 kg Farrukh Maxwell MD Work Phone: [facility] 08-30-2023 11:48-0500 Diastolic blood pressure 82 mm[Hg] Farurkh Maxwell MD Work Phone: [facility] 08-30-2023 11:48-0500 Heart rate 109 /min Farrukh Maxwell MD Work Phone: [facility] 08-30-2023 11:48-0500 SaO2% (BldA) [Mass fraction] 94 % Farrukh Maxwell MD Work Phone: [facility] 08-30-2023 11:48-0500 Systolic blood pressure 117 mm[Hg] Farrukh Maxwell MD Work Phone: [facility] 08-24-2023 16:04-0500 Blood Pressure Location VIDYA POOLE MD [facility] 08-24-2023 16:04-0500 Blood Pressure Method VIDYA POOLE MD [facility] 08-24-2023 16:04-0500 Body temperature 97.88 [degF] VIDYA POOLE MD [facility] 08-24-2023 16:04-0500 Diastolic Blood Pressure Non-Invasive 72 mm[Hg] VIDYA POOLE MD [facility] 08-24-2023 16:04-0500 Heart rate 91 /min VIDYA POOLE MD [facility] 08-24-2023 16:04-0500 Respiratory rate 18 /min VIDYA POOLE MD [facility] 08-24-2023 16:04-0500 Systolic Blood Pressure Non-Invasive 113 mm[Hg] VIDYA POOLE MD [facility] 08-13-2023 18:07-0500 Body temperature 98.1 [degF] Ernesto Hank HOT STICK MAN.HEALTH CARE LEGAL ASSISTANT Work Phone: [facility] 08-13-2023 18:07-0500 Body weight 121.47 kg Ernesto Hank HOT STICK MAN.HEALTH CARE LEGAL ASSISTANT Work Phone: [facility] 08-13-2023 18:07-0500 Diastolic blood pressure 75 mm[Hg] Ernesto Hank HOT STICK MAN.HEALTH CARE LEGAL ASSISTANT Work Phone: [facility] 08-13-2023 18:07-0500 Heart rate 99 /min Ernesto Hank HOT STICK MAN.HEALTH CARE LEGAL ASSISTANT Work Phone: [facility] 08-13-2023 18:07-0500 Respiratory rate 18 /min Ernesto Hank HOT STICK MAN.HEALTH CARE LEGAL ASSISTANT Work Phone: [facility] 08-13-2023 18:07-0500 SaO2% (BldA) [Mass fraction] 96 % Ernesto Hank HOT STICK MAN.HEALTH CARE LEGAL ASSISTANT Work Phone: [facility] 08-13-2023 18:07-0500 Systolic blood pressure 123 mm[Hg] Ernesto Hank HOT STICK MAN.HEALTH CARE LEGAL ASSISTANT Work Phone: [facility] 08-01-2023 15:59-0500 Body temperature 98.6 [degF] KIMBERLY VU DO [facility] 08-01-2023 15:59-0500 Diastolic Blood Pressure Non-Invasive 76 1 KIMBERLY BIANCHIFIELD DO [facility] 08-01-2023 15:59-0500 Heart rate 77 /min [facility] 08-01-2023 15:59-0500 Respiratory rate 16 /min [facility] 08-01-2023 15:59-0500 Systolic Blood Pressure Non-Invasive 120 1 [facility] 07-07-2023 16:06-0400 Body height 164.5 cm Mamtajuana Harrishof H[employer] STICK MAN.HEALTH CARE LEGAL ASSISTANT Work Phone: [facility] 07-07-2023 16:06-0400 Body weight 121.56 kg Mamtajuana Harrishof HOT STICK MAN.HEALTH CARE LEGAL ASSISTANT Work Phone: [facility] 07-07-2023 16:06-0400 Diastolic blood pressure 80 mm[Hg] Mamta Harrishof H[employer] STICK MAN.HEALTH CARE LEGAL ASSISTANT Work Phone: [facility] 07-07-2023 16:06-0400 Heart rate 90 /min Mamta Stevenhof HOT STICK MAN.HEALTH CARE LEGAL ASSISTANT Work Phone: [facility] 07-07-2023 16:06-0400 Respiratory rate 16 /min Mamtajuana Harrishof HOT STICK MAN.HEALTH CARE LEGAL ASSISTANT Work Phone: [facility] 07-07-2023 16:06-0400 SaO2% (BldA) [Mass fraction] 96 % Mamtajuana Harrishof H[employer] STICK MAN.HEALTH CARE LEGAL ASSISTANT Work Phone: [facility] 07-07-2023 16:06-0400 Systolic blood pressure 126 mm[Hg] Mamta Harrishof HOT STICK MAN.HEALTH CARE LEGAL ASSISTANT Work Phone: [facility] 06-09-2023 20:46-0400 Body temperature 98.06 [degF] DR CANDELARIA BOUDREAUX DO [facility] 06-09-2023 20:46-0400 Diastolic Blood Pressure Non-Invasive [address] CANDELARIA BOUDREAUX DO [facility] 06-09-2023 20:46-0400 Heart rate 90 /min DR GAONA KBAVTAR DO [facility] 06-09-2023 20:46-0400 Respiratory rate 18 /min DR GAONA KANIKA DO [facility] 06-09-2023 20:46-0400 Systolic Blood Pressure Non-Invasive [address] GAONA KBAVTAR DO [facility] 05-23-2023 18:52-0400 Body temperature 98.6 [degF] CAMACHO DELGADO MD [facility] 05-23-2023 18:52-0400 Diastolic Blood Pressure Non-Invasive 82 1 CAMACHO DELGADO MD [facility] 05-23-2023 18:52-0400 Heart rate 95 /min CAMACHO DELGADO MD [facility] 05-23-2023 18:52-0400 Respiratory rate 18 /min CAMACHO DELGADO MD [facility] 05-23-2023 18:52-0400 Systolic Blood Pressure Non-Invasive 131 1 CAMACHO DELGADO MD [facility] 05-19-2023 14:00-0400 Body weight 121.11 kg Mamta Corneliusf H[employer] STICK MAN.HEALTH CARE LEGAL ASSISTANT Work Phone: [facility] 05-19-2023 14:00-0400 Diastolic blood pressure 96 mm[Hg] Mamta Corneliusf HOT STICK MAN.HEALTH CARE LEGAL ASSISTANT Work Phone: [facility] 05-19-2023 14:00-0400 Heart rate 81 /min Mamta Saez HOT STICK MAN.HEALTH CARE LEGAL ASSISTANT Work Phone: [facility] 05-19-2023 14:00-0400 Respiratory rate 16 /min Mamta Saez HOT STICK MAN.HEALTH CARE LEGAL ASSISTANT Work Phone: [facility] 05-19-2023 14:00-0400 SaO2% (BldA) [Mass fraction] 96 % Mamta Saez HOT STICK MAN.HEALTH CARE LEGAL ASSISTANT Work Phone: [facility] 05-19-2023 14:00-0400 Systolic blood pressure 130 mm[Hg] Mamta Cornelius HOT STICK MAN.HEALTH CARE LEGAL ASSISTANT Work Phone: [facility] 04-21-2023 23:29-0400 Diastolic Blood Pressure Non-Invasive [address] CANDELARIA BOUDREAUX DO [facility] 04-21-2023 23:29-0400 Heart rate 78 /min DR CANDELARIA BOUDREAUX DO [facility] 04-21-2023 23:29-0400 Systolic Blood Pressure Non-Invasive [address] CANDELARIA BOUDREAUX DO [facility] 04-21-2023 21:59-04[address] Cuff Size DR CANDELARIA BOUDREAUX DO [facility] 04-21-2023 21:59-[address] CANDELARIA BOUDREAUX DO [facility] 04-21-2023 21:59-[address] CANDELARIA BOUDREAUX DO [facility] 04-21-2023 21:59-0400 Body height 170.[address] CANDELARIA BOUDREAUX DO [facility] 04-21-2023 21:59-0400 Body temperature 97.88 [degF] DR CANDELARIA BOUDREAUX DO [facility] 04-21-2023 21:59-0400 Body weight 123.[address] CANDELARIA BOUDREAUX DO [facility] 04-21-2023 21:59-0400 Diastolic Blood Pressure Non-Invasive [address] CANDELARIA BOUDREAUX DO [facility] 04-21-2023 21:59-0400 Heart rate 80 /min DR CANDELARIA BOUDREAUX DO [facility] 04-21-2023 21:59-0400 Reason For Taking VItal Signs DR CANDELARIA BOUDREAUX DO [facility] 04-21-2023 21:59-0400 Respiratory rate 18 /min DR CANDELARIA BOUDREAUX DO [facility] 04-21-2023 21:59-0400 Systolic Blood Pressure Non-Invasive [address] CANDELARIA BOUDREAUX DO [facility] 04-12-2023 11:32-0400 Body weight 122.92 kg Al Greg HOT STICK MAN.HEALTH CARE LEGAL ASSISTANT Work Phone: [facility] 04-12-2023 11:32-0400 Diastolic blood pressure 82 mm[Hg] Al Greg HOT STICK MAN.HEALTH CARE LEGAL ASSISTANT Work Phone: [facility] 04-12-2023 11:32-0400 Heart rate 76 /min Al Greg HOT STICK MAN.HEALTH CARE LEGAL ASSISTANT Work Phone: [facility] 04-12-2023 11:32-0400 Respiratory rate 16 /min Al Greg HOT STICK MAN.HEALTH CARE LEGAL ASSISTANT Work Phone: [facility] 04-12-2023 11:32-0400 Systolic blood pressure 126 mm[Hg] Al Greg HOT STICK MAN.HEALTH CARE LEGAL ASSISTANT Work Phone: [facility] 04-07-2023 11:34-0400 Body weight 122.47 kg Mamta Corneliusf HOT STICK MAN.HEALTH CARE LEGAL ASSISTANT Work Phone: [facility] 04-07-2023 11:34-0400 Diastolic blood pressure 80 mm[Hg] Mamta Tannhof HOT STICK MAN.HEALTH CARE LEGAL ASSISTANT Work Phone: [facility] 04-07-2023 11:34-0400 Heart rate 96 /min Mamta Tannhof HOT STICK MAN.HEALTH CARE LEGAL ASSISTANT Work Phone: [facility] 04-07-2023 11:34-0400 Respiratory rate 16 /min Mamta Tannhof HOT STICK MAN.HEALTH CARE LEGAL ASSISTANT Work Phone: [facility] 04-07-2023 11:34-0400 SaO2% (BldA) [Mass fraction] 95 % Mamta Tannhof HOT STICK MAN.HEALTH CARE LEGAL ASSISTANT Work Phone: [facility] 04-07-2023 11:34-0400 Systolic blood pressure 130 mm[Hg] Mamta Tannhof HOT STICK MAN.HEALTH CARE LEGAL ASSISTANT Work Phone: [facility] 04-06-2023 17:14-0400 Body temperature 97.39 [degF] Silvia Praisler-Wood HOT STICK MAN.HEALTH CARE LEGAL ASSISTANT Work Phone: [facility] 04-06-2023 17:14-0400 Body weight 123.2 kg Silvia Praisler-Wood HOT STICK MAN.HEALTH CARE LEGAL ASSISTANT Work Phone: [facility] 04-06-2023 17:14-0400 Diastolic blood pressure 88 mm[Hg] Silvia Praisler-Wood HOT STICK MAN.HEALTH CARE LEGAL ASSISTANT Work Phone: [facility] 04-06-2023 17:14-0400 Heart rate 98 /min Silvia Praisler-Wood HOT STICK MAN.HEALTH CARE LEGAL ASSISTANT Work Phone: [facility] 04-06-2023 17:14-0400 Respiratory rate 18 /min Silvia Praisler-Wood HOT STICK MAN.HEALTH CARE LEGAL ASSISTANT Work Phone: [facility] 04-06-2023 17:14-0400 SaO2% (BldA) [Mass fraction] 97 % Silvia Praisler-Wood HOT STICK MAN.HEALTH CARE LEGAL ASSISTANT Work Phone: [facility] 04-06-2023 17:14-0400 Systolic blood pressure 126 mm[Hg] Silvia Praisler-Wood HOT STICK MAN.HEALTH CARE LEGAL ASSISTANT Work Phone: [facility] 03-31-2023 14:06-0400 Body temperature 97.5 [degF] Ernesto Mckinney HOT STICK MAN.HEALTH CARE LEGAL ASSISTANT Work Phone: [facility] 03-31-2023 14:06-0400 Body weight 97.98 kg Ernesto Mckinney HOT STICK MAN.HEALTH CARE LEGAL ASSISTANT Work Phone: [facility] 03-31-2023 14:06-0400 Diastolic blood pressure 74 mm[Hg] Ernesto Mckinney HOT STICK MAN.HEALTH CARE LEGAL ASSISTANT Work Phone: [facility] 03-31-2023 14:06-0400 Heart rate 91 /min Ernesto Mckinney HOT STICK MAN.HEALTH CARE LEGAL ASSISTANT Work Phone: [facility] 03-31-2023 14:06-0400 Respiratory rate 18 /min Ernesto Mckinney HOT STICK MAN.HEALTH CARE LEGAL ASSISTANT Work Phone: [facility] 03-31-2023 14:06-0400 SaO2% (BldA) [Mass fraction] 96 % Ernesto Mckinney HOT STICK MAN.HEALTH CARE LEGAL ASSISTANT Work Phone: [facility] 03-31-2023 14:06-0400 Systolic blood pressure 112 mm[Hg] Ernesto Mckinney HOT STICK MAN.HEALTH CARE LEGAL ASSISTANT Work Phone: [facility] 03-28-2023 22:19-0400 Body temperature 99.32 [degF] DR ELVIA BORREGO MD [facility] 03-28-2023 22:19-0400 Diastolic Blood Pressure Non-Invasive [address] ELVIA BORREGO MD [facility] 03-28-2023 22:19-0400 Heart rate 94 /min DR ELVIA BORREGO MD [facility] 03-28-2023 22:19-0400 Respiratory rate 18 /min DR ELVIA BORREGO MD [facility] 03-28-2023 22:19-0400 Systolic Blood Pressure Non-Invasive [address] ELVIA BORREGO MD [facility] 01-21-2023 10:50-0400 Body height 170.2 cm Ericka Larkin MD Work Phone: [facility] 01-21-2023 10:50-0400 Body mass index (BMI) [Ratio] 41.66 kg/m2 Ericka Larkin MD Work Phone: [facility] 01-21-2023 10:50-0400 Body weight 120.66 kg Ericka Larkin MD Work Phone: [facility] 01-15-2023 14:00-0400 Body height 170.2 cm LULA XIAO MD [facility] 01-15-2023 14:00-0400 Body temperature 98.06 [degF] LULA XIAO MD [facility] 01-15-2023 14:00-0400 Body weight 90.9 kg LULA XIAO MD [facility] 01-15-2023 14:00-0400 Diastolic Blood Pressure Non-Invasive 80 1 LULA XIAO MD [facility] 01-15-2023 14:00-0400 Heart rate 86 /min LULA XIAO MD [facility] 01-15-2023 14:00-0400 Respiratory rate 16 /min LULA XIAO MD [facility] 01-15-2023 14:00-0400 Systolic Blood Pressure Non-Invasive 128 1 LULA XIAO MD [facility] 01-13-2023 11:54-0400 Body height 170.2 cm Ericka Larkin MD Work Phone: [facility] 01-13-2023 11:54-0400 Body mass index (BMI) [Ratio] 41.66 kg/m2 Ericka Larkin MD Work Phone: [facility] 01-13-2023 11:54-0400 Body weight 120.66 kg Ericka Larkin MD Work Phone: [employer] [facility] [employer] 12-15-2022 23:20-0400 Diastolic Blood Pressure Non-Invasive 78 1 KIMBERLY REICHFIELD DO [facility] 12-15-2022 23:20-0400 Heart rate 91 /min KIMBERLY REICHFIELD DO [facility] 12-15-2022 23:20-0400 Reason For Taking VItal Signs KIMBERLY REICHFIELD DO [facility] 12-15-2022 23:20-0400 Respiratory rate 18 /min KIMBERLY REICHFIELD DO [facility] 12-15-2022 23:20-0400 Systolic Blood Pressure Non-Invasive 119 1 KIMBERLY REICHFIELD DO [facility] 12-15-2022 20:55-0400 Diastolic Blood Pressure Non-Invasive 84 1 KIMBERLY REICHFIELD DO [facility] 12-15-2022 20:55-0400 Heart rate 88 /min KIMBERLY REICHFIELD DO [facility] 12-15-2022 20:55-0400 Reason For Taking VItal Signs KIMBERLY REICHFIELD DO [facility] 12-15-2022 20:55-0400 Respiratory rate 18 /min KIMBERLY REICHFIELD DO [facility] 12-15-2022 20:55-0400 Systolic Blood Pressure Non-Invasive 124 1 KIMBERLY REICHFIELD DO [facility] 12-15-2022 19:25-0400 Blood Pressure Location KIMBERLY REICHFIELD DO [facility] 12-15-2022 19:25-0400 Body temperature 97.16 [degF] [facility] 12-15-2022 19:25-0400 Diastolic Blood Pressure Non-Invasive 81 1 [facility] 12-15-2022 19:25-0400 Heart rate 96 /min [facility] DO [facility] 12-15-2022 19:25-0400 Systolic Blood Pressure Non-Invasive 118 1 [facility] 12-15-2022 10:11-0400 Body temperature 97.88 [degF] CAMACHO DELGADO MD [facility] 12-15-2022 10:11-0400 Body weight 123 kg CAMACHO DELGADO MD [facility] 12-15-2022 10:11-0400 Diastolic Blood Pressure Non-Invasive 79 1 CAMACHO DELGADO MD [facility] 12-15-2022 10:11-0400 Heart rate 78 /min CAMACHO DELGADO MD [facility] 12-15-2022 10:11-0400 Respiratory rate 18 /min CAMACHO DELGADO MD [facility] 12-15-2022 10:11-0400 Systolic Blood Pressure Non-Invasive 124 1 CAMACHO DELGADO MD [facility] 02-17-2022 15:54-0400 Body temperature 97.81 [degF] Gaurang Nesheim DO [facility] 02-17-2022 15:54-0400 Diastolic blood pressure 73 mm[Hg] Gaurang Nesheim DO [facility] 02-17-2022 15:54-0400 Heart rate 85 /min Gaurang Nesheim DO [facility] 02-17-2022 15:54-0400 Respiratory rate 16 /min Gaurang Nesheim DO Work Phone: [facility] 02-17-2022 15:54-0400 SaO2% (BldA) [Mass fraction] 96 % Gaurang Nesheim DO Work Phone: [facility] 02-17-2022 15:54-0400 Systolic blood pressure 139 mm[Hg] Gaurang Nesheim DO Work Phone: [facility] 02-17-2022 14:20-0400 Body mass index (BMI) [Ratio] 41.66 kg/m2 Gaurang Nesheim DO [facility] 02-17-2022 14:20-0400 Body weight 120.66 kg Gaurang Nesheim DO Work Phone: [facility] 12-07-2019 19:19-0400 Body Temperature 98.4 [degF] [employer] 12-07-2019 19:19-0400 BP Diastolic 88 mm[Hg] [employer] 12-07-2019 19:19-0400 BP Systolic 152 mm[Hg] [employer] , [employer] 12-07-2019 19:19-0400 Pulse (Heart Rate) 92 /min [employer] [place] 12-07-2019 19:19-0400 Pulse Oximetry 95 % [employer] , [employer] 12-07-2019 19:19-0400 Respiratory Rate 20 /min [employer], [employer] Encounters Encounter Date Encounter Type Care Provider Facility Start: 10-11-2023 End: 10-11-2023 Emergency department patient visit CAMACHO DELGADO MD Facility:B Start: 10-07-2023 End: 01-11-2024 ambulatory [facility] Facility:[facility] Start: 10-01-2023 End: 10-01-2023 Emergency department patient visit IKER TRUJILLO Facility:[facility] Start: 10-01-2023 End: 10-01-2023 ambulatory FARRUKH MAXWELL Facility:[facility] Start: 09-13-2023 Telephone encounter Iker petersen MD Work Phone: [facility] Procedures Date Procedure Procedure Detail Performing Clinician Start: 08-31-2023 Brncdilat rspse spmt ry pre&post-brncdilat admn Farrukh Maxwell MD Work Phone: Start: 08-30-2023 Radiologic exam ches t 2 views Farrukh Maxwell MD Work Phone: Start: 08-23-2023 TELOS COVI D-19 VACCINE ( SEASON) AGE 12+ YR Iker Trujillo MD Work Phone: Start: 07-07-2023 INFLUENZA VACCINE, A GE 6 MO - 64 YR, QUADRIVALENT (AFLURIA, FLULAVAL, FLUZONE) Mamta Saez HOT STICK MAN.HEALTH CARE LEGAL ASSISTANT Work Phone: Start: 03-31-2023 Radex ankle complete minimum 3 views Ernesto Mckinney HOT STICK MAN.HEALTH CARE LEGAL ASSISTANT Work Phone: Start: 03-22-2023 Radex foot complete minimum 3 views Sruthi Lilly Work Phone: Start: 02-01-2023 Radex ankle complete [...] Radex foot complete minimum 3 views Gaurang Harding DO Work Phone: Start: 12-07-2019 Radiologic examinati on tibia & fibula 2 views Contreras Banerjee Claudette Work Phone: Plan of Treatment Date Care Activity Detail Author Start: 2050 Zoster Vaccines (1 of 2) Zoste r Vaccines (1 of 2) [facility] Start: 12-16-2030 DTaP/Tdap/Td Vaccine s (8 - Td or Tdap) DTaP/Tdap/Td Vaccines (8 - Td or Tdap) [facility] Start: 12-16-2030 Urine microalbumin profile [facility] Start: 08-23-2024 Annual PCP Team Reinstatement Clerk gia Disease Visit Annual PCP Team Chronic Disease Visit [facility] Start: 08-17-2024 Annual PCP Team Reinstatement Clerk gia Disease Visit Annual PCP Team Chronic Disease Visit [facility] Start: 07-07-2024 Annual PCP Team Reinstatement Clerk gia Disease Visit Annual PCP Team Chronic Disease Visit [facility] Start: 07-07-2024 Chlamydia Screening () Ch lamydia Screening () [facility] Immunizations Immunization Date Immunization Notes Care Provider Margaret salgado 08-23-2023 COVID-19 vaccine, ag e 12+ yr, season (PFIZER-BIONTHumble Bundle) Iker Trujillo MD Work Phone: [facility] 07-07-2023 influenza, injectabl e, quadrivalent, contains preservative Mamta Saez APRN.CNP Work Phone: [facility] 10-22-2021 influenza, injectabl e, quadrivalent, contains preservative Sruthi Lilly Work Phone: [facility] 10-22-2021 influenza virus vacc ine, unspecified formulation [facility] 1 [facility] 01-16-2021 COVID-19 original vaccine, full dose, monovalent (MODERNA) Sruthi Lilly Work Phone: [facility] 12-19-2020 COVID-19 original vaccine, full dose, monovalent (MODERNA) [employer] Work Phone: [facility] 12-16-2020 tetanus toxoid, redu vivi diphtheria toxoid, and acellular pertussis vaccine, adsorbed Adayana Work Phone: [facility] 06-29-2019 influenza, injectabl e, quadrivalent, preservative free Adayana Work Phone: [facility] 07-30-2018 influenza, injectabl e, quadrivalent, preservative free [employer] Work Phone: [facility] Work Phone: 06-07-2017 influenza, injectabl e, quadrivalent, contains preservative [employer] Work Phone: [facility] Work Phone: 06-07-2017 meningococcal polysaccharide (groups A, C, Y and W-135) diphtheria toxoid conjugate vaccine (MCV4P) [employer] Work Phone: [facility] Work Phone: 06-29-2016 influenza, injectabl e, quadrivalent, preservative free [employer] Work Phone: [facility] Work Phone: 08-21-2014 human papilloma viru s vaccine, quadrivalent Adayana Work Phone: [facility] Work Phone: 08-21-2014 influenza, injectabl e, quadrivalent, preservative free [employer] Work Phone: [facility] Work Phone: 08-04-2013 influenza virus vacc ine, unspecified formulation [employer] Work Phone: [facility] 05-02-2013 human papilloma viru s vaccine, quadrivalent [employer] Work Phone: [facility] 07-16-2012 influenza virus vacc ine, unspecified formulation [employer] Work Phone: [facility] 05-11-2012 human papilloma viru s vaccine, quadrivalent [employer] Work Phone: [facility] 05-11-2012 Meningococcal, MCV4, unspecified conjugate formulation(groups A, C, Y and W-135) [employer] Work Phone: [facility] 05-11-2012 tetanus toxoid, redu vivi diphtheria toxoid, and acellular pertussis vaccine, adsorbed [employer] Work Phone: [facility] 09-15-2010 influenza virus vacc ine, unspecified formulation Sruthi [employer] Work Phone: [facility] 08-08-2009 influenza virus vacc ine, unspecified formulation Adayana Work Phone: [facility] Work Phone: 08-06-2009 novel influenza-H1N1 -09, all formulations [employer] Work Phone: [facility] 01-09-2009 hepatitis A vaccine, unspecified formulation [employer] Work Phone: [facility] Work Phone: 08-04-2007 influenza virus vacc ine, unspecified formulation Sruthi [employer] Work Phone: [facility] Work Phone: 05-17-2007 hepatitis A vaccine, unspecified formulation Sruthi [employer] Work Phone: [facility] Work Phone: 05-17-2007 varicella virus vaccine [facility] [employer] Work Phone: [facility] Work Phone: 08-05-2006 influenza virus vacc ine, unspecified formulation Sruthi [employer]oz Work Phone: [facility] Work Phone: 06-28-2006 diphtheria, tetanus toxoids and acellular pertussis vaccine Sruthi [employer] Work Phone: [facility] Work Phone: 06-28-2006 measles, mumps and rubella virus vaccine [employer] Work Phone: [facility] Work Phone: 06-28-2006 poliovirus vaccine, inactivated Aday[employer] Work Phone: [facility] Work Phone: 06-07-2006 diphtheria, tetanus toxoids and pertussis vaccine Sruthi [employer] Work Phone: [facility] Work Phone: 06-07-2006 measles, mumps and rubella virus vaccine Sruthi [employer] Work Phone: [facility] Work Phone: 06-07-2006 poliovirus vaccine, inactivated Aday[employer] Work Phone: [facility] Work Phone: 02-27-2003 hepatitis B vaccine, pediatric or pediatric/adolescent dosage Sruthi [employer] Work Phone: [facility] Work Phone: 02-27-2003 pneumococcal conjuga te vaccine, 7 valent Sruthi [employer] Work Phone: [facility] Work Phone: 09-04-2002 influenza virus vacc ine, unspecified formulation Sruthi [employer] Work Phone: [facility] Work Phone: 08-07-2002 influenza virus vacc ine, unspecified formulation Sruthi [employer] Work Phone: [facility] Work Phone: 07-04-2002 diphtheria, tetanus toxoids and acellular pertussis vaccine Sruthi [employer] Work Phone: [facility] Work Phone: 07-04-2002 haemophilus influenz ae type b vaccine, HbOC conjugate [employer] Work Phone: [facility] Work Phone: 07-04-2002 hepatitis B vaccine, pediatric or pediatric/adolescent dosage [employer] Work Phone: [facility] Work Phone: 06-01-2002 hepatitis B vaccine, pediatric or pediatric/adolescent dosage Sruthi [employer] Work Phone: [facility] Work Phone: 06-01-2002 measles, mumps and rubella virus vaccine Sruthi [employer] Work Phone: [facility] Work Phone: 06-01-2002 varicella virus vaccine Sarkis blake [employer] Work Phone: [facility] Work Phone: 07-06-2001 diphtheria, tetanus toxoids and acellular pertussis vaccine Sruthi [employer] Work Phone: [facility] Work Phone: 07-06-2001 haemophilus influenz ae type b vaccine, HbOC conjugate [facility] [employer] Work Phone: [facility] Work Phone: 07-06-2001 pneumococcal conjuga te vaccine, 7 valent Sruthi [employer] Work Phone: [facility] Work Phone: 07-06-2001 poliovirus vaccine, inactivated [employer] Work Phone: [facility] Work Phone: 03-31-2001 diphtheria, tetanus toxoids and acellular pertussis vaccine Sruthi [employer] Work Phone: [facility] Work Phone: 03-31-2001 haemophilus influenz ae type b vaccine, HbOC conjugate Sruthi [employer] Work Phone: [facility] Work Phone: 03-31-2001 pneumococcal conjuga te vaccine, 7 valent [employer] Work Phone: [facility] Work Phone: 03-31-2001 poliovirus vaccine, inactivated [employer] Work Phone: [facility] Work Phone: 01-19-2001 diphtheria, tetanus toxoids and acellular pertussis vaccine [facility] Work Phone: [facility] Work Phone: 01-19-2001 haemophilus influenz ae type b vaccine, HbOC conjugate [facility] Work Phone: [facility] Work Phone: 01-19-2001 pneumococcal conjuga te vaccine, 7 valent [facility] Work Phone: [facility] Work Phone: 01-19-2001 poliovirus vaccine, inactivated [facility] Work Phone: [facility] Work Phone: Payers Date Payer Category Payer Medicaid [id number] 2019 Medicaid [id number] 2019 Private Health Insurance [id number] 2000 Unknown [id number] 2.16.8 [id number] 2000 Unknown [id number] 2.16.8 [id number] 2000 Unknown [id number] 2.16.8 [id number] 2000 Unknown [id number] 2.16.8 [id number] 2000 Unknown [id number] 2.16.8 [id number] 2000 Unknown [id number] 2.16.8 [id number] 2000 Unknown [id number] 2.16.8 [id number] 2000 Unknown [id number] 2.16.8 [id number] 2000 Unknown [id number] 2.16.8 [id number] 2000 Unknown [id number] 2.16.8 [id number] 2000 Unknown [id number] 2.16.8 [id number] Social History Date Type Detail Facility Start: 05-11-2012 End: 12-07-2019 [facility] Start: 12-07-2019 End: 01-21-2023 Alcohol intake [facility] Start: 2000 Sex Assigned At Not on file [facility] Start: 05-11-2012 End: 12-07-2019 Tobacco use and exposure Smokeless tobacco non-user [facility] Work Phone: Start: 02-07-2022 End: 01-13-2023 Exposure to SARS-CoV-2 (event) Not sure [facility] Work Phone: Sex Assigned At Female [facility] Start: 10-23-2022 History SDOH Alcohol Frequency 1 [facility] Start: 10-23-2022 History SDOH Alcohol Std Drinks 0 [facility] Start: 01-15-2023 End: 09-13-2023 Alcohol intake Current non-drinker of alcohol (finding) [facility] Start: 04-01-2023 End: 08-08-2023 History of Social function [facility] Work Phone: Start: 04-01-2023 End: 08-08-2023 Tobacco use panel [facility] Work Phone: National Score (1-10 0), lower number is lower risk 75 [facility] Work Phone: Start: 03-03-2021 Gender identity Choose not to disclo se [facility] Start: 03-03-2021 Sexual orientation Bisexual (finding ) [facility] Functional Status Date Assessment Result Facility 08-24-2023 Functional Status Independent [facility] 08-24-2023 Functional Status ID band on, Allergy Band on, Call device within reach, Bed in low position, Wheels locked, Upper/Half-Length side-rails up, Visitor at bedside, Safety level maintained [facility] 05-23-2023 Functional Status Independent [facility] 05-23-2023 Functional Status Ambulation in [place] [facility] 04-21-2023 Functional Status Independent [facility] 04-21-2023 Functional Status Ambulating in lomeli, Ambulating in room, Awake, Bathroom privileges [facility] 03-28-2023 Functional Status Awake [facility] 01-15-2023 Functional Status Ambulating in lomeli, Ambulating in room, Awake [facility] 12-15-2022 Functional Status Standard Safet y ID band on, Call device within reach, Bed in low position, Wheels locked, Bedside Cart Locked, Visitor at bedside, Safety level maintained [facility] 12-15-2022 Functional Status ID band on, Allergy Band on, Call device within reach, Bed in low position, Wheels locked, Upper/Half-Length side-rails up [facility] Mental Status Date Assessment Result Facility 08-24-2023 Mental Status Orientation Oriented x 4 [facility] 08-24-2023 [facility] Mental Status Orientation Oriented x 4 [facility] 05-23-2023 [facility] 04-21-2023 Mental Status Orientation Oriented x 4 [facility] 04-21-2023 Mental Status [facility] 03-28-2023 Mental Status Oriented x 4 [facility] 01-15-2023 Mental Status Oriented x 4 [facility] 12-15-2022 Mental Status Orientation Oriented x 4 [facility] 12-15-2022 Mental Status Oriented x 4 [facility] Clinical Notes 06-19-2014 to 10-07-2023 Telephone Encounter - Mary Spaulding Ma - 09/13/2023 2:02 PM ESTTelephone Encounter - Iker Trujillo MD - 09/13/2023 1:42 PM ESTTelephone Encounter - Estefani Amato Ma - 09/13/2023 1:24 PM EST Note Date & Type Note Facility 10-07-[address] [facility] 10-07-[address] [facility] 10-01-2023 Note HNO ID: [id number] Author: SHAKEEL RHODES RT(R) Service: ? Author [...] RT Sheyla(R) October 01, 2023 5:[address] [facility] 10-01-[address] [facility] 09-13-[address] 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. Copy made for records. Mary Spaulding Ma Form done Iker Trujillo MD Pt and Guardian, Prabha brought in new Probate forms that need completed for court tomorrow. Tried to bring in last week but Provider was out of office. Needs completed by tomorrow and wants to cotton picking machine operator later today. Old copies attached they would like back. Notified Prabha would route to PCP and call her back later today to cotton picking machine operator at [facility]. Make copy of new paperwork and call Prabha back at [phone] when ready to cotton picking machine operator with all other papers at [facility]. Routed to PCP. Estefani Amato Ma documented in this encounter [facility] 09-13-[address] [facility] 09-09-[address] 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 Regular astigmatism of both eyes 3. Developmental disability Finalized spec rx Unsure of accuracy of prescription due to patient cooperation Follow-up in 1 year or sooner as needed Balwinder Corbin, OD September 09, 2023 4:17 PM documented in this encounter [facility] 09-03-[address] [facility] 09-03-2023 History of Presen t illness Narrative [...] as well as instruct patient on machine hoop maker helper. polyethylene glycol 3350 (MIRALAX) 17 gram/dose powder [...] medications for this visit. Physical Exam Vitals: [facility] 08/06/2023 Psych: Pleasant, good affect and mood [...] laterally with ttp and sharon signs Veronica Jiang D.O. M.P.H. documented in this encounter [facility] 08-31-[address] [facility] 08-31-[address] [facility] 08-31-2023 History of Presen t illness Narrative Program_ID:[id number] Access Code: [email or web address] URL: [email or web address]/ Date: 08-31-2023 Prepared By: Marlon Dasilva Program [...] Marlon Dasilva PT documented in this encounter [facility] 08-31-2023 History of Presen t illness Narrative PULM FUNCTION SMARTBLOCK: Provider: Farrukh Maxwell MD Assisting Tech: Sofi Ford RPFT Spirometry: 1 documented in this encounter [facility] 08-30-2023 Note HNO ID: [id number] Author: Flavia Cantu CT Service: Radiology Author [...] BRUCE Dubois August 30, 2023 1:[address] [facility] 08-30-2023 Miscellaneous Notes Please inform the patient that her chest x ray is normal Thanks documented in this encounter [facility] 08-30-[address] [facility] 08-30-2023 History of Presen t illness [...] 2023 1:06 PM documented in this encounter [facility] 08-30-2023 Miscellaneous Notes Patient called and stated is in [place] [facility], patient fell yesterday on black ice and [...] MARY Agarwal LPN documented in this encounter [facility] 08-30-2023 History of Presen t illness Narrative [...] No significant exposure Silica: No significant exposure Lucas: No significant exposure Mold: No significant exposure [...] as well as instruct patient on machine hoop maker helper. REVIEW OF SYSTEMS Review of Systems Constitutional: [...] 8760 hour(s)). Recent Results (from the past 25865 hour(s)) ECHO Collection Time: 03/20/22 3:43 PM [...] to weight loss clinic Farrukh Maxwell MD, YLUIANA Staff, Respiratory [place] [facility] CC: Iker Trujillo MD No ref. provider found documented in this encounter [facility] 08-24-2023 Hospital Discharg e instructions Patient Education [...] body part Frequent bruising for unknown reasons 1604-[address] [employer]. [address] [place] [address]. All rights reserved. This information is not intended as a substitute for professional medical care. Always follow your healthcare professional's instructions. Follow Up Care 08/24/2023 15:57:06 With:IKER TRUJILLO MD Address: [address] [place] [address]- When:2-4 days [facility] 08-24-2023 Note Discharge Instructions Thank you for allowing [facility] to assist you with your healthcare needs. The following is important discharge information regarding your hospital visit. Diagnosis from Today's Visit Wrist contusion Wrist pain-swelling What to Do Next Instructions from Your Care Team No qualifying data available. Post Acute Orders No qualifying data available. You Need to Schedule the Following Appointments Follow Up with IKER TRUJILLO MD When Within 2-4 days Where: [address] [place] [address]- Allergies Augmentin (Ibuprofen) erythromycin ibuprofen Medications [...] body part Frequent bruising for unknown reasons [id number] [employer]. [address] [place] [address]. All rights reserved. This information is not intended as a substitute for professional medical care. Always follow your healthcare professional's instructions. Additional Information VACCINATE! IT SAVES LIVES! Members of the community who have not yet received the COVID-19 vaccine and would like to receive it can visit one of [facility] vaccine clinics. There are many vaccine clinic locations within the [facility]. For locations and available times, please visit [email or web address] [email or web address] It is important to note that some COVID mobile vaccine clinics are held outdoors and may be canceled in rainy or stormy conditions. To learn more about pediatric vaccinations (ages 5-11), we invite you to visit the [facility] webpage. [email or web address] To learn more about the COVID-19 vaccine, we invite you to visit the CDC website for a list of frequently asked questions. https://www.cdc.gov/coronavirus/ 2019-ncov/vaccines/faq.html [employer] Patient Portal Access Instructions: Stay connected with your healthcare team and access your personal medical information anytime with the [employer] Patient Portal. If you would like a full copy of your medical records please contact the Medical Records Department Wednesday through Wednesday between 8a.m. and 4:30p.m. Please follow the directions below to access the portal: 1.Access the email account you provided upon registration to the hospital.2.Look for an invitation email from .3.Open the email and access the invitation link: Accept Invitation to [employer]4.Fill in the required harrington to create your account. Sign into [email or web address] with your username and password that you [...] you will allow to register on the [facility] Patient Portal for access to your information. You can also access the [employer] Patient Portal on the [employer] adrianna. Simply click on Health Records under [...] Call your local pharmacy or go to [email or web address] to find one close to you.3.Make use of household items: Use cat litter or old coffee grounds to dispose medications if other options are not available. Mix your drugs with these household products, seal them in an airtight container and throw it into the garbage. Call [facility]: [phone] to be sure your drugs can be [...] aware that I should contact my doctor. Patient/Spanner Operator Signature: Date/Time: Relationship to Patient: Witness Name/Signature: Date/Time: [facility] 08-24-2023 Note ORIGINAL EXAMINATION: TWO XRAY [...] 08/24/2023 4:53:17 PM Ordering Provider: PRABHU PARKS [facility] 08-20-[address] [facility] 08-20-2023 History of Presen t illness Narrative Program_ID:[id number] Access Code: [email or web address] URL: [email or web address]://[email or web address]/ Date: 08-20-2023 Prepared By: Marlon Dasilva Program Notes Exercises [...] and walking in 6 weeks or less [place] in home exercise program. Increased strength of RLE to 5/5 for ease of chores, stairs, and transfers Patient Goals: Stop the pain Planned Interventions, Frequency, and Duration: Current Frequency: 1x every other week Duration: 4 weeks Total Number of Visits Planned: 2 Planned Treatment Interventions: Therapeutic exercise (13676), Neuromuscular re-education (00881), Manual therapy (28782), Self-mcfp management (84619), Patient/Family/Caregiver Education PLAN FOR NEXT VISIT: NILE leon Patient demonstrates good understanding of plan of [...] Marlon Dasilva PT documented in this encounter [facility] 08-17-2023 Note HNO ID: [id number] Author: Ingrid De Dios, RT(R) Service: Radiology Author Type: Technologist Type: Progress Notes Filed: 08/17/2023 3:06 PM Note Text: [facility] 08-17-[address] [facility] 08-13-[address] [facility] 08-13-2023 History of Presen t illness Narrative [...] as well as instruct patient on machine hoop maker helper. lidocaine (LIDOCAINE PAIN RELIEF) 4 % patch [...] WRIST GENERAL 3V PA/LAT/OBL LEFT Ernesto Mckinney APRN.HEALTH CARE LEGAL ASSISTANT documented in this encounter [facility] 08-06-[address] [facility] 08-06-[address] [facility] 08-05-2023 Miscellaneous Notes ----- Message from Kajal [...] which facility was the patient seen at: [facility] Was an appointment scheduled (Y/N): n/a Person calling if other than patient: n/a Return call to if other than patient: n/a Best contact number: [phone] Thank you, Kajal Olson August 05, 2023 10:39 AM documented in this encounter [facility] 07-16-[address] [facility] 07-16-2023 History of Presen t illness Narrative [...] straight leg raise. Imaging: Plain films from [facility] are personally reviewed by me and demonstrate [...] MD FAO Orthopaedic Surgery and Sports Medicine [facility] Sports Medicine vamp strap ironer [facility] of Medicine Mixed Crop Farmer, Orthopaedic Sports Medicine Fellowship [facility] Orthopaedic and Rheumatologic [place] documented in this encounter [facility] 07-07-[address] [facility] 07-07-2023 History of Presen t illness Narrative [...] as well as instruct patient on machine hoop maker helper. lidocaine (LIDOCAINE PAIN RELIEF) 4 % patch [...] APRN.COOPER This note was partially generated using Compare And Share voice recognition system. Note was reviewed for accuracy. There may be minor misspellings or grammar miscues with Compare And Share voice recognition. documented in this encounter [facility] 07-07-2023 Instructions Mamta Saez APRN.CNP - 07/07/2023 [...] Promotion: - Eat healthy -- go to SupportPay.gov to get started - Have a yearly [...] - Wear sunscreen documented in this encounter [facility] 07-07-2023 Miscellaneous Notes Left vm message for [...] : 2000 Previous Provider Seen: Milan Forrest () Body Part(s) Identified: left leg Diagnosis/Reason For [...] other than patient: n Best contact number: [phone] Thank you, Adeel Harris July 02, 2023 12:59 PM documented in this encounter [facility] 06-23-2023 Note HNO ID: [id number] Author: Luis Angel Beckman DO Service: ? Author Type: Physician Type: Procedures [...] into the chart. Luis Angel Beckman DO [facility] 06-22-2023 Note HNO ID: [id number] Author: Milan Forrest DO Service: ? Author Type: Physician Type: Progress Notes Filed: 06/22/2023 5:46 PM Note Text: HPI: Aide Lopez presented to Orthopedic office for right knee pain/swelling Seen in ER 06/04/23 Admits disagreement with grandfather and fell on stairs Thinks knee might have gotten twisted Seen at [facility] No xrays of knee just on [...] as well as instruct patient on machine hoop maker helper. lidocaine (LIDOCAINE PAIN RELIEF) 4 % patch [...] cyanosis. Neuro: Ther (more content not included)... [facility] 06-22-2023 Note HNO ID: [id number] Author: Samuel Sexton Tech Service: ? Author Type: Integrated Logistics Programs Director Type: Progress Notes Filed: 06/22/2023 5:46 PM [...] no Additional History related to concern: no [facility] 06-18-2023 Miscellaneous Notes Patient already scheduled to see Dr. Forrest for Right leg. Patient is scheduled to see her on 06/22 @1:30 pm at [facility]. Yinka Fonseca [place] Geraldine ----- Message from Sneha Bruno sent [...] was the patient seen at: somewhere in [facility] Was an appointment scheduled (Y/N): n Person calling if other than patient: n/a Return call to if other than patient: Prabha Amado (mother) Best contact number: [phone] Thank you, Sneha Bruno June 16, 2023 12:52 PM documented in this encounter [facility] 05-23-2023 Hospital Discharg e instructions Patient Education [...] with soap and water or use alcohol-based rn post partum to prevent the spread of infection. Wash your hands after touching anyone who is sick. Wash your hands or use alcohol-based rn post partum after using the toilet and before meals. [...] Keep uncooked meats away from cooked and egqaz-rv-vyz foods. Medicine You may use acetaminophen or [...] directed by your healthcare provider Kaleb muñoz [phone] [employer]. [address] [place] [address], [place] [address]. All rights reserved. This information is not intended as a substitute for professional medical care. Always follow your healthcare professional's instructions. [facility] 05/23/2023 19:00:11 With:IKER TRUJILLO MD Address: [address] [place] [address]- When:2-4 days [facility] 05-23-2023 Emergency department Discharge summary Discharge Instructions [...] MD When Within 2-4 days Where: [address] [place] [address]- Allergies Augmentin (Ibuprofen) erythromycin ibuprofen Medications Please [...] with soap and water or use alcohol-based rn post partum to prevent the spread of infection. Wash your hands after touching anyone who is sick. Wash your hands or use alcohol-based rn post partum after using the toilet and before meals. [...] Keep uncooked meats away from cooked and djcqh-vo-nay foods. Medicine You may use acetaminophen or [...] directed by your healthcare provider Kaleb muñoz [phone] [employer]. [address] [place] [address]. All rights reserved. This information is not intended as a substitute for professional medical care. Always follow your healthcare professional's instructions. Additional Information VACCINATE! IT SAVES LIVES! Members of the community who have not yet received the COVID-19 vaccine and would like to receive it can visit one of [facility] vaccine clinics. There are many vaccine clinic locations within the [facility]. For locations and available times, please visit [email or web address] gov/. It is important to note that some COVID mobile vaccine clinics are held outdoors and may be canceled in rainy or stormy conditions. To learn more about pediatric vaccinations (ages 5-11), we invite you to visit the [facility] webpage. https://www.[facility].org/p ages/1987-Ocwch-Axegenxndgm-Freq ynswcx-Noezn-Mffizmbcr.html To learn more about the COVID-19 vaccine, we invite you to visit the CDC website for a list of frequently asked questions. https://www.cdc.gov/coronavirus/ 2019-ncov/vaccines/faq.html [facility] Patient Portal Access Instructions: Stay connected with your healthcare team and access your personal medical information anytime with the [facility] Patient Portal. If you would like a full copy of your medical records please contact the Medical Records Department Wednesday through Wednesday between 8a.m. and 4:30p.m. Please follow the directions below to access the portal: 1.Access the email account you provided upon registration to the hospital.2.Look for an invitation email from .3.Open the email and access the invitation link: Accept Invitation to [facility]4.Fill in the required harrington to create your [...] you will allow to register on the [facility] Patient Portal for access to your information. You can also access the [facility] Patient Portal on the [employer]. Simply click on Health Records under Health [...] Call your local pharmacy or go to [email or web address] to find one close to you.3.Make use of household items: Use cat litter or old coffee grounds to dispose medications if other options are not available. Mix your drugs with these household products, seal them in an airtight container and throw it into the garbage. Call [facility]: [phone] to be sure your drugs can be [...] aware that I should contact my doctor. Patient/Spanner Operator Signature: Date/Time: Relationship to Patient: Witness Name/Signature: Date/Time: [facility] 05-20-[address] [facility] 05-20-2023 Miscellaneous Notes Addended by: MARLON DASILVA on: 05/20/2023 04:24 PM Modules accepted: Orders documented in this encounter [facility] 05-20-2023 History of Presen t illness Narrative [...] Planned: 2 Planned Treatment Interventions: Therapeutic exercise (62255), Neuromuscular re-education (37341), Manual therapy (71316), Self-mcfp management (21601), Patient/Family/Caregiver Education PLAN FOR NEXT VISIT: Check-up [...] Marlon Dasilva PT documented in this encounter [facility] 05-19-[address] [facility] 05-19-2023 Instructions Mamta Saez APRN.COOPER - 05/19/2023 2:12 PM EDT Viral illness. [...] as tea, flat jose l alphonso or lemon-koi soda, broth and gelatin. -If liquids are [...] decreased urination, develop. documented in this encounter [facility] 05-19-2023 History of Presen t illness Narrative [...] as well as instruct patient on machine hoop maker helper. 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 - Continue supportive [...] discussed and patient voices understanding. Mamta Saez APRN.HEALTH CARE LEGAL ASSISTANT This note was partially generated using Compare And Share voice recognition system. Note was reviewed for accuracy. There may be minor misspellings or grammar miscues with Compare And Share voice recognition. documented in this encounter [facility] 05-11-[address] [facility] 05-11-2023 Note HNO ID: [id number] Author: Raissa Mooney RN Service: ? Author Type: ? Type: Progress Notes Filed: 05/13/2023 7:49 AM Note Text: Patient presents with: Right Great Toe - Follow Up, Nail Check Patient is with her legal guardian Prabha Amado. [facility] 05-11-2023 Instructions Sruthi Lilly - 05/11/2023 4:05 PM EDT Recommend wearing lace up tennis shoe, ie asics, new balance or hoka or alvarado. Avoid sandals or crocks or hey dudes Wear heel lift to both shoes Ice ankle x 10 minutes twice daily. Recommend topical antibotic cream to left leg Stop picking at scabs documented in this encounter [facility] 05-11-2023 History of Presen t illness Narrative [...] 5.6 4.3 - 5.6 % Final Comment: [place] [employer] guidelines indicate that patients with [...] as well as instruct patient on machine hoop maker helper. lidocaine (LIDOCAINE PAIN RELIEF) 4 % patch [...] guardian Prabha Amado. documented in this encounter [facility] 05-03-[address] [facility] 05-03-[address] [facility] 05-03-2023 Note HNO ID: [id number] Author: Elisabeth Patterson RN Service: ? Author [...] 5.6 4.3 - 5.6 % Final Comment: [place] [employer] guidelines indicate that patients with [...] as well as instruct patient on machine hoop maker helper. lidocaine (LIDOCAINE PAIN RELIEF) 4 % patch [...] bottom of foot documented in this encounter [facility] 04-27-[address] [facility] 04-27-2023 History [...] Marlon Dasilva PT documented in this encounter [facility] 04-25-2023 Miscellaneous Notes Left message for patient with negative results and recommendations.Hillary Weber LPN Call patient and let her know her urine culture did not reveal any significant bacterial growth indicating UTI. If antibiotic is helping, she may finish it. If it is not helping, she may discontinue it. Follow-up with PCP. documented in this encounter [facility] 04-23-[address] [facility] 04-22-2023 Miscellaneous Notes Per phone notes, TC to Prabha, patients guardian to obtain medical information for patients upcoming appointment. Prabha states patient was in an accident in January and seen at [facility], headaches have been happening since then (about 3 months). Of note, Prabha was not aware that patient had scheduled appointment and was asking about the date and time. Prabha was unable to provide any detailed medical information, stating that doctors at [facility] told her headaches could be from head [...] Michelle Carolina LPN documented in this encounter [facility] 04-22-2023 Hospital Discharg e instructions Patient Education [...] foods again, start with small amounts of hrwm-dv-ghdmfr, low-fat foods. These include apple sauce, toast, [...] increase stomach acid. Don't use aspirin or hsee-jzn-ucullkf pain and fever medicines, if possible. This includes nonsteroidal anti-inflammatory drugs (NSAIDs). Lose excess weight. Finish eating at least 2 hours before you go to bed or lie down. Raise the head of your bed. 2418-3887 [employer]. [address] [place] [address]. All rights reserved. This information is not intended as a substitute for professional medical care. Always follow your healthcare professional's instructions. Follow Up Care 04/21/2023 21:43:45 With:IKER TRUJILLO MD Address: [address] [place] [address]- When:2-4 days [facility] 04-21-2023 Note Discharge Instructions Thank you for allowing [facility] to assist you with your healthcare needs. The following is important discharge information regarding your hospital visit. Diagnosis from Today's Visit Abdominal pain What to Do Next Instructions from Your Care Team No qualifying data available. Post Acute Orders No qualifying data available. You Need to Schedule the Following Appointments Follow Up with IKER TRUJILLO MD When Within 2-4 days Where: [address] [place] [address]- Allergies Augmentin (Ibuprofen) erythromycin ibuprofen [...] foods again, start with small amounts of oipk-uj-rstdcf, low-fat foods. These include apple sauce, toast, [...] increase stomach acid. Don't use aspirin or luml-quk-dbugvxu pain and fever medicines, if possible. This includes nonsteroidal anti-inflammatory drugs (NSAIDs). Lose excess weight. Finish eating at least 2 hours before you go to bed or lie down. Raise the head of your bed. 5260-4042 [employer]. [address] [place] [address], [place] [address]. All rights reserved. This information is not intended as a substitute for professional medical care. Always follow your healthcare professional's instructions. Additional Information VACCINATE! IT SAVES LIVES! Members of the community who have not yet received the COVID-19 vaccine and would like to receive it can visit one of [facility] vaccine clinics. There are many vaccine clinic locations within the [facility]. For locations and available times, please visit [email or web address]. gov/. It is important to note that some COVID mobile vaccine clinics are held outdoors and may be canceled in rainy or stormy conditions. To learn more about pediatric vaccinations (ages 5-11), we invite you to visit the [facility] webpage. https://www.[facility].org/p ages/9441-Vjlrx-Qtrjgckbxtv-Freq olpysv-Sahre-Enyoxjupr.html To learn more about the COVID-19 vaccine, we invite you to visit the CDC website for a list of frequently asked questions. https://www.cdc.gov/coronavirus/ 2019-ncov/vaccines/faq.html [facility] Patient Portal Access Instructions: Stay connected with your healthcare team and access your personal medical information anytime with the [facility] Patient Portal. If you would like a full copy of your medical records please contact the Medical Records Department Wednesday through Wednesday between 8a.m. and 4:30p.m. Please follow the directions below to access the portal: 1.Access the email account you provided upon registration to the [facility].2.Look for an invitation email from .3.Open the email and access the invitation link: Accept Invitation to [facility]4.Fill in the required harrington to create your account. Sign into [email or web address].[email or web address] ? IO with your username and password that you [...] you will allow to register on the [facility] Patient Portal for access to your information. You can also access the [facility] Patient Portal on the [place]. Simply click on Health Records under Health Data and then click on the [facility] logo. HOW TO SAFELY DISPOSE OF PRESCRIPTION [...] Call your local pharmacy or go to [email or web address] to find one close to you.3.Make use of household items: Use cat litter or old coffee grounds to dispose medications if other options are not available. Mix your drugs with these household products, seal them in an airtight container and throw it into the garbage. Call [facility]: [phone] to be sure your drugs can be [...] aware that I should contact my doctor. Patient/Spanner Operator Signature: Date/Time: Relationship to Patient: Witness [...] Done. Jimena PATTERSON documented in this encounter [facility] 04-12-[address] [facility] 04-12-2023 History [...] her dog in the garage. Went to [facility] on April 09, had x-ray of [...] orthopedics. She would like to go to [facility], [place] where her mother is going. Past medical history, appointments, medications, allergies reviewed. EXAM: BP 126/82 Pulse 76 Resp 16 Wt 122.9 kg (271 lb) LMP 03/27/2023 BMI 44.41 kg/m General Appearance: Well appearing, alert, in no acute distress, well-hydrated, well nourished.. Musculoskeletal: Left hand: She is able to freely move her fingers without difficulty. 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 She would like to go to [facility], [place]. She will make appointment. - CONSULT TO ORTHOPAEDICS Al Huerta APRN.COOPER This note was partly generated using Compare And Share voice recognition dictation and may contain some misspelled or inaccurate words missed on review. documented in this encounter [facility] 04-09-2023 Miscellaneous Notes Pt notified of results via [employer]. Mary Spaulding Ma Can you please call the patient and let her know that I reviewed her x-ray results. X-rays of both the hand and shoulder were all normal. No fractures, dislocations, or any other abnormalities were noted. She may continue supportive care at home. Please let me know if she has any questions. Thank you. Mamta Saez APRN.HEALTH CARE LEGAL ASSISTANT documented in this encounter [facility] 04-07-[address] [facility] 04-07-[address] [facility] 04-07-2023 Instructions Mamta Saez APRN.COOPER - 04/07/2023 11:42 AM EDT Get xray completed today Continue with supportive care at home Ice, elevate, wear brace that was provided. Follow up pending test results. documented in this encounter [facility] 04-07-2023 History of Presen t illness Narrative [...] of liquid and allow time to dissolve. (/2 capful = 8.5 g = approx 2 [...] as well as instruct patient on machine hoop maker helper. lidocaine (LIDOCAINE PAIN RELIEF) 4 % patch [...] APRN.COOPER This note was partially generated using Compare And Share voice recognition system. Note was reviewed for accuracy. There may be minor misspellings or grammar miscues with Compare And Share voice recognition. documented in this encounter [facility] 04-06-[address] [facility] 04-06-2023 History [...] as well as instruct patient on machine hoop maker helper.^Disp: 1 Device^Rfl: 99 lidocaine (LIDOCAINE PAIN RELIEF) [...] Silvia Mireles APRN.CNP documented in this encounter [facility] 04-06-2023 Instructions Silvia Mireles APRN.CNP - 04/06/2023 [...] when lying down. documented in this encounter [facility] 04-06-[address] [facility] 04-06-2023 Miscellaneous Notes Patient present to office today for other appointment in different dept. Patient states dog ate speed pro brace. This nurse provided size Large brace to patient and notified rep. Of situation. Sruthi Lopez LPN documented in this encounter [facility] 04-06-2023 History of Presen t illness Narrative [...] Marlon Dasilva PT documented in this encounter [facility] 04-02-2023 Miscellaneous Notes Pt viewed message with no further response.Anabella Andrade LPN ' Message sent to pt, when she was seen in the office on 12/17/22 refills were given. Will await further response from pt.Anabella Andrade LPN documented in this encounter [facility] 04-02-2023 Miscellaneous Notes OK to refill as [...] Anna Gates LPN documented in this encounter [facility] 04-01-[address] [facility] 03-31-2023 Note [...] as well as instruct patient on machine hoop maker helper.^Disp: 1 Device^Rfl: 99 lidocaine (LIDOCAINE PAIN RELIEF) [...] seen. Dictated by : MD Ernesto AMAYA APRN.HEALTH CARE LEGAL ASSISTANT documented in this encounter [facility] 03-29-2023 Hospital Discharg e instructions Patient Education [...] alternate ice and heat. You may use qtnd-whs-nsiakat pain medicine to control pain, unless another [...] numb, or tingly Pain or swelling increases [phone] [employer]. [address] [place] [address]. All rights reserved. This information is not intended as a substitute for professional medical care. Always follow your healthcare professional's instructions. Follow Up Care 03/28/2023 22:10:33 With:IKER TRUJILLO MD Address: [address] [place] [address]- When:2-4 days [facility] 03-28-2023 Note Discharge Instructions Thank you for allowing [facility] to assist you with your healthcare needs. The following is important discharge information regarding your hospital visit. What to Do Next Instructions from Your Care Team No qualifying data available. Post Acute Orders No qualifying data available. You Need to Schedule the Following Appointments Follow Up with IKER TRUJILLO MD When Within 2-4 days Where: [address] [place] [address]- Allergies Augmentin (Ibuprofen) erythromycin ibuprofen Medications Please [...] alternate ice and heat. You may use ergw-oed-biewluy pain medicine to control pain, unless another [...] numb, or tingly Pain or swelling increases [phone] [employer]. [address] [place] [address], [place] [address]. All rights reserved. This information is not intended as a substitute for professional medical care. Always follow your healthcare professional's instructions. Additional Information VACCINATE! IT SAVES LIVES! Members of the community who have not yet received the COVID-19 vaccine and would like to receive it can visit one of [facility] vaccine clinics. There are many vaccine clinic locations within the [facility]. For locations and available times, please visit [email or web address] gov/. It is important to note that some COVID mobile vaccine clinics are held outdoors and may be canceled in rainy or stormy conditions. To learn more about pediatric vaccinations (ages 5-11), we invite you to visit the [facility] webpage. https://www.[facility].org/p ages/3517-Qhnjx-Wxbmqdrzgvo-Freq krgeto-Jzzpl-Xasmotroa.html To learn more about the COVID-19 vaccine, we invite you to visit the CDC website for a list of frequently asked questions. https://www.cdc.gov/coronavirus/ 2019-ncov/vaccines/faq.html [facility] Patient Portal Access Instructions: Stay connected with your healthcare team and access your personal medical information anytime with the [facility] Patient Portal. If you would like a full copy of your medical records please contact the Medical Records Department Wednesday through Wednesday between 8a.m. and 4:30p.m. Please follow the directions below to access the portal: 1.Access the email account you provided upon registration to the [facility].2.Look for an invitation email from .3.Open the email and access the invitation link: Accept Invitation to [facility]4.Fill in the required harrington to create your [...] you will allow to register on the [facility] Patient Portal for access to your information. You can also access the [facility] Patient Portal on the [place]. Simply click on Health Records under Health Data and then click on the [facility] logo. HOW TO SAFELY DISPOSE OF PRESCRIPTION [...] Call your local pharmacy or go to [email or web address] to find one close to you.3.Make use of household items: Use cat litter or old coffee grounds to dispose medications if other options are not available. Mix your drugs with these household products, seal them in an airtight container and throw it into the garbage. Call [facility]: [phone] to be sure your drugs can be [...] aware that I should contact my doctor. Patient/Spanner Operator Signature: Date/Time: Relationship to Patient: Witness Name/Signature: Date/Time: [facility] 03-28-2023 Emergency department Discharge summary Discharge Instructions Thank you for allowing [facility] to assist you with your healthcare needs. [...] MD When Within 2-4 days Where: [address] [place] [address]- Allergies Augmentin (Ibuprofen) erythromycin ibuprofen Medications Please [...] alternate ice and heat. You may use gfcx-gaq-maxkqtj pain medicine to control pain, unless another [...] numb, or tingly Pain or swelling increases 8629-7560 [employer]. [address] [place] [address]. All rights reserved. This information is not intended as a substitute for professional medical care. Always follow your healthcare professional's instructions. Additional Information VACCINATE! IT SAVES LIVES! Members of the community who have not yet received the COVID-19 vaccine and would like to receive it can visit one of [facility] vaccine clinics. There are many vaccine clinic locations within the [facility]. For locations and available times, please visit [email or web address] It is important to note that some COVID mobile vaccine clinics are held outdoors and may be canceled in rainy or stormy conditions. To learn more about pediatric vaccinations (ages 5-11), we invite you to visit the [facility] webpage. https://www.[facility].org/p ages/7671-Evipp-Dgysfnbsdpj-Freq ozioiq-Xwpsy-Duahnnmvw.html To learn more about the COVID-19 vaccine, we invite you to visit the CDC website for a list of frequently asked questions. https://www.cdc.gov/coronavirus/ 2019-ncov/vaccines/faq.html [facility] Patient Portal Access Instructions: Stay connected with your healthcare team and access your personal medical information anytime with the [facility] Patient Portal. If you would like a full copy of your medical records please contact the Medical Records Department Wednesday through Wednesday between 8a.m. and 4:30p.m. Please follow the directions below to access the portal: 1.Access the email account you provided upon registration to the hospital.2.Look for an invitation email from .3.Open the email and access the invitation link: Accept Invitation to [facility]4.Fill in the required harrington to create your account. Sign into [email or web address] ? IO with your username and password that you [...] you will allow to register on the [employer] Patient Portal for access to your information. You can also access the [employer] Patient Portal on the [employer] adrianna. Simply click on Health Records under Health Data and then click on the [facility] logo. HOW TO SAFELY DISPOSE OF PRESCRIPTION [...] Call your local pharmacy or go to http://[employer]/0J5Wf6l to find one close to you.3.Make use of household items: Use cat litter or old coffee grounds to dispose medications if other options are not available. Mix your drugs with these household products, seal them in an airtight container and throw it into the garbage. Call [facility]: [phone] to be sure your drugs can be [...] aware that I should contact my doctor. Patient/Spanner Operator Signature: Date/Time: Relationship to Patient: Witness [...] report being able to walk without pain [place] in home exercise program. Perform stair negotiation without pain. Increased strength of L ankle to 4+/5 or greater for return to PLOF Patient Goals: Improve pain Planned Interventions, Frequency, and Duration: Current Frequency: 1x/week Duration: 4 weeks Total Number of Visits Planned: 4 Planned Treatment Interventions: Therapeutic exercise (96758), Neuromuscular re-education (96591), Manual therapy (01605), Self-mcfp management (08020), Gait Training (39000), Patient/Family/Caregiver Education PLAN FOR NEXT VISIT: Assess [...] awhile now. Getting a nerve test at [facility]. Pain with stair negotiation and walking at [...] Marlon Dasilva PT documented in this encounter [facility] 03-22-2023 History of Presen t illness Narrative [...] 2023 3:18 PM documented in this encounter [facility] 03-22-2023 History of Presen t illness Narrative [...] 5.6 4.3 - 5.6 % Final Comment: [place] [employer] guidelines indicate that patients with [...] as well as instruct patient on machine hoop maker helper. Cholecalciferol, Vitamin D3, (VITAMIN D-3) 1,000 unit [...] Sruthi Lopez LPN documented in this encounter [facility] 03-22-2023 Instructions Sruthi Lilly - 03/22/2023 2:25 PM EDT Ankle sprain: appears to be improving. Ok to transition out of boot into ankle brace at 1 hour/day and increase as tolerable. Wear brace until ankle feels strong without pain. Continue with therapy for ankle as needed Wear boot on right foot until xrays reviewed documented in this encounter [facility] 02-04-[address] [facility] 02-04-[address] [facility] 02-04-2023 Instructions Sruthi Lilly - 02/04/2023 10:51 AM EDT Continue with boot until pain subsides Can continue with ice bath x 10 minutes two to three times daily If pain improves, consider transition to ankle brace Would recommend trying therapy If pain fails to improve, consider mri documented in this encounter [facility] 02-04-2023 History of Presen t illness Narrative [...] 5.6 4.3 - 5.6 % Final Comment: [place] [employer] guidelines indicate that patients with [...] as well as instruct patient on machine hoop maker helper. lidocaine (LIDODERM) 5 % Apply 1 Patch [...] ice) Comments: ankle documented in this encounter [facility] 02-03-2023 Miscellaneous Notes Pt calling to update [...] instructed. Jimena Sahni documented in this encounter [facility] 02-01-[address] [facility] 02-01-2023 Note [...] 2023 12:45 PM documented in this encounter [facility] 02-01-2023 Instructions Sruthi Lilly - 02/01/2023 11:45 AM EDT Discussed ankle brace vs boot. Patient elected for boot Recommend 81 mg aspirin twice daily when using boot Pending xrays, may consider brace and physical therapy documented in this encounter [facility] 02-01-2023 History of Presen t illness Narrative [...] as well as instruct patient on machine hoop maker helper. Cholecalciferol, Vitamin D3, (VITAMIN D-3) 1,000 unit [...] TONSILLECTOMY & ADENOIDECTOMY <AGE 12 04/2010 Dr. Yair TYMPANOSTOMY LOCAL/TOPICAL ANESTHESIA 04/2010 Dr. Mazariegos FAMILY [...] today. Sruthi Lilly DPM Podiatry [address] [facility] [address] Dept: [phone] Dept AMB ROOMING INTAKE FLOWSHEET DATA Pain Pain Level: 10 Pain Location: Ankle-Left Description: Throbbing, Radiating Duration Amount of Time: 3 Duration Units: Weeks Frequency: Intermittent Intervention/Comfort measure: Medication, Relaxation, Reposition, Cold, Heat Patient presents with: Left Ankle - Established Patient, Pain, Swelling Sruthi Lopez LPN documented in this encounter [facility] 01-21-2023 History of Presen t illness Narrative Images from the original note were not included. 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 dysmenorrhea Dysmenorrhea Menorrhagia with regular cycle Excessive or frequent menstruation Surveillance for control, oral contraceptives Surveillance of previously prescribed contraceptive pill documented in this encounter [facility] note* Diagnosis Sprain of anterior talofibular ligament of right ankle, subsequent encounter- Primary Peroneal tendinitis of left lower extremity Other enthesopathy of ankle and tarsus [facility] Hand pain, left- Primary Pain in [facility] Left hand pain- Primary Pain in limb Acute pain of right shoulder [facility] Diagnosis Hand pain, left- Primary Pain in limb [facility] Diagnosis Sprain of anterior talofibular ligament of right ankle, subsequent encounter- Primary Peroneal tendinitis of left lower extremity Other enthesopathy of ankle and tarsus [facility] Diagnosis Blister of right heel, initial encounter- Primary Hyperkeratosis Acquired keratoderma Sprain of left ankle, unspecified ligament, initial encounter [facility] Diagnosis Tendonitis, Achilles, left- Primary Achilles bursitis or tendinitis ROSELINE (obstructive sleep apnea)- Primary Obstructive sleep apnea (adult) (pediatric) [facility]* Diagnosis Viral gastroenteritis- Primary Intestinal infection due to other organism, not elsewhere classified Nausea Nausea alone [facility] Diagnosis Strain of right Achilles tendon, sequela- Primary [facility]* Diagnosis Wellness examination- Primary Vaginal yeast [...] single bacterial disease [facility] Diagnosis Acute pain of right knee- Primary [facility] Diagnosis Chronic pain of right knee- Primary Hand pain, left Pain in limb [facility] Diagnosis Sprain of left ankle, unspecified ligament, initial encounter [facility]* Diagnosis Right knee pain, unspecified chronicity [facility]* Diagnosis Contusion of right great toe without damage to nail, initial encounter [facility] Diagnosis Injury of left wrist, initial encounter- Primary [facility] Diagnosis Chronic pain of right knee [facility]* Diagnosis Need for vaccination- Primary Need for prophylactic vaccination and inoculation against unspecified single disease documented in this encounter [facility] note* Diagnosis SOB (shortness of breath)- Primary Shortness of breath Morbid obesity (HCC) Morbid obesity [facility]* Diagnosis SOB (shortness of breath) Shortness of breath documented in this encounter [facility] note* Diagnosis SOB (shortness of breath) Shortness of breath [facility]* Diagnosis Chronic pain of right knee- Primary documented in this encounter [facility] note* Diagnosis Acute pain of left knee- Primary Tear of lateral meniscus of left knee, current, unspecified tear type, initial encounter documented in this encounter [facility] note* 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 of both eyes Regular astigmatism Developmental disability Unspecified delay in development [facility] No data available for this section [facility] Progress note No data available for this section [facility] Reason for referral (narrative)* Consultation (Routine) - Pending Review Specialty Diagnoses / Procedures Referred By Suma day Referred To Contact Physical Therapy Diagnoses Contusion of left ankle, subsequent encounter Mild ankle sprain, left, subsequent encounter Procedures [place] OFFICE/OUTPATIENT [facility] 60-74 MINUTES Ericka Larkin MD [address] [place] [address] Referral ID Status Reason Start Date Expiration Date Visits Requested Visits Authorized [id number] Pending Review Specialty Services Required 01/21/2023 01/21/2024 99 99 [facility] for referral (narrative)* Diagnostic Procedure Only (Routine) - Closed Specialty Diagnoses / Procedures Referred By Suma t Referred To Contact XR IMAGING Diagnoses Sprain of left ankle, unspecified ligament, initial encounter Procedures XR ANKLE GENERAL 3V AP/LAT/OBL LEFT RADEX ANKLE COMPLETE MINIMUM 3 VIEWS Sruthi Lilly [address] [place] [address] Xr Imaging Referral ID Status Reason Start Date Expiration Date V isits Requested Visits Authorized [id number] Closed Auto-Generate d Referral 02/01/2023 03/02/2024 1 1 [facility] for referral (narrative)* Diagnostic Procedure Only (Routine) - Closed Specialty Diagnoses / Procedures Referred By Contac t Referred To Contact XR IMAGING Diagnoses Contusion of right great toe without damage to nail, initial encounter Procedures XR FOOT GENERAL 3V AP/LAT/OBL RIGHT RADEX FOOT COMPLETE MINIMUM 3 VIEWS Sruthi Lilly [address] [place] [address] Xr Imaging Referral ID Status Reason Start Date Expiration Date V isits Requested Visits Authorized [id number] Closed Auto-Generate d Referral 03/22/2023 04/20/2024 1 1 [facility] for referral (narrative)* Diagnostic Procedure Only (Urgent) - Closed Specialty Diagnoses / Procedures Referred By Contac t Referred To Contact XR IMAGING Diagnoses Ankle injuries, left, initial encounter Procedures XR ANKLE GENERAL 3V AP/LAT/OBL LEFT RADEX ANKLE COMPLETE MINIMUM 3 VIEWS Ernesto Mckinney APRN.CNP [address] [place] [address] Xr Imaging Referral ID Status Reason Start Date Expiration Date V isits Requested Visits Authorized [id number] Closed Auto-Generate d Referral 03/31/2023 04/29/2024 1 1 [facility] for referral (narrative)* Diagnostic Procedure Only (Routine) - Closed Specialty Diagnoses / Procedures Referred By Contac t Referred To Contact XR IMAGING Diagnoses Acute pain of right shoulder Procedures XR SHOULDER GENERAL 3V OR MORE AP/TRUE AP/OTHER RIGHT RADEX SHOULDER COMPLETE MINIMUM 2 VIEWS Mamta Saez APRN.HEALTH CARE LEGAL ASSISTANT [address] [place] [address] Xr Imaging Referral ID Status Reason Start Date Expiration Date V isits Requested Visits Authorized [id number] Closed Auto-Generate d Referral 04/07/2023 05/06/2024 1 1 * Diagnostic Procedure Only (Routine) - Closed Specialty Diagnoses / Procedures Referred By Contac t Referred To Contact XR IMAGING Diagnoses Left hand pain Procedures XR HAND GENERAL 3V PA/LAT/OBL LEFT RADEX HAND MINIMUM 3 VIEWS Mamta Saez APRN.HEALTH CARE LEGAL ASSISTANT [address] [place] [address] Xr Imaging Referral ID Status Reason Start Date Expiration Date V isits Requested Visits Authorized [id number] Closed Auto-Generate d Referral 04/07/2023 05/06/2024 1 1 [facility] for referral (narrative)* Diagnostic Procedure Only (Routine) - Pending Review Specialty Diagnoses / Procedures Referred By Contac t Referred To Contact XR IMAGING Diagnoses Acute pain of right knee Procedures XR KNEE GENERAL 4V AP BOTH/PA BOTH/LAT/MERC RIGHT RADIOLOGIC EXAM KNEE COMPLETE 4/MORE VIEWS Sruthi Eaton PA-C [address] [place] [address] Xr Imaging [place] [address] Referral ID Status Reason Start Date Expiration Date Visits Requested Visits Authorized [id number] Pending Review Auto-Generat ed Referral 08/14/2024 1 1 [facility] for referral (narrative)* Diagnostic Procedure Only (Routine) - Closed Specialty Diagnoses / Procedures Referred By Contac t Referred To Contact XR IMAGING Diagnoses Sprain of left ankle, unspecified ligament, initial encounter Procedures XR ANKLE GENERAL 3V AP/LAT/OBL LEFT RADEX ANKLE COMPLETE MINIMUM 3 VIEWS Testrake, Sruthi [address] [place] [address] [place] [address] Referral ID Status Reason Start Date Expiration Date V isits Requested Visits Authorized [id number] Closed Auto-Generate d Referral 02/01/2023 03/02/2024 1 1 [facility] for referral (narrative)* Diagnostic Procedure Only (Routine) - Closed Specialty Diagnoses / Procedures Referred By Contac t Referred To Contact XR IMAGING Diagnoses Right knee pain, unspecified chronicity Procedures XR TIBIA FIBULA 2V AP/LAT RIGHT RADIOLOGIC EXAMINATION TIBIA & FIBULA 2 VIEWS Veronica Jiang DO [address] [place] [address] [place] [address] Referral ID Status Reason Start Date Expiration Date V isits Requested Visits Authorized [id number] Closed Auto-Generate d Referral 11/04/2022 12/04/2023 1 1 [facility] for referral (narrative)* Diagnostic Procedure Only (Routine) - Closed Specialty Diagnoses / Procedures Referred By Contac t Referred To Contact XR IMAGING Diagnoses Contusion of right great toe without damage to nail, initial encounter Procedures XR FOOT GENERAL 3V AP/LAT/OBL RIGHT RADEX FOOT COMPLETE MINIMUM 3 VIEWS Sruthi Lilly [address] [place] [address] [place] [address] Referral ID Status Reason Start Date Expiration Date V isits Requested Visits Authorized [id number] Closed Auto-Generate d Referral 03/22/2023 04/20/2024 1 1 T [facility] for referral (narrative)* Diagnostic Procedure Only (Urgent) - Pending Review Specialty Diagnoses / Procedures Referred By Contac t Referred To Contact XR IMAGING Diagnoses Injury of left wrist, initial encounter Procedures XR WRIST GENERAL 3V PA/LAT/OBL LEFT RADEX WRIST COMPLETE MINIMUM 3 VIEWS Ernesto Mckinney APRN.HEALTH CARE LEGAL ASSISTANT [address] [place] [address] [place] [address] Referral ID Status Reason Start Date Expiration Date Visits Requested Visits Authorized [id number] Pending Review Auto-Generat ed Referral 09/11/2024 1 1 [facility] for visit Narrative* Diagnostic Procedure Only (Routine) - Closed Specialty Diagnoses / Procedures Referred By Contac t Referred To Contact XR IMAGING Diagnoses Sprain of left ankle, unspecified ligament, initial encounter Procedures XR ANKLE GENERAL 3V AP/LAT/OBL LEFT RADEX ANKLE COMPLETE MINIMUM 3 VIEWS Sruthi Lilly [address] [place] [address] [place] [address] Referral ID Status Reason Start Date Expiration Date V isits Requested Visits Authorized [id number] Closed Auto-Generate d Referral 02/01/2023 03/02/2024 1 1 [facility] for visit Narrative* Diagnostic Procedure Only (Routine) - Closed Specialty Diagnoses / Procedures Referred By Contac t Referred To Contact XR IMAGING Diagnoses Right knee pain, unspecified chronicity Procedures XR TIBIA FIBULA 2V AP/LAT RIGHT RADIOLOGIC EXAMINATION TIBIA & FIBULA 2 VIEWS Veronica Jiang, DO [address] [place] [address] [place] [address] Referral ID Status Reason Start Date Expiration Date V isits Requested Visits Authorized [id number] Closed Auto-Generate d Referral 11/04/2022 12/04/2023 1 1 [facility] for visit Narrative* Diagnostic Procedure Only (Routine) - Closed Specialty Diagnoses / Procedures Referred By Contac t Referred To Contact XR IMAGING Diagnoses Contusion of right great toe without damage to nail, initial encounter Procedures XR FOOT GENERAL 3V AP/LAT/OBL RIGHT RADEX FOOT COMPLETE MINIMUM 3 VIEWS Sruthi Lilly [address] [place] [address] [place] [address] Referral ID Status Reason Start Date Expiration Date V isits Requested Visits Authorized [id number] Closed Auto-Generate d Referral 03/22/2023 04/20/2024 1 1 [facility] Discharge Instructions * Attachments The following attachments cannot be sent through Care Everywhere. * Leg Pain (Italian) documented in this encounter Assessments Diagnosis Right [...] EXTREM W/O CONTRAST Veronica Villanueva DO [address] [place] [address] [place] [address] Referral ID Status Reason Start Date Expiration Date V isits Requested Visits Authorized [id number] Denied Auto-Generate d Referral 09/03/2023 10/07/2023 1 0 Specialty Diagnoses / Procedures Referred By Contac t Referred To Contact Diagnoses Class 3 severe obesity due to excess calories without serious comorbidity with body mass index (BMI) of 40.0 to 44.9 in adult (HCC) Procedures ENDOCRINOLOGY DIETITIAN VISIT (MNT) MEDICAL NUTRITION ASSMT&IVNTJ INDIV EACH 15 HI MEDICAL NUTRITION ASSMT&IVNTJ INDIV EACH 15 HI MEDICAL NUTRITION ASSMT&IVNTJ INDIV EACH 15 HI MEDICAL NUTRITION ASSMT&IVNTJ INDIV EACH 15 HI Farrukh Maxwell MD [address] [place] [address] Referral ID Status Reason Start Date Expiration Date Visits Requested Visits Authorized [id number] Authorized PCP Requested Referral 08/30/2023 08/29/2024 1 1 Specialty Diagnoses / Procedures Referred By Contac t Referred To Contact [facility] Diagnoses SOB (shortness of breath) Procedures SPIROMETRY - BASELINE AND POST DILATOR BRNCDILAT RSPSE SPMTRY PRE&POST-BRNCDILAT ADMFarrukh Rose MD [address] [place] [address] [facility] [place] [address] [place] [address] Referral ID Status Reason Start Date Expiration Date Visits Requested Visits Authorized [id number] Authorized Auto-Generat ed Referral 08/30/2023 09/28/2024 1 1 Specialty Diagnoses / Procedures Referred By Contact Referred To Contact [facility] Diagnoses Chronic pain of right knee Procedures CONSULT TO PHYSICAL THERAPY PHYSICAL THERAPY EVALUATION HIGH COMPLEX 45 MINS Linda Recinos MD [address] [place] [address] [facility] [address] [address] Referral ID Status Reason Start Date Expiration Date Visits Requested Visits Authorized [id number] Pending Review Auto-Generat ed Referral 07/15/2024 1 1 Specialty Diagnoses / Procedures Referred By Contac t Referred To Contact XR IMAGING Diagnoses Chronic pain of right knee Procedures XR HIP GENERAL 3V PELV/AP/LAT RIGHT RADEX HIP UNILATERAL WITH PELVIS 2-3 VIEWS Linda Recinos MD [address] [place] [address] [place] [address] Referral ID Status Reason Start Date Expiration Date V isits Requested Visits Authorized [id number] Closed Auto-Generate d Referral 07/16/2023 08/14/2024 1 1 Specialty Diagnoses / Procedures Referred By Contac t Referred To Contact [facility] Diagnoses Strain of right Achilles tendon, sequela Procedures PT REHAB FOLLOW UP ORDER THERAPEUTIC EXERCISES RE, EA 15 MIN. Marlon Dasilva, PT [address] [place] [address] [facility] [place] [address] [place] [id number] Referral ID Status Reason Start Date Expiration Date Visits Requested Visits Authorized [id number] Pending Review PCP Requested Referral Auto-Generate d Referral 05/20/2023 08/18/2023 1 1 Specialty Diagnoses / Procedures Referred By Contac t Referred To Contact Orthopedics Diagnoses Hand pain, left Procedures CONSULT TO ORTHOPAEDICS OFFICE/OUTPATIENT [facility] MDM 60-74 MINUTES Al Huerta APRN.HEALTH CARE LEGAL ASSISTANT [address] [place] [address] Referral ID Status Reason Start Date Expiration Date Visits Requested Visits Authorized [id number] Authorized PCP Requested Referral 04/12/2023 04/11/2024 1 1 Specialty Diagnoses / Procedures Referred By Contac t Referred To Contact [facility] Diagnoses Sprain of left ankle, unspecified ligament, initial encounter Peroneal tendinitis of left lower extremity Procedures CONSULT TO PHYSICAL THERAPY PHYSICAL THERAPY EVALUATION HIGH COMPLEX 45 MINS Sruthi Lilly [address] [place] [address] [facility] [place] [address] [place] [address] Referral ID Status Reason Start Date Expiration Date Visits Requested Visits Authorized [id number] Authorized Auto-Generat ed Referral 09/27/2022 09/26/2023 1 [...] PHYSICAL THERAPY EVALUATION HIGH COMPLEX 45 MINS iLnda Recinos MD [address] [place] [address] [facility] [place] [address] [place] [address] Referral ID Status Reason Start Date Expiration Date V isits Requested Visits Authorized [id number] Closed Auto-Generate d Referral 09/27/2022 09/26/2023 1 [...] MINS Sruthi Lilly [address] [place] [address] [facility] [address] [place] [address] Referral ID Status Reason Start Date Expiration Date V isits Requested Visits Authorized [id number] Closed Auto-Generate d Referral 09/27/2022 09/26/2023 1 1 Reason Comments Appointment Reason Comments left ankle pain [facility] Reason Onset Date Comments Refill Request 04/01/2023 Reason Comments Physical Therapy Specialty Diagnoses / Procedures Referred By Suma t Referred To Contact [facility] Diagnoses Sprain of left ankle, unspecified ligament, initial encounter Peroneal tendinitis of left lower extremity Procedures PT REHAB FOLLOW UP ORDER THERAPEUTIC EXERCISES RE, EA 15 MIN. Sruthi Lilly [address] [place] [address] [facility] [place] [address] [place] [address] Referral ID Status Reason Start Date Expiration Date Visits Requested Visits Authorized [id number] Authorized PCP Requested Referral Auto-Generate d Referral [...] 15 MIN. Sruthi Lilly [address] [place] [address] [facility] [address] [address] Referral ID Status Reason Start Date Expiration Date V isits Requested Visits Authorized [id number] Closed PCP Requested Referral Auto-Generated Referral 03/26/2023 05/27/2023 4 4 Reason Comments Physical Reason Comments New Knee Pain Specialty Diagnoses / Procedures Referred By Contac t Referred To Contact Orthopedics Diagnoses Hand pain, left Procedures CONSULT TO ORTHOPAEDICS OFFICE/OUTPATIENT NEW HIGH MDM 60-74 MINUTES Al Huerta, JANE.HEALTH CARE LEGAL ASSISTANT [address] [place] [address] Referral ID Status Reason Start Date Expiration Date V isits Requested Visits Authorized [id number] Closed PCP Requested Referral 04/12/2023 04/11/2024 1 1 Reason Comments ER F/U Jacqueline Wheaton Reason Comments Consult Reason Comments right hand [...] SPMTRY PRE&POST-BRNCDILAT ADMFarrukh Rose MD [address] [place] [address] [facility] [place] [address] [place], [place] [address], [place] [address] Referral ID Status Reason Start Date Expiration Date V isits Requested Visits Authorized [id number] Closed Auto-Generate d Referral 08/30/2023 09/28/2024 1 1 Reason Comments Established Patient Knee Pain Reason Comments Blurred Vision Both Eyes Reason Comments Forms Care Teams (unrecognized sec tion and content) Medical Genetics Director Relationship Specialty Start Date [place] [address] PCP - General 09/12/20 Medical Genetics Director Relationship Specialty Start Date [place] [address] PCP - General 09/12/20 Medical Genetics Director Relationship Specialty Start Date [place] [address] PCP - General 09/12/20 Medical Genetics Director Relationship Specialty Start Date End Date Iker Trujillo MD [address] [place] [address] PCP - General Family Medicine 01/31/21 Medical Genetics Director Relationship Specialty Start Date End Date Iker Trujillo MD [address] [place] [address] PCP - General Family Medicine 01/31/21 Medical Genetics Director Relationship Specialty Start Date End Date Iker Trujillo MD [facility] [place] [address] PCP - General Family Medicine 01/31/21 Medical Genetics Director Relationship Specialty Start Date End Date Iker Trujillo MD [address] [place] [address] PCP - General Family Medicine 01/31/21 Medical Genetics Director Relationship Specialty Start Date End Date Iker Trujillo MD [address] [place] [address] PCP - General Family Medicine 01/31/21 Medical Genetics Director Relationship Specialty Start Date End Date Iker Trujillo MD [address] [place] [address] PCP - General Family Medicine 01/31/21 Medical Genetics Director Relationship Specialty Start Date End Date Iker Trujillo MD [address] [place] [address] PCP - General Family Medicine 01/31/21 Medical Genetics Director Relationship Specialty Start Date End Date Iker Trujillo MD [address] [place] [address] PCP - General Family Medicine 01/31/21 Medical Genetics Director Relationship Specialty Start Date End Date Iker Trujillo MD [address] [place] [address] PCP - General Family Medicine 01/31/21 Medical Genetics Director Relationship Specialty Start Date End Date Iker Trujillo MD [address] [place] [address] PCP - General Family Medicine 01/31/21 Medical Genetics Director Relationship Specialty Start Date End Date Iker Trujillo MD [address] [place] [address] PCP - General Family Medicine 01/31/21 Medical Genetics Director Relationship Specialty Start Date End Date Iker Trujillo MD [address] [place] [address] PCP - General Family Medicine 01/31/21 Medical Genetics Director Relationship Specialty Start Date End Date Iker Trujillo MD [address] [place] [address] PCP - General Family Medicine 01/31/21 Medical Genetics Director Relationship Specialty Start Date End Date Iker Trujillo MD [address] [place] [address] PCP - General Family Medicine 01/31/21 Medical Genetics Director Relationship Specialty Start Date End Date Iker Trujillo MD [address] [place] [address] PCP - General Family Medicine 01/31/21 Medical Genetics Director Relationship Specialty Start Date End Date Iker Trujillo MD [address] [place] [address] PCP - General Family Medicine 01/31/21 Medical Genetics Director Relationship Specialty Start Date End Date Iker Trujillo MD [address] [place] [address] PCP - General Family Medicine 01/31/21 Medical Genetics Director Relationship Specialty Start Date End Date Iker Trujillo MD [address] [place] [address] PCP - General Family Medicine 01/31/21 Medical Genetics Director Relationship Specialty Start Date End Date Iker Trujillo MD [address] [place] [address] PCP - General Family Medicine 01/31/21 Medical Genetics Director Relationship Specialty Start Date End Date Iker Trujillo MD [address] [place] [address] PCP - General Family Medicine 01/31/21 Medical Genetics Director Relationship Specialty Start Date End Date Iker Trujillo MD [address] [facility] [place] [address] PCP - General Family Medicine 01/31/21 Medical Genetics Director Relationship Specialty Start Date End Date Iker Trujillo MD [address] [place] [address] PCP - General Family Medicine 01/31/21 Medical Genetics Director Relationship Specialty Start Date End Date Iker Trujillo MD [address] [place] [address] PCP - General Family Medicine 01/31/21 Medical Genetics Director Relationship Specialty Start Date End Date Iker Trujillo MD [address] [place] [address] PCP - General Family Medicine 01/31/21 Medical Genetics Director Relationship Specialty Start Date End Date Iker Trujillo MD [address] [place] [address] PCP - General Family Medicine 01/31/21 Medical Genetics Director Relationship Specialty Start Date End Date Iker Trujillo MD [address] [place] [address] PCP - General Family Medicine 01/31/21 Medical Genetics Director Relationship Specialty Start Date End Date Iker Trujillo MD [address] [place] [address] PCP - General Family Medicine 01/31/21 Medical Genetics Director Relationship Specialty Start Date End Date Iker Trujillo MD [address] [place] [address] PCP - General Family Medicine 01/31/21 Medical Genetics Director Relationship Specialty Start Date End Date Iker Trujillo MD [address] [facility], [place] [address] PCP - General Family Medicine 01/31/21 Medical Genetics Director Relationship Specialty Start Date End Date Iker Trujillo MD [address] [facility], [place] [address] PCP - General Family Medicine 01/31/21 Medical Genetics Director Relationship Specialty Start Date End Date Iker Trujillo MD [address] [facility], [place] [address] PCP - General Family Medicine 01/31/21 Medical Genetics Director Relationship Specialty Start Date End Date Iker Trujillo MD [address] [facility], [place] [address] PCP - General Family Medicine 01/31/21 INFORMATION SOURCE (unrecogn ized section and content) DATE CREATED AUTHOR AUTHOR'S ORGANIZ ATION 01/18/2023 [facility] DATE CREATED AUTHOR AUTHOR'S ORGANIZ ATION 08/07/2023 [facility] DATE CREATED AUTHOR AUTHOR'S ORGANIZ ATION 10/03/2023 [facility] DATE CREATED AUTHOR AUTHOR'S ORGANIZ ATION 10/09/2023 [facility] DATE CREATED AUTHOR AUTHOR'S ORGANIZ ATION 10/11/2023 [facility] Source Comments (unrecognize d section and content) In the event this informatio n is protected by the Federal Confidentiality of Alcohol and Drug Abuse Patient Records regulations: The Federal rules restrict any use of the information to criminally investigate or prosecute any alcohol or drug abuse patient.[facility] the event this information is protected by the Federal Confidentiality of Alcohol and Drug Abuse Patient Records regulations: The Federal rules restrict any use of the information to criminally investigate or prosecute any alcohol or drug abuse patient.[facility] HamiltonIn the event this information is protected by the Federal Confidentiality of Alcohol and Drug Abuse Patient Records regulations: The Federal rules restrict any use of the information to criminally investigate or prosecute any alcohol or drug abuse patient.[facility] HamiltonIn the event this information is protected by the Federal Confidentiality of Alcohol and Drug Abuse Patient Records regulations: The Federal rules restrict any use of the information to criminally investigate or prosecute any alcohol or drug abuse patient.[facility] HamiltonIn the event this information is protected by the Federal Confidentiality of Alcohol and Drug Abuse Patient Records regulations: The Federal rules restrict any use of the information to criminally investigate or prosecute any alcohol or drug abuse patient.[facility] HamiltonIn the event this information is protected by the Federal Confidentiality of Alcohol and Drug Abuse Patient Records regulations: The Federal rules restrict any use of the information to criminally investigate or prosecute any alcohol or drug abuse patient.[facility] HamiltonIn the event this information is protected by the Federal Confidentiality of Alcohol and Drug Abuse Patient Records regulations: The Federal rules restrict any use of the information to criminally investigate or prosecute any alcohol or drug abuse patient.[facility] HamiltonIn the event this information is protected by the Federal Confidentiality of Alcohol and Drug Abuse Patient Records regulations: The Federal rules restrict any use of the information to criminally investigate or prosecute any alcohol or drug abuse patient.[facility] HamiltonIn the event this information is protected by the Federal Confidentiality of Alcohol and Drug Abuse Patient Records regulations: The Federal rules restrict any use of the information to criminally investigate or prosecute any alcohol or drug abuse patient.[facility] HamiltonIn the event this information is protected by the Federal Confidentiality of Alcohol and Drug Abuse Patient Records regulations: The Federal rules restrict any use of the information to criminally investigate or prosecute any alcohol or drug abuse patient.[facility] HamiltonIn the event this information is protected by the Federal Confidentiality of Alcohol and Drug Abuse Patient Records regulations: The Federal rules restrict any use of the information to criminally investigate or prosecute any alcohol or drug abuse patient.[facility] HamiltonIn the event this information is protected by the Federal Confidentiality of Alcohol and Drug Abuse Patient Records regulations: The Federal rules restrict any use of the information to criminally investigate or prosecute any alcohol or drug abuse patient.[facility] HamiltonIn the event this information is protected by the Federal Confidentiality of Alcohol and Drug Abuse Patient Records regulations: The Federal rules restrict any use of the information to criminally investigate or prosecute any alcohol or drug abuse patient.[facility] HamiltonIn the event this information is protected by the Federal Confidentiality of Alcohol and Drug Abuse Patient Records regulations: The Federal rules restrict any use of the information to criminally investigate or prosecute any alcohol or drug abuse patient.[facility] HamiltonIn the event this information is protected by the Federal Confidentiality of Alcohol and Drug Abuse Patient Records regulations: The Federal rules restrict any use of the information to criminally investigate or prosecute any alcohol or drug abuse patient.[facility] HamiltonIn the event this information is protected by the Federal Confidentiality of Alcohol and Drug Abuse Patient Records regulations: The Federal rules restrict any use of the information to criminally investigate or prosecute any alcohol or drug abuse patient.[facility] HamiltonIn the event this information is protected by the Federal Confidentiality of Alcohol and Drug Abuse Patient Records regulations: The Federal rules restrict any use of the information to criminally investigate or prosecute any alcohol or drug abuse patient.[facility] HamiltonIn the event this information is protected by the Federal Confidentiality of Alcohol and Drug Abuse Patient Records regulations: The Federal rules restrict any use of the information to criminally investigate or prosecute any alcohol or drug abuse patient.[facility] HamiltonIn the event this information is protected by the Federal Confidentiality of Alcohol and Drug Abuse Patient Records regulations: The Federal rules restrict any use of the information to criminally investigate or prosecute any alcohol or drug abuse patient.[facility] HamiltonIn the event this information is protected by the Federal Confidentiality of Alcohol and Drug Abuse Patient Records regulations: The Federal rules restrict any use of the information to criminally investigate or prosecute any alcohol or drug abuse patient.[facility] HamiltonIn the event this information is protected by the Federal Confidentiality of Alcohol and Drug Abuse Patient Records regulations: The Federal rules restrict any use of the information to criminally investigate or prosecute any alcohol or drug abuse patient.[facility] HamiltonIn the event this information is protected by the Federal Confidentiality of Alcohol and Drug Abuse Patient Records regulations: The Federal rules restrict any use of the information to criminally investigate or prosecute any alcohol or drug abuse patient.[facility] HamiltonIn the event this information is protected by the Federal Confidentiality of Alcohol and Drug Abuse Patient Records regulations: The Federal rules restrict any use of the information to criminally investigate or prosecute any alcohol or drug abuse patient.[facility] HamiltonIn the event this information is protected by the Federal Confidentiality of Alcohol and Drug Abuse Patient Records regulations: The Federal rules restrict any use of the information to criminally investigate or prosecute any alcohol or drug abuse patient.[facility] HamiltonIn the event this information is protected by the Federal Confidentiality of Alcohol and Drug Abuse Patient Records regulations: The Federal rules restrict any use of the information to criminally investigate or prosecute any alcohol or drug abuse patient.[facility] HamiltonIn the event this information is protected by the Federal Confidentiality of Alcohol and Drug Abuse Patient Records regulations: The Federal rules restrict any use of the information to criminally investigate or prosecute any alcohol or drug abuse patient.[facility] HamiltonIn the event this information is protected by the Federal Confidentiality of Alcohol and Drug Abuse Patient Records regulations: The Federal rules restrict any use of the information to criminally investigate or prosecute any alcohol or drug abuse patient.[facility] HamiltonIn the event this information is protected by the Federal Confidentiality of Alcohol and Drug Abuse Patient Records regulations: The Federal rules restrict any use of the information to criminally investigate or prosecute any alcohol or drug abuse patient.[facility] HamiltonIn the event this information is protected by the Federal Confidentiality of Alcohol and Drug Abuse Patient Records regulations: The Federal rules restrict any use of the information to criminally investigate or prosecute any alcohol or drug abuse patient.[facility] HamiltonIn the event this information is protected by the Federal Confidentiality of Alcohol and Drug Abuse Patient Records regulations: The Federal rules restrict any use of the information to criminally investigate or prosecute any alcohol or drug abuse patient.[facility] HamiltonIn the event this information is protected by the Federal Confidentiality of Alcohol and Drug Abuse Patient Records regulations: The Federal rules restrict any use of the information to criminally investigate or prosecute any alcohol or drug abuse patient.[facility] HamiltonIn the event this information is protected by the Federal Confidentiality of Alcohol and Drug Abuse Patient Records regulations: The Federal rules restrict any use of the information to criminally investigate or prosecute any alcohol or drug abuse patient.[facility] HamiltonIn the event this information is protected by the Federal Confidentiality of Alcohol and Drug Abuse Patient Records regulations: The Federal rules restrict any use of the information to criminally investigate or prosecute any alcohol or drug abuse patient.[facility] HamiltonIn the event this information is protected by the Federal Confidentiality of Alcohol and Drug Abuse Patient Records regulations: The Federal rules restrict any use of the information to criminally investigate or prosecute any alcohol or drug abuse patient.[facility] HamiltonIn the event this information is protected by the Federal Confidentiality of Alcohol and Drug Abuse Patient Records regulations: The Federal rules restrict any use of the information to criminally investigate or prosecute any alcohol or drug abuse patient.[facility] HamiltonIn the event this information is protected by the Federal Confidentiality of Alcohol and Drug Abuse Patient Records regulations: The Federal rules restrict any use of the information to criminally investigate or prosecute any alcohol or drug abuse patient.[facility] HamiltonIn the event this information is protected by the Federal Confidentiality of Alcohol and Drug Abuse Patient Records regulations: The Federal rules restrict any use of the information to criminally investigate or prosecute any alcohol or drug abuse patient.[facility] HamiltonIn the event this information is protected by the Federal Confidentiality of Alcohol and Drug Abuse Patient Records regulations: The Federal rules restrict any use of the information to criminally investigate or prosecute any alcohol or drug abuse patient.[facility] HamiltonIn the event this information is protected by the Federal Confidentiality of Alcohol and Drug Abuse Patient Records regulations: The Federal rules restrict any use of the information to criminally investigate or prosecute any alcohol or drug abuse patient.[facility] HamiltonIn the event this information is protected by the Federal Confidentiality of Alcohol and Drug Abuse Patient Records regulations: The Federal rules restrict any use of the information to criminally investigate or prosecute any alcohol or drug abuse patient.[facility] HamiltonIn the event this information is protected by the Federal Confidentiality of Alcohol and Drug Abuse Patient Records regulations: The Federal rules restrict any use of the information to criminally investigate or prosecute any alcohol or drug abuse patient.[facility] HamiltonIn the event this information is protected by the Federal Confidentiality of Alcohol and Drug Abuse Patient Records regulations: The Federal rules restrict any use of the information to criminally investigate or prosecute any alcohol or drug abuse patient.[facility] HamiltonIn the event this information is protected by the Federal Confidentiality of Alcohol and Drug Abuse Patient Records regulations: The Federal rules restrict any use of the information to criminally investigate or prosecute any alcohol or drug abuse patient.[facility] HamiltonIn the event this information is protected by the Federal Confidentiality of Alcohol and Drug Abuse Patient Records regulations: The Federal rules restrict any use of the information to criminally investigate or prosecute any alcohol or drug abuse patient.[facility] HamiltonIn the event this information is protected by the Federal Confidentiality of Alcohol and Drug Abuse Patient Records regulations: The Federal rules restrict any use of the information to criminally investigate or prosecute any alcohol or drug abuse patient.[facility] FOR RECORDS PERTAINING TO PATIENTS WHO ARE [...] BE BASED ON THE PRIMARY CLINICAL RECORDS. [facility] [employer] [facility]. provides no warranty or guarantee of the accuracy or completeness of information in this document.
== END 2023-10-12 19:10 | disposition home or self-care (01) ==
LOC: ED 18:46
PROVIDERS: Emergency Provider Emergency Medicine; PCP Family Medicine; Visit Provider Emergency Medicine
DX: S46.911A Strain of unspecified muscle, fascia and tendon at shoulder and upper arm level, right arm, initial encounter (principal); W01.198A Fall on same level from slipping, tripping and stumbling with subsequent striking against other object, initial encounter; Y93.E6 Activity, residential relocation; I10 Essential (primary) hypertension; E07.9 Disorder of thyroid, unspecified; Z79.890 Hormone replacement therapy; Z79.899 Other long term (current) drug therapy
CPT/HCPCS: 71045; 93005; 99282

== ENCOUNTER 2023-12-04 13:59 | Emergency (ER) | payer MEDICAID, SELFPAY ==
[2023-12-04 14:00] VITALS: BP 147/79; PULSE 97; RESP 14; TEMP 36.8; O2SAT 97; BMI 42.3
--- NOTE | 2023-12-04 14:32 | RAD_ITS ---
INDICATION: injury EXAMINATION/TECHNIQUE: X-RAY - LEFT XR Hand Min 3 Views 3 VIEWS COMPARISON: Prior study dated: 04/09/2023 FINDINGS: SOFT TISSUES: No soft tissue swelling or gas. No radiopaque foreign body. BONES/JOINTS: No acute fracture or subluxation.. Normal alignment. Preservation of the joint space.. No sclerotic or destructive changes observed. RAD/Hand Min 3 Views IMPRESSION: No evidence of acute fracture or dislocation Electronically Signed: Gallito Beal MD at 15:10 EST ,
--- NOTE | 2023-12-04 14:35 | RAD_ITS ---
INDICATION: injury EXAMINATION/TECHNIQUE: X-RAY - RIGHT XR Elbow Min 3 Views COMPARISON: No relevant prior comparison study available FINDINGS: SOFT TISSUES: No soft tissue swelling or gas. No radiopaque foreign body. BONES/JOINTS: There is no displacement of the anterior or posterior fat pads. No acute fracture or subluxation. Normal alignment. Preservation of the joint space. No sclerotic or destructive changes observed. RAD/Elbow min 3 Views IMPRESSION: No evidence of acute fracture or dislocation. Electronically Signed: Gallito Beal MD at 15:11 EST ,
--- NOTE | 2023-12-04 14:56 | EX.ED.DYSGE1 ---
HPI History of Present Illness Chief Complaint: Lower Extremity Injury Informant: patient and parent (Mother) Narrative Narrative: 23-year-old female who frequently falls presenting with her mother due to falling yesterday and injuring the backside of her left hand, and slipping on wet porch on her trailer today against her right and her right elbow. She is more concerned around her right elbow, she can walk without any difficulty and bend her knee without any difficulty. She did not injure anything else. 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 Nondisplaced fracture of middle phalanx of left lesser toe(s), initial encounter for closed fracture Nondisplaced fracture of proximal phalanx of left lesser toe(s), initial encounter for closed fracture Oppositional defiant disorder Osteochondral fracture Right wrist sprain Severe headache Sprain of left index finger Sprain of right hand Sprain of right index finger Thyroid disease Undersocialized conduct disorder, aggressive type, moderate Home Medications norethindrone (contraceptive) 0.35 mg tablet 1 tab PO DAILY hormones/ control 01/21/19 [History Last Taken 04/22/19] meclizine 25 mg tablet 25 mg PO TID PRN vertigo #20 tabs 01/31/21 [Rx Last Taken Unknown] cetirizine 10 mg tablet 10 mg PO DAILY 01/01/22 [History Last Taken Unknown] levothyroxine 88 mcg tablet 88 mcg PO DAILY 05/04/22 [History Last Taken Unknown] sertraline 100 mg tablet 100 mg PO DAILY 10/19/22 [History Last Taken Unknown] albuterol sulfate 90 mcg/actuation aerosol inhaler (Ventolin HFA) 1 inh inhalation DAILY PRN PRN wheezing 12/04/23 [History Last Taken Unknown] bupropion HCl 150 mg 24 hr tablet, extended release 150 mg PO DAILY 12/04/23 [History Last Taken Unknown] cholecalciferol (vitamin D3) 25 mcg (1,000 unit) tablet (Vitamin D3) 25 mcg PO DAILY 12/04/23 [History Last Taken Unknown] hydroxyzine pamoate 50 mg capsule 50 mg PO DAILY PRN anxiety 12/04/23 [History Last Taken Unknown] pantoprazole 20 mg tablet,delayed release 20 mg PO DAILY PRN abdominal discomfort 12/04/23 [History Last Taken Unknown] Allergy/AdvReac Type Severity Reaction Status Date / Time amoxicillin [From Augmentin] Allergy Other Verified 12/04/23 14:00 amoxicillin trihydrate Allergy Other Verified 12/04/23 14:00 [From Augmentin] azithromycin Allergy Other Verified 12/04/23 14:00 clavulanic acid Allergy Other Verified 12/04/23 14:00 [From Augmentin] erythromycin base Allergy Unknown Verified 12/04/23 14:00 [From E-Mycin] potassium clavulanate Allergy Other Verified 12/04/23 14:00 [From Augmentin] ibuprofen AdvReac Nausea Verified 12/04/23 14:00 Surgical History History of ear surgery History of eye surgery Social History household members: other details: Lives with her grandmother Smoking Status: Never smoker alcohol intake: never substance use type: does not use ROS ROS ED Constitutional Constitutional ED: Denies chills or fever(s) Musculoskeletal Musculoskeletal: Reports extremity pain; Denies neck pain Integumentary Denies Abrasions, rash or wounds Neurologic Neurologic: Denies paresthesias or weakness EXAM Physical Exam Const Vital Signs: 12/04/23 14:00 Temperature 98.3 F Temperature Source Temporal Pulse Rate 97 Respiratory Rate 14 Blood Pressure 147/79 H Blood Pressure Mean 101 Pulse Ox 97 Oxygen Delivery Method Room Air Positive well nourished and well developed General Appearance ED: well developed and NAD Neck full ROM and supple Back/Spine normal ROM and normal to inspection Extremity Extremity Narrative: There is a small minor mildly tender contusion in the right knee but there is no bony patella tenderness, limited range of motion, or effusion. Neurovascular intact distally. With regards to the right elbow, she has mild tenderness at the olecranon process before range of motion including supination and pronation without any pain there were tenderness at the radial head. Neurovascular intact distally. With regards to the left hand, she has some mild tenderness at the base of the second metacarpal, she has full range of motion of the wrist without any difficulty or pain including pronation supination, no other areas of bony tenderness and no signs of trauma anywhere other than the right knee. Neuro oriented x3, no focal motor deficits and no sensory deficits noted Sensorium / Orientation: alert Psych mental status grossly normal and thought process normal Skin no wounds Rashes: no rashes MDM MDM MDM Narrative Medical decision making narrative: Patient meets [place] knee rules and does not require x-rays of the knee and she does not think she needs them anyway. I did obtain three-view x-ray of the right elbow which is negative for fracture my interpretation and three-view x-ray of the left hand which is negative for fracture on my interpretation. Patient was given Tylenol reassured and discharged home with her mom. Discharge Plan Triage Chief Complaint: Lower Extremity Injury ED Provider: Reji Henderson Dx/Rx/DC Orders Clinical Impression: Contusion of dorsum of left hand, Fall from slip, trip, or stumble, Contusion of right elbow Instructions: Bruises (Contusions) Prescriptions: No Action cetirizine 10 mg tablet 10 mg PO DAILY norethindrone (contraceptive) 0.35 MG tablet 1 tab PO DAILY meclizine 25 mg tablet 25 mg PO TID PRN (Reason: vertigo) Qty: 20 0RF levothyroxine 88 mcg tablet 88 mcg PO DAILY Patient Comments: take 1 tablet by mouth once daily before breakfast sertraline 100 mg tablet 100 mg PO DAILY pantoprazole 20 mg tablet,delayed release (DR/EC) 20 mg PO DAILY PRN (Reason: abdominal discomfort) bupropion HCl 150 mg tablet extended release 24 hr 150 mg PO DAILY cholecalciferol (vitamin D3) [Vitamin D3] 25 mcg (1,000 unit) tablet 25 mcg PO DAILY hydroxyzine pamoate 50 mg capsule 50 mg PO DAILY PRN (Reason: anxiety) albuterol sulfate [Ventolin HFA] 90 mcg/actuation HFA aerosol inhaler 1 inh inhalation DAILY PRN PRN (Reason: wheezing) Primary Care Provider: Gregor Trujillo Referrals: Gregor Trujillo MD [Primary Care Provider] - As Needed Disposition Disposition: Home, Self Care
[2023-12-04] MEDS: Acetaminophen 325 MG Tablet 650 MG PO (15:12)
--- OUTSIDE RECORDS SUMMARY | 2023-12-04 15:25 | XMS RPT_ITS | CCD ---
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 CANDELARIA BOUDREAUX DO [facility] 04-21-2023 21:59-0400 Blood Pressure Cuff Size DR CANDELARIA BOUDREAUX DO [facility] 04-21-2023 21:59-[address] CANDELARIA BOUDREAUX DO [facility] 04-21-2023 21:59-[address] CANDELARIA BOUDREAUX DO [facility] 04-21-2023 21:59-0400 Body height 170.[address] CANDELARIA BOUDREAUX DO [facility] 04-21-2023 21:59-0400 Body temperature 97.88 [degF] DR CANDELARIA BOUDREAUX DO [facility] 04-21-2023 21:59-0400 Body weight 123.[address] CANDELARIA BOUDREAUX DO [facility] 04-21-2023 21:59-0400 Diastolic Blood Pressure Non-Invasive [address] CANDELARIA BOUDREAUX DO [facility] 04-21-2023 21:59-0400 Heart rate 80 /min DR CANDELARIA BOUDREAUX DO [facility] 04-21-2023 21:59-0400 Reason For Taking VItal Signs DR CANDELARIA BOUDREAUX DO [facility] 04-21-2023 21:59-0400 Respiratory rate 18 /min DR CANDELARIA BOUDREAUX DO [facility] 04-21-2023 21:59-0400 Systolic Blood Pressure Non-Invasive [address] CANDELARIA BOUDREAUX DO [facility] 04-12-2023 11:32-0400 Body weight 122.92 kg Al Greg SOLAR POWER INSTALLER.FLUID DYNAMICIST Work Phone: [facility] 04-12-2023 11:32-0400 Diastolic blood pressure 82 mm[Hg] Al Greg SOLAR POWER INSTALLER.FLUID DYNAMICIST Work Phone: [facility] 04-12-2023 11:32-0400 Heart rate 76 /min Al Greg SOLAR POWER INSTALLER.FLUID DYNAMICIST Work Phone: [facility] 04-12-2023 11:32-0400 Respiratory rate 16 /min Al Greg SOLAR POWER INSTALLER.FLUID DYNAMICIST Work Phone: [facility] 04-12-2023 11:32-0400 Systolic blood pressure 126 mm[Hg] Al Greg SOLAR POWER INSTALLER.FLUID DYNAMICIST Work Phone: [facility] 04-07-2023 11:34-0400 Body weight 122.47 kg Mamta Tannhof SOLAR POWER INSTALLER.FLUID DYNAMICIST Work Phone: [facility] 04-07-2023 11:34-0400 Diastolic blood pressure 80 mm[Hg] Mamta Tannhof SOLAR POWER INSTALLER.FLUID DYNAMICIST Work Phone: [facility] 04-07-2023 11:34-0400 Heart rate 96 /min Mamta Tannhof SOLAR POWER INSTALLER.FLUID DYNAMICIST Work Phone: [facility] 04-07-2023 11:34-0400 Respiratory rate 16 /min Mamta Tannhof SOLAR POWER INSTALLER.FLUID DYNAMICIST Work Phone: [facility] 04-07-2023 11:34-0400 SaO2% (BldA) [Mass fraction] 95 % Mamta Tannhof SOLAR POWER INSTALLER.FLUID DYNAMICIST Work Phone: [facility] 04-07-2023 11:34-0400 Systolic blood pressure 130 mm[Hg] Mamta Tannhof SOLAR POWER INSTALLER.FLUID DYNAMICIST Work Phone: [facility] 04-06-2023 17:14-0400 Body temperature 97.39 [degF] Silvia Praisler-Wood SOLAR POWER INSTALLER.FLUID DYNAMICIST Work Phone: [facility] 04-06-2023 17:14-0400 Body weight 123.2 kg Silvia Praisler-Wood SOLAR POWER INSTALLER.FLUID DYNAMICIST Work Phone: [facility] 04-06-2023 17:14-0400 Diastolic blood pressure 88 mm[Hg] Silvia Praisler-Wood SOLAR POWER INSTALLER.FLUID DYNAMICIST Work Phone: [facility] 04-06-2023 17:14-0400 Heart rate 98 /min Silvia Praisler-Wood SOLAR POWER INSTALLER.FLUID DYNAMICIST Work Phone: [facility] 04-06-2023 17:14-0400 Respiratory rate 18 /min Silvia Praisler-Wood SOLAR POWER INSTALLER.FLUID DYNAMICIST Work Phone: [facility] 04-06-2023 17:14-0400 SaO2% (BldA) [Mass fraction] 97 % Silvia Kimler-Wood SOLAR POWER INSTALLER.FLUID DYNAMICIST Work Phone: [facility] 04-06-2023 17:14-0400 Systolic blood pressure 126 mm[Hg] Sivlia Praisler-Wood SOLAR POWER INSTALLER.FLUID DYNAMICIST Work Phone: [facility] 03-31-2023 14:06-0400 Body temperature 97.5 [degF] Ernesto Mckinney SOLAR POWER INSTALLER.FLUID DYNAMICIST Work Phone: [facility] 03-31-2023 14:06-0400 Body weight 97.98 kg Ernesto Mckinney SOLAR POWER INSTALLER.FLUID DYNAMICIST Work Phone: [facility] 03-31-2023 14:06-0400 Diastolic blood pressure 74 mm[Hg] Ernesto Mckinney SOLAR POWER INSTALLER.FLUID DYNAMICIST Work Phone: [facility] 03-31-2023 14:06-0400 Heart rate 91 /min Ernesto Hank SOLAR POWER INSTALLER.FLUID DYNAMICIST Work Phone: [facility] 03-31-2023 14:06-0400 Respiratory rate 18 /min Ernesto Mckinney SOLAR POWER INSTALLER.FLUID DYNAMICIST Work Phone: [facility] 03-31-2023 14:06-0400 SaO2% (BldA) [Mass fraction] 96 % Ernesto Mckinney SOLAR POWER INSTALLER.FLUID DYNAMICIST Work Phone: [facility] 03-31-2023 14:06-0400 Systolic blood pressure 112 mm[Hg] Ernesto Mckinney SOLAR POWER INSTALLER.FLUID DYNAMICIST Work Phone: [facility] 03-28-2023 22:19-0400 Body temperature 99.32 [degF] DR ELVIA BORREGO MD [facility] 03-28-2023 22:19-0400 Diastolic Blood Pressure Non-Invasive [address] ELVIA BORREGO MD [facility] 03-28-2023 22:19-0400 Heart rate 94 /min DR ELVIA BORREGO MD [facility] 03-28-2023 22:19-0400 Respiratory rate 18 /min DR ELVIA BORREGO MD [facility] 03-28-2023 22:19-0400 Systolic Blood Pressure Non-Invasive [address] ELVIA BORREGO MD [facility] 01-21-2023 10:50-0400 Body height 170.2 cm Ericka Larkin MD Work Phone: [facility] 01-21-2023 10:50-0400 Body mass index (BMI) [Ratio] 41.66 kg/m2 Ericka Larkin MD Work Phone: [facility] 01-21-2023 10:50-0400 Body weight 120.66 kg Ericka Larkin MD Work Phone: [facility] 01-15-2023 14:00-0400 Body height 170.2 cm LULA XIAO MD [facility] 01-15-2023 14:00-0400 Body temperature 98.06 [degF] LULA XIAO MD [facility] 01-15-2023 14:00-0400 Body weight 90.9 kg LULA XIAO MD [facility] 01-15-2023 14:00-0400 Diastolic Blood Pressure Non-Invasive 80 1 LULA XIAO MD [facility] 01-15-2023 14:00-0400 Heart rate 86 /min LULA XIAO MD [facility] 01-15-2023 14:00-0400 Respiratory rate 16 /min LULA XIAO MD [facility] 01-15-2023 14:00-0400 Systolic Blood Pressure Non-Invasive 128 1 LULA XIAO MD [facility] 01-13-2023 11:54-0400 Body height 170.2 cm Ericka Larkin MD Work Phone: [facility] [employer] 01-13-2023 11:54-0400 Body mass index (BMI) [Ratio] 41.66 kg/m2 Ericka Larkin MD Work Phone: [facility] [employer] 01-13-2023 11:54-0400 Body weight 120.66 kg Ericka Larkin MD Work Phone: [facility] [employer] 12-15-2022 23:20-0400 Diastolic Blood Pressure Non-Invasive 78 1 KIMBERLY REICHFIELD DO [facility] 12-15-2022 23:20-0400 Heart rate 91 /min KIMBERLY REICHFIELD DO [facility] 12-15-2022 23:20-0400 Reason For Taking VItal Signs KIMBERLY REICHFIELD DO [facility] 12-15-2022 23:20-0400 Respiratory rate 18 /min KIMBERLY REICHFIELD DO [facility] 12-15-2022 23:20-0400 Systolic Blood Pressure Non-Invasive 119 1 KIMBERLY REICHFIELD DO [facility] 12-15-2022 20:55-0400 Diastolic Blood Pressure Non-Invasive 84 1 KIMBERLY REICHFIELD DO [facility] 12-15-2022 20:55-0400 Heart rate 88 /min KIMBERLY REICHFIELD DO [facility] 12-15-2022 20:55-0400 Reason For Taking VItal Signs KIMBERLY REICHFIELD DO [facility] 12-15-2022 20:55-0400 Respiratory rate 18 /min KIMBERLY REICHFIELD DO [facility] 12-15-2022 20:55-0400 Systolic Blood Pressure Non-Invasive 124 1 KIMBERLY REICHFIELD DO [facility] 12-15-2022 19:25-0400 Blood Pressure Location KIMBERLY REICHFIELD DO [facility] 12-15-2022 19:25-0400 Body temperature 97.16 [degF] KIMBERLY REICHFIELD DO [facility] 12-15-2022 19:25-0400 Diastolic Blood Pressure Non-Invasive 81 1 [facility] 12-15-2022 19:25-0400 Heart rate 96 /min KIMBERLY [facility]FORM[facility]LY [facility] DO [facility] 12-15-2022 19:25-0400 Systolic Blood Pressure Non-Invasive 118 1 KIMBERLY [facility]FORM[facility]LY [facility] DO [facility] 12-15-2022 10:11-0400 Body temperature 97.88 [degF] CAMACHO DELGADO MD [facility] 12-15-2022 10:11-0400 Body weight 123 kg CAMACHO DELGADO MD [facility] 12-15-2022 10:11-0400 Diastolic Blood Pressure Non-Invasive 79 1 CAMACHO DELGADO MD [facility] 12-15-2022 10:11-0400 Heart rate 78 /min CAMACHO DELGADO MD [facility] 12-15-2022 10:11-0400 Respiratory rate 18 /min CAMACHO DELGADO MD [facility] 12-15-2022 10:11-0400 Systolic Blood Pressure Non-Invasive 124 1 CAMACHO DELGADO MD [facility] 02-17-2022 15:54-0400 Body temperature 97.81 [degF] Gaurang Nesheim DO Work Phone: [facility] 02-17-2022 15:54-0400 Diastolic blood pressure 73 mm[Hg] Gaurang Nesheim DO Work Phone: [facility] 02-17-2022 15:54-0400 Heart rate 85 /min Gaurang Nesheim DO Work Phone: [facility] 02-17-2022 15:54-0400 Respiratory rate 16 /min Gaurang Nesheim DO Work Phone: [facility] 02-17-2022 15:54-0400 SaO2% (BldA) [Mass fraction] 96 % Gaurang Nesheim DO Work Phone: [facility] 02-17-2022 15:54-0400 Systolic blood pressure 139 mm[Hg] Gaurang Nesheim DO Work Phone: [facility] 02-17-2022 14:20-0400 Body mass index (BMI) [Ratio] 41.66 kg/m2 Gaurang Nesheim DO Work Phone: [facility] 02-17-2022 14:20-0400 Body weight 120.66 kg Gaurang Nesheim DO Work Phone: [facility] 12-07-2019 19:19-0400 Body Temperature 98.4 [degF] [facility] [place] 12-07-2019 19:19-0400 BP Diastolic 88 mm[Hg] [address] [facility] [place] 12-07-2019 19:19-0400 BP Systolic 152 mm[Hg] [address] [facility] [place] 12-07-2019 19:19-0400 Pulse (Heart Rate) 92 /min [address], [place] 12-07-2019 19:19-0400 Pulse Oximetry 95 % [address] [facility] [place] 12-07-2019 19:19-0400 Respiratory Rate 20 /min [facility] [place] [place] Encounters Encounter Date Encounter Type Care Provider Facility Start: 12-02-2023 End: 12-02-2023 Patient encounter procedure Iker Trujillo MD Work Phone: [facility] Procedures Date Procedure Procedure Detail Performing Clinician Start: 08-31-2023 Brncdilat rspse spmt ry pre&post-brncdilat admn Farrukh Maxwell MD Work Phone: Start: 08-30-2023 Radiologic exam ches t 2 views Farrukh Maxwell MD Work Phone: Start: 08-23-2023 [employer] COVI D-19 VACCINE ( SEASON) AGE 12+ YR Iker Trujillo MD Work Phone: Start: 07-07-2023 INFLUENZA VACCINE, A GE 6 MO - 64 YR, QUADRIVALENT (AFLURIA, FLULAVAL, FLUZONE) Mamta Saez SOLAR POWER INSTALLER.FLUID DYNAMICIST Work Phone: Start: 03-31-2023 Radex ankle complete minimum 3 views Ernesto Mckinney SOLAR POWER INSTALLER.FLUID DYNAMICIST Work Phone: Start: 03-22-2023 Radex foot complete [...] dev cleared fda spec home use Gaurang Harding DO Work Phone: Start: 02-17-2022 Radex foot complete minimum 3 views Gaurang Marieheim DO Work Phone: Start: 12-07-2019 Radiologic examinati on tibia & fibula 2 views Contreras Lavonne Wilkins Work Phone: Plan of Treatment Date Care Activity Detail Author Start: 2050 Zoster Vaccines (1 of 2) Zoste r Vaccines (1 of 2) [facility] Start: 12-16-2030 DTaP/Tdap/Td Vaccine s (8 - Td or Tdap) DTaP/Tdap/Td Vaccines (8 - Td or Tdap) [facility] Start: 12-16-2030 Urine microalbumin profile [facility] Start: 12-01-2024 Annual PCP Team [employer] gia Disease Visit Annual PCP Team Chronic Disease Visit [facility] Start: 11-15-2024 Annual PCP Team [employer] gia Disease Visit Annual PCP Team Chronic Disease Visit [facility] Start: 08-23-2024 Annual PCP Team [employer] gia Disease Visit Annual PCP Team Chronic Disease Visit [facility] Start: 08-17-2024 Annual PCP Team [employer] gia Disease Visit Annual PCP Team Chronic Disease Visit [facility] Start: 07-07-2024 Annual PCP Team [employer] iga Disease Visit Annual PCP Team Chronic Disease Visit [facility] Start: 07-07-2024 Chlamydia Screening () Ch lamydia Screening () [facility] Immunizations Immunization Date Immunization Notes Care Provider Margaret salgado 08-23-2023 COVID-19 vaccine, ag e 12+ yr, season ([employer]) Iker Trujillo MD Work Phone: [facility] 07-07-2023 influenza, injectabl e, quadrivalent, contains preservative Mamta Saez APRN.CNP Work Phone: [facility] 10-22-2021 influenza, injectabl e, quadrivalent, contains preservative Sruthi Lilly Work Phone: [facility] 10-22-2021 influenza virus vacc ine, unspecified formulation [facility] 01-16-2021 COVID-19 original vaccine, full dose, monovalent (MODERNA) Sruthi Lilly Work Phone: [facility] 12-19-2020 COVID-19 original vaccine, full dose, monovalent (MODERNA) Sruthi [employer] Work Phone: [facility] 12-16-2020 tetanus toxoid, redu vivi diphtheria toxoid, and acellular pertussis vaccine, adsorbed Sruthi [employer] Work Phone: [facility] 06-29-2019 influenza, injectabl e, quadrivalent, preservative free Sruthi [employer] Work Phone: [facility] 07-30-2018 influenza, injectabl e, quadrivalent, preservative free [employer] Work Phone: [facility] Work Phone: 06-07-2017 influenza, injectabl e, quadrivalent, contains preservative Sruthi [employer] Work Phone: [facility] Work Phone: 06-07-2017 meningococcal polysaccharide (groups A, C, Y and W-135) diphtheria toxoid conjugate vaccine (MCV4P) [employer] Work Phone: [facility] Work Phone: 06-29-2016 influenza, injectabl e, quadrivalent, preservative free [employer] Work Phone: [facility] Work Phone: 08-21-2014 human papilloma viru s vaccine, quadrivalent [employer] Work Phone: [facility] Work Phone: 08-21-2014 influenza, injectabl e, quadrivalent, preservative free [employer] Work Phone: [facility] Work Phone: 08-04-2013 influenza virus vacc ine, unspecified formulation [employer] Work Phone: [facility] 05-02-2013 human papilloma viru s vaccine, quadrivalent [employer] Work Phone: [facility] 07-16-2012 influenza virus vacc ine, unspecified formulation [employer] Work Phone: [facility] 05-11-2012 human papilloma viru s vaccine, quadrivalent Sruthi [employer] Work Phone: [facility] 05-11-2012 Meningococcal, MCV4, unspecified conjugate formulation(groups A, C, Y and W-135) Sruthi [employer] Work Phone: [facility] 05-11-2012 tetanus toxoid, redu vivi diphtheria toxoid, and acellular pertussis vaccine, adsorbed [employer] Work Phone: [facility] 09-15-2010 influenza virus vacc ine, unspecified formulation Sruthi [employer] Work Phone: [facility] 08-08-2009 influenza virus vacc ine, unspecified formulation Sruthi [employer] Work Phone: [facility] Work Phone: 08-06-2009 novel influenza-H1N1 -09, all formulations Sruthi [employer] Work Phone: [facility] 01-09-2009 hepatitis A vaccine, unspecified formulation Sruthi [employer] Work Phone: [facility] Work Phone: 08-04-2007 influenza virus vacc ine, unspecified formulation Sruthi [employer] Work Phone: [facility] Work Phone: 05-17-2007 hepatitis A vaccine, unspecified formulation Sruthi [employer] Work Phone: [facility] Work Phone: 05-17-2007 varicella virus vaccine S[facility] [employer] Work Phone: [facility] Work Phone: 08-05-2006 influenza virus vacc ine, unspecified formulation Sruthi [employer] Work Phone: [facility] Work Phone: 06-28-2006 diphtheria, tetanus toxoids and acellular pertussis vaccine Sruthi [employer] Work Phone: [facility] Work Phone: 06-28-2006 measles, mumps and rubella virus vaccine Sruthi [employer] Work Phone: [facility] Work Phone: 06-28-2006 poliovirus vaccine, inactivated [employer] Work Phone: [facility] Work Phone: 06-07-2006 diphtheria, tetanus toxoids and pertussis vaccine Sruthi [employer] Work Phone: [facility] Work Phone: 06-07-2006 measles, mumps and rubella virus vaccine Sruthi [employer] Work Phone: [facility] Work Phone: 06-07-2006 poliovirus vaccine, inactivated [employer] Work Phone: [facility] Work Phone: 02-27-2003 hepatitis B vaccine, pediatric or pediatric/adolescent dosage [employer] Work Phone: [facility] Work Phone: 02-27-2003 pneumococcal conjuga te vaccine, 7 valent [employer] Work Phone: [facility] Work Phone: 09-04-2002 influenza virus vacc ine, unspecified formulation Sruthi [employer] Work Phone: [facility] Work Phone: 08-07-2002 influenza virus vacc ine, unspecified formulation Sruthi [employer] Work Phone: [facility] Work Phone: 07-04-2002 diphtheria, tetanus toxoids and acellular pertussis vaccine [employer] Work Phone: [facility] Work Phone: 07-04-2002 haemophilus influenz ae type b vaccine, HbOC conjugate [employer] Work Phone: [facility] Work Phone: 07-04-2002 hepatitis B vaccine, pediatric or pediatric/adolescent dosage [employer] Work Phone: [facility] Work Phone: 06-01-2002 hepatitis B vaccine, pediatric or pediatric/adolescent dosage [facility] Work Phone: [facility] Work Phone: 06-01-2002 measles, mumps and rubella virus vaccine [facility] [employer] Work Phone: [facility] Work Phone: 06-01-2002 varicella virus vaccine Sarkis blake [employer] Work Phone: [facility] Work Phone: 07-06-2001 diphtheria, tetanus toxoids and acellular pertussis vaccine [facility] [employer] Work Phone: [facility] Work Phone: 07-06-2001 haemophilus influenz ae type b vaccine, HbOC conjugate [facility] [employer] Work Phone: [facility] Work Phone: 07-06-2001 pneumococcal conjuga te vaccine, 7 valent [facility] [employer] Work Phone: [facility] Work Phone: 07-06-2001 poliovirus vaccine, inactivated Sruthi [employer] Work Phone: [facility] Work Phone: 03-31-2001 diphtheria, tetanus toxoids and acellular pertussis vaccine [facility] [employer] Work Phone: [facility] Work Phone: 03-31-2001 haemophilus influenz ae type b vaccine, HbOC conjugate Sruthi [employer] Work Phone: [facility] Work Phone: 03-31-2001 pneumococcal conjuga te vaccine, 7 valent Sruthi [employer] Work Phone: [facility] Work Phone: 03-31-2001 poliovirus vaccine, inactivated Sruthi [employer] Work Phone: [facility] Work Phone: 01-19-2001 diphtheria, tetanus toxoids and acellular pertussis vaccine [facility] Work Phone: [facility] Work Phone: 01-19-2001 haemophilus influenz ae type b vaccine, HbOC conjugate [facility] [employer] Work Phone: [facility] Work Phone: 01-19-2001 pneumococcal conjuga te vaccine, 7 valent [facility] [employer] Work Phone: [facility] Work Phone: 01-19-2001 poliovirus vaccine, inactivated [facility] [employer] Work Phone: [facility] Work Phone: Payers Date Payer Category Payer Medicaid [id number] 2019 Medicaid [id number] 2019 Private Health Insurance [id number] 2000 Unknown [id number] 2.16.8 [id number] 2000 Unknown [id number] 2.16.8 [id number] 2000 Unknown [id number] 2.16.8 [id number] 2000 Unknown [id number] 2.16.8 [id number] 2000 Unknown [id number] 2.16.8 [id number] 2000 Unknown [id number] 2.16.8 [id number] 2000 Unknown [id number] 2.16.8 [id number] 2000 Unknown [id number] 2.16.8 [id number] 2000 Unknown [id number] 2.16.8 [id number] 2000 Unknown [id number] 2.16.8 [id number] 2000 Unknown [id number] 2.16.8 [id number] Social History Date Type Detail Facility Start: 05-11-2012 End: 12-07-2019 Tobacco [facility]IS [facility] Start: 12-07-2019 End: 01-21-2023 Alcohol intake [facility] (finding) [facility] Start: 2000 Sex Assigned At Not on file [facility] Start: 05-11-2012 End: 12-07-2019 Tobacco use and exposure Smokeless tobacco non-user [facility] Work Phone: Start: 02-07-2022 End: 01-13-2023 Exposure to SARS-CoV-2 (event) Not sure [facility] [employer] Phone: Sex Assigned At Female [facility] Start: 10-23-2022 History SDOH Alcohol Frequency 1 [facility] Start: 10-23-2022 History SDOH Alcohol Std Drinks 0 [facility] Start: 01-15-2023 End: 11-26-2023 Alcohol intake Current non-drinker of alcohol (finding) [facility] Start: 04-01-2023 End: 11-26-2023 History of Social function [facility] Work Phone: Start: 04-01-2023 End: 11-26-2023 Tobacco use panel [facility] Work Phone: National Score (1-10 0), lower number is lower risk 75 [facility] Work Phone: Start: 03-03-2021 Gender identity Choose not to disclo se [facility] Start: 03-03-2021 Sexual orientation Bisexual (finding ) [facility] Functional Status Date Assessment Result Facility 10-11-2023 Functional Status ID band on, Allergy Band on, Call device within reach, Bed in low position, Wheels locked [facility] 08-24-2023 Functional Status [facility] 08-24-2023 Functional Status ID band on, Allergy Band on, Call device within reach, Bed in low position, Wheels locked, Upper/Half-Length side-rails up, Visitor at bedside, Safety level maintained [facility] 05-23-2023 Functional Status [facility] 05-23-2023 Functional Status Ambulation in [place] [facility] 04-21-2023 Functional Status [facility] 04-21-2023 Functional Status Ambulating in [place], Ambulating in room, Awake, Bathroom privileges [facility] 03-28-2023 Functional Status [facility] 01-15-2023 Functional Status Ambulating in [place], Ambulating in room, Awake [facility] 12-15-2022 Functional Status Standard Safet y ID band on, Call device within reach, Bed in low position, Wheels locked, Bedside Cart Locked, Visitor at bedside, Safety level maintained [facility] 12-15-2022 Functional Status ID band on, Allergy Band on, Call device within reach, Bed in low position, Wheels locked, Upper/Half-Length side-rails up [facility] Mental Status Date Assessment Result Facility 10-11-2023 Mental Status Oriented x 4 [facility] 08-24-2023 Mental Status Orientation Oriented x 4 [facility] 08-24-2023 Mental Status [facility] 05-23-2023 Mental Status Orientation Oriented x 4 [facility] 05-23-2023 Mental Status [facility] 04-21-2023 Mental Status Orientation Oriented x 4 [facility] 04-21-2023 Mental Status [facility] 03-28-2023 Mental Status Oriented x 4 [facility] 01-15-2023 Mental Status Oriented x 4 [facility] 12-15-2022 Mental Status Orientation Oriented x 4 [facility] 12-15-2022 Mental Status Oriented x 4 [facility] Clinical Notes 06-19-2014 to 12-02-2023 Iker Trujillo MD - 12/02/2023 2:40 PM ESTTelephone Encounter - Missy Morgan LPN - 11/29/2023 5:36 PM Veronica Menchaca DO - 11/26/2023 9:48 AM ESTPatient Instructions Note Date & Type Note [facility] 12-02-2023 Note [facility] 12-02-2023 History of Presen t illness Narrative Chief Complaint Patient presents with: Consult: Steel Erecting Pusher HPI Aide Lopez is a 23 year old adult who presents here today for referral. Pt here with Caregiver who wants pt to get referral for loom checker. Pt has seen a loom checker in the past but per guardian Prabha Aneudy stated patient refused to follow the loom checker recommendations. Pt still refuses to see a loom checker. Prabha states he has reduced pt pop increase to just one can per day. Her weight is down since 11/24, she is down 8 lbs. Prabha has been trying to control her portion sizes, limiting the macaroni and cheese she eats, no added salt, trying to get her away from fast foods. Both pt and Prabha do the grocery shopping together, they don't agree on what to buy, she wants to buy the junk foods, penaPrabha states pt will get loud and argumentative in the store especially when she wants something she shouldn't have. She will eat applesauce. Trying to get her to eat more beans and vegetables. She does not like Cauliflower. Likes the vegetables in a roast. No regular exercise, especially now that she injured her left leg. She was going to the [facility] a lot to play sports but pt stopped going when she got out of school and didn't want to get up to go. She is scheduled for surgery on 01/18/[address] Jiang. Past medical history, appointments, medications, allergies reviewed. 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 Mazariegos TYMPANOSTOMY LOCAL/TOPICAL ANESTHESIA 04/27/2010 Dr. Mazariegos Family History FAMILY HISTORY Problem Relation Age of Onset Heart Father Asthma Mother other (hearing problem) Mother Stroke Mother other (paralyzed due to accident) Sister Glaucoma Maternal Grandmother Emphysema Maternal Grandmother Asthma Maternal Grandmother Glaucoma Maternal Grandfather Glaucoma Paternal Grandmother Heart Paternal Grandmother Glaucoma Paternal Grandfather Asthma Maternal Uncle Patient Allergies ALLERGIES Allergen Reactions Augmentin [Amoxicil* Hives Clavulanic Acid Other: See Comments Erythromycin Rash Ibuprofen GI Upset Current Medications Current Outpatient Medications on File Prior to Visit Medication Sig albuterol HFA (VENTOLIN HFA) 90 mcg/actuation inhaler Inhale 2 Puffs as instructed every 4 hours as needed for wheezing/shortness of breath. lidocaine (LIDODERM) 5 % Apply 1 Patch as directed once daily. to affected area. Remove patch after 12 hours. ondansetron orally disintegrating (ZOFRAN ODT) 4 mg disintegrating tablet Q8H triamcinolone (KENALOG) 0.025 % cream Apply to affected area. Norethindrone, Contraceptive, 0.35 mg tablet DAILY cetirizine (ZYRTEC) 10 mg tablet Take 10 mg by mouth. clotrimazole (LOTRIMIN) 1 % cream Apply to affected area. fluconazole (DIFLUCAN) 150 mg tablet as needed. (Patient not taking: Reported on 11/17/2023) nitrofurantoin monohydrate and macrocrystal (MACROBID) 100 mg capsule Take by mouth. (Patient not taking: Reported on 11/17/2023) NYAMYC powder capsaicin (ZOSTRIX) 0.025 % cream Apply to affected area three times a day. buPROPion SR (WELLBUTRIN SR) 100 mg 12 hr tablet Take 100 mg by mouth two times a day. levothyroxine (SYNTHROID) 88 mcg tablet Take 1 tablet by mouth daily before breakfast. fluticasone (FLONASE) 50 mcg/actuation nasal spray Use 2 Sprays in each nostril once daily. Rinse mouth after use. (Patient taking differently: Use 2 Sprays in each nostril as needed. Rinse mouth after use.) ammonium lactate (LAC-HYDRIN) 12 % cream Apply [...] Take 1 tablet by mouth once daily. Norethindrone, Contraceptive, (ORTHO MICRONOR) 0.35 mg tablet [...] mask as well as instruct patient on inspector machined parts. (Patient taking differently: Moving and was packed away Please fit patient for new mask as well as instruct patient on inspector machined parts.) No current facility-administered medications on file prior to visit. Social History Social History Tobacco Use Smoking status: Never Smokeless tobacco: Never Vaping Use Vaping Use: Never used Substance Use Topics Alcohol use: No Drug use: No EXAM: BP 118/70 Pulse 74 Resp 16 Wt 119.9 kg (264 lb 6.4 oz) LMP 11/12/2023 (Approximate) BMI 41.41 kg/m General Appearance: Well appearing, alert, in no acute distress, well-hydrated, well nourished. and Morbidly obese. Lungs: Lungs clear to auscultation. No wheezing, rhonchi, rales.. Heart: RRR without murmur, gallop, or rubs. No ectopy. Health Maintenance List Depression Assessment due on 09/27/2023 Pap Testing due on 07/07/2024 GC (Gonorrhea) Screening (18-24) due on 07/07/2024 Meningococcal B Vaccine: Consider Based On Risk(1 of 2 - Patient Seeks Protection) due on 07/07/2024 HIV Screening due on 07/07/2024 Chlamydia Screening (18-) due on 07/07/2024 Annual PCP Team Chronic Disease Visit due on 11/15/2024 DTaP,Tdap,Td Vaccine(8 - Td or Tdap) due on 12/16/2030 HPV Vaccine Completed Influenza Vaccine Completed Hepatitis C Screening Completed Covid-19 Vaccine Completed Data reviewed None ASSESSMENT/PLAN: 1. Class 3 severe obesity with body mass index (BMI) of 40.0 to 44.9 in adult, unspecified obesity type, unspecified whether serious comorbidity present (HCC) - ICD9: 278.01, V85.41, ICD10: E66.01, Z68.41 Weight decreasing Pt refuses to see loom checker or sales representative uniforms Caregiver will continue to limit pop intake and continue with portion sizes Follow up as needed. I agree with the Chief Complaint, ROS, and Past Histories independently gathered by the clinical personal support worker and the remaining scribed note accurately describes my personal service to the patient. I spent a total of 20 minutes on the date of the service which included preparing to see the patient, [id number] patient care, completing clinical documentation, obtaining and/or reviewing separately obtained history, performing a medically appropriate examination, and counseling and educating the patient/family/caregiver. Iker Trujillo MD The documentation for this note was completed by Mary Spaulding MA acting as scribe for Iker Trujillo MD. December 02, 2023 2:34 PM. Mary Spaulding MA documented in this encounter [facility] 11-29-2023 Miscellaneous Notes Pt calling with questions regarding her upcoming surgery. Pt will call surgeons office tomorrow during office hours to discuss. Missy Morgan LPN documented in this encounter [facility] 11-26-2023 History of Presen t illness Narrative Images from the original note were not included. Follow Up Visit Chief Complaint Aide Lopez is a 23 year old adult who presents today for follow up office visit. Patient presents with: Left Knee - Knee Pain, Follow Up History of Present Illness PAIN EVALUATION 11/26/2023 0944 Pain Level: 3 Pain Location: Knee-Left Description: Aching;Dull Duration Units: Years Frequency: Intermittent Intervention/Comfort measure: -- knee brace, PT HPI: Aide Lopez is a 23 year old adult for a follow up visit left knee pain. Most of the history was obtained by legal guardian. Patient is laying on the table and states I'm tired , not answering most questions. Patient is here to discuss left knee MRI results and next steps. Patient is non-compliant with wearing knee brace, and has only gone to a few sessions of PT. Pain history is noted as above. Denies calf pain, numbness, tingling, fever, chills or other constitutional symptoms. Is there any overall improvement in your condition? No Any new injury, since being seen last: No REVIEW OF SYMPTOMS: Patient did not have, [...] of consciousness. Current Outpatient Medications Medication Sig cefdinir (OMNICEF) 300 mg capsule Take 1 capsule by mouth two times a day for 7 days. albuterol HFA (VENTOLIN HFA) 90 mcg/actuation inhaler Inhale 2 Puffs as instructed every 4 hours as needed for wheezing/shortness of breath. lidocaine (LIDODERM) 5 % Apply 1 Patch as directed once daily. to affected area. Remove patch after 12 hours. ondansetron orally disintegrating (ZOFRAN ODT) 4 mg disintegrating tablet Q8H triamcinolone (KENALOG) 0.025 % cream Apply to affected area. Norethindrone, Contraceptive, 0.35 mg tablet DAILY cetirizine (ZYRTEC) 10 mg tablet Take 10 mg by mouth. clotrimazole (LOTRIMIN) 1 % cream Apply to affected area. fluconazole (DIFLUCAN) 150 mg tablet as needed. (Patient not taking: Reported on 11/17/2023) nitrofurantoin monohydrate and macrocrystal (MACROBID) 100 mg capsule Take by mouth. (Patient not taking: Reported on 11/17/2023) NYAMYC powder capsaicin (ZOSTRIX) 0.025 % cream Apply to affected area three times a day. buPROPion SR (WELLBUTRIN SR) 100 mg 12 hr tablet Take 100 mg by mouth two times a day. levothyroxine (SYNTHROID) 88 mcg tablet Take 1 tablet by mouth daily before breakfast. fluticasone (FLONASE) 50 mcg/actuation nasal spray Use 2 Sprays in each nostril once daily. Rinse mouth after use. (Patient taking differently: Use 2 Sprays in each nostril as needed. Rinse mouth after use.) ammonium lactate (LAC-HYDRIN) 12 % cream Apply [...] Take 1 tablet by mouth once daily. Norethindrone, Contraceptive, (ORTHO MICRONOR) 0.35 mg tablet [...] mask as well as instruct patient on inspector machined parts. (Patient taking differently: Moving and was packed away Please fit patient for new mask as well as instruct patient on inspector machined parts.) No current facility-administered medications for this visit. Physical Exam Vitals: LMP 11/12/2023 Psych: Pleasant, good affect and mood General [...] deformities: left knee pain Right Knee Exam Tenderness The patient is experiencing tenderness in the lateral joint line. Range of Motion Extension: normal Flexion: normal Tests Mai: Anterior - negative Posterior - negative Drawer: Anterior - negative Posterior - negative Patellar apprehension: positive Other Erythema: absent Sensation: normal Pulse: present Swelling: none Comments: Pos j sign bilaterally, lateral tracking patella Left Knee Exam Tenderness The patient is experiencing tenderness in the lateral joint line. Range of Motion Extension: abnormal Flexion: abnormal Tests Sharon: Lateral - positive Mai: Anterior - negative Posterior - negative Drawer: Anterior - negative Posterior - negative Patellar apprehension: positive Other Erythema: absent Sensation: normal Pulse: present Swelling: none Comments: Neg homans bilaterally Assessment and Plan Radiographs: I have independently reviewed films and my findings are the same. and I have reviewed the images with the patient and family. Last MRI Knee - Impression Only MRI KNEE WO IVCON LEFT Exam End: 10/07/2023 2:07 PM (Final result) Impression: IMPRESSION: PATELLOFEMORAL COMPARTMENT DEGENERATIVE CHONDRAL CHANGES. THERE IS MILD TROCHLEAR HYPOPLASIA AND MILD LATERAL PATELLAR SUBLUXATION SUGGESTING PATELLAR TRACKING ABNORMALITY. NO ACUTE STRUCTURAL INJURY. ... Tt-tg distance 21 Impression: Encounter Diagnosis ICD-10-CM 1. Chronic pain of left knee M25.562 G89.29 2. 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 We discussed strategies for decreasing pain and improving strength, stability and motion. Patient's questions were answered in detailed. Patient verbalizes understanding and agrees with the treatment plan as discussed. Risks and benefits vs alternatives to treatment were discussed with patient. Risks including but not limited to blood loss, blood clot, infection, neurovascular injury, failure of procedure, need for revision operation, loss of life and loss of limb. Patient aware of risks and benefits and agrees to proceed with written consent for surgical intervention. Discussed invasiveness of procedure with mom and patient and overnight stay, pain, etc and long recovery. Discussed will not take away all of her pain, discussed mri findings of increased tt-tg of 21mm. Left knee arthroscopy, poss mpfl vs imbrication, open tibial tubercle osteotomy Patient aware and in agreement of plan. All questions answered. Veronica Jiang D.O. M.P.H. documented in this encounter [facility] 11-24-2023 Note [facility] 11-24-2023 Note [facility] 11-24-2023 History of Presen t illness Narrative This note was created using [employer]. Subjective Aide Lopez is a 23 year old adult. 23 year old with PMH of intellectual disability, ADHD and ODD presents today with acute onset left hand that started yesterday. Mom states she tripped and fell on the patient's hand which had a cell phone sitting on top of it. Patient was sitting down. Denies falling, LOC, and hitting head. Pertinent positives include mild bruising, mild swelling and pain with movement. Pertinent negatives include impaired skin integrity, numbness, tingling, erythema, fever, back pain, neck pain, dizziness, and headache. The history is provided by the patient. Hand Injury This is a new problem. The current episode started yesterday. The problem occurs constantly. The problem has been unchanged. Pertinent negatives include no abdominal pain, arthralgias, fatigue, fever, headaches, myalgias, neck pain, numbness, rash or visual change. Exacerbated by: movement of hand. Aide Lopez has tried acetaminophen and ice for the symptoms. The treatment provided no relief. Review of Systems Constitutional: Negative for fatigue and fever. Eyes: Negative for visual disturbance. Respiratory: Negative for shortness of breath. Gastrointestinal: Negative for abdominal pain. Musculoskeletal: Negative for arthralgias, back pain, myalgias, neck pain and neck stiffness. Patient reports small amount of swelling of right hand and pain with movement. Skin: Negative for color change and rash. Mild bruising of left hand Neurological: Negative for dizziness, light-headedness, numbness and headaches. 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 Mazariegos TYMPANOSTOMY LOCAL/TOPICAL ANESTHESIA 04/27/2010 Dr. Mazariegos ALLERGIES Augmentin [Amoxicillin-Pot Clavulanate], Clavulanic Acid, Erythromycin, and Ibuprofen MEDICATIONS cefdinir (OMNICEF) 300 mg capsule Take 1 capsule by mouth two times a day for 7 days. albuterol HFA (VENTOLIN HFA) 90 mcg/actuation inhaler Inhale 2 Puffs as instructed every 4 hours as needed for wheezing/shortness of breath. lidocaine (LIDODERM) 5 % Apply 1 Patch as directed once daily. to affected area. Remove patch after 12 hours. ondansetron orally disintegrating (ZOFRAN ODT) 4 mg disintegrating tablet Q8H triamcinolone (KENALOG) 0.025 % cream Apply to affected area. Norethindrone, Contraceptive, 0.35 mg tablet DAILY cetirizine (ZYRTEC) 10 mg tablet Take 10 mg by mouth. clotrimazole (LOTRIMIN) 1 % cream Apply to affected area. fluconazole (DIFLUCAN) 150 mg tablet as needed. (Patient not taking: Reported on 11/17/2023) nitrofurantoin monohydrate and macrocrystal (MACROBID) 100 mg capsule Take by mouth. (Patient not taking: Reported on 11/17/2023) NYAMYC powder capsaicin (ZOSTRIX) 0.025 % cream Apply to affected area three times a day. buPROPion SR (WELLBUTRIN SR) 100 mg 12 hr tablet Take 100 mg by mouth two times a day. levothyroxine (SYNTHROID) 88 mcg tablet Take 1 tablet by mouth daily before breakfast. fluticasone (FLONASE) 50 mcg/actuation nasal spray Use 2 Sprays in each nostril once daily. Rinse mouth after use. (Patient taking differently: Use 2 Sprays in each nostril as needed. Rinse mouth after use.) ammonium lactate (LAC-HYDRIN) 12 % cream Apply [...] Take 1 tablet by mouth once daily. Norethindrone, Contraceptive, (ORTHO MICRONOR) 0.35 mg tablet [...] mask as well as instruct patient on inspector machined parts. (Patient taking differently: Moving and was packed away Please fit patient for new mask as well as instruct patient on inspector machined parts.) FAMILY HISTORY Problem Relation Age of Onset Heart Father Asthma Mother other (hearing problem) Mother Stroke Mother other (paralyzed due to accident) Sister Glaucoma Maternal Grandmother Emphysema Maternal Grandmother Asthma Maternal Grandmother Glaucoma Maternal Grandfather Glaucoma Paternal Grandmother Heart Paternal Grandmother Glaucoma Paternal Grandfather Asthma Maternal Uncle Social History Tobacco Use Smoking status: Never Smokeless tobacco: Never Vaping Use Vaping Use: Never used Substance Use Topics Alcohol use: No Drug use: No Objective BP 126/78 Pulse 76 Temp 36.1 C (96.9 F) Resp 16 Wt 123.4 kg (272 lb) LMP 11/12/2023 (Approximate) SpO2 96% BMI 42.60 kg/m Physical Exam Vitals reviewed. Constitutional: General: Aide Lopez is awake. Aide Lopez is not in acute distress. Appearance: Normal appearance. Aide Lopez is normal weight. Aide Lopez is not ill-appearing, toxic-appearing or diaphoretic. HENT: Head: Normocephalic. Cardiovascular: Rate and Rhythm: Normal rate and regular rhythm. Pulses: Normal pulses. Radial pulses are 2+ on the left side. Heart sounds: Normal heart sounds, S1 normal and S2 normal. Heart sounds not distant. No murmur heard. No friction rub. No gallop. Pulmonary: Effort: Pulmonary effort is normal. No tachypnea, bradypnea, accessory muscle usage, prolonged expiration or respiratory distress. Breath sounds: Normal breath sounds. No stridor or decreased air movement. No decreased breath sounds, wheezing, rhonchi or rales. Chest: Chest wall: No tenderness. Musculoskeletal: General: Signs of injury present. No swelling or deformity. Normal range of motion. Right shoulder: Normal. Left shoulder: Normal. No swelling, deformity, effusion, laceration, tenderness or bony tenderness. Normal range of motion. Normal strength. Right upper arm: Normal. Left upper arm: Normal. No swelling, edema, deformity, lacerations, tenderness or bony tenderness. Right elbow: Normal. Left elbow: Normal. No swelling, deformity, effusion or lacerations. Normal range of motion. No tenderness. Right forearm: Normal. Left forearm: Normal. No swelling, edema, deformity, lacerations, tenderness or bony tenderness. Right wrist: Normal. Left wrist: Normal. No swelling, deformity, effusion, lacerations, tenderness, bony tenderness, snuff box tenderness or crepitus. Normal range of motion. Normal pulse. Right hand: Normal. Left hand: Tenderness and bony tenderness present. No swelling, deformity or lacerations. Normal range of motion. Normal strength. Normal sensation. Normal capillary refill. Normal pulse. Cervical back: Normal range of motion and neck supple. No rigidity or tenderness. Comments: Bony tenderness over base of 2nd and 3rd metacarpals. Mild ecchymosis noted over area. ROM of fingers, hands, and wrists intact. No edema or erythema. Skin integrity intact. Skin: General: Skin is warm and dry. Capillary Refill: Capillary refill takes less than 2 seconds. Coloration: Skin is not jaundiced or pale. Findings: Bruising present. No erythema, lesion or rash. Neurological: General: No focal deficit present. Mental Status: Aide Lopez is alert and oriented to person, place, and time. Sensory: No sensory deficit. Motor: No weakness. Coordination: Coordination normal. Psychiatric: Mood and Affect: Mood normal. Behavior: Behavior normal. Behavior is cooperative. Thought Content: Thought content normal. Judgment: Judgment normal. Assessment and Plan ASSESSMENT/PLAN: 1. Pain of left hand - ICD9: 729.5, ICD10: M79.642 - Acute left hand pain that started yesterday. Mom states she tripped and fell on the patient's hand which had a cell phone sitting on top of it. - LCTA, bony tenderness of 2nd and 3rd metacarpals with mild ecchymosis, cap refill <2 seconds, sensation intact, ROM intact REVIEW OF PATIENTS CHART REVEALS MULTIPLE XRAYS DISCUSSED PROS AND CONS WITH PATIENT PATIENT ENDORSES SHE IS CONCERNED FOR A FRACTURE - XR HAND GENERAL 3V PA/LAT/OBL LEFT- No acute fracture or dislocation identified. Joint spaces preserved. - Offered brace for support, patient declined. Latricia wrap applied per pt request. Cap refil <2 after application. - OTC analgesia prn - RICE - Follow-up with PCP if pain does not improve Emily Wheeler TEACHING PROVIDER (Physician/PA/SOLAR POWER INSTALLER) NOTE OF PERSONAL INVOLVEMENT IN CARE: I have personally seen and examined the patient and performed the medical decision-making components. I have reviewed the Advanced Practice Registered Nurse (SOLAR POWER INSTALLER) Student's documentation and verified the findings in the note as written. Any additions or changes are noted in bold/italics. Signature: Michelle Glover Date: 11/24/2023 Time: 4:15 PM documented in this encounter [facility] 11-23-2023 Note [facility] 11-23-2023 History of Presen t illness Narrative Subjective Ear Pain Associated symptoms include congestion. Pertinent negatives include no chills, coughing, fever, headaches, myalgias or sore throat. Aide Lopez is a 23 year old adult who presents with right ear pain for the past day. Overnight she had a lot of pain She has not had a fever. She took some tylenol She has had some nasal congestion. No cough. Review of Systems Constitutional: Negative for chills and fever. HENT: Positive for congestion and ear pain. Negative for sore throat. Respiratory: Negative for cough. Cardiovascular: Negative. Musculoskeletal: Negative for myalgias. Skin: Negative. Neurological: Negative for headaches. 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 Mazariegos TYMPANOSTOMY LOCAL/TOPICAL ANESTHESIA 04/27/2010 Dr. Mazariegos ALLERGIES Augmentin [Amoxicillin-Pot Clavulanate], Clavulanic Acid, Erythromycin, and Ibuprofen MEDICATIONS albuterol HFA (VENTOLIN HFA) 90 mcg/actuation inhaler Inhale 2 Puffs as instructed every 4 hours as needed for wheezing/shortness of breath. lidocaine (LIDODERM) 5 % Apply 1 Patch as directed once daily. to affected area. Remove patch after 12 hours. ondansetron orally disintegrating (ZOFRAN ODT) 4 mg disintegrating tablet Q8H triamcinolone (KENALOG) 0.025 % cream Apply to affected area. cetirizine (ZYRTEC) 10 mg tablet Take 10 mg by mouth. clotrimazole (LOTRIMIN) 1 % cream Apply to affected area. NYAMYC powder capsaicin (ZOSTRIX) 0.025 % cream Apply to affected area three times a day. buPROPion SR (WELLBUTRIN SR) 100 mg 12 hr tablet Take 100 mg by mouth two times a day. levothyroxine (SYNTHROID) 88 mcg tablet Take 1 tablet by mouth daily before breakfast. fluticasone (FLONASE) 50 mcg/actuation nasal spray Use 2 Sprays in each nostril once daily. Rinse mouth after use. (Patient taking differently: Use 2 Sprays in each nostril as needed. Rinse mouth after use.) ammonium lactate (LAC-HYDRIN) 12 % cream Apply [...] Take 1 tablet by mouth once daily. Norethindrone, Contraceptive, (ORTHO MICRONOR) 0.35 mg tablet [...] mask as well as instruct patient on inspector machined parts. (Patient taking differently: Moving and was packed away Please fit patient for new mask as well as instruct patient on inspector machined parts.) cefdinir (OMNICEF) 300 mg capsule Take 1 capsule by mouth two times a day for 7 days. Norethindrone, Contraceptive, 0.35 mg tablet DAILY fluconazole (DIFLUCAN) 150 mg tablet as needed. (Patient not taking: Reported on 11/17/2023) nitrofurantoin monohydrate and macrocrystal (MACROBID) 100 mg capsule Take by mouth. (Patient not taking: Reported on 11/17/2023) FAMILY HISTORY Problem Relation Age of Onset Heart Father Asthma Mother other (hearing problem) Mother Stroke Mother other (paralyzed due to accident) Sister Glaucoma Maternal Grandmother Emphysema Maternal Grandmother Asthma Maternal Grandmother Glaucoma Maternal Grandfather Glaucoma Paternal Grandmother Heart Paternal Grandmother Glaucoma Paternal Grandfather Asthma Maternal Uncle Social History Tobacco Use Smoking status: Never Smokeless tobacco: Never Vaping Use Vaping Use: Never used Substance Use Topics Alcohol use: No Drug use: No Objective Physical Exam Vitals and nursing note reviewed. Constitutional: Appearance: Normal appearance. HENT: Right Ear: Ear canal and external ear normal. Tympanic membrane is erythematous and bulging. Left Ear: Tympanic membrane, ear canal and external ear normal. Nose: Nose normal. Mouth/Throat: Pharynx: Uvula midline. Cardiovascular: Rate and Rhythm: Normal rate. Pulmonary: Effort: Pulmonary effort is normal. Musculoskeletal: Cervical back: Neck supple. Lymphadenopathy: Cervical: No cervical adenopathy. Skin: General: Skin is warm and dry. Findings: No erythema or rash. Neurological: Mental Status: Aide Lopez is alert. ASSESSMENT/PLAN: 1. Other acute nonsuppurative otitis media of right ear, recurrence not specified - ICD9: 381.00, ICD10: H65.191 - Will begin treatment with as per antibiotic as written, see orders - Supportive care with plenty of fluids, rest, and analgesia prn. - CEFDINIR 300 MG CAPSULE - Follow-up with your PCP in 3-5 days if symptoms have not improved or sooner if symptoms worsen - Discussed red flags and need for immediate medical evaluation if any occur. - Discussed supportive care treatment with fluids, rest and analgesia. - Discussed expected course of illness Silvia Mireles APRN.FLUID DYNAMICIST documented in this encounter [facility] 11-23-2023 Instructions Silvia Mireles APRN.FLUID DYNAMICIST - 11/23/2023 4:07 PM EST ASSESSMENT/PLAN: 1. Other acute nonsuppurative otitis media of right ear, recurrence not specified - ICD9: 381.00, ICD10: H65.191 - Will begin treatment with as per antibiotic as written, see orders - Supportive care with plenty of fluids, rest, and analgesia prn. - CEFDINIR 300 MG CAPSULE - Follow-up with your PCP in 3-5 days if symptoms have not improved or sooner if symptoms worsen - Discussed red flags and need for immediate medical evaluation if any occur. - Discussed supportive care treatment with fluids, rest and analgesia. - Discussed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 medical care. Always follow your healthcare professional's instructions. Follow Up Care 08/24/2023 15:57:06 With:IKER TRUJILLO MD Address: [address] [place] [id number]- When:2-4 days [facility] 08-24-2023 Note Discharge Instructions Thank you for allowing [facility] to assist you with your healthcare needs. [...] MD When Within 2-4 days Where: [address] [place] [id number]- Allergies Augmentin (Ibuprofen) erythromycin ibuprofen Medications Please [...] body part Frequent bruising for unknown reasons 7942-7362 The [employer]. [address] [place] [address]. All rights reserved. This information is not intended as a substitute for professional medical care. Always follow your healthcare professional's instructions. Additional Information VACCINATE! IT SAVES LIVES! Members of the community who have not yet received the COVID-19 vaccine and would like to receive it can visit one of [facility] vaccine clinics. There are many vaccine clinic locations within the [facility]. For locations and available times, please visit [email or web address] [email or web address] It is important to note that some COVID mobile vaccine clinics are held outdoors and may be canceled in rainy or stormy conditions. To learn more about pediatric vaccinations (ages 5-11), we invite you to visit the [facility] webpage. https://www.[facility].org/p ages/0587-Rbzfb-Etartgftvzl-Freq spgskb-Hrgqt-Glwqinkka.html To learn more about the COVID-19 vaccine, we invite you to visit the CDC website for a list of frequently asked questions. https://www.cdc.gov/coronavirus/ 2019-ncov/vaccines/faq.html [facility] Patient Portal Access Instructions: Stay connected with your healthcare team and access your personal medical information anytime with the [facility] Patient Portal. If you would like a full copy of your medical records please contact the [facility] Medical Records Department Wednesday through Wednesday between 8a.m. and 4:30p.m. Please follow the directions below to access the portal: 1.Access the email account you provided upon registration to the [facility].2.Look for an invitation email from [facility].3.Open the email and access the invitation link: Accept Invitation to [facility].Fill in the required harrington to create your account. Sign into www.Codementor with your username and password that you [...] you will allow to register on the [employer] Patient Portal for access to your information. You can also access the [employer] Patient Portal on the Littlecast. Simply click on Health Records under Health Data and then click on the [facility] logo. HOW TO SAFELY DISPOSE OF PRESCRIPTION [...] Call your local pharmacy or go to http://Davia.[email or web address] to find one close to you.3.Make use of household items: Use cat litter or old coffee grounds to dispose medications if other options are not available. Mix your drugs with these household products, seal them in an airtight container and throw it into the garbage. Call [facility]: [phone] to be sure your drugs can be [...] and explained to me and IAIDE LOPEZ M understand my current condition and have read and understand these discharge instructions. I have received a written copy of the plan/instructions. If I have questions, I am aware that I should contact my doctor. Patient/Endless Steamer Tender Signature: Date/Time: Relationship to Patient: Witness Name/Signature: Date/Time: [facility] 08-24-2023 Note ORIGINAL EXAMINATION: TWO XRAY VIEWS [...] 08/24/2023 4:53:17 PM Ordering Provider: PRABHU PARKS [facility] 08-20-2023 Note [facility] 08-20-2023 History of Presen t illness Narrative Program_ID:[id number] Access Code: [email or web address] URL: [email or web address] Date: 08-20-2023 Prepared By: Marlon Dasilva Program [...] and walking in 6 weeks or less [place] in home exercise program. Increased strength of RLE to 5/5 for ease of chores, stairs, and transfers Patient Goals: Stop the pain Planned Interventions, Frequency, and Duration: Current Frequency: 1x every other week Duration: 4 weeks Total Number of Visits Planned: 2 Planned Treatment Interventions: Therapeutic exercise (65024), Neuromuscular re-education (88497), Manual therapy (33615), Self-group home management (16145), Patient/Family/Caregiver Education PLAN FOR NEXT VISIT: NILE [...] Marlon Dasilva PT documented in this encounter [facility] 08-17-2023 Note HNO ID: [id number] Author: Ingrid De Dios RT(R) Service: Radiology Author Type: Technologist Type: Progress Notes Filed: 08/17/2023 3:06 PM Note Text: [facility] 08-17-2023 Note [facility] 08-13-2023 Note [facility] 08-13-2023 History of Presen t illness Narrative [...] mask as well as instruct patient on inspector machined parts. lidocaine (LIDOCAINE PAIN RELIEF) 4 % patch [...] WRIST GENERAL 3V PA/LAT/OBL LEFT Ernesto Mckinney APRN.FLUID DYNAMICIST documented in this encounter [facility] 08-06-2023 Note [facility] 08-06-2023 Note [facility] 08-05-2023 Miscellaneous Notes ----- Message from Kajal [...] which facility was the patient seen at: [facility] Was an appointment scheduled (Y/N): n/a Person calling if other than patient: n/a Return call to if other than patient: n/a Best contact number: [phone] Thank you, Kajal Olson August 05, 2023 10:39 AM documented in this encounter [facility] 07-16-2023 Note [facility] 07-16-2023 History of Presen t illness Narrative [...] straight leg raise. Imaging: Plain films from [facility] are personally reviewed by me [...] MD FAO Orthopaedic Surgery and Sports Medicine [facility] Sports Medicine quality control technician [facility] [employer] Returner, Orthopaedic Sports Medicine Fellowship [facility] Orthopaedic and Rheumatologic [place] documented in this encounter [facility] 07-07-2023 Note [facility] 07-07-2023 History of Presen t illness Narrative [...] mask as well as instruct patient on inspector machined parts. lidocaine (LIDOCAINE PAIN RELIEF) 4 % patch [...] APRN.CNP This note was partially generated using [employer] voice recognition system. Note was reviewed for accuracy. There may be minor misspellings or grammar miscues with [employer] voice recognition. documented in this encounter [facility] 07-07-2023 Instructions Mamta Saez APRN.CNP [...] Promotion: - Eat healthy -- go to Kin[employer] Social.gov to get started - Have a yearly [...] - Wear sunscreen documented in this encounter [facility] 07-07-2023 Miscellaneous Notes Left vm [...] called in to schedule an appointment with [facility] for left leg concern. Pt stated [...] other than patient: n Best contact number: [phone] Thank you, Adeel Harris July 02, 2023 12:59 PM documented in this encounter [facility] 06-23-2023 Note HNO ID: [id number] Author: Luis Angel Beckman DO Service: ? [...] into the chart. Luis Angel Beckman DO [facility] 06-22-2023 Note HNO ID: [id number] Author: Milan Forrest DO Service: ? Author Type: Physician Type: Progress Notes Filed: 06/22/2023 5:46 PM Note Text: HPI: Aide Lopez presented to Orthopedic office for right knee pain/swelling Seen in ER 06/04/23 Admits disagreement with grandfather and fell on stairs Thinks knee might have gotten twisted Seen at [facility] No xrays of knee just on [...] mask as well as instruct patient on inspector machined parts. lidocaine (LIDOCAINE PAIN RELIEF) 4 % patch [...] cyanosis. Neuro: Ther (more content not included)... [facility] 06-22-2023 Note HNO ID: [id number] Author: Samuel Sexton Tech Service: ? Author Type: Patent Attorney Type: Progress Notes Filed: 06/22/2023 5:46 PM [...] 7/10 Pain at times up to : /10 Seen for this injury already: ER Previous treatment: 05/21/20 Previous imagin05/21/20 Previous surgery/fracture: no Previous injection: no Additional History related to concern: no [facility] 06-18-2023 Miscellaneous Notes Patient already scheduled to see Dr. Forrest for Right leg. Patient is scheduled to see her on 06/22 @1:30 pm at [facility]. Yinka Fonseca Tea Bag Machine Tender Geraldine ----- Message from Sneha Bruno sent [...] was the patient seen at: somewhere in [facility] Was an appointment scheduled (Y/N): n Person calling if other than patient: n/a Return call to if other than patient: Prabha Amado (mother) Best contact number: [phone] Thank you, Sneha Bruno June 16, 2023 12:52 PM documented in this encounter [facility] 05-23-2023 Hospital Discharg e instructions [...] with soap and water or use alcohol-based criminalist to prevent the spread of infection. Wash your hands after touching anyone who is sick. Wash your hands or use alcohol-based criminalist after using the toilet and before meals. [...] Keep uncooked meats away from cooked and ojntx-vp-enz foods. Medicine You may use acetaminophen or [...] directed by your healthcare provider Kaleb muñoz 9709-4909 The [employer]. [address] [place] [address]. All rights reserved. This information is not intended as a substitute for professional medical care. Always follow your healthcare professional's instructions. Follow Up Care 05/23/2023 19:00:11 With:IKER TRUJILLO MD Address: [address] [place] [address]- When:2-4 days [facility] 05-23-2023 Emergency department Discharge summary Discharge Instructions Thank you for allowing [facility] to assist you with your healthcare needs. The following is important discharge information regarding your hospital visit. Diagnosis from Today's Visit Gastroenteritis Nausea What to Do Next Instructions from Your Care Team No qualifying data available. Post Acute Orders No qualifying data available. You Need to Schedule the Following Appointments Follow Up with IKER TRUJILLO MD When Within 2-4 days Where: [address] [facility] [address] Allergies Augmentin (Ibuprofen) erythromycin ibuprofen Medications Please [...] with soap and water or use alcohol-based criminalist to prevent the spread of infection. Wash your hands after touching anyone who is sick. Wash your hands or use alcohol-based criminalist after using the toilet and before meals. [...] Keep uncooked meats away from cooked and mgtid-io-xai foods. Medicine You may use acetaminophen or [...] directed by your healthcare provider Kaleb muñoz 6860-9194 The [employer]. [address] [place] [address]. All rights reserved. This information is not intended as a substitute for professional medical care. Always follow your healthcare professional's instructions. Additional Information VACCINATE! IT SAVES LIVES! Members of the community who have not yet received the COVID-19 vaccine and would like to receive it can visit one of [facility] vaccine clinics. There are many vaccine clinic locations within the [facility]. For locations and available times, please visit [email or web address] gov/. It is important to note that some COVID mobile vaccine clinics are held outdoors and may be canceled in rainy or stormy conditions. To learn more about pediatric vaccinations (ages 5-11), we invite you to visit the [facility] webpage. https://www.Manyet[employer].org/p ages/0445-Omext-Wkmexwkrgtr-Freq tltwzh-Cncfy-Uewmzcyur.html To learn more about the COVID-19 vaccine, we invite you to visit the CDC website for a list of frequently asked questions. https://www.cdc.gov/coronavirus/ 2019-ncov/vaccines/faq.html [facility] Patient Portal Access Instructions: Stay connected with your healthcare team and access your personal medical information anytime with the [facility] Patient Portal. If you would like a full copy of your medical records please contact the [facility] Medical Records Department Wednesday through Wednesday between 8a.m. and 4:30p.m. Please follow the directions below to access the portal: 1.Access the email account you provided upon registration to the [facility].2.Look for an invitation email from [facility].3.Open the email and access the invitation link: Accept Invitation to [facility]4.Fill in the required harrington to create your account. Sign into www.Codementor with your username and password that you [...] you will allow to register on the [employer] Patient Portal for access to your information. You can also access the [employer] Patient Portal on the Littlecast. Simply click on Health Records under Health Data and then click on the [facility] logo. HOW TO SAFELY DISPOSE OF PRESCRIPTION [...] Call your local pharmacy or go to http://Davia.SolveBoard/[email or web address] to find one close to you.3.Make use of household items: Use cat litter or old coffee grounds to dispose medications if other options are not available. Mix your drugs with these household products, seal them in an airtight container and throw it into the garbage. Call [facility]: [phone] to be sure your drugs can be [...] aware that I should contact my doctor. Patient/Endless Steamer Tender Signature: Date/Time: Relationship to Patient: Witness Name/Signature: Date/Time: [facility] 05-20-2023 Note [facility] 05-20-2023 Miscellaneous Notes Addended by: MARLON DASILVA on: 05/20/2023 04:24 PM Modules accepted: Orders documented in this encounter [facility] 05-20-2023 History of Presen t [...] Planned: 2 Planned Treatment Interventions: Therapeutic exercise (11382), Neuromuscular re-education (65973), Manual therapy (40017), Self-group home management (26114), Patient/Family/Caregiver Education PLAN FOR NEXT VISIT: Check-up [...] Marlon Dasilva PT documented in this encounter [facility] 05-19-2023 Note [facility] 05-19-2023 Instructions Mamta Saez APRN.FLUID DYNAMICIST - 05/19/2023 2:12 PM EDT Viral illness. [...] as tea, flat jose l alphonso or lemon-solomon soda, broth and gelatin. -If liquids are [...] decreased urination, develop. documented in this encounter [facility] 05-19-2023 History of Presen t [...] mask as well as instruct patient on inspector machined parts. 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 - Continue supportive [...] APRN.COOPER This note was partially generated using [employer] voice recognition system. Note was reviewed for accuracy. There may be minor misspellings or grammar miscues with [employer] voice recognition. documented in this encounter [facility] 05-11-2023 Note [facility] 05-11-2023 Note HNO ID: [id number] Author: Raissa Mooney RN Service: ? Author Type: ? Type: Progress Notes Filed: 05/13/2023 7:49 AM Note Text: Patient presents with: Right Great Toe - Follow Up, Nail Check Patient is with her legal guardian Prabha Amado. [facility] 05-11-2023 Instructions Sruthi Lilly - 05/11/2023 4:05 PM EDT Recommend wearing lace up tennis shoe, ie asics, new balance or hoka or alvarado. Avoid sandals or crocks or hey dudes Wear heel lift to both shoes Ice ankle x 10 minutes twice daily. Recommend topical antibotic cream to left leg Stop picking at scabs documented in this encounter [facility] 05-11-2023 History of Presen t [...] 5.6 4.3 - 5.6 % Final Comment: [place] [employer] guidelines indicate that patients with [...] mask as well as instruct patient on inspector machined parts. lidocaine (LIDOCAINE PAIN RELIEF) 4 % patch [...] guardian Prabha Amado. documented in this encounter [facility] 05-03-2023 Note [facility] 05-03-2023 Note [facility] 05-03-2023 Note HNO ID: [id number] Author: Elisabeth Patterson RN Service: ? Author Type: Registered Nurse Type: Progress Notes Filed: 05/04/2023 7:28 AM Note Text: Patient presents with: Right Foot - Established Patient: Growth on bottom of foot [facility] 05-03-2023 History of Presen t illness Narrative [...] 5.6 4.3 - 5.6 % Final Comment: [place] [employer] guidelines indicate that patients with [...] 11/20/2008 Menarche 07/09 MENTAL RETARDATION NOS 11/20/2008 ROSLEINE (obstructive sleep apnea) 02/20/2010 Shoulder pain 05/09/2014 [...] mask as well as instruct patient on inspector machined parts. lidocaine (LIDOCAINE PAIN RELIEF) 4 % patch [...] bottom of foot documented in this encounter [facility] 04-27-2023 Note [facility] 04-27-2023 History of Presen t illness Narrative [...] Minutes (timed/untimed): 29 Session Start Time : 174 Session Stop Time : 1809 Pt arrives 10 min late to this appointment Marlon Dasilva PT documented in this encounter [facility] 04-25-2023 Miscellaneous Notes Left message for patient with negative results and recommendations.Hillary Weber LPN Call patient and let her know her urine culture did not reveal any significant bacterial growth indicating UTI. If antibiotic is helping, she may finish it. If it is not helping, she may discontinue it. Follow-up with PCP. documented in this encounter [facility] 04-23-2023 Note [facility] 04-22-2023 Miscellaneous Notes Per phone notes, TC to Prabha, patients guardian to obtain medical information for patients upcoming appointment. Prabha states patient was in an accident in January and seen at [facility], headaches have been happening since then (about 3 months). Of note, Prabha was not aware that patient had scheduled appointment and was asking about the date and time. Prabha was unable to provide any detailed medical information, stating that doctors at [facility] told her headaches could be from [...] Michelle Carolina LPN documented in this encounter [facility] 04-22-2023 Hospital Discharg e instructions [...] foods again, start with small amounts of xfpw-bs-ccpyqj, low-fat foods. These include apple sauce, toast, [...] increase stomach acid. Don't use aspirin or sqzp-tym-sbhfmnq pain and fever medicines, if possible. This includes nonsteroidal anti-inflammatory drugs (NSAIDs). Lose excess weight. Finish eating at least 2 hours before you go to bed or lie down. Raise the head of your bed. [id number] The [employer]. [address] [place] [address], [place] [address]. All rights reserved. This information is not intended as a substitute for professional medical care. Always follow your healthcare professional's instructions. Follow Up Care 04/21/2023 21:43:45 With:IKER TRUJILLO MD Address: [address] [place] [address]- [facility]:2[facility] Note Discharge Instructions Thank you for allowing [facility] to assist you with your healthcare needs. The following is important discharge information regarding your hospital visit. Diagnosis from Today's Visit Abdominal pain What to Do Next Instructions from Your Care Team No qualifying data available. Post Acute Orders No qualifying data available. You Need to Schedule the Following Appointments Follow Up with IKER TRUJILLO MD When Within 2-4 days Where: [address] [place] [id number]- Allergies Augmentin (Ibuprofen) erythromycin ibuprofen Medications Please [...] foods again, start with small amounts of unsn-ks-xpagbj, low-fat foods. These include apple sauce, toast, [...] increase stomach acid. Don't use aspirin or nzwd-nhp-lsltipe pain and fever medicines, if possible. This includes nonsteroidal anti-inflammatory drugs (NSAIDs). Lose excess weight. Finish eating at least 2 hours before you go to bed or lie down. Raise the head of your bed. 8176-1313 The [employer]. [address] [place] [address], [place] [address]. All rights reserved. This information is not intended as a substitute for professional medical care. Always follow your healthcare professional's instructions. Additional Information VACCINATE! IT SAVES LIVES! Members of the community who have not yet received the COVID-19 vaccine and would like to receive it can visit one of [facility] vaccine clinics. There are many vaccine clinic locations within the [facility]. For locations and available times, please visit [email or web address] [email or web address] It is important to note that some COVID mobile vaccine clinics are held outdoors and may be canceled in rainy or stormy conditions. To learn more about pediatric vaccinations (ages 5-11), we invite you to visit the [facility] webpage. https://www.[facility].org/p ages/6245-Ehhml-Wqprmegfalb-Freq inyqtx-Stkjc-Ofntbrlih.html To learn more about the COVID-19 vaccine, we invite you to visit the CDC website for a list of frequently asked questions. https://www.cdc.gov/coronavirus/ 2019-ncov/vaccines/faq.html [employer] Patient Portal Access Instructions: Stay connected with your healthcare team and access your personal medical information anytime with the [facility] Patient Portal. If you would like a full copy of your medical records please contact the [facility] Medical Records Department Wednesday through Wednesday between 8a.m. and 4:30p.m. Please follow the directions below to access the portal: 1.Access the email account you provided upon registration to the hospital.2.Look for an invitation email from [facility].3.Open the email and access the invitation link: Accept Invitation to [facility]4.Fill in the required harrington to create your account. Sign into [email or web address] with your username and password that you [...] you will allow to register on the [facility] Patient Portal for access to your information. You can also access the [facility] Patient Portal on the [employer] adrianna. Simply click on Health Records under Health Data and then click on the [facility] logo. HOW TO SAFELY DISPOSE OF PRESCRIPTION [...] Call your local pharmacy or go to http://Davia.[email or web address]/[email or web address] to find one close to you.3.Make use of household items: Use cat litter or old coffee grounds to dispose medications if other options are not available. Mix your drugs with these household products, seal them in an airtight container and throw it into the garbage. Call [facility]: [phone] to be sure your drugs can be [...] been reviewed and explained to me and JOHN Gabriel HALEY M understand my current condition and have read and understand these discharge instructions. I have received a written copy of the plan/instructions. If I have questions, I am aware that I should contact my doctor. Patient/Endless Steamer Tender Signature: Date/Time: Relationship to Patient: Witness Name/Signature: Date/Time: [facility] 04-12-2023 Miscellaneous Notes Fall was yesterday 04-11-23 not 04-07-23. Jimena Bangura LPN Pt called in and requested to have the referral to Ortho faxed to [facility]. Hand pain and swelling. Pt was seen in the office today 04-12-23 after having a fall yesterday 04/07/23 and 03-30-23. Done. Jimena PATTERSON documented in this encounter [facility] 04-12-2023 Note [facility] 04-12-2023 History of Presen t illness Narrative [...] her dog in the garage. Went to [facility] on April 09, had x-ray of [...] orthopedics. She would like to go to [facility] where her mother is going. Past medical history, appointments, medications, allergies reviewed. EXAM: BP 126/82 Pulse 76 Resp 16 Wt 122.9 kg (271 lb) LMP 03/27/2023 BMI 44.41 kg/m General Appearance: Well appearing, alert, in no acute distress, well-hydrated, well nourished.. Musculoskeletal: Left hand: She is able to freely move her fingers without difficulty. Her die tester strength in the left hand is noticeably [...] orthopedics. She would like to go to [facility]. She will make appointment. - CONSULT TO ORTHOPAEDICS Al Huerta APRN.CNP This note was partly generated using [employer] voice recognition dictation and may contain some misspelled or inaccurate words missed on review. documented in this encounter [facility] 04-09-2023 Miscellaneous Notes Pt notified of results via [employer]. Mary Spaulding Ma Can you please call the patient and let her know that I reviewed her x-ray results. X-rays of both the hand and shoulder were all normal. No fractures, dislocations, or any other abnormalities were noted. She may continue supportive care at home. Please let me know if she has any questions. Thank you. Mamta Saez APRN.CNP documented in this encounter [facility] 04-07-2023 Note [facility] 04-07-2023 Note [facility] 04-07-2023 Instructions Mamta Saez APRN.COOPER - 04/07/2023 11:42 AM EDT Get xray completed today Continue with supportive care at home Ice, elevate, wear brace that was provided. Follow up pending test results. documented in this encounter [facility] 04-07-2023 History of Presen t [...] mask as well as instruct patient on inspector machined parts. lidocaine (LIDOCAINE PAIN RELIEF) 4 % patch [...] discussed and patient voices understanding. Mamta Saez APRN.FLUID DYNAMICIST This note was partially generated using [employer] voice recognition system. Note was reviewed for accuracy. There may be minor misspellings or grammar miscues with [employer] voice recognition. documented in this encounter [facility] 04-06-2023 Note [facility] 04-06-2023 History of Presen t illness Narrative [...] mask as well as instruct patient on inspector machined parts.^Disp: 1 Device^Rfl: 99 lidocaine (LIDOCAINE PAIN RELIEF) [...] not in acute distress. Appearance: Normal appearance. Aied Lopez is obese. Aide Lopez is not [...] Discussed expected course of illness Silvia Mireles APRN.COOPER documented in this encounter [facility] 04-06-2023 Instructions Silvia Mireles APRN.CNP - [...] Discussed expected course of illness Silvia Mireles APRN.FLUID DYNAMICIST R.I.C.E. The general care of your injury [...] when lying down. documented in this encounter [facility] 04-06-2023 Note [facility] 04-06-2023 Miscellaneous Notes Patient present to office today for other appointment in different dept. Patient states dog ate speed pro brace. This nurse provided size Large brace to patient and notified rep. Of situation. Sruthi Lopez LPN documented in this encounter [facility] 04-06-2023 History of Presen t [...] Marlon Dasilva PT documented in this encounter [facility] 04-02-2023 Miscellaneous Notes Pt viewed message with no further response.Anabella Andrade LPN ' Message sent to pt, when she was seen in the office on 12/17/22 refills were given. Will await further response from pt.Anabella Andrade LPN documented in this encounter [facility] 04-02-2023 Miscellaneous Notes OK to [...] Labs-10/23/22 NOV-none Please review and advise. Anna Gatse LPN documented in this encounter [facility] 04-01-2023 Note [facility] 03-31-2023 Note [facility] 03-31-2023 Note [facility] 03-31-2023 History of Presen t illness Narrative [...] 11/20/2008 Menarche 07/09 MENTAL RETARDATION NOS 11/20/2008 ROSLEINE (obstructive sleep apnea) 02/20/2010 Shoulder pain 05/09/2014 [...] mask as well as instruct patient on inspector machined parts.^Disp: 1 Device^Rfl: 99 lidocaine (LIDOCAINE PAIN RELIEF) [...] seen. Dictated by : MD Ernesto AMAYA APRN.FLUID DYNAMICIST documented in this encounter [facility] 03-29-2023 Hospital Discharg e instructions [...] alternate ice and heat. You may use iwmk-osd-frrarpn pain medicine to control pain, unless another [...] numb, or tingly Pain or swelling increases [id number] The [employer]. [address] [place] [address]. All rights reserved. This information is not intended as a substitute for professional medical care. Always follow your healthcare professional's instructions. Follow Up Care 03/28/2023 22:10:33 With:IKER TRUJILLO MD Address: [address] [place] [address]- When:2-4 days [facility] 03-28-2023 Note Discharge Instructions Thank you for allowing [facility] to assist you with your healthcare needs. The following is important discharge information regarding your hospital visit. What to Do Next Instructions from Your Care Team No qualifying data available. Post Acute Orders No qualifying data available. You Need to Schedule the Following Appointments Follow Up with IKER TRUJILLO MD When Within 2-4 days Where: [address] [place] [id number]- Allergies Augmentin (Ibuprofen) erythromycin ibuprofen Medications Please [...] alternate ice and heat. You may use fcvd-hqs-dekgexz pain medicine to control pain, unless another [...] numb, or tingly Pain or swelling increases [phone] The [employer]. [address] [place] [address], [place] [address]. All rights reserved. This information is not intended as a substitute for professional medical care. Always follow your healthcare professional's instructions. Additional Information VACCINATE! IT SAVES LIVES! Members of the community who have not yet received the COVID-19 vaccine and would like to receive it can visit one of [facility] vaccine clinics. There are many vaccine clinic locations within the [facility]. For locations and available times, please visit www.[email or web address].[email or web address] gov/. It is important to note that some COVID mobile vaccine clinics are held outdoors and may be canceled in rainy or stormy conditions. To learn more about pediatric vaccinations (ages 5-11), we invite you to visit the [facility] webpage. https://www.[facility]s.org/p ages/6726-Dcjhy-Roiqljsqajl-Freq gaafvo-Ltjpf-Kpjlwcaqx.html To learn more about the COVID-19 vaccine, we invite you to visit the CDC website for a list of frequently asked questions. https://www.cdc.gov/coronavirus/ 2019-ncov/vaccines/faq.html [facility] Patient Portal Access Instructions: Stay connected with your healthcare team and access your personal medical information anytime with the [facility] Patient Portal. If you would like a full copy of your medical records please contact the [facility] Medical Records Department Wednesday through Wednesday between 8a.m. and 4:30p.m. Please follow the directions below to access the portal: 1.Access the email account you provided upon registration to the hospital.2.Look for an invitation email from [facility].3.Open the email and access the invitation link: Accept Invitation to [facility]4.Fill in the required harrington to create your account. Sign into [email or web address] with your username and password that you [...] you will allow to register on the [employer] Patient Portal for access to your information. You can also access the [employer] Patient Portal on the [employer] adrianna. Simply click on Health Records under Health Data and then click on the [facility] logo. HOW TO SAFELY DISPOSE OF PRESCRIPTION [...] Call your local pharmacy or go to http://Davia.SolveBoard/4I5Hj9h to find one close to you.3.Make use of household items: Use cat litter or old coffee grounds to dispose medications if other options are not available. Mix your drugs with these household products, seal them in an airtight container and throw it into the garbage. Call [facility]: [phone] to be sure your drugs can be [...] been reviewed and explained to me and IJOHN HALEY M understand my current condition and have read and understand these discharge instructions. I have received a written copy of the plan/instructions. If I have questions, I am aware that I should contact my doctor. Patient/Endless Steamer Tender Signature: Date/Time: Relationship to Patient: Witness Name/Signature: Date/Time: [facility] 03-28-2023 Emergency department Discharge summary Discharge Instructions Thank you for allowing [facility] to assist you with your healthcare needs. [...] MD When Within 2-4 days Where: [address] [place] [address]- Allergies Augmentin (Ibuprofen) erythromycin ibuprofen Medications Please [...] alternate ice and heat. You may use vbxd-ncr-xruagzg pain medicine to control pain, unless another [...] numb, or tingly Pain or swelling increases 2282-4306 The [employer]. [address] [place] [address], [place] [address]. All rights reserved. This information is not intended as a substitute for professional medical care. Always follow your healthcare professional's instructions. Additional Information VACCINATE! IT SAVES LIVES! Members of the community who have not yet received the COVID-19 vaccine and would like to receive it can visit one of [facility] vaccine clinics. There are many vaccine clinic locations within the [facility]. For locations and available times, please visit www.[email or web address] gov/. It is important to note that some COVID mobile vaccine clinics are held outdoors and may be canceled in rainy or stormy conditions. To learn more about pediatric vaccinations (ages 5-11), we invite you to visit the [facility] webpage. https://www.[facility].org/p ages/9563-Khywh-Nwfgkmsnimu-Freq udqimm-Dwllr-Dohhytpug.html To learn more about the COVID-19 vaccine, we invite you to visit the CDC website for a list of frequently asked questions. https://www.cdc.gov/coronavirus/ 2019-ncov/vaccines/faq.html [facility] Patient Portal Access Instructions: Stay connected with your healthcare team and access your personal medical information anytime with the [facility] Patient Portal. If you would like a full copy of your medical records please contact the [facility] Medical Records Department Wednesday through Wednesday between 8a.m. and 4:30p.m. Please follow the directions below to access the portal: 1.Access the email account you provided upon registration to the hospital.2.Look for an invitation email from [facility].3.Open the email and access the invitation link: Accept Invitation to [facility]4.Fill in the required harrington to create your account. Sign into [email or web address] with your username and password that you [...] you will allow to register on the [facility] Patient Portal for access to your information. You can also access the [facility] Patient Portal on the [employer]. Simply click on Health Records under Health Data and then click on the [facility] logo. HOW TO SAFELY DISPOSE OF PRESCRIPTION [...] Call your local pharmacy or go to http://Davia.SolveBoard/5J8Im0y to find one close to you.3.Make use of household items: Use cat litter or old coffee grounds to dispose medications if other options are not available. Mix your drugs with these household products, seal them in an airtight container and throw it into the garbage. Call [facility]: [phone] to be sure your drugs can be [...] been reviewed and explained to me and JOHN Gabriel HALEY M understand my current condition and have read and understand these discharge instructions. I have received a written copy of the plan/instructions. If I have questions, I am aware that I should contact my doctor. Patient/Endless Steamer Tender Signature: Date/Time: Relationship to Patient: Witness Name/Signature: Date/Time: [facility] 03-22-2023 Note [facility] 03-22-2023 Note [facility] 03-22-2023 Note [facility] 03-22-2023 Note [facility] 03-22-2023 Note [facility] 03-22-2023 History of Presen t illness Narrative [...] report being able to walk without pain [place] in home exercise program. Perform stair negotiation without pain. Increased strength of L ankle to 4+/5 or greater for return to PLOF Patient Goals: Improve pain Planned Interventions, Frequency, and Duration: Current Frequency: 1x/week Duration: 4 weeks Total Number of Visits Planned: 4 Planned Treatment Interventions: Therapeutic exercise (86135), Neuromuscular re-education (65778), Manual therapy (86482), Self-group home management (32523), Gait Training (14857), Patient/Family/Caregiver Education PLAN FOR NEXT VISIT: Assess [...] awhile now. Getting a nerve test at [facility]. Pain with stair negotiation and walking [...] Marlon Dasilva PT documented in this encounter [facility] 03-22-2023 History of Presen t [...] 2023 3:18 PM documented in this encounter [facility] 03-22-2023 History of Presen t [...] 5.6 4.3 - 5.6 % Final Comment: [place] [employer] guidelines indicate that patients with [...] mask as well as instruct patient on inspector machined parts. Cholecalciferol, Vitamin D3, (VITAMIN D-3) 1,000 unit [...] Sruthi Lopez LPN documented in this encounter [facility] 03-22-2023 Instructions Sruthi Lilly - 03/22/2023 2:25 PM EDT Ankle sprain: appears to be improving. Ok to transition out of boot into ankle brace at 1 hour/day and increase as tolerable. Wear brace until ankle feels strong without pain. Continue with therapy for ankle as needed Wear boot on right foot until xrays reviewed documented in this encounter [facility] 02-04-2023 Note [facility] 02-04-2023 Note [facility] 02-04-2023 Instructions Sruthi Lilly - 02/04/2023 10:51 AM EDT Continue with boot until pain subsides Can continue with ice bath x 10 minutes two to three times daily If pain improves, consider transition to ankle brace Would recommend trying therapy If pain fails to improve, consider mri documented in this encounter [facility] 02-04-2023 History of Presen t [...] 5.6 4.3 - 5.6 % Final Comment: [place] [employer] guidelines indicate that patients with [...] mask as well as instruct patient on inspector machined parts. lidocaine (LIDODERM) 5 % Apply 1 Patch [...] ice) Comments: ankle documented in this encounter [facility] 02-03-2023 Miscellaneous Notes Pt calling [...] instructed. Jimena Sahni documented in this encounter [facility] 02-01-2023 Note [facility] 02-01-2023 Note [facility] 02-01-2023 Note [facility] 02-01-2023 History of Presen t illness Narrative [...] 2023 12:45 PM documented in this encounter [facility] 02-01-2023 Instructions Sruthi Lilly - 02/01/2023 11:45 AM EDT Discussed ankle brace vs boot. Patient elected for boot Recommend 81 mg aspirin twice daily when using boot Pending xrays, may consider brace and physical therapy documented in this encounter [facility] 02-01-2023 History of Presen t [...] mask as well as instruct patient on inspector machined parts. Cholecalciferol, Vitamin D3, (VITAMIN D-3) 1,000 unit [...] today. Sruthi Lilly DPM Podiatry [address] [facility] [address] Dept: [phone] Dept AMB ROOMING INTAKE FLOWSHEET DATA Pain Pain Level: 10 Pain Location: Ankle-Left Description: Throbbing, Radiating Duration Amount of Time: 3 Duration Units: Weeks Frequency: Intermittent Intervention/Comfort measure: Medication, Relaxation, Reposition, Cold, Heat Patient presents with: Left Ankle - Established Patient, Pain, Swelling Sruthi Lopez LPN documented in this encounter [facility] 01-21-2023 History of Presen t illness Narrative Images from the original note were not included. [facility] [address] [facility] [address] [facility] [address] Dept: [phone] Dept Chief Complaint Patient presents with Follow-up [...] prior to signing but minor errors in paragliding instructor may have occurred. documented in this encounter [facility] 01-21-2023 Miscellaneous Notes TC to pt. [...] possible causes of her symptoms. Mamta Saez APRN.FLUID DYNAMICIST Pt calling states seen Mamta for lft ankle she said she wants a referral sent to [facility] . documented in this encounter [facility] 01-15-2023 Hospital Discharg e instructions [...] and redness. Use these as directed. Otherwise, acka-xhb-udoyyig decongestant eye drops may be used. Apply [...] Increasing redness around the eye Facial swelling [id number] The [employer]. [address] [place] [address]. All rights reserved. This information is not intended as a substitute for professional medical care. Always follow your healthcare professional's instructions. Follow Up [facility] 01/15/2023 01:53:36 With:Your eye doctor Address:Unknown When:5-7 days Comments:Schedule appointment for follow-up if your symptoms persist.Continue eyedrops as previously prescribed by your eye doctor.Use oral antihistamine (Claritin) as prescribed.Return to the ED if symptoms worsen. [facility] 01-15-2023 Note Discharge Instructions Thank you for allowing [facility] to assist you with your healthcare needs. [...] and redness. Use these as directed. Otherwise, ejnx-jvi-zbmyuto decongestant eye drops may be used. Apply [...] Increasing redness around the eye Facial swelling [id number] The [employer]. [address] [place] [address], [place] [address]. All rights reserved. This information is not intended as a substitute for professional medical care. Always follow your healthcare professional's instructions. Additional Information VACCINATE! IT SAVES LIVES! Members of the community who have not yet received the COVID-19 vaccine and would like to receive it can visit one of [facility] vaccine clinics. There are many vaccine clinic locations within the [facility]. For locations and available times, please visit [email or web address] It is important to note that some COVID mobile vaccine clinics are held outdoors and may be canceled in rainy or stormy conditions. To learn more about pediatric vaccinations (ages 5-11), we invite you to visit the [employer] webpage. https://www.Manyetas.org/p ages/4337-Umnue-Zycvfxtdjkr-Freq mkzfxm-Lhtpp-Ovkjjbumq.html To learn more about the COVID-19 vaccine, we invite you to visit the CDC website for a list of frequently asked questions. https://www.cdc.gov/coronavirus/ 2019-ncov/vaccines/faq.html [facility] Patient Portal Access Instructions: Stay connected with your healthcare team and access your personal medical information anytime with the [facility] Patient Portal. If you would like a full copy of your medical records please contact the [facility] Medical Records Department Wednesday through Wednesday between 8a.m. and 4:30p.m. Please follow the directions below to access the portal: 1.Access the email account you provided upon registration to the hospital.2.Look for an invitation email from [facility].3.Open the email and access the invitation link: Accept Invitation to [facility]4.Fill in the required harrington to create your account. Sign into [email or web address] with your username and password that you [...] you will allow to register on the [facility] Patient Portal for access to your information. You can also access the [facility] Patient Portal on the [employer] adrianna. Simply click on Health Records under [employer] Data and then click on the [facility] logo. HOW TO SAFELY DISPOSE OF PRESCRIPTION [...] Call your local pharmacy or go to http://[email or web address] to find one close to you.3.Make use of household items: Use cat litter or old coffee grounds to dispose medications if other options are not available. Mix your drugs with these household products, seal them in an airtight container and throw it into the garbage. Call [facility]: [phone] to be sure your drugs can be [...] aware that I should contact my doctor. Patient/Endless Steamer Tender Signature: Date/Time: Relationship to Patient: Witness Name/Signature: Date/Time: [facility] 01-13-2023 History of Presen t illness Narrative Images from the original note were not included. [facility] [address] [facility] [address] [facility] [address] Dept: [phone] Dept Chief Complaint Patient presents with Ankle [...] prior to signing but minor errors in paragliding instructor may have occurred. documented in this encounter [facility] 01-13-2023 Instructions Ericka Larkin MD - 01/13/2023 11:15 AM EDT Take 10,000 units daily for 6 weeks Use the cane and an latricia wrap as needed for comfort. The following attachments cannot be sent through Care Everywhere.Contusion Discharge Instructions (Dominican)documented in this encounter [facility] 12-30-2022 Note [facility] 12-30-2022 Note [facility] 12-17-2022 Note [facility] 12-15-2022 Emergency department Discharge summary Discharge Instructions Thank you for allowing [facility] to assist you with your healthcare needs. [...] MD When Within 2-4 days Where: [address] [place] [address]- Allergies Augmentin (Ibuprofen) erythromycin ibuprofen Medications Please [...] you feel better and your symptoms ease. 8982-5151 The [employer]. [address] [place] [address]. All rights reserved. This information is not intended as a substitute for professional medical care. Always follow your healthcare professional's instructions. Additional Information VACCINATE! IT SAVES LIVES! Members of the community who have not yet received the COVID-19 vaccine and would like to receive it can visit one of [facility] vaccine clinics. There are many vaccine clinic locations within the [facility]. For locations and available times, please visit [email or web address] It is important to note that some COVID mobile vaccine clinics are held outdoors and may be canceled in rainy or stormy conditions. To learn more about pediatric vaccinations (ages 5-11), we invite you to visit the [facility] webpage. https://www.[facility].org/p ages/6225-Ckold-Uebqyouujlj-Freq yvnhvj-Uxbyl-Fkjkrgiia.html To learn more about the COVID-19 vaccine, we invite you to visit the CDC website for a list of frequently asked questions. https://www.cdc.gov/coronavirus/ 2019-ncov/vaccines/faq.html [facility] Patient Portal Access Instructions: Stay connected with your healthcare team and access your personal medical information anytime with the [facility] Patient Portal. If you would like a full copy of your medical records please contact the [facility] Medical Records Department Wednesday through Wednesday between 8a.m. and 4:30p.m. Please follow the directions below to access the portal: 1.Access the email account you provided upon registration to the hospital.2.Look for an invitation email from [facility].3.Open the email and access the invitation link: Accept Invitation to [facility]4.Fill in the required harrington to create your account. Sign into [email or web address] with your username and password that you [...] you will allow to register on the [facility] Patient Portal for access to your information. You can also access the [employer] Patient Portal on the [employer] adrianna. Simply click on Health Records under Health Data and then click on the [facility] logo. HOW TO SAFELY DISPOSE OF PRESCRIPTION [...] Call your local pharmacy or go to http://bit.SolveBoard/1A8Yx6j to find one close to you.3.Make use of household items: Use cat litter or old coffee grounds to dispose medications if other options are not available. Mix your drugs with these household products, seal them in an airtight container and throw it into the garbage. Call [facility]: [phone] to be sure your drugs can be [...] been reviewed and explained to me and JOHN Gabriel HALEY M understand my current condition and have read and understand these discharge instructions. I have received a written copy of the plan/instructions. If I have questions, I am aware that I should contact my doctor. Patient/Endless Steamer Tender Signature: Date/Time: Relationship to Patient: Witness Name/Signature: Date/Time: [facility] 12-15-2022 Hospital Discharg e instructions Patient Education [...] you feel better and your symptoms ease. [id number] The [employer]. [address] [place] [address], [place] [address]. All rights reserved. This information is not intended as a substitute for professional medical care. Always follow your healthcare professional's instructions. [facility] 12/15/2022 19:18:41 With:Go to emergency room if symptoms worsen Address:Unknown When:2-4 days With:IKER TRUJILLO MD Address: [address] [facility] [place] [address]- When:2-4 days [facility] 12-15-2022 Hospital Discharg e instructions Patient Education [...] worsens and is not improved with elevation. [phone] The [employer]. [address] [place] [address], [place] [address]. All rights reserved. This information is not intended as a substitute for professional medical care. Always follow your healthcare professional's instructions. [facility] 12/15/2022 10:02:31 With:Follow up with primary care provider Address:Unknown When:2-4 days [facility]usu 12-15-2022 Note Discharge Instructions Thank you for allowing [facility] to assist you with your healthcare needs. [...] worsens and is not improved with elevation. [phone] The [employer]. [address] [place] [address]. All rights reserved. This information is not intended as a substitute for professional medical care. Always follow your healthcare professional's instructions. Additional Information VACCINATE! IT SAVES LIVES! Members of the community who have not yet received the COVID-19 vaccine and would like to receive it can visit one of [facility] vaccine clinics. There are many vaccine clinic locations within the [facility]. For locations and available times, please visit [email or web address] [email or web address] It is important to note that some COVID mobile vaccine clinics are held outdoors and may be canceled in rainy or stormy conditions. To learn more about pediatric vaccinations (ages 5-11), we invite you to visit the [facility] webpage. https://www.[facility].org/p ages/6478-Cphlb-Utojmgmhbbx-Freq yruibz-Vipgc-Ulxbhupkf.html To learn more about the COVID-19 vaccine, we invite you to visit the CDC website for a list of frequently asked questions. https://www.cdc.gov/coronavirus/ 2019-ncov/vaccines/faq.html [employer] Patient Portal Access Instructions: Stay connected with your healthcare team and access your personal medical information anytime with the [employer] Patient Portal. If you would like a full copy of your medical records please contact the [facility] Medical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 referral (narrative)* Diagnostic Procedure Only (Routine) - Pending Review Specialty Diagnoses / Procedures Referred By Contac t Referred To Contact XR IMAGING Diagnoses Acute pain of right knee Procedures XR KNEE GENERAL 4V AP BOTH/PA BOTH/LAT/MERC RIGHT RADIOLOGIC EXAM KNEE COMPLETE 4/MORE VIEWS Sruthi Eaton PA-C [address] [place] [address] [place] [address] Referral ID Status Reason Start Date Expiration Date Visits Requested Visits Authorized [id number] Pending Review Auto-Generat ed Referral 08/14/2024 1 1 [facility] for referral (narrative)* Diagnostic Procedure Only (Routine) - Closed Specialty Diagnoses / Procedures Referred By Contac t Referred To Contact XR IMAGING Diagnoses Sprain of left ankle, unspecified ligament, initial encounter Procedures XR ANKLE GENERAL 3V AP/LAT/OBL LEFT RADEX ANKLE COMPLETE MINIMUM 3 VIEWS Sruthi Lilly [address] [place] [address] [place] [address] Referral ID Status Reason Start Date Expiration Date V isits Requested Visits Authorized [id number] Closed Auto-Generate d Referral 02/01/2023 03/02/2024 1 1 [facility] for referral (narrative)* Diagnostic Procedure Only (Routine) - Closed Specialty Diagnoses / Procedures Referred By Contac t Referred To Contact XR IMAGING Diagnoses Right knee pain, unspecified chronicity Procedures XR TIBIA FIBULA 2V AP/LAT RIGHT RADIOLOGIC EXAMINATION TIBIA & FIBULA 2 VIEWS Veronica Jiang DO [address] [place] [address] [place] [address] Referral ID Status Reason Start Date Expiration Date V isits Requested Visits Authorized [id number] Closed Auto-Generate d Referral 11/04/2022 12/04/2023 [address] [facility] for referral (narrative)* Diagnostic Procedure Only (Routine) - Closed Specialty Diagnoses / Procedures Referred By Contac t Referred To Contact XR IMAGING Diagnoses Contusion of right great toe without damage to nail, initial encounter Procedures XR FOOT GENERAL 3V AP/LAT/OBL RIGHT RADEX FOOT COMPLETE MINIMUM 3 VIEWS Sruthi Lilly [address] [place] [address] [place] [address] Referral ID Status Reason Start Date Expiration Date V isits Requested Visits Authorized [id number] Closed Auto-Generate d Referral 03/22/2023 04/20/2024 1 1 [facility] for referral (narrative)* Diagnostic Procedure Only (Urgent) - Pending Review Specialty Diagnoses / Procedures Referred By Contac t Referred To Contact XR IMAGING Diagnoses Injury of left wrist, initial encounter Procedures XR WRIST GENERAL 3V PA/LAT/OBL LEFT RADEX WRIST COMPLETE MINIMUM 3 VIEWS Ernesto Mckinney APRN.FLUID DYNAMICIST [address] [place] [address] [place] [address] Referral ID Status Reason Start Date Expiration Date Visits Requested Visits Authorized [id number] Pending Review Auto-Generat ed Referral 09/11/2024 1 1 [facility] for referral (narrative)* Outpatient Procedure (Routine) - Pending Review Specialty Diagnoses / Procedures Referred By Contac t Referred To Contact [facility] Diagnoses Seizure-like activity (HCC) Migraine with aura and without status migrainosus, not intractable Procedures EPIL EEG ROUTINE ELECTROENCEPHALOGRAM REC COMA/SLEEP ONLY Marixa Tinoco APRN.FLUID DYNAMICIST [address] [place] [id number] [facility] [place] [address] [place] [phone] Referral ID Status Reason Start Date Expiration Date Visits Requested Visits Authorized [id number] Pending Review Auto-Generat ed Referral 11/12/2023 11/12/2024 1 1 * MRI/CT (Routine) - Pending Review Specialty Diagnoses / Procedures Referred By Contac t Referred To Contact MR IMAGING Diagnoses Seizure-like activity (HCC) Migraine with aura and without status migrainosus, not intractable Procedures MRI BRAIN WO/W IVCON MRI BRAIN BRAIN STEM W/O W/CONTRAST MATERIAL Marixa Tinoco APRN.FLUID DYNAMICIST [address] [place] [address] Mr Imaging [facility] Referral ID Status Reason Start Date Expiration Date Visits Requested Visits Authorized [id number] Pending Review Auto-Generat ed Referral 11/12/2023 12/11/2024 1 1 [facility] for referral (narrative)* Diagnostic Procedure Only (Urgent) - Closed Specialty Diagnoses / Procedures Referred By Contac t Referred To Contact XR IMAGING Diagnoses Pain of left hand Procedures XR HAND GENERAL 3V PA/LAT/OBL LEFT RADEX HAND MINIMUM 3 VIEWS Golver, Michelle, FLUID DYNAMICIST [address] [place] [address] [place] [address] Referral ID Status Reason Start Date Expiration Date V isits Requested Visits Authorized [id number] Closed Auto-Generate d Referral 11/24/2023 12/23/2024 1 1 [facility] for visit Narrative* Diagnostic Procedure Only (Routine) - Closed Specialty Diagnoses / Procedures Referred By Contac t Referred To Contact XR IMAGING Diagnoses Sprain of left ankle, unspecified ligament, initial encounter Procedures XR ANKLE GENERAL 3V AP/LAT/OBL LEFT RADEX ANKLE COMPLETE MINIMUM 3 VIEWS Sruthi Lilly [address] [place] [address] [place] [address] Referral ID Status Reason Start Date Expiration Date V isits Requested Visits Authorized [id number] Closed Auto-Generate d Referral 02/01/2023 03/02/2024 1 1 [facility] for visit Narrative* Diagnostic Procedure Only (Routine) - Closed Specialty Diagnoses / Procedures Referred By Contac t Referred To Contact XR IMAGING Diagnoses Right knee pain, unspecified chronicity Procedures XR TIBIA FIBULA 2V AP/LAT RIGHT RADIOLOGIC EXAMINATION TIBIA & FIBULA 2 VIEWS Veronica Jiang, DO [address] [place] [address] [place] [address] Referral ID Status Reason Start Date Expiration Date V isits Requested Visits Authorized [id number] Closed Auto-Generate d Referral 11/04/2022 12/04/2023 1 1 [facility] for visit Narrative* Diagnostic Procedure Only (Routine) - Closed Specialty Diagnoses / Procedures Referred By Contac t Referred To Contact XR IMAGING Diagnoses Contusion of right great toe without damage to nail, initial encounter Procedures XR FOOT GENERAL 3V AP/LAT/OBL RIGHT RADEX FOOT COMPLETE MINIMUM 3 VIEWS Sruthi Lilly [address] [place] [address] [place] [address] Referral ID Status Reason Start Date Expiration Date V isits Requested Visits Authorized [id number] Closed Auto-Generate d Referral 03/22/2023 04/20/2024 1 1 [facility] Discharge Instructions * Attachments The following attachments cannot be sent through Care Everywhere. * Leg Pain (Dominican) documented in this encounter Assessments Diagnosis Right [...] EXTREM W/O CONTRAST Veronica Villanueva DO [address] [place] [address] [place] [address] Referral ID Status Reason Start Date Expiration Date V isits Requested Visits Authorized [id number] Denied Auto-Generate d Referral 09/03/2023 10/07/2023 1 0 Specialty Diagnoses / Procedures Referred By Contac t Referred To Contact Diagnoses Class 3 severe obesity due to excess calories without serious comorbidity with body mass index (BMI) of 40.0 to 44.9 in adult (HCC) Procedures ENDOCRINOLOGY DIETITIAN VISIT (MNT) MEDICAL NUTRITION ASSMT&IVNTJ INDIV EACH 15 [place] MEDICAL NUTRITION ASSMT&IVNTJ INDIV EACH 15 [place] MEDICAL NUTRITION ASSMT&IVNTJ INDIV EACH 15 [place] MEDICAL NUTRITION ASSMT&IVNTJ INDIV EACH 15 [place] Farrukh Maxwell MD [address] [place] [address] Referral ID Status Reason Start Date Expiration Date Visits Requested Visits Authorized [id number] Authorized PCP Requested Referral 08/30/2023 08/29/2024 1 1 Specialty Diagnoses / Procedures Referred By Contac t Referred To Contact [facility] Diagnoses SOB (shortness of breath) Procedures SPIROMETRY - BASELINE AND POST DILATOR BRNCDILAT RSPSE SPMTRY PRE&POST-BRNCDILAT ADMFarrukh Rose MD [address] [place] [address] [facility] [place] [address] [place], [place] [id number] Referral ID Status Reason Start Date Expiration Date Visits Requested Visits Authorized [id number] Authorized Auto-Generat ed Referral 08/30/2023 09/28/2024 1 1 Specialty Diagnoses / Procedures Referred By Contact Referred To Contact [facility] Diagnoses Chronic pain of right knee Procedures CONSULT TO PHYSICAL THERAPY PHYSICAL THERAPY EVALUATION HIGH COMPLEX 45 MINS Linda Recinos MD [address] [place] [id number] [facility] [address] [address] Referral ID Status Reason Start Date Expiration Date Visits Requested Visits Authorized [id number] Pending Review Auto-Generat ed Referral 3 07/15/2024 1 1 Specialty Diagnoses / Procedures Referred By Contac t Referred To Contact XR IMAGING Diagnoses Chronic pain of right knee Procedures XR HIP GENERAL 3V PELV/AP/LAT RIGHT RADEX HIP UNILATERAL WITH PELVIS 2-3 VIEWS Linda Recinos MD [address] [place] [address] [place] [address] Referral ID Status Reason Start Date Expiration Date V isits Requested Visits Authorized [id number] Closed Auto-Generate d Referral 07/16/2023 08/14/2024 1 1 Specialty Diagnoses / Procedures Referred By Contac t Referred To Contact [facility] Diagnoses Strain of right Achilles tendon, sequela Procedures PT REHAB FOLLOW UP ORDER THERAPEUTIC EXERCISES RE, EA 15 MIN. Marlon Dasilva, PT [address] [place] [address] [facility] [address] [address] Referral ID Status Reason Start Date Expiration Date Visits Requested Visits Authorized [id number] Pending Review PCP Requested Referral Auto-Generate d Referral 05/20/2023 08/18/2023 1 1 Specialty Diagnoses / Procedures Referred By Contac t Referred To Contact Orthopedics Diagnoses Hand pain, left Procedures CONSULT TO ORTHOPAEDICS OFFICE/OUTPATIENT [facility] MDM 60-74 MINUTES Al Huerta APRN.FLUID DYNAMICIST [address] [place] [address] Referral ID Status Reason Start Date Expiration Date Visits Requested Visits Authorized [id number] Authorized PCP Requested Referral 04/12/2023 04/11/2024 1 1 Specialty Diagnoses / Procedures Referred By Contac t Referred To Contact [facility] Diagnoses Sprain of left ankle, unspecified ligament, initial encounter Peroneal tendinitis of left lower extremity Procedures CONSULT TO PHYSICAL THERAPY PHYSICAL THERAPY EVALUATION HIGH COMPLEX 45 MINS Sruthi Lilly [address] [place] [address] [facility] [place] [address] [place] [address] Referral ID Status Reason Start Date Expiration Date Visits Requested Visits Authorized [id number] Authorized Auto-Generat ed Referral 09/27/2022 09/26/2023 1 [...] HIGH COMPLEX 45 MINS Linda Recinos MD [address] [place] [address] [facility] [place] [id number] Referral ID Status Reason Start Date Expiration Date V isits Requested Visits Authorized [id number] Closed Auto-Generate d Referral 09/27/2022 09/26/2023 1 [...] Referred By Suma day Referred To Contact PHYSICAL THERAPY Diagnoses Sprain of left ankle, unspecified ligament, initial encounter Peroneal tendinitis of left lower extremity Procedures CONSULT TO PHYSICAL THERAPY PHYSICAL THERAPY EVALUATION HIGH COMPLEX 45 MINS Sruthi Lilly [address] [place] [address] Pt [facility]ly [facility] [address] [place] [address] Referral ID Status Reason Start Date Expiration Date V isits Requested Visits Authorized [id number] Closed Auto-Generate d Referral 09/27/2022 09/26/2023 1 1 Reason Comments Appointment Reason Comments left ankle pain Hit left ankle in [facility] yesterday Reason Onset Date Comments Refill Request 04/01/2023 Reason Comments Physical Therapy Specialty Diagnoses / Procedures Referred By Suma day Referred To Contact [facility] Diagnoses Sprain of left ankle, unspecified ligament, initial encounter Peroneal tendinitis of left lower extremity Procedures PT REHAB FOLLOW UP ORDER THERAPEUTIC EXERCISES RE, EA 15 MIN. Sruthi Lilly [address] [place] [address] [facility] [address] [address] Referral ID Status Reason Start Date Expiration Date Visits Requested Visits Authorized [id number] Authorized PCP Requested Referral Auto-Generate d Referral [...] 15 MIN. Sruthi Lilly [address] [place] [address] [facility] [place] [address] [place] [address] Referral ID Status Reason Start Date Expiration Date V isits Requested Visits Authorized [id number] Closed PCP Requested Referral Auto-Generated Referral 03/26/2023 05/27/2023 4 4 Reason Comments Physical Reason Comments New Knee Pain Specialty Diagnoses / Procedures Referred By Contac t Referred To Contact Orthopedics Diagnoses Hand pain, left Procedures CONSULT TO ORTHOPAEDICS OFFICE/OUTPATIENT NEW HIGH MDM 60-74 MINUTES Al Huerta, SOLAR POWER INSTALLER.FLUID DYNAMICIST [address] [place] [address] Referral ID Status Reason Start Date Expiration Date V isits Requested Visits Authorized [id number] Closed PCP Requested Referral 04/12/2023 04/11/2024 1 1 Reason Comments ER F/U [facility] Reason Comments Consult Reason Comments right hand [...] PRE&POST-BRNCDILAT ADMN Farrukh Maxwell MD [address] [place] [address] [facility] [place] [address] [place] [address] Referral ID Status Reason Start Date Expiration Date V isits Requested Visits Authorized [id number] Closed Auto-Generate d Referral 08/30/2023 09/28/2024 1 1 Reason Comments Established Patient Knee Pain Reason Comments Blurred Vision Both Eyes Reason Comments Forms Reason Comments Follow Up Reason Comments Pain Left hip and buttock pain Reason Comments Release Of Medical Records Reason Comments Follow up Reason Comments Ear Pain right x 1 day Reason Comments Hand Injury left hand after fall last night Reason Onset Date Comments Question 11/29/2023 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 Reason Comments Knee Pain Follow Up Care Teams (unrecognized sec tion and content) Barn And Property Manager Relationship Specialty Start Date End Date Kavya Contreras [address] [place] [address] PCP - General 09/12/20 Barn And Property Manager Relationship Specialty Start Date End Date Kavya Contreras [address] [place] [address] PCP - General 09/12/20 Barn And Property Manager Relationship Specialty Start Date End Date Kavya Contreras [address] [place] [address] PCP - General 09/12/20 Barn And Property Manager Relationship Specialty Start Date End Date Iker Trujillo MD [address] [place] [address] PCP - General Family Medicine 01/31/21 Barn And Property Manager Relationship Specialty Start Date End Date Iker Trujillo MD [address] [place] [address] PCP - General Family Medicine 01/31/21 Barn And Property Manager Relationship Specialty Start Date End Date Iker Trujillo MD [address] [place] [address] PCP - General Family Medicine 01/31/21 Barn And Property Manager Relationship Specialty Start Date End Date Iker Trujillo MD [address] [place] [id number] PCP - General Family Medicine 01/31/21 Barn And Property Manager Relationship Specialty Start Date End Date Iker Trujillo MD [address] [place] [address] PCP - General Family Medicine 01/31/21 Barn And Property Manager Relationship Specialty Start Date End Date Iker Trujillo MD [address] [place] [address] PCP - General Family Medicine 01/31/21 Barn And Property Manager Relationship Specialty Start Date End Date Iker Trujillo MD [address] [place] [address] PCP - General Family Medicine 01/31/21 Barn And Property Manager Relationship Specialty Start Date End Date Iker Trujillo MD [address] [place] [address] PCP - General Family Medicine 01/31/21 Barn And Property Manager Relationship Specialty Start Date End Date Iker Trujillo MD [address] [place] [address] PCP - General Family Medicine 01/31/21 Barn And Property Manager Relationship Specialty Start Date End Date Iker Trujillo MD [address] [place] [address] PCP - General Family Medicine 01/31/21 Barn And Property Manager Relationship Specialty Start Date End Date Iker Trujillo MD [address] [place] [address] PCP - General Family Medicine 01/31/21 Barn And Property Manager Relationship Specialty Start Date End Date Iker Trujillo MD [address] [place] [address] PCP - General Family Medicine 01/31/21 Barn And Property Manager Relationship Specialty Start Date End Date Iker Trujillo MD [address] [facility] [place] [address] PCP - General Family Medicine 01/31/21 Barn And Property Manager Relationship Specialty Start Date End Date Iker Trujillo MD [address] [place] [address] PCP - General Family Medicine 01/31/21 Barn And Property Manager Relationship Specialty Start Date End Date Iker Trujillo MD [address] [place] [address] PCP - General Family Medicine 01/31/21 Barn And Property Manager Relationship Specialty Start Date End Date Iker Trujillo MD [address] [place] [address] PCP - General Family Medicine 01/31/21 Barn And Property Manager Relationship Specialty Start Date End Date Iker Trujillo MD [address] [place] [address] PCP - General Family Medicine 01/31/21 Barn And Property Manager Relationship Specialty Start Date End Date Iker Trujillo MD [address] [place] [address] PCP - General Family Medicine 01/31/21 Barn And Property Manager Relationship Specialty Start Date End Date Iker Trujillo MD [address] [place] [address] PCP - General Family Medicine 01/31/21 Barn And Property Manager Relationship Specialty Start Date End Date Iker Trujillo MD [address] [facility] [place] [address] PCP - General Family Medicine 01/31/21 Barn And Property Manager Relationship Specialty Start Date End Date Iker Trujillo MD [address] [facility] [place] [address] PCP - General Family Medicine 01/31/21 Barn And Property Manager Relationship Specialty Start Date End Date Iker Trujillo MD [address] [facility] [place] [address] PCP - General Family Medicine 01/31/21 Barn And Property Manager Relationship Specialty Start Date End Date Iker Trujillo MD [address] [facility] [place] [address] PCP - General Family Medicine 01/31/21 Barn And Property Manager Relationship Specialty Start Date End Date Iker Trujillo MD [address] [facility] [place] [address] PCP - General Family Medicine 01/31/21 Barn And Property Manager Relationship Specialty Start Date End Date Iker Trujillo MD [address] [facility] [place] [address] PCP - General Family Medicine 01/31/21 Barn And Property Manager Relationship Specialty Start Date End Date Iker Trujillo MD [address] [facility] [place] [address] PCP - General Family Medicine 01/31/21 Barn And Property Manager Relationship Specialty Start Date End Date Iker Trujillo MD [address] [facility] [place] [address] PCP - General Family Medicine 01/31/21 Barn And Property Manager Relationship Specialty Start Date End Date Iker Trujillo MD [address] [place] [address] PCP - General Family Medicine 01/31/21 Barn And Property Manager Relationship Specialty Start Date End Date Iker Trujillo MD [address] [place] [address] PCP - General Family Medicine 01/31/21 Barn And Property Manager Relationship Specialty Start Date End Date Iker Trujillo MD [address] [place] [address] PCP - General Family Medicine 01/31/21 Barn And Property Manager Relationship Specialty Start Date End Date Iker Trujillo MD [address] [place] [address] PCP - General Family Medicine 01/31/21 Barn And Property Manager Relationship Specialty Start Date End Date Iker Trujillo MD [address] [place] [address] PCP - General Family Medicine 01/31/21 Barn And Property Manager Relationship Specialty Start Date End Date Iker Trujillo MD [address] [place] [address] PCP - General Family Medicine 01/31/21 Barn And Property Manager Relationship Specialty Start Date End Date Iker Trujillo MD [address] [place] [address] PCP - General Family Medicine 01/31/21 Barn And Property Manager Relationship Specialty Start Date End Date Iker Trujillo MD [address] [place] [address] PCP - General Family Medicine 01/31/21 Barn And Property Manager Relationship Specialty Start Date End Date Iker Trujillo MD [address] [place] [address] PCP - General Family Medicine 01/31/21 INFORMATION SOURCE (unrecogn ized section and content) DATE CREATED AUTHOR AUTHOR'S ORGANIZ ATION 01/18/2023 [facility] DATE CREATED AUTHOR AUTHOR'S ORGANIZ ATION 08/07/2023 [facility] DATE CREATED AUTHOR AUTHOR'S ORGANIZ ATION 10/03/2023 [facility] DATE CREATED AUTHOR AUTHOR'S ORGANIZ ATION 10/17/2023 [facility] ([place]) DATE CREATED AUTHOR AUTHOR'S ORGANIZ ATION 12/03/2023 [facility] Source Comments (unrecognize d section and content) In the event this informatio n is protected by the Federal Confidentiality of Alcohol and Drug Abuse Patient Records regulations: The Federal rules restrict any use of the information to criminally investigate or prosecute any alcohol or drug abuse patient.[facility] the event this information is protected by the Federal Confidentiality of Alcohol and Drug Abuse Patient Records regulations: The Federal rules restrict any use of the information to criminally investigate or prosecute any alcohol or drug abuse patient.[facility] HospitalIn the event this information is protected by the Federal Confidentiality of Alcohol and Drug Abuse Patient Records regulations: The Federal rules restrict any use of the information to criminally investigate or prosecute any alcohol or drug abuse patient.[facility] HospitalIn the event this information is protected by the Federal Confidentiality of Alcohol and Drug Abuse Patient Records regulations: The Federal rules restrict any use of the information to criminally investigate or prosecute any alcohol or drug abuse patient.[facility] HospitalIn the event this information is protected by the Federal Confidentiality of Alcohol and Drug Abuse Patient Records regulations: The Federal rules restrict any use of the information to criminally investigate or prosecute any alcohol or drug abuse patient.[facility] HospitalIn the event this information is protected by the Federal Confidentiality of Alcohol and Drug Abuse Patient Records regulations: The Federal rules restrict any use of the information to criminally investigate or prosecute any alcohol or drug abuse patient.[facility] HospitalIn the event this information is protected by the Federal Confidentiality of Alcohol and Drug Abuse Patient Records regulations: The Federal rules restrict any use of the information to criminally investigate or prosecute any alcohol or drug abuse patient.[facility] HospitalIn the event this information is protected by the Federal Confidentiality of Alcohol and Drug Abuse Patient Records regulations: The Federal rules restrict any use of the information to criminally investigate or prosecute any alcohol or drug abuse patient.[facility] HospitalIn the event this information is protected by the Federal Confidentiality of Alcohol and Drug Abuse Patient Records regulations: The Federal rules restrict any use of the information to criminally investigate or prosecute any alcohol or drug abuse patient.[facility] HospitalIn the event this information is protected by the Federal Confidentiality of Alcohol and Drug Abuse Patient Records regulations: The Federal rules restrict any use of the information to criminally investigate or prosecute any alcohol or drug abuse patient.[facility] HospitalIn the event this information is protected by the Federal Confidentiality of Alcohol and Drug Abuse Patient Records regulations: The Federal rules restrict any use of the information to criminally investigate or prosecute any alcohol or drug abuse patient.[facility] HospitalIn the event this information is protected by the Federal Confidentiality of Alcohol and Drug Abuse Patient Records regulations: The Federal rules restrict any use of the information to criminally investigate or prosecute any alcohol or drug abuse patient.[facility] HospitalIn the event this information is protected by the Federal Confidentiality of Alcohol and Drug Abuse Patient Records regulations: The Federal rules restrict any use of the information to criminally investigate or prosecute any alcohol or drug abuse patient.[facility] HospitalIn the event this information is protected by the Federal Confidentiality of Alcohol and Drug Abuse Patient Records regulations: The Federal rules restrict any use of the information to criminally investigate or prosecute any alcohol or drug abuse patient.[facility] HospitalIn the event this information is protected by the Federal Confidentiality of Alcohol and Drug Abuse Patient Records regulations: The Federal rules restrict any use of the information to criminally investigate or prosecute any alcohol or drug abuse patient.[facility] HospitalIn the event this information is protected by the Federal Confidentiality of Alcohol and Drug Abuse Patient Records regulations: The Federal rules restrict any use of the information to criminally investigate or prosecute any alcohol or drug abuse patient.[facility] HospitalIn the event this information is protected by the Federal Confidentiality of Alcohol and Drug Abuse Patient Records regulations: The Federal rules restrict any use of the information to criminally investigate or prosecute any alcohol or drug abuse patient.[facility] HospitalIn the event this information is protected by the Federal Confidentiality of Alcohol and Drug Abuse Patient Records regulations: The Federal rules restrict any use of the information to criminally investigate or prosecute any alcohol or drug abuse patient.[facility] HospitalIn the event this information is protected by the Federal Confidentiality of Alcohol and Drug Abuse Patient Records regulations: The Federal rules restrict any use of the information to criminally investigate or prosecute any alcohol or drug abuse patient.[facility] HospitalIn the event this information is protected by the Federal Confidentiality of Alcohol and Drug Abuse Patient Records regulations: The Federal rules restrict any use of the information to criminally investigate or prosecute any alcohol or drug abuse patient.[facility] HospitalIn the event this information is protected by the Federal Confidentiality of Alcohol and Drug Abuse Patient Records regulations: The Federal rules restrict any use of the information to criminally investigate or prosecute any alcohol or drug abuse patient.[facility] HospitalIn the event this information is protected by the Federal Confidentiality of Alcohol and Drug Abuse Patient Records regulations: The Federal rules restrict any use of the information to criminally investigate or prosecute any alcohol or drug abuse patient.[facility] HospitalIn the event this information is protected by the Federal Confidentiality of Alcohol and Drug Abuse Patient Records regulations: The Federal rules restrict any use of the information to criminally investigate or prosecute any alcohol or drug abuse patient.[facility] HospitalIn the event this information is protected by the Federal Confidentiality of Alcohol and Drug Abuse Patient Records regulations: The Federal rules restrict any use of the information to criminally investigate or prosecute any alcohol or drug abuse patient.[facility] HospitalIn the event this information is protected by the Federal Confidentiality of Alcohol and Drug Abuse Patient Records regulations: The Federal rules restrict any use of the information to criminally investigate or prosecute any alcohol or drug abuse patient.[facility] HospitalIn the event this information is protected by the Federal Confidentiality of Alcohol and Drug Abuse Patient Records regulations: The Federal rules restrict any use of the information to criminally investigate or prosecute any alcohol or drug abuse patient.[facility] HospitalIn the event this information is protected by the Federal Confidentiality of Alcohol and Drug Abuse Patient Records regulations: The Federal rules restrict any use of the information to criminally investigate or prosecute any alcohol or drug abuse patient.[facility] HospitalIn the event this information is protected by the Federal Confidentiality of Alcohol and Drug Abuse Patient Records regulations: The Federal rules restrict any use of the information to criminally investigate or prosecute any alcohol or drug abuse patient.[facility] HospitalIn the event this information is protected by the Federal Confidentiality of Alcohol and Drug Abuse Patient Records regulations: The Federal rules restrict any use of the information to criminally investigate or prosecute any alcohol or drug abuse patient.[facility] HospitalIn the event this information is protected by the Federal Confidentiality of Alcohol and Drug Abuse Patient Records regulations: The Federal rules restrict any use of the information to criminally investigate or prosecute any alcohol or drug abuse patient.[facility] HospitalIn the event this information is protected by the Federal Confidentiality of Alcohol and Drug Abuse Patient Records regulations: The Federal rules restrict any use of the information to criminally investigate or prosecute any alcohol or drug abuse patient.[facility] HospitalIn the event this information is protected by the Federal Confidentiality of Alcohol and Drug Abuse Patient Records regulations: The Federal rules restrict any use of the information to criminally investigate or prosecute any alcohol or drug abuse patient.[facility] HospitalIn the event this information is protected by the Federal Confidentiality of Alcohol and Drug Abuse Patient Records regulations: The Federal rules restrict any use of the information to criminally investigate or prosecute any alcohol or drug abuse patient.[facility] HospitalIn the event this information is protected by the Federal Confidentiality of Alcohol and Drug Abuse Patient Records regulations: The Federal rules restrict any use of the information to criminally investigate or prosecute any alcohol or drug abuse patient.[facility] HospitalIn the event this information is protected by the Federal Confidentiality of Alcohol and Drug Abuse Patient Records regulations: The Federal rules restrict any use of the information to criminally investigate or prosecute any alcohol or drug abuse patient.[facility] HospitalIn the event this information is protected by the Federal Confidentiality of Alcohol and Drug Abuse Patient Records regulations: The Federal rules restrict any use of the information to criminally investigate or prosecute any alcohol or drug abuse patient.[facility] HospitalIn the event this information is protected by the Federal Confidentiality of Alcohol and Drug Abuse Patient Records regulations: The Federal rules restrict any use of the information to criminally investigate or prosecute any alcohol or drug abuse patient.[facility] HospitalIn the event this information is protected by the Federal Confidentiality of Alcohol and Drug Abuse Patient Records regulations: The Federal rules restrict any use of the information to criminally investigate or prosecute any alcohol or drug abuse patient.[facility] HospitalIn the event this information is protected by the Federal Confidentiality of Alcohol and Drug Abuse Patient Records regulations: The Federal rules restrict any use of the information to criminally investigate or prosecute any alcohol or drug abuse patient.[facility] HospitalIn the event this information is protected by the Federal Confidentiality of Alcohol and Drug Abuse Patient Records regulations: The Federal rules restrict any use of the information to criminally investigate or prosecute any alcohol or drug abuse patient.[facility] HospitalIn the event this information is protected by the Federal Confidentiality of Alcohol and Drug Abuse Patient Records regulations: The Federal rules restrict any use of the information to criminally investigate or prosecute any alcohol or drug abuse patient.[facility] HospitalIn the event this information is protected by the Federal Confidentiality of Alcohol and Drug Abuse Patient Records regulations: The Federal rules restrict any use of the information to criminally investigate or prosecute any alcohol or drug abuse patient.[facility] HospitalIn the event this information is protected by the Federal Confidentiality of Alcohol and Drug Abuse Patient Records regulations: The Federal rules restrict any use of the information to criminally investigate or prosecute any alcohol or drug abuse patient.[facility] HospitalIn the event this information is protected by the Federal Confidentiality of Alcohol and Drug Abuse Patient Records regulations: The Federal rules restrict any use of the information to criminally investigate or prosecute any alcohol or drug abuse patient.[facility] HospitalIn the event this information is protected by the Federal Confidentiality of Alcohol and Drug Abuse Patient Records regulations: The Federal rules restrict any use of the information to criminally investigate or prosecute any alcohol or drug abuse patient.[facility] HospitalIn the event this information is protected by the Federal Confidentiality of Alcohol and Drug Abuse Patient Records regulations: The Federal rules restrict any use of the information to criminally investigate or prosecute any alcohol or drug abuse patient.[facility] HospitalIn the event this information is protected by the Federal Confidentiality of Alcohol and Drug Abuse Patient Records regulations: The Federal rules restrict any use of the information to criminally investigate or prosecute any alcohol or drug abuse patient.[facility] HospitalIn the event this information is protected by the Federal Confidentiality of Alcohol and Drug Abuse Patient Records regulations: The Federal rules restrict any use of the information to criminally investigate or prosecute any alcohol or drug abuse patient.[facility] HospitalIn the event this information is protected by the Federal Confidentiality of Alcohol and Drug Abuse Patient Records regulations: The Federal rules restrict any use of the information to criminally investigate or prosecute any alcohol or drug abuse patient.[facility] HospitalIn the event this information is protected by the Federal Confidentiality of Alcohol and Drug Abuse Patient Records regulations: The Federal rules restrict any use of the information to criminally investigate or prosecute any alcohol or drug abuse patient.[facility] HospitalIn the event this information is protected by the Federal Confidentiality of Alcohol and Drug Abuse Patient Records regulations: The Federal rules restrict any use of the information to criminally investigate or prosecute any alcohol or drug abuse patient.[facility] HospitalIn the event this information is protected by the Federal Confidentiality of Alcohol and Drug Abuse Patient Records regulations: The Federal rules restrict any use of the information to criminally investigate or prosecute any alcohol or drug abuse patient.[facility] HospitalIn the event this information is protected by the Federal Confidentiality of Alcohol and Drug Abuse Patient Records regulations: The Federal rules restrict any use of the information to criminally investigate or prosecute any alcohol or drug abuse patient.[facility] HospitalIn the event this information is protected by the Federal Confidentiality of Alcohol and Drug Abuse Patient Records regulations: The Federal rules restrict any use of the information to criminally investigate or prosecute any alcohol or drug abuse patient.[facility] HospitalIn the event this information is protected by the Federal Confidentiality of Alcohol and Drug Abuse Patient Records regulations: The Federal rules restrict any use of the information to criminally investigate or prosecute any alcohol or drug abuse patient.[facility] HospitalIn the event this information is protected by the Federal Confidentiality of Alcohol and Drug Abuse Patient Records regulations: The Federal rules restrict any use of the information to criminally investigate or prosecute any alcohol or drug abuse patient.[facility] FOR RECORDS PERTAINING TO PATIENTS WHO ARE [...] BE BASED ON THE PRIMARY CLINICAL RECORDS. [facility]. provides no warranty or guarantee of the accuracy or completeness of information in this document.
== END 2023-12-04 15:35 | disposition home or self-care (01) ==
LOC: ED 15:21
PROVIDERS: Emergency Provider Emergency Medicine; PCP Family Medicine; Visit Provider Emergency Medicine
DX: S50.02XA Contusion of left elbow, initial encounter (principal); S80.01XA Contusion of right knee, initial encounter; S60.222A Contusion of left hand, initial encounter; W01.10XA Fall on same level from slipping, tripping and stumbling with subsequent striking against unspecified object, initial encounter; R29.6 Repeated falls; I10 Essential (primary) hypertension; E07.9 Disorder of thyroid, unspecified; Z79.899 Other long term (current) drug therapy; Z79.890 Hormone replacement therapy
CPT/HCPCS: 73080; 73130; 99282

== ENCOUNTER 2024-01-27 14:13 | Emergency (ER) | payer MEDICAID, SELFPAY ==
[2024-01-27 14:14] VITALS: BP 155/91; PULSE 91; RESP 16; TEMP 36.6; O2SAT 98; BMI 43.1
--- NOTE | 2024-01-27 15:17 | EDS_ITS ---
HPI <SAMAN Cortez - Last Filed: 01/27/24 16:51> History of Present Illness Chief Complaint: Eye Problem Narrative Narrative: Patient presenting today due to concerns for itchy watery eyes that she has had over the past week. She reports that she is having decreased visual acuity for the past year. Her mom is currently being seen, she called her eye doctor who told her that she could either make an appointment with them or be seen in the ED, she decided to check in since she was already here. She denies any injury to her eyes, foreign body sensation, or chemical exposure. 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 Nondisplaced fracture of middle phalanx of left lesser toe(s), initial encounter for closed fracture Nondisplaced fracture of proximal phalanx of left lesser toe(s), initial encounter for closed fracture Oppositional defiant disorder Osteochondral fracture Right wrist sprain Severe headache Sprain of left index finger Sprain of right hand Sprain of right index finger Thyroid disease Undersocialized conduct disorder, aggressive type, moderate Home Medications norethindrone (contraceptive) 0.35 mg tablet 1 tab PO DAILY hormones/ control 01/21/19 [History Last Taken 04/22/19] meclizine 25 mg tablet 25 mg PO TID PRN vertigo #20 tabs 01/31/21 [Rx Last Taken Unknown] cetirizine 10 mg tablet 10 mg PO DAILY 01/01/22 [History Last Taken Unknown] levothyroxine 88 mcg tablet 88 mcg PO DAILY 05/04/22 [History Last Taken Unknown] sertraline 100 mg tablet 100 mg PO DAILY 10/19/22 [History Last Taken Unknown] albuterol sulfate 90 mcg/actuation aerosol inhaler (Ventolin HFA) 1 inh inhalation DAILY PRN PRN wheezing 03/09/24 [History Last Taken Unknown] bupropion HCl 150 mg 24 hr tablet, extended release 150 mg PO DAILY 12/04/23 [History Last Taken Unknown] cholecalciferol (vitamin D3) 25 mcg (1,000 unit) tablet (Vitamin D3) 25 mcg PO DAILY 12/04/23 [History Last Taken Unknown] hydroxyzine pamoate 50 mg capsule 50 mg PO DAILY PRN anxiety 12/04/23 [History Last Taken Unknown] pantoprazole 20 mg tablet,delayed release 20 mg PO DAILY PRN abdominal discomfort 12/04/23 [History Last Taken Unknown] olopatadine 0.1 % eye drops (Pataday Twice Daily Relief) 1 drp EACH EYE BID #5 mL 01/27/24 [Rx Last Taken Unknown] Allergy/AdvReac Type Severity Reaction Status Date / Time amoxicillin [From Augmentin] Allergy Other Verified 01/27/24 14:15 amoxicillin trihydrate Allergy Other Verified 01/27/24 14:15 [From Augmentin] azithromycin Allergy Other Verified 01/27/24 14:15 clavulanic acid Allergy Other Verified 01/27/24 14:15 [From Augmentin] erythromycin base Allergy Unknown Verified 01/27/24 14:15 [From E-Mycin] potassium clavulanate Allergy Other Verified 01/27/24 14:15 [From Augmentin] ibuprofen AdvReac Nausea Verified 01/27/24 14:15 Surgical History History of ear surgery History of eye surgery Social History household members: other details: Lives with her grandmother Smoking Status: Never smoker alcohol intake: never substance use type: does not use ROS <SAMAN Cortez - Last Filed: 01/27/24 16:51> ROS ED Constitutional Constitutional ED: Denies chills or fever(s) Eyes Eyes: Denies blurry vision or diplopia Cardiovascular Cardiovascular: Denies chest pain Respiratory/Chest Respiratory/Chest: Denies cough or dyspnea Gastrointestinal Gastrointestinal: Denies abdominal pain, nausea or vomiting Musculoskeletal Musculoskeletal: Denies arthralgias or myalgias Integumentary Denies rash Neurologic Neurologic: Denies weakness EXAM <SAMAN Cortez - Last Filed: 01/27/24 16:51> Physical Exam Const Vital Signs: 01/27/24 14:14 Temperature 98 F Temperature Source Temporal Pulse Rate 91 Respiratory Rate 16 Blood Pressure 155/91 H Blood Pressure Mean 112 Pulse Ox 98 Oxygen Delivery Method Room Air Positive well nourished, well developed and no apparent distress General Appearance ED: well developed HEENT Reports normocephalic and head/scalp atraumatic Mouth ED: Yes moist mucous membranes normal Eyes PERRL and EOMs intact bilaterally Neck full ROM and supple Chest Wall inspection of chest normal Resp normal respiratory effort and clear to auscultation bilaterally Cardio regular rate and regular rhythm GI soft to palpation, non-tender, non-distended and no masses Back/Spine normal ROM and normal to inspection Extremity normal to inspection and full ROM Neuro oriented x3, CN's II-XII intact bilaterally, moves all extremities, no focal motor deficits and no sensory deficits noted Sensorium / Orientation: awake and alert Psych mental status grossly normal and thought process normal Skin no rashes or lesions noted and no wounds [facility] <SAMAN Cortez - Last Filed: 01/27/24 16:51> [facility] Narrative Medical decision making narrative: Patient presenting with concerns for itchy and watery eyes. No evidence of orbital cellulitis, conjunctivitis, or foreign body in the eyes. This is likely due to seasonal allergies. Visual acuity was obtained by nursing. She does have an warp preparer to follow-up with. Will give prescription for rewetting drops. Encouraged her to follow-up with ophthalmology and she will be discharged in stable condition. <Dr. Christian Cortez, - Last Filed: 01/27/24 19:13> [facility] Narrative Medical decision making narrative: Patient presenting with concerns for itchy and watery eyes. No evidence of orbital cellulitis, conjunctivitis, or foreign body in the eyes. This is likely due to seasonal allergies. Visual acuity was obtained by nursing. She does have an warp preparer to follow-up with. Will give prescription for rewetting drops. Encouraged her to follow-up with ophthalmology and she will be discharged in stable condition. Attending note: Patient seen and evaluated with extension service advisor. I perform my own [id number] evaluation. I agree with the plan of work-up. Itchy watery eyes for the past month. History of seasonal allergies. Reports last month also have difficulty reading letters up close. Mother states patient has had Pataday in the past. She is followed by [facility]. Eye exam conjunctiva intact. No drainage. She is provided Pataday drops for concerns for allergies with season. She used to follow-up with ophthalmology further eye testing. Discharge Plan Triage Chief Complaint: Eye Problem ED Midlevel Provider: Marlin Mendoza ED Provider: Christian Cortez Dx/Rx/DC Orders Clinical Impression: Dry eyes, Seasonal allergic reaction Instructions: Treating Dry Eyes Prescriptions: New olopatadine [Pataday Twice Daily Relief] 0.1 % drops 1 drp EACH EYE BID Qty: 5 0RF Rx Instructions: separate doses by at least 6-8 hours No Action cetirizine 10 mg tablet 10 mg PO DAILY norethindrone (contraceptive) 0.35 MG tablet 1 tab PO DAILY meclizine 25 mg tablet 25 mg PO TID PRN (Reason: vertigo) Qty: 20 0RF levothyroxine 88 mcg tablet 88 mcg PO DAILY Patient Comments: take 1 tablet by mouth once daily before breakfast sertraline 100 mg tablet 100 mg PO DAILY pantoprazole 20 mg tablet,delayed release (DR/EC) 20 mg PO DAILY PRN (Reason: abdominal discomfort) bupropion HCl 150 mg tablet extended release 24 hr 150 mg PO DAILY cholecalciferol (vitamin D3) [Vitamin D3] 25 mcg (1,000 unit) tablet 25 mcg PO DAILY hydroxyzine pamoate 50 mg capsule 50 mg PO DAILY PRN (Reason: anxiety) albuterol sulfate [Ventolin HFA] 90 mcg/actuation HFA aerosol inhaler 1 inh inhalation DAILY PRN PRN (Reason: wheezing) Primary Care Provider: Gregor Trujillo Referrals: Victor Hugo Walker MD [Med Staff - Active Staff] - 1 Week Gregor Trujillo MD [Primary Care Provider] - Activity Restrictions/Additional Instructions: Please follow-up with your warp preparer. Return for any worsening of your symptoms. Disposition Disposition: Home, Self Care Discharge Date/Time: 01/27/24 16:38
--- NOTE | 2024-01-27 16:35 | ED.RN ---
The patient refused vitals and was getting annoyed because this RN was taking a few minutes to get her discharge paperwork. The patient requested a pharmacy change so this RN informed the patient that I was speaking to her Dr about the change and that it would be a few minutes due to the more critical patient we just got in. Pt rolled her eyes.
== END 2024-01-27 16:38 | disposition home or self-care (01) ==
PROVIDERS: Emergency Provider Emergency Medicine; PCP Family Medicine; Visit Provider Emergency Medicine
DX: J30.2 Other seasonal allergic rhinitis (principal); I10 Essential (primary) hypertension; Z79.899 Other long term (current) drug therapy
CPT/HCPCS: 99283

== ENCOUNTER 2024-02-04 23:56 | Emergency (ER) | payer MEDICAID, SELFPAY ==
[2024-02-04 23:56] VITALS: BP 152/93; PULSE 98; RESP 14; TEMP 36.1; O2SAT 97; BMI 43.9
== END 2024-02-05 01:00 | disposition left against medical advice (07) ==
LOC: ED 02-05 01:24
PROVIDERS: PCP Family Medicine
DX: M54.9 Dorsalgia, unspecified (principal); Z53.21 Procedure and treatment not carried out due to patient leaving prior to being seen by health care provider

== ENCOUNTER 2024-02-15 20:07 | Emergency (ER) | payer MEDICAID, SELFPAY ==
[2024-02-15 20:08] VITALS: BP 133/65; PULSE 107; RESP 16; TEMP 36.1; O2SAT 98; BMI 42.5
--- NOTE | 2024-02-15 20:25 | RAD_ITS ---
EXAM: XR LEFT KNEE, 1 OR 2 VIEWS CLINICAL INDICATION: fall TECHNIQUE: Frontal and/or lateral views of the left knee. COMPARISON: No relevant prior studies available. FINDINGS: BONES/JOINTS: Status post tibial osteotomy other fixation changes associated with the tibial tubercle. Lucencies appear well-defined suggesting recent operative change. Small joint effusion. No distinct acute fracture. No subluxation. Normal alignment. SOFT TISSUES: Pretibial soft tissue edema is identified. No radiopaque foreign body. RAD/Knee 1 or 2 Views IMPRESSION: 1. Pretibial soft tissue edema is identified. This may be postoperative. 2. Status post tibial osteotomy other fixation changes associated with the tibial tubercle. Lucencies appear well-defined suggesting recent operative change. Correlate with prior examinations if available. 3. Small joint effusion. No acute fracture. Electronically Signed: Ganesh Meyers DO at 20:41 EDT ,
[2024-02-16 00:07] VITALS: BP 125/68; PULSE 86; RESP 14; O2SAT 98
--- NOTE | 2024-02-16 00:30 | ED.VIS.LOWEX ---
HPI History of Present Illness Chief Complaint: Lower Extremity Injury Informant: patient Narrative Narrative: 23-year-old female had an accidental fall hitting her left knee, she just had ACL surgery on it as well as a bone graft less than 1 week ago. States she was transferring to the bedside commode and her hands were sweaty and slippery and he slipped on the handle making her fall. No other injuries. [facility] Medical History Fall Sprain of left index finger Contusion of left index finger Injury of left index finger Avulsion of head of fibula Osteochondral fracture COVID-19 Contact with and (suspected) exposure to other viral communicable diseases Acute otitis media, right Bee sting Contusion of right foot Sprain of right index finger 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 Sprain of right hand Right wrist sprain Nondisplaced fracture of proximal phalanx of left lesser toe(s), initial encounter for closed fracture Nondisplaced fracture of middle phalanx of left lesser toe(s), initial encounter for closed fracture Injury of left toe Madelung's deformity Undersocialized conduct disorder, aggressive type, moderate ADHD Oppositional defiant disorder Intellectual disability Thyroid disease Knee pain Severe headache Hay fever Fatigue 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 HTN (hypertension) Home Medications ?Medication ?Instructions ?Recorded ?Last Taken ?Type norethindrone (contraceptive) 0.35 1 tab PO DAILY hormones/ 01/21/19 04/22/19 History mg tablet control meclizine 25 mg tablet 25 mg PO TID PRN vertigo #20 tabs 01/31/21 Unknown Rx cetirizine 10 mg tablet 10 mg PO DAILY 01/01/22 Unknown History levothyroxine 88 mcg tablet 88 mcg PO DAILY 05/04/22 Unknown History sertraline 100 mg tablet 100 mg PO DAILY 10/19/22 Unknown History albuterol sulfate 90 mcg/actuation 1 inh inhalation DAILY PRN PRN 12/04/23 Unknown History aerosol inhaler (Ventolin HFA) wheezing bupropion HCl 150 mg 24 hr tablet, 150 mg PO DAILY 12/04/23 Unknown History extended release cholecalciferol (vitamin D3) 25 25 mcg PO DAILY 12/04/23 Unknown History mcg (1,000 unit) tablet (Vitamin D3) hydroxyzine pamoate 50 mg capsule 50 mg PO DAILY PRN anxiety 12/04/23 Unknown History pantoprazole 20 mg tablet,delayed 20 mg PO DAILY PRN abdominal 12/04/23 Unknown History release discomfort olopatadine 0.1 % eye drops 1 drp EACH EYE BID #5 mL 01/27/24 Unknown Rx (Pataday Twice Daily Relief) Allergy/AdvReac Type Severity Reaction Status Date / Time amoxicillin (From Augmentin) Allergy Other Verified 02/15/24 20:08 amoxicillin trihydrate (From Allergy Other Verified 02/15/24 20:08 Augmentin) azithromycin Allergy Other Verified 02/15/24 20:08 clavulanic acid (From Allergy Other Verified 02/15/24 20:08 Augmentin) erythromycin base (From Allergy Unknown Verified 02/15/24 20:08 E-Mycin) potassium clavulanate (From Allergy Other Verified 02/15/24 20:08 Augmentin) ibuprofen AdvReac Nausea Verified 02/15/24 20:08 Surgical History History of ear surgery History of eye surgery Social History household members: other details: Lives with her grandmother Smoking Status: Never smoker alcohol intake: never substance use type: does not use ROS ROS ED Constitutional Constitutional ED: Denies chills or fever(s) Musculoskeletal Musculoskeletal: Reports extremity pain; Denies neck pain Integumentary Denies Abrasions, rash or wounds Neurologic Neurologic: Denies paresthesias or weakness EXAM Physical Exam Const Vital Signs: 02/15/24 20:08 02/16/24 00:07 Temperature 97 F L Temperature Source Temporal Pulse Rate 107 H 86 Respiratory Rate 16 14 Blood Pressure 133/65 H 125/68 H Blood Pressure Mean 87 87 Pulse Ox 98 98 Positive well nourished and well developed General Appearance ED: well developed and NAD Neck full ROM and supple Back/Spine normal ROM and normal to inspection Extremity Extremity Narrative: Limited range of motion left knee due to recent surgery, pain, and motion restrictions. There are multiple surgical incisions anteriorly they all look benign, no dehiscence, no signs of infection or discharge or bleeding. Many of them have iodoform gauze on them. There is aging ecchymosis trailing distally down the webb without any tenderness there, she has diffuse tenderness anteriorly where the surgical site is. Extensor mechanism appears to be intact she can flex the quad but she is not supposed to lift her leg up. I am not having her bend. There is no deformity. Medial and lateral collateral ligaments are intact without any pain on stressing. Neuro oriented x3, no focal motor deficits and no sensory deficits noted Sensorium / Orientation: alert Psych mental status grossly normal and thought process normal Skin no wounds Rashes: no rashes MDM MDM MDM Narrative Medical decision making narrative: 2 view x-ray series of the left knee my interpretation negative for acute fracture or dislocation. Postoperative changes noted. Radiology in agreement. Reassured, she has a knee immobilizer and will be discharged to follow-up. Radiography Diagnostic Testing: Clinical Impression(s) from Imaging Studies Knee X-Ray 02/15/24 20:25 IMPRESSION: 1. Pretibial soft tissue edema is identified. This may be postoperative. 2. Status post tibial osteotomy other fixation changes associated with the tibial tubercle. Lucencies appear well-defined suggesting recent operative change. Correlate with prior examinations if available. 3. Small joint effusion. No acute fracture. Electronically Signed: Ganesh Meyers DO at 20:41 EDT , Discharge Plan Triage Chief Complaint: Lower Extremity Injury ED Provider: Reji Henderson Dx/Rx/DC Orders Clinical Impression: Contusion of knee, left Instructions: Bruises (Contusions) Prescriptions: No Action cetirizine 10 mg tablet 10 mg PO DAILY norethindrone (contraceptive) 0.35 MG tablet 1 tab PO DAILY meclizine 25 mg tablet 25 mg PO TID PRN (Reason: vertigo) Qty: 20 0RF levothyroxine 88 mcg tablet 88 mcg PO DAILY Patient Comments: take 1 tablet by mouth once daily before breakfast sertraline 100 mg tablet 100 mg PO DAILY pantoprazole 20 mg tablet,delayed release (DR/EC) 20 mg PO DAILY PRN (Reason: abdominal discomfort) bupropion HCl 150 mg tablet extended release 24 hr 150 mg PO DAILY cholecalciferol (vitamin D3) [Vitamin D3] 25 mcg (1,000 unit) tablet 25 mcg PO DAILY hydroxyzine pamoate 50 mg capsule 50 mg PO DAILY PRN (Reason: anxiety) albuterol sulfate [Ventolin HFA] 90 mcg/actuation HFA aerosol inhaler 1 inh inhalation DAILY PRN PRN (Reason: wheezing) olopatadine [Pataday Twice Daily Relief] 0.1 % drops 1 drp EACH EYE BID Qty: 5 0RF Rx Instructions: separate doses by at least 6-8 hours Primary Care Provider: Gregor Trujillo Referrals: Gregor Trujillo MD [Primary Care Provider] - Doctor,Your [Non-Staff] - (Orthopedics as scheduled for your next appointment) Print Language: Czech Disposition Disposition: Home, Self Care
[2024-02-16 00:33] VITALS: BP 125/68; PULSE 86; RESP 14; TEMP 36.1; O2SAT 98
== END 2024-02-16 00:42 | disposition home or self-care (01) ==
LOC: ED 02-16 00:39
PROVIDERS: Emergency Provider Emergency Medicine; PCP Family Medicine; Visit Provider Emergency Medicine
DX: S80.02XA Contusion of left knee, initial encounter (principal); W18.11XA Fall from or off toilet without subsequent striking against object, initial encounter; Z98.890 Other specified postprocedural states; I10 Essential (primary) hypertension; Z79.899 Other long term (current) drug therapy
CPT/HCPCS: 73560; 99282

== ENCOUNTER 2024-03-29 16:26 | Emergency (ER) | payer MEDICAID, SELFPAY ==
[2024-03-29 16:27] VITALS: BP 149/109; PULSE 100; RESP 18; TEMP 36.6; O2SAT 99; BMI 43.6
== END 2024-03-29 19:00 | disposition left against medical advice (07) ==
LOC: ED 19:18
PROVIDERS: PCP Family Medicine
DX: R30.0 Dysuria (principal); Z53.21 Procedure and treatment not carried out due to patient leaving prior to being seen by health care provider

== ENCOUNTER 2024-04-15 01:54 | Emergency (ER) | payer MEDICAID, SELFPAY ==
[2024-04-15 01:56] VITALS: BP 145/86; PULSE 102; RESP 18; TEMP 36.8; O2SAT 98; BMI 43.9
--- NOTE | 2024-04-15 02:48 | ED.VIS.FALL ---
HPI HPI - Fall History of Present Illness Chief Complaint: Fall Informant: patient Occured/Mechanism Occurred: Today and Hours Mechanism/Context: Yes same level fall and Yes trip Usually ambulates: Without assistance Pain/Injury Pain Location: back Quality of Pain: Dull and Aching Current Severity: Mild Maximum Severity: Mild Associated Symptoms Associated Symptoms: Negative for Parasthesias, Weakness, Loss of function, Inability to ambulate, Loss of consciousness or Amnesia Narrative Narrative: 23-year-old female well-known to this emergency department. Reportedly tripped and fell at home injuring her right upper back just below her neck and shoulder region. Did not hit her head. No LOC. No neck pain. No weakness or numbness. This occurred about 2 hours ago. Said her knee gives out from time to time her knee gave out and she lost her balance and fell. Denies any head injury or LOC. She is not on any blood thinners. She has not been recently ill. Prior similar symptoms: Yes Recent Illness/Hospitalization: No PFSH PFSH Medical History Fall Sprain of left index finger Contusion of left index finger Injury of left index finger Avulsion of head of fibula Osteochondral fracture COVID-19 Contact with and (suspected) exposure to other viral communicable diseases Acute otitis media, right Bee sting Contusion of right foot Sprain of right index finger 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 Sprain of right hand Right wrist sprain Nondisplaced fracture of proximal phalanx of left lesser toe(s), initial encounter for closed fracture Nondisplaced fracture of middle phalanx of left lesser toe(s), initial encounter for closed fracture Injury of left toe Madelung's deformity Undersocialized conduct disorder, aggressive type, moderate ADHD Oppositional defiant disorder Intellectual disability Thyroid disease Knee pain Severe headache Hay fever Fatigue 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 HTN (hypertension) Home Medications ?Medication ?Instructions ?Recorded ?Last Taken ?Type norethindrone (contraceptive) 0.35 1 tab PO DAILY hormones/ 01/21/19 04/22/19 History mg tablet control meclizine 25 mg tablet 25 mg PO TID PRN vertigo #20 tabs 01/31/21 Unknown Rx cetirizine 10 mg tablet 10 mg PO DAILY 01/01/22 Unknown History levothyroxine 88 mcg tablet 88 mcg PO DAILY 05/04/22 Unknown History sertraline 100 mg tablet 100 mg PO DAILY 10/19/22 Unknown History albuterol sulfate 90 mcg/actuation 1 inh inhalation DAILY PRN PRN 12/04/23 Unknown History aerosol inhaler (Ventolin HFA) wheezing bupropion HCl 150 mg 24 hr tablet, 150 mg PO DAILY 12/04/23 Unknown History extended release cholecalciferol (vitamin D3) 25 25 mcg PO DAILY 12/04/23 Unknown History mcg (1,000 unit) tablet (Vitamin D3) hydroxyzine pamoate 50 mg capsule 50 mg PO DAILY PRN anxiety 12/04/23 Unknown History pantoprazole 20 mg tablet,delayed 20 mg PO DAILY PRN abdominal 12/04/23 Unknown History release discomfort olopatadine 0.1 % eye drops 1 drp EACH EYE BID #5 mL 01/27/24 Unknown Rx (Pataday Twice Daily Relief) Allergy/AdvReac Type Severity Reaction Status Date / Time amoxicillin (From Augmentin) Allergy Other Verified 03/29/24 16:28 amoxicillin trihydrate (From Allergy Other Verified 03/29/24 16:28 Augmentin) azithromycin Allergy Other Verified 03/29/24 16:28 clavulanic acid (From Allergy Other Verified 03/29/24 16:28 Augmentin) erythromycin base (From Allergy Unknown Verified 03/29/24 16:28 E-Mycin) potassium clavulanate (From Allergy Other Verified 03/29/24 16:28 Augmentin) ibuprofen AdvReac Nausea Verified 03/29/24 16:28 Surgical History History of ear surgery History of eye surgery Social History household members: other details: Lives with her grandmother Smoking Status: Never smoker alcohol intake: never substance use type: does not use ROS ROS ED ROS Narrative Denies recent illness. Review of Systems ROS Unobtainable: Denies due to encephalopathy Constitutional Constitutional ED: Denies chills or fever(s) Eyes Eyes: Denies blurry vision ENT ENT ED: Denies ear pain Cardiovascular Cardiovascular: Denies chest pain Respiratory/Chest Respiratory/Chest: Denies cough or dyspnea Gastrointestinal Gastrointestinal: Denies abdominal pain Genitourinary Genitourinary ED: Denies dysuria or hematuria Musculoskeletal Musculoskeletal: Reports back pain and other Details: Right upper post fall. ; Denies arthralgias Integumentary Denies abscess or Abrasions Neurologic Neurologic: Denies headache(s) Psychiatric Psychiatric: Denies anxiety or depression Endocrine Endocrinology: Denies polydipsia Hematologic/Lymphatic Hematologic/Lymphatic: Denies easy bleeding Allergic/Immunologic Allergic/Immunologic ED: Denies mouth swelling, tongue swelling or urticaria EXAM Physical Exam Narrative Exam Narrative: Well-appearing 23-year-old female. Vital signs stable afebrile. H EENT exam pupils round react to light. No signs of trauma to her face or dentition. Scalp nontender no hematoma. No laceration. Neck C-spine and trachea midline. Lungs clear to auscultation bilaterally. Heart regular rhythm no murmur rate about 100. Chest wall and ribs nontender. Abdomen soft nontender. No peritoneal signs. Pelvic girdle intact. Moving all 4 extremities. 5 of 5 dat instructor strength. Normal range of motion. Nontender no deformity. Dorsi plantarflexion intact. No shortening or rotation either hip. Back she has tenderness on her right upper posterior shoulder region. Lateral to the thoracic spine. And below the upper portion of the scapula. There is no bruising or ecchymosis. Mildly tender. No deformity. Moving all 4 extremities. 5 out of 5 dat instructor strength. Normal range of motion. No deformity or tenderness. No loss of range of motion. Neurologically she is awake alert no focal motor deficits. Const Vital Signs: 04/15/24 01:56 04/15/24 01:59 Temperature 98.2 F Temperature Source Oral Pulse Rate 102 H Respiratory Rate 18 Respiratory Effort Normal Non-Labored Respiratory Depth Normal Respiratory Pattern Normal Blood Pressure 145/86 H Blood Pressure Mean 105 Pulse Ox 98 Oxygen Delivery Method Room Air Positive well nourished and well developed; Negative for cachectic, contractures or unkempt General Appearance ED: well developed; Negative for unkempt, cachectic or contractures Nutritional Appearance: Negative for cachectic HEENT Reports normocephalic atraumatic; Negative for trauma, contusion, hematoma or tenderness Eyes PERRL and EOMs intact bilaterally General Eye ED: Negative for pale conjunctiva, scleral icterus or other Neck full ROM, no lymphadenopathy and supple General: Negative for tenderness Chest Wall inspection of chest normal and palpation of chest normal Chest: Negative for other Resp normal respiratory effort, no retractions and clear to auscultation bilaterally Effort and Inspection: Negative for pain with movement Auscultation: Negative for rales, rhonchi, wheezes or diminished lung sounds Cardio regular rate, regular rhythm, S1 normal heart sound, S2 normal heart sound and no murmurs Rate: Negative for bradycardia or tachycardic Rhythm: Negative for abnormal rhythm Bruits: Negative for other GI non-tender, non-distended and no masses Inspection: Negative for abdominal distention Palpation: soft; Negative for guarding or rebound tenderness present Back/Spine no CVA tenderness General Back: Negative for CVA tenderness, erythema, ecchymosis or tenderness Cervical Spine: Negative for cervical spine tenderness Lumbar Spine / Lower Back: Negative for lumbar spinal tenderness Neuro oriented x3, CN's II-XII intact bilaterally, moves all extremities and no focal motor deficits Sensorium / Orientation: alert, oriented to person, oriented to place and oriented to time; Negative for orientation impaired, confused or lethargic Motor Exam: strength 5/5 throughout Psych mental status grossly normal and thought process normal Appearance: Negative for unkempt Attitude: No agitated Mood & Affect: Negative for depressed, anxious or tearful Skin General Skin Exam: Negative for other Lesions: no lesions Rashes: no rashes Trauma: Negative for abrasion, laceration or puncture Image ED - Body Diagram Man: 1. Right upper shoulder blade region tenderness. No bruising. No deformity. No hematoma. No signs of trauma. Tender to palpation. MDM MDM MDM Narrative Medical decision making narrative: 23-year-old female reportedly fell at home complaining of right upper back pain. Exam benign. Appears to be a soft tissue contusion. I do not think she needs any imaging. There is no head injury. No LOC. She has normal range of motion to her extremities also strength and sensation. Motrin for pain. Discharge. Follow-up as needed. History & Record Review Discussion w/independent historian: Patient Additional record(s) reviewed:: Prior inpatient record, Prior outpatient record, Prior ED visit and Prior labs Lab Data Attestation: I reviewed the patient's lab results. Discharge Plan Triage Chief Complaint: Fall ED Provider: Godfrey Mcintosh Dx/Rx/DC Orders Clinical Impression: Fall, Back contusion Instructions: ED Back Contusion Prescriptions: No Action cetirizine 10 mg tablet 10 mg PO DAILY norethindrone (contraceptive) 0.35 MG tablet 1 tab PO DAILY meclizine 25 mg tablet 25 mg PO TID PRN (Reason: vertigo) Qty: 20 0RF levothyroxine 88 mcg tablet 88 mcg PO DAILY Patient Comments: take 1 tablet by mouth once daily before breakfast sertraline 100 mg tablet 100 mg PO DAILY pantoprazole 20 mg tablet,delayed release (DR/EC) 20 mg PO DAILY PRN (Reason: abdominal discomfort) bupropion HCl 150 mg tablet extended release 24 hr 150 mg PO DAILY cholecalciferol (vitamin D3) [Vitamin D3] 25 mcg (1,000 unit) tablet 25 mcg PO DAILY hydroxyzine pamoate 50 mg capsule 50 mg PO DAILY PRN (Reason: anxiety) albuterol sulfate [Ventolin HFA] 90 mcg/actuation HFA aerosol inhaler 1 inh inhalation DAILY PRN PRN (Reason: wheezing) olopatadine [Pataday Twice Daily Relief] 0.1 % drops 1 drp EACH EYE BID Qty: 5 0RF Rx Instructions: separate doses by at least 6-8 hours Primary Care Provider: Gregor Trujillo Referrals: Gregor Trujillo MD [Primary Care Provider] - 1 Week if not improving Activity Restrictions/Additional Instructions: Ice to your sore upper back and shoulder. Alternate Motrin and Tylenol for pain. This should progressively get better if not follow-up with your doctor. Print Language: Turkish Disposition Disposition: Home, Self Care
[2024-04-15] MEDS: Ibuprofen 600 MG Tablet PO (02:51)
[2024-04-15 03:17] VITALS: BP 161/93; PULSE 86; RESP 18; TEMP 36.7; O2SAT 98
== END 2024-04-15 03:20 | disposition home or self-care (01) ==
PROVIDERS: Emergency Provider Emergency Medicine; PCP Family Medicine; Visit Provider Emergency Medicine
DX: S20.221A Contusion of right back wall of thorax, initial encounter (principal); W18.09XA Striking against other object with subsequent fall, initial encounter; Y92.009 Unspecified place in unspecified non-institutional (private) residence as the place of occurrence of the external cause; I10 Essential (primary) hypertension; Z79.899 Other long term (current) drug therapy
CPT/HCPCS: 99282

== ENCOUNTER 2024-04-23 18:07 | Emergency (ER) | payer MEDICAID, SELFPAY ==
[2024-04-23 18:08] VITALS: BP 133/80; PULSE 103; RESP 18; TEMP 36.6; O2SAT 96; BMI 43.7
--- NOTE | 2024-04-23 18:21 | RAD_ITS ---
EXAM: XR RIGHT SHOULDER COMPLETE, 2 OR MORE VIEWS CLINICAL INDICATION: injury TECHNIQUE: Two or more views of the right shoulder. COMPARISON: 10.06.22 FINDINGS: BONES/JOINTS: Unremarkable. No acute fracture. No subluxation. Normal alignment. Preservation of the joint space. No sclerotic or destructive changes observed. SOFT TISSUES: Unremarkable. No soft tissue swelling or gas. No radiopaque foreign body. RAD/Shoulder min 2 Views IMPRESSION: Negative right shoulder x-rays. Electronically Signed: Júnior Diaz MD at 19:20 EDT ,
--- NOTE | 2024-04-23 18:23 | RAD_ITS ---
EXAM: XR RIGHT FOOT COMPLETE, 3 OR MORE VIEWS CLINICAL INDICATION: pain TECHNIQUE: Frontal, lateral and oblique views of the right foot. COMPARISON: No relevant prior studies available. FINDINGS: BONES/JOINTS: Achilles spur. No acute fracture. No subluxation. Normal alignment. Preservation of the joint space. No sclerotic or destructive changes observed. SOFT TISSUES: Unremarkable. No soft tissue swelling or gas. No radiopaque foreign body. RAD/Foot min 3 Views IMPRESSION: Achilles spur. Electronically Signed: Júnior Diaz MD at 19:11 EDT ,
--- NOTE | 2024-04-23 18:25 | RAD_ITS ---
EXAM: XR LEFT FOOT COMPLETE, 3 OR MORE VIEWS CLINICAL INDICATION: injury TECHNIQUE: Frontal, lateral and oblique views of the left foot. COMPARISON: No relevant prior studies available. FINDINGS: BONES/JOINTS: Achilles spur. No acute fracture. No subluxation. Normal alignment. Preservation of the joint space. No sclerotic or destructive changes observed. SOFT TISSUES: Unremarkable. No soft tissue swelling or gas. No radiopaque foreign body. RAD/Foot min 3 Views IMPRESSION: Achilles spur. Electronically Signed: Júnior Diaz MD at 19:09 EDT ,
--- NOTE | 2024-04-23 18:38 | EDS_ITS ---
HPI History of Present Illness Chief Complaint: Lower Extremity Injury Informant: patient Narrative Narrative: 23-year-old female presents because of injuries to her right foot and her right shoulder that occurred maybe last week she said when she got her foot stuck under a dresser, falling into the dresser against her right shoulder. She complains of pain in her right great toe and forefoot just proximal to that, the right trapezius area as well as the clavicle. She can lift the shoulder/arm. She also states that is a separate injury she had a minor injury when she was walking to her left great toe and once both feet x-rayed. She has been able to ambulate since all of this. [facility] Medical History Fall Sprain of left index finger Contusion of left index finger Injury of left index finger Avulsion of head of fibula Osteochondral fracture COVID-19 Contact with and (suspected) exposure to other viral communicable diseases Acute otitis media, right Bee sting Contusion of right foot Sprain of right index finger 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 Sprain of right hand Right wrist sprain Nondisplaced fracture of proximal phalanx of left lesser toe(s), initial encounter for closed fracture Nondisplaced fracture of middle phalanx of left lesser toe(s), initial encounter for closed fracture Injury of left toe Madelung's deformity Undersocialized conduct disorder, aggressive type, moderate ADHD Oppositional defiant disorder Intellectual disability Thyroid disease Knee pain Severe headache Hay fever Fatigue 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 HTN (hypertension) Home Medications ?Medication ?Instructions ?Recorded ?Last Taken ?Type norethindrone (contraceptive) 0.35 1 tab PO DAILY hormones/ 01/21/19 04/22/19 History mg tablet control meclizine 25 mg tablet 25 mg PO TID PRN vertigo #20 tabs 01/31/21 Unknown Rx cetirizine 10 mg tablet 10 mg PO DAILY 01/01/22 Unknown History levothyroxine 88 mcg tablet 88 mcg PO DAILY 05/04/22 Unknown History sertraline 100 mg tablet 100 mg PO DAILY 10/19/22 Unknown History albuterol sulfate 90 mcg/actuation 1 inh inhalation DAILY PRN PRN 12/04/23 Unknown History aerosol inhaler (Ventolin HFA) wheezing bupropion HCl 150 mg 24 hr tablet, 150 mg PO DAILY 12/04/23 Unknown History extended release cholecalciferol (vitamin D3) 25 25 mcg PO DAILY 12/04/23 Unknown History mcg (1,000 unit) tablet (Vitamin D3) hydroxyzine pamoate 50 mg capsule 50 mg PO DAILY PRN anxiety 12/04/23 Unknown History pantoprazole 20 mg tablet,delayed 20 mg PO DAILY PRN abdominal 12/04/23 Unknown History release discomfort olopatadine 0.1 % eye drops 1 drp EACH EYE BID #5 mL 01/27/24 Unknown Rx (Pataday Twice Daily Relief) Allergy/AdvReac Type Severity Reaction Status Date / Time amoxicillin (From Augmentin) Allergy Other Verified 04/23/24 18:08 amoxicillin trihydrate (From Allergy Other Verified 04/23/24 18:08 Augmentin) azithromycin Allergy Other Verified 04/23/24 18:08 clavulanic acid (From Allergy Other Verified 04/23/24 18:08 Augmentin) erythromycin base (From Allergy Unknown Verified 04/23/24 18:08 E-Mycin) potassium clavulanate (From Allergy Other Verified 04/23/24 18:08 Augmentin) ibuprofen AdvReac Nausea Verified 04/23/24 18:08 Surgical History History of ear surgery History of eye surgery Social History household members: other details: Lives with her grandmother Smoking Status: Never smoker alcohol intake: never substance use type: does not use ROS ROS ED Constitutional Constitutional ED: Denies chills or fever(s) Musculoskeletal Musculoskeletal: Reports extremity pain; Denies neck pain Integumentary Denies Abrasions, rash or wounds Neurologic Neurologic: Denies paresthesias or weakness EXAM Physical Exam Const Vital Signs: 04/23/24 18:08 Temperature 98 F Temperature Source Temporal Pulse Rate 103 H Respiratory Rate 18 Blood Pressure 133/80 H Blood Pressure Mean 97 Pulse Ox 96 Oxygen Delivery Method Room Air Positive well nourished and well developed General Appearance ED: well developed and NAD Neck full ROM and supple Back/Spine normal ROM and normal to inspection Extremity Extremity Narrative: Mildly tender to the right great toe and the distal half of both first and second metacarpals, as well as the second MTPJ joint. All normal-appearing on inspection, no swelling or deformities or signs of obvious trauma. With regards to the right shoulder, she has full range of motion, there is tenderness in the distal half of the clavicle but not at the acromioclavicular joint, not the proximal humerus. Only the trapezius muscles. Neuro oriented x3, no focal motor deficits and no sensory deficits noted Sensorium / Orientation: alert Psych mental status grossly normal and thought process normal Skin no wounds Rashes: no rashes MDM MDM MDM Narrative Medical decision making narrative: Three-view x-rays of the right shoulder, three-view x-rays of the right foot, and three-view x-rays of the left foot are all negative for any acute fracture on my interpretation. Patient reassured, given appropriate discharge instructions. Radiography Diagnostic Testing: Clinical Impression(s) from Imaging Studies Shoulder X-Ray 04/23/24 18:21 IMPRESSION: Negative right shoulder x-rays. Electronically Signed: Júnior Diaz MD at 19:20 EDT , Foot X-Ray 04/23/24 18:23 IMPRESSION: Achilles spur. Electronically Signed: Júnior Diaz MD at 19:11 EDT , Foot X-Ray 04/23/24 18:25 IMPRESSION: Achilles spur. Electronically Signed: Júnior Diaz MD at 19:09 EDT , Discharge Plan Triage Chief Complaint: Lower Extremity Injury ED Provider: Reji Henderson Dx/Rx/DC Orders Clinical Impression: Contusion of right shoulder, Contusion of foot, right, Contusion of foot, left Instructions: ED Foot Contusion Prescriptions: No Action cetirizine 10 mg tablet 10 mg PO DAILY norethindrone (contraceptive) 0.35 MG tablet 1 tab PO DAILY meclizine 25 mg tablet 25 mg PO TID PRN (Reason: vertigo) Qty: 20 0RF levothyroxine 88 mcg tablet 88 mcg PO DAILY Patient Comments: take 1 tablet by mouth once daily before breakfast sertraline 100 mg tablet 100 mg PO DAILY pantoprazole 20 mg tablet,delayed release (DR/EC) 20 mg PO DAILY PRN (Reason: abdominal discomfort) bupropion HCl 150 mg tablet extended release 24 hr 150 mg PO DAILY cholecalciferol (vitamin D3) [Vitamin D3] 25 mcg (1,000 unit) tablet 25 mcg PO DAILY hydroxyzine pamoate 50 mg capsule 50 mg PO DAILY PRN (Reason: anxiety) albuterol sulfate [Ventolin HFA] 90 mcg/actuation HFA aerosol inhaler 1 inh inhalation DAILY PRN PRN (Reason: wheezing) olopatadine [Pataday Twice Daily Relief] 0.1 % drops 1 drp EACH EYE BID Qty: 5 0RF Rx Instructions: separate doses by at least 6-8 hours Primary Care Provider: Gregor Trujillo Referrals: Gregor Trujillo MD [Primary Care Provider] - As Needed Print Language: Latvian Disposition Disposition: Home, Self Care
== END 2024-04-23 19:55 | disposition home or self-care (01) ==
PROVIDERS: Emergency Provider Emergency Medicine; PCP Family Medicine; Visit Provider Emergency Medicine
DX: S40.011A Contusion of right shoulder, initial encounter (principal); I10 Essential (primary) hypertension; S90.31XA Contusion of right foot, initial encounter; S90.32XA Contusion of left foot, initial encounter; M76.60 Achilles tendinitis, unspecified leg; D64.9 Anemia, unspecified; F90.9 Attention-deficit hyperactivity disorder, unspecified type; Z86.16 Personal history of COVID-19; W08.XXXA Fall from other furniture, initial encounter; F91.3 Oppositional defiant disorder
CPT/HCPCS: 73030; 73630; 99283

== ENCOUNTER 2024-06-06 07:29 | Emergency (ER) | payer MEDICAID, SELFPAY ==
[2024-06-06 07:30] VITALS: BP 128/87; PULSE 84; RESP 14; TEMP 36.6; O2SAT 98; BMI 44.3
--- NOTE | 2024-06-06 08:02 | EDS_ITS ---
HPI History of Present Illness Chief Complaint: Nausea/Vomiting Detail of Chief Complaint: Nausea and vomiting Informant: patient Narrative Narrative: Patient brought to the emergency department by her mother with complaint of nausea and vomiting. She started vomiting last evening and is thrown up twice. Her grandfather made some potato soup with some onions and she is not sure if that is what may be causing her symptoms. She describes some upper abdomen pain that she states is really standard for her. Denies fevers or chills or sweats. She has had a cough for a couple of days. She denies any diarrhea. [facility] Medical History Fall Sprain of left index finger Contusion of left index finger Injury of left index finger Avulsion of head of fibula Osteochondral fracture COVID-19 Contact with and (suspected) exposure to other viral communicable diseases Acute otitis media, right Bee sting Contusion of right foot Sprain of right index finger 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 Sprain of right hand Right wrist sprain Nondisplaced fracture of proximal phalanx of left lesser toe(s), initial encounter for closed fracture Nondisplaced fracture of middle phalanx of left lesser toe(s), initial encounter for closed fracture Injury of left toe Madelung's deformity Undersocialized conduct disorder, aggressive type, moderate ADHD Oppositional defiant disorder Intellectual disability Thyroid disease Knee pain Severe headache Hay fever Fatigue 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 HTN (hypertension) Home Medications ?Medication ?Instructions ?Recorded ?Last Taken ?Type norethindrone (contraceptive) 0.35 1 tab PO DAILY hormones/ 01/21/19 04/22/19 History mg tablet control meclizine 25 mg tablet 25 mg PO TID PRN vertigo #20 tabs 01/31/21 Unknown Rx cetirizine 10 mg tablet 10 mg PO DAILY 01/01/22 Unknown History levothyroxine 88 mcg tablet 88 mcg PO DAILY 05/04/22 Unknown History sertraline 100 mg tablet 100 mg PO DAILY 10/19/22 Unknown History albuterol sulfate 90 mcg/actuation 1 inh inhalation DAILY PRN PRN 12/04/23 Unknown History aerosol inhaler (Ventolin HFA) wheezing bupropion HCl 150 mg 24 hr tablet, 150 mg PO DAILY 12/04/23 Unknown History extended release cholecalciferol (vitamin D3) 25 25 mcg PO DAILY 12/04/23 Unknown History mcg (1,000 unit) tablet (Vitamin D3) hydroxyzine pamoate 50 mg capsule 50 mg PO DAILY PRN anxiety 12/04/23 Unknown History pantoprazole 20 mg tablet,delayed 20 mg PO DAILY PRN abdominal 12/04/23 Unknown History release discomfort olopatadine 0.1 % eye drops 1 drp EACH EYE BID #5 mL 01/27/24 Unknown Rx (Pataday Twice Daily Relief) Allergy/AdvReac Type Severity Reaction Status Date / Time amoxicillin (From Augmentin) Allergy Other Verified 06/06/24 07:30 amoxicillin trihydrate (From Allergy Other Verified 06/06/24 07:30 Augmentin) azithromycin Allergy Other Verified 06/06/24 07:30 clavulanic acid (From Allergy Other Verified 06/06/24 07:30 Augmentin) erythromycin base (From Allergy Unknown Verified 06/06/24 07:30 E-Mycin) potassium clavulanate (From Allergy Other Verified 06/06/24 07:30 Augmentin) ibuprofen AdvReac Nausea Verified 06/06/24 07:30 Surgical History History of ear surgery History of eye surgery Social History household members: other details: Lives with her grandmother Smoking Status: Never smoker alcohol intake: never substance use type: does not use ROS ROS ED Review of Systems ROS Unobtainable: other Constitutional Constitutional ED: Reports lethargy; Denies chills, fever(s), sweats or weight loss Eyes Eyes: Denies blurry vision, change in vision or diplopia ENT ENT ED: Denies rhinorrhea or sore throat Cardiovascular Cardiovascular: Denies chest pain, orthopnea or racing heartbeat Respiratory/Chest Respiratory/Chest: Denies cough, dyspnea, dyspnea on exertion, orthopnea or sputum Gastrointestinal Gastrointestinal: Reports abdominal pain, nausea and vomiting; Denies diarrhea Genitourinary Genitourinary ED: Denies dysuria, hematuria or urinary frequency Musculoskeletal Musculoskeletal: Denies arthralgias, back pain, myalgias or neck pain Integumentary Denies abscess, Abrasions or rash Neurologic Neurologic: Denies headache(s) or weakness Psychiatric Psychiatric: Denies anxiety, depression or suicidal thoughts Endocrine Endocrinology: Denies polydipsia, polyphagia or polyuria Hematologic/Lymphatic Hematologic/Lymphatic: Denies easy bleeding, easy bruising or lymphadenopathy Allergic/Immunologic Allergic/Immunologic ED: Denies mouth swelling, tongue swelling or urticaria EXAM Physical Exam Const Vital Signs: 06/06/24 07:30 Temperature 98 F Temperature Source Temporal Pulse Rate 84 Respiratory Rate 14 Blood Pressure 128/87 H Blood Pressure Mean 100 Pulse Ox 98 Oxygen Delivery Method Room Air Positive well nourished and well developed General Appearance ED: well developed and NAD HEENT Reports TM's clear and moist mucous membranes normocephalic and atraumatic; Negative for trauma or tenderness Tympanic Membrane ED: Yes TM's clear Eyes PERRL and EOMs intact bilaterally General Eye ED: Negative for pale conjunctiva or scleral icterus Neck no lymphadenopathy, supple and no JVD General: Negative for tenderness Chest Wall inspection of chest normal and palpation of chest normal Chest: Negative for tenderness Resp normal respiratory effort and clear to auscultation bilaterally Effort and Inspection: Negative for respiratory distress or pain with movement Auscultation: Negative for rhonchi, wheezes or diminished lung sounds Cardio regular rate, regular rhythm, S1 normal heart sound, S2 normal heart sound and no murmurs Peripheral Pulses: pulses 2+ throughout GI normal to inspection, nondistended, normoactive bowel sounds, soft to palpation, non-distended and no masses GI Narrative: Mild diffuse tenderness over the epigastric region and right upper quadrant. There is no rebound, rigidity, or peritoneal signs. No mass palpated. Back/Spine no CVA tenderness and no thoracic nor lumbar tenderness Extremity normal to inspection General Extremety ED: Negative for edema General Extremity: Negative for edema Neuro oriented x3, CN's II-XII intact bilaterally, no sensory deficits noted and gait normal Sensorium / Orientation: awake, alert, oriented to person, oriented to place and oriented to time Motor Exam: strength 5/5 throughout and strength abnormal Psych mental status grossly normal Skin no rashes or lesions noted and no wounds MDM MDM MDM Narrative Medical decision making narrative: Patient presents to the emergency department with complaint of nausea and vomiting x 2. She complains of some mild upper abdominal discomfort which at times is chronic. Patient's mother had some stomach upset recently as well and has Zofran at home. Clinically she looks well. Patient does have history of some intellectual disability. IV line established. She was medicated with Zofran and given normal saline. CBC with differential recommend 10.7 with hemoglobin 13 and platelet count of 376. Chemistries unremarkable. LFTs unremarkable. Urinalysis was normal and hCG was negative. After treatment she felt improved. She had no further vomiting. Should be discharged to home. She has Zofran at home. Advised to follow-up with primary care physician 3 to 5 days Lab Data Attestation: I reviewed the patient's lab results. Labs: Laboratory Results - last 24 hr 06/06/24 06/06/24 08:15 08:40 WBC 10.7 RBC 4.79 Hgb 13.2 Hct 42.8 MCV 89.4 MCH 27.6 MCHC 30.8 L RDW Std Deviation 44.8 H RDW Coeff of [place] 13.7 Plt Count 376 MPV 10.5 Immature Gran % (Auto) 0.300 Neut % (Auto) 46.8 L Lymph % (Auto) 42.9 H [place] % (Auto) 7.6 Eos % (Auto) 1.6 Baso % (Auto) 0.8 Absolute Neuts (auto) 5.0 Absolute Lymphs (auto) 4.61 H Nucleated RBC % 0 Sodium 139 Potassium 3.9 Chloride 104 Carbon Dioxide 30.0 Anion Gap 5 BUN 11 Creatinine 0.76 Estim Creat Clear Calc 160.52 Est GFR (MDRD) Af Amer 120 Est GFR (MDRD) Non-Af 99 BUN/Creatinine Ratio 14.4 Glucose 108 H Calcium 9.7 Total Bilirubin 0.40 AST 14 L ALT 27 Alkaline Phosphatase 99 Total Protein 7.3 Albumin 3.7 Globulin 3.6 Albumin/Globulin Ratio 1.0 Serum , Qual NEGATIVE Urine Color Yellow Urine Clarity Clear Urine pH 6.0 Ur Specific [place] 1.020 Urine Protein 15 H Urine Glucose (UA) Normal Urine Ketones Negative Urine Occult Blood Negative Urine Nitrite Negative Urine Bilirubin Negative Urine Urobilinogen Normal Ur Leukocyte Esterase 500 H Urine RBC 0 SEEN Urine WBC 0-5 SEEN Ur Squamous Epith Cells 0-5 SEEN Urine Bacteria 0 SEEN Urine Mucus 0 SEEN Discharge Plan Triage Chief Complaint: Nausea/Vomiting ED Provider: Codie Chu Dx/Rx/DC Orders Clinical Impression: Vomiting Instructions: ED Vomiting (Adult) Prescriptions: No Action cetirizine 10 mg tablet 10 mg PO DAILY norethindrone (contraceptive) 0.35 MG tablet 1 tab PO DAILY meclizine 25 mg tablet 25 mg PO TID PRN (Reason: vertigo) Qty: 20 0RF levothyroxine 88 mcg tablet 88 mcg PO DAILY Patient Comments: take 1 tablet by mouth once daily before breakfast sertraline 100 mg tablet 100 mg PO DAILY pantoprazole 20 mg tablet,delayed release (DR/EC) 20 mg PO DAILY PRN (Reason: abdominal discomfort) bupropion HCl 150 mg tablet extended release 24 hr 150 mg PO DAILY cholecalciferol (vitamin D3) [Vitamin D3] 25 mcg (1,000 unit) tablet 25 mcg PO DAILY hydroxyzine pamoate 50 mg capsule 50 mg PO DAILY PRN (Reason: anxiety) albuterol sulfate [Ventolin HFA] 90 mcg/actuation HFA aerosol inhaler 1 inh inhalation DAILY PRN PRN (Reason: wheezing) olopatadine [Pataday Twice Daily Relief] 0.1 % drops 1 drp EACH EYE BID Qty: 5 0RF Rx Instructions: separate doses by at least 6-8 hours Primary Care Provider: Marixa Taylor Referrals: Gregor Trujillo MD [Non-Staff] - 3-5 Days Print Language: Ukrainian Disposition Disposition: Home, Self Care
--- NOTE | 2024-06-06 08:21 | ED.RN ---
WHEN QUESTIONED ABOUT CURRENT TREATMENT OF HE MOTHER/GRANDMOTHER. PT ADMITS YES I HAVE BEEN VERY MEAN. PT AWARE THAT OFFER WILL BE MADE TO [facility] TO FILE A REPORT
[2024-06-06 08:24] LABS: Absolute Lymphocyte Count 4.61 X10^3/uL (0.83-4.51); Basophil# 0.09 X10^3/uL; Basophil% 0.8 % (0-1); Eosinophil# 0.17 X10^3/uL; Eosinophils% 1.6 % (0-5); Hematocrit 42.8 % (37-47); Hemoglobin 13.2 g/dL (12.0-15.0); Lymphocyte # 4.61 X10^3/ul (0.83-4.51); Lymphocyte % 42.9 % (19-41); Mean Corp Hgb Conc 30.8 g/dL (32-36); Mean Corpuscular Hgb 27.6 pg (27.0-32.0); Mean Corpuscular Volume 89.4 fL (81-99); Mean Platelet Vol. 10.5 fl (6.2-12.0); Monocyte# 0.82 X10^3/uL; Monocyte% 7.6 % (0-10); NRBC Flagged by Analyzer 0 % (0-5); Neutrophil # 5.02 X10^3/uL (2.7-7.7); Neutrophil % 46.8 % (47-70); Platelet Count 376 K/mm3 (150-450); RBC Distribution Width CV 13.7 % (11.6-14.6); RBC Distribution Width SD 44.8 fl (35.1-43.9); Red Blood Count 4.79 M/mm3 (4.2-5.4); White Blood Count 10.7 K/mm3 (4.4-11.0)
[2024-06-06] MEDS: Ondansetron 4 MG/2 ML Vial IV (08:37)
[2024-06-06] MEDS: 0.9% Normal Saline (1000mL) 1,000 ML 125 ML IV (08:37)
[2024-06-06 08:42] LABS: Internal QC Validated? YES +Cl - CLEAR BKGD; Pregnancy, Serum, hCG Quali. NEGATIVE Negative
[2024-06-06 08:43] LABS: AST(SGOT) 14 U/L (15-37); Alanine Aminotransfer ALT/SGPT 27 U/L (13-56); Albumin, Serum 3.7 g/dL (3.2-5.0); Alkaline Phosphatase 99 U/L (45-117); Anion Gap 5 (5-15); BUN 11 mg/dL (7-18); BUN/Creat Ratio 14.4 RATIO (10-20); Calcium,Total 9.7 mg/dL (8.5-10.1); Chloride 104 mmol/L (98-107); Creatinine, Serum 0.76 mg/dL (0.55-1.02); EST Glomerular Filtration Rate 99 mL/min (>60); Est Glom Filt Rate - Afr Amer 120 mL/min (>60); Estimated Creatinine Clearance 160.52 ml/min; Globulin 3.6 g/dL (2.2-4.2); Glucose 108 mg/dL (74-106); Potassium 3.9 mmol/L (3.5-5.1); Protein, Total 7.3 g/dL (6.4-8.2); Sodium Level 139 mmol/L (136-145)
[2024-06-06 08:46] LABS: Bacteria 0 SEEN /hpf (None Seen); Mucous, Urine 0 SEEN /hpf (<or=2+); Red Blood Cells-Urine 0 SEEN /hpf (0-5)
[2024-06-06 08:49] LABS: Color, Urine Yellow (Yellow); Glucose, Dipstick Normal (Normal); Ketone-Dipstick Negative (Negative); Leukocyte Esterase-Dipstick 500 /ul (Negative); Nitrite-Dipstick Negative (Negative); Occult Blood-Urine Negative /ul (Negative); Protein-Dipstick 15 mg/dl (Negative); Urine Bilirubin Dipstick Negative (Negative); Urine Clarity Clear (Clear); Urine Urobilinogen Normal (Normal)
[2024-06-06 08:57] LABS: Squamous Epithelial Cells - UA 0-5 SEEN /hpf (5-10); White Blood Cells 0-5 SEEN /hpf (0-5)
[2024-06-06 09:00] VITALS: BP 124/76; PULSE 64; RESP 16; TEMP 36.6; O2SAT 98
== END 2024-06-06 09:41 | disposition home or self-care (01) ==
PROVIDERS: Emergency Provider Emergency Medicine; PCP Family Medicine; Visit Provider Emergency Medicine
DX: R11.2 Nausea with vomiting, unspecified (principal); R05.9 Cough, unspecified; R10.10 Upper abdominal pain, unspecified; I10 Essential (primary) hypertension; F79 Unspecified intellectual disabilities; Z11.52 Encounter for screening for COVID-19; Z79.890 Hormone replacement therapy; Z79.899 Other long term (current) drug therapy
CPT/HCPCS: 80053; 81001; 84703; 85025; 87631; 96361; 96374; 99283; J7030; A4216; J2405

== ENCOUNTER 2024-06-25 18:42 | Emergency (ER) | payer MEDICAID, SELFPAY ==
[2024-06-25 18:42] VITALS: RESP 18
[2024-06-25 18:43] VITALS: BP 155/104; PULSE 84; RESP 18; TEMP 36; O2SAT 96; BMI 43.6
--- NOTE | 2024-06-25 19:00 | EDS_ITS ---
HPI HPI - Fall History of Present Illness Chief Complaint: Fall Narrative Narrative: 23-year-old female presents with her mother because of pain in her tailbone status post fall 3 days ago. Patient states that it was slippery on their porch and she fell onto her butt. She states I think I broke my tailbone. She denies hitting her head or loss of consciousness. She has left trapezial pain as well. Mother states that they called the nurse and were told to come to the emergency department. No fevers or chills, no loss of bowel or bladder. She has been taking Tylenol with mild relief of her pain. [facility] Medical History Fall Sprain of left index finger Contusion of left index finger Injury of left index finger Avulsion of head of fibula Osteochondral fracture COVID-19 Contact with and (suspected) exposure to other viral communicable diseases Acute otitis media, right Bee sting Contusion of right foot Sprain of right index finger 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 Sprain of right hand Right wrist sprain Nondisplaced fracture of proximal phalanx of left lesser toe(s), initial encounter for closed fracture Nondisplaced fracture of middle phalanx of left lesser toe(s), initial encounter for closed fracture Injury of left toe Madelung's deformity Undersocialized conduct disorder, aggressive type, moderate ADHD Oppositional defiant disorder Intellectual disability Thyroid disease Knee pain Severe headache Hay fever Fatigue 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 HTN (hypertension) Home Medications ?Medication ?Instructions ?Recorded ?Last Taken ?Type norethindrone (contraceptive) 0.35 1 tab PO DAILY hormones/ 01/21/19 04/22/19 History mg tablet control meclizine 25 mg tablet 25 mg PO TID PRN vertigo #20 tabs 01/31/21 Unknown Rx cetirizine 10 mg tablet 10 mg PO DAILY 01/01/22 Unknown History levothyroxine 88 mcg tablet 88 mcg PO DAILY 05/04/22 Unknown History sertraline 100 mg tablet 100 mg PO DAILY 10/19/22 Unknown History bupropion HCl 150 mg 24 hr tablet, 150 mg PO DAILY 12/04/23 Unknown History extended release cholecalciferol (vitamin D3) 25 25 mcg PO DAILY 12/04/23 Unknown History mcg (1,000 unit) tablet (Vitamin D3) hydroxyzine pamoate 50 mg capsule 50 mg PO DAILY PRN anxiety 12/04/23 Unknown History pantoprazole 20 mg tablet,delayed 20 mg PO DAILY PRN abdominal 12/04/23 Unknown History release discomfort olopatadine 0.1 % eye drops 1 drp EACH EYE BID #5 mL 01/27/24 Unknown Rx (Pataday Twice Daily Relief) Allergy/AdvReac Type Severity Reaction Status Date / Time amoxicillin (From Augmentin) Allergy Other Verified 06/25/24 18:46 amoxicillin trihydrate (From Allergy Other Verified 06/25/24 18:46 Augmentin) azithromycin Allergy Other Verified 06/25/24 18:46 clavulanic acid (From Allergy Other Verified 06/25/24 18:46 Augmentin) erythromycin base (From Allergy Unknown Verified 06/25/24 18:46 E-Mycin) potassium clavulanate (From Allergy Other Verified 06/25/24 18:46 Augmentin) ibuprofen AdvReac Nausea Verified 06/25/24 18:46 Surgical History History of ear surgery History of eye surgery Social History household members: other details: Lives with her grandmother Smoking Status: Never smoker alcohol intake: never substance use type: does not use ROS ROS ED ROS Narrative Constitutional: No fever, no chills. HEENT: No sore throat. No neck pain. No loss of vision. No rhinorrhea. Cardiovascular: No chest pain. No palpitations. No pedal edema. Respiratory: No cough, no shortness of breath. Abdominal: No abdominal pain. No nausea. No vomiting. Genitourinary: No dysuria. No hematuria. Musculoskeletal: Positive left trapezial pain. No arthralgias. Positive tailbone pain, worse with sitting. Neurologic: No headaches. No dizziness. No lightheadedness. No loss of bowel or bladder. Skin: No rash. No change in color. Psychiatric: No depression. No anxiety. EXAM Physical Exam Narrative Exam Narrative: GCS 15. ABCs intact. Regular rate and rhythm. Lungs clear to auscultation bilaterally. Abdomen soft nontender with normal active bowel sounds. Mild tenderness to palpation left trapezius, no clavicular pain, no crepitance. Full range of motion of left shoulder. Neurovascular intact distally with palpable radial pulse, left. Mild tenderness palpation sacrum, no crepitance. Neuro vastly intact bilateral lower extremities. Const Vital Signs: 06/25/24 18:42 06/25/24 18:43 Temperature 96.8 F L Temperature Source Temporal Pulse Rate 84 Respiratory Rate 18 18 Blood Pressure 155/104 H Blood Pressure Mean 121 Pulse Ox 96 Oxygen Delivery Method Room Air Room Air MDM MDM MDM Narrative Medical decision making narrative: Differential diagnosis includes but not limited to sacral fracture versus coccyx fracture. I do not feel she requires x-rays of the left shoulder and her pain and tenderness is more muscular and there is no bony tenderness. I have very low suspicion for dislocation of the left shoulder as well. Additionally, her injury has been remote. X-rays were obtained of the sacrum and coccyx and interpreted by myself independently. There is no evidence of a coccygeal or sacral fracture. Additionally, she told the RN that they were concerned about a left ankle fracture, but on my clinical examination there is no evidence of fracture and I have low concern for this. I did obtain x-rays of the left ankle as well and independently interpreted them and there is no evidence of acute fracture. I reviewed the radiology report of both the sacrum and coccyx, and the left ankle and it confirms my independent interpretations. At this point in time, patient will be discharged to follow-up with her primary care physician and continue Tylenol. Disposition is discharged home in stable condition. Discharge Plan Triage Chief Complaint: Fall ED Provider: Morgan Patel Dx/Rx/DC Orders Clinical Impression: Fall, Coccygeal contusion, Ankle pain, left Prescriptions: No Action cetirizine 10 mg tablet 10 mg PO DAILY norethindrone (contraceptive) 0.35 MG tablet 1 tab PO DAILY meclizine 25 mg tablet 25 mg PO TID PRN (Reason: vertigo) Qty: 20 0RF levothyroxine 88 mcg tablet 88 mcg PO DAILY Patient Comments: take 1 tablet by mouth once daily before breakfast sertraline 100 mg tablet 100 mg PO DAILY pantoprazole 20 mg tablet,delayed release (DR/EC) 20 mg PO DAILY PRN (Reason: abdominal discomfort) bupropion HCl 150 mg tablet extended release 24 hr 150 mg PO DAILY cholecalciferol (vitamin D3) [Vitamin D3] 25 mcg (1,000 unit) tablet 25 mcg PO DAILY hydroxyzine pamoate 50 mg capsule 50 mg PO DAILY PRN (Reason: anxiety) olopatadine [Pataday Twice Daily Relief] 0.1 % drops 1 drp EACH EYE BID Qty: 5 0RF Rx Instructions: separate doses by at least 6-8 hours Primary Care Provider: Marixa Taylor Referrals: Marixa Taylor, [Primary Care Provider] - 3-5 Days if not improving Print Language: Pashto Disposition Disposition: Home, Self Care
--- NOTE | 2024-06-25 19:04 | RAD_ITS ---
STUDY: X-RAY - LEFT ANKLE REASON FOR EXAM: Female, 23 years old. PAIN TECHNIQUE: 3 view(s) of the ankle. COMPARISON: None. FINDINGS: Normal visualized distal tibia and fibula. Normal medial and lateral malleoli. Normal tibiotalar articulation and ankle mortise. Normal visualized talus and calcaneus. The visualized subtalar, talonavicular, calcaneocuboid and tarsal articulations are normal. The soft tissue structures are unremarkable. RAD/Ankle min 3 Views IMPRESSION: Normal x-ray examination of the ankle. Electronically Signed: Ruddy Russell MD at 20:22 EDT ,
--- NOTE | 2024-06-25 19:10 | RAD_ITS ---
STUDY: X-RAY - SACRUM/COCCYX REASON FOR EXAM: Female, 23 years old. PAIN TECHNIQUE: 3 view(s) of the sacrum and coccyx were obtained. COMPARISON: None. FINDINGS: Normal bilateral sacroiliac joints. Normal visualized sacral ala and fused sacral bodies. Normal sacrococcygeal junction with a normal angulation. Normal coccygeal segments. The presacral soft tissue structures are unremarkable. RAD/Sacrum-Coccyx min 2 Views IMPRESSION: Normal x-rays of the sacrum and coccyx. Electronically Signed: Ruddy Russell MD at 20:23 EDT ,
[2024-06-25 21:13] VITALS: BP 125/66; PULSE 76; RESP 18; TEMP 36.9; O2SAT 98
== END 2024-06-25 21:20 | disposition home or self-care (01) ==
PROVIDERS: Emergency Provider Emergency Medicine; PCP Family Medicine; Referring Provider Emergency Medicine; Visit Provider Emergency Medicine
DX: S30.0XXA Contusion of lower back and pelvis, initial encounter (principal); M25.572 Pain in left ankle and joints of left foot; W01.0XXA Fall on same level from slipping, tripping and stumbling without subsequent striking against object, initial encounter; I10 Essential (primary) hypertension; Z79.899 Other long term (current) drug therapy
CPT/HCPCS: 72220; 73610; 99282

== ENCOUNTER 2024-07-03 18:30 | Emergency (ER) | payer MEDICAID, SELFPAY ==
[2024-07-03 18:30] VITALS: BP 137/89; PULSE 92; RESP 16; TEMP 35.8; O2SAT 98; BMI 46.8
== END 2024-07-03 21:00 | disposition left against medical advice (07) ==
LOC: ED 22:01
PROVIDERS: PCP Family Medicine
DX: R11.2 Nausea with vomiting, unspecified (principal); Z53.21 Procedure and treatment not carried out due to patient leaving prior to being seen by health care provider

== ENCOUNTER 2024-07-04 18:26 | Emergency (ER) | payer MEDICAID, SELFPAY ==
[2024-07-04 18:27] VITALS: BP 150/102; PULSE 67; RESP 16; TEMP 36.6; O2SAT 98; BMI 43.0
[2024-07-04] MEDS: Ondansetron ODT 4 MG Tablet PO (19:38)
[2024-07-04 19:55] LABS: Color, Urine Yellow (Yellow); Glucose, Dipstick 50 mg/dl (Normal); Ketone-Dipstick Negative (Negative); Leukocyte Esterase-Dipstick 500 /ul (Negative); Nitrite-Dipstick Negative (Negative); Occult Blood-Urine 250 /ul (Negative); Protein-Dipstick 30 mg/dl (Negative); Urine Bilirubin Dipstick Negative (Negative); Urine Clarity Turbid (Clear); Urine Urobilinogen 1 mg/dl (Normal)
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
[2024-07-04 20:02] LABS: Squamous Epithelial Cells - UA 10-25 SEEN /hpf (5-10)
[2024-07-04 20:03] LABS: Bacteria 3+ /hpf (None Seen); White Blood Cells 10-25 SEEN /hpf (0-5)
[2024-07-04 20:05] LABS: Mucous, Urine 1+ /hpf (<or=2+); Red Blood Cells-Urine 5-10 SEEN /hpf (0-5); Renal Epithelial Cells 0-5 SEEN /hpf (0-5)
[2024-07-04 20:22] LABS: Other Crystals-Urine 1+ /hpf (None Seen)
[2024-07-04 20:27] VITALS: BP 131/86; PULSE 86; RESP 18; O2SAT 96
[2024-07-04 21:01] LABS: Internal QC Validated? YES +Cl - CLEAR BKGD
[2024-07-04 21:02] LABS: Pregnancy, Urine Negative Negative
[2024-07-04 21:31] VITALS: BP 142/99; PULSE 85; RESP 18; TEMP 37.1; O2SAT 98
[2024-07-04] MEDS: Smz/Tmp Ds Tablet 1 TABLET PO (21:32)
== END 2024-07-04 21:42 | disposition home or self-care (01) ==
PROVIDERS: Emergency Provider Surgery; PCP Family Medicine; Visit Provider Surgery
DX: N39.0 Urinary tract infection, site not specified (principal); B34.9 Viral infection, unspecified; R10.84 Generalized abdominal pain; R11.2 Nausea with vomiting, unspecified; I10 Essential (primary) hypertension; E03.9 Hypothyroidism, unspecified; K21.9 Gastro-esophageal reflux disease without esophagitis; Z79.890 Hormone replacement therapy; Z79.899 Other long term (current) drug therapy
CPT/HCPCS: 81001; 81025; 87086; 99283

== ENCOUNTER 2024-09-04 13:50 | Emergency (ER) | payer MEDICAID, SELFPAY ==
[2024-09-04 13:51] VITALS: BP 140/99; PULSE 94; RESP 18; TEMP 37; O2SAT 97; BMI 43.2
[2024-09-04 15:09] LABS: Absolute Lymphocyte Count 3.78 X10^3/uL (0.83-4.51); Basophil# 0.09 X10^3/uL; Basophil% 0.8 % (0-1); Eosinophil# 0.13 X10^3/uL; Eosinophils% 1.1 % (0-5); Hematocrit 45.2 % (37-47); Hemoglobin 14.4 g/dL (12.0-15.0); Lymphocyte # 3.78 X10^3/ul (0.83-4.51); Lymphocyte % 31.8 % (19-41); Mean Corp Hgb Conc 31.9 g/dL (32-36); Mean Corpuscular Hgb 28.7 pg (27.0-32.0); Mean Platelet Vol. 10.7 fl (6.2-12.0); Monocyte# 0.84 X10^3/uL; Monocyte% 7.1 % (0-10); NRBC Flagged by Analyzer 0 % (0-5); Neutrophil # 7.02 X10^3/uL (2.7-7.7); Neutrophil % 58.9 % (47-70); Platelet Count 361 K/mm3 (150-450); RBC Distribution Width CV 13.5 % (11.6-14.6); RBC Distribution Width SD 44.9 fl (35.1-43.9); Red Blood Count 5.02 M/mm3 (4.2-5.4); White Blood Count 11.9 K/mm3 (4.4-11.0)
--- NOTE | 2024-09-04 15:20 | EX.ED.DYSGE1 ---
HPI History of Present Illness Chief Complaint: Complaint Informant: patient Narrative Narrative: Patient had right shoulder surgery couple weeks ago. She has been taking pain medication periodically for that and it is doing okay. She states her appetite has been poor and she has not been drinking much in the way of fluids. she states she has not been urinating very much and it is dark when she goes. Sometimes she gets lightheaded when she stands up. No acute abdominal pain. [facility] Medical History Fall Sprain of left index finger Contusion of left index finger Injury of left index finger Avulsion of head of fibula Osteochondral fracture COVID-19 Contact with and (suspected) exposure to other viral communicable diseases Acute otitis media, right Bee sting Contusion of right foot Sprain of right index finger 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 Sprain of right hand Right wrist sprain Nondisplaced fracture of proximal phalanx of left lesser toe(s), initial encounter for closed fracture Nondisplaced fracture of middle phalanx of left lesser toe(s), initial encounter for closed fracture Injury of left toe Madelung's deformity Undersocialized conduct disorder, aggressive type, moderate ADHD Oppositional defiant disorder Intellectual disability Thyroid disease Knee pain Severe headache Hay fever Fatigue 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 HTN (hypertension) Home Medications ?Medication ?Instructions ?Recorded ?Last Taken ?Type norethindrone (contraceptive) 0.35 1 tab PO DAILY hormones/ 01/21/19 04/22/19 History mg tablet control meclizine 25 mg tablet 25 mg PO TID PRN vertigo #20 tabs 01/31/21 Unknown Rx cetirizine 10 mg tablet 10 mg PO DAILY 01/01/22 Unknown History levothyroxine 88 mcg tablet 88 mcg PO DAILY 05/04/22 Unknown History sertraline 100 mg tablet 100 mg PO DAILY 10/19/22 Unknown History bupropion HCl 150 mg 24 hr tablet, 150 mg PO DAILY 12/04/23 Unknown History extended release cholecalciferol (vitamin D3) 25 25 mcg PO DAILY 12/04/23 Unknown History mcg (1,000 unit) tablet (Vitamin D3) hydroxyzine pamoate 50 mg capsule 50 mg PO DAILY PRN anxiety 12/04/23 Unknown History pantoprazole 20 mg tablet,delayed 20 mg PO DAILY PRN abdominal 12/04/23 Unknown History release discomfort lidocaine 5 % topical patch 1 patch topical DAILY 07/04/24 Unknown History olopatadine 0.1 % eye drops 1 drp EACH EYE BID PRN 07/04/24 Unknown History (Pataday Twice Daily Relief) ondansetron HCl 4 mg tablet 4 mg PO TID PRN nausea and 07/04/24 Unknown Rx vomiting 3 days #9 tabs sulfamethoxazole 800 1 tab PO BID 7 days #14 tabs 07/04/24 Unknown Rx mg-trimethoprim 160 mg tablet (Bactrim DS) Allergy/AdvReac Type Severity Reaction Status Date / Time amoxicillin (From Augmentin) Allergy Other Verified 09/04/24 13:51 amoxicillin trihydrate (From Allergy Other Verified 09/04/24 13:51 Augmentin) azithromycin Allergy Other Verified 09/04/24 13:51 clavulanic acid (From Allergy Other Verified 09/04/24 13:51 Augmentin) erythromycin base (From Allergy Unknown Verified 09/04/24 13:51 E-Mycin) potassium clavulanate (From Allergy Other Verified 09/04/24 13:51 Augmentin) ibuprofen AdvReac Nausea Verified 09/04/24 13:51 Surgical History History of ear surgery History of eye surgery Social History household members: other details: Lives with her grandmother Smoking Status: Never smoker alcohol intake: never substance use type: does not use ROS ROS ED Constitutional Constitutional ED: Reports malaise; Denies chills or fever(s) Eyes Eyes: Denies change in vision or diplopia ENT ENT ED: Denies rhinorrhea or sore throat Cardiovascular Cardiovascular: Denies chest pain or palpitations Respiratory/Chest Respiratory/Chest: Denies cough or dyspnea Gastrointestinal Gastrointestinal: Denies abdominal pain, diarrhea, nausea or vomiting Genitourinary Genitourinary ED: Reports decreased urination and drinking/eating less; Denies dysuria or hematuria Musculoskeletal Musculoskeletal: Reports extremity pain; Denies back pain or neck pain Integumentary Denies abscess or rash Neurologic Neurologic: Denies headache(s), paresthesias or weakness EXAM Physical Exam Const Vital Signs: 09/04/24 13:51 Temperature 98.6 F Temperature Source Oral Pulse Rate 94 Respiratory Rate 18 Blood Pressure 140/99 H Blood Pressure Mean 112 Pulse Ox 97 Oxygen Delivery Method Room Air Positive well nourished, well developed and obese General Appearance ED: well developed and NAD Nutritional Appearance: obese HEENT Reports dry mucous membranes normocephalic and atraumatic Mouth ED: Yes dry mucous membranes Mouth: dry mucous membranes Eyes PERRL and EOMs intact bilaterally Neck full ROM and supple Resp normal respiratory effort and clear to auscultation bilaterally Cardio regular rate, regular rhythm and no murmurs Rate: Negative for tachycardic GI non-tender and non-distended Auscultation: normoactive bowel sounds Palpation: soft Back/Spine no CVA tenderness General Back: other FROM Extremity normal to inspection Extremity Narrative: Right upper extremity in sling, position of comfort, neurovascular intact distally. No deformities. General Extremety ED: Negative for edema, pulses abnormal or tenderness General Extremity: Negative for edema or pulses abnormal Neuro oriented x3, CN's II-XII intact bilaterally and no sensory deficits noted Sensorium / Orientation: awake and alert Motor Exam: strength 5/5 throughout Psych mental status grossly normal Skin no rashes or lesions noted and no wounds MDM MDM MDM Narrative Medical decision making narrative: Sent some basic labs including chemistries to evaluate her renal function and hydration status as well as urinalysis, patient states she was unable to urinate so I ordered some Zofran and a p.o. fluid challenge and patient was drinking cola without any difficulty so the nurse held the Zofran. Given this and the national IV fluid shortage, I do not think she needs IV fluids. After reviewing her normal chemistry panel, this confirms that she is not dehydrated or in need of IV fluids. She was able to eventually produce urine for us and it does not appear infected either. Stable for discharge home. Lab Data Attestation: I reviewed the patient's lab results. Labs: Laboratory Results - last 24 hr 09/04/24 09/04/24 15:00 16:28 WBC 11.9 H RBC 5.02 Hgb 14.4 Hct 45.2 MCV 90.0 MCH 28.7 MCHC 31.9 L RDW Std Deviation 44.9 H RDW Coeff of Alcon 13.5 Plt Count 361 MPV 10.7 Immature Gran % (Auto) 0.300 Neut % (Auto) 58.9 Lymph % (Auto) 31.8 [place] % (Auto) 7.1 Eos % (Auto) 1.1 Baso % (Auto) 0.8 Absolute Neuts (auto) 7.0 Absolute Lymphs (auto) 3.78 Nucleated RBC % 0 Sodium 138 Potassium 3.8 Chloride 108 H Carbon Dioxide 28.0 Anion Gap 3 L BUN 7 Creatinine 0.60 Estim Creat Clear Calc 200.37 Est GFR (MDRD) Af Amer 160 Est GFR (MDRD) Non-Af 132 BUN/Creatinine Ratio 11.8 Glucose 101 Calcium 9.9 Urine Color Yellow Urine Clarity Cloudy Urine pH 6.0 Ur Specific [place] 1.020 Urine Protein 15 H Urine Glucose (UA) Normal Urine Ketones Negative Urine Occult Blood Negative Urine Nitrite Negative Urine Bilirubin Negative Urine Urobilinogen Normal Ur Leukocyte Esterase 25 H Urine RBC 0-5 SEEN Urine WBC 0-5 SEEN Ur Squamous Epith Cells 10-25 SEEN Urine Bacteria 1+ Urine Mucus 1+ Urine Test Negative Discharge Plan Triage Chief Complaint: Complaint ED Provider: Reji Henderson Dx/Rx/DC Orders Clinical Impression: Mild dehydration Instructions: Surg Dc Prescriptions: No Action cetirizine 10 mg tablet 10 mg PO DAILY norethindrone (contraceptive) 0.35 MG tablet 1 tab PO DAILY meclizine 25 mg tablet 25 mg PO TID PRN (Reason: vertigo) Qty: 20 0RF levothyroxine 88 mcg tablet 88 mcg PO DAILY Patient Comments: take 1 tablet by mouth once daily before breakfast sertraline 100 mg tablet 100 mg PO DAILY pantoprazole 20 mg tablet,delayed release (DR/EC) 20 mg PO DAILY PRN (Reason: abdominal discomfort) bupropion HCl 150 mg tablet extended release 24 hr 150 mg PO DAILY cholecalciferol (vitamin D3) [Vitamin D3] 25 mcg (1,000 unit) tablet 25 mcg PO DAILY hydroxyzine pamoate 50 mg capsule 50 mg PO DAILY PRN (Reason: anxiety) olopatadine [Pataday Twice Daily Relief] 0.1 % drops 1 drp EACH EYE BID PRN Rx Instructions: separate doses by at least 6-8 hours lidocaine 5 % adhesive patch,medicated 1 patch topical DAILY ondansetron HCl 4 mg tablet 4 mg PO TID PRN (Reason: nausea and vomiting) 3 Days Qty: 9 0RF sulfamethoxazole-trimethoprim [Bactrim DS] 800-160 mg tablet 1 tab PO BID 7 Days Qty: 14 0RF Primary Care Provider: Marixa Taylor Referrals: Marixa Taylor, DO [Primary Care Provider] - As Needed Activity Restrictions/Additional Instructions: Push fluids even if you are not hungry. Print Language: Lithuanian Disposition Disposition: Home, Self Care
[2024-09-04 15:25] LABS: Anion Gap 3 (5-15); BUN 7 mg/dL (7-18); BUN/Creat Ratio 11.8 RATIO (10-20); Calcium,Total 9.9 mg/dL (8.5-10.1); Chloride 108 mmol/L (98-107); EST Glomerular Filtration Rate 132 mL/min (>60); Est Glom Filt Rate - Afr Amer 160 mL/min (>60); Estimated Creatinine Clearance 200.37 ml/min; Glucose 101 mg/dL (74-106); Potassium 3.8 mmol/L (3.5-5.1); Sodium Level 138 mmol/L (136-145)
[2024-09-04 16:49] LABS: Color, Urine Yellow (Yellow); Glucose, Dipstick Normal (Normal); Ketone-Dipstick Negative (Negative); Leukocyte Esterase-Dipstick 25 /ul (Negative); Nitrite-Dipstick Negative (Negative); Occult Blood-Urine Negative /ul (Negative); Protein-Dipstick 15 mg/dl (Negative); Urine Bilirubin Dipstick Negative (Negative); Urine Clarity Cloudy (Clear); Urine Urobilinogen Normal (Normal)
[2024-09-04 16:56] LABS: Bacteria 1+ /hpf (None Seen); Mucous, Urine 1+ /hpf (<or=2+); Red Blood Cells-Urine 0-5 SEEN /hpf (0-5); Squamous Epithelial Cells - UA 10-25 SEEN /hpf (5-10); White Blood Cells 0-5 SEEN /hpf (0-5)
[2024-09-04 16:57] LABS: Internal QC Validated? YES +Cl - CLEAR BKGD; Pregnancy, Urine Negative Negative
[2024-09-04 17:18] VITALS: BP 137/78
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
== END 2024-09-04 17:19 | disposition home or self-care (01) ==
PROVIDERS: Emergency Provider Emergency Medicine; PCP Family Medicine; Visit Provider Emergency Medicine
DX: E86.0 Dehydration (principal); I10 Essential (primary) hypertension; R42 Dizziness and giddiness; Z79.890 Hormone replacement therapy; Z79.899 Other long term (current) drug therapy
CPT/HCPCS: 80048; 81001; 81025; 85025; 99283; A4216

== ENCOUNTER 2024-09-10 14:29 | Emergency (ER) | payer MEDICAID, SELFPAY ==
[2024-09-10 14:31] VITALS: BP 151/105; PULSE 108; RESP 16; TEMP 36.7; O2SAT 98; BMI 43.9
--- NOTE | 2024-09-10 14:39 | EKG12_ITS ---
Test Reason : CP Blood Pressure : */* mmHG Vent. Rate : 86 BPM Atrial Rate : 86 BPM P-R Int : 168 ms QRS Dur : 74 ms QT Int : 328 ms P-R-T Axes : 39 23 23 degrees QTcB Int : 392 ms Normal sinus rhythm Nonspecific T wave abnormality Abnormal ECG Confirmed by YVES ECHEVARRIA, ARIEL ([id number]), editor farm journal HARRY OSBORN ([id number]) on 09/13/2024 6:27:39 AM Referred By: Confirmed By: ARIEL MARINELLI MD
--- NOTE | 2024-09-10 14:40 | ED.VIS.CHEST ---
HPI History of Present Illness Chief Complaint: Chest Other Narrative Narrative: 23-year-old female past medical history of asthma presents with left midsternal chest pain and chest tightness that she has had since yesterday evening. She states she was helping her mom lift a heavy tote with her left arm as her right arm is in a sling. She started feeling chest tightness as well and thought maybe she was having an asthma problem. It continued into today. She denies any fevers or chills, no cough, no exacerbating or alleviating factors except for maybe some pain that is worse with movement of her left arm. She took Tylenol without relief. [facility] Medical History Fall Sprain of left index finger Contusion of left index finger Injury of left index finger Avulsion of head of fibula Osteochondral fracture COVID-19 Contact with and (suspected) exposure to other viral communicable diseases Acute otitis media, right Bee sting Contusion of right foot Sprain of right index finger 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 Sprain of right hand Right wrist sprain Nondisplaced fracture of proximal phalanx of left lesser toe(s), initial encounter for closed fracture Nondisplaced fracture of middle phalanx of left lesser toe(s), initial encounter for closed fracture Injury of left toe Madelung's deformity Undersocialized conduct disorder, aggressive type, moderate ADHD Oppositional defiant disorder Intellectual disability Thyroid disease Knee pain Severe headache Hay fever Fatigue 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 HTN (hypertension) Home Medications ?Medication ?Instructions ?Recorded ?Last Taken ?Type norethindrone (contraceptive) 0.35 1 tab PO DAILY hormones/ 01/21/19 04/22/19 History mg tablet control meclizine 25 mg tablet 25 mg PO TID PRN vertigo #20 tabs 01/31/21 Unknown Rx cetirizine 10 mg tablet 10 mg PO DAILY 01/01/22 Unknown History levothyroxine 88 mcg tablet 88 mcg PO DAILY 05/04/22 Unknown History sertraline 100 mg tablet 100 mg PO DAILY 10/19/22 Unknown History bupropion HCl 150 mg 24 hr tablet, 150 mg PO DAILY 12/04/23 Unknown History extended release cholecalciferol (vitamin D3) 25 25 mcg PO DAILY 12/04/23 Unknown History mcg (1,000 unit) tablet (Vitamin D3) hydroxyzine pamoate 50 mg capsule 50 mg PO DAILY PRN anxiety 12/04/23 Unknown History pantoprazole 20 mg tablet,delayed 20 mg PO DAILY PRN abdominal 12/04/23 Unknown History release discomfort lidocaine 5 % topical patch 1 patch topical DAILY 07/04/24 Unknown History olopatadine 0.1 % eye drops 1 drp EACH EYE BID PRN 07/04/24 Unknown History (Pataday Twice Daily Relief) ondansetron HCl 4 mg tablet 4 mg PO TID PRN nausea and 07/04/24 Unknown Rx vomiting 3 days #9 tabs sulfamethoxazole 800 1 tab PO BID 7 days #14 tabs 07/04/24 Unknown Rx mg-trimethoprim 160 mg tablet (Bactrim DS) Allergy/AdvReac Type Severity Reaction Status Date / Time amoxicillin (From Augmentin) Allergy Other Verified 09/10/24 14:32 amoxicillin trihydrate (From Allergy Other Verified 09/10/24 14:32 Augmentin) azithromycin Allergy Other Verified 09/10/24 14:32 clavulanic acid (From Allergy Other Verified 09/10/24 14:32 Augmentin) erythromycin base (From Allergy Unknown Verified 09/10/24 14:32 E-Mycin) potassium clavulanate (From Allergy Other Verified 09/10/24 14:32 Augmentin) ibuprofen AdvReac Nausea Verified 09/10/24 14:32 Surgical History History of ear surgery History of eye surgery Social History household members: other details: Lives with her grandmother Smoking Status: Never smoker alcohol intake: never substance use type: does not use ROS ROS ED ROS Narrative Constitutional: No fever, no chills. HEENT: No sore throat. No neck pain. No loss of vision. No rhinorrhea. Cardiovascular: Positive chest tightness/midsternal chest pain. Sometimes worse with movement of arm and torso. No palpitations. No pedal edema. Respiratory: Occasional cough, no shortness of breath. Abdominal: No abdominal pain. No nausea. No vomiting. EXAM Physical Exam Narrative Exam Narrative: Afebrile. Vital signs noted. Right arm in sling. Nontoxic-appearing. Cardiovascular examination reveals intermittent tachycardia but otherwise regular rate and rhythm. Lungs are clear to auscultation bilaterally. Abdomen soft with positive bowel sounds. Mild tenderness to palpation left parasternal border. No crepitance. Const Vital Signs: 09/10/24 14:31 09/10/24 15:03 Temperature 98.1 F Temperature Source Oral Pulse Rate 108 H Respiratory Rate 16 Respiratory Effort Normal Non-Labored Blood Pressure 151/105 H Blood Pressure Mean 120 Pulse Ox 98 Oxygen Delivery Method Room Air MDM MDM MDM Narrative Medical decision making narrative: Differential diagnosis includes but not limited to costochondritis versus other musculoskeletal chest pain versus ACS versus pneumonia versus asthma exacerbation versus pneumothorax. History and physical does not support pneumonia or ACS, or pneumothorax. Pulse ox is 98% on room air. She is not febrile here. EKG and chest x-ray will be obtained. Her pain is reproducible as well. She states that hurts when she coughs as well. Hence, I think it is probably more musculoskeletal chest wall pain/costochondritis. EKG obtained and interpreted by myself independently as normal sinus rhythm at 86 bpm without ectopy or acute ST changes. No STEMI. Chest x-ray interpreted by myself independently shows no evidence of pneumothorax, sternal fracture, or pneumonia. I reviewed the radiology report which confirms my independent interpretation. Patient complained of nausea, although nothing was mentioned in triage. She was given 1 Zofran tablet and an ice pack for comfort. She will continue her [id number] Tylenol as needed as she states she is allergic to ibuprofen. At this point in time, I feel she probably has more of a costochondritis. I feel she can be discharged to follow-up. Disposition is discharged home in stable condition. History & Record Review Discussion w/independent historian: Patient Radiography Diagnostic Testing: Clinical Impression(s) from Imaging Studies Chest X-Ray 09/10/24 14:53 IMPRESSION: No radiographic evidence of acute cardiopulmonary disease. Electronically Signed: Ganesh Meyers DO at 15:05 EST , Discharge Plan Triage Chief Complaint: Chest Other ED Provider: Morgan Patel Dx/Rx/DC Orders Clinical Impression: Chest wall pain, Costochondritis Instructions: ED Chest Wall Pain, Costochondritis, ED Strain Chest Wall Prescriptions: No Action cetirizine 10 mg tablet 10 mg PO DAILY norethindrone (contraceptive) 0.35 MG tablet 1 tab PO DAILY meclizine 25 mg tablet 25 mg PO TID PRN (Reason: vertigo) Qty: 20 0RF levothyroxine 88 mcg tablet 88 mcg PO DAILY Patient Comments: take 1 tablet by mouth once daily before breakfast sertraline 100 mg tablet 100 mg PO DAILY pantoprazole 20 mg tablet,delayed release (DR/EC) 20 mg PO DAILY PRN (Reason: abdominal discomfort) bupropion HCl 150 mg tablet extended release 24 hr 150 mg PO DAILY cholecalciferol (vitamin D3) [Vitamin D3] 25 mcg (1,000 unit) tablet 25 mcg PO DAILY hydroxyzine pamoate 50 mg capsule 50 mg PO DAILY PRN (Reason: anxiety) olopatadine [Pataday Twice Daily Relief] 0.1 % drops 1 drp EACH EYE BID PRN Rx Instructions: separate doses by at least 6-8 hours lidocaine 5 % adhesive patch,medicated 1 patch topical DAILY ondansetron HCl 4 mg tablet 4 mg PO TID PRN (Reason: nausea and vomiting) 3 Days Qty: 9 0RF sulfamethoxazole-trimethoprim [Bactrim DS] 800-160 mg tablet 1 tab PO BID 7 Days Qty: 14 0RF Primary Care Provider: Marixa Taylor Referrals: Marixa Taylor, DO [Primary Care Provider] - 3-5 Days if not improving Activity Restrictions/Additional Instructions: Continue your Tylenol as needed for pain. Follow-up with your primary care provider. Print Language: Albanian Disposition Disposition: Home, Self Care
--- NOTE | 2024-09-10 14:53 | RAD_ITS ---
EXAM: XR CHEST, 2 VIEWS CLINICAL INDICATION: chest pain TECHNIQUE: Frontal and lateral views of the chest. COMPARISON: 10/12/2023 FINDINGS: LUNGS AND PLEURAL SPACES: No significant abnormality. No consolidation or edema. No pneumothorax. No effusion. HEART: No significant abnormality. Cardiac silhouette not enlarged. MEDIASTINUM: Central airways and mediastinal contour are unremarkable. BONES/JOINTS: No significant abnormality. No acute fracture. SOFT TISSUES: No significant abnormality. RAD/Chest PA and Lateral IMPRESSION: No radiographic evidence of acute cardiopulmonary disease. Electronically Signed: Ganesh Meyers DO at 15:05 EST ,
[2024-09-10] MEDS: Ondansetron ODT 4 MG Tablet PO (15:18)
[2024-09-10 15:26] VITALS: BP 146/78; PULSE 95; RESP 16; O2SAT 99
== END 2024-09-10 15:27 | disposition home or self-care (01) ==
PROVIDERS: Emergency Provider Emergency Medicine; PCP Family Medicine; Visit Provider Emergency Medicine
DX: R07.89 Other chest pain (principal); J45.909 Unspecified asthma, uncomplicated; M94.0 Chondrocostal junction syndrome [Tietze]; R07.2 Precordial pain; I10 Essential (primary) hypertension
CPT/HCPCS: 71046; 93005; 99282

== ENCOUNTER 2024-10-04 03:16 | Emergency (ER) | payer MEDICAID, SELFPAY ==
[2024-10-04 03:16] VITALS: BP 149/96; PULSE 82; RESP 18; TEMP 36.6; O2SAT 95; BMI 44.6
--- NOTE | 2024-10-04 03:34 | RAD_ITS ---
INDICATION: fall, pain EXAMINATION/TECHNIQUE: X-RAY - RIGHT XR Shoulder Min 2 Views COMPARISON: 04/23/2024. FINDINGS: SOFT TISSUES: Unremarkable. BONES/JOINTS: No fracture or dislocation. No significant degenerative changes. No erosive changes. RAD/Shoulder min 2 Views IMPRESSION: No fracture or dislocation. Electronically Signed: Victor Hugo Phillip DO at 5:08 EST ,
--- NOTE | 2024-10-04 03:45 | EDS_ITS ---
HPI History of Present Illness Chief Complaint: Fall Narrative Narrative: Patient is a 23-year-old female past medical history of oppositional defiant disorder, ADHD, intellectual disability, hypertension who presents to the [facility] with a chief complaint of right shoulder pain. Patient states that earlier this evening around 11:30 PM on 10/03/2024 she was attempting to move a piece of furniture and notes that she fell backwards and hit her shoulder into the wall. Patient notes that she had surgery on her shoulder several weeks ago and feels that she may have messed something up. States that she did not taken thing for pain prior to arrival. Patient rates her pain a 5 out of 10. 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 Sprain of right hand Right wrist sprain Nondisplaced fracture of proximal phalanx of left lesser toe(s), initial encounter for closed fracture Nondisplaced fracture of middle phalanx of left lesser toe(s), initial encounter for closed fracture Injury of left toe Madelung's deformity Undersocialized conduct disorder, aggressive type, moderate ADHD Oppositional defiant disorder Intellectual disability Thyroid disease Knee pain Severe headache Hay fever Fatigue 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 HTN (hypertension) Home Medications ?Medication ?Instructions ?Recorded ?Last Taken ?Type norethindrone (contraceptive) 0.35 1 tab PO DAILY hormones/ 01/21/19 04/22/19 History mg tablet control meclizine 25 mg tablet 25 mg PO TID PRN vertigo #20 tabs 01/31/21 Unknown Rx cetirizine 10 mg tablet 10 mg PO DAILY 01/01/22 Unknown History levothyroxine 88 mcg tablet 88 mcg PO DAILY 05/04/22 Unknown History sertraline 100 mg tablet 100 mg PO DAILY 10/19/22 Unknown History bupropion HCl 150 mg 24 hr tablet, 150 mg PO DAILY 12/04/23 Unknown History extended release cholecalciferol (vitamin D3) 25 25 mcg PO DAILY 12/04/23 Unknown History mcg (1,000 unit) tablet (Vitamin D3) hydroxyzine pamoate 50 mg capsule 50 mg PO DAILY PRN anxiety 12/04/23 Unknown History pantoprazole 20 mg tablet,delayed 20 mg PO DAILY PRN abdominal 12/04/23 Unknown History release discomfort lidocaine 5 % topical patch 1 patch topical DAILY 07/04/24 Unknown History olopatadine 0.1 % eye drops 1 drp EACH EYE BID PRN 07/04/24 Unknown History (Pataday Twice Daily Relief) ondansetron HCl 4 mg tablet 4 mg PO TID PRN nausea and 07/04/24 Unknown Rx vomiting 3 days #9 tabs sulfamethoxazole 800 1 tab PO BID 7 days #14 tabs 07/04/24 Unknown Rx mg-trimethoprim 160 mg tablet (Bactrim DS) Allergy/AdvReac Type Severity Reaction Status Date / Time amoxicillin (From Augmentin) Allergy Other Verified 09/10/24 14:32 amoxicillin trihydrate (From Allergy Other Verified 09/10/24 14:32 Augmentin) azithromycin Allergy Other Verified 09/10/24 14:32 clavulanic acid (From Allergy Other Verified 09/10/24 14:32 Augmentin) erythromycin base (From Allergy Unknown Verified 09/10/24 14:32 E-Mycin) potassium clavulanate (From Allergy Other Verified 09/10/24 14:32 Augmentin) ibuprofen AdvReac Nausea Verified 09/10/24 14:32 Surgical History History of ear surgery History of eye surgery Social History household members: other details: Lives with her grandmother Smoking Status: Never smoker alcohol intake: never substance use type: does not use ROS ROS ED ROS Narrative Constitutional: Denies any headache, lightness, dizziness, fevers, chills Eyes: Denies change in vision double vision blurry vision Cardiovascular: Denies chest pain or palpitations Respiratory: Denies coughing wheezing shortness of breath Abdomen: Denies abdominal pain nausea vomit diarrhea : Denies any urinary symptoms Neurological: Denies numbness, weakness, tingling Musculoskeletal: Complains of right shoulder pain Skin: Denies any rashes or lesions EXAM Physical Exam Narrative Exam Narrative: General: Patient lying in bed rest comfortably did not appear to be acute distress Head: Atraumatic, normocephalic Eyes: PERRL bilaterally, EOMI bilaterally, no conjunctival injection noted Neck: Soft, supple, trachea midline, patient has full range of motion of her neck no pain elicited, no tenderness palpation midline of the cervical spine Cardiovascular: Regular rate and rhythm no murmurs gallops rubs noted Respiratory: Clear to auscultation bilaterally Abdomen: No tenderness palpation Musculoskeletal: Patient has some discomfort with range of motion of the right shoulder, although bony prominences palpated and joints taken through full range of motion no pain elicited Extremities: +5/5 strength noted in the bilateral upper and lower extremities, radial pulses +2/4 in the bilateral upper extremities Neurological: Patient following commands knew that she was at [facility] years 2023 sensation grossly intact in the median, ulnar, radial nerve and axillary nerve distributions bilaterally Skin: Warm, dry, intact, surgical incisions are well-healed in her right shoulder no concern for infection Const Vital Signs: 10/04/24 03:16 10/04/24 03:18 Temperature 98 F Temperature Source Oral Pulse Rate 82 Respiratory Rate 18 Respiratory Effort Normal Non-Labored Blood Pressure 149/96 H Blood Pressure Mean 113 Pulse Ox 95 Oxygen Delivery Method Room Air MDM MDM MDM Narrative Medical decision making narrative: Patient is a 23-year-old female who presented to the emergency department chief complaint of right shoulder pain after fall. On the differential diagnose includes but not limited to proximal humerus fracture,, musculoskeletal strain, clavicle fracture, AC joint separation. Once workup is obtained reviewed she will be reevaluated patient be given a gram of Tylenol. Patient's x-ray of her shoulder reviewed by myself and by radiology showed no acute fracture or dislocation. Did discuss results with the patient and she would like to go home at this point time. She was advised to follow-up with her surgeon in the outpatient setting. She is encouraged return with worsening symptoms and concerns. She is agreeable to plan all question concerns answered at bedside. Radiography Diagnostic Testing: Clinical Impression(s) from Imaging Studies Shoulder X-Ray 10/04/24 03:34 IMPRESSION: No fracture or dislocation. Electronically Signed: Victor Hugo Phillip DO at 5:08 EST , Discharge Plan Triage Chief Complaint: Fall ED Provider: Ata Briones Dx/Rx/DC Orders Clinical Impression: Acute pain of right shoulder Prescriptions: No Action cetirizine 10 mg tablet 10 mg PO DAILY norethindrone (contraceptive) 0.35 MG tablet 1 tab PO DAILY meclizine 25 mg tablet 25 mg PO TID PRN (Reason: vertigo) Qty: 20 0RF levothyroxine 88 mcg tablet 88 mcg PO DAILY Patient Comments: take 1 tablet by mouth once daily before breakfast sertraline 100 mg tablet 100 mg PO DAILY pantoprazole 20 mg tablet,delayed release (DR/EC) 20 mg PO DAILY PRN (Reason: abdominal discomfort) bupropion HCl 150 mg tablet extended release 24 hr 150 mg PO DAILY cholecalciferol (vitamin D3) [Vitamin D3] 25 mcg (1,000 unit) tablet 25 mcg PO DAILY hydroxyzine pamoate 50 mg capsule 50 mg PO DAILY PRN (Reason: anxiety) olopatadine [Pataday Twice Daily Relief] 0.1 % drops 1 drp EACH EYE BID PRN Rx Instructions: separate doses by at least 6-8 hours lidocaine 5 % adhesive patch,medicated 1 patch topical DAILY ondansetron HCl 4 mg tablet 4 mg PO TID PRN (Reason: nausea and vomiting) 3 Days Qty: 9 0RF sulfamethoxazole-trimethoprim [Bactrim DS] 800-160 mg tablet 1 tab PO BID 7 Days Qty: 14 0RF Primary Care Provider: Marixa Taylor Referrals: Marixa Taylor, DO [Primary Care Provider] - Activity Restrictions/Additional Instructions: Follow-up with your primary care physician and your surgeon in the outpatient setting. Your x-rays were normal here nothing was broken. Return with worsening symptoms or concerns. Take ibuprofen and Tylenol for pain control. Print Language: Moroccan Disposition Disposition: Home, Self Care
[2024-10-04] MEDS: Acetaminophen 500 MG Tablet 1000 MG PO (04:13)
[2024-10-04 05:33] VITALS: BP 106/62; PULSE 78; RESP 16; TEMP 37.1; O2SAT 99
== END 2024-10-04 05:34 | disposition home or self-care (01) ==
PROVIDERS: Emergency Provider Emergency Medicine; PCP Family Medicine; Visit Provider Emergency Medicine
DX: M25.511 Pain in right shoulder (principal); I10 Essential (primary) hypertension; Z79.890 Hormone replacement therapy; Z79.899 Other long term (current) drug therapy; Z98.890 Other specified postprocedural states
CPT/HCPCS: 73030; 99282

== ENCOUNTER 2024-10-30 23:59 | Emergency (ER) | payer MEDICARE, MEDICAID, SELFPAY ==
[2024-10-31] VITALS: BP 173/108; PULSE 135; RESP 18; TEMP 36.6; O2SAT 97; BMI 41.0
--- NOTE | 2024-10-31 00:07 | RAD_ITS ---
PROCEDURE: CHEST PA AND LATERAL REASON FOR EXAM: Cough. Congestion. TECHNIQUE: Frontal and lateral views of the chest. COMPARISON: Chest x-ray from 09/10/2024. FINDINGS: Cardiac size and pulmonary vasculature are within normal limits. No consolidation, pleural effusion, or pneumothorax is present. RAD/Chest PA and Lateral IMPRESSION: No acute cardiopulmonary process. [facility]
[2024-10-31] MEDS: Ondansetron ODT 4 MG Tablet PO (01:21)
[2024-10-31] MEDS: Acetaminophen 500 MG Tablet 1000 MG PO (01:21)
[2024-10-31] MEDS: dexAMETHasone 10 MG/ML Vial PO.IVFORM (01:22)
--- NOTE | 2024-10-31 01:38 | EX.ED.DYSGE1 ---
HPI History of Present Illness Chief Complaint: Cold Sx Informant: patient and EMS Narrative Narrative: Patient is a 23-year-old female with past medical history of ADHD and hypertension. She states that she has had roughly 1 day of generalized fatigue and muscle aches with congestion cough sore throat headache. She reports similar sick contacts at home. She reports that she has concern for an infection based on her symptoms and therefore comes in for evaluation [facility] Medical History Fall Sprain of left index finger Contusion of left index finger Injury of left index finger Avulsion of head of fibula Osteochondral fracture COVID-19 Contact with and (suspected) exposure to other viral communicable diseases Acute otitis media, right Bee sting Contusion of right foot Sprain of right index finger 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 Sprain of right hand Right wrist sprain Nondisplaced fracture of proximal phalanx of left lesser toe(s), initial encounter for closed fracture Nondisplaced fracture of middle phalanx of left lesser toe(s), initial encounter for closed fracture Injury of left toe Madelung's deformity Undersocialized conduct disorder, aggressive type, moderate ADHD Oppositional defiant disorder Intellectual disability Thyroid disease Knee pain Severe headache Hay fever Fatigue 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 HTN (hypertension) Home Medications ?Medication ?Instructions ?Recorded ?Last Taken ?Type norethindrone (contraceptive) 0.35 1 tab PO DAILY hormones/ 01/21/19 04/22/19 History mg tablet control meclizine 25 mg tablet 25 mg PO TID PRN vertigo #20 tabs 01/31/21 Unknown Rx cetirizine 10 mg tablet 10 mg PO DAILY 01/01/22 Unknown History levothyroxine 88 mcg tablet 88 mcg PO DAILY 05/04/22 Unknown History sertraline 100 mg tablet 100 mg PO DAILY 10/19/22 Unknown History bupropion HCl 150 mg 24 hr tablet, 150 mg PO DAILY 12/04/23 Unknown History extended release cholecalciferol (vitamin D3) 25 25 mcg PO DAILY 12/04/23 Unknown History mcg (1,000 unit) tablet (Vitamin D3) hydroxyzine pamoate 50 mg capsule 50 mg PO DAILY PRN anxiety 12/04/23 Unknown History pantoprazole 20 mg tablet,delayed 20 mg PO DAILY PRN abdominal 12/04/23 Unknown History release discomfort lidocaine 5 % topical patch 1 patch topical DAILY 07/04/24 Unknown History olopatadine 0.1 % eye drops 1 drp EACH EYE BID PRN 07/04/24 Unknown History (Pataday Twice Daily Relief) ondansetron HCl 4 mg tablet 4 mg PO TID PRN nausea and 07/04/24 Unknown Rx vomiting 3 days #9 tabs sulfamethoxazole 800 1 tab PO BID 7 days #14 tabs 07/04/24 Unknown Rx mg-trimethoprim 160 mg tablet (Bactrim DS) codeine 10 mg-guaifenesin 100 mg/5 10 ml PO 4X/DAY PRN flu symptoms 7 10/31/24 Unknown Rx mL oral liquid (Guaifenesin AC) days #280 mL ondansetron 4 mg disintegrating 4 mg PO TID PRN nausea and 10/31/24 Unknown Rx tablet vomiting #21 tabs oseltamivir 75 mg capsule (Tamiflu) 75 mg PO BID 5 days #10 caps 10/31/24 Unknown Rx prednisone 20 mg tablet 40 mg (2 x 20 mg) PO DAILY 5 days 10/31/24 Unknown Rx #10 tabs Allergy/AdvReac Type Severity Reaction Status Date / Time amoxicillin (From Augmentin) Allergy Other Verified 09/10/24 14:32 amoxicillin trihydrate (From Allergy Other Verified 09/10/24 14:32 Augmentin) azithromycin Allergy Other Verified 09/10/24 14:32 clavulanic acid (From Allergy Other Verified 09/10/24 14:32 Augmentin) erythromycin base (From Allergy Unknown Verified 09/10/24 14:32 E-Mycin) potassium clavulanate (From Allergy Other Verified 09/10/24 14:32 Augmentin) ibuprofen AdvReac Nausea Verified 09/10/24 14:32 Surgical History History of ear surgery History of eye surgery Social History household members: other details: Lives with her grandmother Smoking Status: Never smoker alcohol intake: never substance use type: does not use ROS ROS ED Constitutional Constitutional ED: Reports chills and fever(s) Eyes Eyes: Denies change in vision ENT ENT ED: Reports rhinorrhea and sore throat Respiratory/Chest Respiratory/Chest: Reports cough and dyspnea Gastrointestinal Gastrointestinal: Reports nausea; Denies abdominal pain or vomiting Genitourinary Genitourinary ED: Denies dysuria Musculoskeletal Musculoskeletal: Reports myalgias Integumentary Denies rash Neurologic Neurologic: Reports headache(s) Allergic/Immunologic Allergic/Immunologic ED: Denies mouth swelling or tongue swelling EXAM Physical Exam Const Vital Signs: 10/31/24 00:00 10/31/24 00:00 10/31/24 02:37 Temperature 98 F 98.0 F Temperature Source Oral Pulse Rate 135 H 78 Respiratory Rate 18 18 Respiratory Effort Normal Non-Labored Respiratory Pattern Normal Blood Pressure 173/108 H 163/90 H Blood Pressure Mean 129 114 Pulse Ox 97 99 Oxygen Delivery Method Room Air Positive well nourished, well developed and obese General Appearance ED: well developed; Negative for pallor Nutritional Appearance: obese HEENT HEENT Narrative: Nasal mucosa is hyperemic and boggy There is cobblestoning noted in the posterior pharynx consistent with sinus drainage without airway edema or compromise Bilateral TMs are retracted but show no secondary findings to suggest infection Eyes PERRL and EOMs intact bilaterally General Eye ED: Negative for scleral icterus Neck supple Neck Narrative: No nuchal rigidity or meningeal signs Resp normal respiratory effort Resp Narrative: Breath sounds are diminished throughout with faint rhonchi in the bilateral bases but no signs of respiratory distress Cardio regular rhythm Rate: tachycardic and other Other Details: Tachycardic rate with regular rhythm Radial and carotid pulses are equal and symmetric GI non-tender, non-distended and no masses GI Narrative: Soft nontender and nondistended with hyperactive bowel sounds No voluntary guarding or rigidity or pulsatile mass Auscultation: hyperactive bowel sounds Palpation: soft Extremity normal to inspection Extremity Narrative: No asymmetric edema no pitting edema negative Homans' sign bilaterally Neuro oriented x3, CN's II-XII intact bilaterally and no sensory deficits noted Sensorium / Orientation: alert Motor Exam: strength 5/5 throughout Psych mental status grossly normal Skin no rashes or lesions noted General Skin Exam: Negative for jaundice or pallor MDM MDM MDM Narrative Medical decision making narrative: Patient arrived to the ER tachycardic and hypertensive but otherwise afebrile. Pulse ox was 97% on room air. History and exam is most concerning for viral infection such as COVID versus influenza versus RSV. Patient may also have potential pneumonia. Therefore a chest x-ray as well as viral swab were obtained. Chest x-ray revealed no acute lung pathology. Viral swab was positive for influenza which correlates with her history and exam. At this time she is not hypoxic she is not in respiratory distress she is not requiring supplemental oxygen and therefore there is no need for further workup in the ER and she is otherwise safe for discharge with symptomatic care History & Record Review Discussion w/independent historian: EMS personnel, Patient and Family Radiography Diagnostic Testing: Clinical Impression(s) from Imaging Studies Chest X-Ray 10/31/24 00:07 IMPRESSION: No acute cardiopulmonary process. Reading Location: [facility] Chest x-ray as interpreted by the emergency medicine physician reveals no acute infiltrate pneumothorax or pleural effusion Discharge Plan Triage Chief Complaint: Cold Sx ED Provider: Douglas Rodrigues Dx/Rx/DC Orders Clinical Impression: Influenza A, ADHD, Hypertension Instructions: ED Fever Control (Adult), ED Influenza (Adult) Prescriptions: New prednisone 20 mg tablet 40 mg PO DAILY 5 Days Qty: 10 0RF ondansetron 4 mg tablet,disintegrating 4 mg PO TID PRN (Reason: nausea and vomiting) Qty: 21 0RF oseltamivir [Tamiflu] 75 mg capsule 75 mg PO BID 5 Days Qty: 10 0RF codeine-guaifenesin [Guaifenesin AC] 10-100 mg/5 mL liquid 10 ml PO 4X/DAY PRN (Reason: flu symptoms) 7 Days Qty: 280 0RF No Action cetirizine 10 mg tablet 10 mg PO DAILY norethindrone (contraceptive) 0.35 MG tablet 1 tab PO DAILY meclizine 25 mg tablet 25 mg PO TID PRN (Reason: vertigo) Qty: 20 0RF levothyroxine 88 mcg tablet 88 mcg PO DAILY Patient Comments: take 1 tablet by mouth once daily before breakfast sertraline 100 mg tablet 100 mg PO DAILY pantoprazole 20 mg tablet,delayed release (DR/EC) 20 mg PO DAILY PRN (Reason: abdominal discomfort) bupropion HCl 150 mg tablet extended release 24 hr 150 mg PO DAILY cholecalciferol (vitamin D3) [Vitamin D3] 25 mcg (1,000 unit) tablet 25 mcg PO DAILY hydroxyzine pamoate 50 mg capsule 50 mg PO DAILY PRN (Reason: anxiety) olopatadine [Pataday Twice Daily Relief] 0.1 % drops 1 drp EACH EYE BID PRN Rx Instructions: separate doses by at least 6-8 hours lidocaine 5 % adhesive patch,medicated 1 patch topical DAILY ondansetron HCl 4 mg tablet 4 mg PO TID PRN (Reason: nausea and vomiting) 3 Days Qty: 9 0RF sulfamethoxazole-trimethoprim [Bactrim DS] 800-160 mg tablet 1 tab PO BID 7 Days Qty: 14 0RF Stand Alone Forms: ED Work / School Excuse Primary Care Provider: Marixa Taylor Referrals: Marixa Taylor, DO [Primary Care Provider] - Print Language: Indian Disposition Disposition: Home, Self Care Discharge Date/Time: 10/31/24 02:38
[2024-10-31] MEDS: guaiFENesin/Codeine 5 ML UDC 10 ML PO (02:34)
[2024-10-31 02:37] VITALS: BP 163/90; PULSE 78; RESP 18; TEMP 36.7; O2SAT 99
== END 2024-10-31 02:38 | disposition home or self-care (01) ==
PROVIDERS: Emergency Provider Emergency Medicine; PCP Family Medicine; Visit Provider Emergency Medicine
DX: J10.1 Influenza due to other identified influenza virus with other respiratory manifestations (principal); I10 Essential (primary) hypertension; F90.9 Attention-deficit hyperactivity disorder, unspecified type; Z79.899 Other long term (current) drug therapy
CPT/HCPCS: 71046; 87631; 99285

== ENCOUNTER 2024-11-04 13:21 | Emergency (ER) | payer MEDICARE, MEDICAID, SELFPAY ==
[2024-11-04 13:22] VITALS: BP 141/106; PULSE 104; RESP 18; TEMP 36.4; O2SAT 98; BMI 39.9
[2024-11-04 14:03] VITALS: O2SAT 96
--- NOTE | 2024-11-04 14:19 | EX.ED.DYSGE1 ---
HPI <SAMAN Cortez - Last Filed: 11/04/24 15:29> History of Present Illness Chief Complaint: Cough Narrative Narrative: Patient presenting today with right sided ear pain and flulike symptoms she has had over the last several days. She was seen here on 11/21 and was diagnosed with influenza A, she had a chest x-ray at that time that was negative for pneumonia. She reports that her cough is resolving and she is taking [id number] cough medicine which is helping. She reports that her mom made her come in to be seen but she does feel her symptoms are improving aside from her ear pain. She denies fevers and chills, she reports that she is eating and drinking normally. Triage report notes nausea, vomiting, diarrhea, patient reports occasional nausea but denies having any vomiting or diarrhea. [facility] <SAMAN Cortez - Last Filed: 11/04/24 15:29> [facility] Medical History Fall Sprain of left index finger Contusion of left index finger Injury of left index finger Avulsion of head of fibula Osteochondral fracture COVID-19 Contact with and (suspected) exposure to other viral communicable diseases Acute otitis media, right Bee sting Contusion of right foot Sprain of right index finger 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 Sprain of right hand Right wrist sprain Nondisplaced fracture of proximal phalanx of left lesser toe(s), initial encounter for closed fracture Nondisplaced fracture of middle phalanx of left lesser toe(s), initial encounter for closed fracture Injury of left toe Madelung's deformity Undersocialized conduct disorder, aggressive type, moderate ADHD Oppositional defiant disorder Intellectual disability Thyroid disease Knee pain Severe headache Hay fever Fatigue 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 HTN (hypertension) Home Medications ?Medication ?Instructions ?Recorded ?Last Taken ?Type norethindrone (contraceptive) 0.35 1 tab PO DAILY hormones/ 01/21/19 04/22/19 History mg tablet control meclizine 25 mg tablet 25 mg PO TID PRN vertigo #20 tabs 01/31/21 Unknown Rx cetirizine 10 mg tablet 10 mg PO DAILY 01/01/22 11/04/24 History levothyroxine 88 mcg tablet 88 mcg PO DAILY 05/04/22 11/04/24 History sertraline 100 mg tablet 100 mg PO DAILY 10/19/22 Unknown History bupropion HCl 150 mg 24 hr tablet, 150 mg PO DAILY 12/04/23 11/04/24 History extended release cholecalciferol (vitamin D3) 25 25 mcg PO DAILY 12/04/23 Unknown History mcg (1,000 unit) tablet (Vitamin D3) hydroxyzine pamoate 50 mg capsule 50 mg PO DAILY PRN anxiety 12/04/23 Unknown History pantoprazole 20 mg tablet,delayed 20 mg PO DAILY PRN abdominal 12/04/23 Unknown History release discomfort lidocaine 5 % topical patch 1 patch topical DAILY 07/04/24 Unknown History olopatadine 0.1 % eye drops 1 drp EACH EYE BID PRN 07/04/24 Unknown History (Pataday Twice Daily Relief) ondansetron HCl 4 mg tablet 4 mg PO TID PRN nausea and 07/04/24 Unknown Rx vomiting 3 days #9 tabs sulfamethoxazole 800 1 tab PO BID 7 days #14 tabs 07/04/24 Unknown Rx mg-trimethoprim 160 mg tablet (Bactrim DS) codeine 10 mg-guaifenesin 100 mg/5 10 ml PO 4X/DAY PRN flu symptoms 7 10/31/24 Unknown Rx mL oral liquid (Guaifenesin AC) days #280 mL ondansetron 4 mg disintegrating 4 mg PO TID PRN nausea and 10/31/24 Unknown Rx tablet vomiting #21 tabs oseltamivir 75 mg capsule (Tamiflu) 75 mg PO BID 5 days #10 caps 10/31/24 Unknown Rx prednisone 20 mg tablet 40 mg (2 x 20 mg) PO DAILY 5 days 10/31/24 Unknown Rx #10 tabs cefdinir 300 mg capsule 300 mg PO BID #13 caps 11/04/24 Unknown Rx Allergy/AdvReac Type Severity Reaction Status Date / Time amoxicillin (From Augmentin) Allergy Other Verified 11/04/24 15:12 amoxicillin trihydrate (From Allergy Other Verified 11/04/24 15:12 Augmentin) azithromycin Allergy Other Verified 11/04/24 15:12 clavulanic acid (From Allergy Other Verified 11/04/24 15:12 Augmentin) erythromycin base (From Allergy Unknown Verified 11/04/24 15:12 E-Mycin) potassium clavulanate (From Allergy Other Verified 11/04/24 15:12 Augmentin) ibuprofen AdvReac Nausea Verified 11/04/24 15:12 Surgical History History of ear surgery History of eye surgery Social History household members: other details: Lives with her grandmother Smoking Status: Never smoker alcohol intake: never substance use type: does not use ROS <SAMAN Cortez - Last Filed: 11/04/24 15:29> ROS ED Constitutional Constitutional ED: Denies chills or fever(s) ENT ENT ED: Reports ear pain right Cardiovascular Cardiovascular: Denies chest pain Respiratory/Chest Respiratory/Chest: Reports cough; Denies dyspnea Gastrointestinal Gastrointestinal: Reports nausea; Denies abdominal pain or vomiting Musculoskeletal Musculoskeletal: Denies arthralgias or myalgias Integumentary Denies rash Neurologic Neurologic: Denies weakness EXAM <SAMAN Cortez - Last Filed: 11/04/24 15:29> Physical Exam Const Vital Signs: 11/04/24 13:22 11/04/24 14:03 Temperature 97.5 F L Temperature Source Temporal Pulse Rate 104 H Respiratory Rate 18 Respiratory Effort Normal Respiratory Depth Normal Respiratory Pattern Normal Blood Pressure 141/106 H Blood Pressure Mean 117 Pulse Ox 98 Oxygen Delivery Method Room Air Room Air Positive well nourished, well developed and no apparent distress General Appearance ED: well developed HEENT Reports normocephalic and head/scalp atraumatic HEENT Narrative: right TM erythematous and bulging, left TM clear. Bilateral EACs clear. Posterior pharynx clear, no tonsillar exudate, uvula midline. Mouth ED: Yes moist mucous membranes normal Eyes PERRL and EOMs intact bilaterally Neck full ROM and supple Chest Wall inspection of chest normal Resp normal respiratory effort and clear to auscultation bilaterally Cardio regular rate and regular rhythm GI soft to palpation, non-tender, non-distended and no masses Back/Spine normal ROM and normal to inspection Extremity normal to inspection and full ROM Neuro oriented x3, CN's II-XII intact bilaterally, moves all extremities, no focal motor deficits and no sensory deficits noted Sensorium / Orientation: awake and alert Psych mental status grossly normal and thought process normal Skin no rashes or lesions noted and no wounds <Dr. Godfrey Mcintosh MD - Last Filed: 11/04/24 15:08> Physical Exam Const Vital Signs: 11/04/24 13:22 11/04/24 14:03 Temperature 97.5 F L Temperature Source Temporal Pulse Rate 104 H Respiratory Rate 18 Respiratory Effort Normal Respiratory Depth Normal Respiratory Pattern Normal Blood Pressure 141/106 H Blood Pressure Mean 117 Pulse Ox 98 Oxygen Delivery Method Room Air Room Air MDM <SAMAN Cortez - Last Filed: 11/04/24 15:29> [facility] Narrative Medical decision making narrative: Patient presenting today with right ear pain, she currently has influenza A, she was diagnosed on 11/21, she had a chest x-ray at that time that was clear. She reports that the majority of her symptoms are resolving aside from the ear pain. She is nontoxic-appearing and in no acute distress, her examination is consistent with otitis media. She will be started on cefdinir with first dose here. Recommended she follow-up with her PCP. She will be discharged home in stable condition. I have personally performed a face to face assessment of the patient and have reviewed the YARIEL Note. I performed a substantive portion of the visit including all aspects of the following. My fr[place] findings include: History is 23-year-old female diagnosed with influenza on the fourth. States she has had right ear pain since that time. Denies fever. No vomiting. No ear discharge. No trauma. Exam is [well-appearing 23-year-old female. Vital signs are stable afebrile. She does not look septic or toxic. No distress. H EENT exam pupils round react light. Moist mucous membranes. Posterior pharynx unremarkable. Left TM normal. Right retracted dull and mildly red. No perforation. Canal normal. Neck nontender no lymphadenopathy. No eustachian tube tenderness. Lungs clear. Heart regular rhythm. No murmur. Abdomen soft nontender. Moving all 4 extremities. Nontender no edema. Skin unremarkable. No rash. Back nontender. She is awake and alert. No focal motor deficits.] Medical Decision Making [23-year-old status post influenza on the fourth now with right earache consistent with otitis media. Patient replaced on oral antibiotics and discharged to home.] Other additions or changes: [None] <Dr. Godfrey Mcintosh MD - Last Filed: 11/04/24 15:08> MDM MDM Narrative Medical decision making narrative: I have personally performed a face to face assessment of the patient and have reviewed the YARIEL Note. I performed a substantive portion of the visit including all aspects of the following. My france findings include: History is 23-year-old female diagnosed with influenza on the fourth. States she has had right ear pain since that time. Denies fever. No vomiting. No ear discharge. No trauma. Exam is [well-appearing 23-year-old female. Vital signs are stable afebrile. She does not look septic or toxic. No distress. H EENT exam pupils round react light. Moist mucous membranes. Posterior pharynx unremarkable. Left TM normal. Right retracted dull and mildly red. No perforation. Canal normal. Neck nontender no lymphadenopathy. No eustachian tube tenderness. Lungs clear. Heart regular rhythm. No murmur. Abdomen soft nontender. Moving all 4 extremities. Nontender no edema. Skin unremarkable. No rash. Back nontender. She is awake and alert. No focal motor deficits.] Medical Decision Making [23-year-old status post influenza on the fourth now with right earache consistent with otitis media. Patient replaced on oral antibiotics and discharged to home.] Other additions or changes: [None] Discharge Plan Triage Chief Complaint: Cough ED Midlevel Provider: Marlin Mendoza ED Provider: Godfrey Mcintosh Dx/Rx/DC Orders Clinical Impression: Acute right otitis media Instructions: ED Otitis Media Adult Prescriptions: New cefdinir 300 mg capsule 300 mg PO BID Qty: 13 0RF No Action cetirizine 10 mg tablet 10 mg PO DAILY norethindrone (contraceptive) 0.35 MG tablet 1 tab PO DAILY meclizine 25 mg tablet 25 mg PO TID PRN (Reason: vertigo) Qty: 20 0RF levothyroxine 88 mcg tablet 88 mcg PO DAILY Patient Comments: take 1 tablet by mouth once daily before breakfast sertraline 100 mg tablet 100 mg PO DAILY pantoprazole 20 mg tablet,delayed release (DR/EC) 20 mg PO DAILY PRN (Reason: abdominal discomfort) bupropion HCl 150 mg tablet extended release 24 hr 150 mg PO DAILY cholecalciferol (vitamin D3) [Vitamin D3] 25 mcg (1,000 unit) tablet 25 mcg PO DAILY hydroxyzine pamoate 50 mg capsule 50 mg PO DAILY PRN (Reason: anxiety) olopatadine [Pataday Twice Daily Relief] 0.1 % drops 1 drp EACH EYE BID PRN Rx Instructions: separate doses by at least 6-8 hours lidocaine 5 % adhesive patch,medicated 1 patch topical DAILY ondansetron HCl 4 mg tablet 4 mg PO TID PRN (Reason: nausea and vomiting) 3 Days Qty: 9 0RF sulfamethoxazole-trimethoprim [Bactrim DS] 800-160 mg tablet 1 tab PO BID 7 Days Qty: 14 0RF prednisone 20 mg tablet 40 mg PO DAILY 5 Days Qty: 10 0RF ondansetron 4 mg tablet,disintegrating 4 mg PO TID PRN (Reason: nausea and vomiting) Qty: 21 0RF oseltamivir [Tamiflu] 75 mg capsule 75 mg PO BID 5 Days Qty: 10 0RF codeine-guaifenesin [Guaifenesin AC] 10-100 mg/5 mL liquid 10 ml PO 4X/DAY PRN (Reason: flu symptoms) 7 Days Qty: 280 0RF Primary Care Provider: Marixa Taylor Referrals: Marixa Taylor, DO [Primary Care Provider] - 5-7 Days Activity Restrictions/Additional Instructions: Return for any worsening symptoms, follow-up with PCP Print Language: Canadian Disposition Disposition: Home, Self Care Discharge Date/Time: 11/04/24 15:15
[2024-11-04] MEDS: Cefdinir 300 MG Capsule PO (15:11)
== END 2024-11-04 15:15 | disposition home or self-care (01) ==
PROVIDERS: Emergency Provider Emergency Medicine; PCP Family Medicine; Visit Provider Emergency Medicine
DX: H66.91 Otitis media, unspecified, right ear (principal); J10.1 Influenza due to other identified influenza virus with other respiratory manifestations; R19.7 Diarrhea, unspecified; R11.2 Nausea with vomiting, unspecified; I10 Essential (primary) hypertension; Z79.890 Hormone replacement therapy; Z79.899 Other long term (current) drug therapy
CPT/HCPCS: 99282

== ENCOUNTER 2024-11-06 13:49 | Emergency (ER) | payer MEDICARE, MEDICAID, SELFPAY ==
[2024-11-06 13:50] VITALS: BP 142/102; PULSE 106; RESP 16; TEMP 36.8; O2SAT 100; BMI 40.1
[2024-11-06] MEDS: Acetaminophen 500 MG Tablet 1000 MG PO (15:45)
--- NOTE | 2024-11-06 15:47 | EDS_ITS ---
HPI History of Present Illness Chief Complaint: Ear Problem Informant: patient Narrative Narrative: Left ear pain hearing loss last 6 days. Was seen 6 days ago diagnosed with flu. Flu symptoms are improving with cough and muscle aches. No drainage. She had fever for 6 days when she had the flu. No vomiting or diarrhea. Edition states she has pain left leg after falling while coming to the emergency department. No head injuries. No anticoagulants. History of hypertension per patient. 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 Sprain of right hand Right wrist sprain Nondisplaced fracture of proximal phalanx of left lesser toe(s), initial encounter for closed fracture Nondisplaced fracture of middle phalanx of left lesser toe(s), initial encounter for closed fracture Injury of left toe Madelung's deformity Undersocialized conduct disorder, aggressive type, moderate ADHD Oppositional defiant disorder Intellectual disability Thyroid disease Knee pain Severe headache Hay fever Fatigue 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 HTN (hypertension) Home Medications ?Medication ?Instructions ?Recorded ?Last Taken ?Type norethindrone (contraceptive) 0.35 1 tab PO DAILY horm ones/ 01/21/19 04/22/19 History mg tablet control meclizine 25 mg tablet 25 mg PO TID PRN vertigo #20 tabs 01/31/21 Unknown Rx cetirizine 10 mg tablet 10 mg PO DAILY 01/01/2205/21 History levothyroxine 88 mcg tablet 88 mcg PO DAILY 05/04/22 0 11/04/24 History sertraline 100 mg tablet 100 mg PO DAILY 10/19/22 Unk nown History bupropion HCl 150 mg 24 hr tablet, 150 mg PO DAILY 06/2011/04/24 History extended release cholecalciferol (vitamin D3) 25 25 mcg PO DAILY Unknown History mcg (1,000 unit) tablet (Vitamin D3) hydroxyzine pamoate 50 mg capsule 50 mg PO DAILY PRN a nxiety 12/04/23 Unknown History pantoprazole 20 mg tablet,delayed 20 mg PO DAILY PRN a bdominal 12/04/23 Unknown History release discomfort lidocaine 5 % topical patch 1 patch topical DAILY 05/20 Unknown History olopatadine 0.1 % eye drops 1 drp EACH EYE BID PRN 05/20 Unknown History (Pataday Twice Daily Relief) ondansetron HCl 4 mg tablet 4 mg PO TID PRN nausea and 07/04/24 Unknown Rx vomiting 3 days #9 tabs sulfamethoxazole 800 1 tab PO BID 7 days #14 tabs 07/04/24 Unknown Rx mg-trimethoprim 160 mg tablet (Bactrim DS) codeine 10 mg-guaifenesin 100 mg/5 10 ml PO 4X/DAY PRN flu symptoms 7 10/31/24 Unknown Rx mL oral liquid (Guaifenesin AC) days #280 mL ondansetron 4 mg disintegrating 4 mg PO TID PRN nausea and 10/31/24 Unknown Rx tablet vomiting #21 tabs oseltamivir 75 mg capsule (Tamiflu) 75 mg PO BID 5 day s #10 caps 10/31/24 U nknown Rx prednisone 20 mg tablet 40 mg (2 x 20 mg) PO DAILY 5 days 10/31/24 Unknown Rx #10 tabs cefdinir 300 mg capsule 300 mg PO BID #13 caps 11/04 Unknown Rx Allergy/AdvReac Type Severity Reaction Status Date / Time amoxicillin (From Augmentin) Allergy Other Verified 11/06/24 13:51 amoxicillin trihydrate (From Allergy Other Verified 11/06/24 13:51 Augmentin) azithromycin Allergy Other Verified 11/06/24 13:51 clavulanic acid (From Allergy Other Verified 11/06/24 13:51 Augmentin) erythromycin base (From Allergy Unknown Verified 11/06/24 13:51 E-Mycin) potassium clavulanate (From Allergy Other Verified 11/06/24 13:51 Augmentin) ibuprofen AdvReac Nausea Verified 11/06/24 13:51 Surgical History History of ear surgery History of eye surgery Social History household members: other details: Lives with her grandmother Smoking Status: Never smoker alcohol intake: never substance use type: does not use ROS ROS ED Constitutional Constitutional ED: Denies chills, fever(s) or sweats ENT ENT ED: Reports ear pain; Denies sore throat Cardiovascular Cardiovascular: Denies chest pain, leg edema, palpitations or racing heartbeat Respiratory/Chest Respiratory/Chest: Denies cough, dyspnea or dyspnea on exertion Gastrointestinal Gastrointestinal: Denies abdominal pain, diarrhea, nausea or vomiting Genitourinary Genitourinary ED: Denies dysuria, hematuria or urinary frequency Musculoskeletal Musculoskeletal: Reports extremity pain; Denies back pain or neck pain Integumentary Denies rash or wounds Neurologic Neurologic: Denies headache(s), paresthesias or weakness EXAM Physical Exam Const Vital Signs: 11/06/24 13:50 Temperature 98.2 F Temperature Source Temporal Pulse Rate 106 H Respiratory Rate 16 Blood Pressure 142/102 H Blood Pressure Mean 115 Pulse Ox 100 Oxygen Delivery Method Room Air Positive well nourished and well developed General Appearance ED: well developed and NAD HEENT Reports moist mucous membranes HEENT Narrative: Right ear: Normal canal normal membrane. Left ear: Normal canal normal membrane there is no fluid no erythema. TM intact. Started on normocephalic and atraumatic Eyes General Eye ED: Yes normal appearance of both eyes Neck full ROM Chest Wall Chest: Negative for tenderness Resp normal respiratory effort and normal air movement Effort and Inspection: symmetric chest movement; Negative for respiratory distress Cardio regular rate, regular rhythm and no murmurs Peripheral Pulses: pulses 2+ throughout GI normal to inspection, nondistended, normoactive bowel sounds and non-tender Palpation: Negative for guarding or rebound tenderness present Extremity normal to inspection Extremity Narrative: Left leg: Tender palpation mid fibula no crepitus. Soft compartments. No ecch ymosis. Pulses intact distally. General Extremety ED: Negative for edema or tenderness General Extremity: Negative for edema Neuro oriented x3 and no sensory deficits noted Sensorium / Orientation: awake and alert Skin no rashes or lesions noted and no wounds MDM MDM MDM Narrative Medical decision making narrative: Interventions / MDM: Differential diagnosis: Otalgia, eustachian tube dysfunction, contusion Diagnosis considered but do not suspect: Fracture however x-ray negative. No clinical infection of otitis media however current treatment with antibiotics. My EKG interpretation: N/A Imaging independently reviewed and interpreted by myself: Left tib-fib 2 views: No fracture noted. Previous hardware intact proximal tibia. External documents reviewed: October positive for influenza A. Was seen 2 days ago also in the ED diagnosed with right otitis media with retracted eardrum. Test considered but not ordered:N/A ED course: Patient with left otalgia with no signs of infection. Recent influenza likely eustachian tube dysfunction. Also complains of left lower leg injury, in the department. Started on Tylenol. X-ray tib-fib obtained for further evaluation. 1610: X-ray negative. Gene wrap provided to the leg. She is currently on antibiotics for otitis media with clinically improving evaluation. She will fin layton her antibiotics. She referred back to ENT for which she is established. Re-evaluation: stable Disposition discussed with patient/family/significant other: Patient Case discussed with consulting clinician: N/A This note was generated with [employer] dictation software. It may contain incorrect words, spelling, and punctuation that were not noted in checking the note before signing. : Radiography Diagnostic Testing: Clinical Impression(s) from Imaging Studies Tibia/Fibula X-Ray 11/06/24 15:55 IMPRESSION: Prior healed surgery of the left tibial tubercle. No evidence of metallic fracture or screw loosening. No soft tissue gas is seen. No fracture or dislocation is evident. If clinical concern persists, short-term follow-up imaging may be obtained to rule out a currently occult fracture. Reading Location: [address] Discharge Plan Triage Chief Complaint: Ear Problem ED Provider: Christian Cortez Dx/Rx/DC Orders Clinical Impression: Otalgia of left ear, Contusion of left leg Instructions: ED Contusion, Lower Extremity Prescriptions: No Action cetirizine 10 mg tablet 10 mg PO DAILY norethindrone (contraceptive) 0.35 MG tablet 1 tab PO DAILY meclizine 25 mg tablet 25 mg PO TID PRN (Reason: vertigo) Qty: 20 0RF levothyroxine 88 mcg tablet 88 mcg PO DAILY Patient Comments: take 1 tablet by mouth once daily before breakfast sertraline 100 mg tablet 100 mg PO DAILY pantoprazole 20 mg tablet,delayed release (DR/EC) 20 mg PO DAILY PRN (Reason: abdominal discomfort) bupropion HCl 150 mg tablet extended release 24 hr 150 mg PO DAILY cholecalciferol (vitamin D3) [Vitamin D3] 25 mcg (1,000 unit) tablet 25 mcg PO DAILY hydroxyzine pamoate 50 mg capsule 50 mg PO DAILY PRN (Reason: anxiety) olopatadine [Pataday Twice Daily Relief] 0.1 % drops 1 drp EACH EYE BID PRN Rx Instructions: separate doses by at least 6-8 hours lidocaine 5 % adhesive patch,medicated 1 patch topical DAILY ondansetron HCl 4 mg tablet 4 mg PO TID PRN (Reason: nausea and vomiting) 3 Days Qty: 9 0RF sulfamethoxazole-trimethoprim [Bactrim DS] 800-160 mg tablet 1 tab PO BID 7 Days Qty: 14 0RF cefdinir 300 mg capsule 300 mg PO BID Qty: 13 0RF prednisone 20 mg tablet 40 mg PO DAILY 5 Days Qty: 10 0RF ondansetron 4 mg tablet,disintegrating 4 mg PO TID PRN (Reason: nausea and vomiting) Qty: 21 0RF oseltamivir [Tamiflu] 75 mg capsule 75 mg PO BID 5 Days Qty: 10 0RF codeine-guaifenesin [Guaifenesin AC] 10-100 mg/5 mL liquid 10 ml PO 4X/DAY PRN (Reason: flu symptoms) 7 Days Qty: 280 0RF Primary Care Provider: Marixa Taylor Referrals: Hasmukh Bella MD [Med Staff - Active Staff] - 1-2 Weeks Marixa Taylor, DO [Primary Care Provider] - Activity Restrictions/Additional Instructions: X-ray left leg negative for fracture. Your ear evaluation today looks improved. However you are currently on antibiotic started 2 days ago for which you should finish. Continue Tylenol up to 1 g every 6 hours. Follow-up with Dr. Bella. Print Language: Italian Disposition Disposition: Home, Self Care Discharge Date/Time: 11/06/24 16:37
--- NOTE | 2024-11-06 15:55 | RAD_ITS ---
PROCEDURE: TIBIA FIBULA 2 VIEWS REASON FOR EXAM: Injury. TECHNIQUE: 3 view(s) of each tibia and fibula COMPARISON: None. RAD/Tibia & Fibula 2 Views IMPRESSION: Prior healed surgery of the left tibial tubercle. No evidence of metallic frac ture or screw loosening. No soft tissue gas is seen. No fracture or dislocation is evident. If clinical concern persists, short-term follow-up imaging may be obtained to r ule out a currently occult fracture. Reading Location: [id number]
== END 2024-11-06 16:37 | disposition home or self-care (01) ==
PROVIDERS: Emergency Provider Emergency Medicine; PCP Family Medicine; Visit Provider Emergency Medicine
DX: H92.02 Otalgia, left ear (principal); M79.605 Pain in left leg; I10 Essential (primary) hypertension; M79.10 Myalgia, unspecified site; W19.XXXA Unspecified fall, initial encounter; Z79.890 Hormone replacement therapy; Z79.899 Other long term (current) drug therapy
CPT/HCPCS: 73590; 99283